=== PATIENT | male | born 1980 | race African-American/Black ===

== ENCOUNTER 2016-09-12 16:54 | Emergency (ER) | payer MEDICAID ==
[2016-09-12] MEDS ORDERED: SODIUM CHLORIDE 0.9% 1,000 ML IV ONE ×2 (17:10→19:50)
[2016-09-12] MEDS ORDERED: METOCLOPRAMIDE 10 MG/2 ML VIAL IVP STA (17:26)
[2016-09-12] MEDS ORDERED: ONDANSETRON 4 MG/2 ML VIAL IVP STA ×2 (17:26→18:56)
[2016-09-12] MEDS ORDERED: METOCLOPRAMIDE 10 MG/2 ML VIAL IVP ONE (17:27)
[2016-09-12] MEDS ORDERED: ONDANSETRON 4 MG/2 ML VIAL ONE ×2 (17:27→18:59)
[2016-09-12] MEDS ORDERED: PROMETHAZINE INJ 25 MG in SODIUM CHLORIDE 0.9% 50 ML IV STA (18:06)
[2016-09-12] MEDS ORDERED: PROMETHAZINE 25 MG/1 ML VIAL ONE (18:08)
[2016-09-12] MEDS ORDERED: DICYCLOMINE 10 MG CAPSULE PO STA (18:55)
[2016-09-12] MEDS ORDERED: DICYCLOMINE 10 MG CAPSULE PO ONE (19:31)
== END 2016-09-12 20:20 | disposition left against medical advice (07) ==
DX: R11.2 Nausea with vomiting, unspecified (principal); R10.13 Epigastric pain; R03.0 Elevated blood-pressure reading, without diagnosis of hypertension; Z86.39 Personal history of other endocrine, nutritional and metabolic disease; G47.419 Narcolepsy without cataplexy; F17.200 Nicotine dependence, unspecified, uncomplicated
CPT/HCPCS: 36415; 80053; 81003; 83690; 85025; 96361; 96365; 96375; 96376; 99283; 99284; A9270

== ENCOUNTER 2017-03-15 11:03 | Outpatient (CLI) | payer MEDICAID | END 2017-03-15 11:04 | disposition critical access hospital (66) | LOC: EMS 11:03 | PROVIDERS: ATTEND Surgery | DX: R10.9 Unspecified abdominal pain (principal); R11.2 Nausea with vomiting, unspecified | CPT/HCPCS: A0425; A0427 ==

== ENCOUNTER 2017-03-15 11:25 | Emergency (ER) | payer MEDICAID ==
[2017-03-15] MEDS ORDERED: HYDROmorphone 1 MG/ML SYRINGE IVP STA ×2 (11:56→12:15)
[2017-03-15] MEDS ORDERED: METOCLOPRAMIDE 10 MG/2 ML VIAL IVP STA (11:56)
[2017-03-15] MEDS ORDERED: SODIUM CHLORIDE 0.9% 1,000 ML IV ONE (11:56)
[2017-03-15] MEDS ORDERED: METOCLOPRAMIDE 10 MG/2 ML VIAL ONE (12:03)
[2017-03-15] MEDS ORDERED: HYDROmorphone 1 MG/ML SYRINGE ONE ×2 (12:03→12:23)
--- NOTE | 2017-03-15 12:07 | ED Physician Documentation ---
PD HPI ABD PAIN - Stated complaint Stated Complaint: N/V - Chief complaint Chief Complaint: Abd Pain - History obtained from History obtained from: Patient - History of Present Illness Timing - onset: Today Timing - duration: Hours Timing - details: Abrupt onset, Still present Quality: Cramping, Aching, Pain Location: RUQ, Epigastric Radiation: Upper back Improved by: No: Vomiting, Position Worsened by: Eating, Moving, Palpation. No: Breathing, Position Associated symptoms: Nausea, Vomiting. No: Fever, Diarrhea, Dysuria Similar symptoms before: Diagnosis (pancreatitis from alcohol in the past, but currently says he has not drank for 4-5 days.) Recently seen: Not recently seen Review of Systems Constitutional: denies: Fever, Chills Nose: denies: Rhinorrhea / runny nose, Congestion Throat: denies: Sore throat Respiratory: denies: Cough GI: reports: Abdominal Pain, Nausea, Vomiting. denies: Constipation, Diarrhea : denies: Dysuria, Frequency Skin: denies: Rash, Lesions Neurologic: reports: Generalized weakness. denies: Focal weakness, Numbness PD PAST MEDICAL HISTORY - Past Medical History Cardiovascular: None Respiratory: None Neuro: None Endocrine/Autoimmune: None GI: Pancreatitis : None HEENT: None Psych: None Musculoskeletal: None Derm: None - Past Surgical History Past Surgical History: Yes Ortho: Other - Present Medications Home Medications: Ambulatory Orders Medication Instructions Recorded Confirmed Ondansetron Odt [Zofran] 4 mg TL Q6H PRN #10 tablet 09/12/16 Ondansetron Odt [Zofran] 4 mg TL Q6H PRN #15 tablet 03/15/17 Oxycodone HCl/Acetaminophen 1 each PO Q6H PRN #20 tablet 03/15/17 [Percocet 5-325 mg Tablet] Promethazine [Phenergan] 25 - 50 mg PO Q6H PRN #30 tab 03/15/17 - Allergies Allergies/Adverse Reactions: Allergies Allergy/AdvReac Type Severity Reaction Status Date / Time No Known Drug Allergies Allergy Verified 05/18/15 06:22 - Social History Does the pt smoke?: Yes Smoking Status: Current every day smoker Does the pt drink ETOH?: Yes Does the pt have substance abuse?: No - Immunizations Immunizations are current?: No - POLST Patient has POLST: No PD ED PE NORMAL - Vitals Vital signs reviewed: Yes - General General: Alert and oriented X 3, Well developed/nourished, Other (appears uncomfortable and in pain. ) - HEENT HEENT: Moist mucous membranes, Pharynx benign - Neck Neck: Supple, no meningeal sign, No adenopathy - Cardiac Cardiac: RRR, No murmur - Respiratory Respiratory: Clear bilaterally - Abdomen Abdomen: Soft, Non distended, No organomegaly, Other (diminished bowel sounds and very tender upper abd/right and mid. ) - Male Male : Deferred - Rectal Rectal: Deferred - Back Back: No CVA TTP - Derm Derm: Normal color, Warm and dry, No rash - Extremities Extremities: No tenderness to palpate, Normal ROM s pain - Neuro Neuro: Alert and oriented X 3, No motor deficit, Normal speech Results - Vitals Vitals: Vital Signs - 24 hr 03/15/17 03/15/17 03/15/17 11:35 13:22 14:04 Temperature 36.8 C Heart Rate 45 L 40 L 42 L Respiratory 14 12 14 Rate Blood Pressure 193/97 H 100/62 107/58 L O2 Saturation 98 98 100 Oxygen O2 Source Room air - Labs Labs: Laboratory Tests 03/15/17 03/15/17 12:34 12:34 WBC 6.0 RBC 5.09 Hgb 13.6 L Hct 41.0 L MCV 80.5 MCH 26.8 L MCHC 33.3 RDW 13.7 Plt Count 265 MPV 6.9 L Neut # 4.9 Lymph # 0.7 L [place] # 0.3 Eos # 0.0 Baso # 0.0 Absolute Nucleated RBC 0.01 Nucleated RBCs 0.1 Sodium 139 Potassium 3.9 Chloride 107 Carbon Dioxide 24 Anion Gap 8.0 BUN 11 Creatinine 0.8 Estimated GFR (MDRD) 133 Glucose 133 H Calcium 8.6 Total Bilirubin 0.5 AST 23 ALT 43 Alkaline Phosphatase 67 Total Protein 6.6 L Albumin 4.3 Globulin 2.3 Albumin/Globulin Ratio 1.9 Lipase 138 H Ethyl Alcohol < 5.0 PD MEDICAL DECISION MAKING - ED course Complexity details: reviewed results, re-evaluated patient (improved with IV meds. He feels okay to try treatment at home. I did not feel imaging needed. ), considered differential, d/w patient Departure - Departure Disposition: Home, Self Care Clinical Impression: Pancreatitis, acute Qualifiers: Pancreatitis type: unspecified pancreatitis type Acute pancreatitis complication: no infection or necrosis Qualified Code(s): K85.90 - Acute pancreatitis without necrosis or infection, unspecified Gastritis Qualifiers: Gastritis type: unspecified gastritis Chronicity: acute Gastritis bleeding: without bleeding Qualified Code(s): K29.00 - Acute gastritis without bleeding Condition: Stable Record reviewed to determine appropriate education?: Yes Instructions: ED Gastritis, ED Pancreatitis Follow-Up: Brittny Rainey PA-C [Primary Care Provider] - Prescriptions: Oxycodone HCl/Acetaminophen [Percocet 5-325 mg Tablet] 1 each PO Q6H PRN #20 tablet PRN Reason: Pain Promethazine [Phenergan] 25 - 50 mg PO Q6H PRN #30 tab PRN Reason: Nausea / Vomiting Ondansetron Odt [Zofran] 4 mg TL Q6H PRN #15 tablet PRN Reason: Nausea / Vomiting Comments: Liquids only for the next 2-3 days. Promethazine and/or ondansetron for nausea and vomiting. Use your acid reducing medicine that you have at home twice daily for the next week and then once daily after that for another couple of weeks. Add Tylenol or Percocet if needed for pain. Recheck if not improving over the next couple days and sooner if worsening. Discharge Date/Time: 03/15/17 14:04
[2017-03-15] MEDS ORDERED: FAMOTIDINE 20 MG/50 ML 50 ML IV ONE ×2 (12:15→12:24)
[2017-03-15] MEDS ORDERED: ONDANSETRON 4 MG/2 ML VIAL IVP STA (12:15)
[2017-03-15] MEDS ORDERED: ONDANSETRON 4 MG/2 ML VIAL ONE (12:23)
[2017-03-15 12:42] LABS: BASOPHILS % (AUTO) 0.8 %; EOSINOPHILS % (AUTO) 0.2 %; HGB - HEMOGLOBIN 13.6 g/dL (14.0-18.0); LYMPHOCYTES # (AUTO) 0.7 10^3/uL (1.5-3.5); LYMPHOCYTES % (AUTO) 11.5 %; MEAN CORPUSCULAR HEMOGLOBIN 26.8 pg (27.0-31.0); MEAN CORPUSCULAR HGB CONC 33.3 g/dL (32.0-36.0); MEAN CORPUSCULAR VOLUME 80.5 fL (80.0-94.0); MEAN PLATELET VOLUME 6.9 fL (7.4-11.4); MONOCYTES # (AUTO) 0.3 10^3/uL (0.0-1.0); MONOCYTES % (AUTO) 4.8 %; NEUTROPHILS # (AUTO) 4.9 10^3/uL (1.5-6.6); NEUTROPHILS % (AUTO) 82.7 %; NUCLEATED RED BLOOD CELLS AUTO 0.1 /100WBC; RED BLOOD COUNT 5.09 10^6/uL (4.70-6.10); RED CELL DISTRIBUTION WIDTH 13.7 % (12.0-15.0)
[2017-03-15 12:55] LABS: ALBUMIN/GLOBULIN RATIO 1.9 (1.0-2.2); BILIRUBIN,TOTAL 0.5 mg/dL (0.2-1.0); BUN - BLOOD UREA NITROGEN 11 mg/dL (6-20); CALCIUM 8.6 mg/dL (8.5-10.3); CARBON DIOXIDE - CO2 24 mmol/L (21-32); CHLORIDE 107 mmol/L (101-111); CREATININE 0.8 mg/dL (0.6-1.2); GFR - MDRD 133 (>89); GLUCOSE 133 mg/dL (70-100); LIPASE 138 U/L (22-51); POTASSIUM 3.9 mmol/L (3.5-5.0); SODIUM 139 mmol/L (135-145); TOTAL PROTEIN 6.6 g/dL (6.7-8.2)
[2017-03-15 14:05] VITALS: BP 107/58
== END 2017-03-15 14:04 | disposition home or self-care (01) ==
LOC: EDUNIT# → ED 11:25
DX: K85.90 Acute pancreatitis without necrosis or infection, unspecified (principal); K29.00 Acute gastritis without bleeding; F17.200 Nicotine dependence, unspecified, uncomplicated
CPT/HCPCS: 36415; 80053; 80320; 83690; 85025; 96365; 96375; 99283; 99284; J1170

== ENCOUNTER 2017-04-03 11:11 | Observation (INO) | payer MEDICAID ==
--- NOTE | 2017-04-03 12:34 | ED Physician Documentation ---
PD HPI ABD PAIN - Stated complaint Stated Complaint: PANCREAS ISSUE - Chief complaint Chief Complaint: Abd Pain - History obtained from History obtained from: Patient - History of Present Illness Timing - onset: Last night Timing - duration: Days (1) Timing - details: Abrupt onset, Still present Quality: Aching, Sharp, Pain Location: RUQ, Epigastric Improved by: No: Eating Worsened by: Eating, Moving, Palpation. No: Position Associated symptoms: Nausea, Vomiting, Hematemesis (some today, along with bile. ). No: Fever, Diarrhea, Constipation, Melena Similar symptoms before: Diagnosis (pancreatitis) Recently seen: Emergency Dept (about a month ago, was treated in ER and did okay at home. He has had hospitalizations at times.) Review of Systems Constitutional: reports: Myalgias. denies: Fever, Chills Nose: denies: Rhinorrhea / runny nose, Congestion Throat: denies: Sore throat Respiratory: denies: Cough GI: reports: Abdominal Pain, Nausea, Vomiting, Hematemesis (traces of blood after vomiting few times. No history of varices.). denies: Diarrhea, Bloody / black stool : denies: Dysuria, Frequency Skin: denies: Rash, Lesions Musculoskeletal: denies: Neck pain, Back pain Neurologic: reports: Generalized weakness. denies: Focal weakness, Numbness, Syncope Endocrine: denies: Weight loss PD PAST MEDICAL HISTORY - Past Medical History Cardiovascular: None Respiratory: None Neuro: None Endocrine/Autoimmune: None GI: Pancreatitis : None HEENT: None Psych: None Musculoskeletal: None Derm: None - Past Surgical History Past Surgical History: Yes Ortho: Other - Present Medications Home Medications: Ambulatory Orders Medication Instructions Recorded Confirmed No Known Home Medications [No 04/03/17 04/03/17 Known Home Medications] - Allergies Allergies/Adverse Reactions: Allergies Allergy/AdvReac Type Severity Reaction Status Date / Time No Known Drug Allergies Allergy Verified 05/18/15 06:22 - Social History Does the pt smoke?: Yes Smoking Status: Current every day smoker Does the pt drink ETOH?: No ETOH Use: Other (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 ) Does the pt have substance abuse?: No - Immunizations Immunizations are current?: No - POLST Patient has POLST: No PD ED PE NORMAL - General General: Alert and oriented X 3, Well developed/nourished - HEENT HEENT: PERRL (nonicteric), Pharynx benign, Other (emesis is bilious with trace gastroccult positive. ). No: Moist mucous membranes - Neck Neck: Supple, no meningeal sign, No adenopathy - Cardiac Cardiac: RRR, No murmur - Respiratory Respiratory: Clear bilaterally - Abdomen Abdomen: Soft, Non distended, No organomegaly, Other (very tender upper abd with guarding. ) - Male Male : Deferred - Rectal Rectal: Deferred - Back Back: No CVA TTP - Derm Derm: Normal color, Warm and dry - Extremities Extremities: No tenderness to palpate, Normal ROM s pain - Neuro Neuro: Alert and oriented X 3, No motor deficit, Normal speech - Psych Psych: Normal mood, Normal affect Results - Vitals Vitals: Vital Signs - 24 hr 04/03/17 04/03/17 04/03/17 11:13 12:34 13:05 Temperature 35.3 C L Heart Rate 48 L 46 L 45 L Respiratory 17 18 16 Rate Blood Pressure 198/110 H 183/115 H 184/113 H O2 Saturation 100 100 95 04/03/17 14:35 Temperature Heart Rate 49 L Respiratory 14 Rate Blood Pressure 120/96 H O2 Saturation 97 Oxygen O2 Source Room air - Labs Labs: Laboratory Tests 04/03/17 04/03/17 04/03/17 12:43 12:43 12:43 WBC 8.6 RBC 5.59 Hgb 14.8 Hct 45.0 MCV 80.5 MCH 26.5 L MCHC 32.9 RDW 13.7 Plt Count 257 MPV 7.6 Neut # 6.9 H Lymph # 1.3 L [place] # 0.4 Eos # 0.0 Baso # 0.1 Absolute Nucleated RBC 0.00 Nucleated RBCs 0.0 Sodium 138 Potassium 3.7 Chloride 104 Carbon Dioxide 25 Anion Gap 9.0 BUN 12 Creatinine 1.2 Estimated GFR (MDRD) 83 L Glucose 129 H Calcium 9.5 Total Bilirubin 0.5 AST 30 ALT 42 Alkaline Phosphatase 79 Total Protein 7.8 Albumin 4.9 Globulin 2.9 Albumin/Globulin Ratio 1.7 Lipase 267 H Ethyl Alcohol < 5.0 Blood Type O POSITIVE Antibody Screen NEGATIVE PD MEDICAL DECISION MAKING - ED course Complexity details: reviewed old records, reviewed results, re-evaluated patient , considered differential, d/w patient Departure - Departure Disposition: 66 [facility] DC/Xfer Clinical Impression: Hematemesis with nausea Pancreatitis, acute Qualifiers: Pancreatitis type: unspecified pancreatitis type Acute pancreatitis complication: no infection or necrosis Qualified Code(s): K85.90 - Acute pancreatitis without necrosis or infection, unspecified Abdominal pain Qualifiers: Abdominal location: epigastric Qualified Code(s): R10.13 - Epigastric pain Vomiting Qualifiers: Vomiting type: unspecified Vomiting Intractability: non-intractable Nausea presence: with nausea Qualified Code(s): R11.2 - Nausea with vomiting, unspecified Condition: Stable Record reviewed to determine appropriate education?: Yes Discharge Date/Time: 04/03/17 16:20
[2017-04-03] MEDS ORDERED: ONDANSETRON 4 MG/2 ML VIAL IVP STA (12:44)
[2017-04-03] MEDS ORDERED: SODIUM CHLORIDE 0.9% 1,000 ML IV ONE (12:44)
[2017-04-03] MEDS ORDERED: FAMOTIDINE 20 MG/50 ML 50 ML IV ONE ×2 (12:44→12:54)
[2017-04-03] MEDS ORDERED: HYDROmorphone 1 MG/ML CARPUJECT IVP STA ×3 (12:44→14:50)
[2017-04-03] MEDS ORDERED: ACETAMINOPHEN 1,000 MG/100 ML 100 ML IV STA (12:45)
[2017-04-03] MEDS ORDERED: HYDROmorphone 1 MG/ML CARPUJECT ONE ×3 (12:54→15:08)
[2017-04-03] MEDS ORDERED: ACETAMINOPHEN 1,000 MG/100 ML 100 ML IV ONE (12:54)
[2017-04-03] MEDS ORDERED: ONDANSETRON 4 MG/2 ML VIAL ONE (12:54)
[2017-04-03 13:10] LABS: BASOPHILS # (AUTO) 0.1 10^3/uL (0.0-0.1); BASOPHILS % (AUTO) 0.6 %; EOSINOPHILS % (AUTO) 0.3 %; HGB - HEMOGLOBIN 14.8 g/dL (14.0-18.0); LYMPHOCYTES # (AUTO) 1.3 10^3/uL (1.5-3.5); LYMPHOCYTES % (AUTO) 14.6 %; MEAN CORPUSCULAR HEMOGLOBIN 26.5 pg (27.0-31.0); MEAN CORPUSCULAR HGB CONC 32.9 g/dL (32.0-36.0); MEAN CORPUSCULAR VOLUME 80.5 fL (80.0-94.0); MEAN PLATELET VOLUME 7.6 fL (7.4-11.4); MONOCYTES # (AUTO) 0.4 10^3/uL (0.0-1.0); MONOCYTES % (AUTO) 5.2 %; NEUTROPHILS # (AUTO) 6.9 10^3/uL (1.5-6.6); NEUTROPHILS % (AUTO) 79.3 %; RED BLOOD COUNT 5.59 10^6/uL (4.70-6.10); RED CELL DISTRIBUTION WIDTH 13.7 % (12.0-15.0); UNCORRECTED WHITE BLOOD COUNT 8.6 x10^3/uL; WHITE BLOOD COUNT 8.6 x10^3/uL (4.8-10.8)
[2017-04-03 13:15] LABS: ALBUMIN/GLOBULIN RATIO 1.7 (1.0-2.2); BILIRUBIN,TOTAL 0.5 mg/dL (0.2-1.0); BUN - BLOOD UREA NITROGEN 12 mg/dL (6-20); CALCIUM 9.5 mg/dL (8.5-10.3); CARBON DIOXIDE - CO2 25 mmol/L (21-32); CHLORIDE 104 mmol/L (101-111); CREATININE 1.2 mg/dL (0.6-1.2); GFR - MDRD 83 (>89); GLUCOSE 129 mg/dL (70-100); LIPASE 267 U/L (22-51); POTASSIUM 3.7 mmol/L (3.5-5.0); SODIUM 138 mmol/L (135-145); TOTAL PROTEIN 7.8 g/dL (6.7-8.2)
[2017-04-03] MEDS ORDERED: KETOROLAC 30 MG/ML VIAL IVP STA (13:30)
[2017-04-03] MEDS ORDERED: METOCLOPRAMIDE 10 MG/2 ML VIAL IVP STA (13:30)
[2017-04-03] MEDS ORDERED: KETOROLAC 30 MG/ML VIAL ONE (13:42)
[2017-04-03] MEDS ORDERED: METOCLOPRAMIDE 10 MG/2 ML VIAL ONE (13:42)
[2017-04-03] MEDS ORDERED: PROMETHAZINE INJ 12.5 MG in SODIUM CHLORIDE 0.9% 50 ML IV STA (15:02)
[2017-04-03] MEDS ORDERED: PROMETHAZINE 25 MG/1 ML VIAL ONE (15:08)
[2017-04-03] MEDS ORDERED: ACETAMINOPHEN 325 MG TABLET PO PRN (15:34)
[2017-04-03] MEDS ORDERED: TEMAZEPAM 15 MG CAPSULE PO PRN (15:34)
[2017-04-03] MEDS ORDERED: PROCHLORPERAZINE 10 MG/2 ML VIAL IVP PRN (15:34)
[2017-04-03] MEDS ORDERED: IOPAMIDOL-300 100 ML VIAL ONE (16:21)
[2017-04-03] MEDS: HYDROmorphone 1 MG/ML CARPUJECT IVP PRN ×2 (16:42→21:34)
[2017-04-03] MEDS: PANTOPRAZOLE 40 MG VIAL IVP SCH (16:42)
[2017-04-03] MEDS: SODIUM CHLORIDE FLUSH 0.9% 10 ML SYRINGE IVP SCH (16:42)
[2017-04-03] MEDS: DEXTROSE 5%-0.9% NACL 1,000 ML IV SCH (16:43)
[2017-04-03] MEDS ORDERED: IOPAMIDOL-300 100 ML VIAL IVP ONE (18:49)
[2017-04-03] MEDS: SODIUM CHLORIDE FLUSH 0.9% 10 ML SYRINGE IVP PRN (21:35)
--- NOTE | 2017-04-03 23:51 | CT Preliminary Report ---
Exam: CT Abdomen W/ IMPRESSION: 1. Normal appearance of pancreas by CT. This does not exclude pancreatitis, but excludes pancreatic n ecrosis, pseudocyst, mass and pancreatic duct dilation. [facility] S[facility]: [id number]
--- NOTE | 2017-04-03 23:54 | CT Report ---
EXAM: CT ABDOMEN EXAM DATE: 04/03/2017 06:53 PM. CLINICAL HISTORY: Abd pain, suspect pancreatitis. COMPARISON: 12/15/2014. TECHNIQUE: Routine helical CT imaging was performed through the abdomen. IV contrast: 100 cc Isovue- 300 IV Enteric contrast: No. Reconstruction: Coronal and sagittal. In accordance with CT protocol optimization, one or more of the following dose reduction techniques w ere utilized for this exam: automated exposure control, adjustment of mA and/or KV based on patient s ize, or use of iterative reconstructive technique. FINDINGS: Lung Bases: Unremarkable. Liver: Normal. No masses. Gallbladder/Bile Ducts: Unremarkable. Spleen: Normal. Pancreas: The pancreas is normal in size with normal enhancement. No pancreatic mass. No pancreatic d uct dilation. Splenic vein is patent. C Adrenal Glands: Normal. Kidneys: Normal. No masses or hydronephrosis. Peritoneal Cavity/Bowel: No dilated bowel loops. No abnormal fluid or gas collection. The appendix is well visualized and normal. Vasculature: Abdominal aorta is normal in caliber. Bones: No significant abnormality. Other: None. IMPRESSION: 1. Normal appearance of pancreas by CT. This does not exclude pancreatitis, but excludes pancreatic n ecrosis, pseudocyst, mass and pancreatic duct dilation. [facility] Referring Provider Line: [phone] SITE ID: [id number]
--- NOTE | 2017-04-04 01:06 | HISTORY & PHYSICAL EXAMINATION ---
DATE OF ADMISSION: 04/03/2017 HISTORY OF PRESENT ILLNESS: This is a 36-year-old black male with a history of pancreatitis from excessive alcohol for which he was admitted 2 years ago. One month ago he presented to our emergency room with similar symptoms and was felt to have an exacerbation of pancreatitis; however, it was mild, controlled with pain medications and he was advised to change his diet. The patient presents now with complaint of slight abdominal pain last night, which got better overnight and then this morning was severe. He stated that he did go out to a restaurant and had various food and possibly alcohol with his parents the previous evening. Otherwise, he states that he has not had any alcohol intake for about a year. Today, the pain was severe, rated 10/10 in the epigastrium and radiating to the left upper quadrant area and associated with vomiting. He does think that there was "blood in the emesis". He denies any significant nausea and he denies any diarrhea. There was no fever. There have been no other new events, changes in medications or any other symptoms. ALLERGIES: NONE. MEDICATIONS AT HOME: None. SOCIAL HISTORY: The patient is a smoker of less than a pack a day. He denies any alcohol use for 1 year. Prior to that, he stated that he was a regular drinker. The patient denies any substance abuse. REVIEW OF SYSTEMS: He denies any cardiopulmonary symptoms. He denies any neurologic symptoms. Complete 10-system review of systems is also negative. FAMILY HISTORY: There is no family history of significant findings such as diabetes. PHYSICAL EXAMINATION: GENERAL: Shows black male who is in moderate to severe distress. He is standing at the side of the bed, leaning over toward the [place]. He states his pain is currently 10/10 (despite IV pain medications given in the emergency room x3). VITAL SIGNS: Blood pressure 198/110, pulse is 48, temperature is 35.3, respiratory rate is 17. He has normal saturation on room air. HEENT: Unremarkable. He has moist mucosa. NECK: Shows no JVD, no thyromegaly, no carotid bruits, no adenopathy. CHEST: Clear. HEART: Heart sounds are normal without any murmurs heard. ABDOMEN: Tense, but there is no guarding or rebound. Decreased bowel sounds. No masses are palpated. He is mildly tender in the epigastrium and left upper quadrant. RECTAL: Exam was deferred. EXTREMITIES: No clubbing, cyanosis or edema. No calf tenderness. No streaks or redness. NEUROLOGIC: Neurologically he is grossly intact. LABORATORY: Sodium 138, potassium 3.7, BUN 12, creatinine 1.2, AST 30, ALT 42, lipase 267. Glucose 129 on nonfasting sample. White blood count 8.6 with neutrophil count of 6.9, hemoglobin 14.8, platelet count normal at 257. There was no INR done. His toxicology showed no ethyl alcohol. IMAGING: No imaging was done. DIAGNOSIS: 1. Abdominal pain. This is likely from his pancreatitis as the symptoms are similar to 1 month ago and 2 years ago. This is evidenced by his elevation of lipase and sequence of events of possible change in diet. 2. Prior history of alcohol use. The patient describes no use in over a year. 3. Hypertension. This is likely due to the level of his pain being severe. 4. Bradycardia. He has had chronic bradycardia on previous emergency room visits despite being on no heart rate slowing medications. PLAN: The patient will be placed in observation. He will be kept n.p.o. He will receive IV pain medications. An amylase will be checked and the amylase and lipase will be followed. A CT of the abdomen will be done to evaluate the pancreas and overall abdominal cavity for etiologies for his pain. IV hydration will be started using D5 normal saline with potassium 20 mEq while he is n.p.o. Followup of his electrolytes and CBC. JOB #: [id number] EXT JOB #:[id number] YANIRA
[2017-04-04] MEDS: HYDROmorphone 1 MG/ML CARPUJECT IVP PRN ×3 (01:35→09:44)
[2017-04-04] MEDS: DEXTROSE 5%-0.9% NACL 1,000 ML IV SCH (04:42)
[2017-04-04 06:06] LABS: BASOPHILS # (AUTO) 0.1 10^3/uL (0.0-0.1); BASOPHILS % (AUTO) 0.5 %; EOSINOPHILS # (AUTO) 0.2 10^3/uL (0.0-0.7); EOSINOPHILS % (AUTO) 1.8 %; HCT - HEMATOCRIT 39.4 % (42.0-52.0); HGB - HEMOGLOBIN 12.8 g/dL (14.0-18.0); LYMPHOCYTES # (AUTO) 3.9 10^3/uL (1.5-3.5); LYMPHOCYTES % (AUTO) 38.2 %; MEAN CORPUSCULAR HEMOGLOBIN 26.6 pg (27.0-31.0); MEAN CORPUSCULAR HGB CONC 32.6 g/dL (32.0-36.0); MEAN CORPUSCULAR VOLUME 81.5 fL (80.0-94.0); MEAN PLATELET VOLUME 7.7 fL (7.4-11.4); NEUTROPHILS % (AUTO) 49.5 %; NUCLEATED RED BLOOD CELLS AUTO 0.1 /100WBC; RED BLOOD COUNT 4.83 10^6/uL (4.70-6.10); UNCORRECTED WHITE BLOOD COUNT 10.2 x10^3/uL; WHITE BLOOD COUNT 10.2 x10^3/uL (4.8-10.8)
[2017-04-04 06:19] LABS: CALCIUM 8.8 mg/dL (8.5-10.3); CREATININE 1.1 mg/dL (0.6-1.2); POTASSIUM 3.6 mmol/L (3.5-5.0)
[2017-04-04] MEDS: SODIUM CHLORIDE FLUSH 0.9% 10 ML SYRINGE IVP PRN (06:57)
[2017-04-04] MEDS: PANTOPRAZOLE 40 MG VIAL IVP SCH (06:57)
[2017-04-04] MEDS: SODIUM CHLORIDE FLUSH 0.9% 10 ML SYRINGE IVP SCH ×2 (06:57→09:44)
[2017-04-04] MEDS ORDERED: POLYETHYLENE GLYCOL 3350 17 GM PACKET PO SCH (09:00)
[2017-04-04] MEDS ORDERED: HYDROmorphone 2 MG TABLET PO PRN (11:05)
--- NOTE | 2017-04-04 15:45 | Discharge Plan ---
Discharge Plan Disposition: 01 Home, Self Care Condition: Stable Diet: Soft Activity Restrictions: Activity as Tolerated Shower Restrictions: No Driving Restrictions: No Weight Bearing: Full Weight No Smoking: If you smoke, Please STOP! Call for help.
[2017-04-04 16:03] VITALS: BP 129/78
--- NOTE | 2017-04-04 18:08 | DISCHARGE SUMMARY ---
DATE OF ADMISSION: 04/03/2017 DATE OF DISCHARGE: 04/04/2017 PRESENTATION: This is a 36-year-old black male with a history of heavy alcohol use in the past, none for 1 year. He had pancreatitis approximately 9 months ago , requiring hospitalization for hydration and pain management. He has been more strictly following dietary restrictions and confirms that he has not had any alcohol in about 1 year. One month ago, he presented to the emergency room with a pancreatitis exacerbation that was managed with outpatient treatment with dietary restriction and pain medications. The patient presented this time after abdominal pain the night before admission and then severe abdominal pain the morning of admission, along with nausea and vomiting, for which he required antiemetics beginning in the emergency room and was placed in observation for further management due to intractable vomiting and continued abdominal pain. DISCHARGE DIAGNOSIS: Presumed pancreatitis exacerbation. HOSPITAL COURSE: The patient required IV fluids, n.p.o. status, and IV anti- emetics, and he slowly had improvement of his nausea and abdominal pain. He was able to tolerate a liquid diet, which was advanced over the following day, and taking p.o. pain medications and p.o. Compazine. He had minimal nausea and minimal abdominal pain, and was stable for discharge. During the hospital stay, he underwent blood tests showing a lipase level of 267 that improved to 46, and an amylase level of 215 that improved to 182. He had a normal sodium, potassium , BUN, and creatinine. He had normal liver tests. He had no alcohol present on his toxicology screen. He had imaging of the abdomen done which showed no pancreatic enlargement, no pancreatic mass, and no duct dilatation, the splenic vein was patent, and the overall impression was normal appearance of the pancreas by CT and an overall stable abdominal exam. CONDITION AT DISCHARGE: The patient was afebrile, warm and dry, with a negative abdominal exam and positive bowel sounds (he had also had a bowel movement). MEDICATIONS AT DISCHARGE: Oxycodone/Tylenol 7.5/325 mg q.8h. p.r.n. pain, 10 tablets, and Compazine 10 mg p.o. q.12h. p.r.n. nausea, 10 tablets given (the patient was on no medications at the time of admission). FOLLOWUP: Recommended with his primary care doctor. Time required for discharge: 30 minutes. JOB #: [id number] EXT JOB #:[id number] YANIRA
== END 2017-04-04 16:40 | disposition home or self-care (01) ==
LOC: ED 11:11 → OBS 15:34
PROVIDERS: ADMIT Internal Medicine; ATTEND Internal Medicine
DX: R10.10 Upper abdominal pain, unspecified (principal); R11.2 Nausea with vomiting, unspecified; F17.210 Nicotine dependence, cigarettes, uncomplicated; R00.1 Bradycardia, unspecified; Z87.19 Personal history of other diseases of the digestive system; Z72.89 Other problems related to lifestyle; R94.8 Abnormal results of function studies of other organs and systems
CPT/HCPCS: 36415; 74160; 80048; 80053; 80320; 82150; 83690; 85025; 86850; 86900; 86901; 96361; 96365; 96375; 96376; 99218; 99283; 99285; A9270; J0131; J1170; J7040; Q9967; 99284

== ENCOUNTER 2017-04-23 08:44 | Outpatient (CLI) | payer MEDICAID | END 2017-04-23 08:45 | disposition critical access hospital (66) | LOC: EMS 08:44 | PROVIDERS: ATTEND Surgery | DX: R10.9 Unspecified abdominal pain (principal) | CPT/HCPCS: A0425; A0426 ==

== ENCOUNTER 2017-04-23 09:01 | Emergency (ER) | payer MEDICAID ==
--- NOTE | 2017-04-23 09:47 | ED Physician Documentation ---
PD HPI ABD PAIN - Stated complaint Stated Complaint: LUQ PX - Chief complaint Chief Complaint: Abd Pain - History obtained from History obtained from: Patient - History of Present Illness Timing - onset: Today Timing - duration: Hours Timing - details: Abrupt onset, Still present Quality: Aching, Sharp, Pain Location: Epigastric, LUQ Radiation: Upper back Worsened by: Eating Associated symptoms: Nausea, Loss of appetite. No: Fever, Diarrhea, Constipation, Melena Similar symptoms before: Diagnosis (pancreatitis chronic recurrent) Recently seen: Emergency Dept, Admitted (within past couple months, was in hospital for a day, with lipase at about 200s level, so not too high.) Review of Systems Constitutional: denies: Fever, Chills Nose: denies: Rhinorrhea / runny nose, Congestion Throat: denies: Sore throat Cardiac: denies: Chest pain / pressure Respiratory: denies: Cough GI: reports: Abdominal Pain. denies: Constipation, Diarrhea : denies: Dysuria, Frequency PD PAST MEDICAL HISTORY - Past Medical History Cardiovascular: None Respiratory: None Neuro: None Endocrine/Autoimmune: None GI: Pancreatitis : None HEENT: None Psych: None Musculoskeletal: None Derm: None - Past Surgical History Past Surgical History: Yes Ortho: Other - Present Medications Home Medications: Ambulatory Orders Medication Instructions Recorded Confirmed Promethazine HCl 25 mg PO Q6H PRN 04/04/17 04/04/17 HYDROcod/ACETAM 5/325 [[place] 5/325] 1 tab PO Q6H PRN #25 tablet 04/23/17 Omeprazole [PriLOSEC] 20 mg PO DAILY 04/23/17 04/23/17 Ondansetron Odt [Zofran] 4 mg TL Q6H PRN #15 tablet 04/23/17 - Allergies Allergies/Adverse Reactions: Allergies Allergy/AdvReac Type Severity Reaction Status Date / Time No Known Drug Allergies Allergy Verified 05/18/15 06:22 - Living Situation Living Arrangement: reports: At home - Social History Does the pt smoke?: Yes Smoking Status: Current every day smoker Does the pt drink ETOH?: No Does the pt have substance abuse?: No - Immunizations Immunizations are current?: No - POLST Patient has POLST: No PD ED PE NORMAL - Vitals Vital signs reviewed: Yes - General General: Alert and oriented X 3, Well developed/nourished, Other (appears in pain) - HEENT HEENT: PERRL (nonicteric), Moist mucous membranes, Pharynx benign - Neck Neck: Supple, no meningeal sign, No adenopathy - Cardiac Cardiac: RRR, No murmur - Respiratory Respiratory: Clear bilaterally - Abdomen Abdomen: Normal bowel sounds, Soft, Non distended, No organomegaly, Other (very tender epigastric area. Not laterally at right per se. ) - Male Male : Deferred - Rectal Rectal: Deferred - Back Back: No CVA TTP - Derm Derm: Normal color, Warm and dry Results - Vitals Vitals: Vital Signs - 24 hr 04/23/17 04/23/17 04/23/17 09:02 10:04 11:30 Temperature 37.0 C 36.7 C 36.1 C L Heart Rate 49 L 42 L 42 L Respiratory 16 20 16 Rate Blood Pressure 133/83 H 122/69 135/69 H O2 Saturation 98 98 99 04/23/17 12:31 Temperature Heart Rate 43 L Respiratory Rate Blood Pressure 120/74 O2 Saturation 96 Oxygen O2 Source Room air - Labs Labs: Laboratory Tests 04/23/17 04/23/17 11:00 11:00 WBC 5.7 RBC 4.99 Hgb 13.1 L Hct 39.7 L MCV 79.6 L MCH 26.3 L MCHC 33.0 RDW 14.0 Plt Count 231 MPV 7.3 L Neut # 3.2 Lymph # 1.7 [place] # 0.6 Eos # 0.2 Baso # 0.1 Absolute Nucleated RBC 0.01 Nucleated RBC % 0.1 Sodium 139 Potassium 4.0 Chloride 106 Carbon Dioxide 22 Anion Gap 11.0 BUN 15 Creatinine 1.0 Estimated GFR (MDRD) 102 Glucose 97 Calcium 8.8 Total Bilirubin 0.5 AST 19 ALT 26 Alkaline Phosphatase 69 Total Protein 6.6 L Albumin 4.1 Globulin 2.5 Albumin/Globulin Ratio 1.6 Lipase 53 H PD MEDICAL DECISION MAKING - ED course Complexity details: re-evaluated patient (improved enough he feels able to go home and try outpatient. Numbers are good. Unsure if pancreatic vs gastric. Treating as both. ), considered differential, d/w patient Departure - Departure Disposition: 01 Home, Self Care Clinical Impression: Gastritis Qualifiers: Gastritis type: unspecified gastritis Chronicity: acute Gastritis bleeding: without bleeding Qualified Code(s): K29.00 - Acute gastritis without bleeding Abdominal pain Qualifiers: Abdominal location: upper abdomen, unspecified Qualified Code(s): R10.10 - Upper abdominal pain, unspecified Pancreatitis Qualifiers: Chronicity: chronic Pancreatitis type: unspecified pancreatitis type Qualified Code(s): K86.1 - Other chronic pancreatitis Condition: Stable Record reviewed to determine appropriate education?: Yes Instructions: ED Gastritis, ED Pancreatitis Follow-Up: Maximiliano Figueroa MD [Primary Care Provider] - Prescriptions: HYDROcod/ACETAM 5/325 [[place] 5/325] 1 tab PO Q6H PRN #25 tablet PRN Reason: Pain Ondansetron Odt [Zofran] 4 mg TL Q6H PRN #15 tablet PRN Reason: Nausea / Vomiting Comments: Liquid diet for the next few days. Progress to food as you feel better. Continue your acid reducing medicines at home daily. Ondansetron if needed for nausea. Hydrocodone if needed for pain. Recheck if not improved over the next several days and return sooner if worsening. Discharge Date/Time: 04/23/17 12:32
[2017-04-23] MEDS ORDERED: HYDROmorphone 1 MG/ML CARPUJECT IVP STA ×2 (10:10→11:39)
[2017-04-23] MEDS ORDERED: KETOROLAC 60 MG/2 ML VIAL IVP STA (10:10)
[2017-04-23] MEDS ORDERED: SODIUM CHLORIDE 0.9% 1,000 ML IV ONE (10:10)
[2017-04-23] MEDS ORDERED: FAMOTIDINE 20 MG/50 ML 50 ML IV ONE ×2 (10:11→10:26)
[2017-04-23] MEDS ORDERED: MAG HYDROX/AL HYDROX/SIMETH 30 ML UDC PO STA (10:11)
[2017-04-23] MEDS ORDERED: HYDROmorphone 1 MG/ML SYRINGE ONE ×2 (10:20→11:47)
[2017-04-23] MEDS ORDERED: KETOROLAC 30 MG/ML VIAL ONE (10:20)
[2017-04-23] MEDS ORDERED: SODIUM CHLORIDE FLUSH 0.9% 10 ML SYRINGE IVP ONE (10:20)
[2017-04-23] MEDS ORDERED: MAG HYDROX/AL HYDROX/SIMETH 30 ML UDC ONE (10:27)
[2017-04-23 11:07] LABS: BASOPHILS # (AUTO) 0.1 10^3/uL (0.0-0.1); BASOPHILS % (AUTO) 0.9 %; EOSINOPHILS # (AUTO) 0.2 10^3/uL (0.0-0.7); EOSINOPHILS % (AUTO) 2.8 %; HCT - HEMATOCRIT 39.7 % (42.0-52.0); HGB - HEMOGLOBIN 13.1 g/dL (14.0-18.0); LYMPHOCYTES # (AUTO) 1.7 10^3/uL (1.5-3.5); LYMPHOCYTES % (AUTO) 28.9 %; MEAN CORPUSCULAR HEMOGLOBIN 26.3 pg (27.0-31.0); MEAN CORPUSCULAR VOLUME 79.6 fL (80.0-94.0); MEAN PLATELET VOLUME 7.3 fL (7.4-11.4); MONOCYTES # (AUTO) 0.6 10^3/uL (0.0-1.0); MONOCYTES % (AUTO) 10.8 %; NEUTROPHILS # (AUTO) 3.2 10^3/uL (1.5-6.6); NEUTROPHILS % (AUTO) 56.6 %; NUCLEATED RED BLOOD CELLS AUTO 0.1 /100WBC; RED BLOOD COUNT 4.99 10^6/uL (4.70-6.10); UNCORRECTED WHITE BLOOD COUNT 5.7 x10^3/uL; WHITE BLOOD COUNT 5.7 x10^3/uL (4.8-10.8)
[2017-04-23 11:21] LABS: ALBUMIN/GLOBULIN RATIO 1.6 (1.0-2.2); BILIRUBIN,TOTAL 0.5 mg/dL (0.2-1.0); CALCIUM 8.8 mg/dL (8.5-10.3); TOTAL PROTEIN 6.6 g/dL (6.7-8.2)
[2017-04-23 12:32] VITALS: BP 120/74
== END 2017-04-23 12:32 | disposition home or self-care (01) ==
LOC: EDUNIT# → ED 09:01
DX: K29.00 Acute gastritis without bleeding (principal); K86.1 Other chronic pancreatitis; F17.200 Nicotine dependence, unspecified, uncomplicated
CPT/HCPCS: 36415; 80053; 83690; 85025; 96361; 96365; 96375; 96376; 99284; A9270; J1170

== ENCOUNTER 2017-04-27 08:19 | Outpatient (CLI) | payer MEDICAID | END 2017-04-27 08:20 | disposition critical access hospital (66) | LOC: EMS 08:19 | PROVIDERS: ATTEND Surgery | DX: R10.9 Unspecified abdominal pain (principal); R11.2 Nausea with vomiting, unspecified | CPT/HCPCS: A0425; A0427 ==

== ENCOUNTER 2017-04-27 08:37 | Inpatient (IN) | payer MEDICAID ==
[2017-04-27] MEDS ORDERED: SODIUM CHLORIDE 0.9% 1,000 ML IV ONE (09:03)
[2017-04-27] MEDS ORDERED: ONDANSETRON 4 MG/2 ML VIAL IVP STA (09:03)
[2017-04-27] MEDS ORDERED: MAG HYDROX/AL HYDROX/SIMETH 30 ML UDC PO STA (09:03)
[2017-04-27] MEDS ORDERED: HYDROmorphone 1 MG/ML CARPUJECT IVP STA ×2 (09:03→10:09)
[2017-04-27] MEDS ORDERED: LIDOCAINE VISCOUS 2% 15 ML UDC MM STA (09:04)
--- NOTE | 2017-04-27 09:06 | ED Physician Documentation ---
PD HPI ABD PAIN - Stated complaint Stated Complaint: VOMITING - Chief complaint Chief Complaint: Abd Pain - History obtained from History obtained from: Patient - History of Present Illness Timing - onset: Enter time (0600), Today Timing - duration: Hours Timing - details: Abrupt onset, Still present Quality: Sharp, Pain Location: Epigastric Improved by: Laying still Worsened by: Eating, Moving, Position Associated symptoms: Nausea, Vomiting, Constipation, Loss of appetite Similar symptoms before: Diagnosis (pancreatitis) Recently seen: Emergency Dept (4 days ago), Admitted (in [place]) - Additional information Additional information: 36-year-old male with history of recurrent pancreatitis has developed acute pain this morning. He has been having pain this past week and has been seen in the emergency department and at that point had minimally elevated lipase at 53. He was treated for gastritis and pancreatitis. He has been eating some chips and has been able to hydrate. He states this morning his pain was suddenly much worse and he is coming here for evaluation. He relates the pain is in the epigastric area and severe similar to prior. He has had a bowel movement this morning and felt the pain was worse following that. Review of Systems Constitutional: denies: Fever Eyes: denies: Decreased vision Ears: denies: Ear pain Nose: denies: Congestion Throat: denies: Sore throat Cardiac: denies: Chest pain / pressure, Palpitations Respiratory: denies: Dyspnea, Cough GI: reports: Abdominal Pain, Nausea, Vomiting, Constipation : denies: Dysuria, Frequency Skin: denies: Rash Musculoskeletal: denies: Neck pain, Back pain, Extremity pain PD PAST MEDICAL HISTORY - Past Medical History Cardiovascular: None Respiratory: None Neuro: None Endocrine/Autoimmune: None GI: Pancreatitis : None HEENT: None Psych: None Musculoskeletal: None Derm: None - Past Surgical History Past Surgical History: Yes Ortho: Other - Present Medications Home Medications: Ambulatory Orders Medication Instructions Recorded Confirmed Promethazine HCl 25 mg PO Q6H PRN 04/04/17 04/27/17 HYDROcod/ACETAM 5/325 [[place] 5/325] 1 tab PO Q6H PRN #25 tablet 04/23/17 Omeprazole [PriLOSEC] 20 mg PO DAILY 04/23/17 04/27/17 Ondansetron Odt [Zofran] 4 mg TL Q6H PRN #15 tablet 04/23/17 04/27/17 - Allergies Allergies/Adverse Reactions: Allergies Allergy/AdvReac Type Severity Reaction Status Date / Time No Known Drug Allergies Allergy Verified 05/18/15 06:22 - Social History Does the pt smoke?: Yes Smoking Status: Current every day smoker Does the pt drink ETOH?: No Does the pt have substance abuse?: No - Immunizations Immunizations are current?: No - POLST Patient has POLST: No PD ED PE NORMAL - Vitals Vital signs reviewed: Yes (hypertensive ) - General General: Well developed/nourished, Other (The patient appears to be in pain with fingerer tone and flat affect) - HEENT HEENT: Atraumatic, PERRL, EOMI, Ears normal, Other (dry mucous membranes) - Neck Neck: Supple, no meningeal sign, No bony TTP - Cardiac Cardiac: No murmur, Other (bradycardic) - Respiratory Respiratory: No respiratory distress, Clear bilaterally - Abdomen Abdomen: Soft, Other (There is epigastric tenderness specifically and reproducibly and this is the pain the patient is experiencing. There is minimal tenderness suprapubic. ) - Back Back: No CVA TTP, No spinal TTP - Derm Derm: Normal color, Warm and dry, No rash - Extremities Extremities: No deformity, No edema - Neuro Neuro: No motor deficit, No sensory deficit - Psych Psych: Normal mood Results - Vitals Vitals: Vital Signs - 24 hr 04/27/17 04/27/17 04/27/17 08:42 10:07 11:49 Temperature 36.1 C L 36.5 C Heart Rate 47 L 50 L 50 L Respiratory 18 16 18 Rate Blood Pressure 197/98 H 209/119 H 141/78 H O2 Saturation 100 100 100 04/27/17 13:10 Temperature Heart Rate 48 L Respiratory 20 Rate Blood Pressure 118/68 O2 Saturation 98 Oxygen O2 Source Room air - Labs Labs: Laboratory Tests 04/27/17 04/27/17 04/27/17 09:25 09:25 09:25 WBC 7.4 RBC 5.60 Hgb 14.6 Hct 44.9 MCV 80.2 MCH 26.1 L MCHC 32.5 RDW 14.3 Plt Count 242 MPV 7.8 Neut # 5.1 Lymph # 1.5 [place] # 0.6 Eos # 0.2 Baso # 0.0 Absolute Nucleated RBC 0.01 Nucleated RBC % 0.1 Sodium 141 Potassium 3.7 Chloride 105 Carbon Dioxide 24 Anion Gap 12.0 BUN 12 Creatinine 1.1 Estimated GFR (MDRD) 92 Glucose 117 H Calcium 9.6 Total Bilirubin 0.4 AST 29 ALT 29 Alkaline Phosphatase 72 Troponin I < 0.04 Total Protein 7.8 Albumin 4.8 Globulin 3.0 Albumin/Globulin Ratio 1.6 Lipase 88 H Urine Color Urine Clarity Urine pH Ur Specific [place] Urine Protein Urine Glucose (UA) Urine Ketones Urine Occult Blood Urine Nitrite Urine Bilirubin Urine Urobilinogen Ur Leukocyte Esterase Ur Microscopic Review Urine Culture Comments Urine Opiates Screen Ur Oxycodone Screen Urine Methadone Screen Ur Propoxyphene Screen Ur Barbiturates Screen Ur Tricyclics Screen Ur Phencyclidine Scrn Ur Amphetamine Screen U Methamphetamines Scrn U Benzodiazepines Scrn Urine Cocaine Screen U Cannabinoids Screen Ethyl Alcohol < 5.0 04/27/17 11:00 WBC RBC Hgb Hct MCV MCH MCHC RDW Plt Count MPV Neut # Lymph # [place] # Eos # Baso # Absolute Nucleated RBC Nucleated RBC % Sodium Potassium Chloride Carbon Dioxide Anion Gap BUN Creatinine Estimated GFR (MDRD) Glucose Calcium Total Bilirubin AST ALT Alkaline Phosphatase Troponin I Total Protein Albumin Globulin Albumin/Globulin Ratio Lipase Urine Color YELLOW Urine Clarity CLEAR Urine pH 7.0 Ur Specific [place] 1.025 Urine Protein NEGATIVE Urine Glucose (UA) NEGATIVE Urine Ketones NEGATIVE Urine Occult Blood NEGATIVE Urine Nitrite NEGATIVE Urine Bilirubin NEGATIVE Urine Urobilinogen 0.2 (NORMAL) Ur Leukocyte Esterase NEGATIVE Ur Microscopic Review NOT INDICATED Urine Culture Comments NOT INDICATED Urine Opiates Screen NEGATIVE Ur Oxycodone Screen NEGATIVE Urine Methadone Screen NEGATIVE Ur Propoxyphene Screen NEGATIVE Ur Barbiturates Screen NEGATIVE Ur Tricyclics Screen NEGATIVE Ur Phencyclidine Scrn NEGATIVE Ur Amphetamine Screen NEGATIVE U Methamphetamines Scrn NEGATIVE U Benzodiazepines Scrn NEGATIVE Urine Cocaine Screen NEGATIVE U Cannabinoids Screen POSITIVE H Ethyl Alcohol - Rads (name of study) CT abdomen pelvis with Radiology: Prelim report reviewed (Impression: 1. 7 mm proximal transverse colon wall thickening with mild adjacent soft tissue stranding is suspected on series 3, image 42. Possible colitis. Consider follow-up with gastroenterology. 2. Small amount of free fluid within the pelvis and the right paracolic gutter. No free intraperitoneal air.), EMP read indepedently, See rad report Procedures - IVC sono (time) 0900 Bedside IVC sono: IVC measures (cm) (1.42), Euvolemia (close) PD MEDICAL DECISION MAKING - ED course Complexity details: reviewed old records, reviewed results, re-evaluated patient ED course: 36-year-old male with a history of pancreatitis has similar symptoms over the past several days and he has not improved from his recent visit to the emergency department. Today his pain was much worse and following a bowel movement he became intolerable and is come back to the emergency department. Here in the emergency department pain control was difficult. This is not typical for this patient. He usually has good relief of pain with the pain medications. He required repeated doses of Dilaudid and eventually got some improvement with intravenous fentanyl. A CT scan of the abdomen was obtained to evaluate the pancreas and the scan was concerning for some colitis in the proximal transverse colon and small amount of free fluid in the pelvis. I have asked Dr. Powers to evaluate the patient for admission for observation. Dr. Powers this coming to the emergency department evaluates the patient and he is of the impression this is likely pancreatitis and the colon inflammation is a result of its proximity to the pancreas. He asked we admit the patient to medicine and he will consult to do a colonoscopy. Departure - Departure Disposition: [facility] DC/Xfer Clinical Impression: Pancreatitis Qualifiers: Chronicity: acute Pancreatitis type: unspecified pancreatitis type Acute pancreatitis complication: no infection or necrosis Qualified Code(s): K85.90 - Acute pancreatitis without necrosis or infection, unspecified Condition: Stable
[2017-04-27] MEDS ORDERED: HYDROmorphone 1 MG/ML SYRINGE ONE ×2 (09:23→10:15)
[2017-04-27] MEDS ORDERED: LIDOCAINE VISCOUS 2% 15 ML UDC MM ONE (09:24)
[2017-04-27] MEDS ORDERED: ONDANSETRON 4 MG/2 ML VIAL ONE (09:24)
[2017-04-27] MEDS ORDERED: MAG HYDROX/AL HYDROX/SIMETH 30 ML UDC ONE (09:24)
[2017-04-27 09:32] LABS: BASOPHILS % (AUTO) 0.7 %; EOSINOPHILS # (AUTO) 0.2 10^3/uL (0.0-0.7); EOSINOPHILS % (AUTO) 2.5 %; HCT - HEMATOCRIT 44.9 % (42.0-52.0); HGB - HEMOGLOBIN 14.6 g/dL (14.0-18.0); LYMPHOCYTES # (AUTO) 1.5 10^3/uL (1.5-3.5); LYMPHOCYTES % (AUTO) 20.8 %; MEAN CORPUSCULAR HEMOGLOBIN 26.1 pg (27.0-31.0); MEAN CORPUSCULAR HGB CONC 32.5 g/dL (32.0-36.0); MEAN CORPUSCULAR VOLUME 80.2 fL (80.0-94.0); MEAN PLATELET VOLUME 7.8 fL (7.4-11.4); MONOCYTES # (AUTO) 0.6 10^3/uL (0.0-1.0); MONOCYTES % (AUTO) 7.6 %; NEUTROPHILS # (AUTO) 5.1 10^3/uL (1.5-6.6); NEUTROPHILS % (AUTO) 68.4 %; NUCLEATED RED BLOOD CELLS AUTO 0.1 /100WBC; RED CELL DISTRIBUTION WIDTH 14.3 % (12.0-15.0); UNCORRECTED WHITE BLOOD COUNT 7.4 x10^3/uL; WHITE BLOOD COUNT 7.4 x10^3/uL (4.8-10.8)
[2017-04-27 09:46] LABS: ALBUMIN/GLOBULIN RATIO 1.6 (1.0-2.2); BILIRUBIN,TOTAL 0.4 mg/dL (0.2-1.0); BUN - BLOOD UREA NITROGEN 12 mg/dL (6-20); CALCIUM 9.6 mg/dL (8.5-10.3); CARBON DIOXIDE - CO2 24 mmol/L (21-32); CHLORIDE 105 mmol/L (101-111); CREATININE 1.1 mg/dL (0.6-1.2); GFR - MDRD 92 (>89); GLUCOSE 117 mg/dL (70-100); LIPASE 88 U/L (22-51); POTASSIUM 3.7 mmol/L (3.5-5.0); SODIUM 141 mmol/L (135-145); TOTAL PROTEIN 7.8 g/dL (6.7-8.2)
[2017-04-27] MEDS ORDERED: METOCLOPRAMIDE 10 MG/2 ML VIAL IVP STA (09:59)
[2017-04-27] MEDS ORDERED: METOCLOPRAMIDE 10 MG/2 ML VIAL ONE (10:06)
[2017-04-27] MEDS ORDERED: fentaNYL 100 MCG/2 ML VIAL IVP STA (11:10)
[2017-04-27] MEDS ORDERED: fentaNYL 100 MCG/2 ML VIAL ONE (11:40)
[2017-04-27 11:41] LABS: BILIRUBIN,URINE NEGATIVE (NEGATIVE)
[2017-04-27 11:43] LABS: UA CHARGE (STRIP ONLY) YES; UR CULTURE IF IND NOT INDICATED
[2017-04-27] MEDS ORDERED: IOPAMIDOL-300 100 ML VIAL ONE (11:46)
[2017-04-27] MEDS ORDERED: IOPAMIDOL-300 100 ML VIAL IVP ONE (12:25)
--- NOTE | 2017-04-27 12:49 | CT Preliminary Report ---
Exam: CT ABDOMEN/PELVIS W/ IMPRESSION: 1. 7 mm proximal transverse colon wall thickening with mild adjacent soft tissue stranding is suspect ed on series 3, image 42. Possible colitis. Consider follow-up with gastroenterology. 2. Small amount of free fluid within the pelvis and right paracolic gutter. No free intraperitoneal a ir. [facility] SITE ID: [id number]
--- NOTE | 2017-04-27 12:52 | CT Report ---
EXAM: CT ABDOMEN AND PELVIS EXAM DATE: 04/27/2017 12:10 PM. CLINICAL HISTORY: Epigastric pain, severe. COMPARISONS: Abdominal pelvic CT 04/03/2017. TECHNIQUE: Routine helical CT imaging was performed through the abdomen and pelvis. IV contrast: 100 cc Isovue-300. Enteric contrast: No. Reconstructions: Coronal and sagittal. In accordance with CT protocol optimization, one or more of the following dose reduction techniques w ere utilized for this exam: automated exposure control, adjustment of mA and/or KV based on patient s ize, or use of iterative reconstructive technique. FINDINGS: Lung Bases: Unremarkable. Liver: Normal. No masses. Gallbladder/Bile Ducts: Unremarkable. Spleen: Normal. Pancreas: Normal. Adrenal Glands: Normal. Kidneys: Normal. No masses or hydronephrosis. Peritoneal Cavity/Bowel: 7 mm proximal transverse colon wall thickening with mild adjacent soft tiss ue stranding is suspected on series 3, image 42. No dilated bowel. Small amount of fluid in right paracolic gutter. Appendix is not identified. There are fluid-filled and collapsed small bowel loops in right lower quadrant. Pelvic Organs: Small amount of free fluid. The bladder and visualized pelvic organs are within normal limits. Vasculature: No aneurysms or other significant abnormality. Probable mixing of unopacified blood with in superior mesenteric vein. No portal vein thrombosis evident. Majority of IVC is unopacified. Bones: Right femur intramedullary jacquelyn with intertrochanteric locking screw. Other: None. IMPRESSION: 1. 7 mm proximal transverse colon wall thickening with mild adjacent soft tissue stranding is suspect ed on series 3, image 42. Possible colitis. Consider follow-up with gastroenterology. 2. Small amount of free fluid within the pelvis and right paracolic gutter. No free intraperitoneal a ir. [facility] Referring Provider Line: [phone] SITE ID: [id number]
[2017-04-27] MEDS ORDERED: ACETAMINOPHEN 325 MG TABLET PO PRN (14:57)
--- NOTE | 2017-04-27 15:09 | HISTORY & PHYSICAL EXAMINATION ---
Chief Complaint - Chief Complaint Chief Complaint: abdominal pain History of Present Illness - Admitted From Admitted From:: ER - History Obtained From History obtained from: pt - History of Present Illness HPI Comment/Other: This is a 36-year-old male with a past medical history significance for intermittent epigastric abdominal pain, chronic pancreatitis, and remote alcoholic pancreatitis in the past, who present ER for evaluation of abdominal pain. Patient visited this ER about one month ago, and he had several other visits for the similar problem, intermittent epigastric abdominal pain. Patient report the pain start on yesterday, pain locates at periumbilical area. Patient denies alcohol intake recently. Patient report he had some nausea but no vomiting. Patient denies diarrhea or blood stool. Patient report he still smokes cigarette, sometimes he smokes Marijuana as well for his nausea. Patient denies chest pain, headache, dysuria, vision issue. Lipase in the test is 88. CT of the abdomen and pelvis reveals 7 mm proximal transverse colon wall thickening with mild adjacent soft tissue stranding, possible colitis. has been consulted in the ER, he was of the impression, the colon inflammation is the result of its proximity to the pancreas, and pt is admitted for doing a colonscopy History - Past Medical History Cardiovascular: reports: None Respiratory: reports: None Neuro: reports: None Endocrine/Autoimmune: reports: None GI: reports: Pancreatitis : reports: None HEENT: reports: None Psych: reports: None Musculoskeletal: reports: None Derm: reports: None MRSA Hx?: No - Past Surgical History Ortho: reports: Other - Family & Social History Family History: Mother: Cancer (pancreat cancer), Father: Alive and Well Family History Comment/Other: pt report he is single, jobless, living at his parents house. Living arrangement: At home Living Situation: Alone - Substance History Use: Uses substance without health or social issues: Tobacco, Cannabis Abuse: Recurrent use of substance despite neg consequences: NONE - POLST Patient has POLST: No POLST Status: Full Code Meds/Allgy - Home Medications Home Medications: Ambulatory Orders Medication Instructions Recorded Confirmed Omeprazole [PriLOSEC] 20 mg PO DAILY 04/23/17 04/27/17 Ondansetron Odt [Zofran] 4 mg TL Q6H PRN #15 tablet 04/23/17 04/27/17 Oxycodone HCl/Acetaminophen 1 tab PO Q8H PRN 04/27/17 04/27/17 [Oxycodon-Acetaminophen 7.5-325] Prochlorperazine Maleate 10 mg PO Q12H PRN 04/27/17 04/27/17 Promethazine [Phenergan] 25 - 50 mg PO Q6H PRN 04/27/17 04/27/17 - Allergies Allergies/Adverse Reactions: Allergies Allergy/AdvReac Type Severity Reaction Status Date / Time No Known Drug Allergies Allergy Verified 05/18/15 06:22 Review of Systems - Constitutional Constitutional: denies: Fatigue, Fever, Chills, Malaise, Weakness, Poor appetite , Diaphoresis, Night sweats, Weight gain, Weight loss - Eyes Eyes: denies: Pain, Irritation, Amaurosis, Blurred vision, Spots in vision, Field loss, Vision loss, Dipolpia - Ears, Nose & Throat Ears, Nose & Throat: denies: Ear pain, Hearing loss, Hearing aids, Tinnitus, Vertigo, Nasal pain, Nosebleeds, Sore throat, Bleeding gums - Cardiovascular Cariovascular: denies: Irregular heart rate, Palpitations, Chest pain, Edema, Lightheadedness, Syncope, Exertional dyspnea, Decr. exercise tolerance - Respiratory Respiratory: denies: Cough, Sputum production, Wheezing, Snoring, Hemoptysis, Orthopnea, SOB at rest, SOB with exertion - Gastrointestinal Gastrointestinal: reports: Abdominal pain, Nausea. denies: Abdominal distention , Constipation, Diarrhea, Change in bowel habits, Rectal bleeding, Black stools , Bloody stools, Vomiting, Jan blood emesis, Coffee grounds emesis, Reflux/ heartburn, Poor appetite - Genitourinary Genitourinary: denies: Dysuria, Frequency, Urgency, Hematuria, Incontinence, Flank pain, Nocturia, Urethral discharge - Musculoskeletal Musculoskeletal: denies: Muscle pain, Back pain, Muscle aches, Stiffness, Muscle weakness, Gout, Joint pain, Joint swelling - Integumentary Integumentary: denies: Rash, Lesions, Dryness, Acne, Pigment changes - Neurological Neurological: denies: General weakness, Focal weakness, Headache, Dizziness, Numbness, Memory problems, Pre-existing deficit, Abnormal gait, Seizures, Incoordination, Slurred speech - Psychiatric Psychiatric: denies: Depression, Anxiety, Suicidal, Delusions, Hallucinations, Homicidal - Endocrine Endocrine: denies: Polyuria, Polydypsia, Polyphagia, Intolerance to cold, Intolerance to heat - Hematologic/Lymphatic Hematologic/Lymphatic: denies: Anemia, Bruising, Petechiae, Blood clots, Lymphadenopathy, Bleeding tendencies, Recurrent infections Exam - Vital Signs Reviewed Vital Signs: Yes Vital Signs: Vital Signs x48h Temp Pulse Resp BP Pulse Ox 04/27/17 14:35 36.5 C 75 15 127/76 98 04/27/17 13:10 48 L 20 118/68 98 04/27/17 11:49 50 L 18 141/78 H 100 04/27/17 10:07 36.5 C 50 L 16 209/119 H 100 04/27/17 08:42 36.1 C L 47 L 18 197/98 H 100 - Physical Exam General Appearance: positive: No acute distress, Alert. negative: Lethargic Eyes Bilateral: positive: Normal inspection, PERRL, No lid inflammation, Conjunctivae nml ENT: positive: ENT inspection nml, Pharynx nml, No signs of dehydration. negative: Purulent nasal drainage, Pharyngeal erythema, Oral lesions Neck: positive: Nml inspection, Thyroid nml, No JVD, Trachea midline. negative : Thyromegaly, Lymphadenopathy (R), Lymphadenopathy (L), Stiff neck, Carotid bruit, Swelling/bruising, Tracheal deviation Respiratory: positive: Chest non-tender, No respiratory distress, Breath sounds nml. negative: Wheezes, Rales, Rhonchi Cardiovascular: positive: Regular rate & rhythm, No murmur, No gallop. negative : Irregularly irregular, Extrasystoles, Tachycardia, Bradycardia, Systolic murmur, Diastolic murmur Peripheral Pulses: positive: 2+ Abdomen: positive: Non-tender, No organomegaly, Nml bowel sounds, No distention. negative: Tenderness, Guarding, Rebound Back: positive: Nml inspection. negative: CVA tenderness (R), CVA tenderness (L ) Skin: positive: Color nml, No rash, Warm, Dry. negative: Cyanosis, Diaphoresis , Pallor, Skin rash Extremities: positive: Non-tender, Full ROM, Nml appearance. negative: Calf tenderness, Rachell's sign/cords Neurologic/Psychiatric: positive: Oriented x3, Motor nml, Sensation nml, Mood/ affect nml. negative: Weakness, Sensory loss, Facial droop, Slurred/abnml speech, Depressed mood/affect Conclusion/Plan - Problem List (1) Acute on chronic pancreatitis Conclusion/Plan: unknown etiology, remote alcoholic pancreatitis IVF NS NPO daily lab, and Lipase test, vital monitor Lipid panel test pain control (2) Colon wall thickening Conclusion/Plan: surgeon was consulted, plan to do colonoscopy NPO IVF NS will follow up after procedure (3) Currently smokes tobacco Conclusion/Plan: consult and advise pt quit smoking Nicotin Patch (4) Nausea Conclusion/Plan: Zofran and Phenergin PRN support as comfortable needed (5) DVT prophylaxis Conclusion/Plan: SCD, pt is without mobility limitation. - Lab Results Fish Bones: 04/28/17 05:22 04/28/17 05:22 Issues/Core Measures - Anticipated LOS Anticipated Stay Length: Less than 2 midnights (less than 2 midnight expected)
--- NOTE | 2017-04-27 15:28 | CONSULTATION NOTE ---
DATE OF CONSULTATION: 04/27/2017 00:00:00 REQUESTING PROVIDER: Ag Morton MD, emergency room. REASON FOR CONSULTATION: Abdominal pain, along with thickened transverse colon on CT scan of the abdo men and pelvis. HISTORY OF PRESENT ILLNESS: The patient is a 36-year-old male who has had at least a 10-year history of intermittent epigastric abdominal pain. He has been diagnosed with alcoholic pancreatitis in the p ast. He has had several visits to the emergency room and been admitted to the hospital for this, with the last being a month ago. He now presents with this recurrent epigastric and periumbilical pain th at started yesterday. He has had some nausea but no emesis. He felt constipated but had several bowel movements today. He has not seen any blood in his stool. Because of the continued abdominal pain, he came to the emergency room to be evaluated. He had a CT scan of the abdomen and pelvis, which showed in his proximal transverse colon some thicke fernie with mild adjacent soft tissue stranding. No other abnormalities other than a small amount of pe lvis was identified. PAST SURGICAL HISTORY: Femur surgery for trauma. HABITS: The patient has quit alcohol use. He does smoke less than a pack a day. He uses marijuana. ALLERGIES TO MEDICATIONS: NONE. MEDICATIONS: None. MEDICAL PROBLEMS: Narcolepsy. SOCIAL HISTORY: The patient is single. FAMILY HISTORY: Grandmother with history of pancreatic cancer. REVIEW OF SYSTEMS GASTROINTESTINAL: Nausea and abdominal pain and mild constipation. A 12-point review of systems obtained, with pertinent positives discussed and all others being negati ve. PHYSICAL EXAMINATION VITAL SIGNS: Temperature is 36.5, heart rate 50, blood pressure is 141/78. GENERAL: The patient is lying in bed. He is in minimal discomfort from his abdominal pain despite hav ing been given IV narcotics. HEENT: Eyes nonicteric. NECK: No lymphadenopathy. HEART: Regular. LUNGS: Clear. BACK: Nontender. ABDOMEN: Soft. Mild epigastric tenderness. No masses. No hernias. EXTREMITIES: No edema or cyanosis. NEUROLOGIC: The patient appears to be neurologically intact without any deficits. PSYCHOLOGIC: The patient is coherent, cooperative and appears to answer questions fully. LABORATORY DATA: Lipase is 88. Liver function tests are normal. White blood cell count is 7.4, hemogl obin 14.6. CT scan of the abdomen and pelvis: See History of Present Illness. ASSESSMENT 1. Recurrent pancreatitis of unknown etiology. He has used alcohol in the past but has abstained for at least a year now. I would recommend a repeat ultrasound of his abdomen since the last one was done 7 years ago, which was normal. This will rule out biliary tract disease. I would recommend other jose francisco ropriate labs to rule out hypertriglyceridemia, autoimmune pancreatitis, et cetera. I have discussed that he be best referred to a evening anchor once he has improved in order to rule out other caus es of pancreatitis. If none is found, then consideration of doing a laparoscopic cholecystectomy even without gallstones as this is still possible to be causing his recurrent pancreatitis. I would recom mend the patient be admitted to the hospitalist for pain control along with management of his pancrea titis. CT scan does not show any evidence of pancreatitis; however, his lipase is elevated. 2. Transverse colon thickening of unknown etiology. I suspect that this is related to his chronic irr itation from his pancreas and not some pathology, as he is not having any diarrhea or blood in his st ool, et cetera. However, in order to be fully sure that there is nothing abnormal in the colon that i s causing his problem, then I would recommend a colonoscopy be performed. There are no diverticula se en on the CT scan, and it is very unusual, although not unheard of, of having diverticulitis, which w ould be a relative contraindication for a colonoscopy. I do not favor diagnosis of diverticulitis at this time, and therefore we will proceed with a colonoscopy. The risks and possible complications of the procedure have been explained to him. He accepts the risks and wishes to proceed. He will undergo a bowel prep for the procedure. JOB #: [id number] EXT JOB #:[id number]
[2017-04-27] MEDS: SODIUM CHLORIDE 0.9% 1,000 ML IV SCH ×2 (16:23→22:58)
[2017-04-27] MEDS: SODIUM CHLORIDE FLUSH 0.9% 10 ML SYRINGE IVP PRN (16:24)
[2017-04-27] MEDS: MORPHINE 2 MG/ML SYRINGE IVP PRN ×2 (16:24→21:06)
[2017-04-27] MEDS: ONDANSETRON 4 MG/2 ML VIAL IVP PRN (17:31)
[2017-04-27] MEDS: HYDROcod/ACETAM 5/325 MG TABLET PO PRN (18:02)
[2017-04-27] MEDS: NICOTINE 21 MG PATCH TOP SCH (19:01)
--- NOTE | 2017-04-27 20:25 | Ultrasound Preliminary Report ---
Exam: US ABDOMEN LIMITED IMPRESSION: Normal. No cholelithiasis or cholecystitis. [facility] SITE ID: [id number]
--- NOTE | 2017-04-27 20:28 | Ultrasound Report ---
EXAM: ABDOMEN ULTRASOUND LIMITED, RUQ EXAM DATE: 04/27/2017 05:34 PM. CLINICAL HISTORY: Ultrasound of gallbladder recurrent pancreatitis. COMPARISON: None. TECHNIQUE: Real-time scanning was performed with static images obtained. FINDINGS: Liver: Normal in size and echotexture. 14.8 cm. Main portal vein flow: Hepatopetal. Gallbladder: Normal. No stones, wall thickening, or sonographic Walter's sign. Biliary System: CBD measures 1.6 mm. No intrahepatic or extrahepatic ductal dilatation. Other: Right kidney measures 10.3 x 4.5 x 5.1 cm without hydronephrosis. Abdominal aorta is normal in caliber. IMPRESSION: Normal. No cholelithiasis or cholecystitis. [facility] Referring Provider Line: [phone] SITE ID: [id number]
[2017-04-27] MEDS: SODIUM CHLORIDE FLUSH 0.9% 10 ML SYRINGE IVP SCH (22:04)
[2017-04-28] MEDS: HYDROcod/ACETAM 5/325 MG TABLET PO PRN (00:41)
[2017-04-28] MEDS: SODIUM CHLORIDE FLUSH 0.9% 10 ML SYRINGE IVP SCH ×3 (05:16→20:47)
[2017-04-28] MEDS: SODIUM CHLORIDE 0.9% 1,000 ML IV SCH ×3 (05:38→22:02)
[2017-04-28] MEDS: SODIUM/POTASSIUM/MAG SULFATES 354 ML PREP KIT PO SCH ×2 (05:39→13:43)
[2017-04-28 06:03] LABS: BASOPHILS % (AUTO) 0.8 %; EOSINOPHILS # (AUTO) 0.2 10^3/uL (0.0-0.7); EOSINOPHILS % (AUTO) 3.8 %; HCT - HEMATOCRIT 39.8 % (42.0-52.0); HGB - HEMOGLOBIN 13.1 g/dL (14.0-18.0); LYMPHOCYTES # (AUTO) 2.7 10^3/uL (1.5-3.5); MEAN CORPUSCULAR HEMOGLOBIN 26.6 pg (27.0-31.0); MEAN CORPUSCULAR VOLUME 80.7 fL (80.0-94.0); MEAN PLATELET VOLUME 8.1 fL (7.4-11.4); MONOCYTES # (AUTO) 0.6 10^3/uL (0.0-1.0); MONOCYTES % (AUTO) 10.1 %; NEUTROPHILS # (AUTO) 2.7 10^3/uL (1.5-6.6); NEUTROPHILS % (AUTO) 42.3 %; NUCLEATED RED BLOOD CELLS AUTO 0.1 /100WBC; RED BLOOD COUNT 4.93 10^6/uL (4.70-6.10); RED CELL DISTRIBUTION WIDTH 14.1 % (12.0-15.0); UNCORRECTED WHITE BLOOD COUNT 6.3 x10^3/uL; WHITE BLOOD COUNT 6.3 x10^3/uL (4.8-10.8)
[2017-04-28 06:05] LABS: ALBUMIN/GLOBULIN RATIO 1.5 (1.0-2.2); BILIRUBIN,TOTAL 0.7 mg/dL (0.2-1.0); CALCIUM 8.6 mg/dL (8.5-10.3); CREATININE 0.9 mg/dL (0.6-1.2); POTASSIUM 3.8 mmol/L (3.5-5.0); TOTAL PROTEIN 6.2 g/dL (6.7-8.2)
[2017-04-28] MEDS: MORPHINE 2 MG/ML SYRINGE IVP PRN ×5 (06:11→20:47)
[2017-04-28] MEDS: ONDANSETRON 4 MG/2 ML VIAL IVP PRN ×3 (06:11→23:13)
[2017-04-28] MEDS: PROCHLORPERAZINE 10 MG/2 ML VIAL IVP PRN ×2 (06:40→20:46)
[2017-04-28] MEDS: SODIUM CHLORIDE FLUSH 0.9% 10 ML SYRINGE IVP PRN ×6 (06:55→20:08)
[2017-04-28] MEDS: POLYETHYLENE GLYCOL 3350 17 GM PACKET PO SCH (08:08)
[2017-04-28] MEDS ORDERED: HYDROmorphone 1 MG/ML AMP IVP PRN (09:16)
[2017-04-28] MEDS: PROMETHAZINE INJ 12.5 MG in SODIUM CHLORIDE 0.9% 50 ML IV PRN ×2 (09:22→16:32)
[2017-04-28] MEDS ORDERED: SODIUM CHLORIDE 0.9% 50 ML IV ONE (09:24)
[2017-04-28] MEDS: FAMOTIDINE 20 MG TABLET PO SCH (09:29)
[2017-04-28] MEDS: NICOTINE 21 MG PATCH TOP SCH (09:30)
--- NOTE | 2017-04-28 13:34 | Discharge Plan ---
Discharge Plan Disposition: 01 Home, Self Care Condition: Stable No Smoking: If you smoke, Please STOP! Call for help. Follow-up with: Maximiliano Figueroa MD [Primary Care Provider] -
[2017-04-28] MEDS ORDERED: HYDROmorphone 0.5 MG/0.5 ML SYRINGE IVP PRN (14:33)
[2017-04-28] MEDS ORDERED: LORazepam 2 MG/ML SYRINGE IVP SCH (17:25)
[2017-04-28] MEDS: METOCLOPRAMIDE 10 MG/2 ML VIAL IVP PRN (17:40)
[2017-04-28] MEDS ORDERED: SODIUM/POTASSIUM/MAG SULFATES 354 ML PREP KIT PO SCH (18:00)
[2017-04-28] MEDS ORDERED: PEG 3350/NA SULF,BICARB,CL/KCL 4,000 ML BOTTLE PO SCH (18:00)
--- NOTE | 2017-04-28 18:01 | PROVIDER PROGRESS NOTE ---
Subjective - Prog Note Date Prog Note Date: 04/28/17 - Subjective Pt reports feeling: Improved Subjective: pt state he still has some pain, ask more pain medications. I explained to pt our pharmacy is short of dilaudid now. I advise pt how to manage the pain. Patient came to our ER for 7 times in 2017, complained of abdominal pain, and seek for pain medication. Current Medications - Current Medications Current Medications: Active Medications Acetaminophen (Tylenol) 650 mg PO Q4HR PRN PRN Reason: Pain 1 to 4 Acetaminophen/Hydrocodone Bitart ([place] 5/325) 1 tab PO Q6H PRN PRN Reason: PAIN Last Admin: 04/28/17 00:41 Dose: 1 tab Amlodipine Besylate (Norvasc) 5 mg PO ONCE SCOTT Stop: 04/28/17 23:59 Famotidine (Pepcid) 20 mg PO DAILY SCOTT Last Admin: 04/28/17 09:29 Dose: Not Given Sodium Chloride (Normal Saline 0.9%) 1,000 mls @ 150 mls/hr IV .Q6H40M SCOTT Last Admin: 04/28/17 14:44 Dose: 150 mls/hr Promethazine HCl 12.5 mg/ (Sodium Chloride) 50.5 mls @ 100 mls/hr IV Q6H PRN PRN Reason: Nausea / Vomiting Last Infusion: 04/28/17 17:44 Dose: Infused Metoclopramide HCl (Reglan Inj) 10 mg IVP Q6HR PRN PRN Reason: Nausea / Vomiting Last Admin: 04/28/17 17:40 Dose: 10 mg Morphine Sulfate (Morphine) 2 mg IVP Q2H PRN PRN Reason: PAIN Last Admin: 04/28/17 20:47 Dose: 2 mg Nicotine (Nicoderm) 1 patch TOP DAILY SCOTT Last Admin: 04/28/17 09:30 Dose: Not Given Ondansetron HCl (Zofran Inj) 4 mg IVP Q6HR PRN PRN Reason: Nausea / Vomiting Last Admin: 04/28/17 13:43 Dose: 4 mg Polyethylene Glycol (Miralax) 17 gm PO DAILY SCOTT Last Admin: 04/28/17 08:08 Dose: Not Given Polyethylene Glycol/Electrolytes (Golytely) 4,000 ml PO ONCE SCOTT Stop: 04/28/17 23:00 Last Admin: 04/28/17 21:38 Dose: 4,000 bottle Prochlorperazine Edisylate (Compazine Inj) 10 mg IVP Q6HR PRN PRN Reason: Nausea / Vomiting Last Admin: 04/28/17 20:46 Dose: 10 mg Sodium Chloride (Normal Saline Flush 0.9%) 10 ml IVP PRN PRN PRN Reason: NEEDED PER PROVIDER ORDERS Last Admin: 04/28/17 20:08 Dose: 10 ml Sodium Chloride (Normal Saline Flush 0.9%) 10 ml IVP Q8HR SCOTT Last Admin: 04/28/17 20:47 Dose: 10 ml Omeprazole [PriLOSEC] 20 mg PO DAILY 04/23/17 Oxycodone HCl/Acetaminophen [Oxycodon-Acetaminophen 7.5-325] 1 tab PO Q8H PRN Prochlorperazine Maleate 10 mg PO Q12H PRN 04/27/17 Promethazine [Phenergan] 25 - 50 mg PO Q6H PRN 04/27/17 Objective - Vital Signs/Intake & Output Reviewed Vital Signs: Yes Vital Signs: Vital Signs x48h Temp Pulse Resp BP Pulse Ox 04/28/17 15:53 37.1 C 53 L 17 186/95 H 98 04/28/17 13:00 36.4 C L 42 L 16 135/77 H 100 Intake & Output: Intake & Output 04/25/17 04/26/17 04/27/17 04/28/17 23:59 23:59 23:59 23:59 Intake Total 2059.0 2027.5 Balance 2059.0 2027.5 - Objective General Appearance: positive: No acute distress, Alert. negative: Lethargic Eyes Bilateral: positive: Normal inspection, PERRL, EOMI, No lid inflammation, Conjunctivae nml ENT: positive: ENT inspection nml, Pharynx nml, No signs of dehydration. negative: Purulent nasal drainage, Pharyngeal erythema, Oral lesions Neck: positive: Nml inspection, Thyroid nml, Trachea midline. negative: Thyromegaly, Lymphadenopathy (R), Lymphadenopathy (L), Stiff neck, Carotid bruit , Swelling/bruising, Tracheal deviation Respiratory: positive: Chest non-tender, No respiratory distress, Breath sounds nml. negative: Wheezes, Rales, Rhonchi Cardiovascular: positive: Regular rate & rhythm, No murmur, No gallop. negative : Irregularly irregular, Extrasystoles, Tachycardia, Bradycardia, Systolic murmur, Diastolic murmur Peripheral Pulses: 2+ Radial (R), 2+ Radial (L), 2+ Dorsalis pedis (R), 2+ Dorsalis pedis (L) Abdomen: positive: Non-tender, Nml bowel sounds, No distention. negative: Tenderness, Guarding, Rebound Back: positive: Nml inspection. negative: CVA tenderness (R), CVA tenderness (L ) Skin: positive: Color nml, No rash, Warm, Dry. negative: Cyanosis, Diaphoresis , Pallor, Skin rash Extremities: positive: Non-tender, Full ROM, Nml appearance. negative: Calf tenderness, Rachell's sign/cords Neurologic/Psychiatric: positive: Oriented x3, Motor nml, Sensation nml, Mood/ affect nml. negative: Sensory loss, Facial droop, Slurred/abnml speech, Depressed mood/affect - Lab Results Fish Bones: 04/28/17 05:22 04/28/17 05:22 Other Labs: Lab Results x24hrs 04/28/17 04/28/17 Range/Units 05:22 05:22 WBC 6.3 (4.8-10.8) x10^3/uL RBC 4.93 (4.70-6.10) 10^6/uL Hgb 13.1 L (14.0-18.0) g/dL Hct 39.8 L (42.0-52.0) % MCV 80.7 (80.0-94.0) fL MCH 26.6 L (27.0-31.0) pg MCHC 33.0 (32.0-36.0) g/dL RDW 14.1 (12.0-15.0) % Plt Count 235 (130-450) 10^3/uL MPV 8.1 (7.4-11.4) fL Neut # 2.7 (1.5-6.6) 10^3/uL Lymph # 2.7 (1.5-3.5) 10^3/uL [place] # 0.6 (0.0-1.0) 10^3/uL Eos # 0.2 (0.0-0.7) 10^3/uL Baso # 0.0 (0.0-0.1) 10^3/uL Absolute Nucleated RBC 0.01 x10^3/uL Nucleated RBC % 0.1 /100WBC Sodium 140 (135-145) mmol/L Potassium 3.8 (3.5-5.0) mmol/L Chloride 107 (101-111) mmol/L Carbon Dioxide 25 (21-32) mmol/L Anion Gap 8.0 (6-13) BUN 11 (6-20) mg/dL Creatinine 0.9 (0.6-1.2) mg/dL Estimated GFR (MDRD) 116 (>89) Glucose 94 (70-100) mg/dL Calcium 8.6 (8.5-10.3) mg/dL Magnesium 2.0 (1.7-2.8) mg/dL Total Bilirubin 0.7 (0.2-1.0) mg/dL AST 23 (10-42) IU/L ALT 27 (10-60) IU/L Alkaline Phosphatase 58 (42-121) IU/L Total Protein 6.2 L (6.7-8.2) g/dL Albumin 3.7 (3.2-5.5) g/dL Globulin 2.5 (2.1-4.2) g/dL Albumin/Globulin Ratio 1.5 (1.0-2.2) Lipase 30 (22-51) U/L Assessment/Plan - Problem List (1) Acute on chronic pancreatitis Impression: (1) Acute on chronic pancreatitis Conclusion/Plan: Lipase is down to the normal. pt still complains of pain, and ask for more pain medication. advise pt how to manage the pain continue IVF NS continue NPO until procedure done by surgeon unknown etiology, remote alcoholic pancreatitis IVF NS NPO daily lab, and Lipase test, vital monitor Lipid panel test pain control (2) Colon wall thickening Conclusion/Plan: Pt could not follow up surgeon' recommended procedure preparation, so pt did not finish the procedure. Pt complains of pain. pt has Morphin 2mg Q2H, and with [place] PRN. will follow up surgeon, to finish the procedure to pt surgeon was consulted, plan to do colonoscopy NPO IVF NS will follow up after procedure (3) Currently smokes tobacco Conclusion/Plan: consult and advise pt quit smoking Nicotin Patch (4) Nausea Conclusion/Plan: add companzin to pt PRN Zofran and Phenergin PRN support as comfortable needed
[2017-04-28] MEDS ORDERED: LIDOCAINE JELLY 2% 5 ML TUBE TOP ONE (19:25)
[2017-04-28] MEDS ORDERED: amLODIPine 5 MG TABLET PO SCH (21:00)
--- NOTE | 2017-04-28 21:23 | XRAY Preliminary Report ---
Exam: XR ABDOMEN 1 VIEW IMPRESSION: Tip of the nasogastric tube in the proximal body of the stomach. RAD[facility] SITE ID: [id number]
--- NOTE | 2017-04-28 21:25 | XRAY Report ---
EXAM: ABDOMEN RADIOGRAPHY EXAM DATE: 04/28/2017 08:09 PM. CLINICAL HISTORY: Ngt placement check. COMPARISON: Chest abdomen 03/28/2010. TECHNIQUE: 1 view. FINDINGS: Bowel Gas Pattern: Within normal limits. No dilated loops. Other: Tip of the nasogastric tube in the proximal body of the stomach. IMPRESSION: Tip of the nasogastric tube in the proximal body of the stomach. YUNG Referring Provider Line: [phone] SITE ID: [id number]
[2017-04-28] MEDS ORDERED: hydrALAZINE INJ 20 MG/ML VIAL IVP SCH ×2 (23:17→23:27)
[2017-04-28] MEDS ORDERED: NITROGLYCERIN 2% PASTE TOP SCH (23:45)
[2017-04-29] MEDS: D5.45NS W/20 MEQ KCL 1,000 ML IV SCH ×2 (00:23→18:37)
--- NOTE | 2017-04-29 00:30 | PROVIDER PROGRESS NOTE ---
Rn Picu Note - Rn Picu Note Rn Picu Note: Patient's BP was rising all night, RN brought to my attention. Chart reviewed. P as high as 200/100 for several hours. Pt not in pain. No suggestion of EtOH withdrawal with no tachycardia. Amlodipine 5 mg po x 1 given with no significant efect after 2 hours. EKG was ordered and showed sinus maribel, rate 57, LVH voltage and u waves present (consider electrolyte abnormality). Hydralazine 10 mg iv x1 and NTP 1" top q8h ordered. iv NS at 125 cc/hr was changed to D5 1/2 NS w/ 20 Meq KCl at 83 cc/hr, to decrease salt load. Plan: will also order Echo to evaluate for LVH and IHSS. Labs ordered for am
[2017-04-29] MEDS: MORPHINE 2 MG/ML SYRINGE IVP PRN ×6 (02:43→20:16)
[2017-04-29] MEDS: SODIUM CHLORIDE FLUSH 0.9% 10 ML SYRINGE IVP SCH ×3 (04:20→23:25)
[2017-04-29] MEDS: ONDANSETRON 4 MG/2 ML VIAL IVP PRN (04:49)
[2017-04-29 06:01] LABS: BASOPHILS % (AUTO) 0.4 %; LYMPHOCYTES # (AUTO) 1.6 10^3/uL (1.5-3.5); LYMPHOCYTES % (AUTO) 12.5 %; MEAN CORPUSCULAR HEMOGLOBIN 26.1 pg (27.0-31.0); MEAN CORPUSCULAR HGB CONC 32.6 g/dL (32.0-36.0); MEAN CORPUSCULAR VOLUME 80.1 fL (80.0-94.0); MEAN PLATELET VOLUME 7.9 fL (7.4-11.4); MONOCYTES # (AUTO) 0.9 10^3/uL (0.0-1.0); MONOCYTES % (AUTO) 7.3 %; NEUTROPHILS # (AUTO) 10.3 10^3/uL (1.5-6.6); NEUTROPHILS % (AUTO) 79.8 %; RED BLOOD COUNT 5.74 10^6/uL (4.70-6.10); RED CELL DISTRIBUTION WIDTH 14.2 % (12.0-15.0); UNCORRECTED WHITE BLOOD COUNT 12.9 x10^3/uL; WHITE BLOOD COUNT 12.9 x10^3/uL (4.8-10.8)
[2017-04-29 06:14] LABS: ALBUMIN/GLOBULIN RATIO 1.5 (1.0-2.2); BILIRUBIN,TOTAL 0.8 mg/dL (0.2-1.0); CALCIUM 9.3 mg/dL (8.5-10.3); CREATININE 0.8 mg/dL (0.6-1.2); POTASSIUM 3.3 mmol/L (3.5-5.0); TOTAL PROTEIN 7.6 g/dL (6.7-8.2)
[2017-04-29 06:34] LABS: CHOL/HDL RATIO 3.4 (<5.0); CHOLESTEROL 151 mg/dL; HDL CHOLESTEROL 45 mg/dL; LDL/HDL RATIO 2.1 (<3.6); TRIGLYCERIDES 56 mg/dL; VLDL CHOLESTEROL 11 mg/dL
[2017-04-29] MEDS ORDERED: cloNIDine 0.1 MG TABLET PO PRN (07:41)
[2017-04-29] MEDS ORDERED: metroNIDAZOLE 500 MG/100 ML 500 MG/100 ML BAG IV SCH (08:00)
[2017-04-29] MEDS ORDERED: NITROGLYCERIN 2% PASTE TOP PRN (08:38)
[2017-04-29] MEDS: FAMOTIDINE 20 MG TABLET PO SCH (09:02)
[2017-04-29] MEDS: NICOTINE 21 MG PATCH TOP SCH (09:03)
[2017-04-29] MEDS: POLYETHYLENE GLYCOL 3350 17 GM PACKET PO SCH (09:04)
[2017-04-29] MEDS: POTASSIUM CHLOR 10 MEQ/100 ML 10 MEQ/100 ML BAG IV SCH ×2 (10:03→11:12)
[2017-04-29] MEDS: SODIUM CHLORIDE FLUSH 0.9% 10 ML SYRINGE IVP PRN ×2 (10:08→12:45)
[2017-04-29] MEDS ORDERED: hydrALAZINE INJ 20 MG/ML VIAL IVP PRN (14:50)
--- NOTE | 2017-04-29 15:15 | CONSULTATION NOTE ---
DATE OF CONSULTATION: PRIMARY CARE PROVIDER: SURESH Baer. REASON FOR CONSULTATION: Abdominal pain. HISTORY OF PRESENT ILLNESS: The patient is a 36-year-old male who has recurrent abdominal pain. He paris s been admitted multiple times, most recently a month ago for recurrent pancreatitis of unknown etiol ogy. This has been going on for at least 10 years. He was medically watched and was discharged home. He has had ultrasounds many years ago, which did not reveal any abnormalities. As far as we know, he has not had workup by a residential worker. He had mild elevation of lipase at 53. He had a CT scan o f the abdomen and pelvis, which showed some thickening of the transverse colon with some stranding. B ecause of this, a surgery consult was obtained. INCOMPLETE DICTATION, DICTATION ENDS. JOB #: [id number] EXT JOB #:[id number]
[2017-04-29] MEDS ORDERED: LIDOCAINE-MPF 2% 5 ML VIAL IM ONE (16:30)
[2017-04-29] MEDS ORDERED: PROPOFOL 200 MG/20 ML VIAL IVP ONE (16:30)
[2017-04-29] MEDS ORDERED: LACTATED RINGERS 1,000 ML IV ONE (16:53)
--- NOTE | 2017-04-29 17:11 | PROVIDER PROGRESS NOTE ---
Subjective - Prog Note Date Prog Note Date: 04/29/17 - Subjective Pt reports feeling: Improved Subjective: pt report his pain control is better, nausea and vomiting is in the good control. Pt will have EGD at this afternoon Current Medications - Current Medications Current Medications: Active Medications Acetaminophen (Tylenol) 650 mg PO Q4HR PRN PRN Reason: Pain 1 to 4 Acetaminophen/Hydrocodone Bitart ([place] 5/325) 1 tab PO Q6H PRN PRN Reason: PAIN Last Admin: 04/28/17 00:41 Dose: 1 tab Clonidine HCl (Catapres) 0.1 mg PO BID PRN PRN Reason: Hypertensive Emergency Last Admin: 04/29/17 12:43 Dose: 0.1 mg Hydralazine HCl (Apresoline Inj) 10 mg IVP TID PRN PRN Reason: Hypertensive Emergency Promethazine HCl 12.5 mg/ (Sodium Chloride) 50.5 mls @ 100 mls/hr IV Q6H PRN PRN Reason: Nausea / Vomiting Last Infusion: 04/28/17 17:44 Dose: Infused Potassium Chloride/Dextrose/Sod Cl (D5.45ns W/20 Meq Kcl) 1,000 mls @ 83.333 mls/hr IV .Q12H SCOTT Last Admin: 04/29/17 00:23 Dose: 83.333 mls/hr Metoclopramide HCl (Reglan Inj) 10 mg IVP Q6HR PRN PRN Reason: Nausea / Vomiting Last Admin: 04/28/17 17:40 Dose: 10 mg Morphine Sulfate (Morphine) 2 mg IVP Q2H PRN PRN Reason: PAIN Last Admin: 04/29/17 12:42 Dose: 2 mg Nicotine (Nicoderm) 1 patch TOP DAILY [facility] Last Admin: 04/29/17 09:03 Dose: Not Given Nitroglycerin (Nitro-Bid (Pkt)) 1 inch TOP Q8H PRN PRN Reason: Chest Pain Ondansetron HCl (Zofran Inj) 4 mg IVP Q6HR PRN PRN Reason: Nausea / Vomiting Last Admin: 04/29/17 04:49 Dose: 4 mg Pantoprazole Sodium (Protonix) 40 mg PO QDAC SCOTT Polyethylene Glycol (Miralax) 17 gm PO DAILY SCOTT Last Admin: 04/29/17 09:04 Dose: Not Given Prochlorperazine Edisylate (Compazine Inj) 10 mg IVP Q6HR PRN PRN Reason: Nausea / Vomiting Last Admin: 04/28/17 20:46 Dose: 10 mg Sodium Chloride (Normal Saline Flush 0.9%) 10 ml IVP PRN PRN PRN Reason: NEEDED PER PROVIDER ORDERS Last Admin: 04/29/17 12:45 Dose: 10 ml Sodium Chloride (Normal Saline Flush 0.9%) 10 ml IVP Q8HR SCOTT Last Admin: 04/29/17 14:27 Dose: Not Given Sucralfate (Carafate) 1 gm PO 0700,1100,1600,2200 SCOTT Omeprazole [PriLOSEC] 20 mg PO DAILY 04/23/17 Oxycodone HCl/Acetaminophen [Oxycodon-Acetaminophen 7.5-325] 1 tab PO Q8H PRN Prochlorperazine Maleate 10 mg PO Q12H PRN 04/27/17 Promethazine [Phenergan] 25 - 50 mg PO Q6H PRN 04/27/17 Objective - Vital Signs/Intake & Output Vital Signs: Vital Signs x48h Temp Pulse Resp BP BP Pulse Ox 04/29/17 17:05 100 04/29/17 17:00 100 04/29/17 16:55 100 04/29/17 16:52 100 04/29/17 16:46 100 04/29/17 16:40 96 04/29/17 16:34 99 04/29/17 14:56 37.1 C 49 L 102/53 L 04/29/17 12:37 37.3 C 56 L 18 191/96 H 99 Intake & Output: Intake & Output 04/26/17 04/27/17 04/28/17 04/29/17 23:59 23:59 23:59 23:59 Intake Total 2060.0 3728.5 545 Balance 2060.0 3728.5 545 - Objective General Appearance: positive: No acute distress, Alert. negative: Lethargic Eyes Bilateral: positive: Normal inspection, PERRL, EOMI, No lid inflammation, Conjunctivae nml ENT: positive: ENT inspection nml, Pharynx nml, No signs of dehydration. negative: Purulent nasal drainage, Pharyngeal erythema, Oral lesions Neck: positive: Nml inspection, Thyroid nml, No JVD, Trachea midline. negative : Thyromegaly, Lymphadenopathy (R), Lymphadenopathy (L), Stiff neck, Carotid bruit, Swelling/bruising, Tracheal deviation Respiratory: positive: Chest non-tender, No respiratory distress, Breath sounds nml. negative: Wheezes, Rales, Rhonchi Cardiovascular: positive: Regular rate & rhythm, No murmur, No gallop. negative : Irregularly irregular, Extrasystoles, Tachycardia, Bradycardia, Systolic murmur, Diastolic murmur Peripheral Pulses: 2+ Radial (R), 2+ Radial (L), 2+ Dorsalis pedis (R), 2+ Dorsalis pedis (L) Abdomen: positive: Non-tender, No organomegaly, Nml bowel sounds, No distention. negative: Tenderness, Guarding, Rebound Back: positive: Nml inspection. negative: CVA tenderness (R), CVA tenderness (L ) Skin: positive: Color nml, No rash, Warm, Dry. negative: Cyanosis, Diaphoresis , Pallor, Skin rash Extremities: positive: Non-tender, Full ROM, Nml appearance. negative: Pedal edema, Calf tenderness, Joint swelling, Rachell's sign/cords Neurologic/Psychiatric: positive: Oriented x3, Motor nml, Sensation nml, Mood/ affect nml. negative: Weakness, Sensory loss, Facial droop, Slurred/abnml speech, Depressed mood/affect - Lab Results Fish Bones: 04/29/17 05:36 04/29/17 05:36 Other Labs: Lab Results x24hrs 04/29/17 04/29/17 04/29/17 Range/Units 07:59 05:36 05:36 WBC (4.8-10.8) x10^3/uL RBC (4.70-6.10) 10^6/uL Hgb (14.0-18.0) g/dL Hct (42.0-52.0) % MCV (80.0-94.0) fL MCH (27.0-31.0) pg MCHC (32.0-36.0) g/dL RDW (12.0-15.0) % Plt Count (130-450) 10^3/uL MPV (7.4-11.4) fL Neut # (1.5-6.6) 10^3/uL Lymph # (1.5-3.5) 10^3/uL [place] # (0.0-1.0) 10^3/uL Eos # (0.0-0.7) 10^3/uL Baso # (0.0-0.1) 10^3/uL Absolute Nucleated RBC x10^3/uL Nucleated RBC % /100WBC Sodium 136 (135-145) mmol/L Potassium 3.3 L (3.5-5.0) mmol/L Chloride 98 L (101-111) mmol/L Carbon Dioxide 24 (21-32) mmol/L Anion Gap 14.0 H (6-13) BUN 9 (6-20) mg/dL Creatinine 0.8 (0.6-1.2) mg/dL Estimated GFR (MDRD) 133 (>89) Glucose 126 H (70-100) mg/dL Lactic Acid 1.1 (0.5-2.2) mmol/L Calcium 9.3 (8.5-10.3) mg/dL Total Bilirubin 0.8 (0.2-1.0) mg/dL AST 28 (10-42) IU/L ALT 40 (10-60) IU/L Alkaline Phosphatase 71 (42-121) IU/L Total Protein 7.6 (6.7-8.2) g/dL Albumin 4.5 (3.2-5.5) g/dL Globulin 3.1 (2.1-4.2) g/dL Albumin/Globulin Ratio 1.5 (1.0-2.2) Triglycerides 56 ( - 149) mg/dL Cholesterol 151 ( - 199) mg/dL LDL Cholesterol, Calc 95 ( - 129) mg/dL VLDL Cholesterol 11 mg/dL HDL Cholesterol 45 L (60 - ) mg/dL LDL/HDL Ratio 2.1 (<3.6) Cholesterol/HDL Ratio 3.4 (<5.0) Lipase 32 (22-51) U/L 04/29/17 Range/Units 05:36 WBC 12.9 H (4.8-10.8) x10^3/uL RBC 5.74 (4.70-6.10) 10^6/uL Hgb 15.0 (14.0-18.0) g/dL Hct 46.0 (42.0-52.0) % MCV 80.1 (80.0-94.0) fL MCH 26.1 L (27.0-31.0) pg MCHC 32.6 (32.0-36.0) g/dL RDW 14.2 (12.0-15.0) % Plt Count 259 (130-450) 10^3/uL MPV 7.9 (7.4-11.4) fL Neut # 10.3 H (1.5-6.6) 10^3/uL Lymph # 1.6 (1.5-3.5) 10^3/uL [place] # 0.9 (0.0-1.0) 10^3/uL Eos # 0.0 (0.0-0.7) 10^3/uL Baso # 0.0 (0.0-0.1) 10^3/uL Absolute Nucleated RBC 0.00 x10^3/uL Nucleated RBC % 0.0 /100WBC Sodium (135-145) mmol/L Potassium (3.5-5.0) mmol/L Chloride (101-111) mmol/L Carbon Dioxide (21-32) mmol/L Anion Gap (6-13) BUN (6-20) mg/dL Creatinine (0.6-1.2) mg/dL Estimated GFR (MDRD) (>89) Glucose (70-100) mg/dL Lactic Acid (0.5-2.2) mmol/L Calcium (8.5-10.3) mg/dL Total Bilirubin (0.2-1.0) mg/dL AST (10-42) IU/L ALT (10-60) IU/L Alkaline Phosphatase (42-121) IU/L Total Protein (6.7-8.2) g/dL Albumin (3.2-5.5) g/dL Globulin (2.1-4.2) g/dL Albumin/Globulin Ratio (1.0-2.2) Triglycerides ( - 149) mg/dL Cholesterol ( - 199) mg/dL LDL Cholesterol, Calc ( - 129) mg/dL VLDL Cholesterol mg/dL HDL Cholesterol (60 - ) mg/dL LDL/HDL Ratio (<3.6) Cholesterol/HDL Ratio (<5.0) Lipase (22-51) U/L Assessment/Plan - Problem List (1) Acute on chronic pancreatitis Impression: (1) Acute on chronic pancreatitis Conclusion/Plan: pt agree and will have procedure at this afternoon, will follow up continue NPO until procedure is done, then put diet to pt to see if pt can tolerate the food pain control daily lab, vital monitor Lipase is down to the normal. pt still complains of pain, and ask for more pain medication. advise pt how to manage the pain continue IVF NS continue NPO until procedure done by surgeon unknown etiology, remote alcoholic pancreatitis IVF NS NPO daily lab, and Lipase test, vital monitor Lipid panel test pain control (2) Colon wall thickening Conclusion/Plan: pt agree and will have procedure at today afternoon, will follow up with surgeon Pt could not follow up surgeon' recommended procedure preparation, so pt did not finish the procedure. Pt complains of pain. pt has Morphin 2mg Q2H, and with [place] PRN. will follow up surgeon, to finish the procedure to pt surgeon was consulted, plan to do colonoscopy NPO IVF NS will follow up after procedure (3) Currently smokes tobacco Conclusion/Plan: consult and advise pt quit smoking Nicotin Patch (4) Nausea good controlled today will continue current regime (5) Hypertension pt has elevated BP again. Give once Clonidine pt's BP is down to 102/53 from previous 191/96. Pt denies chest pain, headache ache, shortness of breath. ECHO is unremarkable. Clonidine, hydralazine PRN Pt report he regularly took Marijuana. consideration of cannabis withdrawal
[2017-04-29] MEDS: PANTOPRAZOLE 40 MG TABLET PO SCH (18:05)
[2017-04-29] MEDS: SUCRALFATE 1 GM/10 ML UDC PO SCH ×2 (18:05→21:29)
[2017-04-29] MEDS: METOCLOPRAMIDE 10 MG/2 ML VIAL IVP PRN (18:06)
[2017-04-29] MEDS: PROCHLORPERAZINE 10 MG/2 ML VIAL IVP PRN (20:14)
[2017-04-30] MEDS: HYDROcod/ACETAM 5/325 MG TABLET PO PRN ×2 (00:03→09:39)
[2017-04-30] MEDS: D5.45NS W/20 MEQ KCL 1,000 ML IV SCH (04:22)
[2017-04-30 05:23] LABS: BASOPHILS # (AUTO) 0.1 10^3/uL (0.0-0.1); BASOPHILS % (AUTO) 0.7 %; EOSINOPHILS # (AUTO) 0.1 10^3/uL (0.0-0.7); EOSINOPHILS % (AUTO) 0.7 %; HCT - HEMATOCRIT 42.6 % (42.0-52.0); HGB - HEMOGLOBIN 13.7 g/dL (14.0-18.0); LYMPHOCYTES # (AUTO) 3.1 10^3/uL (1.5-3.5); LYMPHOCYTES % (AUTO) 34.5 %; MEAN CORPUSCULAR HGB CONC 32.2 g/dL (32.0-36.0); MEAN CORPUSCULAR VOLUME 80.9 fL (80.0-94.0); MEAN PLATELET VOLUME 8.2 fL (7.4-11.4); MONOCYTES % (AUTO) 11.7 %; NEUTROPHILS # (AUTO) 4.7 10^3/uL (1.5-6.6); NEUTROPHILS % (AUTO) 52.4 %; NUCLEATED RED BLOOD CELLS AUTO 0.1 /100WBC; RED BLOOD COUNT 5.26 10^6/uL (4.70-6.10); RED CELL DISTRIBUTION WIDTH 14.1 % (12.0-15.0); UNCORRECTED WHITE BLOOD COUNT 8.9 x10^3/uL; WHITE BLOOD COUNT 8.9 x10^3/uL (4.8-10.8)
[2017-04-30] MEDS: SODIUM CHLORIDE FLUSH 0.9% 10 ML SYRINGE IVP SCH ×2 (05:26→10:10)
[2017-04-30 05:27] LABS: ALBUMIN/GLOBULIN RATIO 1.6 (1.0-2.2); BILIRUBIN,TOTAL 1.1 mg/dL (0.2-1.0); CALCIUM 9.2 mg/dL (8.5-10.3); CREATININE 1.1 mg/dL (0.6-1.2); POTASSIUM 3.5 mmol/L (3.5-5.0); TOTAL PROTEIN 6.5 g/dL (6.7-8.2)
[2017-04-30] MEDS: SUCRALFATE 1 GM/10 ML UDC PO SCH (06:32)
[2017-04-30] MEDS: PANTOPRAZOLE 40 MG TABLET PO SCH (06:32)
[2017-04-30 08:38] VITALS: BP 129/64
[2017-04-30] MEDS: MORPHINE 2 MG/ML SYRINGE IVP PRN ×2 (08:43→10:09)
[2017-04-30] MEDS: PROCHLORPERAZINE 10 MG/2 ML VIAL IVP PRN (08:55)
--- NOTE | 2017-04-30 09:18 | Discharge Plan ---
Discharge Plan Disposition: 01 Home, Self Care Condition: Stable Prescriptions: Morphine ER 15 mg PO Q12H PRN #6 tablet PRN Reason: Pain Diet: Regular Activity Restrictions: Activity as Tolerated Shower Restrictions: No Driving Restrictions: No Weight Bearing: Full Weight Additional Instructions or Follow Up instructions: May see PCP in one week and see Pool Nurse in two weeks No Smoking: If you smoke, Please STOP! Call for help. Follow-up with: Maximiliano Figueroa MD [Primary Care Provider] -
[2017-04-30] MEDS: METOCLOPRAMIDE 10 MG/2 ML VIAL IVP PRN (10:09)
--- NOTE | 2017-04-30 10:28 | DISCHARGE SUMMARY ---
"Discharge Summary Admit Date: 04/30/17 Discharge Date: 04/30/17 Discharging Provider: SANCHES Primary Care Provider: Maximiliano Padilla Condition at Discharge: Stable Discharge Disposition: 01 Home, Self Care Discharge Facility Name: home - DIAGNOSES Admission Diagnoses: (1) Acute on chronic pancreatitis (2) Colon wall thickening (3) Currently smokes tobacco (4) Nausea (5) bradycardia Discharge Diagnoses with Status of Each Condition: (1) Acute on chronic pancreatitis Lipase is down to the WNL. pt is advised to see PCP in one week and GI doctor in two weeks for the chronic condition. Pain meds is prescribed to pt. (2) Colon wall thickening EGD and colonoscopy were done to pt. please review surgeon Mr. Powers's finding. No complication was found (3) Currently smokes tobacco consulted and advised pt quit the smoking (4) Nausea resolved (5) bradycardia asymptomatic. Pt state he had for many years. Pt decline for further evaluation and treatment. (6) HTN resolved - HPI History of Present Illness: please review my HPI on 04/28/17. - CONSULTS | PROCEDURES Consultations: Dr. Powers, surgeon Procedures: EGD and colonoscopy - HOSPITAL COURSE Hospital Course: pt was admitted with acute on chronic pancreatitis and thick bowel wall. Surgeon Dr. Powers was consulted. Pt was treated with IVF, NPO, pain control. The lipase is down to the WNL. Surgeon did EGD and colonoscopy for pt. No complication was found per surgeon's report. Pt developed HTN in the hospital, then pt's BP became normal. Pt has hx of bradycardia, asymptomatic. Pt decline for further cardiac evaluation - ALLERGIES Allergies/Adverse Reactions: Allergies Allergy/AdvReac Type Severity Reaction Status Date / Time No Known Drug Allergies Allergy Verified 05/18/15 06:22 - MEDICATIONS Home Medications: Ambulatory Orders Medication Instructions Recorded Confirmed Omeprazole [PriLOSEC] 20 mg PO DAILY 04/23/17 04/27/17 Ondansetron Odt [Zofran Odt] 4 mg TL Q6H PRN #15 tablet 04/23/17 04/27/17 Oxycodone HCl/Acetaminophen 1 tab PO Q8H PRN 04/27/17 04/27/17 [Oxycodon-Acetaminophen 7.5-325] Prochlorperazine Maleate 10 mg PO Q12H PRN 04/27/17 04/27/17 Promethazine [Phenergan] 25 - 50 mg PO Q6H PRN 04/27/17 04/27/17 Morphine ER 15 mg PO Q12H PRN #6 tablet 04/30/17 - PHYSICAL EXAM AT DISCHARGE General Appearance: positive: No acute distress, Alert. negative: Lethargic Eyes Bilateral: positive: Normal inspection, PERRL, EOMI, No lid inflammation, Conjunctivae nml ENT: positive: ENT inspection nml, Pharynx nml, No signs of dehydration. negative: Purulent nasal drainage, Pharyngeal erythema, Oral lesions Neck: positive: Nml inspection, Thyroid nml, No JVD, Trachea midline. negative : Thyromegaly, Lymphadenopathy (R), Lymphadenopathy (L), Stiff neck, Carotid bruit, Swelling/bruising, Tracheal deviation Respiratory: positive: Chest non-tender, No respiratory distress, Breath sounds nml. negative: Wheezes, Rales, Rhonchi Cardiovascular: positive: Regular rate & rhythm, No murmur, No gallop, Bradycardia. negative: Irregularly irregular, Extrasystoles, Tachycardia, Systolic murmur, Diastolic murmur Peripheral Pulses: positive: 2+ Abdomen: positive: Non-tender, No organomegaly, Nml bowel sounds, No distention. negative: Tenderness, Guarding, Rebound, Abnml bowel sounds Back: positive: Nml inspection. negative: CVA tenderness (R), CVA tenderness (L ) Skin: positive: Color nml, No rash, Warm, Dry. negative: Cyanosis, Diaphoresis , Pallor, Skin rash Extremities: positive: Non-tender, Full ROM, Nml appearance. negative: Calf tenderness, Rachell's sign/cords Neurologic/Psychiatric: positive: Oriented x3, Motor nml, Sensation nml. negative: Weakness, Sensory loss, Facial droop, Slurred/abnml speech, Depressed mood/affect - LABS Result Diagrams: 04/30/17 04:39 04/30/17 04:39 - FOLLOW UP Follow Up: Pt is advised to see PCP in one week, see pond worker in two weeks. Pain meds is prescribed to pt. All pt and his family's questions are answered."
== END 2017-04-30 10:20 | disposition home or self-care (01) | DRG 440 ==
LOC: EDUNIT# → ED 08:37 → OBS 14:57 → MS2 04-29 08:15 → OBSVTOIN 04-29 08:15 → INTOOBSV 04-30 08:03 → OBSVTOIN 04-30 08:03 → UNDODISIN 04-30 10:20
PROVIDERS: ADMIT Nurse Practitioner Gerontology; ATTEND Nurse Practitioner Gerontology
PROC: 0DJD8ZZ Inspection of Lower Intestinal Tract, Via Natural or Artificial Opening Endoscopic (ICD-10-PCS; 2017-04-29)
PROC: 0DB58ZX Excision of Esophagus, Via Natural or Artificial Opening Endoscopic, Diagnostic (ICD-10-PCS; principal; 2017-04-29 14:50)
PROC: 0DB68ZX Excision of Stomach, Via Natural or Artificial Opening Endoscopic, Diagnostic (ICD-10-PCS; 2017-04-29 14:50)
DX: K85.80 Other acute pancreatitis without necrosis or infection (principal); K63.89 Other specified diseases of intestine; R00.1 Bradycardia, unspecified; F17.210 Nicotine dependence, cigarettes, uncomplicated; Z77.29 Contact with and (suspected) exposure to other hazardous substances; Z79.899 Other long term (current) drug therapy; Z79.891 Long term (current) use of opiate analgesic
CPT/HCPCS: 36415; 74000; 74177; 76705; 80053; 80061; 80306; 80320; 81001; 81003; 83605; 83690; 83735; 84484; 85025; 87086; 88106; 88305; 93005; 93306; 96361; 96365; 96366; 96374; 96375; 96376; 99284; J1170

== ENCOUNTER 2017-04-30 11:34 | Outpatient (CLI) | payer MEDICAID | END 2017-04-30 11:35 | disposition short-term general hospital (02) | LOC: EMS 11:34 | PROVIDERS: ATTEND Surgery | DX: R10.9 Unspecified abdominal pain (principal) | CPT/HCPCS: A0425; A0427; A0888 ==

== ENCOUNTER 2017-05-06 08:08 | Outpatient (CLI) | payer MEDICAID | END 2017-05-06 08:09 | disposition short-term general hospital (02) | LOC: EMS 08:08 | PROVIDERS: ATTEND Surgery | DX: R10.12 Left upper quadrant pain (principal); R11.10 Vomiting, unspecified | CPT/HCPCS: A0425; A0427 ==

== ENCOUNTER 2017-05-31 08:19 | Outpatient (CLI) | payer MEDICAID | END 2017-05-31 08:20 | disposition short-term general hospital (02) | LOC: EMS 08:19 | PROVIDERS: ATTEND Surgery | DX: R11.2 Nausea with vomiting, unspecified (principal) | CPT/HCPCS: A0425; A0427; A0888 ==

== ENCOUNTER 2017-06-02 08:55 | Outpatient (CLI) | payer MEDICAID | END 2017-06-02 08:56 | disposition critical access hospital (66) | LOC: EMS 08:55 | PROVIDERS: ATTEND Surgery | DX: R10.9 Unspecified abdominal pain (principal) | CPT/HCPCS: A0425; A0427 ==

== ENCOUNTER 2017-06-02 09:15 | Inpatient (IN) | payer MEDICAID ==
[2017-06-02] MEDS ORDERED: SODIUM CHLORIDE 0.9% 1,000 ML IV ONE (09:22)
[2017-06-02] MEDS ORDERED: ONDANSETRON 4 MG/2 ML VIAL IVP STA (10:09)
[2017-06-02] MEDS ORDERED: ONDANSETRON 4 MG/2 ML VIAL ONE (10:15)
--- NOTE | 2017-06-02 10:22 | ED Physician Documentation ---
PD HPI ABD PAIN - Stated complaint Stated Complaint: ABD PX - Chief complaint Chief Complaint: Abd Pain - History obtained from History obtained from: Patient - History of Present Illness Timing - onset: Today (This morning) Timing - details: Gradual onset Quality: Cramping, Aching, Sharp, Pain Review of Systems Constitutional: denies: Fever, Chills Throat: denies: Sore throat Cardiac: denies: Chest pain / pressure, Palpitations, Pedal edema Respiratory: denies: Dyspnea, Cough GI: reports: Abdominal Pain, Nausea, Vomiting. denies: Constipation, Diarrhea, Hematemesis, Bloody / black stool : denies: Dysuria, Frequency Skin: denies: Rash, Lesions, Laceration (s) Musculoskeletal: denies: Neck pain, Back pain, Joint pain Neurologic: denies: Numbness, Syncope PD PAST MEDICAL HISTORY - Past Medical History Cardiovascular: Hypertension Respiratory: None Neuro: None Endocrine/Autoimmune: None GI: Pancreatitis : None HEENT: None Psych: None Musculoskeletal: None Derm: None - Past Surgical History Past Surgical History: Yes Ortho: Other - Present Medications Home Medications: Ambulatory Orders Medication Instructions Recorded Confirmed Omeprazole [PriLOSEC] 20 mg PO DAILY 04/23/17 06/02/17 Ondansetron Odt [Zofran Odt] 4 mg TL Q6H PRN #15 tablet 04/23/17 06/02/17 Oxycodone HCl/Acetaminophen 1 tab PO Q8H PRN 04/27/17 06/02/17 [Oxycodon-Acetaminophen 7.5-325] Prochlorperazine Maleate 10 mg PO Q12H PRN 04/27/17 06/02/17 Promethazine [Phenergan] 25 - 50 mg PO Q6H PRN 04/27/17 06/02/17 - Allergies Allergies/Adverse Reactions: Allergies Allergy/AdvReac Type Severity Reaction Status Date / Time No Known Drug Allergies Allergy Verified 06/02/17 09:21 - Social History Does the pt smoke?: Yes Smoking Status: Current every day smoker Does the pt drink ETOH?: No Does the pt have substance abuse?: Yes Substance Use and Type: Marijuana - Immunizations Immunizations are current?: No - POLST Patient has POLST: No POLST Status: Full Code PD ED PE NORMAL - Vitals Vital signs reviewed: Yes - General General: Alert and oriented X 3, Well developed/nourished - HEENT HEENT: Atraumatic, Moist mucous membranes - Cardiac Cardiac: RRR (Bradycardic) - Respiratory Respiratory: No respiratory distress - Abdomen Abdomen: Soft, Non distended. No: Non tender (LUQ Tenderness) - Derm Derm: Warm and dry, No rash - Neuro Neuro: Alert and oriented X 3 Eye Opening: Spontaneous Motor: Obeys Commands Verbal: Oriented GCS Score: 15 - Psych Psych: Normal mood Results - Vitals Vitals: Vital Signs - 24 hr 06/02/17 06/02/17 06/02/17 09:18 09:54 11:10 Temperature 37.2 C 36.1 C L Heart Rate 50 L 50 L 49 L Respiratory 24 15 18 Rate Blood Pressure 201/111 H 213/101 H 134/56 H O2 Saturation 97 98 99 06/02/17 12:32 Temperature 36.8 C Heart Rate 51 L Respiratory 15 Rate Blood Pressure 196/107 H O2 Saturation 99 Oxygen O2 Source Room air - Labs Labs: Laboratory Tests 06/02/17 06/02/17 06/02/17 09:21 10:24 10:24 WBC 8.8 RBC 5.34 Hgb 14.3 Hct 42.7 MCV 80.0 MCH 26.7 L MCHC 33.4 RDW 14.4 Plt Count 231 MPV 7.4 Neut # 6.7 H Lymph # 1.3 L [place] # 0.6 Eos # 0.1 Baso # 0.1 Absolute Nucleated RBC 0.00 Nucleated RBC % 0.0 Sodium 139 Potassium 3.9 Chloride 103 Carbon Dioxide 25 Anion Gap 11.0 BUN 11 Creatinine 1.1 Estimated GFR (MDRD) 92 Glucose 113 H POC Whole Bld Glucose 105 H Calcium 9.1 Total Bilirubin 0.4 AST 24 ALT 43 Alkaline Phosphatase 69 Total Protein 7.3 Albumin 4.5 Globulin 2.8 Albumin/Globulin Ratio 1.6 Lipase 327 H Urine Color Urine Clarity Urine pH Ur Specific [place] Urine Protein Urine Glucose (UA) Urine Ketones Urine Occult Blood Urine Nitrite Urine Bilirubin Urine Urobilinogen Ur Leukocyte Esterase Ur Microscopic Review Urine Culture Comments Ethyl Alcohol < 5.0 06/02/17 12:10 WBC RBC Hgb Hct MCV MCH MCHC RDW Plt Count MPV Neut # Lymph # [place] # Eos # Baso # Absolute Nucleated RBC Nucleated RBC % Sodium Potassium Chloride Carbon Dioxide Anion Gap BUN Creatinine Estimated GFR (MDRD) Glucose POC Whole Bld Glucose Calcium Total Bilirubin AST ALT Alkaline Phosphatase Total Protein Albumin Globulin Albumin/Globulin Ratio Lipase Urine Color YELLOW Urine Clarity CLEAR Urine pH 7.0 Ur Specific [place] 1.025 Urine Protein NEGATIVE Urine Glucose (UA) NEGATIVE Urine Ketones NEGATIVE Urine Occult Blood NEGATIVE Urine Nitrite NEGATIVE Urine Bilirubin NEGATIVE Urine Urobilinogen 0.2 (NORMAL) Ur Leukocyte Esterase NEGATIVE Ur Microscopic Review NOT INDICATED Urine Culture Comments NOT INDICATED Ethyl Alcohol PD MEDICAL DECISION MAKING - ED course Complexity details: d/w patient, d/w wireless consultant ED course: pt with hx of chronic pancreatitis. States that he is not drinking ETOH. Was given doses of pain meds and anti-nausea meds in the ER. Has elevated lipase. Doubt sepsis. Will admit. Departure - Departure Clinical Impression: Pancreatitis Pancreatitis, acute Qualifiers: Pancreatitis type: unspecified pancreatitis type Condition: Stable
[2017-06-02 10:32] LABS: BASOPHILS # (AUTO) 0.1 10^3/uL (0.0-0.1); BASOPHILS % (AUTO) 0.6 %; EOSINOPHILS # (AUTO) 0.1 10^3/uL (0.0-0.7); HCT - HEMATOCRIT 42.7 % (42.0-52.0); HGB - HEMOGLOBIN 14.3 g/dL (14.0-18.0); LYMPHOCYTES # (AUTO) 1.3 10^3/uL (1.5-3.5); LYMPHOCYTES % (AUTO) 14.9 %; MEAN CORPUSCULAR HEMOGLOBIN 26.7 pg (27.0-31.0); MEAN CORPUSCULAR HGB CONC 33.4 g/dL (32.0-36.0); MEAN PLATELET VOLUME 7.4 fL (7.4-11.4); MONOCYTES # (AUTO) 0.6 10^3/uL (0.0-1.0); MONOCYTES % (AUTO) 7.1 %; NEUTROPHILS # (AUTO) 6.7 10^3/uL (1.5-6.6); NEUTROPHILS % (AUTO) 76.4 %; RED BLOOD COUNT 5.34 10^6/uL (4.70-6.10); RED CELL DISTRIBUTION WIDTH 14.4 % (12.0-15.0); UNCORRECTED WHITE BLOOD COUNT 8.8 x10^3/uL; WHITE BLOOD COUNT 8.8 x10^3/uL (4.8-10.8)
[2017-06-02 10:47] LABS: ALBUMIN/GLOBULIN RATIO 1.6 (1.0-2.2); BILIRUBIN,TOTAL 0.4 mg/dL (0.2-1.0); BUN - BLOOD UREA NITROGEN 11 mg/dL (6-20); CALCIUM 9.1 mg/dL (8.5-10.3); CARBON DIOXIDE - CO2 25 mmol/L (21-32); CHLORIDE 103 mmol/L (101-111); CREATININE 1.1 mg/dL (0.6-1.2); GFR - MDRD 92 (>89); GLUCOSE 113 mg/dL (70-100); LIPASE 327 U/L (22-51); POTASSIUM 3.9 mmol/L (3.5-5.0); SODIUM 139 mmol/L (135-145); TOTAL PROTEIN 7.3 g/dL (6.7-8.2)
[2017-06-02] MEDS ORDERED: PROMETHAZINE INJ 25 MG in SODIUM CHLORIDE 0.9% 50 ML IV STA (11:24)
[2017-06-02] MEDS ORDERED: PROMETHAZINE 25 MG/1 ML VIAL ONE (11:33)
[2017-06-02] MEDS ORDERED: HYDROmorphone 1 MG/ML SYRINGE IVP STA (12:05)
[2017-06-02] MEDS ORDERED: HYDROmorphone 1 MG/ML SYRINGE ONE (12:20)
[2017-06-02 12:27] LABS: BILIRUBIN,URINE NEGATIVE (NEGATIVE)
[2017-06-02 12:30] LABS: UA CHARGE (STRIP ONLY) YES; UR CULTURE IF IND NOT INDICATED
[2017-06-02] MEDS ORDERED: cloNIDine 0.1 MG TABLET PO PRN (13:15)
[2017-06-02] MEDS ORDERED: hydrALAZINE INJ 20 MG/ML VIAL IVP PRN (13:16)
[2017-06-02] MEDS ORDERED: oxyCOD/ACETAMIN 5 MG/325 MG TABLET PO PRN (13:24)
[2017-06-02] MEDS ORDERED: oxyCODONE 5 MG TABLET PO PRN (14:01)
[2017-06-02] MEDS: SODIUM CHLORIDE 0.9% 1,000 ML IV SCH ×2 (14:09→20:47)
[2017-06-02] MEDS: SODIUM CHLORIDE FLUSH 0.9% 10 ML SYRINGE IVP SCH ×2 (14:09→23:02)
[2017-06-02] MEDS: HYDROmorphone 0.5 MG/0.5 ML SYRINGE IVP PRN ×3 (14:26→23:32)
[2017-06-02] MEDS: ONDANSETRON 4 MG/2 ML VIAL IVP PRN (14:30)
--- NOTE | 2017-06-02 16:42 | HISTORY & PHYSICAL EXAMINATION ---
Chief Complaint - Chief Complaint Chief Complaint: abdominal pain, nausea and vomiting History of Present Illness - Admitted From Admitted From:: ER - History Obtained From History obtained from: Pt - History of Present Illness HPI Comment/Other: This is a 36-year-old male with a past medical history significance for chronic pancreatitis, current marijuana and cigarette smoker, HTN, who present ER for evaluation of abdominal pain, and nausea and vomiting. Pt is familiar to our service. Pt has recurrent pancreatitis. Pt was advised to follow up his GI doctor but unfortunately pt did not see his GI doctor as far. Pt had similar complain on today, upper epigastric area pain with nausea and vomiting. Pt denies hematemesis. Pt denies alcoholic usage, fever, chill, cough, chest pain, palpation, shortness of breath, headache, diarrhea, dysuria, hematuria, GI bleeding, vision changing. Lab test pt has elevated Lipase to 327. History - Past Medical History Cardiovascular: reports: Hypertension Respiratory: reports: None Neuro: reports: None Endocrine/Autoimmune: reports: None GI: reports: Pancreatitis : reports: None HEENT: reports: None Psych: reports: None Musculoskeletal: reports: None Derm: reports: None MRSA Hx?: No - Past Surgical History Ortho: reports: Other - Substance History Use: Uses substance without health or social issues: Tobacco, Cannabis - POLST Patient has POLST: No POLST Status: Full Code Meds/Allgy - Home Medications Home Medications: Ambulatory Orders Medication Instructions Recorded Confirmed No Known Home Medications [No 06/02/17 06/02/17 Known Home Medications] - Allergies Allergies/Adverse Reactions: Allergies Allergy/AdvReac Type Severity Reaction Status Date / Time No Known Drug Allergies Allergy Verified 06/02/17 09:21 Review of Systems - Constitutional Constitutional: denies: Fatigue, Fever, Chills, Malaise, Weakness, Poor appetite , Diaphoresis, Night sweats, Weight gain, Weight loss - Eyes Eyes: denies: Pain, Irritation, Amaurosis, Blurred vision, Spots in vision, Field loss, Vision loss, Dipolpia - Ears, Nose & Throat Ears, Nose & Throat: denies: Ear pain, Hearing loss, Hearing aids, Tinnitus, Vertigo, Nasal pain, Nasal discharge, Nosebleeds, Nasal obstruction, Nasal congestion, Postnasal drainage, Dentures, Sore throat, Mouth lesions, Bleeding gums - Cardiovascular Cariovascular: denies: Irregular heart rate, Palpitations, Chest pain, Edema, Lightheadedness, Syncope, Exertional dyspnea, Decr. exercise tolerance - Respiratory Respiratory: denies: Cough, Sputum production, Wheezing, Snoring, Hemoptysis, Orthopnea, SOB at rest, SOB with exertion, Apnea - Gastrointestinal Gastrointestinal: reports: Abdominal pain, Nausea, Vomiting. denies: Abdominal distention, Constipation, Diarrhea, Change in bowel habits, Rectal bleeding, Black stools, Bloody stools, Bile emesis, Jan blood emesis, Coffee grounds emesis, Reflux/heartburn, Bloating, Poor appetite - Genitourinary Genitourinary: denies: Dysuria, Frequency, Urgency, Hematuria, Incontinence, Flank pain, Nocturia, Urethral discharge - Musculoskeletal Musculoskeletal: denies: Muscle pain, Back pain, Limited range of motion, Muscle weakness, Gout, Joint pain - Integumentary Integumentary: denies: Rash, Pruritis, Lesions, Dryness, Lumps, Acne, Pigment changes, Nail changes - Neurological Neurological: denies: General weakness, Focal weakness, Headache, Dizziness, Numbness, Memory problems, Pre-existing deficit, Abnormal gait, Seizures, Incoordination, Slurred speech - Psychiatric Psychiatric: denies: Depression, Anxiety, Suicidal, Delusions, Hallucinations, Homicidal - Endocrine Endocrine: denies: Polyuria, Polydypsia, Polyphagia, Intolerance to cold, Intolerance to heat - Hematologic/Lymphatic Hematologic/Lymphatic: denies: Anemia, Bruising, Petechiae, Blood clots, Lymphadenopathy, Bleeding tendencies, Recurrent infections Exam - Vital Signs Reviewed Vital Signs: Yes Vital Signs: Vital Signs x48h Temp Pulse Resp BP Pulse Ox 06/02/17 15:27 36.6 C 54 L 17 129/84 H 99 06/02/17 14:00 37.0 C 50 L 18 206/119 H 100 - Physical Exam General Appearance: positive: No acute distress, Alert. negative: Lethargic Eyes Bilateral: positive: Normal inspection, PERRL, EOMI. negative: No lid inflammation, Conjunctivae nml ENT: positive: ENT inspection nml, Pharynx nml, No signs of dehydration. negative: Purulent nasal drainage, Pharyngeal erythema, Oral lesions Neck: positive: Nml inspection, Thyroid nml, No JVD, Trachea midline. negative : Thyromegaly, Lymphadenopathy (R), Lymphadenopathy (L), Stiff neck, Carotid bruit, Swelling/bruising, Tracheal deviation Respiratory: positive: Chest non-tender, No respiratory distress, Breath sounds nml. negative: Wheezes, Rales, Rhonchi Cardiovascular: positive: Regular rate & rhythm, No murmur, No gallop. negative : Irregularly irregular, Extrasystoles, Tachycardia, Bradycardia, Systolic murmur, Diastolic murmur Peripheral Pulses: positive: 2+ Abdomen: positive: Non-tender, Nml bowel sounds, No distention. negative: Tenderness, Guarding, Rebound Back: positive: Nml inspection. negative: CVA tenderness (R), CVA tenderness (L ) Skin: positive: Color nml, No rash, Warm, Dry. negative: Cyanosis, Diaphoresis , Pallor, Skin rash Extremities: positive: Non-tender, Full ROM, Nml appearance. negative: Pedal edema, Joint swelling, Rachell's sign/cords Neurologic/Psychiatric: positive: Oriented x3, Motor nml, Sensation nml, Mood/ affect nml. negative: Weakness, Sensory loss, Facial droop, Slurred/abnml speech, Depressed mood/affect Conclusion/Plan - Problem List (1) Acute on chronic pancreatitis Conclusion/Plan: pain control IVF, NPO continue monitor Lipase daily lab vital monitor (2) HTN (hypertension) Conclusion/Plan: pt's SBP can jump over 200, then down to NWL without any medication treatment. add PRN BP meds Clonidine and hydralazine continue vital monitor (3) Cigarette smoker Conclusion/Plan: advised pt quit Nicotin Patch (4) Nausea & vomiting Conclusion/Plan: pt is feeling better Zofran and Companz PRN (5) DVT prophylaxis Conclusion/Plan: SCD, pt has no limitation of mobility (6) Full code status Conclusion/Plan: pt request full code status - Lab Results Fish Bones: 06/02/17 10:24 06/02/17 10:24 Issues/Core Measures - Anticipated LOS Anticipated Stay Length: 2 or more midnights (expect two more nights)
[2017-06-02] MEDS: NICOTINE 21 MG PATCH TOP SCH (17:39)
[2017-06-02] MEDS: PROCHLORPERAZINE 10 MG/2 ML VIAL IVP PRN (18:09)
[2017-06-03] MEDS: SODIUM CHLORIDE 0.9% 1,000 ML IV SCH ×4 (03:10→23:29)
[2017-06-03] MEDS: SODIUM CHLORIDE FLUSH 0.9% 10 ML SYRINGE IVP SCH ×3 (05:30→19:54)
[2017-06-03] MEDS: HYDROmorphone 0.5 MG/0.5 ML SYRINGE IVP PRN ×5 (05:38→23:29)
[2017-06-03 08:07] LABS: ALBUMIN/GLOBULIN RATIO 1.4 (1.0-2.2); BILIRUBIN,TOTAL 0.8 mg/dL (0.2-1.0); CREATININE 1.1 mg/dL (0.6-1.2); POTASSIUM 3.6 mmol/L (3.5-5.0); TOTAL PROTEIN 6.4 g/dL (6.7-8.2)
[2017-06-03 08:21] LABS: BASOPHILS % (AUTO) 0.5 %; EOSINOPHILS # (AUTO) 0.1 10^3/uL (0.0-0.7); EOSINOPHILS % (AUTO) 1.1 %; HCT - HEMATOCRIT 40.5 % (42.0-52.0); HGB - HEMOGLOBIN 13.4 g/dL (14.0-18.0); LYMPHOCYTES # (AUTO) 2.7 10^3/uL (1.5-3.5); LYMPHOCYTES % (AUTO) 28.4 %; MEAN CORPUSCULAR HEMOGLOBIN 26.7 pg (27.0-31.0); MEAN CORPUSCULAR HGB CONC 33.1 g/dL (32.0-36.0); MEAN CORPUSCULAR VOLUME 80.7 fL (80.0-94.0); MEAN PLATELET VOLUME 7.7 fL (7.4-11.4); MONOCYTES # (AUTO) 0.8 10^3/uL (0.0-1.0); MONOCYTES % (AUTO) 8.3 %; NEUTROPHILS # (AUTO) 5.9 10^3/uL (1.5-6.6); NEUTROPHILS % (AUTO) 61.7 %; RED BLOOD COUNT 5.02 10^6/uL (4.70-6.10); RED CELL DISTRIBUTION WIDTH 14.3 % (12.0-15.0); UNCORRECTED WHITE BLOOD COUNT 9.6 x10^3/uL; WHITE BLOOD COUNT 9.6 x10^3/uL (4.8-10.8)
[2017-06-03] MEDS: POLYETHYLENE GLYCOL 3350 17 GM PACKET PO SCH (08:53)
[2017-06-03] MEDS: NICOTINE 21 MG PATCH TOP SCH (08:53)
[2017-06-03] MEDS: FAMOTIDINE 20 MG TABLET PO SCH (08:53)
[2017-06-03] MEDS: ONDANSETRON 4 MG/2 ML VIAL IVP PRN ×3 (09:39→23:29)
[2017-06-03] MEDS: SODIUM CHLORIDE FLUSH 0.9% 10 ML SYRINGE IVP PRN ×2 (09:42→09:43)
[2017-06-03] MEDS: PROCHLORPERAZINE 10 MG/2 ML VIAL IVP PRN ×2 (10:57→16:56)
--- NOTE | 2017-06-03 17:33 | PROVIDER PROGRESS NOTE ---
Objective - Vital Signs/Intake & Output Vital Signs: Vital Signs x48h Temp Pulse Resp BP Pulse Ox 06/03/17 16:41 178/104 H 06/03/17 15:41 37.5 C 54 L 20 97 Intake & Output: Intake & Output 05/31/17 06/01/17 06/02/17 06/03/17 23:59 23:59 23:59 23:59 Intake Total 995 3527.5 Output Total 500 Balance 995 3027.5 - Lab Results Fish Bones: 06/03/17 07:49 06/03/17 07:49 Other Labs: Lab Results x24hrs 06/03/17 06/03/17 06/03/17 Range/Units 07:49 07:49 05:11 WBC 9.6 (4.8-10.8) x10^3/uL RBC 5.02 (4.70-6.10) 10^6/uL Hgb 13.4 L (14.0-18.0) g/dL Hct 40.5 L (42.0-52.0) % MCV 80.7 (80.0-94.0) fL MCH 26.7 L (27.0-31.0) pg MCHC 33.1 (32.0-36.0) g/dL RDW 14.3 (12.0-15.0) % Plt Count 219 (130-450) 10^3/uL MPV 7.7 (7.4-11.4) fL Neut # 5.9 (1.5-6.6) 10^3/uL Lymph # 2.7 (1.5-3.5) 10^3/uL [place] # 0.8 (0.0-1.0) 10^3/uL Eos # 0.1 (0.0-0.7) 10^3/uL Baso # 0.0 (0.0-0.1) 10^3/uL Absolute Nucleated RBC 0.00 x10^3/uL Nucleated RBC % 0.0 /100WBC Sodium 138 (135-145) mmol/L Potassium 3.6 (3.5-5.0) mmol/L Chloride 103 (101-111) mmol/L Carbon Dioxide 24 (21-32) mmol/L Anion Gap 11.0 (6-13) BUN 13 (6-20) mg/dL Creatinine 1.1 (0.6-1.2) mg/dL Estimated GFR (MDRD) 92 (>89) Glucose 95 (70-100) mg/dL Calcium 9.0 (8.5-10.3) mg/dL Total Bilirubin 0.8 (0.2-1.0) mg/dL AST 20 (10-42) IU/L ALT 33 (10-60) IU/L Alkaline Phosphatase 58 (42-121) IU/L Total Protein 6.4 L (6.7-8.2) g/dL Albumin 3.7 (3.2-5.5) g/dL Globulin 2.7 (2.1-4.2) g/dL Albumin/Globulin Ratio 1.4 (1.0-2.2) Lipase 34 (22-51) U/L Assessment/Plan - Problem List (1) Acute on chronic pancreatitis Impression: (1) Conclusion/Plan: pt report his pain is good controlled, and ready to be D/C, but when add food to pt, pt can not tolerate the food, nausea and vomiting again, abdominal pain again. hold D/C order, continue NPO, IVF, pain control pain control IVF, NPO continue monitor Lipase daily lab vital monitor (2) HTN (hypertension) Conclusion/Plan: vital closely monitor to pt stable pt's SBP can jump over 200, then down to NWL without any medication treatment. add PRN BP meds Clonidine and hydralazine continue vital monitor (3) Cigarette smoker Conclusion/Plan: advised pt quit Nicotin Patch (4) Nausea & vomiting Conclusion/Plan: pt is feeling better Zofran and Companz PRN (5) Hematemesis nurse report pt had not lots of hematemesis, but I went to check, pt's family already washed away the blood. keep NPO IVF call surgeon and consult. state keeping here and closely monitor H&H Q6H vital change to Q4H
[2017-06-03 17:37] LABS: HCT - HEMATOCRIT 39.3 % (42.0-52.0); HGB - HEMOGLOBIN 12.7 g/dL (14.0-18.0)
[2017-06-03 23:08] LABS: HCT - HEMATOCRIT 39.1 % (42.0-52.0); HGB - HEMOGLOBIN 12.7 g/dL (14.0-18.0)
[2017-06-04 05:45] LABS: BASOPHILS # (AUTO) 0.1 10^3/uL (0.0-0.1); BASOPHILS % (AUTO) 0.8 %; EOSINOPHILS # (AUTO) 0.2 10^3/uL (0.0-0.7); EOSINOPHILS % (AUTO) 3.5 %; HCT - HEMATOCRIT 39.4 % (42.0-52.0); HGB - HEMOGLOBIN 12.6 g/dL (14.0-18.0); LYMPHOCYTES # (AUTO) 2.7 10^3/uL (1.5-3.5); LYMPHOCYTES % (AUTO) 39.5 %; MEAN CORPUSCULAR HEMOGLOBIN 26.3 pg (27.0-31.0); MEAN CORPUSCULAR HGB CONC 32.1 g/dL (32.0-36.0); MEAN CORPUSCULAR VOLUME 82.1 fL (80.0-94.0); MEAN PLATELET VOLUME 7.6 fL (7.4-11.4); MONOCYTES # (AUTO) 0.7 10^3/uL (0.0-1.0); MONOCYTES % (AUTO) 10.7 %; NEUTROPHILS # (AUTO) 3.1 10^3/uL (1.5-6.6); NEUTROPHILS % (AUTO) 45.5 %; NUCLEATED RED BLOOD CELLS AUTO 0.1 /100WBC; RED CELL DISTRIBUTION WIDTH 14.4 % (12.0-15.0); UNCORRECTED WHITE BLOOD COUNT 6.7 x10^3/uL; WHITE BLOOD COUNT 6.7 x10^3/uL (4.8-10.8)
[2017-06-04 05:59] LABS: ALBUMIN/GLOBULIN RATIO 1.5 (1.0-2.2); CALCIUM 8.6 mg/dL (8.5-10.3); POTASSIUM 3.4 mmol/L (3.5-5.0); TOTAL PROTEIN 5.9 g/dL (6.7-8.2)
[2017-06-04] MEDS: SODIUM CHLORIDE 0.9% 1,000 ML IV SCH ×3 (06:30→22:55)
[2017-06-04] MEDS: SODIUM CHLORIDE FLUSH 0.9% 10 ML SYRINGE IVP SCH ×3 (06:46→15:30)
[2017-06-04] MEDS ORDERED: POTASSIUM CHLORIDE 20 MEQ TABLET PO SCH (08:00)
[2017-06-04] MEDS: FAMOTIDINE 20 MG TABLET PO SCH (08:47)
[2017-06-04] MEDS: NICOTINE 21 MG PATCH TOP SCH ×2 (08:47→17:38)
[2017-06-04] MEDS: POLYETHYLENE GLYCOL 3350 17 GM PACKET PO SCH (08:47)
[2017-06-04] MEDS: PROCHLORPERAZINE 10 MG/2 ML VIAL IVP PRN ×2 (08:54→16:56)
[2017-06-04] MEDS: HYDROmorphone 0.5 MG/0.5 ML SYRINGE IVP PRN ×5 (08:55→23:50)
[2017-06-04 11:05] LABS: HCT - HEMATOCRIT 38.5 % (42.0-52.0); HGB - HEMOGLOBIN 12.7 g/dL (14.0-18.0)
[2017-06-04] MEDS: ONDANSETRON 4 MG/2 ML VIAL IVP PRN (12:12)
[2017-06-04] MEDS: PANTOPRAZOLE 40 MG VIAL IVP SCH (12:18)
[2017-06-04] MEDS: SODIUM CHLORIDE FLUSH 0.9% 10 ML SYRINGE IVP PRN (12:18)
--- NOTE | 2017-06-04 16:54 | PROVIDER PROGRESS NOTE ---
Subjective - Prog Note Date Prog Note Date: 06/04/17 - Subjective Pt reports feeling: Improved Subjective: pt report he is much improved. pt is tolerated clear liquid diet today, will advance to full liquid diet to see if pt is tolerated. Pt has MRCP, but pt could not finish it because he state he just can not finish. Pt reported to me he had MRI before, he had not any problem. The schedule for MRCP is full, pt can not have it until next Tuesday. Pt state he can have it as out-patient. Current Medications - Current Medications Current Medications: Active Medications Clonidine HCl (Catapres) 0.1 mg PO BID PRN PRN Reason: Hypertensive Emergency Last Admin: 06/03/17 16:41 Dose: 0.1 mg Hydralazine HCl (Apresoline Inj) 10 mg IVP TID PRN PRN Reason: Hypertensive Emergency Hydromorphone HCl (Dilaudid Inj Syringe) 0.5 mg IVP Q2H PRN PRN Reason: Pain 8 to 10 Last Admin: 06/04/17 15:30 Dose: 0.5 mg Sodium Chloride (Normal Saline 0.9%) 1,000 mls @ 150 mls/hr IV .Q6H40M [facility] Last Infusion: 06/04/17 16:32 Dose: 150 mls/hr Nicotine (Nicoderm) 1 patch TOP DAILY [facility] Last Admin: 06/04/17 08:47 Dose: 1 patch Ondansetron HCl (Zofran Inj) 4 mg IVP Q6HR PRN PRN Reason: Nausea / Vomiting Last Admin: 06/04/17 12:12 Dose: 4 mg Oxycodone HCl (Roxicodone) 2.5 mg PO Q8H PRN PRN Reason: PAIN Oxycodone/Acetaminophen (Percocet 5 Mg/325 Mg) 1 tab PO Q8H PRN PRN Reason: PAIN Last Admin: 06/02/17 16:11 Dose: 1 tab Pantoprazole Sodium (Protonix) 40 mg IVP QDAC [facility] Last Admin: 06/04/17 12:18 Dose: 40 mg Polyethylene Glycol (Miralax) 17 gm PO DAILY [facility] Last Admin: 06/04/17 08:47 Dose: Not Given Prochlorperazine Edisylate (Compazine Inj) 10 mg IVP Q6HR PRN PRN Reason: Nausea / Vomiting Last Admin: 06/04/17 08:54 Dose: 10 mg Sodium Chloride (Normal Saline Flush 0.9%) 10 ml IVP PRN PRN PRN Reason: NEEDED PER PROVIDER ORDERS Last Admin: 06/04/17 12:18 Dose: 10 ml Sodium Chloride (Normal Saline Flush 0.9%) 10 ml IVP Q8HR [facility] Last Admin: 06/04/17 15:30 Dose: 10 ml No Known Home Medications [No Known Home Medications] 06/02/17 Objective - Vital Signs/Intake & Output Reviewed Vital Signs: Yes Vital Signs: Vital Signs x48h Temp Pulse Resp BP Pulse Ox 06/04/17 13:00 37.1 C 47 L 18 130/66 98 Intake & Output: Intake & Output 06/01/17 06/02/17 06/03/17 06/04/17 23:59 23:59 23:59 23:59 Intake Total 995 4527.5 2252.5 Output Total 500 Balance 995 4027.5 2252.5 - Objective General Appearance: positive: No acute distress, Alert. negative: Lethargic Eyes Bilateral: positive: Normal inspection, PERRL, EOMI, No lid inflammation, Conjunctivae nml ENT: positive: ENT inspection nml, Pharynx nml, No signs of dehydration. negative: Purulent nasal drainage, Pharyngeal erythema, Oral lesions, Dry mucous membranes Neck: positive: Nml inspection, Thyroid nml, No JVD, Trachea midline. negative : Thyromegaly, Lymphadenopathy (R), Lymphadenopathy (L), Stiff neck, Kernig's sign, Carotid bruit, Swelling/bruising, Tracheal deviation Respiratory: positive: Chest non-tender, No respiratory distress, Breath sounds nml. negative: Wheezes, Rales, Rhonchi Cardiovascular: positive: Regular rate & rhythm, No murmur, No gallop. negative : Irregularly irregular, Extrasystoles, Tachycardia, Bradycardia, Systolic murmur, Diastolic murmur Peripheral Pulses: 2+ Radial (R), 2+ Radial (L), 2+ Dorsalis pedis (R), 2+ Dorsalis pedis (L) Abdomen: positive: Non-tender, No organomegaly, Nml bowel sounds, No distention. negative: Tenderness, Guarding, Rebound Back: positive: Nml inspection. negative: CVA tenderness (R), CVA tenderness (L ) Skin: positive: Color nml, No rash, Warm, Dry. negative: Cyanosis, Diaphoresis , Pallor, Skin rash, Puncture wound, Embolic lesions Extremities: positive: Non-tender, Full ROM, Nml appearance. negative: Calf tenderness, Joint swelling, Rachell's sign/cords Neurologic/Psychiatric: positive: Oriented x3, Motor nml, Sensation nml, Mood/ affect nml. negative: Weakness, Sensory loss, Facial droop, Slurred/abnml speech, Depressed mood/affect - Lab Results Fish Bones: 06/04/17 10:54 06/04/17 05:19 Other Labs: Lab Results x24hrs 06/04/17 06/04/17 06/04/17 Range/Units 10:54 05:19 05:19 WBC 6.7 (4.8-10.8) x10^3/uL RBC 4.80 (4.70-6.10) 10^6/uL Hgb 12.7 L 12.6 L (14.0-18.0) g/dL Hct 38.5 L 39.4 L (42.0-52.0) % MCV 82.1 (80.0-94.0) fL MCH 26.3 L (27.0-31.0) pg MCHC 32.1 (32.0-36.0) g/dL RDW 14.4 (12.0-15.0) % Plt Count 210 (130-450) 10^3/uL MPV 7.6 (7.4-11.4) fL Neut # 3.1 (1.5-6.6) 10^3/uL Lymph # 2.7 (1.5-3.5) 10^3/uL [place] # 0.7 (0.0-1.0) 10^3/uL Eos # 0.2 (0.0-0.7) 10^3/uL Baso # 0.1 (0.0-0.1) 10^3/uL Absolute Nucleated RBC 0.01 x10^3/uL Nucleated RBC % 0.1 /100WBC Sodium 139 (135-145) mmol/L Potassium 3.4 L (3.5-5.0) mmol/L Chloride 106 (101-111) mmol/L Carbon Dioxide 24 (21-32) mmol/L Anion Gap 9.0 (6-13) BUN 15 (6-20) mg/dL Creatinine 1.0 (0.6-1.2) mg/dL Estimated GFR (MDRD) 102 (>89) Glucose 77 (70-100) mg/dL Calcium 8.6 (8.5-10.3) mg/dL Total Bilirubin 1.0 (0.2-1.0) mg/dL AST 17 (10-42) IU/L ALT 28 (10-60) IU/L Alkaline Phosphatase 52 (42-121) IU/L Total Protein 5.9 L (6.7-8.2) g/dL Albumin 3.5 (3.2-5.5) g/dL Globulin 2.4 (2.1-4.2) g/dL Albumin/Globulin Ratio 1.5 (1.0-2.2) Lipase 29 (22-51) U/L 06/03/17 06/03/17 Range/Units 23:00 17:28 WBC (4.8-10.8) x10^3/uL RBC (4.70-6.10) 10^6/uL Hgb 12.7 L 12.7 L (14.0-18.0) g/dL Hct 39.1 L 39.3 L (42.0-52.0) % MCV (80.0-94.0) fL MCH (27.0-31.0) pg MCHC (32.0-36.0) g/dL RDW (12.0-15.0) % Plt Count (130-450) 10^3/uL MPV (7.4-11.4) fL Neut # (1.5-6.6) 10^3/uL Lymph # (1.5-3.5) 10^3/uL [place] # (0.0-1.0) 10^3/uL Eos # (0.0-0.7) 10^3/uL Baso # (0.0-0.1) 10^3/uL Absolute Nucleated RBC x10^3/uL Nucleated RBC % /100WBC Sodium (135-145) mmol/L Potassium (3.5-5.0) mmol/L Chloride (101-111) mmol/L Carbon Dioxide (21-32) mmol/L Anion Gap (6-13) BUN (6-20) mg/dL Creatinine (0.6-1.2) mg/dL Estimated GFR (MDRD) (>89) Glucose (70-100) mg/dL Calcium (8.5-10.3) mg/dL Total Bilirubin (0.2-1.0) mg/dL AST (10-42) IU/L ALT (10-60) IU/L Alkaline Phosphatase (42-121) IU/L Total Protein (6.7-8.2) g/dL Albumin (3.2-5.5) g/dL Globulin (2.1-4.2) g/dL Albumin/Globulin Ratio (1.0-2.2) Lipase (22-51) U/L Assessment/Plan - Problem List (1) Acute on chronic pancreatitis Impression: Conclusion/Plan: again pt feel much better. Lipase is down to 29. Today pt tolerate clear liquid diet at lunch, will advance as tolerated pt is starting IV protonix discuss with Dr. Powers for pt. state pt should have MRCP. MRCP is ordered by me. state if pt can continue tolerate the food, pt can be discharged, pt should follow his PCP to have GI specialist for full evaluation of his pancreases and GI issue, if the problem is still not resolved, he recommend pt's gallbladder be removed. Dr. Powers discuss these information with pt. Unfortunately pt could not finish MRCP. Pt state he just can not finish MRCP. Pt report to me he has no problem for MRI. Update pt's diet to full clear diet to see if pt can tolerate the food, then move to GI soft solid diet. If pt can tolerate the diet, Pt be d/c and follow up PCP, GI and Dr. Powers. continue IVF continue pain control continue vital monitor pt report his pain is good controlled, and ready to be D/C, but when add food to pt, pt can not tolerate the food, nausea and vomiting again, abdominal pain again. hold D/C order, continue NPO, IVF, pain control pain control IVF, NPO continue monitor Lipase daily lab vital monitor (2) HTN (hypertension) Conclusion/Plan: vital closely monitor to pt stable pt's SBP can jump over 200, then down to NWL without any medication treatment. add PRN BP meds Clonidine and hydralazine continue vital monitor (3) Cigarette smoker Conclusion/Plan: advised pt quit Nicotin Patch (4) Nausea & vomiting Conclusion/Plan: today much better, no nausea and vomiting reported pt is feel better continue IVF, continue current treatment vital, daily lab monitor pt is feeling better Zofran and Companz PRN (5) Hematemesis H&H review pt has stable HGB pt does not have hematemesis today it is questionable if pt has hematemesis on yesterday. I did not see it. Per another nurse report, it could vomit red jello. Hold H&H closely monitor nurse report pt had not lots of hematemesis, but I went to check, pt's family already washed away the blood. keep NPO IVF call surgeon and consult. state keeping here and closely monitor H&H Q6H vital change to Q4H
--- NOTE | 2017-06-04 18:09 | MRI Preliminary Report ---
Exam: MRI MRCP W/O Impression: Limited examination showing no definite cholelithiasis. Normal diameter common duct. [facility] SITE ID: [id number]
--- NOTE | 2017-06-04 18:11 | MRI Report ---
EXAM: MR ABDOMEN WITHOUT CONTRAST (MR CHOLANGIOPANCREATOGRAPHY) EXAM DATE: 06/04/2017 04:36 PM. CLINICAL HISTORY: Abdominal pain, pancreatitis. COMPARISON: None. TECHNIQUE: The patient was markedly claustrophobic and after initial sequences felt that he could not complete the examination. Therefore, this is a very limited study with 3 sequences performed. FINDINGS: The liver is normal in contour without gross lesion. The spleen, adrenal glands and kidneys are unrem arkable. No gross pancreatic abnormality. Common duct measures 2 mm and is unremarkable. No cholelith iasis or gallbladder wall thickening seen. No dilated bowel within the upper abdomen. Impression: Limited examination showing no definite cholelithiasis. Normal diameter common duct. [facility] Referring Provider Line: [phone] SITE ID: [id number]
[2017-06-05] MEDS: PANTOPRAZOLE 40 MG VIAL IVP SCH (06:01)
[2017-06-05] MEDS: SODIUM CHLORIDE 0.9% 1,000 ML IV SCH (06:01)
[2017-06-05] MEDS: SODIUM CHLORIDE FLUSH 0.9% 10 ML SYRINGE IVP SCH ×2 (06:01→08:10)
[2017-06-05 06:09] LABS: BASOPHILS # (AUTO) 0.1 10^3/uL (0.0-0.1); EOSINOPHILS # (AUTO) 0.4 10^3/uL (0.0-0.7); EOSINOPHILS % (AUTO) 5.4 %; HCT - HEMATOCRIT 38.9 % (42.0-52.0); HGB - HEMOGLOBIN 12.7 g/dL (14.0-18.0); LYMPHOCYTES # (AUTO) 2.4 10^3/uL (1.5-3.5); LYMPHOCYTES % (AUTO) 33.8 %; MEAN CORPUSCULAR HEMOGLOBIN 26.5 pg (27.0-31.0); MEAN CORPUSCULAR HGB CONC 32.6 g/dL (32.0-36.0); MEAN CORPUSCULAR VOLUME 81.4 fL (80.0-94.0); MEAN PLATELET VOLUME 7.7 fL (7.4-11.4); MONOCYTES # (AUTO) 0.9 10^3/uL (0.0-1.0); MONOCYTES % (AUTO) 12.8 %; NEUTROPHILS # (AUTO) 3.4 10^3/uL (1.5-6.6); RED BLOOD COUNT 4.78 10^6/uL (4.70-6.10); RED CELL DISTRIBUTION WIDTH 14.3 % (12.0-15.0); UNCORRECTED WHITE BLOOD COUNT 7.2 x10^3/uL; WHITE BLOOD COUNT 7.2 x10^3/uL (4.8-10.8)
[2017-06-05 06:21] LABS: ALBUMIN/GLOBULIN RATIO 1.6 (1.0-2.2); BILIRUBIN,TOTAL 0.9 mg/dL (0.2-1.0); CALCIUM 8.6 mg/dL (8.5-10.3); CREATININE 0.8 mg/dL (0.6-1.2); POTASSIUM 3.7 mmol/L (3.5-5.0)
[2017-06-05 07:46] VITALS: BP 145/96
[2017-06-05] MEDS: PROCHLORPERAZINE 10 MG/2 ML VIAL IVP PRN (08:10)
--- NOTE | 2017-06-05 10:05 | Discharge Plan ---
Discharge Plan Disposition: 01 Home, Self Care Condition: Stable Prescriptions: Omeprazole 20 mg PO DAILY #10 tablet. Ondansetron HCl [Zofran] 4 mg PO Q6H PRN #15 tablet PRN Reason: Nausea / Vomiting oxyCODONE/ACET 5/325 [Percocet 5 mg/325 mg] 1 tab PO Q8H PRN #10 tablet PRN Reason: Pain Diet: Soft Activity Restrictions: Activity as Tolerated Shower Restrictions: No Driving Restrictions: No Weight Bearing: Full Weight Instruction Topics: DASH Plan Eat Heart Healthy Food, Quit Smoking Get Support , High Blood Pressure, Pancreatitis Chronic Dc Additional Instructions or Follow Up instructions: May follow up PCP in one week, follow up manager biostatistics in two weeks. Follow-Up Care: [facility] - Medical No Smoking: If you smoke, Please STOP! Call for help. Follow-up with: Maximiliano Figueroa MD [Primary Care Provider] -
--- NOTE | 2017-06-05 10:16 | DISCHARGE SUMMARY ---
Discharge Summary Admit Date: 06/02/17 Discharge Date: 06/05/17 Discharging Provider: Villanueva Primary Care Provider: Maximiliano Dupree Condition at Discharge: Stable Discharge Disposition: 01 Home, Self Care Discharge Facility Name: home - DIAGNOSES Admission Diagnoses: (1) Acute on chronic pancreatitis (2) HTN (hypertension) (3) Cigarette smoker (4) Nausea & vomiting (5) Bradycardia Discharge Diagnoses with Status of Each Condition: (1) Acute on chronic pancreatitis stable pain is good control. No nausea or vomiting or diarrhea. Lipase is normal. pt is tolerated solid food. There is no nausea and vomiting after the solid diet (2) HTN (hypertension) stable (3) Cigarette smoker consult with pt for quitting smoking (4) Nausea & vomiting resolved (5) Bradycardia stable, chronic (6) Hematemesis resolved, no more. questionable vomiting of blood. HGB is stable. - HPI History of Present Illness: please refer to my HPI on 06/02/17 as the following: This is a 36-year-old male with a past medical history significance for chronic pancreatitis, current marijuana and cigarette smoker, HTN, who present ER for evaluation of abdominal pain, and nausea and vomiting. Pt is familiar to our service. Pt has recurrent pancreatitis. Pt was advised to follow up his GI doctor but unfortunately pt did not see his GI doctor as far. Pt had similar complain on today, upper epigastric area pain with nausea and vomiting. Pt denies hematemesis. Pt denies alcoholic usage, fever, chill, cough, chest pain, palpation, shortness of breath, headache, diarrhea, dysuria, hematuria, GI bleeding, vision changing. Lab test pt has elevated Lipase to 327. - HOSPITAL COURSE Hospital Course: pt was admitted for acute on chronic pancreatitis with nausea, vomiting and abdominal pain. Pt was treated IVF, NPO, PRN emesis control meds. Pt feel much better, and pt became gradually tolerated to food. Pt, family and nurse report pt had one episode of hematemesis. The blood was washed away by pt's family before I see the blood.Then pt was consulted with surgeon Dr. Powers. pt's HGB is stable. No more nausea and vomiting. Pt had MRCP which show normal common duct, unremarkable pancreases. Dr. Powers agree to release pt today. pt is advised to follow up PCP and GI doctor to evaluate his chronic pancreatitis issue. - ALLERGIES Allergies/Adverse Reactions: Allergies Allergy/AdvReac Type Severity Reaction Status Date / Time No Known Drug Allergies Allergy Verified 06/02/17 09:21 - MEDICATIONS Home Medications: Ambulatory Orders Medication Instructions Recorded Confirmed Omeprazole 20 mg PO DAILY #10 tablet. 06/05/17 Ondansetron HCl [Zofran] 4 mg PO Q6H PRN #15 tablet 06/05/17 oxyCODONE/ACET 5/325 [Percocet 5 1 tab PO Q8H PRN #10 tablet 06/05/17 mg/325 mg] - PHYSICAL EXAM AT DISCHARGE General Appearance: positive: No acute distress, Alert. negative: Lethargic Eyes Bilateral: positive: Normal inspection, PERRL, EOMI, No lid inflammation, Conjunctivae nml ENT: positive: ENT inspection nml, Pharynx nml, No signs of dehydration. negative: Purulent nasal drainage, Pharyngeal erythema, Oral lesions Neck: positive: Nml inspection, Thyroid nml, Trachea midline. negative: Thyromegaly, Lymphadenopathy (R), Lymphadenopathy (L), Stiff neck, Kernig's sign , Carotid bruit, Swelling/bruising, Tracheal deviation Respiratory: positive: Chest non-tender, No respiratory distress, Breath sounds nml. negative: Wheezes, Rales, Rhonchi Cardiovascular: positive: Regular rate & rhythm, No murmur, No gallop. negative : Irregularly irregular, Extrasystoles, Tachycardia, Bradycardia, Systolic murmur, Diastolic murmur Peripheral Pulses: positive: 2+ Abdomen: positive: Non-tender, Nml bowel sounds, No distention. negative: Tenderness, Guarding, Rebound Back: positive: Nml inspection. negative: CVA tenderness (R), CVA tenderness (L ) Skin: positive: Color nml, No rash, Warm, Dry. negative: Cyanosis, Diaphoresis , Pallor, Skin rash Extremities: positive: Non-tender, Full ROM, Nml appearance. negative: Calf tenderness, Joint swelling, Rachell's sign/cords Neurologic/Psychiatric: positive: Oriented x3, Motor nml, Sensation nml, Mood/ affect nml. negative: Weakness, Sensory loss, Facial droop, Slurred/abnml speech, Depressed mood/affect - LABS Result Diagrams: 06/05/17 05:39 06/05/17 05:39 - FOLLOW UP Follow Up: pt is advised to follow up PCP in one week, follow up GI doctor in two weeks. pt is prescribed Zofran PRN, Omeprazole, Percocet.
== END 2017-06-05 11:20 | disposition home or self-care (01) | DRG 439 ==
LOC: EDUNIT# → ED 09:15 → MS2 13:19
PROVIDERS: ADMIT Nurse Practitioner Gerontology; ATTEND Nurse Practitioner Gerontology
DX: K85.80 Other acute pancreatitis without necrosis or infection (principal); K92.0 Hematemesis; K86.1 Other chronic pancreatitis; I10 Essential (primary) hypertension; F17.210 Nicotine dependence, cigarettes, uncomplicated; R00.1 Bradycardia, unspecified; Z72.89 Other problems related to lifestyle; Z79.891 Long term (current) use of opiate analgesic; Z79.899 Other long term (current) drug therapy
CPT/HCPCS: 36415; 74181; 80053; 80320; 81001; 81003; 83690; 85014; 85018; 85025; 87086; 96361; 96365; 96375; 99283; 99284

== ENCOUNTER 2017-06-08 03:15 | Outpatient (CLI) | payer MEDICAID | END 2017-06-08 03:16 | disposition short-term general hospital (02) | LOC: EMS 03:15 | PROVIDERS: ATTEND Surgery | DX: R10.12 Left upper quadrant pain (principal); R11.0 Nausea | CPT/HCPCS: A0425; A0427; A0888 ==

== ENCOUNTER 2017-06-14 08:11 | Outpatient (CLI) | payer MEDICAID | END 2017-06-14 08:12 | disposition critical access hospital (66) | LOC: EMS 08:11 | PROVIDERS: ATTEND Surgery | DX: R10.9 Unspecified abdominal pain (principal); R11.11 Vomiting without nausea; R19.7 Diarrhea, unspecified | CPT/HCPCS: A0425; A0427 ==

== ENCOUNTER 2017-06-14 08:32 | Emergency (ER) | payer MEDICAID ==
[2017-06-14] MEDS ORDERED: HYDROmorphone 1 MG/ML SYRINGE IVP STA (08:41)
[2017-06-14] MEDS ORDERED: SODIUM CHLORIDE 0.9% 1,000 ML IV ONE (08:41)
[2017-06-14] MEDS ORDERED: ONDANSETRON 4 MG/2 ML VIAL IVP STA (08:41)
[2017-06-14] MEDS ORDERED: ONDANSETRON 4 MG/2 ML VIAL ONE (08:51)
[2017-06-14] MEDS ORDERED: HYDROmorphone 1 MG/ML SYRINGE ONE (08:51)
--- NOTE | 2017-06-14 09:07 | ED Physician Documentation ---
PD HPI ABD PAIN - Stated complaint Stated Complaint: ABD PX - Chief complaint Chief Complaint: Abd Pain - History obtained from History obtained from: Patient - History of Present Illness Timing - onset: Today Timing - duration: Hours Timing - details: Abrupt onset, Still present Quality: Aching, Sharp Location: Epigastric Improved by: Vomiting Worsened by: Eating Associated symptoms: Nausea, Vomiting, Diarrhea. No: Fever Similar symptoms before: Diagnosis (pancreatitis) Recently seen: Admitted - Additional information Additional information: 36 y/o male with a history of chronic pancreatitis has recently been admitted to the hospital for pancreatitis and discharged about one week ago. He has been eating solid foods over the past 3 days and last night he had shrimp and pasta and this morning he awoke with pain, nausea and vomiting. Review of Systems Constitutional: reports: Fatigue. denies: Fever, Chills, Myalgias Eyes: denies: Decreased vision Ears: denies: Ear pain Nose: denies: Congestion Throat: denies: Sore throat Cardiac: denies: Chest pain / pressure, Palpitations Respiratory: denies: Dyspnea, Cough GI: reports: Abdominal Pain, Nausea, Vomiting, Diarrhea : denies: Dysuria, Frequency Skin: denies: Rash Musculoskeletal: denies: Neck pain, Back pain, Extremity pain Neurologic: denies: Generalized weakness, Focal weakness, Numbness PD PAST MEDICAL HISTORY - Past Medical History Past Medical History: Yes Cardiovascular: Hypertension Respiratory: None Neuro: None Endocrine/Autoimmune: None GI: Pancreatitis : None HEENT: None Psych: None Musculoskeletal: None Derm: None - Past Surgical History Past Surgical History: Yes Ortho: Other - Present Medications Home Medications: Ambulatory Orders Medication Instructions Recorded Confirmed Omeprazole 20 mg PO DAILY #10 tablet. 06/05/17 Ondansetron HCl [Zofran] 4 mg PO Q6H PRN #15 tablet 06/05/17 oxyCODONE/ACET 5/325 [Percocet 5 1 tab PO Q8H PRN #10 tablet 06/05/17 mg/325 mg] HYDROcod/ACETAM 5/325 [[place] 5/325] 1 - 2 ea PO Q6H PRN #15 tablet 06/14/17 Ondansetron Odt [Zofran] 4 mg TL Q6H PRN #10 tablet 06/14/17 Sucralfate [Carafate] 1 gm PO ACHS #300 ml 06/14/17 - Allergies Allergies/Adverse Reactions: Allergies Allergy/AdvReac Type Severity Reaction Status Date / Time No Known Drug Allergies Allergy Verified 06/02/17 09:21 - Social History Does the pt smoke?: Yes Smoking Status: Current every day smoker Does the pt drink ETOH?: No Does the pt have substance abuse?: Yes - Immunizations Immunizations are current?: No - POLST Patient has POLST: No POLST Status: Full Code PD ED PE NORMAL - Vitals Vital signs reviewed: Yes (normal ) - General General: Alert and oriented X 3, No acute distress, Well developed/nourished - HEENT HEENT: Atraumatic, PERRL, EOMI - Neck Neck: Supple, no meningeal sign, No bony TTP - Cardiac Cardiac: RRR, No murmur - Respiratory Respiratory: No respiratory distress, Clear bilaterally - Abdomen Abdomen: Other (The abdomen is firm and tender in the epigastrium) - Back Back: No CVA TTP, No spinal TTP - Derm Derm: Normal color, Warm and dry, No rash - Extremities Extremities: No deformity, No edema - Neuro Neuro: Alert and oriented X 3, 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, No motor deficit, No sensory deficit, Normal speech Eye Opening: Spontaneous Motor: Obeys Commands Verbal: Oriented GCS Score: 15 - Psych Psych: Normal mood, Normal affect Results - Vitals Vitals: Vital Signs - 24 hr 06/14/17 06/14/17 06/14/17 08:37 09:18 10:03 Temperature 36.5 C 36.2 C L Heart Rate 55 L 45 L 43 L Respiratory 16 15 14 Rate Blood Pressure 124/72 114/57 L 102/55 L O2 Saturation 97 97 97 Oxygen O2 Source Room air - Labs Labs: Laboratory Tests 06/14/17 06/14/17 06/14/17 08:58 08:58 08:58 WBC 5.2 RBC 4.75 Hgb 12.7 L Hct 38.0 L MCV 80.0 MCH 26.7 L MCHC 33.4 RDW 14.4 Plt Count 294 MPV 7.0 L Neut # 3.3 Lymph # 1.1 L Perry # 0.5 Eos # 0.2 Baso # 0.0 Absolute Nucleated RBC 0.00 Nucleated RBC % 0.0 Sodium 139 Potassium 4.0 Chloride 106 Carbon Dioxide 24 Anion Gap 9.0 BUN 15 Creatinine 0.8 Estimated GFR (MDRD) 133 Glucose 97 Calcium 8.7 Total Bilirubin 0.7 AST 24 ALT 30 Alkaline Phosphatase 62 Troponin I < 0.04 Total Protein 6.6 L Albumin 4.0 Globulin 2.6 Albumin/Globulin Ratio 1.5 Lipase 30 Ethyl Alcohol < 5.0 PD MEDICAL DECISION MAKING - ED course Complexity details: reviewed old records, reviewed results, re-evaluated patient , considered differential, d/w patient ED course: 36-year-old male with a history of chronic pancreatitis has had a recent exacerbation with lipase is up to 327 and he has returned from the hospital about a week ago has had symptoms again beginning this morning with vomiting and abdominal pain. Here in the emergency department he is administered Dilaudid and Zofran with improvement in his pain his lipase is normal this morning. Departure - Departure Disposition: 01 Home, Self Care Clinical Impression: Gastritis Qualifiers: Gastritis type: unspecified gastritis Chronicity: acute Gastritis bleeding: without bleeding Qualified Code(s): K29.00 - Acute gastritis without bleeding Condition: Stable Instructions: ED PUD Vs Gastritis Follow-Up: Brittny Rainey PA-C [Provider Admit Priv/Credential] - Prescriptions: HYDROcod/ACETAM 5/325 [[place] 5/325] 1 - 2 ea PO Q6H PRN #15 tablet PRN Reason: Pain Ondansetron Odt [Zofran] 4 mg TL Q6H PRN #10 tablet PRN Reason: Nausea / Vomiting Sucralfate [Carafate] 1 gm PO ACHS #300 ml
[2017-06-14 09:08] LABS: BASOPHILS % (AUTO) 0.9 %; EOSINOPHILS # (AUTO) 0.2 10^3/uL (0.0-0.7); EOSINOPHILS % (AUTO) 3.2 %; HGB - HEMOGLOBIN 12.7 g/dL (14.0-18.0); LYMPHOCYTES # (AUTO) 1.1 10^3/uL (1.5-3.5); LYMPHOCYTES % (AUTO) 21.5 %; MEAN CORPUSCULAR HEMOGLOBIN 26.7 pg (27.0-31.0); MEAN CORPUSCULAR HGB CONC 33.4 g/dL (32.0-36.0); MONOCYTES # (AUTO) 0.5 10^3/uL (0.0-1.0); MONOCYTES % (AUTO) 10.6 %; NEUTROPHILS # (AUTO) 3.3 10^3/uL (1.5-6.6); NEUTROPHILS % (AUTO) 63.8 %; RED BLOOD COUNT 4.75 10^6/uL (4.70-6.10); RED CELL DISTRIBUTION WIDTH 14.4 % (12.0-15.0); UNCORRECTED WHITE BLOOD COUNT 5.2 x10^3/uL; WHITE BLOOD COUNT 5.2 x10^3/uL (4.8-10.8)
[2017-06-14 09:33] LABS: ALBUMIN/GLOBULIN RATIO 1.5 (1.0-2.2); BILIRUBIN,TOTAL 0.7 mg/dL (0.2-1.0); BUN - BLOOD UREA NITROGEN 15 mg/dL (6-20); CALCIUM 8.7 mg/dL (8.5-10.3); CARBON DIOXIDE - CO2 24 mmol/L (21-32); CHLORIDE 106 mmol/L (101-111); CREATININE 0.8 mg/dL (0.6-1.2); GFR - MDRD 133 (>89); GLUCOSE 97 mg/dL (70-100); LIPASE 30 U/L (22-51); SODIUM 139 mmol/L (135-145); TOTAL PROTEIN 6.6 g/dL (6.7-8.2)
[2017-06-14 10:04] VITALS: BP 102/55
== END 2017-06-14 10:44 | disposition home or self-care (01) ==
LOC: EDUNIT# → ED 08:32
DX: K29.00 Acute gastritis without bleeding (principal); I10 Essential (primary) hypertension; F17.200 Nicotine dependence, unspecified, uncomplicated
CPT/HCPCS: 36415; 80053; 80320; 83690; 84484; 85025; 96361; 96374; 96375; 99283; 99284; J1170

== ENCOUNTER 2017-06-18 10:36 | Outpatient (CLI) | payer MEDICAID | END 2017-06-18 10:37 | disposition critical access hospital (66) | LOC: EMS 10:36 | PROVIDERS: ATTEND Surgery | DX: R10.9 Unspecified abdominal pain (principal) | CPT/HCPCS: A0425; A0427 ==

== ENCOUNTER 2017-06-18 10:55 | Emergency (ER) | payer MEDICAID ==
[2017-06-18 11:41] LABS: BASOPHILS % (AUTO) 0.9 %; EOSINOPHILS # (AUTO) 0.2 10^3/uL (0.0-0.7); EOSINOPHILS % (AUTO) 4.2 %; HCT - HEMATOCRIT 38.3 % (42.0-52.0); HGB - HEMOGLOBIN 12.6 g/dL (14.0-18.0); LYMPHOCYTES # (AUTO) 1.5 10^3/uL (1.5-3.5); LYMPHOCYTES % (AUTO) 30.5 %; MEAN CORPUSCULAR HEMOGLOBIN 26.5 pg (27.0-31.0); MEAN CORPUSCULAR VOLUME 80.5 fL (80.0-94.0); MEAN PLATELET VOLUME 7.4 fL (7.4-11.4); MONOCYTES # (AUTO) 0.4 10^3/uL (0.0-1.0); MONOCYTES % (AUTO) 8.7 %; NEUTROPHILS # (AUTO) 2.8 10^3/uL (1.5-6.6); NEUTROPHILS % (AUTO) 55.7 %; RED BLOOD COUNT 4.76 10^6/uL (4.70-6.10); RED CELL DISTRIBUTION WIDTH 14.3 % (12.0-15.0)
[2017-06-18 11:52] LABS: ALBUMIN/GLOBULIN RATIO 1.4 (1.0-2.2); BILIRUBIN,TOTAL 0.4 mg/dL (0.2-1.0); CALCIUM 9.1 mg/dL (8.5-10.3); CREATININE 0.9 mg/dL (0.6-1.2); POTASSIUM 4.1 mmol/L (3.5-5.0); TOTAL PROTEIN 6.8 g/dL (6.7-8.2)
[2017-06-18] MEDS ORDERED: MORPHINE 10 MG/ML VIAL IVP STA (12:12)
[2017-06-18] MEDS ORDERED: PROMETHAZINE INJ 25 MG in SODIUM CHLORIDE 0.9% 50 ML IV STA (12:12)
[2017-06-18] MEDS ORDERED: MAG HYDROX/AL HYDROX/SIMETH 30 ML UDC PO STA (12:33)
[2017-06-18] MEDS ORDERED: LIDOCAINE VISCOUS 2% 15 ML UDC MM STA (12:33)
[2017-06-18] MEDS ORDERED: SUCRALFATE 1 GM/10 ML UDC PO STA (12:33)
[2017-06-18] MEDS ORDERED: SUCRALFATE 1 GM/10 ML UDC ONE ×2 (12:44→13:24)
[2017-06-18] MEDS ORDERED: LIDOCAINE VISCOUS 2% 15 ML UDC MM ONE ×2 (12:45→13:24)
[2017-06-18] MEDS ORDERED: MAG HYDROX/AL HYDROX/SIMETH 30 ML UDC ONE ×2 (12:46→13:24)
[2017-06-18] MEDS ORDERED: PROMETHAZINE 25 MG/1 ML VIAL ONE (12:58)
[2017-06-18] MEDS ORDERED: MORPHINE 10 MG/ML VIAL ONE (12:58)
[2017-06-18] MEDS ORDERED: GI COCKTAIL 120 ML BOTTLE PO ONE (13:00)
[2017-06-18] MEDS ORDERED: diphenhydrAMINE INJ 50 MG/ML VIAL IVP STA (13:33)
--- NOTE | 2017-06-18 13:35 | ED Physician Documentation ---
PD HPI ABD PAIN - Stated complaint Stated Complaint: ABD PX - Chief complaint Chief Complaint: Abd Pain - Additional information Additional information: 36-year-old male with history of recurrent and chronic pancreatitis presents to the emergency department with left upper quadrant abdominal pain. He reports that he has pain every day for over a year.This morning he had vomiting and was unable to tolerate his normal antiemetic and pain control. He reports that he has not followed up with his primary care doctor for several months and his only obtained medications and evaluation in the hospital. He was seen here 3 days ago and prescribed narcotic pain medication to go home with, he does not recall the dose or type.He has had no fevers, denies alcohol use.He was recently admitted to the hospital for pancreatitis within lipase elevated to 300s. Review of Systems Ten Systems: 10 systems reviewed and negative Constitutional: reports: Reviewed and negative. denies: Fever Eyes: reports: Reviewed and negative Ears: reports: Reviewed and negative Nose: reports: Reviewed and negative Throat: reports: Reviewed and negative Cardiac: reports: Reviewed and negative Respiratory: reports: Reviewed and negative GI: reports: Abdominal Pain, Nausea, Vomiting. denies: Hematemesis, Bloody / black stool : reports: Reviewed and negative Skin: reports: Reviewed and negative Musculoskeletal: reports: Reviewed and negative Neurologic: reports: Reviewed and negative Psychiatric: reports: Reviewed and negative Endocrine: reports: Reviewed and negative Immunocompromised: reports: Reviewed and negative PD PAST MEDICAL HISTORY - Past Medical History Past Medical History: Yes Cardiovascular: Hypertension Respiratory: None Neuro: None Endocrine/Autoimmune: None GI: Pancreatitis : None HEENT: None Psych: None Musculoskeletal: None Derm: None - Past Surgical History Past Surgical History: Yes Ortho: Other - Present Medications Home Medications: Ambulatory Orders Medication Instructions Recorded Confirmed Omeprazole 20 mg PO DAILY #10 tablet. 06/05/17 06/18/17 Ondansetron HCl [Zofran] 4 mg PO Q6H PRN #15 tablet 06/05/17 06/18/17 oxyCODONE/ACET 5/325 [Percocet 5 1 tab PO Q8H PRN #10 tablet 06/05/17 06/18/17 mg/325 mg] Sucralfate [Carafate] 1 gm PO ACHS #300 ml 06/14/17 06/18/17 - Allergies Allergies/Adverse Reactions: Allergies Allergy/AdvReac Type Severity Reaction Status Date / Time morphine Allergy Hives Verified 06/18/17 13:30 - Social History Does the pt smoke?: Yes Smoking Status: Current every day smoker Does the pt drink ETOH?: No Does the pt have substance abuse?: Yes - Immunizations Immunizations are current?: No - POLST Patient has POLST: No POLST Status: Full Code PD ED PE NORMAL - Vitals Vital signs reviewed: Yes (bradycardia) - General General: Alert and oriented X 3, No acute distress - HEENT HEENT: PERRL - Neck Neck: Supple, no meningeal sign - Cardiac Cardiac: RRR, No murmur - Respiratory Respiratory: Clear bilaterally - Abdomen Abdomen: Normal bowel sounds, Soft, Non distended - Derm Derm: Warm and dry - Extremities Extremities: No deformity - Neuro Neuro: Alert and oriented X 3 - Psych Psych: Normal mood, Normal affect PD ED PE EXPANDED - Abdomen Abdomen: LUQ (mild TTP, no midline or right sided TTP ) Results - Vitals Vitals: Vital Signs - 24 hr 06/18/17 06/18/17 06/18/17 10:56 11:58 13:03 Temperature 36.6 C 36.9 C Heart Rate 49 L 44 L 41 L Respiratory 20 14 16 Rate Blood Pressure 142/98 H 124/82 H O2 Saturation 99 100 100 06/18/17 06/18/17 06/18/17 13:35 14:02 15:42 Temperature 36.8 C Heart Rate 44 L 38 L Respiratory 15 18 Rate Blood Pressure 124/74 104/60 108/64 O2 Saturation 100 99 Oxygen O2 Source Room air - EKG (time done) 1514 Rate: Jarred (36) Rhythm: Sinus bradycardia [place]: Normal Intervals: Normal SC, QRS normal. No: Prolonged QT Ischemia: ST elevation c/w repol - Labs Labs: Laboratory Tests 06/18/17 06/18/17 06/18/17 11:12 11:12 11:12 WBC 5.0 RBC 4.76 Hgb 12.6 L Hct 38.3 L MCV 80.5 MCH 26.5 L MCHC 33.0 RDW 14.3 Plt Count 306 MPV 7.4 Neut # 2.8 Lymph # 1.5 Bibb # 0.4 Eos # 0.2 Baso # 0.0 Absolute Nucleated RBC 0.00 Nucleated RBC % 0.0 Sodium 140 Potassium 4.1 Chloride 104 Carbon Dioxide 26 Anion Gap 10.0 BUN 17 Creatinine 0.9 Estimated GFR (MDRD) 116 Glucose 107 H Calcium 9.1 Total Bilirubin 0.4 AST 19 ALT 26 Alkaline Phosphatase 63 Troponin I < 0.04 Total Protein 6.8 Albumin 4.0 Globulin 2.8 Albumin/Globulin Ratio 1.4 Lipase 39 Urine Color Urine Clarity Urine pH Ur Specific [place] Urine Protein Urine Glucose (UA) Urine Ketones Urine Occult Blood Urine Nitrite Urine Bilirubin Urine Urobilinogen Ur Leukocyte Esterase Ur Microscopic Review Urine Culture Comments 06/18/17 14:35 WBC RBC Hgb Hct MCV MCH MCHC RDW Plt Count MPV Neut # Lymph # Bib[place] # Eos # Baso # Absolute Nucleated RBC Nucleated RBC % Sodium Potassium Chloride Carbon Dioxide Anion Gap BUN Creatinine Estimated GFR (MDRD) Glucose Calcium Total Bilirubin AST ALT Alkaline Phosphatase Troponin I Total Protein Albumin Globulin Albumin/Globulin Ratio Lipase Urine Color YELLOW Urine Clarity CLEAR Urine pH 7.5 Ur Specific [place] 1.015 Urine Protein NEGATIVE Urine Glucose (UA) NEGATIVE Urine Ketones NEGATIVE Urine Occult Blood NEGATIVE Urine Nitrite NEGATIVE Urine Bilirubin NEGATIVE Urine Urobilinogen 0.2 (NORMAL) Ur Leukocyte Esterase NEGATIVE Ur Microscopic Review NOT INDICATED Urine Culture Comments NOT INDICATED PD MEDICAL DECISION MAKING - ED course Complexity details: reviewed old records, reviewed results, re-evaluated patient , considered differential, d/w patient, d/w family ED course: 36-year-old male with history of chronic abdominal pain and history of pancreatitis presents with exacerbation of chronic pain with vomiting today. Patient is well-appearing, lipase within normal limits. Suspect gastritis or peptic ulcer disease over pancreatitis given location of patient's pain today. His abdominal exam is benign, laboratory workup unrevealing. Patient has had poor follow-up overall, discussed with him that he must follow-up with primary care doctor for ongoing management of his pain and further treatment and testing. 13:34 called to patient's room for hives at IV site after receiving morphine. Patient realizes now that he has had itching after morphine before although did not report this to me when nursing and not on patient's allergy list. He has no symptoms of shortness of breath or oropharyngeal swelling, IV Benadryl ordered 1445: Reevaluated patient, when patient is resting comfortably in bed heart rate in the 40s, with sitting up and talking improves to the 50s. Patient is a young fit and muscular gentleman, suspect lower heart rate due to conditioning, versus medication side effect. Patient will ambulate with assistance and ensure no lightheadedness or dizziness, he is feeling no symptoms when lying in bed. EKG ordered. Improvement in patient's hives although they have not resolved. Discussed with patient and his mother normal laboratory evaluation likely discharge home pending further monitoring given somewhat sleepy after receiving Benadryl in addition to Phenergan and morphine. 1540 Patient sleeping comfortably, ambulating to the bathroom without any lightheadedness or dizziness. On review of patient's records he has had heart rate 40s-50s on previous visits.His pain has resolved and he has tolerated p.o. fluid. EKG with early repolarization ST elevation. However given the patient has had epigastric pain will obtain troponin. Suspect this is patient's young age and fit physical status. Departure - Departure Disposition: 01 Home, Self Care Clinical Impression: Abdominal pain Qualifiers: Abdominal location: left upper quadrant Qualified Code(s): R10.12 - Left upper quadrant pain Vomiting Qualifiers: Vomiting type: unspecified Vomiting Intractability: unspecified Nausea presence : with nausea Qualified Code(s): R11.2 - Nausea with vomiting, unspecified Instructions: ED Nausea Vomiting, ED Abdominal Pain Cause Unkn Male Ch Follow-Up: Maximiliano Figueroa MD [Primary Care Provider] - Comments: We did not find a specific cause for your abdominal pain today, however your labs were normal. Please make an appointment with your primary care doctor for follow-up of your chronic abdominal pain.You may need further workup or a referral to a specialist. Return to the emergency department if you develop vomiting of blood, severe pain , fevers. You were not prescribed any new medications that she just recently received prescriptions for the use. If you need ongoing narcotic pain medications you should Have these prescribed by your primary care doctor only.
[2017-06-18] MEDS ORDERED: diphenhydrAMINE INJ 50 MG/ML VIAL ONE (13:48)
[2017-06-18 14:44] LABS: BILIRUBIN,URINE NEGATIVE (NEGATIVE); PH,URINE 7.5 PH (5.0-7.5)
[2017-06-18 14:45] LABS: UA CHARGE (STRIP ONLY) YES; UR CULTURE IF IND NOT INDICATED
[2017-06-18 15:43] VITALS: BP 108/64
== END 2017-06-18 16:02 | disposition home or self-care (01) ==
LOC: EDUNIT# → ED 10:55
DX: R10.12 Left upper quadrant pain (principal); R11.2 Nausea with vomiting, unspecified; I10 Essential (primary) hypertension; Z86.39 Personal history of other endocrine, nutritional and metabolic disease; F17.200 Nicotine dependence, unspecified, uncomplicated
CPT/HCPCS: 36415; 80053; 81003; 83690; 84484; 85025; 93005; 96365; 96375; 99284; 99285; A9270; J7040; 81001; 87086

== ENCOUNTER 2017-07-14 08:08 | Outpatient (CLI) | payer MEDICAID | END 2017-07-14 08:09 | disposition critical access hospital (66) | LOC: EMS 08:08 | PROVIDERS: ATTEND Surgery | DX: R10.9 Unspecified abdominal pain (principal) | CPT/HCPCS: A0425; A0429 ==

== ENCOUNTER 2017-07-14 08:27 | Emergency (ER) | payer MEDICAID ==
--- NOTE | 2017-07-14 08:46 | ED Physician Documentation ---
PD HPI ABD PAIN - Stated complaint Stated Complaint: ABD PX - Chief complaint Chief Complaint: Abd Pain - History obtained from History obtained from: Patient, EMS - History of Present Illness Timing - onset: Last night Timing - duration: Hours Timing - details: Abrupt onset, Still present Quality: Aching, Sharp, Pain Location: RUQ, Epigastric Improved by: Laying still, Position. No: Eating Worsened by: Eating, Moving, Palpation Associated symptoms: Nausea, Vomiting, Loss of appetite. No: Fever, Hematemesis , Diarrhea, Dysuria, Chest pain Similar symptoms before: Diagnosis (acute on chronic pancreatitis. Recent hospitalization with MRCP showed normal CBD and GB.) Recently seen: Emergency Dept, Admitted Review of Systems Constitutional: denies: Fever, Chills Nose: denies: Rhinorrhea / runny nose, Congestion Throat: denies: Sore throat Respiratory: denies: Cough GI: reports: Abdominal Pain, Nausea, Vomiting. denies: Abdominal Swelling, Diarrhea : denies: Dysuria, Frequency Skin: denies: Rash PD PAST MEDICAL HISTORY - Past Medical History Past Medical History: Yes Cardiovascular: Hypertension Respiratory: None Neuro: None Endocrine/Autoimmune: None GI: Pancreatitis : None HEENT: None Psych: None Musculoskeletal: None Derm: None - Past Surgical History Past Surgical History: Yes Ortho: Other - Present Medications Home Medications: Ambulatory Orders Medication Instructions Recorded Confirmed Omeprazole 20 mg PO DAILY #10 tablet. 06/05/17 07/14/17 Ondansetron HCl [Zofran] 4 mg PO Q6H PRN #15 tablet 06/05/17 07/14/17 oxyCODONE/ACET 5/325 [Percocet 5 1 tab PO Q8H PRN #10 tablet 06/05/17 07/14/17 mg/325 mg] Sucralfate [Carafate] 1 gm PO ACHS #300 ml 06/14/17 07/14/17 Famotidine [Pepcid] 20 mg PO ONCE #30 tablet 07/14/17 Ondansetron HCl [Zofran] 4 mg PO Q6H PRN #20 tablet 07/14/17 Oxycodone HCl/Acetaminophen 1 each PO Q6H PRN #20 tablet 07/14/17 [Percocet 5-325 mg Tablet] Sucralfate 1 gm PO QID #40 tablet 07/14/17 - Allergies Allergies/Adverse Reactions: Allergies Allergy/AdvReac Type Severity Reaction Status Date / Time morphine Allergy Hives Verified 06/18/17 13:30 - Social History Does the pt smoke?: Yes Smoking Status: Current every day smoker Does the pt drink ETOH?: No Does the pt have substance abuse?: Yes - Immunizations Immunizations are current?: No - POLST Patient has POLST: No POLST Status: Full Code PD ED PE NORMAL - Vitals Vital signs reviewed: Yes - General General: Alert and oriented X 3, Well developed/nourished, Other (in significant pain) - HEENT HEENT: PERRL (nonicteric), Pharynx benign - Neck Neck: Supple, no meningeal sign, No adenopathy - Cardiac Cardiac: RRR, No murmur - Respiratory Respiratory: Clear bilaterally - Abdomen Abdomen: Normal bowel sounds, Non distended, No organomegaly, Other (very tender epigastric abdomen to touch, percussion and rebound. Lower abd not tender. ) - Male Male : Deferred - Rectal Rectal: Deferred - Back Back: No CVA TTP - Derm Derm: Normal color, Warm and dry - Extremities Extremities: No tenderness to palpate, Normal ROM s pain - Neuro Neuro: Alert and oriented X 3, No motor deficit, Normal speech - Psych Psych: Normal mood Results - Vitals Vitals: Vital Signs - 24 hr 07/14/17 07/14/17 10:24 11:17 Temperature 36.8 C 36.5 C Heart Rate 45 L 44 L Respiratory 18 18 Rate Blood Pressure 114/70 98/73 O2 Saturation 100 100 Oxygen O2 Source Room air - Labs Labs: Laboratory Tests 07/14/17 07/14/17 08:37 08:37 WBC 5.6 RBC 5.80 Hgb 15.6 Hct 47.0 MCV 81.0 MCH 26.9 L MCHC 33.2 RDW 14.1 Plt Count 269 MPV 7.6 Neut # 2.6 Lymph # 2.2 [place] # 0.6 Eos # 0.2 Baso # 0.1 Absolute Nucleated RBC 0.00 Nucleated RBC % 0.0 Sodium 138 Potassium 3.8 Chloride 102 Carbon Dioxide 25 Anion Gap 11.0 BUN 16 Creatinine 1.0 Estimated GFR (MDRD) 102 Glucose 113 H Calcium 9.9 Total Bilirubin 0.8 AST 31 ALT 52 Alkaline Phosphatase 72 Total Protein 8.0 Albumin 4.8 Globulin 3.2 Albumin/Globulin Ratio 1.5 Lipase 91 H PD MEDICAL DECISION MAKING - ED course Complexity details: re-evaluated patient (numbers are not too high and he has experience of knowing when he can try doing care at home, so I defer to his judgement on it. ), considered differential, d/w patient Departure - Departure Disposition: 01 Home, Self Care Clinical Impression: Acute on chronic pancreatitis Abdominal pain Qualifiers: Abdominal location: epigastric Qualified Code(s): R10.13 - Epigastric pain Gastritis Qualifiers: Gastritis type: unspecified gastritis Chronicity: chronic Gastritis bleeding: without bleeding Qualified Code(s): K29.50 - Unspecified chronic gastritis without bleeding Condition: Stable Record reviewed to determine appropriate education?: Yes Instructions: ED Gastritis, ED Pancreatitis Follow-Up: Maximiliano Figueroa MD [Primary Care Provider] - Prescriptions: Famotidine [Pepcid] 20 mg PO ONCE #30 tablet Ondansetron HCl [Zofran] 4 mg PO Q6H PRN #20 tablet PRN Reason: Nausea / Vomiting Oxycodone HCl/Acetaminophen [Percocet 5-325 mg Tablet] 1 each PO Q6H PRN #20 tablet PRN Reason: Pain Sucralfate 1 gm PO QID #40 tablet Comments: Small frequent fluids. Clear liquid diet for 1-2 days. Use Zofran if needed for nausea and Percocet for pain as needed. Carafate 4 times a day for the next several days to coat the stomach. Famotidine daily to reduce acid production. Recheck if not improved over the next couple of days back to baseline. Discharge Date/Time: 07/14/17 11:17
[2017-07-14] MEDS ORDERED: KETOROLAC 60 MG/2 ML VIAL IVP STA (08:53)
[2017-07-14] MEDS ORDERED: SODIUM CHLORIDE 0.9% 1,000 ML IV ONE (08:53)
[2017-07-14] MEDS ORDERED: ONDANSETRON 4 MG/2 ML VIAL IVP STA (08:53)
[2017-07-14] MEDS ORDERED: HYDROmorphone 1 MG/ML SYRINGE IVP STA ×2 (08:53→09:44)
[2017-07-14 09:04] LABS: BASOPHILS # (AUTO) 0.1 10^3/uL (0.0-0.1); BASOPHILS % (AUTO) 0.9 %; EOSINOPHILS # (AUTO) 0.2 10^3/uL (0.0-0.7); EOSINOPHILS % (AUTO) 3.8 %; HGB - HEMOGLOBIN 15.6 g/dL (14.0-18.0); LYMPHOCYTES # (AUTO) 2.2 10^3/uL (1.5-3.5); LYMPHOCYTES % (AUTO) 38.4 %; MEAN CORPUSCULAR HEMOGLOBIN 26.9 pg (27.0-31.0); MEAN CORPUSCULAR HGB CONC 33.2 g/dL (32.0-36.0); MEAN PLATELET VOLUME 7.6 fL (7.4-11.4); MONOCYTES # (AUTO) 0.6 10^3/uL (0.0-1.0); NEUTROPHILS # (AUTO) 2.6 10^3/uL (1.5-6.6); NEUTROPHILS % (AUTO) 46.9 %; PLT - PLATELET COUNT 269 10^3/uL (130-450); RED CELL DISTRIBUTION WIDTH 14.1 % (12.0-15.0); WHITE BLOOD COUNT 5.6 x10^3/uL (4.8-10.8)
[2017-07-14] MEDS ORDERED: METOCLOPRAMIDE 10 MG/2 ML VIAL IVP STA (09:06)
[2017-07-14 09:16] LABS: ALBUMIN 4.8 g/dL (3.2-5.5); ALBUMIN/GLOBULIN RATIO 1.5 (1.0-2.2); BILIRUBIN,TOTAL 0.8 mg/dL (0.2-1.0); CALCIUM 9.9 mg/dL (8.5-10.3)
[2017-07-14] MEDS ORDERED: PROMETHAZINE INJ 12.5 MG in SODIUM CHLORIDE 0.9% 50 ML IV STA (09:44)
[2017-07-14 11:19] VITALS: BP 98/73
== END 2017-07-14 11:17 | disposition home or self-care (01) ==
LOC: EDUNIT# → ED 08:27
DX: K85.90 Acute pancreatitis without necrosis or infection, unspecified (principal); K86.1 Other chronic pancreatitis; K29.50 Unspecified chronic gastritis without bleeding; I10 Essential (primary) hypertension; F17.200 Nicotine dependence, unspecified, uncomplicated
CPT/HCPCS: 36415; 80053; 83690; 85025; 96365; 96375; 96376; 99284; J1170; J7040

== ENCOUNTER 2017-07-22 09:15 | Outpatient (CLI) | payer MEDICAID | END 2017-07-22 09:16 | disposition critical access hospital (66) | LOC: EMS 09:15 | PROVIDERS: ATTEND Surgery | DX: R10.12 Left upper quadrant pain (principal) | CPT/HCPCS: A0425; A0427 ==

== ENCOUNTER 2017-07-22 09:33 | Emergency (ER) | payer MEDICAID ==
[2017-07-22 11:20] LABS: BASOPHILS % (AUTO) 0.5 %; EOSINOPHILS # (AUTO) 0.1 10^3/uL (0.0-0.7); EOSINOPHILS % (AUTO) 1.4 %; HGB - HEMOGLOBIN 14.6 g/dL (14.0-18.0); LYMPHOCYTES % (AUTO) 14.7 %; MEAN CORPUSCULAR HEMOGLOBIN 26.6 pg (27.0-31.0); MEAN CORPUSCULAR VOLUME 80.4 fL (80.0-94.0); MONOCYTES # (AUTO) 0.6 10^3/uL (0.0-1.0); MONOCYTES % (AUTO) 8.6 %; NEUTROPHILS # (AUTO) 5.1 10^3/uL (1.5-6.6); NEUTROPHILS % (AUTO) 74.8 %; PLT - PLATELET COUNT 264 10^3/uL (130-450); RED BLOOD COUNT 5.49 10^6/uL (4.70-6.10); RED CELL DISTRIBUTION WIDTH 13.6 % (12.0-15.0); WHITE BLOOD COUNT 6.9 x10^3/uL (4.8-10.8)
[2017-07-22 11:33] LABS: ALBUMIN 4.7 g/dL (3.2-5.5); ALBUMIN/GLOBULIN RATIO 1.6 (1.0-2.2); ALKALINE PHOSPHATASE 64 IU/L (42-121); ALT ALANINE AMINOTRANSFERASE 47 IU/L (10-60); AST ASPARTATE AMINOTRANSFERASE 28 IU/L (10-42); BILIRUBIN,TOTAL 0.4 mg/dL (0.2-1.0); BUN - BLOOD UREA NITROGEN 18 mg/dL (6-20); CALCIUM 9.5 mg/dL (8.5-10.3); CARBON DIOXIDE - CO2 28 mmol/L (21-32); CHLORIDE 101 mmol/L (101-111); CREATININE 1.1 mg/dL (0.6-1.2); GFR - MDRD 92 (>89); GLUCOSE 99 mg/dL (70-100); LIPASE 61 U/L (22-51); SODIUM 139 mmol/L (135-145); TOTAL PROTEIN 7.6 g/dL (6.7-8.2)
[2017-07-22] MEDS ORDERED: HYDROmorphone 1 MG/ML SYRINGE IVP STA (11:55)
[2017-07-22] MEDS ORDERED: SODIUM CHLORIDE 0.9% 1,000 ML IV ONE (11:55)
[2017-07-22] MEDS ORDERED: KETOROLAC 60 MG/2 ML VIAL IVP STA (11:55)
[2017-07-22] MEDS ORDERED: ONDANSETRON 4 MG/2 ML VIAL IVP STA (11:55)
--- NOTE | 2017-07-22 11:58 | ED Physician Documentation ---
PD HPI ABD PAIN - Stated complaint Stated Complaint: ABD PX - Chief complaint Chief Complaint: Abd Pain - History obtained from History obtained from: Patient - History of Present Illness Timing - onset: Other (He has recurrent pancreatitis, MRCP 06/03 was nl. EGD was normal. Usual upper abd pain recurred this AM with vomiting. Took carafate, prilosec without relief.) Review of Systems Constitutional: denies: Fever, Chills Cardiac: denies: Chest pain / pressure, Palpitations Respiratory: denies: Dyspnea, Cough GI: reports: Abdominal Pain, Nausea, Vomiting. denies: Diarrhea PD PAST MEDICAL HISTORY - Past Medical History Cardiovascular: Hypertension Respiratory: None Neuro: None Endocrine/Autoimmune: None GI: Pancreatitis : None HEENT: None Psych: None Musculoskeletal: None Derm: None - Past Surgical History Past Surgical History: Yes Ortho: Other - Present Medications Home Medications: Ambulatory Orders Medication Instructions Recorded Confirmed Omeprazole 20 mg PO DAILY #10 tablet. 06/05/17 07/22/17 Ondansetron HCl [Zofran] 4 mg PO Q6H PRN #15 tablet 06/05/17 07/22/17 oxyCODONE/ACET 5/325 [Percocet 5 1 tab PO Q8H PRN #10 tablet 06/05/17 07/22/17 mg/325 mg] Sucralfate [Carafate] 1 gm PO ACHS #300 ml 06/14/17 07/22/17 Famotidine [Pepcid] 20 mg PO ONCE #30 tablet 07/14/17 07/22/17 Ondansetron HCl [Zofran] 4 mg PO Q6H PRN #20 tablet 07/14/17 07/22/17 Oxycodone HCl/Acetaminophen 1 each PO Q6H PRN #20 tablet 07/14/17 07/22/17 [Percocet 5-325 mg Tablet] Sucralfate 1 gm PO QID #40 tablet 07/14/17 07/22/17 Ondansetron HCl [Zofran] 4 mg PO Q6H PRN #10 tablet 07/22/17 Oxycodone HCl/Acetaminophen 1 - 2 tab PO Q4H PRN #15 tablet 07/22/17 [Percocet 5-325 mg Tablet] - Allergies Allergies/Adverse Reactions: Allergies Allergy/AdvReac Type Severity Reaction Status Date / Time morphine Allergy Hives Verified 07/22/17 09:41 - Social History Does the pt smoke?: Yes Smoking Status: Current every day smoker Does the pt drink ETOH?: No Does the pt have substance abuse?: Yes - Immunizations Immunizations are current?: No - POLST Patient has POLST: No POLST Status: Full Code PD ED PE NORMAL - Vitals Vital signs reviewed: Yes - General General: Alert and oriented X 3, No acute distress - Abdomen Abdomen: Normal bowel sounds, Soft, Non tender - Neuro Neuro: Alert and oriented X 3, Normal speech - Psych Psych: Normal mood, Normal affect Results - Vitals Vitals: Vital Signs - 24 hr 07/22/17 09:39 Temperature 35.6 C L Heart Rate 49 L Respiratory 16 Rate Blood Pressure 132/89 H O2 Saturation 98 Oxygen O2 Source Room air - Labs Labs: Laboratory Tests 07/22/17 07/22/17 11:16 11:16 WBC 6.9 RBC 5.49 Hgb 14.6 Hct 44.1 MCV 80.4 MCH 26.6 L MCHC 33.0 RDW 13.6 Plt Count 264 MPV 7.0 L Neut # 5.1 Lymph # 1.0 L [place] # 0.6 Eos # 0.1 Baso # 0.0 Absolute Nucleated RBC 0.00 Nucleated RBC % 0.0 Sodium 139 Potassium 4.2 Chloride 101 Carbon Dioxide 28 Anion Gap 10.0 BUN 18 Creatinine 1.1 Estimated GFR (MDRD) 92 Glucose 99 Calcium 9.5 Total Bilirubin 0.4 AST 28 ALT 47 Alkaline Phosphatase 64 Total Protein 7.6 Albumin 4.7 Globulin 2.9 Albumin/Globulin Ratio 1.6 Lipase 61 H Ethyl Alcohol < 5.0 PD MEDICAL DECISION MAKING - ED course ED course: 36-year-old gentleman with chronic recurrent abdominal pain, felt to be pancreatitis. He does note significant relief with a hot shower and it does not smoke marijuana daily. He felt he would be okay at home after some medications and IV fluids. Departure - Departure Disposition: 01 Home, Self Care Clinical Impression: Acute on chronic pancreatitis Condition: Good Record reviewed to determine appropriate education?: Yes Instructions: Pancreatitis Chronic Dc Prescriptions: Ondansetron HCl [Zofran] 4 mg PO Q6H PRN #10 tablet PRN Reason: Nausea / Vomiting Oxycodone HCl/Acetaminophen [Percocet 5-325 mg Tablet] 1 - 2 tab PO Q4H PRN #15 tablet PRN Reason: Pain Comments: Call your doctor to arrange a follow-up appointment, make the next available appointment. In the interim, return anytime if worse or if new symptoms develop. Your blood pressure was elevated today on check into the emergency department. This does not mean that you have hypertension, it is a common phenomenon to come to the emergency department and have elevated blood pressure. I recommend that you see your primary care physician within the week to have it rechecked when you are feeling better. Do not drink or drive while taking narcotic pain medication. Note that many narcotic pain relievers also contain Tylenol/acetaminophen. Please ensure that your total dose of acetaminophen from all sources does not exceed 3 g (3000 mg) per day. You may get constipated while on this medication. Take a stool softener such as Colace twice a day while you are on it. Also add an [id number] laxative such as senna or MiraLAX on any day that you do not have a bowel movement. If you received a narcotic pain medication or sedative while in the emergency department, do not drive for the next 24 hours.
[2017-07-22 13:36] VITALS: BP 118/80
== END 2017-07-22 13:37 | disposition home or self-care (01) ==
LOC: EDUNIT# → ED 09:33
DX: K86.1 Other chronic pancreatitis (principal); I10 Essential (primary) hypertension; F17.200 Nicotine dependence, unspecified, uncomplicated
CPT/HCPCS: 36415; 80053; 80320; 83690; 85025; 96374; 96375; 99283; 99284; J1170

== ENCOUNTER 2017-07-27 10:24 | Emergency (ER) | payer MEDICAID ==
[2017-07-27 11:19] LABS: BASOPHILS # (AUTO) 0.1 10^3/uL (0.0-0.1); EOSINOPHILS # (AUTO) 0.1 10^3/uL (0.0-0.7); EOSINOPHILS % (AUTO) 2.6 %; HGB - HEMOGLOBIN 15.5 g/dL (14.0-18.0); LYMPHOCYTES % (AUTO) 36.6 %; MEAN CORPUSCULAR HEMOGLOBIN 26.6 pg (27.0-31.0); MEAN CORPUSCULAR HGB CONC 32.9 g/dL (32.0-36.0); MEAN CORPUSCULAR VOLUME 80.8 fL (80.0-94.0); MEAN PLATELET VOLUME 7.5 fL (7.4-11.4); MONOCYTES # (AUTO) 0.5 10^3/uL (0.0-1.0); MONOCYTES % (AUTO) 9.1 %; NEUTROPHILS # (AUTO) 2.8 10^3/uL (1.5-6.6); NEUTROPHILS % (AUTO) 50.7 %; PLT - PLATELET COUNT 289 10^3/uL (130-450); RED BLOOD COUNT 5.82 10^6/uL (4.70-6.10); RED CELL DISTRIBUTION WIDTH 13.8 % (12.0-15.0); WHITE BLOOD COUNT 5.6 x10^3/uL (4.8-10.8)
[2017-07-27 11:32] LABS: ALBUMIN 5.3 g/dL (3.2-5.5); ALBUMIN/GLOBULIN RATIO 1.8 (1.0-2.2); BILIRUBIN,TOTAL 0.7 mg/dL (0.2-1.0); CALCIUM 9.9 mg/dL (8.5-10.3); TOTAL PROTEIN 8.3 g/dL (6.7-8.2)
[2017-07-27 11:36] LABS: BILIRUBIN,URINE NEGATIVE (NEGATIVE); GLUCOSE, URINE (UA) NEGATIVE (NEGATIVE); KETONES,URINE (UA) NEGATIVE (NEGATIVE); LEUKOCYTE ESTERASE, URINE NEGATIVE (NEGATIVE); NITRITE,URINE NEGATIVE (NEGATIVE); OCCULT BLOOD,URINE NEGATIVE (NEGATIVE); PH,URINE 6.5 PH (5.0-7.5); PROTEIN,URINE NEGATIVE (NEGATIVE); UROBILINOGEN,URINE 0.2 (NORMAL) E.U./dL (NORMAL)
[2017-07-27 11:37] LABS: CLARITY,URINE CLEAR (CLEAR)
[2017-07-27] MEDS ORDERED: ACETAMINOPHEN 1,000 MG/100 ML 100 ML IV STA (11:46)
[2017-07-27] MEDS ORDERED: ONDANSETRON 4 MG/2 ML VIAL IVP STA ×2 (11:46→12:38)
[2017-07-27] MEDS ORDERED: FAMOTIDINE 20 MG/2 ML VIAL IVP STA (11:46)
[2017-07-27] MEDS ORDERED: HYDROmorphone 1 MG/ML SYRINGE IVP STA ×2 (12:34→13:33)
--- NOTE | 2017-07-27 12:50 | ED Physician Documentation ---
History of Present Illness - Stated complaint Stated Complaint: ABD PX - Chief complaint Chief Complaint: Abd Pain - Additonal information Additional information: hx from pt hx recurrent pancreatitis - no EtOH no gallstones etiology unclear recently admitted for same had surgical consult and a MRCP he has also had a CTAP (possible colitis) and GB sono (no stones) in the last 3 months to ER with severe mid epigastric pain and NV no diarrhea possible fever no blood in vomit Review of Systems Constitutional: denies: Fever, Chills Cardiac: denies: Chest pain / pressure Respiratory: denies: Dyspnea, Cough GI: reports: Abdominal Pain, Nausea, Vomiting. denies: Diarrhea Endocrine: denies: Easy bruising / bleeding Immunocompromised: denies: Immunocompromised PD PAST MEDICAL HISTORY - Past Medical History Cardiovascular: Hypertension Respiratory: None Neuro: None Endocrine/Autoimmune: None GI: Pancreatitis : None HEENT: None Psych: None Musculoskeletal: None Derm: None - Past Surgical History Past Surgical History: Yes Ortho: Other - Present Medications Home Medications: Ambulatory Orders Medication Instructions Recorded Confirmed Omeprazole 20 mg PO DAILY #10 tablet. 06/05/17 07/27/17 Famotidine [Pepcid] 20 mg PO ONCE #30 tablet 07/14/17 07/27/17 Sucralfate 1 gm PO QID #40 tablet 07/14/17 07/27/17 Ondansetron HCl [Zofran] 4 mg PO Q6H PRN #10 tablet 07/22/17 07/27/17 Oxycodone HCl/Acetaminophen 1 - 2 tab PO Q4H PRN #15 tablet 07/22/17 07/27/17 [Percocet 5-325 mg Tablet] Promethazine [Phenergan] 25 mg PO Q6H PRN #10 tablet 07/27/17 - Allergies Allergies/Adverse Reactions: Allergies Allergy/AdvReac Type Severity Reaction Status Date / Time morphine Allergy Hives Verified 07/27/17 10:49 - Social History Does the pt smoke?: Yes Smoking Status: Current every day smoker Does the pt drink ETOH?: No Does the pt have substance abuse?: Yes - Immunizations Immunizations are current?: No - POLST Patient has POLST: No POLST Status: Full Code PD ED PE NORMAL - Vitals Vital signs reviewed: Yes - General General: Alert and oriented X 3, Other (kneeling on the floor beside his bed vomiting clear yellow green emesis s blood) - HEENT HEENT: PERRL - Neck Neck: Supple, no meningeal sign - Cardiac Cardiac: RRR - Respiratory Respiratory: No respiratory distress, Clear bilaterally - Derm Derm: Normal color - Neuro Neuro: Alert and oriented X 3 - Psych Psych: Other (miserable) Results - Vitals Vitals: Vital Signs - 24 hr 07/27/17 07/27/17 07/27/17 10:34 11:09 12:19 Temperature 36.6 C Heart Rate 56 L 50 L 55 L Respiratory 24 18 Rate Blood Pressure 230/130 H 181/133 H O2 Saturation 97 98 100 07/27/17 07/27/17 07/27/17 12:39 13:49 14:45 Temperature Heart Rate 51 L 59 L 42 L Respiratory 18 20 16 Rate Blood Pressure 211/114 H 202/113 H 127/96 H O2 Saturation 100 99 100 07/27/17 15:15 Temperature Heart Rate 41 L Respiratory 14 Rate Blood Pressure 106/54 L O2 Saturation 100 Oxygen O2 Source Room air - Labs Labs: Laboratory Tests 07/27/17 07/27/17 07/27/17 11:10 11:10 11:15 WBC 5.6 RBC 5.82 Hgb 15.5 Hct 47.0 MCV 80.8 MCH 26.6 L MCHC 32.9 RDW 13.8 Plt Count 289 MPV 7.5 Neut # 2.8 Lymph # 2.0 [place] # 0.5 Eos # 0.1 Baso # 0.1 Absolute Nucleated RBC 0.00 Nucleated RBC % 0.1 Sodium 139 Potassium 3.7 Chloride 102 Carbon Dioxide 21 Anion Gap 16.0 H BUN 13 Creatinine 1.0 Estimated GFR (MDRD) 102 Glucose 113 H Calcium 9.9 Total Bilirubin 0.7 AST 38 ALT 53 Alkaline Phosphatase 77 Total Protein 8.3 H Albumin 5.3 Globulin 3.0 Albumin/Globulin Ratio 1.8 Lipase 37 Urine Color YELLOW Urine Clarity CLEAR Urine pH 6.5 Ur Specific [place] 1.025 Urine Protein NEGATIVE Urine Glucose (UA) NEGATIVE Urine Ketones NEGATIVE Urine Occult Blood NEGATIVE Urine Nitrite NEGATIVE Urine Bilirubin NEGATIVE Urine Urobilinogen 0.2 (NORMAL) Ur Leukocyte Esterase NEGATIVE Ur Microscopic Review NOT INDICATED Urine Culture Comments NOT INDICATED - Rads (name of study) CT AP c IV con Radiology: See rad report (no acute) PD MEDICAL DECISION MAKING - ED course ED course: no pancreatitis today - nl lipase already had sono CT and MRCP recently do not think more imaging necessarily needed today will start by treating symptomatically and reassess pt no better after ofirmev zofran pepcid and then dilaudid further chart review shows prior + THC so perhaps hyperemesis/cyclic vomiting - will try phenergan for vomiitng and also haldol - placed pt on tele to monitor QT after haldol - will image as well CT neg pt much much better after haldol and phenergan no prolonged QT with prolonged monitoring will dc Departure - Departure Disposition: Home, Self Care Clinical Impression: Abdominal pain Qualifiers: Abdominal location: unspecified location Qualified Code(s): R10.9 - Unspecified abdominal pain Cyclical vomiting Qualifiers: Vomiting Intractability: non-intractable Nausea presence: with nausea Qualified Code(s): G43.A0 - Cyclical vomiting, not intractable Condition: Good Instructions: Abdominal Pain Follow-Up: Maximiliano Figueroa MD [Primary Care Provider] - Prescriptions: Promethazine [Phenergan] 25 mg PO Q6H PRN #10 tablet PRN Reason: vomiting Comments: Your labs and CT scan were fine today No pancreatitis, no gallstones or kidney stones, no bowel obstruction/ perforation/infection, no aneurysm or internal bleeding You may have a GI issue called cyclic vomiting - this can be a nervous system problem like migraines, can be due to diabetes, and can be a side effect of marijuana. You did not improve with zofran pepcid, acetaminophen or dilaudid but were significantly better after phenergan and haldol without any adverse side effects - if these symptoms occur again I would recommend using haldol first and phenergan after that if the symptoms persist For today i think it is safe for you to go home - please rest and drink plenty of fluids Forms: Activity restrictions
[2017-07-27] MEDS ORDERED: HALOPERIDOL 5 MG/ML VIAL IVP STA (13:33)
[2017-07-27] MEDS ORDERED: PROMETHAZINE INJ 25 MG in SODIUM CHLORIDE 0.9% 50 ML IV STA (13:33)
[2017-07-27] MEDS ORDERED: IOPAMIDOL-300 100 ML VIAL IVP ONE (14:54)
[2017-07-27] MEDS ORDERED: IOPAMIDOL-300 100 ML VIAL ONE (14:59)
--- NOTE | 2017-07-27 15:15 | CT Report ---
EXAM: CT ABDOMEN AND PELVIS EXAM DATE: 07/27/2017 02:36 PM. CLINICAL HISTORY: Severe abdominal pain. Chronic nausea and vomiting. Pain left side for months. COMPARISONS: CT abdomen and pelvis 04/27/2017. TECHNIQUE: Routine helical CT imaging was performed through the abdomen and pelvis. IV contrast: 100 ML ISOVUE 300. Enteric contrast: No. Reconstructions: Coronal and sagittal. In accordance with CT protocol optimization, one or more of the following dose reduction techniques w ere utilized for this exam: automated exposure control, adjustment of mA and/or KV based on patient s ize, or use of iterative reconstructive technique. FINDINGS: Superior aspect of the abdomen was not imaged. Lung Bases: The visualized portions appear unremarkable. Liver: The visualized portions appear unremarkable. Gallbladder/Bile Ducts: Unremarkable. Spleen: The visualized portions appear unremarkable. Pancreas: Normal. Adrenal Glands: Normal. Kidneys: Visualized portions appear unremarkable. Peritoneal Cavity/Bowel: The visualized portions appear unremarkable. No evidence for bowel obstructi on. No acute bowel findings are seen. Visualized portions of the appendix appear unremarkable. No yovana e fluid or free air. Pelvic Organs: Bladder and remaining pelvic structures appear unremarkable. Vasculature: No acute findings. Bones: Hardware in the right proximal femur is again noted. IMPRESSION: No acute findings are seen. See above. [facility] Referring Provider Line: [phone] SITE ID: [id number]
[2017-07-27 15:16] VITALS: BP 106/54
== END 2017-07-27 16:42 | disposition home or self-care (01) ==
LOC: ED 10:24
DX: G43.A0 Cyclical vomiting, in migraine, not intractable (principal); R10.13 Epigastric pain; Z87.19 Personal history of other diseases of the digestive system; I10 Essential (primary) hypertension; F17.200 Nicotine dependence, unspecified, uncomplicated
CPT/HCPCS: 36415; 74177; 80053; 81003; 83690; 85025; 96365; 96367; 96375; 99283; 99284; J0131; J1170; J7040; Q9967; 81001; 87086

== ENCOUNTER 2017-07-29 13:51 | Outpatient (CLI) | payer MEDICAID ==
[2017-07-29 19:03] LABS: BASOPHILS % (AUTO) 0.8 %; EOSINOPHILS # (AUTO) 0.2 10^3/uL (0.0-0.7); EOSINOPHILS % (AUTO) 3.2 %; HGB - HEMOGLOBIN 13.2 g/dL (14.0-18.0); LYMPHOCYTES # (AUTO) 2.8 10^3/uL (1.5-3.5); LYMPHOCYTES % (AUTO) 48.9 %; MEAN CORPUSCULAR HEMOGLOBIN 26.4 pg (27.0-31.0); MEAN CORPUSCULAR VOLUME 82.3 fL (80.0-94.0); MEAN PLATELET VOLUME 8.7 fL (7.4-11.4); MONOCYTES # (AUTO) 0.6 10^3/uL (0.0-1.0); MONOCYTES % (AUTO) 10.5 %; NEUTROPHILS # (AUTO) 2.1 10^3/uL (1.5-6.6); NEUTROPHILS % (AUTO) 36.6 %; PLT - PLATELET COUNT 261 10^3/uL (130-450); RED BLOOD COUNT 5.01 10^6/uL (4.70-6.10); RED CELL DISTRIBUTION WIDTH 13.8 % (12.0-15.0); WHITE BLOOD COUNT 5.7 x10^3/uL (4.8-10.8)
[2017-07-29 19:11] LABS: ALBUMIN 4.4 g/dL (3.2-5.5); ALBUMIN/GLOBULIN RATIO 1.6 (1.0-2.2); ALKALINE PHOSPHATASE 67 IU/L (42-121); ALT ALANINE AMINOTRANSFERASE 43 IU/L (10-60); AMYLASE 156 U/L (28-100); AST ASPARTATE AMINOTRANSFERASE 25 IU/L (10-42); BILIRUBIN,TOTAL 0.3 mg/dL (0.2-1.0); BUN - BLOOD UREA NITROGEN 22 mg/dL (6-20); CALCIUM 9.1 mg/dL (8.5-10.3); CARBON DIOXIDE - CO2 24 mmol/L (21-32); CHLORIDE 102 mmol/L (101-111); CHOL/HDL RATIO 3.4 (<5.0); CHOLESTEROL 134 mg/dL; GFR - MDRD 102 (>89); GLUCOSE 96 mg/dL (70-100); HDL CHOLESTEROL 39 mg/dL; LDL CHOLESTEROL,CALCULATED 74 mg/dL; LDL/HDL RATIO 1.9 (<3.6); LIPASE 31 U/L (22-51); SODIUM 137 mmol/L (135-145); TOTAL PROTEIN 7.1 g/dL (6.7-8.2); VLDL CHOLESTEROL 21 mg/dL
[2017-07-29 19:22] LABS: THYROID STIMULATING HORMONE 0.17 uIU/mL (0.34-5.60)
== END 2017-07-29 13:52 | disposition home or self-care (01) ==
LOC: LAB.N 13:51
PROVIDERS: ATTEND Nurse Practitioner Gerontology
DX: Z13.9 Encounter for screening, unspecified (principal); R10.9 Unspecified abdominal pain
CPT/HCPCS: 36415; 80050; 80061; 82150; 83690; 83970

== ENCOUNTER 2017-07-31 11:59 | Outpatient (CLI) | payer MEDICAID | END 2017-07-31 12:00 | disposition critical access hospital (66) | LOC: EMS 11:59 | PROVIDERS: ATTEND Surgery | DX: R10.9 Unspecified abdominal pain (principal); R11.2 Nausea with vomiting, unspecified | CPT/HCPCS: A0425; A0427 ==

== ENCOUNTER 2017-07-31 12:21 | Emergency (ER) | payer MEDICAID ==
[2017-07-31] MEDS ORDERED: ONDANSETRON 4 MG/2 ML VIAL IVP STA (12:45)
[2017-07-31] MEDS ORDERED: SODIUM CHLORIDE 0.9% 1,000 ML IV ONE (12:45)
[2017-07-31] MEDS ORDERED: HYDROmorphone 1 MG/ML SYRINGE IVP STA (12:45)
--- NOTE | 2017-07-31 12:49 | ED Physician Documentation ---
PD HPI ABD PAIN - Stated complaint Stated Complaint: ABD PX - Chief complaint Chief Complaint: Abd Pain - History obtained from History obtained from: Patient - History of Present Illness Timing - onset: Other (36-year-old gentleman relatively well-known to this emergency department with recurrent abdominal pain. He has had pancreatitis in the past without clear etiology, he has had a negative abdominal ultrasound and MRCP recently as well as negative CT, also upper endoscopy showing mild gastritis. He does not drink alcohol. He does smoke marijuana, but not daily and his symptoms are not resolved by warm showers. He developed pain last night and tried a liquid diet, Carafate without relief. Pain is now severe and he is vomited a few times without blood. He is also been a little constipated.) Review of Systems Ten Systems: 10 systems reviewed and negative Constitutional: denies: Fever, Chills Cardiac: denies: Chest pain / pressure, Palpitations Respiratory: denies: Dyspnea, Cough GI: reports: Abdominal Pain, Nausea, Vomiting, Constipation. denies: Hematemesis, Bloody / black stool PD PAST MEDICAL HISTORY - Past Medical History Past Medical History: Yes Cardiovascular: Hypertension Respiratory: None Neuro: None Endocrine/Autoimmune: None GI: Pancreatitis : None HEENT: None Psych: None Musculoskeletal: None Derm: None - Past Surgical History Past Surgical History: Yes Ortho: Other - Present Medications Home Medications: Ambulatory Orders Medication Instructions Recorded Confirmed Sucralfate 1 gm PO QID #40 tablet 07/14/17 07/31/17 Ondansetron HCl [Zofran] 4 mg PO Q6H PRN #10 tablet 07/31/17 Oxycodone HCl/Acetaminophen 1 - 2 tab PO Q4H PRN #15 tablet 07/31/17 [Percocet 5-325 mg Tablet] Polyethylene Glycol 3350 [Miralax] 17 gm PO DAILY PRN #1 bottle 07/31/17 - Allergies Allergies/Adverse Reactions: Allergies Allergy/AdvReac Type Severity Reaction Status Date / Time morphine Allergy Hives Verified 07/31/17 12:29 - Social History Does the pt smoke?: Yes Smoking Status: Current every day smoker Does the pt drink ETOH?: No Does the pt have substance abuse?: Yes - Immunizations Immunizations are current?: No - POLST Patient has POLST: No POLST Status: Full Code PD ED PE NORMAL - Vitals Vital signs reviewed: Yes - General General: Alert and oriented X 3, Other (Looks comfortable without overt pain) - Cardiac Cardiac: RRR, No murmur - Respiratory Respiratory: No respiratory distress, Clear bilaterally - Abdomen Abdomen: Normal bowel sounds, Soft, Non tender - Derm Derm: Other (He has superficial phlebitis in the medial right forearm from prior IV placement and the conservative care of this was discussed with him.) - Neuro Neuro: Alert and oriented X 3, Normal speech - Psych Psych: Normal mood, Normal affect Results - Vitals Vitals: Vital Signs - 24 hr 07/31/17 12:23 Heart Rate 59 L Respiratory 16 Rate Blood Pressure 136/88 H O2 Saturation 99 Oxygen O2 Source Room air - Labs Labs: Laboratory Tests 07/31/17 07/31/17 07/31/17 13:00 13:00 13:00 WBC 4.2 L RBC 4.82 Hgb 12.8 L Hct 38.8 L MCV 80.5 MCH 26.5 L MCHC 32.9 RDW 13.7 Plt Count 242 MPV 7.2 L Neut # 2.1 Lymph # 1.5 [place] # 0.3 Eos # 0.2 Baso # 0.0 Absolute Nucleated RBC 0.00 Nucleated RBC % 0.0 Sodium 139 Potassium 3.9 Chloride 106 Carbon Dioxide 23 Anion Gap 10.0 BUN 14 Creatinine 0.8 Estimated GFR (MDRD) 133 Glucose 97 Calcium 8.8 Total Bilirubin 0.3 AST 18 ALT 34 Alkaline Phosphatase 60 Total Protein 6.6 L Albumin 4.0 Globulin 2.6 Albumin/Globulin Ratio 1.5 Lipase 29 Thyroxine (T4) 6.46 Free T3 pg/mL 07/31/17 13:00 WBC RBC Hgb Hct MCV MCH MCHC RDW Plt Count MPV Neut # Lymph # [place] # Eos # Baso # Absolute Nucleated RBC Nucleated RBC % Sodium Potassium Chloride Carbon Dioxide Anion Gap BUN Creatinine Estimated GFR (MDRD) Glucose Calcium Total Bilirubin AST ALT Alkaline Phosphatase Total Protein Albumin Globulin Albumin/Globulin Ratio Lipase Thyroxine (T4) Free T3 pg/mL 3.37 PD MEDICAL DECISION MAKING - ED course ED course: 36-year-old gentleman with recurrent abdominal pain, will be treated as before, I do not see benefit in imaging at this juncture. Of note recent outpatient labs done by his primary care physician showed a low TSH and I will add on T4 and T3. That said I do not think his symptoms are referrable to hyperthyroidism. After single round of medication he was comfortable and almost pain-free and requesting discharge. Departure - Departure Disposition: 01 Home, Self Care Clinical Impression: Gastritis Qualifiers: Gastritis type: unspecified gastritis Chronicity: acute Gastritis bleeding: without bleeding Qualified Code(s): K29.00 - Acute gastritis without bleeding Condition: Good Instructions: ED Gastritis Prescriptions: Ondansetron HCl [Zofran] 4 mg PO Q6H PRN #10 tablet PRN Reason: Nausea / Vomiting Oxycodone HCl/Acetaminophen [Percocet 5-325 mg Tablet] 1 - 2 tab PO Q4H PRN #15 tablet PRN Reason: Pain Polyethylene Glycol 3350 [Miralax] 17 gm PO DAILY PRN #1 bottle PRN Reason: Constipation Comments: Call your doctor to arrange a follow-up appointment, make the next available appointment. In the interim, return anytime if worse or if new symptoms develop. Your blood pressure was elevated today on check into the emergency department. This does not mean that you have hypertension, it is a common phenomenon to come to the emergency department and have elevated blood pressure. I recommend that you see your primary care physician within the week to have it rechecked when you are feeling better.
[2017-07-31 13:06] LABS: BASOPHILS % (AUTO) 0.9 %; EOSINOPHILS # (AUTO) 0.2 10^3/uL (0.0-0.7); HGB - HEMOGLOBIN 12.8 g/dL (14.0-18.0); LYMPHOCYTES # (AUTO) 1.5 10^3/uL (1.5-3.5); LYMPHOCYTES % (AUTO) 35.8 %; MEAN CORPUSCULAR HEMOGLOBIN 26.5 pg (27.0-31.0); MEAN CORPUSCULAR HGB CONC 32.9 g/dL (32.0-36.0); MEAN CORPUSCULAR VOLUME 80.5 fL (80.0-94.0); MEAN PLATELET VOLUME 7.2 fL (7.4-11.4); MONOCYTES # (AUTO) 0.3 10^3/uL (0.0-1.0); MONOCYTES % (AUTO) 8.3 %; NEUTROPHILS # (AUTO) 2.1 10^3/uL (1.5-6.6); PLT - PLATELET COUNT 242 10^3/uL (130-450); RED BLOOD COUNT 4.82 10^6/uL (4.70-6.10); RED CELL DISTRIBUTION WIDTH 13.7 % (12.0-15.0); WHITE BLOOD COUNT 4.2 x10^3/uL (4.8-10.8)
[2017-07-31 13:17] LABS: ALBUMIN/GLOBULIN RATIO 1.5 (1.0-2.2); BILIRUBIN,TOTAL 0.3 mg/dL (0.2-1.0); CALCIUM 8.8 mg/dL (8.5-10.3); CREATININE 0.8 mg/dL (0.6-1.2); TOTAL PROTEIN 6.6 g/dL (6.7-8.2)
[2017-07-31] MEDS ORDERED: MAG HYDROX/AL HYDROX/SIMETH 30 ML UDC PO STA (13:43)
[2017-07-31] MEDS ORDERED: LIDOCAINE VISCOUS 2% 15 ML UDC MM STA (13:43)
[2017-07-31 14:28] VITALS: BP 132/80
== END 2017-07-31 14:17 | disposition home or self-care (01) ==
LOC: EDBD → EDUNIT# → ED 12:21 → SUPCPDRO 12:21 → ED 14:17
DX: K29.00 Acute gastritis without bleeding (principal); I10 Essential (primary) hypertension; Z86.39 Personal history of other endocrine, nutritional and metabolic disease; F12.90 Cannabis use, unspecified, uncomplicated; F17.200 Nicotine dependence, unspecified, uncomplicated
CPT/HCPCS: 36415; 80053; 83690; 84436; 84481; 85025; 96361; 96374; 99283; 99284; A9270; J1170

== ENCOUNTER 2017-08-01 10:02 | Outpatient (CLI) | payer MEDICAID | END 2017-08-01 10:03 | disposition critical access hospital (66) | LOC: EMS 10:02 | PROVIDERS: ATTEND Surgery | DX: R10.9 Unspecified abdominal pain (principal); R11.2 Nausea with vomiting, unspecified | CPT/HCPCS: A0425; A0429 ==

== ENCOUNTER 2017-08-01 10:24 | Emergency (ER) | payer MEDICAID ==
[2017-08-01] MEDS ORDERED: ONDANSETRON 4 MG/2 ML VIAL IVP STA (10:30)
[2017-08-01] MEDS ORDERED: HYDROmorphone 1 MG/ML SYRINGE IVP STA ×2 (10:30→11:03)
[2017-08-01] MEDS ORDERED: SODIUM CHLORIDE 0.9% 1,000 ML IV ONE (10:30)
[2017-08-01] MEDS ORDERED: HALOPERIDOL 5 MG/ML VIAL IM STA (10:32)
[2017-08-01] MEDS ORDERED: PROMETHAZINE INJ 25 MG in SODIUM CHLORIDE 0.9% 50 ML IV STA (10:32)
--- NOTE | 2017-08-01 10:36 | ED Physician Documentation ---
History of Present Illness - Stated complaint Stated Complaint: ABD PX - Chief complaint Chief Complaint: General - Additonal information Additional information: hx from pt 36 y/o male he reports hx recurrent pancreatitis no gallstones, denies EtOH etiology unclear last admit was 06/18 and during that admit he had surgical consult and a neg MRCP he has also had GB sono and CTAP in the last few months I last saw him about a week ago - on that day his sx were same as his prior cases of pancreatitis but he had nl lipase - considered cyclic vomiting given hx TCH use and tried haldol and phenergan with good results pt was seen 2 days ago, txed and released that time as well Review of Systems Constitutional: denies: Fever, Chills Cardiac: denies: Chest pain / pressure Respiratory: denies: Dyspnea GI: reports: Abdominal Pain, Nausea, Vomiting. denies: Diarrhea Endocrine: denies: Easy bruising / bleeding Immunocompromised: denies: Immunocompromised PD PAST MEDICAL HISTORY - Past Medical History Cardiovascular: Hypertension Respiratory: None Neuro: None Endocrine/Autoimmune: None GI: Pancreatitis : None HEENT: None Psych: None Musculoskeletal: None Derm: None - Past Surgical History Past Surgical History: Yes Ortho: Other - Present Medications Home Medications: Ambulatory Orders Medication Instructions Recorded Confirmed Sucralfate 1 gm PO QID #40 tablet 07/14/17 08/01/17 Ondansetron HCl [Zofran] 4 mg PO Q6H PRN #10 tablet 07/31/17 08/01/17 Oxycodone HCl/Acetaminophen 1 - 2 tab PO Q4H PRN #15 tablet 07/31/17 08/01/17 [Percocet 5-325 mg Tablet] Polyethylene Glycol 3350 [Miralax] 17 gm PO DAILY PRN #1 bottle 07/31/17 Promethazine [Phenergan] 25 mg PO Q6H PRN #10 tablet 08/01/17 - Allergies Allergies/Adverse Reactions: Allergies Allergy/AdvReac Type Severity Reaction Status Date / Time morphine Allergy Hives Verified 08/01/17 10:38 - Social History Does the pt smoke?: Yes Smoking Status: Current every day smoker Does the pt drink ETOH?: No Does the pt have substance abuse?: Yes - Immunizations Immunizations are current?: No - POLST Patient has POLST: No POLST Status: Full Code PD ED PE NORMAL - Vitals Vital signs reviewed: Yes - General General: Alert and oriented X 3 - HEENT HEENT: PERRL - Neck Neck: Supple, no meningeal sign - Cardiac Cardiac: RRR - Respiratory Respiratory: No respiratory distress, Clear bilaterally - Abdomen Abdomen: Other (+ BS soft TTP epigastric region s peritoneal signs) - Derm Derm: Normal color - Extremities Extremities: No deformity - Neuro Neuro: Alert and oriented X 3 Results - Vitals Vitals: Vital Signs - 24 hr 08/01/17 08/01/17 08/01/17 10:28 12:38 12:56 Temperature 36.0 C L Heart Rate 47 L 46 L 48 L Respiratory 16 12 18 Rate Blood Pressure 132/86 H 98/56 L 98/56 L O2 Saturation 99 98 98 Oxygen O2 Source Room air - Labs Labs: Laboratory Tests 08/01/17 08/01/17 08/01/17 10:37 10:37 11:10 WBC 4.8 RBC 5.52 Hgb 14.8 Hct 42.1 MCV 76.2 L MCH 26.8 L MCHC 35.1 RDW 13.1 Plt Count 251 MPV 6.8 L Neut # 2.2 Lymph # 1.9 [place] # 0.4 Eos # 0.2 Baso # 0.1 Absolute Nucleated RBC 0.00 Nucleated RBC % 0.1 Sodium 137 Potassium 4.1 Chloride 102 Carbon Dioxide 25 Anion Gap 10.0 BUN 10 Creatinine 0.9 Estimated GFR (MDRD) 116 Glucose 107 H Calcium 9.3 Total Bilirubin 0.5 AST 23 ALT 39 Alkaline Phosphatase 65 Total Protein 7.5 Albumin 4.7 Globulin 2.8 Albumin/Globulin Ratio 1.7 Amylase 153 H Lipase 27 Urine Color Urine Clarity Urine pH Ur Specific [place] Urine Protein Urine Glucose (UA) Urine Ketones Urine Occult Blood Urine Nitrite Urine Bilirubin Urine Urobilinogen Ur Leukocyte Esterase Ur Microscopic Review Urine Culture Comments Urine Opiates Screen NEGATIVE Ur Oxycodone Screen POSITIVE H Urine Methadone Screen NEGATIVE Ur Propoxyphene Screen NEGATIVE Ur Barbiturates Screen NEGATIVE Ur Tricyclics Screen NEGATIVE Ur Phencyclidine Scrn NEGATIVE Ur Amphetamine Screen NEGATIVE U Methamphetamines Scrn NEGATIVE U Benzodiazepines Scrn NEGATIVE Urine Cocaine Screen NEGATIVE U Cannabinoids Screen POSITIVE H 08/01/17 11:10 WBC RBC Hgb Hct MCV MCH MCHC RDW Plt Count MPV Neut # Lymph # [place] # Eos # Baso # Absolute Nucleated RBC Nucleated RBC % Sodium Potassium Chloride Carbon Dioxide Anion Gap BUN Creatinine Estimated GFR (MDRD) Glucose Calcium Total Bilirubin AST ALT Alkaline Phosphatase Total Protein Albumin Globulin Albumin/Globulin Ratio Amylase Lipase Urine Color YELLOW Urine Clarity CLEAR Urine pH 7.5 Ur Specific [place] 1.020 Urine Protein NEGATIVE Urine Glucose (UA) NEGATIVE Urine Ketones NEGATIVE Urine Occult Blood NEGATIVE Urine Nitrite NEGATIVE Urine Bilirubin NEGATIVE Urine Urobilinogen 0.2 (NORMAL) Ur Leukocyte Esterase NEGATIVE Ur Microscopic Review NOT INDICATED Urine Culture Comments NOT INDICATED Urine Opiates Screen Ur Oxycodone Screen Urine Methadone Screen Ur Propoxyphene Screen Ur Barbiturates Screen Ur Tricyclics Screen Ur Phencyclidine Scrn Ur Amphetamine Screen U Methamphetamines Scrn U Benzodiazepines Scrn Urine Cocaine Screen U Cannabinoids Screen PD MEDICAL DECISION MAKING - ED course ED course: pt given haldol and phenergan which worked well last time I saw him but today he had continued sx, so gave a dose mega dilaudid with improvement and was dced - referred to surgery for consideration of scopes Departure - Departure Disposition: Home, Self Care Clinical Impression: Abdominal pain Qualifiers: Abdominal location: upper abdomen, unspecified Qualified Code(s): R10.10 - Upper abdominal pain, unspecified Cyclical vomiting Qualifiers: Vomiting Intractability: non-intractable Nausea presence: with nausea Qualified Code(s): G43.A0 - Cyclical vomiting, not intractable Condition: Good Instructions: ED Abdominal Pain Unkn Cause Follow-Up: Kristin Hansen ARNP [Primary Care Provider] - Charlie Powers MD [Provider Admit Priv/Credential] - Prescriptions: Promethazine [Phenergan] 25 mg PO Q6H PRN #10 tablet PRN Reason: vomiting Comments: Your labs today are fine - the lipase is normal so the problem today does not seem to be pancreatitis. You have had a CT scan, MRCP and ulltrasound here at [facility] recently as well. Those are the tests that can are available from the ER. I'm not certain what else can be done in the ER - but I have referred you to the surgeons for a test called endoscopy to see if a cause can be found. In some patients, marijuana use can cause these symptoms - if you use marijuana it would be useful to stop for at least three months to see if that helps improve the symptoms Discharge Date/Time: 08/01/17 13:10
[2017-08-01 10:49] LABS: BASOPHILS # (AUTO) 0.1 10^3/uL (0.0-0.1); BASOPHILS % (AUTO) 1.2 %; EOSINOPHILS # (AUTO) 0.2 10^3/uL (0.0-0.7); EOSINOPHILS % (AUTO) 4.9 %; HGB - HEMOGLOBIN 14.8 g/dL (14.0-18.0); LYMPHOCYTES # (AUTO) 1.9 10^3/uL (1.5-3.5); LYMPHOCYTES % (AUTO) 40.2 %; MEAN CORPUSCULAR HEMOGLOBIN 26.8 pg (27.0-31.0); MEAN CORPUSCULAR HGB CONC 35.1 g/dL (32.0-36.0); MEAN CORPUSCULAR VOLUME 76.2 fL (80.0-94.0); MEAN PLATELET VOLUME 6.8 fL (7.4-11.4); MONOCYTES # (AUTO) 0.4 10^3/uL (0.0-1.0); MONOCYTES % (AUTO) 8.5 %; NEUTROPHILS # (AUTO) 2.2 10^3/uL (1.5-6.6); NEUTROPHILS % (AUTO) 45.2 %; PLT - PLATELET COUNT 251 10^3/uL (130-450); RED BLOOD COUNT 5.52 10^6/uL (4.70-6.10); RED CELL DISTRIBUTION WIDTH 13.1 % (12.0-15.0); WHITE BLOOD COUNT 4.8 x10^3/uL (4.8-10.8)
[2017-08-01 11:03] LABS: ALBUMIN 4.7 g/dL (3.2-5.5); ALBUMIN/GLOBULIN RATIO 1.7 (1.0-2.2); BILIRUBIN,TOTAL 0.5 mg/dL (0.2-1.0); CALCIUM 9.3 mg/dL (8.5-10.3); CREATININE 0.9 mg/dL (0.6-1.2); TOTAL PROTEIN 7.5 g/dL (6.7-8.2)
[2017-08-01] MEDS ORDERED: HALOPERIDOL 5 MG/ML VIAL ONE (11:05)
[2017-08-01 12:29] LABS: MUDS CUTOFF CONCENTRATIONS CUTOFF CONC BELOW:
[2017-08-01 12:39] VITALS: BP 98/56
[2017-08-01 12:41] LABS: BILIRUBIN,URINE NEGATIVE (NEGATIVE); GLUCOSE, URINE (UA) NEGATIVE (NEGATIVE); KETONES,URINE (UA) NEGATIVE (NEGATIVE); LEUKOCYTE ESTERASE, URINE NEGATIVE (NEGATIVE); NITRITE,URINE NEGATIVE (NEGATIVE); OCCULT BLOOD,URINE NEGATIVE (NEGATIVE); PH,URINE 7.5 PH (5.0-7.5); PROTEIN,URINE NEGATIVE (NEGATIVE); UROBILINOGEN,URINE 0.2 (NORMAL) E.U./dL (NORMAL)
[2017-08-01 12:42] LABS: AMPHETAMINE SCREEN,URINE NEGATIVE (NEGATIVE); BENZODIAZEPINES SCREEN, URINE NEGATIVE (NEGATIVE); COCAINE SCREEN URINE NEGATIVE (NEGATIVE); METHADONE SCREEN, URINE NEGATIVE (NEGATIVE); METHAMPHETAMINES SCREEN, URINE NEGATIVE (NEGATIVE); OPIATE SCREEN, URINE NEGATIVE (NEGATIVE); OXYCODONE SCREEN, URINE POSITIVE (NEGATIVE); PROPOXYPHENE SCREEN, URINE NEGATIVE (NEGATIVE); TRICYCLIC ANTIDEPRESSANT,URINE NEGATIVE (NEGATIVE)
[2017-08-01 12:43] LABS: CLARITY,URINE CLEAR (CLEAR)
== END 2017-08-01 13:10 | disposition home or self-care (01) ==
LOC: EDUNIT# → ED 10:24
DX: G43.A0 Cyclical vomiting, in migraine, not intractable (principal); I10 Essential (primary) hypertension; F17.200 Nicotine dependence, unspecified, uncomplicated
CPT/HCPCS: 36415; 80053; 80306; 81003; 82150; 83690; 85025; 96361; 96365; 96372; 96375; 99283; 99284; J1170; J7040; 81001; 87086

== ENCOUNTER 2017-08-05 14:57 | Outpatient (CLI) | payer MEDICAID | END 2017-08-05 14:58 | disposition home or self-care (01) | LOC: DI 14:57 | PROVIDERS: ATTEND Nurse Practitioner Gerontology | DX: Z53.9 Procedure and treatment not carried out, unspecified reason (principal) ==

== ENCOUNTER 2017-08-06 08:54 | Outpatient (CLI) | payer MEDICAID | END 2017-08-06 08:55 | disposition critical access hospital (66) | LOC: EMS 08:54 | PROVIDERS: ATTEND Surgery | DX: R10.10 Upper abdominal pain, unspecified (principal); R11.2 Nausea with vomiting, unspecified | CPT/HCPCS: A0425; A0427 ==

== ENCOUNTER 2017-08-06 09:11 | Emergency (ER) | payer MEDICAID ==
[2017-08-06] MEDS ORDERED: SODIUM CHLORIDE 0.9% 1,000 ML IV ONE (10:23)
[2017-08-06] MEDS ORDERED: ONDANSETRON 4 MG/2 ML VIAL IVP STA (10:25)
[2017-08-06] MEDS ORDERED: HYDROmorphone 1 MG/ML SYRINGE IVP STA ×2 (10:25→13:40)
--- NOTE | 2017-08-06 10:26 | ED Physician Documentation ---
PD HPI NVD - Stated complaint Stated Complaint: ABD PX - Chief complaint Chief Complaint: Abd Pain - History obtained from History obtained from: Patient - History of Present Illness Timing - onset: Today Timing - duration: Hours Timing - details: Gradual onset, Still present Associated symptoms: Abdominal pain Improved by: Vomiting Worsened by: Moving, Position, Palpation Similar symptoms before: Diagnosis (pancreatitis and cyclical vomiting.) Recently seen: Emergency Dept - Additonal information Additional information: This is the fifth ED visit for this patient this month for nausea and vomiting. He has a history of chronic pancreatitis and has acute pancreatitis with this intermittently and has cyclical vomiting. He does use cannabis. He has been admitted to the hospital 3 times last year. He has had some success with the use of Haldol and Phenergan. He ate some fish last night and feels that may have been what triggered this. Review of Systems Constitutional: denies: Fever Eyes: denies: Decreased vision Ears: denies: Ear pain Nose: denies: Congestion Throat: denies: Sore throat Cardiac: denies: Chest pain / pressure, Palpitations Respiratory: denies: Dyspnea, Cough GI: reports: Abdominal Pain, Nausea, Vomiting : denies: Dysuria, Frequency Skin: denies: Rash, Lesions Musculoskeletal: denies: Neck pain, Back pain, Extremity pain Neurologic: denies: Generalized weakness, Focal weakness PD PAST MEDICAL HISTORY - Past Medical History Past Medical History: Yes Cardiovascular: Hypertension Respiratory: None Neuro: None Endocrine/Autoimmune: None GI: Pancreatitis : None HEENT: None Psych: None Musculoskeletal: None Derm: None - Past Surgical History Past Surgical History: Yes Ortho: Other - Present Medications Home Medications: Ambulatory Orders Medication Instructions Recorded Confirmed Sucralfate 1 gm PO QID #40 tablet 07/14/17 08/06/17 Ondansetron HCl [Zofran] 4 mg PO Q6H PRN #10 tablet 07/31/17 08/06/17 Oxycodone HCl/Acetaminophen 1 - 2 tab PO Q4H PRN #15 tablet 07/31/17 08/06/17 [Percocet 5-325 mg Tablet] Polyethylene Glycol 3350 [Miralax] 17 gm PO DAILY PRN #1 bottle 07/31/17 Promethazine [Phenergan] 25 mg PO Q6H PRN #10 tablet 08/01/17 08/06/17 Lorazepam [Ativan] 1 mg PO Q6HR PRN #15 tablet 08/06/17 Promethazine [Phenergan] 25 mg PO Q6H PRN #20 tablet 08/06/17 - Allergies Allergies/Adverse Reactions: Allergies Allergy/AdvReac Type Severity Reaction Status Date / Time morphine Allergy Hives Verified 08/06/17 09:28 - Social History Does the pt smoke?: Yes Smoking Status: Current every day smoker Does the pt drink ETOH?: No Does the pt have substance abuse?: Yes Substance Use and Type: Marijuana - Immunizations Immunizations are current?: No - POLST Patient has POLST: No POLST Status: Full Code PD ED PE NORMAL - Vitals Vital signs reviewed: Yes (marked hypertension) - General General: Alert and oriented X 3, Well developed/nourished - HEENT HEENT: Atraumatic, PERRL, EOMI - Neck Neck: Supple, no meningeal sign, No bony TTP - Cardiac Cardiac: RRR, No murmur - Respiratory Respiratory: No respiratory distress, Clear bilaterally - Abdomen Abdomen: Soft, Other (epigastric tenderness without garding ) - Back Back: No CVA TTP, No spinal TTP - Derm Derm: Normal color, Warm and dry, No rash - Extremities Extremities: No deformity, No edema - Neuro Neuro: No motor deficit, No sensory deficit Eye Opening: Spontaneous Motor: Obeys Commands Verbal: Oriented GCS Score: 15 Results - Vitals Vitals: Vital Signs - 24 hr 08/06/17 08/06/17 08/06/17 09:14 09:34 10:00 Temperature 36.2 C L Heart Rate 66 60 57 L Respiratory 20 20 20 Rate Blood Pressure 200/130 H 201/112 H 218/123 H O2 Saturation 98 100 08/06/17 08/06/17 08/06/17 10:29 12:00 12:30 Temperature Heart Rate 54 L 64 50 L Respiratory 20 20 16 Rate Blood Pressure 221/114 H 181/106 H 105/62 O2 Saturation 100 99 99 08/06/17 13:11 Temperature Heart Rate 42 L Respiratory 16 Rate Blood Pressure 118/72 O2 Saturation 100 Oxygen O2 Source Room air - Labs Labs: Laboratory Tests 08/06/17 08/06/17 08/06/17 11:35 11:35 11:35 WBC 8.4 RBC 5.53 Hgb 14.8 Hct 44.7 MCV 80.8 MCH 26.8 L MCHC 33.2 RDW 13.6 Plt Count 297 MPV 7.6 Neut # 6.7 H Lymph # 1.1 L [place] # 0.5 Eos # 0.1 Baso # 0.1 Absolute Nucleated RBC 0.00 Nucleated RBC % 0.0 Sodium 139 Potassium 3.9 Chloride 101 Carbon Dioxide 24 Anion Gap 14.0 H BUN 21 H Creatinine 1.0 Estimated GFR (MDRD) 102 Glucose 119 H Calcium 9.6 Total Bilirubin 0.7 AST 30 ALT 42 Alkaline Phosphatase 67 Troponin I < 0.04 Total Protein 8.3 H Albumin 5.1 Globulin 3.2 Albumin/Globulin Ratio 1.6 Lipase 53 H PD MEDICAL DECISION MAKING - ED course Complexity details: reviewed old records, reviewed results, re-evaluated patient , considered differential, d/w patient, d/w family ED course: 36-year-old male with chronic pancreatitis and episodic abdominal pain and vomiting in a cyclical fashion is a cannabis user and here in the emergency department today he has little luck with multiple doses of antiemetic and pain medication he is eventually given Ativan with Dilaudid with some improvement. He was given an option to come into the hospital and she would like to go home. Departure - Departure Disposition: 01 Home, Self Care Clinical Impression: Cyclical vomiting Qualifiers: Vomiting Intractability: non-intractable Nausea presence: with nausea Qualified Code(s): G43.A0 - Cyclical vomiting, not intractable Condition: Stable Instructions: ED Nausea Vomiting Follow-Up: Kristin Hansen ARNP [Primary Care Provider] - Prescriptions: Lorazepam [Ativan] 1 mg PO Q6HR PRN #15 tablet PRN Reason: anxiety/vomiting Promethazine [Phenergan] 25 mg PO Q6H PRN #20 tablet PRN Reason: vomiting Comments: Today in the Emergency Department your blood pressure was elevated. This can happen from the stress of the visit itself, from a current illness or circumstance or from uncontrolled hypertension. If you take blood pressure medications take your usual mediations, have your blood pressure re-checked in an appropriate setting and follow up any elevation with your primary care doctor.
[2017-08-06] MEDS ORDERED: HALOPERIDOL 5 MG/ML VIAL IVP ONE (11:42)
[2017-08-06] MEDS ORDERED: PROMETHAZINE INJ 25 MG in SODIUM CHLORIDE 0.9% 50 ML IV STA (11:43)
[2017-08-06 11:45] LABS: BASOPHILS # (AUTO) 0.1 10^3/uL (0.0-0.1); BASOPHILS % (AUTO) 0.7 %; EOSINOPHILS # (AUTO) 0.1 10^3/uL (0.0-0.7); EOSINOPHILS % (AUTO) 0.6 %; HGB - HEMOGLOBIN 14.8 g/dL (14.0-18.0); LYMPHOCYTES # (AUTO) 1.1 10^3/uL (1.5-3.5); LYMPHOCYTES % (AUTO) 12.9 %; MEAN CORPUSCULAR HEMOGLOBIN 26.8 pg (27.0-31.0); MEAN CORPUSCULAR HGB CONC 33.2 g/dL (32.0-36.0); MEAN CORPUSCULAR VOLUME 80.8 fL (80.0-94.0); MEAN PLATELET VOLUME 7.6 fL (7.4-11.4); MONOCYTES # (AUTO) 0.5 10^3/uL (0.0-1.0); NEUTROPHILS # (AUTO) 6.7 10^3/uL (1.5-6.6); NEUTROPHILS % (AUTO) 79.8 %; PLT - PLATELET COUNT 297 10^3/uL (130-450); RED BLOOD COUNT 5.53 10^6/uL (4.70-6.10); RED CELL DISTRIBUTION WIDTH 13.6 % (12.0-15.0); WHITE BLOOD COUNT 8.4 x10^3/uL (4.8-10.8)
[2017-08-06 11:57] LABS: ALBUMIN 5.1 g/dL (3.2-5.5); ALBUMIN/GLOBULIN RATIO 1.6 (1.0-2.2); BILIRUBIN,TOTAL 0.7 mg/dL (0.2-1.0); CALCIUM 9.6 mg/dL (8.5-10.3); TOTAL PROTEIN 8.3 g/dL (6.7-8.2)
[2017-08-06] MEDS ORDERED: LORazepam 2 MG/ML VIAL IVP STA (14:01)
[2017-08-06 15:40] VITALS: BP 103/61
== END 2017-08-06 15:20 | disposition home or self-care (01) ==
LOC: EDUNIT# → ED 09:11
DX: K86.1 Other chronic pancreatitis (principal); G43.A0 Cyclical vomiting, in migraine, not intractable; F12.90 Cannabis use, unspecified, uncomplicated; I10 Essential (primary) hypertension; F17.200 Nicotine dependence, unspecified, uncomplicated
CPT/HCPCS: 36415; 80053; 83690; 84484; 85025; 96361; 96365; 96375; 96376; 99283; 99284; J1170; J2060; J7040

== ENCOUNTER 2017-08-07 19:25 | Outpatient (CLI) | payer MEDICAID | END 2017-08-07 19:26 | disposition critical access hospital (66) | LOC: EMS 19:25 | PROVIDERS: ATTEND Surgery | DX: R10.9 Unspecified abdominal pain (principal) | CPT/HCPCS: A0425; A0429 ==

== ENCOUNTER 2017-08-07 19:41 | Emergency (ER) | payer MEDICAID ==
[2017-08-07] MEDS ORDERED: SODIUM CHLORIDE 0.9% 1,000 ML IV ONE (20:17)
[2017-08-07] MEDS ORDERED: ONDANSETRON 4 MG/2 ML VIAL IVP STA (20:17)
[2017-08-07] MEDS ORDERED: fentaNYL 100 MCG/2 ML VIAL IVP STA (20:18)
[2017-08-07 20:24] LABS: BASOPHILS # (AUTO) 0.1 10^3/uL (0.0-0.1); BASOPHILS % (AUTO) 1.5 %; EOSINOPHILS # (AUTO) 0.2 10^3/uL (0.0-0.7); EOSINOPHILS % (AUTO) 2.1 %; HGB - HEMOGLOBIN 15.4 g/dL (14.0-18.0); LYMPHOCYTES # (AUTO) 3.6 10^3/uL (1.5-3.5); LYMPHOCYTES % (AUTO) 38.5 %; MEAN CORPUSCULAR HEMOGLOBIN 26.2 pg (27.0-31.0); MEAN CORPUSCULAR HGB CONC 32.4 g/dL (32.0-36.0); MEAN CORPUSCULAR VOLUME 80.7 fL (80.0-94.0); MEAN PLATELET VOLUME 7.9 fL (7.4-11.4); MONOCYTES # (AUTO) 0.9 10^3/uL (0.0-1.0); MONOCYTES % (AUTO) 9.5 %; NEUTROPHILS # (AUTO) 4.5 10^3/uL (1.5-6.6); NEUTROPHILS % (AUTO) 48.4 %; PLT - PLATELET COUNT 342 10^3/uL (130-450); RED BLOOD COUNT 5.88 10^6/uL (4.70-6.10); RED CELL DISTRIBUTION WIDTH 13.6 % (12.0-15.0); WHITE BLOOD COUNT 9.3 x10^3/uL (4.8-10.8)
[2017-08-07 20:34] LABS: ALBUMIN 5.2 g/dL (3.2-5.5); ALBUMIN/GLOBULIN RATIO 1.7 (1.0-2.2); BILIRUBIN,TOTAL 0.6 mg/dL (0.2-1.0); CALCIUM 9.7 mg/dL (8.5-10.3); CREATININE 1.1 mg/dL (0.6-1.2); MAGNESIUM 2.2 mg/dL (1.7-2.8); PHOSPHORUS 4.3 mg/dL (2.5-4.6); TOTAL PROTEIN 8.2 g/dL (6.7-8.2)
[2017-08-07] MEDS ORDERED: IOPAMIDOL-300 100 ML VIAL ONE (20:45)
[2017-08-07] MEDS ORDERED: IOPAMIDOL-300 100 ML VIAL IVP ONE (21:17)
[2017-08-07 21:45] VITALS: BP 100/64
--- NOTE | 2017-08-07 21:54 | CT Report ---
EXAM: CT ABDOMEN AND PELVIS EXAM DATE: 08/07/2017 09:26 PM. CLINICAL HISTORY: Hx of pancreatitis abd pain, vomiting. COMPARISONS: 07/27/2017 CT. TECHNIQUE: Routine helical CT imaging was performed through the abdomen and pelvis. IV contrast: 100M L ISOVUE 300. Enteric contrast: No. Reconstructions: Coronal and sagittal. In accordance with CT protocol optimization, one or more of the following dose reduction techniques w ere utilized for this exam: automated exposure control, adjustment of mA and/or KV based on patient s ize, or use of iterative reconstructive technique. FINDINGS: Lung Bases: Unremarkable. Liver: Normal. No masses. Gallbladder/Bile Ducts: Unremarkable. Spleen: Normal. Pancreas: Normal. Adrenal Glands: Normal. Kidneys: Normal. No masses or hydronephrosis. Peritoneal Cavity/Bowel: Normal. No free fluid, free air or adenopathy. No masses or acute inflammato ry process. The appendix is not well-visualized however no right lower quadrant inflammatory changes are seen. Pelvic Organs: Normal. The bladder and visualized pelvic organs are within normal limits. Vasculature: No aneurysms or other significant abnormality. Bones: Status post right hip ORIF. No acute bony abnormality. Other: None. IMPRESSION: Normal abdomen and pelvis CT. [facility] Referring Provider Line: [phone] SITE ID: [id number]
--- NOTE | 2017-08-07 22:07 | ED Physician Documentation ---
PD HPI ABD PAIN - Stated complaint Stated Complaint: ABD PAIN - Chief complaint Chief Complaint: Abd Pain - History obtained from History obtained from: Patient - History of Present Illness Timing - onset: How many days ago (4) Timing - details: Gradual onset, Still present Quality: Cramping, Aching, Sharp Location: Epigastric Associated symptoms: Nausea, Vomiting Similar symptoms before: Work up / diagnostics, Treatment Recently seen: Emergency Dept - Additional information Additional information: Patient is a 36 year old male with a history of pancreatitis who is presenting to the emergency department for abdominal pain, nausea and vomiting. Patient states that hit has been going on for the last few days. patient states that he has quit drinking. Patient reports that he was in the emergency department yesterday and was diagnosed with a viral syndrome but his symptoms persisted so he came back for re-evaluation. Review of Systems Constitutional: reports: Chills. denies: Fever Eyes: reports: Reviewed and negative Ears: reports: Reviewed and negative Nose: reports: Reviewed and negative Throat: denies: Sore throat Cardiac: denies: Chest pain / pressure Respiratory: denies: Dyspnea, Cough GI: reports: Abdominal Pain, Nausea, Vomiting, Diarrhea : denies: Dysuria, Frequency, Hematuria Skin: denies: Rash, Lesions Musculoskeletal: reports: Back pain Neurologic: reports: Generalized weakness. denies: Focal weakness, Numbness Immunocompromised: denies: Immunocompromised PD PAST MEDICAL HISTORY - Past Medical History Past Medical History: No Cardiovascular: Hypertension Respiratory: None Neuro: None Endocrine/Autoimmune: None GI: Pancreatitis : None HEENT: None Psych: None Musculoskeletal: None Derm: None - Past Surgical History Past Surgical History: Yes Ortho: Other - Present Medications Home Medications: Ambulatory Orders Medication Instructions Recorded Confirmed Ondansetron HCl [Zofran] 4 mg PO Q6H PRN #10 tablet 07/31/17 08/07/17 Promethazine [Phenergan] 25 mg PO Q6H PRN #10 tablet 08/01/17 08/07/17 - Allergies Allergies/Adverse Reactions: Allergies Allergy/AdvReac Type Severity Reaction Status Date / Time morphine Allergy Hives Verified 08/07/17 19:48 - Social History Does the pt smoke?: Yes Smoking Status: Current every day smoker Does the pt drink ETOH?: No Does the pt have substance abuse?: Yes - Immunizations Immunizations are current?: No - POLST Patient has POLST: No POLST Status: Full Code PD ED PE NORMAL - Vitals Vital signs reviewed: Yes - General General: Alert and oriented X 3 - HEENT HEENT: Atraumatic, PERRL - Neck Neck: Supple, no meningeal sign - Cardiac Cardiac: RRR, No murmur - Respiratory Respiratory: No respiratory distress - Derm Derm: Normal color, Warm and dry, No rash - Extremities Extremities: No deformity - Neuro Neuro: Alert and oriented X 3, No motor deficit, No sensory deficit, Normal speech PD ED PE EXPANDED - HEENT HEENT: Dry mucous membranes - Abdomen Abdomen: Tender to palpation, Epigastric. No: Rebound Results - Vitals Vitals: Vital Signs - 24 hr 08/07/17 08/07/17 08/07/17 19:44 20:56 21:45 Temperature 36.6 C Heart Rate 92 57 L 53 L Respiratory 18 18 16 Rate Blood Pressure 186/123 H 174/109 H 100/64 O2 Saturation 98 98 99 Oxygen O2 Source Room air - Labs Labs: Laboratory Tests 08/07/17 08/07/17 08/07/17 20:02 20:02 20:58 WBC 9.3 RBC 5.88 Hgb 15.4 Hct 47.5 MCV 80.7 MCH 26.2 L MCHC 32.4 RDW 13.6 Plt Count 342 MPV 7.9 Neut # 4.5 Lymph # 3.6 H [place] # 0.9 Eos # 0.2 Baso # 0.1 Absolute Nucleated RBC 0.01 Nucleated RBC % 0.1 Sodium 138 Potassium 3.7 Chloride 99 L Carbon Dioxide 25 Anion Gap 14.0 H BUN 26 H Creatinine 1.1 Estimated GFR (MDRD) 92 Glucose 100 Calcium 9.7 Phosphorus 4.3 Magnesium 2.2 Total Bilirubin 0.6 AST 30 ALT 38 Alkaline Phosphatase 67 Total Protein 8.2 Albumin 5.2 Globulin 3.0 Albumin/Globulin Ratio 1.7 Lipase 33 Influenza A (Rapid) Negative Influenza B (Rapid) Negative Influenza Types A,B Ag - - Rads (name of study) ct abdomen and pelvis Radiology: Final report received (no acute intraabdominal pathology) PD MEDICAL DECISION MAKING - ED course Complexity details: reviewed old records, reviewed results, re-evaluated patient , considered differential, d/w patient ED course: Patient was seen and examined at bedside. IV access was gained and labs were drawn. Patient was treated with a fluid bolus and fentanyl. Imaging was ordered. While awaiting imaging patient was found putting his fingers down his throat. Patient was sent for imaging. when patient returned the results were reviewed. there was no acute abnormality. Patient already had zofran at home. patient required no further work up and was stable for discharge with outpatient follow up. Departure - Departure Disposition: Home, Self Care Clinical Impression: Gastritis Condition: Good Instructions: ED Gastritis Follow-Up: Krisitn Hansen ARNP [Primary Care Provider] - As Needed () Comments: Your diagnostics today were within normal limits. there is no abnormality on your blood work or CT. You should continue with the zofran and follow up with your doctor for further evaluation and care.
== END 2017-08-07 22:21 | disposition home or self-care (01) ==
LOC: EDUNIT# → ED 19:41 → SUPCPDRO 19:41 → ED 22:21
DX: K29.70 Gastritis, unspecified, without bleeding (principal); I10 Essential (primary) hypertension; F17.200 Nicotine dependence, unspecified, uncomplicated
CPT/HCPCS: 36415; 74177; 80053; 83690; 83735; 84100; 85025; 87275; 87276; 96361; 96374; 99282; 99284; Q9967

== ENCOUNTER 2017-08-07 22:31 | Emergency (ER) | payer MEDICAID ==
[2017-08-07 22:58] VITALS: BP 191/117
[2017-08-07] MEDS ORDERED: LIDOCAINE VISCOUS 2% 15 ML UDC MM STA (23:10)
[2017-08-07] MEDS ORDERED: PROMETHAZINE 25 MG/1 ML VIAL IM STA (23:10)
[2017-08-07] MEDS ORDERED: FAMOTIDINE 20 MG TABLET PO STA (23:12)
--- NOTE | 2017-08-08 00:41 | ED Physician Documentation ---
PD HPI ABD PAIN - Stated complaint Stated Complaint: VOMITING/ABD PX - Chief complaint Chief Complaint: Abd Pain - History obtained from History obtained from: Patient PD PAST MEDICAL HISTORY - Past Medical History Past Medical History: No Cardiovascular: Hypertension Respiratory: None Neuro: None Endocrine/Autoimmune: None GI: Pancreatitis : None HEENT: None Psych: None Musculoskeletal: None Derm: None - Past Surgical History Past Surgical History: Yes Ortho: Other - Present Medications Home Medications: Ambulatory Orders Medication Instructions Recorded Confirmed Ondansetron HCl [Zofran] 4 mg PO Q6H PRN #10 tablet 07/31/17 08/07/17 Promethazine [Phenergan] 25 mg PO Q6H PRN #10 tablet 08/01/17 08/07/17 - Allergies Allergies/Adverse Reactions: Allergies Allergy/AdvReac Type Severity Reaction Status Date / Time morphine Allergy Hives Verified 08/07/17 19:48 - Social History Does the pt smoke?: Yes Smoking Status: Current every day smoker Does the pt drink ETOH?: No Does the pt have substance abuse?: Yes - Immunizations Immunizations are current?: No - POLST Patient has POLST: No POLST Status: Full Code Results - Vitals Vitals: Vital Signs - 24 hr 08/07/17 22:52 Temperature 37.3 C Heart Rate 80 Respiratory 20 Rate Blood Pressure 191/117 H O2 Saturation 99 Oxygen O2 Source Room air PD MEDICAL DECISION MAKING - ED course Complexity details: reviewed old records ED course: Patient had just been seen and the work up was negative. Patient was not fully evaluated but when told more tests would not be run and that he would not be receiving any narcotics patient became verbally abusive to the staff. Patient walked out without any complete history, physical exam or treatment. Departure - Departure Disposition: Against Medical Advice Clinical Impression: Abdominal pain Condition: Good Discharge Date/Time: 08/07/17 23:24
== END 2017-08-07 23:24 | disposition left against medical advice (07) ==
LOC: ED 22:31
DX: R10.9 Unspecified abdominal pain (principal); I10 Essential (primary) hypertension; F17.200 Nicotine dependence, unspecified, uncomplicated
CPT/HCPCS: 99282

== ENCOUNTER 2017-08-08 00:13 | Outpatient (CLI) | payer MEDICAID | END 2017-08-08 00:14 | disposition short-term general hospital (02) | LOC: EMS 00:13 | PROVIDERS: ATTEND Surgery | DX: R10.9 Unspecified abdominal pain (principal); R11.0 Nausea | CPT/HCPCS: A0425; A0429 ==

== ENCOUNTER 2017-09-09 12:01 | Outpatient (CLI) | payer MEDICAID | END 2017-09-09 12:02 | disposition critical access hospital (66) | LOC: EMS 12:01 | PROVIDERS: ATTEND Surgery | DX: R10.9 Unspecified abdominal pain (principal); R11.0 Nausea | CPT/HCPCS: A0425; A0429 ==

== ENCOUNTER 2017-09-09 12:31 | Emergency (ER) | payer MEDICAID ==
[2017-09-09] MEDS ORDERED: ONDANSETRON 4 MG/2 ML VIAL IVP STA (12:41)
[2017-09-09] MEDS ORDERED: MAG HYDROX/AL HYDROX/SIMETH 30 ML UDC PO STA (12:41)
[2017-09-09] MEDS ORDERED: HYDROmorphone 1 MG/ML SYRINGE IVP STA ×3 (12:41→14:56)
[2017-09-09] MEDS ORDERED: LIDOCAINE VISCOUS 2% 15 ML UDC MM STA (12:41)
--- NOTE | 2017-09-09 12:44 | ED Physician Documentation ---
PD HPI ABD PAIN - Stated complaint Stated Complaint: ABDOMINAL PAIN - History obtained from History obtained from: Patient - History of Present Illness Timing - onset: Today (36-year-old gentleman with recurrent abdominal pain of unclear etiology. He has had thorough testing including multiple CAT scans and ultrasounds without a specific diagnosis. He has also had upper and lower endoscopies showing esophagitis but no Helicobacter pylori. He had an MRCP a couple of months ago that was grossly normal. He is seeing a store warehouse associate , Dr. Miller in [place] without a clear diagnosis either. No meds at home. He been doing okay for the last month or so since his last visit to the emergency department but develops gradual onset upper abdominal pain with vomiting and some diarrhea similar to prior episodes of his recurrent pain. He does smoke marijuana often but not daily and his symptoms are not resolved with a hot shower. He does not have any medications at home to take when he has a flare of his pain.) Review of Systems Ten Systems: 10 systems reviewed and negative Constitutional: denies: Fever, Chills Throat: denies: Sore throat Cardiac: denies: Chest pain / pressure, Palpitations Respiratory: denies: Dyspnea, Cough GI: reports: Abdominal Pain, Nausea, Vomiting, Diarrhea. denies: Constipation, Hematemesis, Bloody / black stool : denies: Dysuria, Frequency PD PAST MEDICAL HISTORY - Past Medical History Cardiovascular: Hypertension Respiratory: None Neuro: None Endocrine/Autoimmune: None GI: Pancreatitis : None HEENT: None Psych: None Musculoskeletal: None Derm: None - Past Surgical History Past Surgical History: Yes Ortho: Other - Present Medications Home Medications: Ambulatory Orders Medication Instructions Recorded Confirmed Ondansetron HCl [Zofran] 4 mg PO Q6H PRN #10 tablet 07/31/17 08/07/17 Promethazine [Phenergan] 25 mg PO Q6H PRN #10 tablet 08/01/17 08/07/17 Ondansetron [Ondansetron Odt] 8 mg PO Q6H PRN #15 tab.rapdis 09/09/17 Oxycodone HCl/Acetaminophen 1 - 2 tab PO Q4H PRN #15 tablet 09/09/17 [Percocet 5-325 mg Tablet] - Allergies Allergies/Adverse Reactions: Allergies Allergy/AdvReac Type Severity Reaction Status Date / Time morphine Allergy Hives Verified 08/07/17 19:48 - Social History Does the pt smoke?: Yes Smoking Status: Current every day smoker Does the pt drink ETOH?: No Does the pt have substance abuse?: Yes - Immunizations Immunizations are current?: No - POLST Patient has POLST: No POLST Status: Full Code PD ED PE NORMAL - Vitals Vital signs reviewed: Yes - General General: Alert and oriented X 3, Other (somewhat uncomfortable) - Cardiac Cardiac: RRR, No murmur - Respiratory Respiratory: No respiratory distress, Clear bilaterally - Abdomen Abdomen: Soft, Other (mild upper abd TTP, no G/R) - Back Back: No CVA TTP - Neuro Neuro: Alert and oriented X 3, Normal speech Results - Vitals Vitals: Vital Signs - 24 hr 09/09/17 09/09/17 12:57 15:45 Temperature 36.1 C L Heart Rate 63 98 Respiratory 20 16 Rate Blood Pressure 199/118 H 107/67 O2 Saturation 99 100 Oxygen O2 Source Room air - Labs Labs: Laboratory Tests 09/09/17 09/09/17 13:29 13:29 WBC 9.5 RBC 5.57 Hgb 14.6 Hct 45.0 MCV 80.7 MCH 26.2 L MCHC 32.4 RDW 13.8 Plt Count 284 MPV 7.8 Neut # 7.2 H Lymph # 1.5 [place] # 0.7 Eos # 0.1 Baso # 0.1 Absolute Nucleated RBC 0.00 Nucleated RBC % 0.0 Sodium 139 Potassium 3.6 Chloride 103 Carbon Dioxide 26 Anion Gap 10.0 BUN 14 Creatinine 0.9 Estimated GFR (MDRD) 116 Glucose 113 H Calcium 9.5 Total Bilirubin 0.6 AST 26 ALT 38 Alkaline Phosphatase 65 Total Protein 7.5 Albumin 4.7 Globulin 2.8 Albumin/Globulin Ratio 1.7 Lipase 104 H PD MEDICAL DECISION MAKING - ED course ED course: 36-year-old gentleman with chronic intermittent abdominal pain of unclear etiology but negative workups in the past. He improved stepwise with medications and requested discharge, on recheck prior to discharge she was completely nontender. Departure - Departure Disposition: 01 Home, Self Care Clinical Impression: Abdominal pain Qualifiers: Abdominal location: generalized Qualified Code(s): R10.84 - Generalized abdominal pain Condition: Good Record reviewed to determine appropriate education?: Yes Instructions: Abdominal Pain Prescriptions: Ondansetron [Ondansetron Odt] 8 mg PO Q6H PRN #15 tab.rapdis PRN Reason: Nausea / Vomiting Oxycodone HCl/Acetaminophen [Percocet 5-325 mg Tablet] 1 - 2 tab PO Q4H PRN #15 tablet PRN Reason: Pain Comments: Call your doctor to arrange a follow-up appointment, make the next available appointment. In the interim, return anytime if worse or if new symptoms develop. Do not drink or drive while taking narcotic pain medication. Note that many narcotic pain relievers also contain Tylenol/acetaminophen. Please ensure that your total dose of acetaminophen from all sources does not exceed 3 g (3000 mg) per day. You may get constipated while on this medication. Take a stool softener such as Colace twice a day while you are on it. Also add an [id number] laxative such as senna or MiraLAX on any day that you do not have a bowel movement. If you received a narcotic pain medication or sedative while in the emergency department, do not drive for the next 24 hours.
[2017-09-09] MEDS ORDERED: PANTOPRAZOLE 40 MG VIAL IVP STA (14:02)
[2017-09-09 14:05] LABS: BASOPHILS # (AUTO) 0.1 10^3/uL (0.0-0.1); BASOPHILS % (AUTO) 0.6 %; EOSINOPHILS # (AUTO) 0.1 10^3/uL (0.0-0.7); EOSINOPHILS % (AUTO) 1.4 %; HGB - HEMOGLOBIN 14.6 g/dL (14.0-18.0); LYMPHOCYTES # (AUTO) 1.5 10^3/uL (1.5-3.5); LYMPHOCYTES % (AUTO) 15.9 %; MEAN CORPUSCULAR HEMOGLOBIN 26.2 pg (27.0-31.0); MEAN CORPUSCULAR HGB CONC 32.4 g/dL (32.0-36.0); MEAN CORPUSCULAR VOLUME 80.7 fL (80.0-94.0); MEAN PLATELET VOLUME 7.8 fL (7.4-11.4); MONOCYTES # (AUTO) 0.7 10^3/uL (0.0-1.0); NEUTROPHILS # (AUTO) 7.2 10^3/uL (1.5-6.6); NEUTROPHILS % (AUTO) 75.1 %; PLT - PLATELET COUNT 284 10^3/uL (130-450); RED BLOOD COUNT 5.57 10^6/uL (4.70-6.10); RED CELL DISTRIBUTION WIDTH 13.8 % (12.0-15.0); WHITE BLOOD COUNT 9.5 x10^3/uL (4.8-10.8)
[2017-09-09 14:20] LABS: ALBUMIN 4.7 g/dL (3.2-5.5); ALBUMIN/GLOBULIN RATIO 1.7 (1.0-2.2); BILIRUBIN,TOTAL 0.6 mg/dL (0.2-1.0); CALCIUM 9.5 mg/dL (8.5-10.3); CREATININE 0.9 mg/dL (0.6-1.2); TOTAL PROTEIN 7.5 g/dL (6.7-8.2)
[2017-09-09 15:46] VITALS: BP 107/67
== END 2017-09-09 15:59 | disposition home or self-care (01) ==
LOC: EDUNIT# → ED 12:31
DX: R10.84 Generalized abdominal pain (principal); I10 Essential (primary) hypertension; F17.200 Nicotine dependence, unspecified, uncomplicated
CPT/HCPCS: 36415; 80053; 83690; 85025; 96374; 96376; 99284; A9270; J1170

== ENCOUNTER 2017-09-15 16:27 | Emergency (ER) | payer MEDICAID ==
[2017-09-15 17:20] LABS: BASOPHILS # (AUTO) 0.1 10^3/uL (0.0-0.1); BASOPHILS % (AUTO) 0.8 %; EOSINOPHILS # (AUTO) 0.1 10^3/uL (0.0-0.7); EOSINOPHILS % (AUTO) 1.5 %; HGB - HEMOGLOBIN 14.7 g/dL (14.0-18.0); LYMPHOCYTES % (AUTO) 23.5 %; MEAN CORPUSCULAR HEMOGLOBIN 26.2 pg (27.0-31.0); MEAN CORPUSCULAR HGB CONC 32.7 g/dL (32.0-36.0); MEAN CORPUSCULAR VOLUME 80.3 fL (80.0-94.0); MEAN PLATELET VOLUME 7.5 fL (7.4-11.4); MONOCYTES # (AUTO) 0.6 10^3/uL (0.0-1.0); MONOCYTES % (AUTO) 7.1 %; NEUTROPHILS # (AUTO) 5.7 10^3/uL (1.5-6.6); NEUTROPHILS % (AUTO) 67.1 %; PLT - PLATELET COUNT 296 10^3/uL (130-450); RED BLOOD COUNT 5.59 10^6/uL (4.70-6.10); RED CELL DISTRIBUTION WIDTH 13.7 % (12.0-15.0); WHITE BLOOD COUNT 8.5 x10^3/uL (4.8-10.8)
[2017-09-15 17:32] LABS: ALBUMIN 5.2 g/dL (3.2-5.5); ALBUMIN/GLOBULIN RATIO 1.6 (1.0-2.2); BILIRUBIN,TOTAL 0.4 mg/dL (0.2-1.0); CALCIUM 9.3 mg/dL (8.5-10.3); TOTAL PROTEIN 8.4 g/dL (6.7-8.2)
[2017-09-15] MEDS ORDERED: HYDROmorphone 1 MG/ML SYRINGE IVP STA ×2 (18:56→20:03)
[2017-09-15] MEDS ORDERED: ONDANSETRON 4 MG/2 ML VIAL IVP STA (18:56)
[2017-09-15] MEDS ORDERED: MAG HYDROX/AL HYDROX/SIMETH 30 ML UDC PO STA (18:57)
[2017-09-15] MEDS ORDERED: PANTOPRAZOLE 40 MG VIAL IVP STA (18:57)
[2017-09-15] MEDS ORDERED: LIDOCAINE VISCOUS 2% 15 ML UDC MM STA (18:57)
--- NOTE | 2017-09-15 18:58 | ED Physician Documentation ---
PD HPI ABD PAIN - Stated complaint Stated Complaint: ABD PX - Chief complaint Chief Complaint: Abd Pain - History obtained from History obtained from: Patient, Family - History of Present Illness Timing - onset: Today (36-year-old gentleman with chronic intermittent upper abdominal pain, he has had pancreatitis in the past of unclear etiology. He does not drink alcohol. Previous evaluations for gallstones and an MRCP a couple of months ago were negative. He had increased pain today associated with vomiting with some bloody tinged vomits. No diarrhea. No fevers.) Review of Systems Ten Systems: 10 systems reviewed and negative Constitutional: denies: Fever, Chills Respiratory: denies: Cough GI: reports: Abdominal Pain, Nausea, Vomiting : denies: Dysuria PD PAST MEDICAL HISTORY - Past Medical History Cardiovascular: Hypertension Respiratory: None Neuro: None Endocrine/Autoimmune: None GI: Pancreatitis : None HEENT: None Psych: None Musculoskeletal: None Derm: None - Past Surgical History Past Surgical History: Yes Ortho: Other - Present Medications Home Medications: Ambulatory Orders Medication Instructions Recorded Confirmed Ondansetron HCl [Zofran] 4 mg PO Q6H PRN #10 tablet 07/31/17 08/07/17 Promethazine [Phenergan] 25 mg PO Q6H PRN #10 tablet 08/01/17 08/07/17 Ondansetron [Ondansetron Odt] 8 mg PO Q6H PRN #15 tab.rapdis 09/09/17 Oxycodone HCl/Acetaminophen 1 - 2 tab PO Q4H PRN #15 tablet 09/09/17 [Percocet 5-325 mg Tablet] Ondansetron HCl [Zofran] 4 mg PO Q6H PRN #10 tablet 09/15/17 Oxycodone HCl/Acetaminophen 1 - 2 tab PO Q4H PRN #7 tablet 09/15/17 [Percocet 5-325 mg Tablet] - Allergies Allergies/Adverse Reactions: Allergies Allergy/AdvReac Type Severity Reaction Status Date / Time morphine Allergy Hives Verified 08/07/17 19:48 - Social History Does the pt smoke?: Yes Smoking Status: Current every day smoker Does the pt drink ETOH?: No Does the pt have substance abuse?: Yes - Immunizations Immunizations are current?: No - POLST Patient has POLST: No POLST Status: Full Code PD ED PE NORMAL - Vitals Vital signs reviewed: Yes - General General: Alert and oriented X 3, Other (Uncomfortable) - HEENT HEENT: PERRL, EOMI - Neck Neck: Supple, no meningeal sign, No bony TTP - Cardiac Cardiac: RRR, No murmur - Respiratory Respiratory: No respiratory distress, Clear bilaterally - Abdomen Abdomen: Other (Mild upper abdominal tenderness, soft with normal bowel tones.) - Back Back: No CVA TTP, No spinal TTP - Derm Derm: Normal color, Warm and dry - Extremities Extremities: No edema, No calf tenderness / cord - Neuro Neuro: Alert and oriented X 3, Normal speech - Psych Psych: Normal mood, Normal affect Results - Vitals Vitals: Vital Signs - 24 hr 09/15/17 09/15/17 09/15/17 16:36 20:26 21:19 Temperature 35.5 C L Heart Rate 58 L 45 L 49 L Respiratory 18 14 16 Rate Blood Pressure 208/122 H 182/109 H 109/81 H O2 Saturation 100 100 100 Oxygen O2 Source Room air - Labs Labs: Laboratory Tests 09/15/17 09/15/17 17:12 17:12 WBC 8.5 RBC 5.59 Hgb 14.7 Hct 44.8 MCV 80.3 MCH 26.2 L MCHC 32.7 RDW 13.7 Plt Count 296 MPV 7.5 Neut # 5.7 Lymph # 2.0 [place] # 0.6 Eos # 0.1 Baso # 0.1 Absolute Nucleated RBC 0.00 Nucleated RBC % 0.0 Sodium 138 Potassium 3.8 Chloride 101 Carbon Dioxide 27 Anion Gap 10.0 BUN 17 Creatinine 1.0 Estimated GFR (MDRD) 102 Glucose 105 H Calcium 9.3 Total Bilirubin 0.4 AST 29 ALT 34 Alkaline Phosphatase 75 Total Protein 8.4 H Albumin 5.2 Globulin 3.2 Albumin/Globulin Ratio 1.6 Lipase 208 H PD MEDICAL DECISION MAKING - ED course ED course: 36-year-old gentleman presents with acute exacerbation of chronic abdominal pain of unclear etiology status post multiple negative workups. He was medicated here with good relief of his symptoms and requested discharge. Departure - Departure Disposition: 01 Home, Self Care Clinical Impression: Acute on chronic pancreatitis Abdominal pain Qualifiers: Abdominal location: epigastric Qualified Code(s): R10.13 - Epigastric pain Condition: Good Record reviewed to determine appropriate education?: Yes Instructions: Abdominal Pain Prescriptions: Ondansetron HCl [Zofran] 4 mg PO Q6H PRN #10 tablet PRN Reason: Nausea / Vomiting Oxycodone HCl/Acetaminophen [Percocet 5-325 mg Tablet] 1 - 2 tab PO Q4H PRN #7 tablet PRN Reason: Pain Comments: I think would be useful for you to meet with your physician come up with a " care plan" to guide emergency department care of your frequent exacerbations of abdominal pain and also to request as needed prescriptions for pain and nausea medicine at home when you have flares.
[2017-09-15] MEDS ORDERED: METOCLOPRAMIDE 10 MG/2 ML VIAL IVP STA (20:04)
[2017-09-15 21:19] VITALS: BP 109/81
[2017-09-15 21:55] LABS: BILIRUBIN,URINE NEGATIVE (NEGATIVE); GLUCOSE, URINE (UA) NEGATIVE (NEGATIVE); KETONES,URINE (UA) TRACE mg/dL (NEGATIVE); LEUKOCYTE ESTERASE, URINE NEGATIVE (NEGATIVE); NITRITE,URINE NEGATIVE (NEGATIVE); OCCULT BLOOD,URINE NEGATIVE (NEGATIVE); PROTEIN,URINE TRACE mg/dL (NEGATIVE); UROBILINOGEN,URINE 0.2 (NORMAL) E.U./dL (NORMAL)
[2017-09-15 21:58] LABS: CLARITY,URINE CLEAR (CLEAR)
== END 2017-09-15 21:40 | disposition home or self-care (01) ==
LOC: ED 16:27
DX: K85.90 Acute pancreatitis without necrosis or infection, unspecified (principal); K86.1 Other chronic pancreatitis; R10.13 Epigastric pain; I10 Essential (primary) hypertension; F17.200 Nicotine dependence, unspecified, uncomplicated
CPT/HCPCS: 36415; 80053; 81003; 83690; 85025; 96374; 96376; 99283; 99284; J1170; J2765; 81001; 87086

== ENCOUNTER 2017-09-16 00:32 | Outpatient (CLI) | payer MEDICAID | END 2017-09-16 00:33 | disposition critical access hospital (66) | LOC: EMS 00:32 | PROVIDERS: ATTEND Surgery | DX: R10.9 Unspecified abdominal pain (principal); R11.2 Nausea with vomiting, unspecified | CPT/HCPCS: A0425; A0427 ==

== ENCOUNTER 2017-09-16 00:51 | Emergency (ER) | payer MEDICAID ==
[2017-09-16] MEDS ORDERED: HYDROmorphone 1 MG/ML SYRINGE IVP STA ×2 (00:54→02:44)
[2017-09-16] MEDS ORDERED: SODIUM CHLORIDE 0.9% 1,000 ML IV ONE ×2 (00:54→02:44)
[2017-09-16] MEDS ORDERED: ONDANSETRON 4 MG/2 ML VIAL IVP STA ×2 (00:56→02:44)
--- NOTE | 2017-09-16 02:41 | ED Physician Documentation ---
PD HPI ABD PAIN - Stated complaint Stated Complaint: Pancreatitis - Chief complaint Chief Complaint: Abd Pain - History obtained from History obtained from: Patient, EMS - History of Present Illness Timing - onset: Today, Chronic Quality: Cramping, Aching Location: Epigastric Worsened by: Eating Similar symptoms before: Work up / diagnostics, Treatment Recently seen: Emergency Dept - Additional information Additional information: Patient is a 36 year old male with multiple ER visits and thorough work up for acute on chronic pancreatitis. Patient does not drink and the etiology of his pancreatitis is unknown. Patient was seen in the emergency department earlier today and did have a slightly elevated lipase. patient was treated with fluids and pain medication and was feeling better upon discharge. patient states that his symptoms came back so he called ems who brought the patient in for evaluation. Review of Systems Constitutional: denies: Fever, Chills Eyes: reports: Reviewed and negative Ears: reports: Reviewed and negative Nose: reports: Reviewed and negative Throat: reports: Reviewed and negative Cardiac: reports: Reviewed and negative Respiratory: reports: Reviewed and negative GI: reports: Abdominal Pain, Nausea, Vomiting : reports: Reviewed and negative Skin: reports: Reviewed and negative Musculoskeletal: reports: Reviewed and negative Neurologic: reports: Reviewed and negative Psychiatric: reports: Reviewed and negative Immunocompromised: denies: Immunocompromised PD PAST MEDICAL HISTORY - Past Medical History Cardiovascular: Hypertension Respiratory: None Neuro: None Endocrine/Autoimmune: None GI: Pancreatitis : None HEENT: None Psych: None Musculoskeletal: None Derm: None - Past Surgical History Past Surgical History: Yes Ortho: Other - Present Medications Home Medications: Ambulatory Orders Medication Instructions Recorded Confirmed Ondansetron HCl [Zofran] 4 mg PO Q6H PRN #10 tablet 07/31/17 08/07/17 Promethazine [Phenergan] 25 mg PO Q6H PRN #10 tablet 08/01/17 08/07/17 Ondansetron [Ondansetron Odt] 8 mg PO Q6H PRN #15 tab.rapdis 09/09/17 Oxycodone HCl/Acetaminophen 1 - 2 tab PO Q4H PRN #15 tablet 09/09/17 [Percocet 5-325 mg Tablet] Ondansetron HCl [Zofran] 4 mg PO Q6H PRN #10 tablet 09/15/17 Oxycodone HCl/Acetaminophen 1 - 2 tab PO Q4H PRN #7 tablet 09/15/17 [Percocet 5-325 mg Tablet] - Allergies Allergies/Adverse Reactions: Allergies Allergy/AdvReac Type Severity Reaction Status Date / Time morphine Allergy Hives Verified 08/07/17 19:48 - Social History Does the pt smoke?: Yes Smoking Status: Current every day smoker Does the pt drink ETOH?: No Does the pt have substance abuse?: Yes - Immunizations Immunizations are current?: No - POLST Patient has POLST: No POLST Status: Full Code PD ED PE NORMAL - Vitals Vital signs reviewed: Yes - General General: Alert and oriented X 3 - HEENT HEENT: Atraumatic - Neck Neck: Supple, no meningeal sign - Cardiac Cardiac: RRR - Respiratory Respiratory: No respiratory distress - Derm Derm: Normal color, No rash - Extremities Extremities: No deformity - Neuro Neuro: Alert and oriented X 3, No motor deficit, Normal speech Eye Opening: Spontaneous Motor: Obeys Commands Verbal: Oriented GCS Score: 15 PD ED PE EXPANDED - General General: Alert, In Pain - HEENT HEENT: Dry mucous membranes - Abdomen Abdomen: Tender to palpation, Epigastric. No: Rebound, Guarding Results - Vitals Vitals: Vital Signs - 24 hr 09/16/17 09/16/17 00:49 04:24 Temperature 36.9 C 36.6 C Heart Rate 58 L 64 Respiratory 18 18 Rate Blood Pressure 155/95 H 128/83 H O2 Saturation 96 96 Oxygen O2 Source Room air PD MEDICAL DECISION MAKING - ED course Complexity details: reviewed old records, reviewed results, re-evaluated patient , considered differential, d/w patient ED course: Patient was seen and examined at bedside IV access was gained and patient was treated with fluids, zofran and dilaudid. Previous results were reviewed. Patient was able to rest comfortable for about and hour. Patient woke up and stated that his came and nausea came back. Patient was treated with additional fluids, dialudid and zofran. Patient responded well to the therapy. Patient had no episodes of vomiting for the 3 hours he was in the emergency department. Patient stated he was feeling better and was stable for discharge and outpatient follow up. Departure - Departure Disposition: 01 Home, Self Care Clinical Impression: Pancreatitis Condition: Good Instructions: Pancreatitis Chronic Dc Follow-Up: Gruenwald,Kristin S, [employer] [Primary Care Provider] - Tomorrow Comments: Your symptoms today are being caused by pancreatitis. You should fill your prescriptions in the morning and follow up with your primary care provider. You may return to the emergency department at any time for new, worsening or uncontrollable symptoms.
[2017-09-16] MEDS ORDERED: ONDANSETRON ODT 4 MG Prepack 2 TL STA (04:04)
[2017-09-16 04:25] VITALS: BP 128/83
== END 2017-09-16 04:26 | disposition home or self-care (01) ==
LOC: EDUNIT# → ED 00:51
DX: K85.90 Acute pancreatitis without necrosis or infection, unspecified (principal); I10 Essential (primary) hypertension; F17.200 Nicotine dependence, unspecified, uncomplicated
CPT/HCPCS: 96361; 96374; 96376; 99283; 99284; J1170

== ENCOUNTER 2017-10-10 11:40 | Outpatient (CLI) | payer MEDICAID | END 2017-10-10 11:41 | disposition critical access hospital (66) | LOC: EMS 11:40 | PROVIDERS: ATTEND Surgery | DX: R10.9 Unspecified abdominal pain (principal) | CPT/HCPCS: A0425; A0427 ==

== ENCOUNTER 2017-10-10 12:03 | Emergency (ER) | payer MEDICAID ==
[2017-10-10 12:38] LABS: BASOPHILS # (AUTO) 0.1 10^3/uL (0.0-0.1); BASOPHILS % (AUTO) 1.1 %; EOSINOPHILS # (AUTO) 0.2 10^3/uL (0.0-0.7); EOSINOPHILS % (AUTO) 2.7 %; HGB - HEMOGLOBIN 13.9 g/dL (14.0-18.0); LYMPHOCYTES # (AUTO) 1.7 10^3/uL (1.5-3.5); LYMPHOCYTES % (AUTO) 28.8 %; MEAN CORPUSCULAR HEMOGLOBIN 26.6 pg (27.0-31.0); MEAN CORPUSCULAR HGB CONC 33.3 g/dL (32.0-36.0); MEAN CORPUSCULAR VOLUME 79.8 fL (80.0-94.0); MEAN PLATELET VOLUME 7.3 fL (7.4-11.4); MONOCYTES # (AUTO) 0.5 10^3/uL (0.0-1.0); MONOCYTES % (AUTO) 8.9 %; NEUTROPHILS # (AUTO) 3.4 10^3/uL (1.5-6.6); NEUTROPHILS % (AUTO) 58.5 %; PLT - PLATELET COUNT 273 10^3/uL (130-450); RED BLOOD COUNT 5.23 10^6/uL (4.70-6.10); RED CELL DISTRIBUTION WIDTH 14.2 % (12.0-15.0); WHITE BLOOD COUNT 5.8 x10^3/uL (4.8-10.8)
[2017-10-10 12:46] LABS: ALBUMIN 4.5 g/dL (3.2-5.5); ALBUMIN/GLOBULIN RATIO 1.6 (1.0-2.2); BILIRUBIN,TOTAL 0.7 mg/dL (0.2-1.0); CALCIUM 9.1 mg/dL (8.5-10.3); CREATININE 0.8 mg/dL (0.6-1.2); TOTAL PROTEIN 7.3 g/dL (6.7-8.2)
[2017-10-10] MEDS ORDERED: ONDANSETRON 4 MG/2 ML VIAL IVP STA (14:19)
[2017-10-10] MEDS ORDERED: HYDROmorphone 1 MG/ML CARPUJECT IVP STA (14:19)
[2017-10-10] MEDS ORDERED: SODIUM CHLORIDE 0.9% 1,000 ML IV ONE (14:20)
--- NOTE | 2017-10-10 15:55 | ED Physician Documentation ---
History of Present Illness - Stated complaint Stated Complaint: PANCREATITIS - Chief complaint Chief Complaint: Abd Pain - History obtained from History obtained from: Patient, Family, EMS - History of Present Illness Timing: Today Pain level max: 8 Pain level now: 6 Improved by: fentanyl Worsened by: eating - Additonal information Additional information: Patient is a 36-year-old male who presents to the emergency department with upper abdominal pain, this is been ongoing since this morning. States this is similar to his past attacks of pancreatitis. States this occurs 3-5 times per month. Being followed by GI with no cause found. He is having vomiting this morning. No fevers. States does not drink alcohol. Statse has had his gallbladder evaluated and does not have gallstones. He also states he does not have hyperlipidemia. No medication changes. Review of Systems Ten Systems: 10 systems reviewed and negative Constitutional: denies: Fever, Chills Ears: denies: Ear pain Nose: denies: Rhinorrhea / runny nose, Congestion Throat: denies: Sore throat Cardiac: denies: Chest pain / pressure Respiratory: denies: Cough GI: reports: Nausea, Vomiting. denies: Diarrhea Skin: denies: Rash Musculoskeletal: denies: Neck pain, Back pain Neurologic: denies: Headache PD PAST MEDICAL HISTORY - Past Medical History Past Medical History: Yes Cardiovascular: Hypertension Respiratory: None Neuro: None Endocrine/Autoimmune: None GI: Pancreatitis : None HEENT: None Psych: None Musculoskeletal: None Derm: None - Past Surgical History Past Surgical History: Yes Ortho: Other - Present Medications Home Medications: Ambulatory Orders Medication Instructions Recorded Confirmed Ondansetron HCl [Zofran] 4 mg PO Q6H PRN #10 tablet 07/31/17 08/07/17 Promethazine [Phenergan] 25 mg PO Q6H PRN #10 tablet 08/01/17 08/07/17 Ondansetron [Ondansetron Odt] 8 mg PO Q6H PRN #15 tab.rapdis 09/09/17 Oxycodone HCl/Acetaminophen 1 - 2 tab PO Q4H PRN #15 tablet 09/09/17 [Percocet 5-325 mg Tablet] Ondansetron HCl [Zofran] 4 mg PO Q6H PRN #10 tablet 09/15/17 Oxycodone HCl/Acetaminophen 1 - 2 tab PO Q4H PRN #7 tablet 09/15/17 [Percocet 5-325 mg Tablet] Ondansetron Odt [Zofran] 4 mg TL Q6H PRN #10 tablet 10/10/17 Oxycodone HCl/Acetaminophen 1 - 2 each PO Q6H PRN #12 tablet 10/10/17 [Percocet 5-325 mg Tablet] - Allergies Allergies/Adverse Reactions: Allergies Allergy/AdvReac Type Severity Reaction Status Date / Time morphine Allergy Hives Verified 08/07/17 19:48 - Social History Does the pt smoke?: Yes Smoking Status: Current every day smoker Does the pt drink ETOH?: No Does the pt have substance abuse?: Yes - Immunizations Immunizations are current?: No - POLST Patient has POLST: No POLST Status: Full Code PD ED PE NORMAL - Vitals Vital signs reviewed: Yes - General General: Alert and oriented X 3, No acute distress - HEENT HEENT: Moist mucous membranes - Neck Neck: Supple, no meningeal sign - Cardiac Cardiac: RRR, Strong equal pulses - Respiratory Respiratory: No respiratory distress, Clear bilaterally - Abdomen Abdomen: Soft, Non distended, Other (Mild tenderness palpation epigastric without peritoneal signs) - Back Back: No spinal TTP - Derm Derm: Warm and dry, No rash - Neuro Neuro: Alert and oriented X 3 - Psych Psych: Normal mood, Normal affect Results - Vitals Vitals: Vital Signs - 24 hr 10/10/17 10/10/17 10/10/17 11:55 14:27 16:06 Temperature 37 C 36.6 C 36.6 C Heart Rate 48 L 45 L 52 L Respiratory 18 16 18 Rate Blood Pressure 132/97 H 109/66 110/59 L O2 Saturation 98 99 100 Oxygen O2 Source Room air - Labs Labs: Laboratory Tests 10/10/17 10/10/17 12:28 12:28 WBC 5.8 RBC 5.23 Hgb 13.9 L Hct 41.7 L MCV 79.8 L MCH 26.6 L MCHC 33.3 RDW 14.2 Plt Count 273 MPV 7.3 L Neut # 3.4 Lymph # 1.7 [place] # 0.5 Eos # 0.2 Baso # 0.1 Absolute Nucleated RBC 0.00 Nucleated RBC % 0.0 Sodium 136 Potassium 3.8 Chloride 104 Carbon Dioxide 25 Anion Gap 7.0 BUN 17 Creatinine 0.8 Estimated GFR (MDRD) 133 Glucose 100 Calcium 9.1 Total Bilirubin 0.7 AST 22 ALT 34 Alkaline Phosphatase 62 Total Protein 7.3 Albumin 4.5 Globulin 2.8 Albumin/Globulin Ratio 1.6 Lipase 29 PD MEDICAL DECISION MAKING - ED course Complexity details: reviewed old records, reviewed results, re-evaluated patient , considered differential, d/w patient ED course: Patient is a 36-year-old gentleman who presents to the emergency department with recurrent epigastric pain consistent with his past history of pancreatitis. Pain well controlled. Tolerating p.o. well. No fevers. Has had extensive workups in the past with no cause found. Tolerating p.o. well here. Will prescribe a small amount of pain and nausea medications for home and follow -up with his PCP. Patient counseled regarding signs and symptoms for which I believe and urgent re-evaluation would be necessary. Patient with good understanding of and agreement to plan and is comfortable going home at this time This document was made in part using voice recognition software. While efforts are made to proofread this document, sound alike and grammatical errors may occur. Departure - Departure Disposition: 01 Home, Self Care Clinical Impression: Pancreatitis, acute Qualifiers: Pancreatitis type: unspecified pancreatitis type Acute pancreatitis complication: unspecified Qualified Code(s): K85.90 - Acute pancreatitis without necrosis or infection, unspecified Condition: Good Instructions: ED Pancreatitis Follow-Up: Kristin Hansen ARNP [Primary Care Provider] - Within 1 week Prescriptions: Ondansetron Odt [Zofran] 4 mg TL Q6H PRN #10 tablet PRN Reason: Nausea / Vomiting Oxycodone HCl/Acetaminophen [Percocet 5-325 mg Tablet] 1 - 2 each PO Q6H PRN # 12 tablet PRN Reason: pain Comments: Return if you worsen. Please follow-up with your doctor for further evaluation and care. Do not drink alcohol or drive while on narcotic pain medicine. Note that many narcotic pain relievers also contain tylenol/acetaminophen. Please ensure that your total dose of acetaminophen from all sources does not exceed 3 grams (3000mg) per day. You may constipated on this medication, take a stool softener such as "Colace" twice a day while you are on it. Also recommend a mmez-njc-sxaiooe laxative such as senna or MiraLAX any day that you do not have a bowel movement. If you received narcotic pain medication in the emergency department, do not drive or operate machinery for the next 24 hours. Discharge Date/Time: 10/10/17 16:06
[2017-10-10 16:08] VITALS: BP 110/59
== END 2017-10-10 16:06 | disposition home or self-care (01) ==
LOC: EDUNIT# → EDBD → ED 12:03
DX: K85.90 Acute pancreatitis without necrosis or infection, unspecified (principal); I10 Essential (primary) hypertension
CPT/HCPCS: 36415; 80053; 83690; 85025; 96361; 96374; 96375; 99284; J1170

== ENCOUNTER 2017-10-12 18:34 | Outpatient (CLI) | payer MEDICAID | END 2017-10-12 18:35 | disposition home or self-care (01) | LOC: EMS 18:34 | PROVIDERS: ATTEND Surgery | DX: R10.12 Left upper quadrant pain (principal) | CPT/HCPCS: A0425; A0427 ==

== ENCOUNTER 2017-10-12 19:00 | Emergency (ER) | payer MEDICAID ==
--- NOTE | 2017-10-12 20:51 | ED Physician Documentation ---
PD HPI ABD PAIN - Stated complaint Stated Complaint: ABD PX - Chief complaint Chief Complaint: Abd Pain - History obtained from History obtained from: Patient - History of Present Illness Timing - onset: How many days ago (few) Timing - duration: Days Timing - details: Abrupt onset, Still present, Waxing and waning (improved reasonably with ED visit meds yesterday, but pain worse again today.) Quality: Aching, Sharp, Pain Location: Epigastric Radiation: Upper back Improved by: Laying still. No: Eating Worsened by: Eating, Moving, Breathing, Palpation Associated symptoms: Nausea, Vomiting. No: Diarrhea, Melena Similar symptoms before: Diagnosis (pancreatitis and gastritis) Recently seen: Emergency Dept Review of Systems Constitutional: denies: Fever, Chills, Myalgias Nose: denies: Rhinorrhea / runny nose, Congestion Throat: denies: Sore throat Cardiac: denies: Chest pain / pressure, Palpitations Respiratory: denies: Dyspnea, Cough GI: reports: Abdominal Pain, Nausea, Vomiting. denies: Abdominal Swelling : denies: Dysuria, Frequency Skin: denies: Rash, Lesions PD PAST MEDICAL HISTORY - Past Medical History Cardiovascular: Hypertension Respiratory: None Neuro: None Endocrine/Autoimmune: None GI: Pancreatitis : None HEENT: None Psych: None Musculoskeletal: None Derm: None - Past Surgical History Past Surgical History: Yes Ortho: Other - Present Medications Home Medications: Ambulatory Orders Medication Instructions Recorded Confirmed Ondansetron HCl [Zofran] 4 mg PO Q6H PRN #10 tablet 07/31/17 08/07/17 Promethazine [Phenergan] 25 mg PO Q6H PRN #10 tablet 08/01/17 08/07/17 Oxycodone HCl/Acetaminophen 1 - 2 tab PO Q4H PRN #15 tablet 09/09/17 [Percocet 5-325 mg Tablet] - Allergies Allergies/Adverse Reactions: Allergies Allergy/AdvReac Type Severity Reaction Status Date / Time morphine Allergy Hives Verified 10/15/17 02:58 - Social History Does the pt smoke?: Yes Smoking Status: Current every day smoker Does the pt drink ETOH?: No Does the pt have substance abuse?: Yes - Immunizations Immunizations are current?: No - POLST Patient has POLST: No POLST Status: Full Code PD ED PE NORMAL - Vitals Vital signs reviewed: Yes - General General: Alert and oriented X 3, Well developed/nourished, Other (appears in significant pain, similar to prior visits. ) - HEENT HEENT: PERRL (nonicteric), Pharynx benign - Neck Neck: Supple, no meningeal sign, No adenopathy - Cardiac Cardiac: RRR, No murmur - Respiratory Respiratory: Clear bilaterally - Abdomen Abdomen: Normal bowel sounds, Soft, Non distended, No organomegaly, Other (very tender in epigastric area. ) - Male Male : Deferred - Rectal Rectal: Deferred - Back Back: No CVA TTP - Derm Derm: Normal color, Warm and dry - Extremities Extremities: No deformity, No tenderness to palpate, No edema, No calf tenderness / cord - Neuro Neuro: Alert and oriented X 3, No motor deficit, Normal speech Results - Vitals Vitals: Oxygen O2 Source Room air - Labs Labs: Laboratory Tests 10/12/17 10/12/17 20:05 20:05 WBC 10.4 RBC 5.40 Hgb 14.1 Hct 43.6 MCV 80.7 MCH 26.0 L MCHC 32.3 RDW 14.2 Plt Count 273 MPV 8.0 Neut # 7.1 H Lymph # 2.2 [place] # 0.8 Eos # 0.2 Baso # 0.1 Absolute Nucleated RBC 0.01 Nucleated RBC % 0.0 Sodium 141 Potassium 3.4 L Chloride 103 Carbon Dioxide 29 Anion Gap 9.0 BUN 13 Creatinine 0.9 Estimated GFR (MDRD) 116 Glucose 103 H Calcium 9.5 Total Bilirubin 0.2 AST 24 ALT 29 Alkaline Phosphatase 82 Total Protein 8.0 Albumin 4.9 Globulin 3.1 Albumin/Globulin Ratio 1.6 Lipase 85 H PD MEDICAL DECISION MAKING - ED course Complexity details: reviewed old records, re-evaluated patient (pain improved enough and he feels able to go home. Taking PO fluids. ), considered differential (well known to ED for pancreatitis and gastritis recurrent pains. Was here in past 1-2 days, with pain persisting. ), d/w patient Departure - Departure Disposition: Home, Self Care Clinical Impression: Acute on chronic pancreatitis Abdominal pain Qualifiers: Abdominal location: upper abdomen, unspecified Qualified Code(s): R10.10 - Upper abdominal pain, unspecified Condition: Stable Record reviewed to determine appropriate education?: Yes Instructions: ED Pancreatitis Comments: Clear liquid diet for a few days. Drink lots of fluids. Continue usual medications. Add promethazine if needed for nausea and Percocet if needed for pain. Follow-up with your primary care at the upcoming appointment as planned. Return if needed. Discharge Date/Time: 10/12/17 23:01
[2017-10-12] MEDS ORDERED: HYDROmorphone 1 MG/ML CARPUJECT IVP STA ×3 (20:56→21:46)
[2017-10-12] MEDS ORDERED: ACETAMINOPHEN 1,000 MG/100 ML 100 ML IV STA (20:56)
[2017-10-12] MEDS ORDERED: ONDANSETRON 4 MG/2 ML VIAL IVP STA (20:56)
[2017-10-12] MEDS ORDERED: SODIUM CHLORIDE 0.9% 1,000 ML IV ONE (20:56)
[2017-10-12 21:02] LABS: BASOPHILS # (AUTO) 0.1 10^3/uL (0.0-0.1); BASOPHILS % (AUTO) 0.6 %; EOSINOPHILS # (AUTO) 0.2 10^3/uL (0.0-0.7); EOSINOPHILS % (AUTO) 2.1 %; HGB - HEMOGLOBIN 14.1 g/dL (14.0-18.0); LYMPHOCYTES # (AUTO) 2.2 10^3/uL (1.5-3.5); LYMPHOCYTES % (AUTO) 21.2 %; MEAN CORPUSCULAR HGB CONC 32.3 g/dL (32.0-36.0); MEAN CORPUSCULAR VOLUME 80.7 fL (80.0-94.0); MONOCYTES # (AUTO) 0.8 10^3/uL (0.0-1.0); MONOCYTES % (AUTO) 7.6 %; NEUTROPHILS # (AUTO) 7.1 10^3/uL (1.5-6.6); NEUTROPHILS % (AUTO) 68.5 %; PLT - PLATELET COUNT 273 10^3/uL (130-450); RED CELL DISTRIBUTION WIDTH 14.2 % (12.0-15.0); WHITE BLOOD COUNT 10.4 x10^3/uL (4.8-10.8)
[2017-10-12 21:11] LABS: ALBUMIN 4.9 g/dL (3.2-5.5); ALBUMIN/GLOBULIN RATIO 1.6 (1.0-2.2); BILIRUBIN,TOTAL 0.2 mg/dL (0.2-1.0); CALCIUM 9.5 mg/dL (8.5-10.3); CREATININE 0.9 mg/dL (0.6-1.2)
[2017-10-12] MEDS ORDERED: PROMETHAZINE INJ 25 MG in SODIUM CHLORIDE 0.9% 50 ML IV STA (21:46)
[2017-10-12] MEDS ORDERED: ONDANSETRON ODT 4 MG Prepack 2 TL PRN (22:46)
[2017-10-12] MEDS ORDERED: oxyCODONE/ACET 5/325 Prepack 4 PO STA (22:46)
[2017-10-12 23:01] VITALS: BP 114/73
== END 2017-10-12 23:01 | disposition home or self-care (01) ==
LOC: ED 19:00
DX: K85.90 Acute pancreatitis without necrosis or infection, unspecified (principal); K86.1 Other chronic pancreatitis; I10 Essential (primary) hypertension; F17.200 Nicotine dependence, unspecified, uncomplicated
CPT/HCPCS: 36415; 80053; 83690; 85025; 96365; 96367; 96375; 96376; 99284; J0131; J1170; J7040

== ENCOUNTER 2017-10-14 22:33 | Outpatient (CLI) | payer MEDICAID | END 2017-10-14 22:34 | disposition critical access hospital (66) | LOC: EMS 22:33 | PROVIDERS: ATTEND Surgery | DX: R10.9 Unspecified abdominal pain (principal); R11.2 Nausea with vomiting, unspecified | CPT/HCPCS: A0425; A0427 ==

== ENCOUNTER 2017-10-14 22:53 | Emergency (ER) | payer MEDICAID ==
[2017-10-14 23:56] LABS: BASOPHILS # (AUTO) 0.1 10^3/uL (0.0-0.1); BASOPHILS % (AUTO) 0.6 %; EOSINOPHILS # (AUTO) 0.2 10^3/uL (0.0-0.7); EOSINOPHILS % (AUTO) 2.1 %; HGB - HEMOGLOBIN 11.9 g/dL (14.0-18.0); LYMPHOCYTES # (AUTO) 1.6 10^3/uL (1.5-3.5); LYMPHOCYTES % (AUTO) 17.6 %; MEAN CORPUSCULAR HEMOGLOBIN 25.9 pg (27.0-31.0); MEAN CORPUSCULAR HGB CONC 32.2 g/dL (32.0-36.0); MEAN CORPUSCULAR VOLUME 80.5 fL (80.0-94.0); MEAN PLATELET VOLUME 7.1 fL (7.4-11.4); MONOCYTES # (AUTO) 0.7 10^3/uL (0.0-1.0); MONOCYTES % (AUTO) 7.5 %; NEUTROPHILS # (AUTO) 6.4 10^3/uL (1.5-6.6); NEUTROPHILS % (AUTO) 72.2 %; PLT - PLATELET COUNT 225 10^3/uL (130-450); RED CELL DISTRIBUTION WIDTH 14.2 % (12.0-15.0); WHITE BLOOD COUNT 8.9 x10^3/uL (4.8-10.8)
[2017-10-15 00:08] LABS: ALBUMIN 4.1 g/dL (3.2-5.5); ALBUMIN/GLOBULIN RATIO 1.6 (1.0-2.2); BILIRUBIN,TOTAL 0.5 mg/dL (0.2-1.0); CALCIUM 8.7 mg/dL (8.5-10.3); CREATININE 0.9 mg/dL (0.6-1.2); TOTAL PROTEIN 6.6 g/dL (6.7-8.2)
--- NOTE | 2017-10-15 02:04 | ED Physician Documentation ---
PD HPI ABD PAIN - Stated complaint Stated Complaint: ABD PAIN/NAUSEA - Chief complaint Chief Complaint: Abd Pain - History obtained from History obtained from: Patient - History of Present Illness Timing - onset: How many hours ago (2) Timing - duration: Hours Timing - details: Abrupt onset Pain level max: 10 Pain level now: 10 Quality: Pain Location: Epigastric Radiation: No: Chest, , Lower back, Left flank, Left shoulder, Right flank, Right shoulder, Upper back Improved by: Other (nothing) Worsened by: Palpation Associated symptoms: Nausea, Vomiting. No: Fever Similar symptoms before: Diagnosis (similar to previous episodes of pancreatitis ), Work up / diagnostics Recently seen: Emergency Dept (frequent [facility] ED visits including four previous ED visits this month) - Additional information Additional information: sudden onset epigastric and LUQ abd. pain, burning, with nausea and vomiting. frequent [facility] ED visits for same. he says he has upcoming appointment with GI. he has antinauseants and pain medication at home but was unable to tolerate any PO for this episode. BIBA and symptoms have resolved after fentanyl en route. Review of Systems Constitutional: reports: Reviewed and negative Cardiac: reports: Reviewed and negative Respiratory: reports: Reviewed and negative GI: reports: Abdominal Pain, Nausea, Vomiting. denies: Constipation, Diarrhea PD PAST MEDICAL HISTORY - Past Medical History Cardiovascular: Hypertension Respiratory: None Neuro: None Endocrine/Autoimmune: None GI: Pancreatitis : None HEENT: None Psych: None Musculoskeletal: None Derm: None - Past Surgical History Past Surgical History: Yes Ortho: Other - Present Medications Home Medications: Ambulatory Orders Medication Instructions Recorded Confirmed Ondansetron HCl [Zofran] 4 mg PO Q6H PRN #10 tablet 07/31/17 08/07/17 Promethazine [Phenergan] 25 mg PO Q6H PRN #10 tablet 08/01/17 08/07/17 Oxycodone HCl/Acetaminophen 1 - 2 tab PO Q4H PRN #15 tablet 09/09/17 [Percocet 5-325 mg Tablet] - Allergies Allergies/Adverse Reactions: Allergies Allergy/AdvReac Type Severity Reaction Status Date / Time morphine Allergy Hives Verified 10/15/17 02:58 - Social History Does the pt smoke?: Yes Smoking Status: Current every day smoker Does the pt drink ETOH?: No Does the pt have substance abuse?: Yes - Immunizations Immunizations are current?: No - POLST Patient has POLST: No POLST Status: Full Code PD ED PE NORMAL - Vitals Vital signs reviewed: Yes - General General: Alert and oriented X 3, No acute distress, Well developed/nourished, Other (awake, alert, conversant and pleasant) - HEENT HEENT: Moist mucous membranes - Cardiac Cardiac: RRR, No murmur - Respiratory Respiratory: No respiratory distress, Clear bilaterally - Abdomen Abdomen: Normal bowel sounds, Soft, Non tender, Non distended, No organomegaly - Back Back: No CVA TTP - Derm Derm: Normal color, Warm and dry, No rash Results - Vitals Vitals: Oxygen O2 Source Room air - Labs Labs: Laboratory Tests 10/14/17 10/14/17 23:50 23:50 WBC 8.9 RBC 4.60 L Hgb 11.9 L Hct 37.0 L MCV 80.5 MCH 25.9 L MCHC 32.2 RDW 14.2 Plt Count 225 MPV 7.1 L Neut # 6.4 Lymph # 1.6 [place] # 0.7 Eos # 0.2 Baso # 0.1 Absolute Nucleated RBC 0.00 Nucleated RBC % 0.0 Sodium 137 Potassium 3.5 Chloride 104 Carbon Dioxide 28 Anion Gap 5.0 L BUN 16 Creatinine 0.9 Estimated GFR (MDRD) 116 Glucose 97 Calcium 8.7 Total Bilirubin 0.5 AST 20 ALT 23 Alkaline Phosphatase 62 Total Protein 6.6 L Albumin 4.1 Globulin 2.5 Albumin/Globulin Ratio 1.6 Lipase 28 PD MEDICAL DECISION MAKING - ED course Complexity details: reviewed old records, reviewed results, re-evaluated patient , considered differential, d/w patient ED course: patient had some mild residual nausea and epigastric burning prior to d/c. given IV zofran and GI cocktail, which he says he has had before without adverse reaction Departure - Departure Disposition: Home, Self Care Clinical Impression: Abdominal pain Qualifiers: Abdominal location: upper abdomen, unspecified Qualified Code(s): R10.10 - Upper abdominal pain, unspecified Condition: Good Instructions: ED Abdominal Pain Unkn Cause Male Follow-Up: Kristin Hansen ARNP [Primary Care Provider] - Discharge Date/Time: 10/15/17 02:29
[2017-10-15] MEDS ORDERED: PHENobarb/HYOSCY/ATROPINE/SCOP 5 ML UDC PO STA (02:14)
[2017-10-15] MEDS ORDERED: LIDOCAINE VISCOUS 2% 15 ML UDC MM STA (02:14)
[2017-10-15] MEDS ORDERED: MAG HYDROX/AL HYDROX/SIMETH 30 ML UDC PO STA (02:14)
[2017-10-15] MEDS ORDERED: ONDANSETRON 4 MG/2 ML VIAL IVP STA (02:15)
[2017-10-15 02:30] VITALS: BP 131/85
== END 2017-10-15 02:29 | disposition home or self-care (01) ==
LOC: EDUNIT# → SUPCPDRO 22:53 → ED 22:53
DX: R10.13 Epigastric pain (principal); I10 Essential (primary) hypertension; F17.200 Nicotine dependence, unspecified, uncomplicated
CPT/HCPCS: 36415; 80053; 83690; 85025; 96374; 99283; 99284; A9270

== ENCOUNTER 2017-10-15 02:47 | Emergency (ER) | payer MEDICAID ==
[2017-10-15] MEDS ORDERED: SODIUM CHLORIDE 0.9% 1,000 ML IV STA (03:08)
[2017-10-15] MEDS ORDERED: ONDANSETRON 4 MG/2 ML VIAL IVP STA (03:08)
--- NOTE | 2017-10-15 03:08 | ED Physician Documentation ---
PD HPI ABD PAIN - Stated complaint Stated Complaint: ABDOMINAL PAIN - Chief complaint Chief Complaint: Abd Pain - History obtained from History obtained from: Patient - History of Present Illness Timing - onset: How many hours ago (1) Timing - details: Abrupt onset, Still present in ED Pain level now: 8 Quality: Pain, Other (burning) Location: Epigastric, LUQ Improved by: Other (no ameliorating factors) Worsened by: Other (no exacerbating factors) Associated symptoms: Nausea, Vomiting - Additional information Additional information: discharged from this ED approximately 1-2 hours ago, returns due to recurrence of his abdominal pain. he feels that the GI cocktail given prior to discharge might have triggered this episode of his chronically recurrent abdominal pain, and although he did not recall adverse reaction when we discussed this medication earlier, he now says he recalls he has had similar adverse reaction to this medication in the past Review of Systems Cardiac: reports: Reviewed and negative Respiratory: reports: Reviewed and negative GI: reports: Abdominal Pain, Nausea, Vomiting PD PAST MEDICAL HISTORY - Past Medical History Cardiovascular: Hypertension Respiratory: None Neuro: None Endocrine/Autoimmune: None GI: Pancreatitis : None HEENT: None Psych: None Musculoskeletal: None Derm: None - Past Surgical History Past Surgical History: Yes Ortho: Other - Present Medications Home Medications: Ambulatory Orders Medication Instructions Recorded Confirmed Ondansetron HCl [Zofran] 4 mg PO Q6H PRN #10 tablet 07/31/17 08/07/17 Promethazine [Phenergan] 25 mg PO Q6H PRN #10 tablet 08/01/17 08/07/17 Oxycodone HCl/Acetaminophen 1 - 2 tab PO Q4H PRN #15 tablet 09/09/17 [Percocet 5-325 mg Tablet] - Allergies Allergies/Adverse Reactions: Allergies Allergy/AdvReac Type Severity Reaction Status Date / Time morphine Allergy Hives Verified 10/15/17 02:58 - Social History Does the pt smoke?: Yes Smoking Status: Current every day smoker Does the pt drink ETOH?: No Does the pt have substance abuse?: Yes - Immunizations Immunizations are current?: No - POLST Patient has POLST: No POLST Status: Full Code PD ED PE NORMAL - Vitals Vital signs reviewed: Yes - General General: Alert and oriented X 3, Well developed/nourished, Other (appears to be in painful distress, mild diaphoresis) - HEENT HEENT: Moist mucous membranes - Cardiac Cardiac: RRR, No murmur - Respiratory Respiratory: No respiratory distress, Clear bilaterally - Abdomen Abdomen: Normal bowel sounds, Soft, Non tender, Non distended Results - Vitals Vitals: Oxygen O2 Source Room air PD MEDICAL DECISION MAKING - ED course Complexity details: reviewed results, re-evaluated patient, considered differential, d/w patient ED course: given IV zofran, IV NS bolud 1 liter, and dilaudid 1mg IV followed by 2mg; he had resolution of symptoms with these interventions and was awake, alert, and in NAD at time of discharge. markedly high BPs resolved in proportion to symptomatic relief Departure - Departure Disposition: 01 Home, Self Care Clinical Impression: Abdominal pain Qualifiers: Abdominal location: upper abdomen, unspecified Qualified Code(s): R10.10 - Upper abdominal pain, unspecified Condition: Good Instructions: ED Abdominal Pain Unkn Cause Male Follow-Up: Kristin Hansen ARNP [Primary Care Provider] - Discharge Date/Time: 10/15/17 04:52
[2017-10-15] MEDS ORDERED: HYDROmorphone 1 MG/ML CARPUJECT IVP STA ×2 (03:13→03:36)
[2017-10-15 04:32] VITALS: BP 104/54
== END 2017-10-15 04:52 | disposition home or self-care (01) ==
LOC: ED 02:47
DX: R10.13 Epigastric pain (principal); I10 Essential (primary) hypertension; F17.200 Nicotine dependence, unspecified, uncomplicated
CPT/HCPCS: 96361; 96374; 96376; 99283; J1170

== ENCOUNTER 2017-10-17 21:08 | Outpatient (CLI) | payer MEDICAID | END 2017-10-17 21:09 | disposition critical access hospital (66) | LOC: EMS 21:08 | PROVIDERS: ATTEND Surgery | DX: R10.9 Unspecified abdominal pain (principal); R11.2 Nausea with vomiting, unspecified | CPT/HCPCS: A0425; A0427 ==

== ENCOUNTER 2017-10-17 21:27 | Emergency (ER) | payer MEDICAID ==
[2017-10-17] MEDS ORDERED: ONDANSETRON 4 MG/2 ML VIAL IVP STA (22:30)
[2017-10-17] MEDS ORDERED: fentaNYL 100 MCG/2 ML VIAL IVP STA (22:30)
--- NOTE | 2017-10-17 22:31 | ED Physician Documentation ---
PD HPI ABD PAIN - Stated complaint Stated Complaint: ABD PAIN - Chief complaint Chief Complaint: Abd Pain - History obtained from History obtained from: Patient, EMS - History of Present Illness Timing - onset: Today Timing - details: Abrupt onset, Intermittant Quality: Cramping, Aching, Sharp Location: Epigastric Worsened by: Eating Associated symptoms: Nausea, Vomiting. No: Fever, Diarrhea, Constipation Similar symptoms before: Work up / diagnostics, Treatment Recently seen: Emergency Dept - Additional information Additional information: Patient is a 36 year old male with a history of pancreatitis who is presenting to the emergency department for abdominal pain. patient has been in the emergency department multiple times for similar symptoms. Patient has had an extensive work up but the etiology of his pancreatitis is still unknown. patient was treated with fentanyl and zofran enroute and his pain had improved significantly. Review of Systems Constitutional: denies: Fever, Chills Eyes: reports: Reviewed and negative Ears: reports: Reviewed and negative Nose: reports: Reviewed and negative Throat: reports: Reviewed and negative Cardiac: reports: Reviewed and negative Respiratory: reports: Reviewed and negative GI: reports: Abdominal Pain, Nausea, Vomiting. denies: Constipation, Diarrhea : reports: Reviewed and negative Musculoskeletal: reports: Reviewed and negative Neurologic: denies: Generalized weakness, Focal weakness Immunocompromised: denies: Immunocompromised PD PAST MEDICAL HISTORY - Past Medical History Past Medical History: Yes Cardiovascular: Hypertension Respiratory: None Neuro: None Endocrine/Autoimmune: None GI: Pancreatitis : None HEENT: None Psych: None Musculoskeletal: None Derm: None - Past Surgical History Past Surgical History: Yes Ortho: Other - Present Medications Home Medications: Ambulatory Orders Medication Instructions Recorded Confirmed Ondansetron HCl [Zofran] 4 mg PO Q6H PRN #10 tablet 07/31/17 08/07/17 Promethazine [Phenergan] 25 mg PO Q6H PRN #10 tablet 08/01/17 08/07/17 Oxycodone HCl/Acetaminophen 1 - 2 tab PO Q4H PRN #15 tablet 09/09/17 [Percocet 5-325 mg Tablet] - Allergies Allergies/Adverse Reactions: Allergies Allergy/AdvReac Type Severity Reaction Status Date / Time morphine Allergy Hives Verified 10/17/17 21:33 - Social History Does the pt smoke?: Yes Smoking Status: Current every day smoker Does the pt drink ETOH?: No Does the pt have substance abuse?: Yes - Immunizations Immunizations are current?: No - POLST Patient has POLST: No POLST Status: Full Code PD ED PE NORMAL - Vitals Vital signs reviewed: Yes - General General: Alert and oriented X 3 - HEENT HEENT: Atraumatic, PERRL - Cardiac Cardiac: RRR - Respiratory Respiratory: No respiratory distress - Derm Derm: Normal color, No rash - Extremities Extremities: No deformity - Neuro Neuro: Alert and oriented X 3, No motor deficit, Normal speech Eye Opening: Spontaneous PD ED PE EXPANDED - General General: Alert, In Pain - HEENT HEENT: Dry mucous membranes - Abdomen Abdomen: Tender to palpation, Guarding (voluntary), Epigastric. No: Rebound Results - Vitals Vitals: Vital Signs - 24 hr 10/17/17 10/17/17 10/17/17 21:30 21:48 22:21 Temperature 37.3 C Heart Rate 68 57 L 51 L Respiratory 18 18 18 Rate Blood Pressure 185/111 H 144/76 H 123/75 O2 Saturation 96 96 97 Oxygen O2 Source Room air PD MEDICAL DECISION MAKING - ED course Complexity details: reviewed old records, reviewed results, re-evaluated patient , considered differential, d/w patient ED course: Patient was seen and examined at bedside. patient stated that he was feeling a bit better and was just worried that his pain would come back. patient was treated with fentanyl and zofran. patient's recent lab work was reviewed. Patient reported that he was feeling better. patient asked to go home and was discharged in stable condition. Departure - Departure Disposition: 01 Home, Self Care Clinical Impression: Acute on chronic pancreatitis Condition: Good Instructions: ED Pancreatitis Follow-Up: Kristin Hnasen ARNP [Primary Care Provider] - Comments: Your symptoms today are likely secondary to an exacerbation of your pancreatitis or gastritis. 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 You may return to the emergency department at any time for new, worsening or uncontrollable symptoms.
[2017-10-17 22:57] VITALS: BP 134/86
== END 2017-10-17 23:07 | disposition home or self-care (01) ==
LOC: EDBD → EDUNIT# → ED 21:27
DX: K86.1 Other chronic pancreatitis (principal); I10 Essential (primary) hypertension; F17.200 Nicotine dependence, unspecified, uncomplicated
CPT/HCPCS: 96374; 99283; 99284

== ENCOUNTER 2017-10-20 14:17 | Outpatient (CLI) | payer MEDICAID | END 2017-10-20 14:18 | disposition critical access hospital (66) | LOC: EMS 14:17 | PROVIDERS: ATTEND Surgery | DX: R10.9 Unspecified abdominal pain (principal); R11.2 Nausea with vomiting, unspecified | CPT/HCPCS: A0425; A0427 ==

== ENCOUNTER 2017-10-20 14:58 | Emergency (ER) | payer MEDICAID ==
--- NOTE | 2017-10-20 15:17 | ED Physician Documentation ---
PD HPI ABD PAIN - Stated complaint Stated Complaint: PANCREATITIS - Chief complaint Chief Complaint: Abd Pain - History obtained from History obtained from: Patient, EMS - History of Present Illness Timing - onset: Other (He has chronic recurrent pancreatitis of unclear etiology. Neg MRCP late last year and neg EGD except mild gastritis. Also neg CTs (multiple) last 07/18/17. Bad upper abd pain to back today. No vomiting, but it nauseous.) Review of Systems Ten Systems: 10 systems reviewed and negative Constitutional: reports: Reviewed and negative Nose: reports: Reviewed and negative Cardiac: reports: Reviewed and negative GI: reports: Abdominal Pain PD PAST MEDICAL HISTORY - Past Medical History Cardiovascular: Hypertension Respiratory: None Neuro: None Endocrine/Autoimmune: None GI: Pancreatitis : None HEENT: None Psych: None Musculoskeletal: None Derm: None - Past Surgical History Past Surgical History: Yes Ortho: Other - Present Medications Home Medications: Ambulatory Orders Medication Instructions Recorded Confirmed Ondansetron HCl [Zofran] 4 mg PO Q6H PRN #10 tablet 10/20/17 Oxycodone HCl/Acetaminophen 1 - 2 tab PO Q4H PRN #10 tablet 10/20/17 [Percocet 5-325 mg Tablet] - Allergies Allergies/Adverse Reactions: Allergies Allergy/AdvReac Type Severity Reaction Status Date / Time morphine Allergy Hives Verified 10/20/17 15:07 - Social History Does the pt smoke?: Yes Smoking Status: Current every day smoker Does the pt drink ETOH?: No Does the pt have substance abuse?: Yes - Immunizations Immunizations are current?: No - POLST Patient has POLST: No POLST Status: Full Code PD ED PE NORMAL - Vitals Vital signs reviewed: Yes - General General: Alert and oriented X 3, No acute distress - HEENT HEENT: PERRL, EOMI - Neck Neck: Supple, no meningeal sign, No bony TTP - Abdomen Abdomen: Normal bowel sounds, Soft, Non tender - Neuro Neuro: Alert and oriented X 3, Normal speech Results - Vitals Vitals: Vital Signs - 24 hr 10/20/17 15:04 Temperature 37.2 C Heart Rate 53 L Respiratory 16 Rate Blood Pressure 139/74 H O2 Saturation 98 Oxygen O2 Source Room air - Labs Labs: Laboratory Tests 10/20/17 10/20/17 15:20 15:20 WBC 8.2 RBC 5.10 Hgb 13.4 L Hct 40.7 L MCV 79.6 L MCH 26.3 L MCHC 33.1 RDW 14.3 Plt Count 279 MPV 7.3 L Neut # 5.1 Lymph # 1.9 [place] # 0.8 Eos # 0.2 Baso # 0.2 H Absolute Nucleated RBC 0.00 Nucleated RBC % 0.0 Sodium 138 Potassium 3.8 Chloride 103 Carbon Dioxide 27 Anion Gap 8.0 BUN 14 Creatinine 0.8 Estimated GFR (MDRD) 133 Glucose 102 H Calcium 9.2 Total Bilirubin 0.3 AST 34 ALT 53 Alkaline Phosphatase 76 Total Protein 7.6 Albumin 4.4 Globulin 3.2 Albumin/Globulin Ratio 1.4 Lipase 25 Ethyl Alcohol < 5.0 PD MEDICAL DECISION MAKING - ED course Complexity details: d/w PMD (Rona Hansen, given frequent ED visits (18 since 07/18). Has had Gi referral in Jul- no clear dx. Given frequent ED se and basically neg workups except for mild lipase elevations, no further narcotics from the ED for this ongoing issue.) ED course: 36-year-old gentleman with an exacerbation of chronic upper abdominal pain diagnosed as idiopathic pancreatitis, he sometimes has normal and sometimes very modestly elevated lipases. His workups have been complete and negative so far. I spoke with his primary care physician, he has had 18 visits so far this year, I discussed with the patient that going forward it was no longer appropriate to treat such frequent exacerbations with IV narcotics and we would not do so. Departure - Departure Disposition: 01 Home, Self Care Clinical Impression: Abdominal pain Qualifiers: Abdominal location: epigastric Qualified Code(s): R10.13 - Epigastric pain Condition: Good Record reviewed to determine appropriate education?: Yes Instructions: ED Abdominal Pain Unkn Cause Male Prescriptions: Ondansetron HCl [Zofran] 4 mg PO Q6H PRN #10 tablet PRN Reason: Nausea / Vomiting Oxycodone HCl/Acetaminophen [Percocet 5-325 mg Tablet] 1 - 2 tab PO Q4H PRN #10 tablet PRN Reason: Pain Comments: The policy of this emergency department is to not give more than 3 prescriptions for narcotics or other controlled substances in any 1 year. You have already surpassed this benchmark and we cannot prescribe narcotics for you. I encourage you to follow up with your primary care physician or to establish care with a primary care physician for ongoing pain management. You are always welcome to seek emergency care here for this or new issues but there will likely be limitations in the prescription of narcotic pain medication. Your blood pressure was elevated today on check into the emergency department. This does not mean that you have hypertension, it is a common phenomenon to come to the emergency department and have elevated blood pressure. I recommend that you see your primary care physician within the week to have it rechecked when you are feeling better.
[2017-10-20] MEDS ORDERED: KETOROLAC 60 MG/2 ML VIAL IVP STA (15:26)
[2017-10-20] MEDS ORDERED: HYDROmorphone 1 MG/ML CARPUJECT IVP STA (15:26)
[2017-10-20] MEDS ORDERED: ONDANSETRON 4 MG/2 ML VIAL IVP STA (15:26)
[2017-10-20 15:29] LABS: BASOPHILS # (AUTO) 0.2 10^3/uL (0.0-0.1); BASOPHILS % (AUTO) 2.2 %; EOSINOPHILS # (AUTO) 0.2 10^3/uL (0.0-0.7); EOSINOPHILS % (AUTO) 2.1 %; HGB - HEMOGLOBIN 13.4 g/dL (14.0-18.0); LYMPHOCYTES # (AUTO) 1.9 10^3/uL (1.5-3.5); LYMPHOCYTES % (AUTO) 23.8 %; MEAN CORPUSCULAR HEMOGLOBIN 26.3 pg (27.0-31.0); MEAN CORPUSCULAR HGB CONC 33.1 g/dL (32.0-36.0); MEAN CORPUSCULAR VOLUME 79.6 fL (80.0-94.0); MEAN PLATELET VOLUME 7.3 fL (7.4-11.4); MONOCYTES # (AUTO) 0.8 10^3/uL (0.0-1.0); MONOCYTES % (AUTO) 10.2 %; NEUTROPHILS # (AUTO) 5.1 10^3/uL (1.5-6.6); NEUTROPHILS % (AUTO) 61.7 %; PLT - PLATELET COUNT 279 10^3/uL (130-450); RED CELL DISTRIBUTION WIDTH 14.3 % (12.0-15.0); WHITE BLOOD COUNT 8.2 x10^3/uL (4.8-10.8)
[2017-10-20 15:39] LABS: ALBUMIN 4.4 g/dL (3.2-5.5); ALBUMIN/GLOBULIN RATIO 1.4 (1.0-2.2); ALKALINE PHOSPHATASE 76 IU/L (42-121); ALT ALANINE AMINOTRANSFERASE 53 IU/L (10-60); AST ASPARTATE AMINOTRANSFERASE 34 IU/L (10-42); BILIRUBIN,TOTAL 0.3 mg/dL (0.2-1.0); BUN - BLOOD UREA NITROGEN 14 mg/dL (6-20); CALCIUM 9.2 mg/dL (8.5-10.3); CARBON DIOXIDE - CO2 27 mmol/L (21-32); CHLORIDE 103 mmol/L (101-111); CREATININE 0.8 mg/dL (0.6-1.2); GFR - MDRD 133 (>89); GLUCOSE 102 mg/dL (70-100); LIPASE 25 U/L (22-51); SODIUM 138 mmol/L (135-145); TOTAL PROTEIN 7.6 g/dL (6.7-8.2)
[2017-10-20 16:42] VITALS: BP 155/86
== END 2017-10-20 16:38 | disposition home or self-care (01) ==
LOC: EDUNIT# → ED 14:58
DX: R10.13 Epigastric pain (principal); K86.1 Other chronic pancreatitis; I10 Essential (primary) hypertension; F17.200 Nicotine dependence, unspecified, uncomplicated
CPT/HCPCS: 36415; 80053; 80320; 83690; 85025; 96374; 96375; 99283; 99284; J1170

== ENCOUNTER 2017-10-22 10:14 | Outpatient (CLI) | payer MEDICAID | END 2017-10-22 10:15 | disposition short-term general hospital (02) | LOC: EMS 10:14 | PROVIDERS: ATTEND Surgery | DX: R10.12 Left upper quadrant pain (principal); R11.2 Nausea with vomiting, unspecified | CPT/HCPCS: A0425; A0427 ==

== ENCOUNTER 2017-10-25 13:36 | Outpatient (CLI) | payer MEDICAID | END 2017-10-25 13:37 | disposition critical access hospital (66) | LOC: EMS 13:36 | PROVIDERS: ATTEND Surgery | DX: R10.12 Left upper quadrant pain (principal); R11.2 Nausea with vomiting, unspecified | CPT/HCPCS: A0425; A0427 ==

== ENCOUNTER 2017-10-25 14:09 | Emergency (ER) | payer MEDICAID ==
[2017-10-25 14:14] VITALS: BP 137/92
[2017-10-25] MEDS ORDERED: PROMETHAZINE INJ 25 MG in SODIUM CHLORIDE 0.9% 50 ML IV STA (14:41)
--- NOTE | 2017-10-25 14:46 | ED Physician Documentation ---
PD HPI ABD PAIN - Stated complaint Stated Complaint: ABD PX - Chief complaint Chief Complaint: Abd Pain - History obtained from History obtained from: Patient, EMS - History of Present Illness Timing - onset: How many weeks ago (3) Timing - duration: Weeks (3) Timing - details: Gradual onset, Still present, Waxing and waning Quality: Sharp, Pain Location: Epigastric Improved by: Meds Worsened by: Eating Associated symptoms: Nausea, Vomiting Similar symptoms before: Diagnosis (gastritis and pancreatitis.) Recently seen: Emergency Dept - Additional information Additional information: 36-year-old male with chronic abdominal pain has been treated in the past for pancreatitis and gastritis and he frequently has vomiting episodes that persist for days at a time. He has been into the emergency department 18 times this year prior to today today is his 19th visit. On his last visit he was told we will no longer be able to provide narcotic.He has received IV hydration about 5 days ago and states that he was able to eat dinner last night he had some lunch yesterday as well and he has been able to hold down fluids. He is complaining about epigastric pain and nausea with dry heaves. He is out of his percocet and he has taken the ambulance to the hospital. Review of Systems Constitutional: denies: Fever, Chills Eyes: denies: Decreased vision Ears: denies: Ear pain Nose: denies: Congestion Throat: denies: Sore throat Cardiac: denies: Chest pain / pressure, Palpitations Respiratory: denies: Dyspnea, Cough GI: reports: Abdominal Pain, Nausea, Vomiting : denies: Dysuria, Frequency Skin: denies: Rash Musculoskeletal: denies: Neck pain, Back pain, Extremity pain Neurologic: denies: Generalized weakness, Focal weakness, Numbness Psychiatric: denies: Depressed PD PAST MEDICAL HISTORY - Past Medical History Past Medical History: Yes Cardiovascular: Hypertension Respiratory: None Neuro: None Endocrine/Autoimmune: None GI: Pancreatitis : None HEENT: None Psych: None Musculoskeletal: None Derm: None - Past Surgical History Past Surgical History: Yes Ortho: Other - Present Medications Home Medications: Ambulatory Orders Medication Instructions Recorded Confirmed Promethazine [Phenergan] 25 mg PO Q6H PRN #20 tablet 10/25/17 Sucralfate [Carafate] 1 gm PO 10/25/17 - Allergies Allergies/Adverse Reactions: Allergies Allergy/AdvReac Type Severity Reaction Status Date / Time morphine Allergy Hives Verified 10/20/17 15:07 - Social History Does the pt smoke?: Yes Smoking Status: Current every day smoker Does the pt drink ETOH?: No Does the pt have substance abuse?: Yes - Immunizations Immunizations are current?: No - POLST Patient has POLST: No POLST Status: Full Code PD ED PE NORMAL - Vitals Vital signs reviewed: Yes (hypertensive mild ) - General General: Alert and oriented X 3, Well developed/nourished, Other (ip litigation associate tone and flat affect. ) - HEENT HEENT: Atraumatic, PERRL, EOMI - Neck Neck: Supple, no meningeal sign, No bony TTP - Cardiac Cardiac: RRR, No murmur - Respiratory Respiratory: No respiratory distress, Clear bilaterally - Abdomen Abdomen: Soft, Other (thin abdomen with epigastric tenderness. ) - Back Back: No CVA TTP, No spinal TTP - Derm Derm: Normal color, Warm and dry, No rash - Extremities Extremities: No deformity, No edema - Neuro Neuro: No motor deficit, No sensory deficit, Normal speech Eye Opening: Spontaneous Motor: Obeys Commands Verbal: Oriented GCS Score: 15 - Psych Psych: Normal mood Results - Vitals Vitals: Vital Signs - 24 hr 10/25/17 14:10 Temperature 36.6 C Heart Rate 66 Respiratory 18 Rate Blood Pressure 137/92 H O2 Saturation 99 Oxygen O2 Source Room air - Labs Labs: Laboratory Tests 10/25/17 10/25/17 14:52 14:52 WBC 7.0 RBC 4.90 Hgb 13.1 L Hct 38.9 L MCV 79.4 L MCH 26.7 L MCHC 33.6 RDW 14.1 Plt Count 265 MPV 7.1 L Neut # 4.9 Lymph # 1.4 L [place] # 0.6 Eos # 0.1 Baso # 0.1 Absolute Nucleated RBC 0.00 Nucleated RBC % 0.0 Sodium 137 Potassium 3.8 Chloride 104 Carbon Dioxide 27 Anion Gap 6.0 BUN 13 Creatinine 0.9 Estimated GFR (MDRD) 116 Glucose 104 H Calcium 8.9 Total Bilirubin 0.2 AST 22 ALT 36 Alkaline Phosphatase 65 Total Protein 7.1 Albumin 4.4 Globulin 2.7 Albumin/Globulin Ratio 1.6 Lipase 35 Procedures - IVC sono (time) 1435 Bedside IVC sono: IVC measures (cm) (1.88), Euvolemia PD MEDICAL DECISION MAKING - ED course Complexity details: reviewed results, re-evaluated patient, considered differential, d/w patient ED course: 36-year-old male with gastritis nausea and vomiting has run out of his pain medication and he has been told we will no longer be providing pain medication. Here in the emergency department we are evaluating him again for pancreatitis and on interrogation of his inferior vena cava he is not dehydrated. He is not given intravenous fluids he is given intravenous Phenergan and we will not provide narcotic. The patient is understanding of this. Departure - Departure Disposition: Home, Self Care Clinical Impression: Gastritis Qualifiers: Gastritis type: unspecified gastritis Chronicity: acute Gastritis bleeding: without bleeding Qualified Code(s): K29.00 - Acute gastritis without bleeding Instructions: ED PUD Vs Gastritis Follow-Up: Kristin Hansen ARNP [Primary Care Provider] - Prescriptions: Promethazine [Phenergan] 25 mg PO Q6H PRN #20 tablet PRN Reason: Nausea / Vomiting
[2017-10-25 14:59] LABS: BASOPHILS # (AUTO) 0.1 10^3/uL (0.0-0.1); BASOPHILS % (AUTO) 0.9 %; EOSINOPHILS # (AUTO) 0.1 10^3/uL (0.0-0.7); HGB - HEMOGLOBIN 13.1 g/dL (14.0-18.0); LYMPHOCYTES # (AUTO) 1.4 10^3/uL (1.5-3.5); LYMPHOCYTES % (AUTO) 19.7 %; MEAN CORPUSCULAR HEMOGLOBIN 26.7 pg (27.0-31.0); MEAN CORPUSCULAR HGB CONC 33.6 g/dL (32.0-36.0); MEAN CORPUSCULAR VOLUME 79.4 fL (80.0-94.0); MEAN PLATELET VOLUME 7.1 fL (7.4-11.4); MONOCYTES # (AUTO) 0.6 10^3/uL (0.0-1.0); MONOCYTES % (AUTO) 8.2 %; NEUTROPHILS # (AUTO) 4.9 10^3/uL (1.5-6.6); NEUTROPHILS % (AUTO) 69.2 %; PLT - PLATELET COUNT 265 10^3/uL (130-450); RED CELL DISTRIBUTION WIDTH 14.1 % (12.0-15.0)
[2017-10-25 15:11] LABS: ALBUMIN 4.4 g/dL (3.2-5.5); ALBUMIN/GLOBULIN RATIO 1.6 (1.0-2.2); BILIRUBIN,TOTAL 0.2 mg/dL (0.2-1.0); CALCIUM 8.9 mg/dL (8.5-10.3); CREATININE 0.9 mg/dL (0.6-1.2); TOTAL PROTEIN 7.1 g/dL (6.7-8.2)
== END 2017-10-25 15:40 | disposition home or self-care (01) ==
LOC: EDUNIT# → ED 14:09
DX: K29.00 Acute gastritis without bleeding (principal); G89.29 Other chronic pain; I10 Essential (primary) hypertension; F17.200 Nicotine dependence, unspecified, uncomplicated
CPT/HCPCS: 36415; 80053; 83690; 85025; 96365; 99283; 99284; J7040

== ENCOUNTER 2017-10-28 15:03 | Outpatient (CLI) | payer MEDICAID | END 2017-10-28 15:04 | disposition critical access hospital (66) | LOC: EMS 15:03 | PROVIDERS: ATTEND Surgery | DX: R10.9 Unspecified abdominal pain (principal) | CPT/HCPCS: A0425; A0427 ==

== ENCOUNTER 2017-10-28 15:22 | Emergency (ER) | payer MEDICAID ==
[2017-10-28] MEDS ORDERED: MAG HYDROX/AL HYDROX/SIMETH 30 ML UDC PO STA (15:54)
--- NOTE | 2017-10-28 15:58 | ED Physician Documentation ---
PD HPI ABD PAIN - Stated complaint Stated Complaint: ABD PX - Chief complaint Chief Complaint: Abd Pain - History obtained from History obtained from: Patient, EMS - History of Present Illness Timing - onset: Chronic Timing - details: Waxing and waning Quality: Dull Location: Epigastric Associated symptoms: Nausea, Vomiting (Twice today.). No: Fever, Hematemesis, Diarrhea Similar symptoms before: Diagnosis (History of recurrent abdominal pain, with previous diagnosis of pancreatitis as well as gastritis.), Work up / diagnostics (He has undergone multiple workups including abdominal pelvic CT last performed 07/18/2017, negative; negative EGD except for mild gastritis; and negative MRCP late last year.) Recently seen: Emergency Dept - Additional information Additional information: The patient is a 36-year-old male who presents via ambulance complaining of epigastric abdominal pain which he has had for more than a month, but with an acute exacerbation today after eating bread. He reports associated nausea with 2 episodes of vomiting. He describes the pain as dull at this time, and states it has improved since its initial onset. He denies fever, chest pain, diarrhea , or dysuria. He has been seen in the emergency department numerous times in the past year with similar presentation. I count 24 visits in the past 12 months. He was last seen here 3 days ago and had normal labs at that time. He had been seen 5 days prior to that and had normal labs at that time, and was told he would not be receiving any further narcotic medication for this chronic condition. He has no history of abdominal surgery. He denies the use of alcohol. Review of Systems Constitutional: denies: Fever Nose: denies: Congestion Throat: denies: Sore throat Cardiac: denies: Chest pain / pressure Respiratory: denies: Dyspnea, Cough GI: reports: Abdominal Pain, Nausea, Vomiting. denies: Diarrhea : denies: Dysuria Skin: denies: Rash Musculoskeletal: denies: Back pain Neurologic: denies: Headache PD PAST MEDICAL HISTORY - Past Medical History Past Medical History: Yes Cardiovascular: Hypertension Respiratory: None Neuro: None Endocrine/Autoimmune: None GI: Pancreatitis : None HEENT: None Psych: None Musculoskeletal: None Derm: None - Past Surgical History Past Surgical History: Yes Ortho: Other - Present Medications Home Medications: Ambulatory Orders Medication Instructions Recorded Confirmed Promethazine [Phenergan] 25 mg PO Q6H PRN #20 tablet 04/10/18 Sucralfate [Carafate] 1 gm PO 10/25/17 Omeprazole 40 mg PO DAILY #20 capsule. 10/28/17 - Allergies Allergies/Adverse Reactions: Allergies Allergy/AdvReac Type Severity Reaction Status Date / Time morphine Allergy Hives Verified 10/20/17 15:07 - Social History Does the pt smoke?: Yes Smoking Status: Current every day smoker Does the pt drink ETOH?: No Does the pt have substance abuse?: Yes - Immunizations Immunizations are current?: No - POLST Patient has POLST: No POLST Status: Full Code PD ED PE NORMAL - Vitals Vital signs reviewed: Yes (Borderline hypertension initially, but normalized prior to discharge.) - General General: Alert and oriented X 3, Well developed/nourished - HEENT HEENT: Atraumatic, Moist mucous membranes, Pharynx benign - Neck Neck: No adenopathy - Cardiac Cardiac: RRR, No murmur - Respiratory Respiratory: No respiratory distress, Clear bilaterally - Abdomen Abdomen: Normal bowel sounds, Soft, Non distended, No organomegaly, Other ( Minimal left upper quadrant tenderness to palpation, without rebound or guarding.) - Back Back: No CVA TTP - Derm Derm: No rash - Extremities Extremities: No edema, No calf tenderness / cord - Neuro Neuro: Alert and oriented X 3, No motor deficit, Normal speech Results - Vitals Vitals: Vital Signs - 24 hr 10/28/17 10/28/17 15:25 16:01 Temperature 37.0 C Heart Rate 63 54 L Respiratory 18 Rate Blood Pressure 138/86 H 122/74 O2 Saturation 98 99 Oxygen O2 Source Room air PD MEDICAL DECISION MAKING - ED course Complexity details: reviewed old records, re-evaluated patient, considered differential, d/w patient ED course: The patient's presentation is most consistent with gastritis/peptic ulcer disease. Pancreatitis is a consideration, but he has had normal lipase on his recent visits with similar presentations. His pain has spontaneously subsided since its initial onset today, and I do not think repeating lab work would be of clinical benefit. GI cocktail was administered and the patient reports slight further improvement of his symptoms. He is being discharged with prescription for omeprazole. He has Phenergan at home from a previous prescription. I discussed with him the likely diagnosis, symptomatic treatment and outpatient follow-up, as well as potentially worrisome signs or symptoms that should prompt reevaluation in the emergency department. Departure - Departure Disposition: 01 Home, Self Care Clinical Impression: Gastritis Qualifiers: Gastritis type: unspecified gastritis Chronicity: unspecified Gastritis bleeding: presence of bleeding unspecified Qualified Code(s): K29.70 - Gastritis , unspecified, without bleeding Condition: Stable Instructions: ED PUD Vs Gastritis Follow-Up: Kristin Hansen ARNP [Credentialed Staff Provider] - Prescriptions: Omeprazole 40 mg PO DAILY #20 capsule. Comments: Minimize coffee, oneil, or other potentially irritating foods. Take omeprazole daily as prescribed. You can use liquid antacid, such as Maalox or Mylanta if you develop recurrent symptoms. Follow up with your primary physician next week as planned. Return to the emergency department if you develop increasing abdominal pain persistent vomiting, or otherwise worsening symptoms. Discharge Date/Time: 10/28/17 16:09
[2017-10-28 16:07] VITALS: BP 122/74
== END 2017-10-28 16:09 | disposition home or self-care (01) ==
LOC: EDUNIT# → ED 15:22
DX: K29.70 Gastritis, unspecified, without bleeding (principal); F17.200 Nicotine dependence, unspecified, uncomplicated; R03.0 Elevated blood-pressure reading, without diagnosis of hypertension; Z87.19 Personal history of other diseases of the digestive system
CPT/HCPCS: 99283

== ENCOUNTER 2017-10-28 18:09 | Outpatient (CLI) | payer MEDICAID | END 2017-10-28 18:10 | disposition critical access hospital (66) | LOC: EMS 18:09 | PROVIDERS: ATTEND Surgery | DX: R10.9 Unspecified abdominal pain (principal) | CPT/HCPCS: A0425; A0429 ==

== ENCOUNTER 2017-10-28 18:30 | Inpatient (IN) | payer MEDICAID ==
[2017-10-28] MEDS ORDERED: PROMETHAZINE INJ 25 MG in SODIUM CHLORIDE 0.9% 50 ML IV STA (18:56)
[2017-10-28] MEDS ORDERED: SODIUM CHLORIDE 0.9% 1,000 ML IV ONE (18:56)
[2017-10-28] MEDS ORDERED: KETOROLAC 30 MG/ML VIAL IVP STA (18:56)
--- NOTE | 2017-10-28 18:59 | ED Physician Documentation ---
PD HPI ABD PAIN - Stated complaint Stated Complaint: PANCREATITIS - Chief complaint Chief Complaint: Abd Pain - History obtained from History obtained from: Patient - History of Present Illness Timing - onset: Today (36-year-old gentleman with chronic recurrent abdominal pain of unclear etiology status post multiple negative workups presents for an exacerbation of same. Note made that per my conversation with him within the last week we are no longer giving injectable narcotics for this given that this is now about his 20th visits for same to the emergency department so far this calendar year. Pain is no different than prior, he says it is worse today after taking Maalox in the emergency department earlier in the day.) Review of Systems Ten Systems: 10 systems reviewed and negative Constitutional: denies: Fever, Chills Cardiac: denies: Chest pain / pressure, Palpitations Respiratory: denies: Dyspnea, Cough GI: reports: Abdominal Pain, Nausea. denies: Vomiting, Diarrhea PD PAST MEDICAL HISTORY - Past Medical History Cardiovascular: Hypertension Respiratory: None Neuro: None Endocrine/Autoimmune: None GI: Pancreatitis : None HEENT: None Psych: None Musculoskeletal: None Derm: None - Past Surgical History Past Surgical History: Yes Ortho: Other - Present Medications Home Medications: Ambulatory Orders Medication Instructions Recorded Confirmed Promethazine [Phenergan] 25 mg PO Q6H PRN #20 tablet 10/25/17 Sucralfate [Carafate] 1 gm PO 10/25/17 Omeprazole 40 mg PO DAILY #20 capsule. 10/28/17 - Allergies Allergies/Adverse Reactions: Allergies Allergy/AdvReac Type Severity Reaction Status Date / Time morphine Allergy Hives Verified 10/20/17 15:07 - Social History Does the pt smoke?: Yes Smoking Status: Current every day smoker Does the pt drink ETOH?: No Does the pt have substance abuse?: Yes - Immunizations Immunizations are current?: No - POLST Patient has POLST: No POLST Status: Full Code PD ED PE NORMAL - Vitals Vital signs reviewed: Yes - General General: Alert and oriented X 3, No acute distress - Cardiac Cardiac: RRR, No murmur - Respiratory Respiratory: No respiratory distress, Clear bilaterally - Abdomen Abdomen: Normal bowel sounds, Soft, Non tender - Back Back: No CVA TTP, No spinal TTP - Extremities Extremities: No edema, No calf tenderness / cord - Neuro Neuro: Alert and oriented X 3, Normal speech - Psych Psych: Normal mood, Normal affect Results - Vitals Vitals: Vital Signs - 24 hr 10/28/17 10/28/17 10/28/17 18:33 19:22 20:15 Temperature 36.6 C Heart Rate 58 L 65 64 Respiratory 18 20 19 Rate Blood Pressure 137/90 H 228/123 H 212/117 H O2 Saturation 98 100 100 10/28/17 10/28/17 10/28/17 20:26 21:08 21:30 Temperature Heart Rate 64 63 Respiratory 20 19 18 Rate Blood Pressure 200/116 H O2 Saturation 99 99 10/28/17 10/28/17 10/28/17 21:39 22:33 23:40 Temperature 36.8 C Heart Rate 67 72 Respiratory 16 16 16 Rate Blood Pressure 216/122 H 180/104 H 169/104 H O2 Saturation 100 99 Oxygen O2 Source Room air - Labs Labs: Laboratory Tests 10/28/17 10/28/17 10/28/17 19:10 19:10 23:04 WBC 8.7 7.5 RBC 5.59 5.26 Hgb 14.3 13.6 L Hct 45.0 41.9 L MCV 80.4 79.6 L MCH 25.5 L 25.9 L MCHC 31.7 L 32.5 RDW 14.2 14.0 Plt Count 346 333 MPV 7.8 7.1 L Neut # 6.3 6.5 Lymph # 1.7 0.7 L [place] # 0.5 0.2 Eos # 0.1 0.0 Baso # 0.1 0.0 Absolute Nucleated RBC 0.00 0.00 Nucleated RBC % 0.0 0.0 Sodium 137 Potassium 4.1 Chloride 103 Carbon Dioxide 24 Anion Gap 10.0 BUN 17 Creatinine 0.9 Estimated GFR (MDRD) 116 Glucose 97 Calcium 9.6 Total Bilirubin 0.6 AST 40 ALT 63 H Alkaline Phosphatase 75 Total Protein 8.4 H Albumin 5.1 Globulin 3.4 Albumin/Globulin Ratio 1.5 Lipase 83 H PD MEDICAL DECISION MAKING - ED course ED course: 36-year-old gentleman presents maintenance for an exacerbation of chronic abdominal pain and vomiting of unclear etiology status post multiple negative workups as per our conversation the other day he has not been getting injectable narcotics in the last few visits, but his pain was quite difficult to control here. He was administered divided doses of antiemetics and nonnarcotic pain medications without claimed relief. After Ativan, because his mom thought he might be anxious he was sleeping comfortably but on arousal claimed again no improvement in his pain and was still retching. At that point given lack of improvement I did order some oral narcotics. He was unable to take these due to nausea, Given the intractable nature of his vomiting, I spoke with Dr. Cano for observation at 12:10 AM. Departure - Departure Disposition: ED Place in Observation Clinical Impression: Nausea & vomiting Qualifiers: Vomiting type: unspecified Vomiting Intractability: intractable Qualified Code( s): R11.2 - Nausea with vomiting, unspecified Cyclical vomiting Qualifiers: Vomiting Intractability: intractable Nausea presence: with nausea Qualified Code(s): G43.A1 - Cyclical vomiting, intractable Condition: Stable
[2017-10-28 19:32] LABS: ALBUMIN 5.1 g/dL (3.2-5.5); ALBUMIN/GLOBULIN RATIO 1.5 (1.0-2.2); BILIRUBIN,TOTAL 0.6 mg/dL (0.2-1.0); CALCIUM 9.6 mg/dL (8.5-10.3); CREATININE 0.9 mg/dL (0.6-1.2); TOTAL PROTEIN 8.4 g/dL (6.7-8.2)
[2017-10-28] MEDS ORDERED: PANTOPRAZOLE 40 MG VIAL IVP STA (20:04)
[2017-10-28] MEDS ORDERED: METOCLOPRAMIDE 10 MG/2 ML VIAL IVP STA (20:04)
[2017-10-28] MEDS ORDERED: GABAPENTIN 100 MG CAPSULE PO STA (20:28)
[2017-10-28] MEDS ORDERED: LORazepam 2 MG/ML VIAL IVP STA (20:53)
[2017-10-28] MEDS ORDERED: ACETAMINOPHEN 1,000 MG/100 ML 100 ML IV STA (20:53)
[2017-10-28] MEDS ORDERED: ONDANSETRON 4 MG/2 ML VIAL IVP STA ×2 (20:53→22:52)
[2017-10-28 21:00] LABS: BASOPHILS # (AUTO) 0.1 10^3/uL (0.0-0.1); EOSINOPHILS # (AUTO) 0.1 10^3/uL (0.0-0.7); EOSINOPHILS % (AUTO) 1.2 %; HGB - HEMOGLOBIN 14.3 g/dL (14.0-18.0); LYMPHOCYTES # (AUTO) 1.7 10^3/uL (1.5-3.5); LYMPHOCYTES % (AUTO) 19.7 %; MEAN CORPUSCULAR HEMOGLOBIN 25.5 pg (27.0-31.0); MEAN CORPUSCULAR HGB CONC 31.7 g/dL (32.0-36.0); MEAN CORPUSCULAR VOLUME 80.4 fL (80.0-94.0); MEAN PLATELET VOLUME 7.8 fL (7.4-11.4); MONOCYTES # (AUTO) 0.5 10^3/uL (0.0-1.0); MONOCYTES % (AUTO) 6.3 %; NEUTROPHILS # (AUTO) 6.3 10^3/uL (1.5-6.6); NEUTROPHILS % (AUTO) 71.8 %; PLT - PLATELET COUNT 346 10^3/uL (130-450); RED BLOOD COUNT 5.59 10^6/uL (4.70-6.10); RED CELL DISTRIBUTION WIDTH 14.2 % (12.0-15.0); WHITE BLOOD COUNT 8.7 x10^3/uL (4.8-10.8)
[2017-10-28] MEDS ORDERED: GABAPENTIN 100 MG CAPSULE ONE (21:45)
[2017-10-28] MEDS ORDERED: oxyCODONE 5 MG TABLET PO STA (22:41)
[2017-10-28 23:12] LABS: BASOPHILS % (AUTO) 0.7 %; HGB - HEMOGLOBIN 13.6 g/dL (14.0-18.0); LYMPHOCYTES # (AUTO) 0.7 10^3/uL (1.5-3.5); LYMPHOCYTES % (AUTO) 9.2 %; MEAN CORPUSCULAR HEMOGLOBIN 25.9 pg (27.0-31.0); MEAN CORPUSCULAR HGB CONC 32.5 g/dL (32.0-36.0); MEAN CORPUSCULAR VOLUME 79.6 fL (80.0-94.0); MEAN PLATELET VOLUME 7.1 fL (7.4-11.4); MONOCYTES # (AUTO) 0.2 10^3/uL (0.0-1.0); NEUTROPHILS # (AUTO) 6.5 10^3/uL (1.5-6.6); NEUTROPHILS % (AUTO) 87.1 %; PLT - PLATELET COUNT 333 10^3/uL (130-450); RED BLOOD COUNT 5.26 10^6/uL (4.70-6.10); WHITE BLOOD COUNT 7.5 x10^3/uL (4.8-10.8)
[2017-10-28] MEDS ORDERED: LACTATED RINGERS 1,000 ML IV STA (23:40)
[2017-10-29] MEDS ORDERED: SODIUM CHLORIDE FLUSH 0.9% 10 ML SYRINGE IVP PRN (01:34)
[2017-10-29] MEDS ORDERED: ONDANSETRON 4 MG/2 ML VIAL IVP PRN (01:34)
[2017-10-29] MEDS ORDERED: PROCHLORPERAZINE 10 MG/2 ML VIAL IVP PRN (01:34)
[2017-10-29] MEDS ORDERED: TEMAZEPAM 15 MG CAPSULE PO PRN (01:34)
[2017-10-29] MEDS ORDERED: ACETAMINOPHEN 325 MG TABLET PO PRN (01:34)
[2017-10-29] MEDS: D5NS W/20 MEQ KCL 1,000 ML IV SCH ×2 (02:30→13:40)
[2017-10-29] MEDS: ACETAMINOPHEN 1,000 MG/100 ML 100 ML IV PRN ×2 (02:33→09:19)
[2017-10-29] MEDS: LORazepam 2 MG/ML VIAL IVP PRN ×3 (02:58→09:19)
--- NOTE | 2017-10-29 04:18 | HISTORY & PHYSICAL EXAMINATION ---
DATE OF SERVICE: 10/29/2017 Physician: Nena Solis MD HISTORY OF PRESENT ILLNESS: This is a 36-year-old, white male with a history of recurrent alcoholic pancreatitis. He also has recurrent abdominal pain of unclear etiology, status post several workups over the past 6 months; the most recent was approximately April 2017, when he had a colonoscopy that was essentially normal. It is unclear if he had an EGD at that time. The patient has had 20 visits to our emergency room over this year of 2018 for abdominal pain and nausea and vomiting. He was last here earlier just this 24 hours with abdominal pain and not necessarily seeking narcotics, but he is unable to keep down even water and has continued retching and complaining of abdominal pain. He threw up oral narcotics, and was finally given a dose of IV narcotics, and is now being admitted for management of nausea, vomiting, pain and concern for dehydration. The patient has had a decrease in his nausea after the antiemetics given in the ER, but continues to have moderate abdominal pain. REVIEW OF SYSTEMS: There has been no fever. He denies any diarrhea. A comprehensive review of systems was performed and the pertinent positives are as above. FAMILY HISTORY: No contributory diseases. SOCIAL HISTORY: He is a smoker of cigarettes, drinks alcohol intermittently, illicit drug use is unknown. ALLERGIES: MORPHINE. MEDICATIONS 1. Sucralfate. 2. Phenergan 3. Omeprazole. PAST MEDICAL HISTORY: Recurrent pancreatitis and cyclical vomiting. PHYSICAL EXAMINATION GENERAL: male, supine in bed, somnolent, but awakens to his name. He claims that he has abdominal pain. VITAL SIGNS: Blood pressure 185/102, pulse is 67 in sinus rhythm, afebrile, room air saturation 99%. HEENT: Unremarkable with moist oral mucosa. NECK: No JVD in a supine position. No carotid bruits. LUNGS: Clear. HEART: Sounds normal. ABDOMEN: Scaphoid. Decreased bowel sounds. Nontender to light palpation. No organomegaly. No rebound. LEGS: No clubbing, cyanosis or edema. NEUROLOGIC: Grossly intact, but he is somnolent, but awakens and is appropriate. LABORATORIES: Normal electrolytes. Normal BUN and creatinine. AST is 40, ALT mildly elevated at 63, lipase is 83. White count 8.7 with a normal differential, hemoglobin 14.3, platelet count normal at 346. No urinalysis was done. No imaging was done. IMPRESSION/DIAGNOSES 1. Abdominal pain of unclear etiology. 2. Intractable nausea and vomiting. 3. Chronic and recurrent pancreatitis. PLAN: Admit the patient. Start IV hydration. Continue with IV antiemetics and these can be alternated between Compazine, Reglan, and Ativan to find a combination that works. Continue with pain control with Ofirmev given IV, in order to avoid IV narcotics. Consider repeat abdominal imaging and/or surgical evaluation/consultation for EGD. Give bowel rest with n.p.o. status, except ice chips. Advance diet as tolerated. Follow his electrolytes and lipase daily. CODE STATUS: FULL CODE. DEEP VENOUS THROMBOSIS PROPHYLAXIS: SCDs. ATTESTATION: The patient is expected to be discharged or transferred to another facility within 96 hours: Yes. TD: 10/29/2017 04:17 [place]
[2017-10-29 06:08] LABS: ALBUMIN/GLOBULIN RATIO 1.6 (1.0-2.2); BILIRUBIN,TOTAL 0.6 mg/dL (0.2-1.0); CALCIUM 9.4 mg/dL (8.5-10.3); CREATININE 0.9 mg/dL (0.6-1.2); MAGNESIUM 1.9 mg/dL (1.7-2.8); TOTAL PROTEIN 8.1 g/dL (6.7-8.2)
[2017-10-29] MEDS ORDERED: PANTOPRAZOLE 40 MG VIAL IVP SCH (07:00)
[2017-10-29 07:42] LABS: AMYLASE 292 U/L (28-100); LIPASE 42 U/L (22-51)
[2017-10-29] MEDS ORDERED: IOPAMIDOL-300 100 ML VIAL ONE (07:44)
[2017-10-29 07:59] LABS: CHOL/HDL RATIO 3.3 (<5.0); CHOLESTEROL 180 mg/dL; HDL CHOLESTEROL 55 mg/dL
[2017-10-29 08:19] LABS: LDL CHOLESTEROL,DIRECT 122 mg/dL; LDLD/HDL RATIO 2.2 (<3.6)
[2017-10-29] MEDS ORDERED: IOPAMIDOL-300 100 ML VIAL IVP ONE (08:45)
[2017-10-29] MEDS ORDERED: SODIUM CHLORIDE FLUSH 0.9% 10 ML SYRINGE IVP SCH (09:00)
[2017-10-29] MEDS ORDERED: POLYETHYLENE GLYCOL 3350 17 GM PACKET PO SCH (09:00)
--- NOTE | 2017-10-29 09:48 | CT Preliminary Report ---
Exam: CT ABDOMEN W/WO IMPRESSION: Normal pancreas CT. No evidence for pancreas mass or inflammation. Note that acute pancreatitis remai ns a clinical diagnosis however, which cannot be completely excluded by any imaging. [facility] SITE ID: [id number]
--- NOTE | 2017-10-29 09:55 | CT Report ---
EXAM: CT ABDOMEN WITHOUT AND WITH CONTRAST EXAM DATE: 10/29/2017 08:46 AM. CLINICAL HISTORY: Pancreatitis work-up. COMPARISONS: CT of the abdomen and pelvis 08/07/2017, 07/27/2017 and 12/15/2014. TECHNIQUE: Multiphasic CT of abdomen (pancreas) without and with IV contrast: Isovue-300 100 mL. Enteric contras t: None. Reconstructions: Coronal and sagittal. In accordance with CT protocol optimization, one or more of the following dose reduction techniques w ere utilized for this exam: automated exposure control, adjustment of mA and/or KV based on patient s ize, or use of iterative reconstructive technique. FINDINGS: Lung Bases: Unremarkable. Pancreas: Normal. No mass, inflammation, or ductal dilatation. No pseudocysts or pancreatic necrosis. Other Solid Organs: Normal. No masses or abnormal enhancement. Gallbladder/Biliary System: Normal. No visualized stones or acute inflammation. Bowel: The visualized bowel is unremarkable. Visualized portion of the appendix is unremarkable. Soft Tissues: No free fluid or adenopathy. Bones: Normal. Other: No abdominal aortic aneurysm. There is trace calcific atherosclerosis. The origins of the anay ac and superior mesenteric artery, as well as the renal arteries are widely patent. Hepatic arterial supply appears conventional. IMPRESSION: Normal pancreas CT. No evidence for pancreas mass or inflammation. Note that acute pancreatitis remai ns a clinical diagnosis however, which cannot be completely excluded by any imaging. [facility] Referring Provider Line: [phone] SITE ID: [id number]
--- NOTE | 2017-10-29 13:59 | Discharge Plan ---
Discharge Plan Disposition: Home, Self Care Condition: Stable Diet: Regular Activity Restrictions: Activity as Tolerated Shower Restrictions: No Driving Restrictions: No Weight Bearing: Full Weight Additional Instructions or Follow Up instructions: Despite our best efforts we have been unable to find out why you keep having these problems. You have had 20 ER visits and 3 CAT scans of your abdomen so far this year. I strongly suggest that you follow-up at the [facility] or another [facility] as soon as possible. Unfortunately I do not believe that we will be able to find the answers to your problems here. No Smoking: If you smoke, Please STOP! Call for help. Follow-up with: Kristin Hansen ARNP [Credentialed Staff Provider] -
--- NOTE | 2017-10-29 14:14 | DISCHARGE SUMMARY ---
Discharge Summary Admit Date: 10/28/17 Discharge Date: 10/29/17 Discharging Provider: Sharla Pena DO Primary Care Provider: SURESH Alejandre Code Status: Attempt Resuscitation Condition at Discharge: Stable Discharge Disposition: 01 Home, Self Care - DIAGNOSES Admission Diagnoses: 1. Intractable nausea and vomiting 2. Abdominal pain 3. Elevated lipase Discharge Diagnoses with Status of Each Condition: 1. Intractable nausea and vomiting- Resolved at this point however this is cyclical and expected to return. Recommend patient undergo further workup at [facility]. 2. Abdominal pain - Controlled. 3. Elevated lipase- Patient's lipase has come down to 42 which is within normal limits. His amylase remains elevated at 272. - HPI History of Present Illness: From Dr. Solis's note: Mr. Javi Jarvis is a 36-year-old male with a history of recurrent alcoholic pancreatitis. He has recurrent abdominal pain of unclear etiology, status post several workups over the past 6 months; most recent was approximately April 2017 where he had a colonoscopy that was essentially normal. Is unclear if he had an EGD at that time. The patient has had 20 visits to our emergency room over this last year of 2018 for abdominal pain/nausea and vomiting. He was here earlier just about 24 hours ago with abdominal pain and not necessarily seeking narcotics but he is unable to keep down even water and is continued retching and complaining of abdominal pain. He threw up oral narcotics, and was finally given a dose of IV narcotics, and is now being admitted for management of nausea, vomiting, and dehydration. The patient has had a decrease in his nausea after the antiemetics given in the ED but continues to have moderate pain. - HOSPITAL COURSE Hospital Course: The patient was admitted to medical surgical bed, pain medicine and antiemetics were given and the patient was rehydrated. A CAT scan was done which failed to show any etiology of the nausea and vomiting. Patient is now going to be discharged home with instructions to follow-up at the [facility] for further evaluation and treatment. - ALLERGIES Allergies/Adverse Reactions: Allergies Allergy/AdvReac Type Severity Reaction Status Date / Time morphine Allergy Hives Verified 10/20/17 15:07 - MEDICATIONS Home Medications: Ambulatory Orders Medication Instructions Recorded Confirmed Sucralfate [Carafate] 1 gm PO ACHS 10/25/17 10/29/17 Omeprazole 40 mg PO DAILY #20 capsule. 10/28/17 10/29/17 Amlodipine Besylate 10 mg PO DAILY 10/29/17 10/29/17 Ondansetron [Ondansetron Odt] 4 mg PO Q6H PRN 10/29/17 10/29/17 Oxycodone HCl/Acetaminophen 1 tab PO Q6H PRN 10/29/17 10/29/17 [Oxycodone-Acetaminophen 5-325] Promethazine HCl 25 mg PO Q6H PRN 10/29/17 10/29/17 Sertraline [Zoloft] 25 mg PO DAILY 10/29/17 10/29/17 - PHYSICAL EXAM AT DISCHARGE General Appearance: positive: Alert, Mild distress Eyes Bilateral: positive: Normal inspection, PERRL, EOMI, No lid inflammation, Conjunctivae nml, No scleral icterus ENT: positive: ENT inspection nml, Pharynx nml, No signs of dehydration Neck: positive: Nml inspection, Thyroid nml, No JVD, Trachea midline. negative : Thyromegaly Respiratory: positive: Chest non-tender, No respiratory distress, Breath sounds nml. negative: Wheezes, Rales, Rhonchi Cardiovascular: positive: Regular rate & rhythm, No murmur, No gallop Peripheral Pulses: positive: 2+ Abdomen: positive: Non-tender, No organomegaly, Nml bowel sounds, No distention. negative: Guarding, Rebound Back: positive: Nml inspection. negative: CVA tenderness (R), CVA tenderness (L ) Skin: positive: Color nml, No rash, Warm, Dry. negative: Cyanosis Extremities: positive: Non-tender, Full ROM, Nml appearance, No pedal edema Neurologic/Psychiatric: positive: Oriented x3, CN's nml (2-12), Motor nml, Sensation nml, Mood/affect nml - LABS Result Diagrams: 10/28/17 23:04 10/29/17 05:25 - DIAGNOSTIC IMAGING Diagnostic Imaging Results: Final report reviewed Diagnostic Imaging Results Comments: EXAM: CT ABDOMEN WITHOUT AND WITH CONTRAST EXAM DATE: 10/29/2017 08:46 AM. CLINICAL HISTORY: Pancreatitis work-up. COMPARISONS: CT of the abdomen and pelvis 08/07/2017, 07/27/2017 and 2014. TECHNIQUE: Multiphasic CT of abdomen (pancreas) without and with IV contrast: Isovue-300 100 mL. Enteric contrast: None. Reconstructions: Coronal and sagittal. In accordance with CT protocol optimization, one or more of the following dose reduction techniques were utilized for this exam: automated exposure control, adjustment of mA and/or KV based on patient size, or use of iterative reconstructive technique. FINDINGS: Lung Bases: Unremarkable. Pancreas: Normal. No mass, inflammation, or ductal dilatation. No pseudocysts or pancreatic necrosis. Other Solid Organs: Normal. No masses or abnormal enhancement. Gallbladder/Biliary System: Normal. No visualized stones or acute inflammation. Bowel: The visualized bowel is unremarkable. Visualized portion of the appendix is unremarkable. Soft Tissues: No free fluid or adenopathy. Bones: Normal. Other: No abdominal aortic aneurysm. There is trace calcific atherosclerosis. The origins of the celiac and superior mesenteric artery, as well as the renal arteries are widely patent. Hepatic arterial supply appears conventional. IMPRESSION: Normal pancreas CT. No evidence for pancreas mass or inflammation. Note that acute pancreatitis remains a clinical diagnosis however, which cannot be completely excluded by any imaging. - FOLLOW UP Follow Up: Follow-up with Kristin Hansen next week and I strongly suggest that you follow-up at the [facility] for further evaluation and testing. - TIME SPENT Time Spent in Discharge (Minutes): 35
[2017-10-29 14:36] VITALS: BP 121/74
== END 2017-10-29 14:50 | disposition home or self-care (01) | DRG 392 ==
LOC: ED 18:30 → MS2 10-29 01:34
PROVIDERS: ADMIT Internal Medicine; ATTEND Hospitalist
DX: R11.2 Nausea with vomiting, unspecified (principal); K86.0 Alcohol-induced chronic pancreatitis; R10.9 Unspecified abdominal pain; F17.210 Nicotine dependence, cigarettes, uncomplicated; K29.70 Gastritis, unspecified, without bleeding; R03.0 Elevated blood-pressure reading, without diagnosis of hypertension; Z72.89 Other problems related to lifestyle; Z79.899 Other long term (current) drug therapy
CPT/HCPCS: 36415; 74170; 80048; 80053; 80061; 82150; 83690; 83721; 83735; 85025; 96365; 96366; 96375; 96376; 99283; 99284; 99285

== ENCOUNTER 2017-10-30 21:14 | Outpatient (CLI) | payer MEDICAID | END 2017-10-30 21:15 | disposition short-term general hospital (02) | LOC: EMS 21:14 | PROVIDERS: ATTEND Surgery | DX: R10.12 Left upper quadrant pain (principal); R11.2 Nausea with vomiting, unspecified | CPT/HCPCS: A0425; A0427; A0888 ==

== ENCOUNTER 2017-11-07 13:36 | Outpatient (CLI) | payer MEDICAID ==
[2017-11-07 19:11] LABS: AMYLASE 102 U/L (28-100); LIPASE 26 U/L (22-51)
== END 2017-11-07 13:37 | disposition home or self-care (01) ==
LOC: LAB.N 13:36
PROVIDERS: ATTEND Nurse Practitioner Gerontology
DX: K86.1 Other chronic pancreatitis (principal)
CPT/HCPCS: 36415; 82150; 83690

== ENCOUNTER 2017-11-16 07:57 | Outpatient (CLI) | payer MEDICAID | END 2017-11-16 07:58 | disposition critical access hospital (66) | LOC: EMS 07:57 | PROVIDERS: ATTEND Surgery | DX: R10.9 Unspecified abdominal pain (principal) | CPT/HCPCS: A0425; A0429 ==

== ENCOUNTER 2017-11-16 08:14 | Emergency (ER) | payer MEDICAID ==
[2017-11-16] MEDS ORDERED: HALOPERIDOL 5 MG/ML VIAL IVP STA (08:22)
[2017-11-16] MEDS ORDERED: SODIUM CHLORIDE 0.9% 1,000 ML IV ONE (08:22)
--- NOTE | 2017-11-16 08:30 | ED Physician Documentation ---
History of Present Illness - Stated complaint Stated Complaint: ABD PX - Chief complaint Chief Complaint: Abd Pain - Additonal information Additional information: hx from EMS pt and EMR and [facility] 36 male [facility]A for abd pain NVD onset today no bad food no travel no contacts with same no prior abd surgeries hx of same many many times per [facility] 18 ER visits for same in last year per pt and [facility] pt is thought to perhaps have pancreatitis and is being referred to a specialist at [facility] per EMR his highest lipase in last 3 yr was 267, he has had nl CTAP, nl MRCP, nl RUQ sono, nl EGD denies EtOH per [facility] prior drinker sober X 2 yr he uses marijuana - his sx are often relieved with hot showers Review of Systems Constitutional: denies: Fever Cardiac: denies: Palpitations Respiratory: denies: Dyspnea GI: reports: Abdominal Pain, Nausea, Vomiting, Diarrhea. denies: Hematemesis, Bloody / black stool : denies: Dysuria Endocrine: denies: Easy bruising / bleeding Immunocompromised: denies: Immunocompromised PD PAST MEDICAL HISTORY - Past Medical History Cardiovascular: Hypertension Respiratory: None Neuro: None Endocrine/Autoimmune: None GI: Pancreatitis : None HEENT: None Psych: None Musculoskeletal: None Derm: None - Past Surgical History Past Surgical History: Yes Ortho: Other - Present Medications Home Medications: Ambulatory Orders Medication Instructions Recorded Confirmed Sucralfate [Carafate] 1 gm PO ACHS 10/25/17 11/16/17 Amlodipine Besylate 10 mg PO DAILY 10/29/17 11/16/17 Sertraline [Zoloft] 25 mg PO DAILY 10/29/17 11/16/17 Omeprazole [PriLOSEC] 1 tab DAILY 11/16/17 11/16/17 - Allergies Allergies/Adverse Reactions: Allergies Allergy/AdvReac Type Severity Reaction Status Date / Time morphine Allergy Hives Verified 11/16/17 08:21 - Social History Does the pt smoke?: Yes Smoking Status: Current every day smoker Does the pt drink ETOH?: No Does the pt have substance abuse?: Yes - Immunizations Immunizations are current?: No - POLST Patient has POLST: No POLST Status: Full Code PD ED PE NORMAL - Vitals Vital signs reviewed: Yes - Neck Neck: Supple, no meningeal sign - Cardiac Cardiac: RRR - Respiratory Respiratory: No respiratory distress, Clear bilaterally - Abdomen Abdomen: No organomegaly (+ BS non distended, TTP across upper abd with vol guarding, no pulsatile mass, no lower abd pain) - Derm Derm: Normal color - Neuro Neuro: Alert and oriented X 3 Results - Vitals Vitals: Vital Signs - 24 hr 11/16/17 08:10 Temperature 36.7 C Heart Rate 53 L Respiratory 16 Rate Blood Pressure 125/87 H O2 Saturation 99 Oxygen O2 Source Room air - Tele (time rhythm occurred) 930 Telemetry / rhythm strip: Other - Labs Labs: Laboratory Tests 11/16/17 08:54 Sodium 136 Potassium 4.1 Chloride 102 Carbon Dioxide 27 Anion Gap 7.0 BUN 17 Creatinine 1.0 Estimated GFR (MDRD) 102 Glucose 97 Calcium 9.5 Total Bilirubin 0.4 AST 24 ALT 38 Alkaline Phosphatase 75 Total Protein 8.0 Albumin 4.6 Globulin 3.4 Albumin/Globulin Ratio 1.4 Lipase 39 PD MEDICAL DECISION MAKING - ED course ED course: felt better after haldol 5 IV Departure - Departure Disposition: 01 Home, Self Care Clinical Impression: Cyclical vomiting Qualifiers: Vomiting Intractability: unspecified Nausea presence: with nausea Qualified Code(s): G43.A0 - Cyclical vomiting, not intractable Condition: Good Instructions: ED Abdominal Pain Unkn Cause Follow-Up: Kristin Hansen ARNP [Primary Care Provider] - Comments: I reviewed your chart and you have had a normal CT scan, normal MRCP, normal ultrasound and you say that your endoscopy was normal too. You have at times had slightly elevated pancreas enzymes but not severe elevations I suspect that you pain may be related to marijuana use - even though marijuana sometimes gives you temporary relief of the symptoms, it may actually be the underlying cause of your abdominal pains. I strongly recommend that you stop all marijuana use - it may take several weeks or months after stopping for the symptoms to subside but I suspect that you will get better Forms: Activity restrictions
[2017-11-16 09:11] LABS: ALBUMIN 4.6 g/dL (3.2-5.5); ALBUMIN/GLOBULIN RATIO 1.4 (1.0-2.2); BILIRUBIN,TOTAL 0.4 mg/dL (0.2-1.0); CALCIUM 9.5 mg/dL (8.5-10.3)
[2017-11-16 09:42] VITALS: BP 111/83
== END 2017-11-16 09:43 | disposition home or self-care (01) ==
LOC: EDUNIT# → ED 08:14
DX: K31.89 Other diseases of stomach and duodenum (principal); R11.14 Bilious vomiting; I10 Essential (primary) hypertension; F17.200 Nicotine dependence, unspecified, uncomplicated
CPT/HCPCS: 36415; 80053; 83690; 99284

== ENCOUNTER 2017-11-16 11:44 | Outpatient (CLI) | payer MEDICAID | END 2017-11-16 11:45 | disposition critical access hospital (66) | LOC: EMS 11:44 | PROVIDERS: ATTEND Surgery | DX: R10.9 Unspecified abdominal pain (principal) | CPT/HCPCS: A0425; A0429 ==

== ENCOUNTER 2017-11-16 12:03 | Observation (INO) | payer MEDICAID ==
[2017-11-16] MEDS ORDERED: SODIUM CHLORIDE 0.9% 1,000 ML IV ONE ×2 (12:15→16:57)
[2017-11-16] MEDS ORDERED: HALOPERIDOL 5 MG/ML VIAL IVP STA ×2 (12:15→16:58)
--- NOTE | 2017-11-16 12:58 | ED Physician Documentation ---
History of Present Illness - Stated complaint Stated Complaint: ABD PX - Chief complaint Chief Complaint: Abd Pain - Additonal information Additional information: see my note from earlier 36 male long standing recurrent abd pain NVD has had extensive wup all neg this is his 29th visit to [facility] in the last 9 months uses marijuana relieved by hot showers seen earlier for same labs nl better with haldol dced comes back by EMS again for same sx no travel bad food sick contacts etc Review of Systems Constitutional: denies: Fever Cardiac: denies: Chest pain / pressure Respiratory: denies: Dyspnea GI: reports: Abdominal Pain, Nausea, Vomiting, Diarrhea Immunocompromised: denies: Immunocompromised PD PAST MEDICAL HISTORY - Past Medical History Cardiovascular: Hypertension Respiratory: None Neuro: None Endocrine/Autoimmune: None GI: Pancreatitis : None HEENT: None Psych: None Musculoskeletal: None Derm: None - Past Surgical History Past Surgical History: Yes Ortho: Other - Present Medications Home Medications: Ambulatory Orders Medication Instructions Recorded Confirmed Sucralfate [Carafate] 1 gm PO ACHS 10/25/17 11/16/17 Amlodipine Besylate 10 mg PO DAILY 10/29/17 11/16/17 Sertraline [Zoloft] 25 mg PO DAILY 10/29/17 11/16/17 Omeprazole [PriLOSEC] 1 tab DAILY 11/16/17 11/16/17 - Allergies Allergies/Adverse Reactions: Allergies Allergy/AdvReac Type Severity Reaction Status Date / Time morphine Allergy Hives Verified 11/16/17 08:21 - Social History Does the pt smoke?: Yes Smoking Status: Current every day smoker Does the pt drink ETOH?: No Does the pt have substance abuse?: Yes - Immunizations Immunizations are current?: No - POLST Patient has POLST: No POLST Status: Full Code PD ED PE NORMAL - Vitals Vital signs reviewed: Yes - Cardiac Cardiac: RRR - Respiratory Respiratory: No respiratory distress - Abdomen Abdomen: Soft, Other (TTP upper abd with vol guarding) - Derm Derm: Normal color - Neuro Neuro: Alert and oriented X 3 Results - Vitals Vitals: Vital Signs - 24 hr 11/16/17 11/16/17 11/16/17 12:21 13:35 17:23 Temperature 36.7 C Heart Rate 51 L 61 53 L Respiratory 16 23 20 Rate Blood Pressure 211/115 H 192/104 H 168/100 H O2 Saturation 98 97 98 11/16/17 18:42 Temperature Heart Rate 55 L Respiratory 24 Rate Blood Pressure 187/87 H O2 Saturation 99 Oxygen O2 Source Room air - Tele (time rhythm occurred) 7328 Telemetry / rhythm strip: Other (nl QT) PD MEDICAL DECISION MAKING - ED course ED course: no relief with haldol this time pt [facility] states no parenteral narcotics - also critically short of morphine dilaudid and fentanyl , they are being reserved for trauma and OR - pt advised tried ofirmev toradol and phenergan pt states still no relief tried more phenergan and benadryl and PO oxycodone still no relief will continue IVF, change to maintenance it has been several hr since haldol and nl QT and haldol worked earlier today so will try one more dose still no relief states he cannot tolerate anything PO has been admitted for IVF etc for same before have been trying to help him improve enough for dc for 8 hr, plus the visit earlier today not better spoke to hospitalist will admit to obs Departure - Departure Disposition: ED Place in Observation Clinical Impression: Cyclical vomiting Condition: Good Instructions: ED Abdominal Pain Unkn Cause
[2017-11-16] MEDS ORDERED: KETOROLAC 30 MG/ML VIAL IVP STA (13:53)
[2017-11-16] MEDS ORDERED: PROMETHAZINE INJ 25 MG in SODIUM CHLORIDE 0.9% 50 ML IV STA (13:54)
[2017-11-16] MEDS ORDERED: ACETAMINOPHEN 1,000 MG/100 ML 100 ML IV STA (13:54)
[2017-11-16] MEDS ORDERED: oxyCODONE 5 MG TABLET PO STA (15:39)
[2017-11-16] MEDS ORDERED: PROMETHAZINE INJ 12.5 MG in SODIUM CHLORIDE 0.9% 50 ML IV STA (15:39)
[2017-11-16] MEDS ORDERED: diphenhydrAMINE INJ 50 MG/ML VIAL IVP STA (15:39)
[2017-11-16] MEDS ORDERED: DEXTROSE 5%-0.45% NACL 1,000 ML IV ONE (16:57)
[2017-11-16] MEDS ORDERED: oxyCODONE 5 MG TABLET PO PRN (19:58)
[2017-11-16] MEDS ORDERED: PROCHLORPERAZINE 10 MG/2 ML VIAL IVP PRN (19:58)
[2017-11-16] MEDS ORDERED: SODIUM CHLORIDE FLUSH 0.9% 10 ML SYRINGE IVP PRN (19:58)
[2017-11-16] MEDS ORDERED: ONDANSETRON 4 MG/2 ML VIAL IVP PRN (19:58)
[2017-11-16] MEDS ORDERED: ONDANSETRON ODT 4 MG TABLET TL PRN (19:58)
[2017-11-16] MEDS ORDERED: LORazepam 2 MG/ML VIAL IVP PRN (20:04)
[2017-11-16] MEDS ORDERED: diphenhydrAMINE INJ 50 MG/ML VIAL IVP PRN (20:05)
[2017-11-16] MEDS: PANTOPRAZOLE 40 MG TABLET PO SCH (21:29)
[2017-11-16] MEDS: SODIUM CHLORIDE 0.9% 1,000 ML IV SCH (21:30)
[2017-11-16] MEDS: hydrALAZINE INJ 20 MG/ML VIAL IVP SCH (22:26)
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
[2017-11-17] MEDS: SODIUM CHLORIDE FLUSH 0.9% 10 ML SYRINGE IVP SCH ×2 (02:40→09:41)
[2017-11-17] MEDS: SODIUM CHLORIDE 0.9% 1,000 ML IV SCH (06:48)
[2017-11-17] MEDS: PANTOPRAZOLE 40 MG TABLET PO SCH (06:48)
[2017-11-17] MEDS: hydrALAZINE INJ 20 MG/ML VIAL IVP SCH (06:52)
[2017-11-17] MEDS ORDERED: POLYETHYLENE GLYCOL 3350 17 GM PACKET PO SCH (09:00)
[2017-11-17 09:42] VITALS: BP 135/81
--- NOTE | 2017-11-17 12:54 | Discharge Plan ---
Discharge Plan Disposition: Home, Self Care Condition: Good Prescriptions: Ondansetron HCl [Zofran] 8 mg PO Q8HR PRN #30 tablet PRN Reason: Nausea / Vomiting Diet: Regular Activity Restrictions: No Restrictions Shower Restrictions: No Driving Restrictions: No Instruction Topics: ED Abdominal Pain Unkn Cause Additional Instructions or Follow Up instructions: You presented to the emergency department with abdominal pain, nausea and vomiting. Your symptoms did not resolve with treatment in the emergency department alone therefore you are placed in observation and given further hydration and medications for pain and nausea. It appears that you are feeling much better now and were able to tolerate her lunch without having any symptoms therefore you can now go home. I am prescribing you Zofran which he can pharmacy picking tech at your pharmacy. This medication will help with any further nausea. I advised that you drink plenty of fluids to keep well-hydrated. You need to follow-up with your primary care physician and get referred down to [facility] for further evaluation for the cause of your abdominal pain and symptoms as we still do not have a diagnosis for why you are experiencing any symptoms. No Smoking: If you smoke, Please STOP! Call for help.
--- NOTE | 2017-11-17 12:57 | DISCHARGE SUMMARY ---
Discharge Summary Admit Date: 11/16/17 Discharge Date: 11/17/17 Discharging Provider: Jonny Barnes MD Primary Care Provider: Kristin Hansen [facility] Code Status: Attempt Resuscitation Condition at Discharge: Good Discharge Disposition: 01 Home, Self Care - DIAGNOSES Admission Diagnoses: 1. Intractable nausea and vomiting 2. Hypertension 3. Cataplexy Discharge Diagnoses with Status of Each Condition: 1. Intractable nausea and vomiting: Improved 2. Abdominal pain: Stable 3. Hypertension: Stable - HPI History of Present Illness: Patient is a 36-year-old -Luxembourger gentleman who has had intermittent left upper quadrant abdominal pain since approximately 2007. At that time, he was drinking close to 2 sixpacks of beer a day and was diagnosed with pancreatitis from alcohol. Between then and now, he has relatively quiescent disease state up until 2014. He then had another episode of left upper quadrant abdominal pain for which he was admitted for pancreatitis. From 2014 quiescent. But between 2016 and now, he has been admitted 05/18/2015, 04/03, 04/27/2017, 05/27/2017 and 10/29/2017. In addition to our hospital he has been admitted twice to [facility] the same period of time. All of these admissions have been for intractable nausea and vomiting with left upper quadrant abdominal pain. He has had lipase as high as 900 or so at [facility]. For us here his highest lipase has been 327. He has not drank since 2015. In addition to the admissions this gentleman has had 20 ER visits since July this year alone. Today would be his 21st visit. Again they are all for the same problem of intractable nausea and vomiting with left upper quadrant abdominal pain. Workup has had 6 CT scans of the abdomen, and MRCP. An ultrasound of the abdomen done here. An ultrasound of the abdomen done at [facility]. He has had a colonoscopy in 04/2017 and he has had an EGD in . None of these studies have delineated why this uncomfortable gentleman has an elevated amylase, nor has it delineated any anatomical abnormalities. He has had an intact biliary and pancreatic ductal system that appears grossly normal on MRCP. He has had no stones or thickened gallbladder on ultrasound or his abdominal CTs. He is being followed by nurse practitioner Kristin Hansen for his primary care provider. She last saw him on 11/09/2017 and he appears to be compliant with most of his visits. She is in the process of getting ready to refer him to the [facility]. He has already been seen by Dr. Miller at [facility] gastroenterology. Dr. Miller is the one that recommended the MRCP. Other than the etiology of this pancreatitis being alcohol induced, Dr. Miller's note does not include an extensive differential. In 2016 this patient weighed close to 82 kg. With the his episodes of nausea and vomiting unable to eat, in spite of severe hunger, his weight has drifted down to 63.5 kg. His current bout of abdominal pain started yesterday. 1 of his brothers had come over and they had fixed a car and got an engine running. The patient went inside and was just starving. He wanted to eat so badly because he was so hungry. He ate chicken, salad, ribs, potatoes. And then the nausea and vomiting with abdominal pain started. He has not had any diarrhea. He has not been able to keep anything down since yesterday and his mom brought him into the emergency room today. He spent approximately 7 hours in the emergency department trying to control his nausea and vomiting. He is well- known to the emergency room staff and they tried the same things they usually do with him. He was given 1 L of normal saline, Zofran, oral Roxicodone, Benadryl, Haldol, ketorolac and Compazine. The patient continued to have emesis and was placed in observation. - HOSPITAL COURSE Hospital Course: Through the patient's observation stay the patient was given antiemetics and IV fluids. The patient had no further episodes of vomiting and stated his nausea and abdominal pain had resolved. The patient was initially made n.p.o. and then was allowed to eat lunch. Although the patient did not eat his entire lunch he was able to keep his lunch down and had no nausea or abdominal pain. The patient was discharged home in stable condition and was given a prescription for Zofran at the time of discharge. The patient will follow up with his primary care physician and continue in the process of finding a specialist at the [facility]. - ALLERGIES Allergies/Adverse Reactions: Allergies Allergy/AdvReac Type Severity Reaction Status Date / Time morphine Allergy Hives Verified 11/16/17 08:21 - MEDICATIONS Home Medications: Ambulatory Orders Medication Instructions Recorded Confirmed Sucralfate [Carafate] 1 gm PO ACHS 10/25/17 11/17/17 Amlodipine Besylate 10 mg PO DAILY 10/29/17 11/17/17 Sertraline [Zoloft] 25 mg PO DAILY 10/29/17 11/17/17 Omeprazole [PriLOSEC] 1 cap PO QPM 11/16/17 11/17/17 Ondansetron HCl [Zofran] 8 mg PO Q8HR PRN #30 tablet 11/17/17 raNITIdine HCl [Ranitidine HCl] 300 mg PO DAILY 11/17/17 11/17/17 - PHYSICAL EXAM AT DISCHARGE General Appearance: positive: No acute distress, Alert, Other (Thin) Eyes Bilateral: positive: Normal inspection, PERRL, EOMI, No lid inflammation, Conjunctivae nml, No scleral icterus ENT: positive: ENT inspection nml, Pharynx nml, No signs of dehydration. negative: Purulent nasal drainage, Pharyngeal erythema, Oral lesions Neck: positive: Nml inspection, Thyroid nml, No JVD, Trachea midline. negative : Lymphadenopathy (R), Lymphadenopathy (L), Carotid bruit, Tracheal deviation Respiratory: positive: Chest non-tender, No respiratory distress, Breath sounds nml. negative: Wheezes, Rales, Rhonchi Cardiovascular: positive: Regular rate & rhythm, No murmur, No gallop Peripheral Pulses: positive: 2+ Abdomen: positive: Non-tender, No organomegaly, Nml bowel sounds, No distention. negative: Guarding, Rebound, Hepatomegaly Back: positive: Nml inspection. negative: CVA tenderness (R), CVA tenderness (L ) Skin: positive: Color nml, No rash, Warm. negative: Cyanosis, Diaphoresis, Pallor Extremities: positive: Non-tender, Full ROM, Nml appearance, No pedal edema Neurologic/Psychiatric: positive: Oriented x3, CN's nml (2-12), Motor nml, Sensation nml - FOLLOW UP Follow Up: Patient will follow up with his primary care physician in the next week. He is in the process of getting a referral down to the [facility] to see a specialist in GI regarding his chronic abdominal pain and symptoms of nausea and vomiting. - TIME SPENT Time Spent in Discharge (Minutes): 40
== END 2017-11-17 13:57 | disposition home or self-care (01) ==
LOC: EDUNIT# → ED 12:03 → OBS 19:59
PROVIDERS: ADMIT Specialist; ATTEND Internal Medicine
DX: K31.89 Other diseases of stomach and duodenum (principal); R11.14 Bilious vomiting; R10.12 Left upper quadrant pain; G89.29 Other chronic pain; I10 Essential (primary) hypertension; G47.411 Narcolepsy with cataplexy; F41.8 Other specified anxiety disorders; F17.210 Nicotine dependence, cigarettes, uncomplicated; Z86.718 Personal history of other venous thrombosis and embolism; Z87.19 Personal history of other diseases of the digestive system; Z63.79 Other stressful life events affecting family and household; F12.90 Cannabis use, unspecified, uncomplicated
CPT/HCPCS: 36415; 80053; 83690; 96361; 96365; 96366; 96367; 96374; 96375; 96376; 99284; A9270; G0378; J0131; J1200; J7040

== ENCOUNTER 2017-11-18 07:17 | Outpatient (CLI) | payer MEDICAID | END 2017-11-18 07:18 | disposition critical access hospital (66) | LOC: EMS 07:17 | PROVIDERS: ATTEND Surgery | DX: R10.9 Unspecified abdominal pain (principal) | CPT/HCPCS: A0425; A0429 ==

== ENCOUNTER 2017-11-18 07:35 | Observation (INO) | payer MEDICAID ==
[2017-11-18] MEDS ORDERED: SODIUM CHLORIDE 0.9% 2,000 ML IV ONE (07:42)
[2017-11-18] MEDS ORDERED: DEXTROSE 5%-0.45% NACL 1,000 ML IV ONE (07:42)
[2017-11-18] MEDS ORDERED: HALOPERIDOL 5 MG/ML VIAL IVP STA (07:42)
--- NOTE | 2017-11-18 07:44 | ED Physician Documentation ---
History of Present Illness - Stated complaint Stated Complaint: ABD PX - Additonal information Additional information: hx from pt and EMR 36 male long standing chronic abd pain with NVD has had an extensive work up including CTAP. MRCP, ruq sono, EGD colonoscopy all nl has had elevated lipase at times, highest at 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 uses marijuana, states sx improved with marijuana and hot showers, we have discussed that stopping marijuana may relieve the symptoms has had 30 ER visits in the last year and multiple admissions most recently seen by me 2 days ago, BIBA seen and txed with haldol and better so dced, then returned within an hr or two with same sx, txed with more haldol, phenergan, toradol, ofirmev, pepcid but did not improve and so was admitted for intractable NV and abd pain, was dced the next day, pt states he has not been able to eat or drink for several days now he has had sig weight loss PMD is planning to refer him to [facility] Review of Systems Constitutional: denies: Fever Throat: denies: Sore throat Cardiac: denies: Chest pain / pressure Respiratory: denies: Dyspnea GI: reports: Abdominal Pain, Nausea, Vomiting, Diarrhea Endocrine: denies: Easy bruising / bleeding Immunocompromised: denies: Immunocompromised PD PAST MEDICAL HISTORY - Past Medical History Cardiovascular: Hypertension Respiratory: None Neuro: None Endocrine/Autoimmune: None GI: Pancreatitis : None HEENT: None Psych: None Musculoskeletal: None Derm: None - Past Surgical History Past Surgical History: Yes Ortho: Other - Present Medications Home Medications: Ambulatory Orders Medication Instructions Recorded Confirmed Sucralfate [Carafate] 1 gm PO ACHS 10/25/17 11/17/17 Amlodipine Besylate 10 mg PO DAILY 10/29/17 11/17/17 Sertraline [Zoloft] 25 mg PO DAILY 10/29/17 11/17/17 Omeprazole [PriLOSEC] 20 mg PO QPM 11/16/17 11/17/17 Ondansetron HCl [Zofran] 8 mg PO Q8HR PRN #30 tablet 11/17/17 raNITIdine HCl [Ranitidine HCl] 300 mg PO DAILY 11/17/17 11/17/17 - Allergies Allergies/Adverse Reactions: Allergies Allergy/AdvReac Type Severity Reaction Status Date / Time morphine Allergy Hives Verified 11/18/17 07:47 - Social History Does the pt smoke?: Yes Smoking Status: Current every day smoker Does the pt drink ETOH?: No Does the pt have substance abuse?: Yes - Immunizations Immunizations are current?: No - POLST Patient has POLST: No POLST Status: Full Code PD ED PE NORMAL - Vitals Vital signs reviewed: Yes (B again very high, last visit dec when txed sx, will recheck) - General General: Alert and oriented X 3, Other (appears miserable tired and is retching) - Neck Neck: Supple, no meningeal sign - Cardiac Cardiac: RRR - Respiratory Respiratory: No respiratory distress - Abdomen Abdomen: Soft, Other (in pain even without papation, most tender LUQ, no rebound or gaurding) Results - Vitals Vitals: Vital Signs - 24 hr 11/18/17 07:37 Temperature 37.1 C Heart Rate 63 Blood Pressure 201/114 H O2 Saturation 99 Oxygen O2 Source Room air - Labs Labs: Laboratory Tests 11/18/17 11/18/17 09:00 09:00 WBC 9.7 RBC 5.13 Hgb 13.5 L Hct 41.1 L MCV 80.3 MCH 26.3 L MCHC 32.8 RDW 13.9 Plt Count 352 MPV 6.8 L Neut # 8.1 H Lymph # 1.0 L [place] # 0.5 Eos # 0.0 Baso # 0.0 Absolute Nucleated RBC 0.01 Nucleated RBC % 0.1 Sodium 137 Potassium 3.4 L Chloride 105 Carbon Dioxide 25 Anion Gap 7.0 BUN 26 H Creatinine 0.9 Estimated GFR (MDRD) 116 Glucose 106 H Calcium 8.7 Total Bilirubin 0.5 AST 24 ALT 31 Alkaline Phosphatase 66 Total Protein 7.2 Albumin 4.2 Globulin 3.0 Albumin/Globulin Ratio 1.4 Lipase 59 H PD MEDICAL DECISION MAKING - ED course ED course: gave 2 L NS and D5 1/2 NS with 20K as well as haldol, phenergan, ofirmev, toradol, pepcid and pt still has intractable pain and nausea and cannot tolerate PO will re-admit spoke to hospitalist at 935 AM Departure - Departure Disposition: ED Place in Observation Clinical Impression: Vomiting, Abdominal pain, Dehydration, Hypokalemia, Hypertension
[2017-11-18] MEDS ORDERED: KETOROLAC 60 MG/2 ML VIAL IVP STA (07:59)
[2017-11-18] MEDS ORDERED: ACETAMINOPHEN 1,000 MG/100 ML 100 ML IV STA (07:59)
[2017-11-18] MEDS ORDERED: FAMOTIDINE 20 MG/50 ML 50 ML IV ONE (07:59)
[2017-11-18] MEDS ORDERED: KETOROLAC 30 MG/ML VIAL IVP STA (08:12)
[2017-11-18] MEDS ORDERED: PROMETHAZINE 25 MG/1 ML VIAL IM STA (08:12)
[2017-11-18 09:06] LABS: BASOPHILS % (AUTO) 0.5 %; EOSINOPHILS % (AUTO) 0.3 %; HGB - HEMOGLOBIN 13.5 g/dL (14.0-18.0); LYMPHOCYTES % (AUTO) 10.6 %; MEAN CORPUSCULAR HEMOGLOBIN 26.3 pg (27.0-31.0); MEAN CORPUSCULAR HGB CONC 32.8 g/dL (32.0-36.0); MEAN CORPUSCULAR VOLUME 80.3 fL (80.0-94.0); MEAN PLATELET VOLUME 6.8 fL (7.4-11.4); MONOCYTES # (AUTO) 0.5 10^3/uL (0.0-1.0); MONOCYTES % (AUTO) 5.5 %; NEUTROPHILS # (AUTO) 8.1 10^3/uL (1.5-6.6); NEUTROPHILS % (AUTO) 83.1 %; PLT - PLATELET COUNT 352 10^3/uL (130-450); RED BLOOD COUNT 5.13 10^6/uL (4.70-6.10); RED CELL DISTRIBUTION WIDTH 13.9 % (12.0-15.0); WHITE BLOOD COUNT 9.7 x10^3/uL (4.8-10.8)
[2017-11-18 09:19] LABS: ALBUMIN 4.2 g/dL (3.2-5.5); ALBUMIN/GLOBULIN RATIO 1.4 (1.0-2.2); BILIRUBIN,TOTAL 0.5 mg/dL (0.2-1.0); CALCIUM 8.7 mg/dL (8.5-10.3); CREATININE 0.9 mg/dL (0.6-1.2); TOTAL PROTEIN 7.2 g/dL (6.7-8.2)
[2017-11-18] MEDS ORDERED: PROCHLORPERAZINE 10 MG/2 ML VIAL IVP PRN (10:20)
[2017-11-18] MEDS ORDERED: SODIUM CHLORIDE FLUSH 0.9% 10 ML SYRINGE IVP PRN (10:20)
[2017-11-18] MEDS ORDERED: PROMETHAZINE 25 MG/1 ML VIAL IM PRN (10:20)
[2017-11-18] MEDS ORDERED: ONDANSETRON 4 MG/2 ML VIAL IVP PRN (10:20)
[2017-11-18] MEDS ORDERED: ZOLPIDEM 5 MG TABLET PO PRN (10:20)
[2017-11-18] MEDS ORDERED: ACETAMINOPHEN 325 MG TABLET PO PRN (10:20)
[2017-11-18] MEDS ORDERED: MORPHINE 2 MG/ML SYRINGE IVP PRN ×2 (10:20→14:05)
--- NOTE | 2017-11-18 11:13 | HISTORY & PHYSICAL EXAMINATION ---
Chief Complaint - Chief Complaint Chief Complaint: Nausea, vomiting and abdominal pain History of Present Illness - Admitted From Admitted From:: Emergency department - History Obtained From Records Reviewed: Yes History obtained from: Patient Exam Limitations: None - History of Present Illness HPI Comment/Other: Patient is a 36-year-old -[place] gentleman who has had intermittent left upper quadrant abdominal pain since approximately 2007. 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 Between then and now, he has relatively quiescent disease state up until 2014. He then had another episode of left upper quadrant abdominal pain for which he was admitted for pancreatitis. From 2014 till 2016 his disease state was quiescent. But between 2016 and now, he has been admitted 05/18/2015, 04/03/2017, 04/27/2017, 05/27/2017, 10/29/2017 and again on 11/16/2017. In addition to our hospital he has been admitted twice to [facility] in the same period of time. All of these admissions have been for intractable nausea and vomiting with left upper quadrant abdominal pain. He has had lipase as high as 900 or so at [facility]. For us here his highest lipase has been 327. He has not drank since 2016. In addition to the admissions this gentleman has had 21 ER visits since July this year alone. Today would be his nd visit. Again they are all for the same problem of intractable nausea and vomiting with left upper quadrant abdominal pain. Workup has had 6 CT scans of the abdomen, and MRCP. An ultrasound of the abdomen done here. An ultrasound of the abdomen done at [facility]. He has had a colonoscopy in 04/2017 and he has had an EGD in 07/2017. None of these studies have delineated why this uncomfortable gentleman has an elevated amylase, nor has it delineated any anatomical abnormalities. He has had an intact biliary and pancreatic ductal system that appears grossly normal on MRCP. He has had no stones or thickened gallbladder on ultrasound or his abdominal CTs. He is being followed by nurse practitioner Kristin Hansen for his primary care provider. She last saw him on 11/09/2017 and he appears to be compliant with most of his visits. She is in the process of getting ready to refer him to the [facility]. He has already been seen by Dr. Miller at [facility] gastroenterology. Dr. Miller is the one that recommended the MRCP. Other than the etiology of this pancreatitis being alcohol induced, Dr. Miller's note does not include an extensive differential. In 2016 this patient weighed close to 82 kg. With the his episodes of nausea and vomiting unable to eat, in spite of severe hunger, his weight has drifted down to 63.5 kg. The patient was discharged from our hospital yesterday after being placed in observation for intractable nausea, vomiting and abdominal pain. At the time of discharge the patient appeared to be doing well he had eaten his lunch and had no symptoms of nausea or vomiting. The patient also had no abdominal pain when he was discharged home. 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 He states that it was a dull and burning pain. He states that it was similar to the pain he has had in the past. He states that he did try to take an antacid and an antiemetic for the pain and the nausea that he began to feel. He states that this did not improve his symptoms and that symptoms in fact became worse. He states by the payroll professional he became very nauseous and then had several episodes of emesis. The patient decided that he was not getting better at home and came into the emergency department. The patient does also admit to a headache and feeling of fatigue. He denies any diaphoresis or palpitations. The patient denies any fevers or chills. He denies any sick contacts at home. He denies eating anything unusual last night. The patient does admit to smoking marijuana daily but states he has not smoked for the past 3 days and did not smoke any marijuana last night. The patient denies drinking alcohol. The patient denies any blurred vision, runny nose, sore throat, nasal congestion , difficulty swallowing, chest pain, shortness of air, orthopnea, PND, increased lower extremity swelling, diarrhea, constipation, urinary urgency, urinary frequency, dysuria, joint pain, joint swelling, muscle aches, back pain , neck stiffness, rashes, hair loss or any focal neurologic deficits. On presentation to the emergency department the patient did appear to be in distress secondary to pain and was ill appearing. The patient had significant amount of nausea and did have an episode of vomiting. The patient's vital signs revealed that he was afebrile bradycardic and very hypertensive with a blood pressure of 2 1/114. The patient was otherwise saturating well on room air. The patient underwent routine lab work which was negative aside from a mildly decreased potassium at 3.4 and a mildly elevated lipase of 59. The patient was treated in the emergency department with 2 L of IV fluid, IM Phenergan, IV Toradol, IV Haldol, IV Tylenol and IV Pepcid. The patient did not have any improvement in his abdominal pain as he continued to be an 8 out of 10. The patient also continued to be nauseous and could not tolerate anything orally. The patient was placed in observation for intractable abdominal pain and nausea and vomiting. History - Past Medical History Cardiovascular: reports: Hypertension Respiratory: reports: None Neuro: reports: None Endocrine/Autoimmune: reports: None GI: reports: Pancreatitis : reports: None HEENT: reports: None Psych: reports: None Musculoskeletal: reports: None Derm: reports: None MRSA Hx?: No - Past Surgical History Ortho: reports: Other - Family & Social History Family History: Mother: Alive and Well, Hypertension, Father: Alive and Well, Hypertension, Renal Disease/Failure, Other family: Mental Illness Family History Comment/Other: Patient's mother has obesity, hypertension, arthritis and history of aortic dissection with aneurysm at the age of 50. One brother had a bicuspid aortic valve and had an aneurysm in his 20s. Living arrangement: At home Living Situation: With spouse/s.o. Social History Notes: He is unmarried. He does have 6 children with several mothers. His youngest brother's child is 10 months old and his oldest is 19. 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 He was drinking up to a pack and a half of beer a day when he stopped drinking in 2016. He does use cannabis daily he states that he smokes about a gram a day. He did state that he stopped smoking about 3-4 days ago. The patient does smoke cigarettes about half a pack a day and has been doing so since his teen years. He denies any use of cocaine, heroin, LSD, methamphetamines. He denies any IV drug abuse. He is currently living with his mother and father and 1 of his brothers. While he is independent with activities of daily living with regard to dressing himself and feeding himself he is usually too tired to do much else. His mother states that he still cooks for the family in general. In any given time many of his siblings her nieces and nephews are around the house and he participates in cooking and cleaning in the kitchen. He has not worked for 2 years. - Substance History Use: Uses substance without health or social issues: Tobacco, Cannabis Abuse: Recurrent use of substance despite neg consequences: Cannabis - POLST Patient has POLST: No POLST Status: Full Code Meds/Allgy - Home Medications Home Medications: Ambulatory Orders Medication Instructions Recorded Confirmed Sucralfate [Carafate] 1 gm PO ACHS 10/25/17 11/17/17 Amlodipine Besylate 10 mg PO DAILY 10/29/17 11/17/17 Sertraline [Zoloft] 25 mg PO DAILY 10/29/17 11/17/17 Omeprazole [PriLOSEC] 20 mg PO QPM 11/16/17 11/17/17 Ondansetron HCl [Zofran] 8 mg PO Q8HR PRN #30 tablet 11/17/17 raNITIdine HCl [Ranitidine HCl] 300 mg PO DAILY 11/17/17 11/17/17 - Allergies Allergies/Adverse Reactions: Allergies Allergy/AdvReac Type Severity Reaction Status Date / Time morphine Allergy Hives Verified 11/18/17 07:47 Review of Systems - Other Findings Other Findings: A comprehensive review of systems was performed the pertinent positives and negatives are stated above in the HPI and the remainder of the review of systems is negative. Exam - Vital Signs Reviewed Vital Signs: Yes - Physical Exam General Appearance: positive: Alert, Moderate distress (looks miserable, grimacing, in pain) Eyes Bilateral: positive: Normal inspection, PERRL, EOMI, No lid inflammation, Conjunctivae nml, No scleral icterus ENT: positive: ENT inspection nml, Pharynx nml, Dry mucous membranes. negative : Purulent nasal drainage, Pharyngeal erythema, Oral lesions Neck: positive: Nml inspection, Thyroid nml, No JVD, Trachea midline. negative : Thyromegaly, Lymphadenopathy (R), Lymphadenopathy (L), Stiff neck, Carotid bruit, Tracheal deviation Respiratory: positive: Chest non-tender, No respiratory distress, Breath sounds nml. negative: Wheezes, Rales, Rhonchi Cardiovascular: positive: Regular rate & rhythm, No murmur, No gallop, Bradycardia Peripheral Pulses: positive: 2+ Abdomen: positive: No organomegaly, Nml bowel sounds, No distention, Tenderness (Left upper quadrant). negative: Guarding, Rebound, Hepatomegaly Back: positive: Nml inspection. negative: CVA tenderness (R), CVA tenderness (L ) Skin: positive: Color nml, No rash, Warm. negative: Dry, Cyanosis, Diaphoresis , Pallor, Skin rash Extremities: positive: Non-tender, Full ROM, Nml appearance, No pedal edema Neurologic/Psychiatric: positive: Oriented x3, CN's nml (2-12), Motor nml, Sensation nml, Mood/affect nml Conclusion/Plan - Problem List (1) Intractable abdominal pain Conclusion/Plan: Patient has history of intractable abdominal pain of unknown etiology. Patient has been worked up with multiple CTs, MRCP and abdominal ultrasounds none of which has revealed a etiology of his pain. The patient has had pancreatitis in the past and may have chronic pancreatitis although his CT and MRCP does not reveal evidence of chronic pancreatitis. The patient does smoke marijuana daily until about 3 days ago. It is possible that the patient may have cyclic vomiting syndrome from excessive marijuana use or unspecified cyclic vomiting syndrome. The patient is in the process of being referred to the [facility] for further evaluation by gastroenterology for her to find etiology of his abdominal pain and intractable symptoms of nausea and vomiting. Currently the patient is being placed in observation as he has a flareup of his above problem. Plan: Patient will be placed on Tylenol, IV Toradol and oxycodone to treat his pain. Patient will be given IV fluids We will monitor pain. (2) Intractable nausea and vomiting Conclusion/Plan: The patient is unspecified abdominal pain with intractable nausea and vomiting. As stated above he has had extensive workup without any obvious diagnosis being reached. It is possible the patient may have cyclic vomiting syndrome especially given the number of hospitalizations for intractable nausea and vomiting. Plan: Patient will be placed on IV Zofran, IM Phenergan and IV Compazine. He will also get IV Haldol all as needed for nausea and vomiting Typically the patient's symptoms do resolve within 24 hours and he will be monitored in observation until symptoms resolve. Patient will be given IV fluids as he does appear to be dehydrated Qualifiers: Vomiting type: unspecified Qualified Code(s): R11.2 - Nausea with vomiting , unspecified (3) Sinus bradycardia Conclusion/Plan: The patient has sinus bradycardia which he has had in the past. He has been evaluated with an echocardiogram in April 2017 which showed mild concentric left ventricular hypertrophy but otherwise normal EF and no other dysfunction. The patient's bradycardia could have been due to the fact he received Haldol in the emergency department however he has had bradycardia before in the past. The patient does not appear symptomatic from his sinus bradycardia. Monitor and avoid any medications that could cause bradycardia. (4) HTN (hypertension) Conclusion/Plan: The patient persistently presents with hypertension with blood pressure in the 200s. The patient's hypertension could be secondary to his abdominal pain. It is unlikely to be the cause of his abdominal pain although it could potentially be the cause of his nausea and vomiting. The patient denies any symptoms of palpitations or diaphoresis when he is blood pressure does become elevated. We will place the patient on his home dose of amlodipine as he states that he did not take it today. We will check metanephrines to rule out the possibility of pheochromocytoma We will monitor blood pressure Titrate blood pressure medication as needed Qualifiers: Hypertension type: essential hypertension Qualified Code(s): I10 - Essential (primary) hypertension (5) Cannabis abuse Conclusion/Plan: The patient does smoke marijuana daily until about 3 days ago. I did have a discussion with the patient about the possibility of him having cannabinoid cyclic vomiting syndrome. I advised the patient to quit marijuana for longer duration of time to see if the patient's symptoms do resolve. I explained to him that 3 days is not enough time for resolution of the problem. (6) Hypokalemia Conclusion/Plan: Patient does have mild hypokalemia on presentation with a potassium of 3.4. The patient will be given potassium replacement and IV fluids while he is hospitalized. (7) Anxiety and depression Conclusion/Plan: Patient does have history of anxiety and depression and takes Zoloft at home. We will continue the patient's Zoloft while he is hospitalized here. The patient does appear to have a depressed mood which may be related to his abdominal pain and suffering. There is also the possibility that this could be a psychosomatic pain and nausea. We would need to rule out all other possible causes before coming to this conclusion. (8) Tobacco abuse Conclusion/Plan: Patient has history of tobacco abuse. He continues to smoke about half a pack a day. The patient was counseled on the risks of smoking. He is also offered a nicotine patch. - Lab Results Lab results reviewed: Yes Fish Bones: 11/18/17 09:00 11/18/17 09:00 Other Lab Results: Laboratory Results WBC 9.7 x10^3/uL (4.8-10.8) 11/18/17 09:00 RBC 5.13 10^6/uL (4.70-6.10) 11/18/17 09:00 Hgb 13.5 g/dL (14.0-18.0) L 11/18/17 09:00 Hct 41.1 % (42.0-52.0) L 11/18/17 09:00 MCV 80.3 fL (80.0-94.0) 11/18/17 09:00 MCH 26.3 pg (27.0-31.0) L 11/18/17 09:00 MCHC 32.8 g/dL (32.0-36.0) 11/18/17 09:00 RDW 13.9 % (12.0-15.0) 11/18/17 09:00 Plt Count 352 10^3/uL (130-450) 11/18/17 09:00 MPV 6.8 fL (7.4-11.4) L 11/18/17 09:00 Neut # 8.1 10^3/uL (1.5-6.6) H 11/18/17 09:00 Lymph # 1.0 10^3/uL (1.5-3.5) L 11/18/17 09:00 [place] # 0.5 10^3/uL (0.0-1.0) 11/18/17 09:00 Eos # 0.0 10^3/uL (0.0-0.7) 11/18/17 09:00 Baso # 0.0 10^3/uL (0.0-0.1) 11/18/17 09:00 Absolute Nucleated RBC 0.01 x10^3/uL 11/18/17 09:00 Nucleated RBC % 0.1 /100WBC 11/18/17 09:00 Sodium 137 mmol/L (135-145) 11/18/17 09:00 Potassium 3.4 mmol/L (3.5-5.0) L 11/18/17 09:00 Chloride 105 mmol/L (101-111) 11/18/17 09:00 Carbon Dioxide 25 mmol/L (21-32) 11/18/17 09:00 Anion Gap 7.0 (6-13) 11/18/17 09:00 BUN 26 mg/dL (6-20) H 11/18/17 09:00 Creatinine 0.9 mg/dL (0.6-1.2) 11/18/17 09:00 Estimated GFR (MDRD) 116 (>89) 11/18/17 09:00 Glucose 106 mg/dL (70-100) H 11/18/17 09:00 Calcium 8.7 mg/dL (8.5-10.3) 11/18/17 09:00 Total Bilirubin 0.5 mg/dL (0.2-1.0) 11/18/17 09:00 AST 24 IU/L (10-42) 11/18/17 09:00 ALT 31 IU/L (10-60) 11/18/17 09:00 Alkaline Phosphatase 66 IU/L (42-121) 11/18/17 09:00 Total Protein 7.2 g/dL (6.7-8.2) 11/18/17 09:00 Albumin 4.2 g/dL (3.2-5.5) 11/18/17 09:00 Globulin 3.0 g/dL (2.1-4.2) 11/18/17 09:00 Albumin/Globulin Ratio 1.4 (1.0-2.2) 11/18/17 09:00 Lipase 59 U/L (22-51) H 11/18/17 09:00 Core Measures - Anticipated LOS I expect patient to be DC'd or transferred within 96 hours.: Yes - DVT/VTE - Prophylaxis VTE/DVT Prophylaxis med ordered at admit?: Yes
[2017-11-18] MEDS: amLODIPine 5 MG TABLET PO SCH (11:25)
[2017-11-18] MEDS: NS W/20 MEQ KCL 1,000 ML IV SCH ×2 (11:25→22:44)
[2017-11-18] MEDS ORDERED: oxyCODONE 5 MG TABLET PO PRN (13:04)
[2017-11-18] MEDS: SUCRALFATE 1 GM/10 ML UDC PO SCH ×3 (13:43→20:47)
[2017-11-18] MEDS: SERTRALINE 25 MG TABLET PO SCH (13:43)
[2017-11-18] MEDS ORDERED: cloNIDine 0.1 MG TABLET PO STA (14:46)
[2017-11-18] MEDS: KETOROLAC 30 MG/ML VIAL IVP PRN (16:40)
[2017-11-18] MEDS: SODIUM CHLORIDE FLUSH 0.9% 10 ML SYRINGE IVP SCH (16:40)
[2017-11-19] MEDS: KETOROLAC 30 MG/ML VIAL IVP PRN ×2 (00:40→06:29)
[2017-11-19] MEDS: NS W/20 MEQ KCL 1,000 ML IV SCH (01:42)
[2017-11-19] MEDS: SODIUM CHLORIDE FLUSH 0.9% 10 ML SYRINGE IVP SCH (01:43)
[2017-11-19] MEDS: SUCRALFATE 1 GM/10 ML UDC PO SCH (06:28)
[2017-11-19 06:32] LABS: BASOPHILS # (AUTO) 0.1 10^3/uL (0.0-0.1); BASOPHILS % (AUTO) 0.9 %; EOSINOPHILS # (AUTO) 0.1 10^3/uL (0.0-0.7); EOSINOPHILS % (AUTO) 1.9 %; HGB - HEMOGLOBIN 13.4 g/dL (14.0-18.0); LYMPHOCYTES # (AUTO) 2.4 10^3/uL (1.5-3.5); LYMPHOCYTES % (AUTO) 34.6 %; MEAN CORPUSCULAR HEMOGLOBIN 25.3 pg (27.0-31.0); MEAN CORPUSCULAR HGB CONC 31.4 g/dL (32.0-36.0); MEAN CORPUSCULAR VOLUME 80.4 fL (80.0-94.0); MEAN PLATELET VOLUME 6.9 fL (7.4-11.4); MONOCYTES # (AUTO) 0.8 10^3/uL (0.0-1.0); MONOCYTES % (AUTO) 11.3 %; NEUTROPHILS # (AUTO) 3.6 10^3/uL (1.5-6.6); NEUTROPHILS % (AUTO) 51.3 %; PLT - PLATELET COUNT 397 10^3/uL (130-450); RED BLOOD COUNT 5.31 10^6/uL (4.70-6.10); WHITE BLOOD COUNT 6.9 x10^3/uL (4.8-10.8)
[2017-11-19 06:42] LABS: ALBUMIN/GLOBULIN RATIO 1.3 (1.0-2.2); BILIRUBIN,TOTAL 0.9 mg/dL (0.2-1.0); CALCIUM 9.1 mg/dL (8.5-10.3); CREATININE 0.9 mg/dL (0.6-1.2); PHOSPHORUS 2.9 mg/dL (2.5-4.6)
[2017-11-19 07:31] LABS: THYROID STIMULATING HORMONE 1.06 uIU/mL (0.34-5.60)
[2017-11-19 07:33] LABS: FREE T4 (FREE THYROXINE) 1.11 ng/dL (0.58-1.64)
[2017-11-19] MEDS: SERTRALINE 25 MG TABLET PO SCH (08:57)
[2017-11-19] MEDS: amLODIPine 5 MG TABLET PO SCH (08:58)
[2017-11-19] MEDS ORDERED: ENOXAPARIN 40 MG/0.4 ML SYRINGE SUBQ SCH (09:00)
[2017-11-19] MEDS ORDERED: FAMOTIDINE 20 MG TABLET PO SCH (09:00)
[2017-11-19] MEDS ORDERED: POLYETHYLENE GLYCOL 3350 17 GM PACKET PO SCH (09:00)
--- NOTE | 2017-11-19 10:18 | Discharge Plan ---
Discharge Plan Disposition: 01 Home, Self Care Condition: Good Prescriptions: Ibuprofen 600 mg PO Q6HR PRN #30 tablet PRN Reason: Pain Diet: Regular Activity Restrictions: No Restrictions Shower Restrictions: No Driving Restrictions: No Additional Instructions or Follow Up instructions: You presented with abdominal pain, nausea and vomiting again. You improved with treatment as usual but this continues to come back and we do not know why. You need to be seen by a specialist in gastroenterology for further workup. We have prescribed you ibuprofen as you do seem to improve with anti-inflammatory medications. Please follow up with your PCP and get referral for GI. Drink plenty of fluid and eat simple foods like rice, bananas and toast. No Smoking: If you smoke, Please STOP! Call for help. Follow-up with: Kristin Hansen ARNP [Primary Care Provider] -
[2017-11-19 10:29] VITALS: BP 108/74
--- NOTE | 2017-11-19 12:29 | DISCHARGE SUMMARY ---
Discharge Summary Admit Date: 11/18/17 Discharge Date: 11/19/17 Discharging Provider: Jonny Barnes MD Primary Care Provider: Kristin Hansen [facility] Code Status: Attempt Resuscitation Condition at Discharge: Good Discharge Disposition: 01 Home, Self Care - DIAGNOSES Admission Diagnoses: 1. Intractable abdominal pain 2. Intractable nausea and vomiting 3. Sinus bradycardia 4. Hypertension 5. Cannabis abuse 6. Hypokalemia 7. Anxiety and depression 8. Tobacco abuse Discharge Diagnoses with Status of Each Condition: 1. Intractable abdominal pain: Resolved 2. Intractable nausea and vomiting: Resolved 3. Sinus bradycardia: Stable 4. Hypertension: Improved 5. Cannabis abuse: Stable 6. Hypokalemia: Resolved 7. Anxiety and depression: Stable 8. Tobacco abuse: Stable - HPI History of Present Illness: Patient is a 36-year-old -[place] gentleman who has had intermittent left upper quadrant abdominal pain since approximately 2007. 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 Between then and now, he has relatively quiescent disease state up until 2014. He then had another episode of left upper quadrant abdominal pain for which he was admitted for pancreatitis. From 2014 till 2016 his disease state was quiescent. But between 2016 and now, he has been admitted 05/18/2015, 04/03/2017, 04/27/2017, 05/27/2017, 10/29/2017 and again on 11/16/2017. In addition to our hospital he has been admitted twice to [facility] in the same period of time. All of these admissions have been for intractable nausea and vomiting with left upper quadrant abdominal pain. He has had lipase as high as 900 or so at [facility]. For us here his highest lipase has been 327. He has not drank since 2016. In addition to the admissions this gentleman has had 21 ER visits since July this year alone. Today would be his nd visit. Again they are all for the same problem of intractable nausea and vomiting with left upper quadrant abdominal pain. Workup has had 6 CT scans of the abdomen, and MRCP. An ultrasound of the abdomen done here. An ultrasound of the abdomen done at [facility]. He has had a colonoscopy in 04/2017 and he has had an EGD in 07/2017. None of these studies have delineated why this uncomfortable gentleman has an elevated amylase, nor has it delineated any anatomical abnormalities. He has had an intact biliary and pancreatic ductal system that appears grossly normal on MRCP. He has had no stones or thickened gallbladder on ultrasound or his abdominal CTs. He is being followed by nurse practitioner Kristin Hansen for his primary care provider. She last saw him on 11/09/2017 and he appears to be compliant with most of his visits. She is in the process of getting ready to refer him to the [facility]. He has already been seen by Dr. Miller at [facility] gastroenterology. Dr. Miller is the one that recommended the MRCP. Other than the etiology of this pancreatitis being alcohol induced, Dr. Miller's note does not include an extensive differential. In 2016 this patient weighed close to 82 kg. With the his episodes of nausea and vomiting unable to eat, in spite of severe hunger, his weight has drifted down to 63.5 kg. The patient was discharged from our hospital yesterday after being placed in observation for intractable nausea, vomiting and abdominal pain. At the time of discharge the patient appeared to be doing well he had eaten his lunch and had no symptoms of nausea or vomiting. The patient also had no abdominal pain when he was discharged home. 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 He states that it was a dull and burning pain. He states that it was similar to the pain he has had in the past. He states that he did try to take an antacid and an antiemetic for the pain and the nausea that he began to feel. He states that this did not improve his symptoms and that symptoms in fact became worse. 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 The patient decided that he was not getting better at home and came into the emergency department. The patient does also admit to a headache and feeling of fatigue. He denies any diaphoresis or palpitations. The patient denies any fevers or chills. He denies any sick contacts at home. He denies eating anything unusual last night. The patient does admit to smoking marijuana daily but states he has not smoked for the past 3 days and did not smoke any marijuana last night. The patient denies drinking alcohol. The patient denies any blurred vision, runny nose, sore throat, nasal congestion , difficulty swallowing, chest pain, shortness of air, orthopnea, PND, increased lower extremity swelling, diarrhea, constipation, urinary urgency, urinary frequency, dysuria, joint pain, joint swelling, muscle aches, back pain , neck stiffness, rashes, hair loss or any focal neurologic deficits. On presentation to the emergency department the patient did appear to be in distress secondary to pain and was ill appearing. The patient had significant amount of nausea and did have an episode of vomiting. The patient's vital signs revealed that he was afebrile bradycardic and very hypertensive with a blood pressure of 2 1/114. The patient was otherwise saturating well on room air. The patient underwent routine lab work which was negative aside from a mildly decreased potassium at 3.4 and a mildly elevated lipase of 59. The patient was treated in the emergency department with 2 L of IV fluid, IM Phenergan, IV Toradol, IV Haldol, IV Tylenol and IV Pepcid. The patient did not have any improvement in his abdominal pain as he continued to be an 8 out of 10. The patient also continued to be nauseous and could not tolerate anything orally. The patient was placed in observation for intractable abdominal pain and nausea and vomiting. - HOSPITAL COURSE Hospital Course: The patient was placed in observation overnight and received Toradol for his pain along with IV fluids, sucralfate, Pepcid and antiemetics. The patient was initially quite hypertensive and also received his home dose of amlodipine as well as a dose of Catapres. The patient's hypertension resolved and he had complete resolution of his abdominal pain as well as his intractable nausea and vomiting. The following morning the patient was able to eat his full liquid breakfast without any symptoms. The patient was ambulating in his room and felt well. At the time of discharge the patient's symptoms had completely resolved. The patient did continue to have some bradycardia but was asymptomatic from it. The patient's blood pressure was much improved in fact it was borderline low. The patient was discharged home and told to drink plenty of fluid and eat very basic foods such as rice, bananas and toast. The patient was prescribed 600 mg of ibuprofen for any future pain as it appears that NSAIDs seem to help his pain the most. The patient will follow up with his primary care physician and will likely need a referral for gastroenterology given that he continues to have these symptoms with recurrent hospitalizations but no proven diagnosis. One test that the patient does not appear to have had is a CT angiogram of the abdomen as he could possibly be having abdominal migraines due to atherosclerosis or stenosis of 1 of his mesenteric vessels. This would likely explain his pain but still may not be an explanation for his nausea. It is something to think about going into the future. - ALLERGIES Allergies/Adverse Reactions: Allergies Allergy/AdvReac Type Severity Reaction Status Date / Time morphine Allergy Hives Verified 11/18/17 07:47 - MEDICATIONS Home Medications: Ambulatory Orders Medication Instructions Recorded Confirmed Sucralfate [Carafate] 1 gm PO ACHS 10/25/17 11/18/17 Amlodipine Besylate 10 mg PO DAILY 10/29/17 11/18/17 Sertraline [Zoloft] 25 mg PO DAILY 10/29/17 11/18/17 Omeprazole [PriLOSEC] 20 mg PO QPM 11/16/17 11/18/17 Ondansetron HCl [Zofran] 8 mg PO Q8HR PRN #30 tablet 11/17/17 11/18/17 raNITIdine HCl [Ranitidine HCl] 300 mg PO DAILY 11/17/17 11/18/17 Ibuprofen 600 mg PO Q6HR PRN #30 tablet 11/19/17 - PHYSICAL EXAM AT DISCHARGE General Appearance: positive: No acute distress, Alert Eyes Bilateral: positive: Normal inspection, PERRL, EOMI, No lid inflammation, Conjunctivae nml, No scleral icterus ENT: positive: ENT inspection nml, Pharynx nml, No signs of dehydration. negative: Purulent nasal drainage, Pharyngeal erythema, Oral lesions Neck: positive: Nml inspection, Thyroid nml, No JVD, Trachea midline. negative : Lymphadenopathy (R), Lymphadenopathy (L), Carotid bruit, Tracheal deviation Respiratory: positive: Chest non-tender, No respiratory distress, Breath sounds nml. negative: Wheezes Cardiovascular: positive: Regular rate & rhythm, No murmur, No gallop Peripheral Pulses: positive: 2+ Abdomen: positive: Non-tender, No organomegaly, Nml bowel sounds, No distention. negative: Guarding, Rebound, Hepatomegaly Back: positive: Nml inspection. negative: CVA tenderness (R), CVA tenderness (L ) Skin: positive: Color nml, No rash, Warm. negative: Diaphoresis, Pallor, Skin rash Extremities: positive: Non-tender, Full ROM, Nml appearance, No pedal edema Neurologic/Psychiatric: positive: Oriented x3, CN's nml (2-12), Motor nml, Sensation nml, Mood/affect nml - LABS Result Diagrams: 11/19/17 06:20 11/19/17 06:20 Other Lab Results: Laboratory Results WBC 6.9 x10^3/uL (4.8-10.8) 11/19/17 06:20 RBC 5.31 10^6/uL (4.70-6.10) 11/19/17 06:20 Hgb 13.4 g/dL (14.0-18.0) L 11/19/17 06:20 Hct 42.7 % (42.0-52.0) 11/19/17 06:20 MCV 80.4 fL (80.0-94.0) 11/19/17 06:20 MCH 25.3 pg (27.0-31.0) L 11/19/17 06:20 MCHC 31.4 g/dL (32.0-36.0) L 11/19/17 06:20 RDW 14.0 % (12.0-15.0) 11/19/17 06:20 Plt Count 397 10^3/uL (130-450) 11/19/17 06:20 MPV 6.9 fL (7.4-11.4) L 11/19/17 06:20 Neut # 3.6 10^3/uL (1.5-6.6) 11/19/17 06:20 Lymph # 2.4 10^3/uL (1.5-3.5) 11/19/17 06:20 [place] # 0.8 10^3/uL (0.0-1.0) 11/19/17 06:20 Eos # 0.1 10^3/uL (0.0-0.7) 11/19/17 06:20 Baso # 0.1 10^3/uL (0.0-0.1) 11/19/17 06:20 Absolute Nucleated RBC 0.01 x10^3/uL 11/19/17 06:20 Nucleated RBC % 0.1 /100WBC 11/19/17 06:20 Sodium 135 mmol/L (135-145) 11/19/17 06:20 Potassium 3.7 mmol/L (3.5-5.0) 11/19/17 06:20 Chloride 104 mmol/L (101-111) 11/19/17 06:20 Carbon Dioxide 24 mmol/L (21-32) 11/19/17 06:20 Anion Gap 7.0 (6-13) 11/19/17 06:20 BUN 20 mg/dL (6-20) 11/19/17 06:20 Creatinine 0.9 mg/dL (0.6-1.2) 11/19/17 06:20 Estimated GFR (MDRD) 116 (>89) 11/19/17 06:20 Glucose 98 mg/dL (70-100) 11/19/17 06:20 Lactic Acid 1.1 mmol/L (0.5-2.2) 11/19/17 06:20 Calcium 9.1 mg/dL (8.5-10.3) 11/19/17 06:20 Phosphorus 2.9 mg/dL (2.5-4.6) 11/19/17 06:20 Magnesium 2.0 mg/dL (1.7-2.8) 11/19/17 06:20 Total Bilirubin 0.9 mg/dL (0.2-1.0) 11/19/17 06:20 AST 21 IU/L (10-42) 11/19/17 06:20 ALT 30 IU/L (10-60) 11/19/17 06:20 Alkaline Phosphatase 65 IU/L (42-121) 11/19/17 06:20 Total Protein 7.0 g/dL (6.7-8.2) 11/19/17 06:20 Albumin 4.0 g/dL (3.2-5.5) 11/19/17 06:20 Globulin 3.0 g/dL (2.1-4.2) 11/19/17 06:20 Albumin/Globulin Ratio 1.3 (1.0-2.2) 11/19/17 06:20 Lipase 59 U/L (22-51) H 11/18/17 09:00 TSH 1.06 uIU/mL (0.34-5.60) 11/19/17 06:20 Free T4 1.11 ng/dL (0.58-1.64) 11/19/17 06:20 Free T3 pg/mL 3.49 pg/mL (2.5-3.9) 11/19/17 06:20 Total T3 1.08 ng/mL (0.87-1.78) 11/19/17 06:20 - FOLLOW UP Follow Up: Patient will follow up with his primary care physician and we will need referral for gastroenterology for further evaluation of his abdominal pain and intractable nausea vomiting. The patient was prescribed ibuprofen for his abdominal pain. He already has Zofran and Phenergan at home for his nausea. The patient was in stable condition and eating and tolerating food and liquids at the time of discharge. The patient was told to drink plenty of fluid, avoid using marijuana and eat simple diet. - TIME SPENT Time Spent in Discharge (Minutes): 35
[2017-11-25 00:23] LABS: METHYLMALONIC ACID 87 nmol/L (87-318)
== END 2017-11-19 10:10 | disposition home or self-care (01) ==
LOC: EDUNIT# → ED 07:35 → OBS 10:30
PROVIDERS: ADMIT Internal Medicine; ATTEND Internal Medicine
DX: R10.12 Left upper quadrant pain (principal); R11.2 Nausea with vomiting, unspecified; R00.1 Bradycardia, unspecified; I11.9 Hypertensive heart disease without heart failure; F12.10 Cannabis abuse, uncomplicated; E87.6 Hypokalemia; F41.9 Anxiety disorder, unspecified; F32.9 Major depressive disorder, single episode, unspecified; E86.0 Dehydration; R10.812 Left upper quadrant abdominal tenderness; F17.210 Nicotine dependence, cigarettes, uncomplicated; Z87.898 Personal history of other specified conditions; Z87.19 Personal history of other diseases of the digestive system; Z79.899 Other long term (current) drug therapy
CPT/HCPCS: 36415; 80053; 83605; 83690; 83735; 83835; 83921; 84100; 84439; 84443; 84480; 84481; 85025; 96361; 96365; 96367; 96372; 96375; 96376; 99283; 99284; A9270; G0378; J0131; J1650

== ENCOUNTER 2017-11-21 14:30 | Outpatient (CLI) | payer MEDICAID | END 2017-11-21 15:00 | disposition home or self-care (01) | LOC: RT.N 14:30 | PROVIDERS: ATTEND Nurse Practitioner Gerontology | DX: R01.1 Cardiac murmur, unspecified (principal); I10 Essential (primary) hypertension | CPT/HCPCS: 93005 ==

== ENCOUNTER 2017-12-09 21:57 | Outpatient (CLI) | payer MEDICAID | END 2017-12-09 21:58 | disposition critical access hospital (66) | LOC: EMS 21:57 | PROVIDERS: ATTEND Surgery | DX: R10.9 Unspecified abdominal pain (principal); R11.10 Vomiting, unspecified | CPT/HCPCS: A0425; A0429 ==

== ENCOUNTER 2017-12-09 22:15 | Emergency (ER) | payer MEDICAID ==
[2017-12-09] MEDS ORDERED: SODIUM CHLORIDE 0.9% 1,000 ML IV ONE (22:30)
[2017-12-09] MEDS ORDERED: KETOROLAC 15 MG/ML VIAL IVP STA (22:31)
[2017-12-09] MEDS ORDERED: PANTOPRAZOLE 40 MG VIAL IVP STA (22:31)
[2017-12-09] MEDS ORDERED: PROMETHAZINE INJ 25 MG in SODIUM CHLORIDE 0.9% 50 ML IV STA (22:31)
[2017-12-10] MEDS ORDERED: HALOPERIDOL 5 MG/ML VIAL IVP ONE (00:18)
--- NOTE | 2017-12-10 00:20 | ED Physician Documentation ---
PD HPI ABD PAIN - Stated complaint Stated Complaint: ABD PAIN - Chief complaint Chief Complaint: Abd Pain - History obtained from History obtained from: Patient - History of Present Illness Timing - onset: How many days ago (6) Timing - details: Gradual onset, Still present Quality: Cramping, Aching Location: Epigastric, LUQ Associated symptoms: Nausea, Vomiting. No: Fever, Diarrhea, Constipation Similar symptoms before: Work up / diagnostics, Treatment Recently seen: Emergency Dept, Admitted - Additional information Additional information: Patient is a 37 year old male with a history of chronic pancreatitis who is presenting to the emergency department for nausea, vomiting and abdominal pain. patient states that his symptoms have become progressively worse over the last 6 days. Patient denies any recent alcohol consumption. Review of Systems Constitutional: denies: Fever, Chills GI: reports: Abdominal Pain, Nausea, Vomiting. denies: Constipation, Diarrhea PD PAST MEDICAL HISTORY - Past Medical History Past Medical History: Yes Cardiovascular: Hypertension Respiratory: None Neuro: None Endocrine/Autoimmune: None GI: Pancreatitis : None HEENT: None Psych: None Musculoskeletal: None Derm: None - Past Surgical History Past Surgical History: Yes Ortho: Other - Present Medications Home Medications: Ambulatory Orders Medication Instructions Recorded Confirmed Sucralfate [Carafate] 1 gm PO ACHS 10/25/17 11/18/17 Amlodipine Besylate 10 mg PO DAILY 10/29/17 11/18/17 Sertraline [Zoloft] 25 mg PO DAILY 10/29/17 11/18/17 Omeprazole [PriLOSEC] 20 mg PO QPM 11/16/17 11/18/17 Ondansetron HCl [Zofran] 8 mg PO Q8HR PRN #30 tablet 11/17/17 11/18/17 raNITIdine HCl [Ranitidine HCl] 300 mg PO DAILY 11/17/17 11/18/17 Ibuprofen 600 mg PO Q6HR PRN #30 tablet 11/19/17 Ondansetron Odt [Zofran] 4 mg TL Q6H PRN #20 tablet 12/10/17 Promethazine [Phenergan] 25 mg PO Q6H PRN #10 tab 12/10/17 - Allergies Allergies/Adverse Reactions: Allergies Allergy/AdvReac Type Severity Reaction Status Date / Time morphine Allergy Hives Verified 11/18/17 07:47 - Social History Does the pt smoke?: Yes Smoking Status: Current every day smoker Does the pt drink ETOH?: No Does the pt have substance abuse?: Yes - Immunizations Immunizations are current?: No - POLST Patient has POLST: No POLST Status: Full Code PD ED PE NORMAL - Vitals Vital signs reviewed: Yes - General General: Alert and oriented X 3 - HEENT HEENT: Atraumatic - Derm Derm: Normal color, Warm and dry - Neuro Neuro: Alert and oriented X 3 PD ED PE EXPANDED - General General: Alert, Anxious, In Pain - Cardiac Cardiac: Tachy - Abdomen Abdomen: Tender to palpation, Epigastric, LUQ. No: Rebound, Guarding Results - Vitals Vitals: Vital Signs - 24 hr 12/09/17 12/09/17 12/10/17 22:15 23:59 00:14 Temperature 35.9 C L Heart Rate 49 L Respiratory 20 20 20 Rate Blood Pressure 242/127 H O2 Saturation 100 12/10/17 12/10/17 12/10/17 00:27 01:05 02:29 Temperature Heart Rate 57 L 57 L Respiratory 20 14 14 Rate Blood Pressure 179/109 H 181/88 H O2 Saturation 99 99 12/10/17 12/10/17 03:38 04:52 Temperature Heart Rate Respiratory 14 14 Rate Blood Pressure O2 Saturation Oxygen O2 Source Room air - Labs Labs: Laboratory Tests 12/10/17 12/10/17 12/10/17 00:15 00:15 01:00 WBC 9.9 RBC 5.13 Hgb 13.6 L Hct 41.6 L MCV 81.2 MCH 26.5 L MCHC 32.6 RDW 15.0 Plt Count 284 MPV 7.1 L Neut # 7.4 H Lymph # 1.5 [place] # 0.6 Eos # 0.4 Baso # 0.1 Absolute Nucleated RBC 0.00 Nucleated RBC % 0.0 Sodium 139 Potassium 3.5 Chloride 103 Carbon Dioxide 28 Anion Gap 8.0 BUN 13 Creatinine 1.1 Estimated GFR (MDRD) 91 Glucose 130 H Calcium 8.9 Phosphorus 2.6 Magnesium 1.8 Total Bilirubin 0.5 AST 25 ALT 59 Alkaline Phosphatase 69 Total Protein 7.7 Albumin 4.5 Globulin 3.2 Albumin/Globulin Ratio 1.4 Lipase 315 H Urine Color YELLOW Urine Clarity CLEAR Urine pH 6.5 Ur Specific [place] 1.025 Urine Protein NEGATIVE Urine Glucose (UA) NEGATIVE Urine Ketones NEGATIVE Urine Occult Blood NEGATIVE Urine Nitrite NEGATIVE Urine Bilirubin NEGATIVE Urine Urobilinogen 0.2 (NORMAL) Ur Leukocyte Esterase NEGATIVE Ur Microscopic Review NOT INDICATED Urine Culture Comments NOT INDICATED PD MEDICAL DECISION MAKING - ED course Complexity details: reviewed old records, reviewed results, re-evaluated patient , considered differential, d/w patient, d/w search consultant ED course: Patient was seen and examined at bedside. IV access was gained and labs were drawn. Patient was treated with ns bolus toradol and phenegran. Patient's care plan said to limit IV narcotics. patient stated he was still in pain and was treated with haldol. Patient's pain improved. Patient did have a mild pancreatitis but there were no available beds in the hospital. Case was then discussed with the covering hospitalist at [facility]. He stated that the patient did not likely require transfer or admission. Patient was observed in the emergency department over night for about 8 hours. After patient's original presentation patient had no other episodes of vomiting. Patient required no further work up and was stable for discharge with outpatient follow up. Departure - Departure Disposition: 01 Home, Self Care Clinical Impression: Acute on chronic pancreatitis Condition: Good Instructions: Pancreatitis Chronic Dc Follow-Up: primary,care provider [Other] - Within 3 Days Prescriptions: Ondansetron Odt [Zofran] 4 mg TL Q6H PRN #20 tablet PRN Reason: Nausea / Vomiting Promethazine [Phenergan] 25 mg PO Q6H PRN #10 tab PRN Reason: Nausea / Vomiting Comments: Your symptoms today are being caused by pancreatitis. It is important that you stay well hydrated. You have been prescribed two anti nausea medications. it is important that you follow up with your doctor in the next three days. You may return to the emergency department at any time for new, worsening or uncontrollable symptoms.
[2017-12-10 00:25] LABS: BASOPHILS # (AUTO) 0.1 10^3/uL (0.0-0.1); BASOPHILS % (AUTO) 0.6 %; EOSINOPHILS # (AUTO) 0.4 10^3/uL (0.0-0.7); EOSINOPHILS % (AUTO) 3.5 %; HGB - HEMOGLOBIN 13.6 g/dL (14.0-18.0); LYMPHOCYTES # (AUTO) 1.5 10^3/uL (1.5-3.5); LYMPHOCYTES % (AUTO) 15.3 %; MEAN CORPUSCULAR HEMOGLOBIN 26.5 pg (27.0-31.0); MEAN CORPUSCULAR HGB CONC 32.6 g/dL (32.0-36.0); MEAN CORPUSCULAR VOLUME 81.2 fL (80.0-94.0); MEAN PLATELET VOLUME 7.1 fL (7.4-11.4); MONOCYTES # (AUTO) 0.6 10^3/uL (0.0-1.0); MONOCYTES % (AUTO) 6.4 %; NEUTROPHILS # (AUTO) 7.4 10^3/uL (1.5-6.6); NEUTROPHILS % (AUTO) 74.2 %; PLT - PLATELET COUNT 284 10^3/uL (130-450); RED BLOOD COUNT 5.13 10^6/uL (4.70-6.10); WHITE BLOOD COUNT 9.9 x10^3/uL (4.8-10.8)
[2017-12-10 00:37] LABS: ALBUMIN 4.5 g/dL (3.2-5.5); ALBUMIN/GLOBULIN RATIO 1.4 (1.0-2.2); BILIRUBIN,TOTAL 0.5 mg/dL (0.2-1.0); CALCIUM 8.9 mg/dL (8.5-10.3); CREATININE 1.1 mg/dL (0.6-1.2); MAGNESIUM 1.8 mg/dL (1.7-2.8); PHOSPHORUS 2.6 mg/dL (2.5-4.6); TOTAL PROTEIN 7.7 g/dL (6.7-8.2)
[2017-12-10 01:29] LABS: BILIRUBIN,URINE NEGATIVE (NEGATIVE); GLUCOSE, URINE (UA) NEGATIVE (NEGATIVE); KETONES,URINE (UA) NEGATIVE (NEGATIVE); LEUKOCYTE ESTERASE, URINE NEGATIVE (NEGATIVE); NITRITE,URINE NEGATIVE (NEGATIVE); OCCULT BLOOD,URINE NEGATIVE (NEGATIVE); PH,URINE 6.5 PH (5.0-7.5); PROTEIN,URINE NEGATIVE (NEGATIVE); UROBILINOGEN,URINE 0.2 (NORMAL) E.U./dL (NORMAL)
[2017-12-10 01:39] LABS: CLARITY,URINE CLEAR (CLEAR)
[2017-12-10 06:13] VITALS: BP 114/67
== END 2017-12-10 06:14 | disposition home or self-care (01) ==
LOC: EDUNIT# → ED 22:15
DX: K85.90 Acute pancreatitis without necrosis or infection, unspecified (principal); K86.1 Other chronic pancreatitis; I10 Essential (primary) hypertension; F17.200 Nicotine dependence, unspecified, uncomplicated
CPT/HCPCS: 36415; 80053; 81003; 83690; 83735; 84100; 85025; 96365; 96375; 99284; J7040; 81001; 87086

== ENCOUNTER 2018-01-05 17:21 | Emergency (ER) | payer MEDICAID ==
--- NOTE | 2018-01-05 17:33 | ED Physician Documentation ---
PD HPI ABD PAIN - Stated complaint Stated Complaint: AB PX - Chief complaint Chief Complaint: Abd Pain - History obtained from History obtained from: Patient - History of Present Illness Timing - onset: Today Timing - details: Abrupt onset, Still present Quality: Cramping, Aching, Pain. No: Fullness/distended Location: Epigastric Worsened by: Eating Associated symptoms: Nausea, Vomiting. No: Fever, Hematemesis, Diarrhea Similar symptoms before: Diagnosis (various, with some chronic pancreatitis and does have lipase elevations periodically, but also episodes of this without that. 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 denies: Diarrhea, Hematemesis, Bloody / black stool : denies: Dysuria, Frequency Musculoskeletal: denies: Neck pain, Back pain Neurologic: reports: Generalized weakness. denies: Focal weakness, Numbness PD PAST MEDICAL HISTORY - Past Medical History Cardiovascular: Hypertension Respiratory: None Neuro: None Endocrine/Autoimmune: None GI: Pancreatitis : None HEENT: None Psych: None Musculoskeletal: None Derm: None - Past Surgical History Past Surgical History: Yes Ortho: Other - Present Medications Home Medications: Ambulatory Orders Medication Instructions Recorded Confirmed Sucralfate [Carafate] 1 gm PO ACHS 10/25/17 11/18/17 Amlodipine Besylate 10 mg PO DAILY 10/29/17 11/18/17 Omeprazole [PriLOSEC] 20 mg PO QPM 11/16/17 11/18/17 Ondansetron HCl [Zofran] 8 mg PO Q8HR PRN #30 tablet 11/17/17 11/18/17 raNITIdine HCl [Ranitidine HCl] 300 mg PO DAILY 11/17/17 11/18/17 Ibuprofen 600 mg PO Q6HR PRN #30 tablet 11/19/17 Ondansetron Odt [Zofran] 4 mg TL Q6H PRN #20 tablet 05/26/18 Promethazine [Phenergan] 25 mg PO Q6H PRN #10 tab 12/10/17 - Allergies Allergies/Adverse Reactions: Allergies Allergy/AdvReac Type Severity Reaction Status Date / Time morphine Allergy Hives Verified 01/05/18 17:30 - Social History Does the pt smoke?: Yes Smoking Status: Current every day smoker Does the pt drink ETOH?: No Does the pt have substance abuse?: Yes - Immunizations Immunizations are current?: No - POLST Patient has POLST: No POLST Status: Full Code PD ED PE NORMAL - Vitals Vital signs reviewed: Yes - General General: Alert and oriented X 3, Well developed/nourished, Other (very distressed appearing and is kneeling on floor next to bed, leaning head over bed , with emesis bag in hand.) - HEENT HEENT: Ears normal, Pharynx benign - Neck Neck: Supple, no meningeal sign, No adenopathy - Cardiac Cardiac: RRR, No murmur - Respiratory Respiratory: Clear bilaterally - Abdomen Abdomen: Soft, Non distended, No organomegaly, Other (very tender with guarding epigastric area). No: Normal bowel sounds (decreased) - Male Male : Deferred - Rectal Rectal: Deferred - Back Back: No CVA TTP - Derm Derm: Normal color, Warm and dry - Neuro Neuro: Alert and oriented X 3, No motor deficit, Normal speech Results - Vitals Vitals: Vital Signs - 24 hr 01/05/18 01/05/18 01/05/18 17:28 19:43 19:47 Temperature 36.9 C Heart Rate 76 82 Respiratory 22 16 Rate Blood Pressure 202/116 H 185/110 H O2 Saturation 99 01/05/18 21:52 Temperature Heart Rate 60 Respiratory 18 Rate Blood Pressure 211/112 H O2 Saturation 98 Oxygen O2 Source Room air - Labs Labs: Laboratory Tests 01/05/18 01/05/18 18:25 18:40 Sodium 138 Potassium 3.6 Chloride 104 Carbon Dioxide 24 Anion Gap 10.0 BUN 15 Creatinine 0.9 Estimated GFR (MDRD) 115 Glucose 132 H Calcium 9.3 Total Bilirubin 0.2 AST 47 H ALT 91 H Alkaline Phosphatase 82 Total Protein 8.3 H Albumin 4.9 Globulin 3.4 Albumin/Globulin Ratio 1.4 Lipase 69 H Urine Color YELLOW Urine Clarity CLEAR Urine pH 7.0 Ur Specific [place] 1.020 Urine Protein NEGATIVE Urine Glucose (UA) NEGATIVE Urine Ketones NEGATIVE Urine Occult Blood NEGATIVE Urine Nitrite NEGATIVE Urine Bilirubin NEGATIVE Urine Urobilinogen 0.2 (NORMAL) Ur Leukocyte Esterase NEGATIVE Ur Microscopic Review NOT INDICATED Urine Culture Comments NOT INDICATED Urine Opiates Screen NEGATIVE Ur Oxycodone Screen NEGATIVE Urine Methadone Screen NEGATIVE Ur Propoxyphene Screen NEGATIVE Ur Barbiturates Screen NEGATIVE Ur Tricyclics Screen NEGATIVE Ur Phencyclidine Scrn NEGATIVE Ur Amphetamine Screen NEGATIVE U Methamphetamines Scrn NEGATIVE U Benzodiazepines Scrn NEGATIVE Urine Cocaine Screen NEGATIVE U Cannabinoids Screen POSITIVE H PD MEDICAL DECISION MAKING - ED course Complexity details: reviewed old records (given IV fluids and meds, initially nonnarcotic without much improvement in pain but nausea gone. talked with him and he felt he would be able to go home if pain less. Given some IV meds and he feels improved for discharge. lipase is okay. Does not seem pancreatitis and is quick episode with cramps and vomiting, so more likely cyclic vomiting. Positive for cannabinoids on UTox. ), reviewed results, considered differential , d/w patient - Sepsis Event Vital Signs: Vital Signs - 24 hr 01/05/18 01/05/18 01/05/18 17:28 19:43 19:47 Temperature 36.9 C Heart Rate 76 82 Respiratory 22 16 Rate Blood Pressure 202/116 H 185/110 H O2 Saturation 99 01/05/18 21:52 Temperature Heart Rate 60 Respiratory 18 Rate Blood Pressure 211/112 H O2 Saturation 98 Oxygen O2 Source Room air Departure - Departure Disposition: 01 Home, Self Care Clinical Impression: Gastritis Qualifiers: Gastritis type: unspecified gastritis Chronicity: chronic Gastritis bleeding: without bleeding Qualified Code(s): K29.50 - Unspecified chronic gastritis without bleeding Abdominal pain Qualifiers: Abdominal location: epigastric Qualified Code(s): R10.13 - Epigastric pain Vomiting Qualifiers: Vomiting type: unspecified Vomiting Intractability: non-intractable Nausea presence: with nausea Qualified Code(s): R11.2 - Nausea with vomiting, unspecified Condition: Stable Record reviewed to determine appropriate education?: Yes Follow-Up: Kristin Hansen ARNP [Primary Care Provider] - Comments: Small frequent fluids and bland food. Continue usual medications. Use nausea medicine if needed. Return if worse again. Discharge Date/Time: 01/05/18 21:52
[2018-01-05] MEDS ORDERED: diphenhydrAMINE INJ 50 MG/ML VIAL IVP STA (17:44)
[2018-01-05] MEDS ORDERED: SODIUM CHLORIDE 0.9% 1,000 ML IV ONE (17:44)
[2018-01-05] MEDS ORDERED: HALOPERIDOL 5 MG/ML VIAL IVP ONE ×2 (17:44→20:23)
[2018-01-05] MEDS ORDERED: FAMOTIDINE 20 MG/50 ML 50 ML IV ONE (17:44)
[2018-01-05 18:42] LABS: ALBUMIN 4.9 g/dL (3.2-5.5); ALBUMIN/GLOBULIN RATIO 1.4 (1.0-2.2); BILIRUBIN,TOTAL 0.2 mg/dL (0.2-1.0); CALCIUM 9.3 mg/dL (8.5-10.3); CREATININE 0.9 mg/dL (0.6-1.2); TOTAL PROTEIN 8.3 g/dL (6.7-8.2)
[2018-01-05 18:52] LABS: MUDS CUTOFF CONCENTRATIONS CUTOFF CONC BELOW:
[2018-01-05 18:56] LABS: BILIRUBIN,URINE NEGATIVE (NEGATIVE); GLUCOSE, URINE (UA) NEGATIVE (NEGATIVE); KETONES,URINE (UA) NEGATIVE (NEGATIVE); LEUKOCYTE ESTERASE, URINE NEGATIVE (NEGATIVE); NITRITE,URINE NEGATIVE (NEGATIVE); OCCULT BLOOD,URINE NEGATIVE (NEGATIVE); PROTEIN,URINE NEGATIVE (NEGATIVE); UROBILINOGEN,URINE 0.2 (NORMAL) E.U./dL (NORMAL)
[2018-01-05 19:05] LABS: CLARITY,URINE CLEAR (CLEAR)
[2018-01-05 19:08] LABS: AMPHETAMINE SCREEN,URINE NEGATIVE (NEGATIVE); BENZODIAZEPINES SCREEN, URINE NEGATIVE (NEGATIVE); COCAINE SCREEN URINE NEGATIVE (NEGATIVE); METHADONE SCREEN, URINE NEGATIVE (NEGATIVE); METHAMPHETAMINES SCREEN, URINE NEGATIVE (NEGATIVE); OPIATE SCREEN, URINE NEGATIVE (NEGATIVE); OXYCODONE SCREEN, URINE NEGATIVE (NEGATIVE); PROPOXYPHENE SCREEN, URINE NEGATIVE (NEGATIVE); TRICYCLIC ANTIDEPRESSANT,URINE NEGATIVE (NEGATIVE)
[2018-01-05] MEDS ORDERED: fentaNYL 100 MCG/2 ML VIAL IVP STA ×2 (19:11→20:23)
[2018-01-05] MEDS ORDERED: KETOROLAC 60 MG/2 ML VIAL IVP STA (19:11)
[2018-01-05 21:54] VITALS: BP 211/112
== END 2018-01-05 21:52 | disposition home or self-care (01) ==
LOC: ED 17:21
DX: K29.50 Unspecified chronic gastritis without bleeding (principal); I10 Essential (primary) hypertension; K86.1 Other chronic pancreatitis; F17.200 Nicotine dependence, unspecified, uncomplicated
CPT/HCPCS: 36415; 80053; 80306; 81003; 83690; 96365; 96366; 96375; 96376; 99283; J1200; 81001; 87086

== ENCOUNTER 2018-01-07 13:24 | Outpatient (CLI) | payer MEDICAID | END 2018-01-07 13:25 | disposition critical access hospital (66) | LOC: EMS 13:24 | PROVIDERS: ATTEND Surgery | DX: R10.9 Unspecified abdominal pain (principal); R11.2 Nausea with vomiting, unspecified | CPT/HCPCS: A0425; A0427 ==

== ENCOUNTER 2018-01-07 13:48 | Emergency (ER) | payer MEDICAID ==
[2018-01-07] MEDS ORDERED: PROMETHAZINE INJ 25 MG in SODIUM CHLORIDE 0.9% 50 ML IV STA (13:55)
[2018-01-07] MEDS ORDERED: HALOPERIDOL 5 MG/ML VIAL IVP STA (13:55)
[2018-01-07] MEDS ORDERED: SODIUM CHLORIDE 0.9% 1,000 ML IV ONE (13:56)
[2018-01-07 14:22] LABS: BASOPHILS # (AUTO) 0.1 10^3/uL (0.0-0.1); BASOPHILS % (AUTO) 0.6 %; EOSINOPHILS # (AUTO) 0.1 10^3/uL (0.0-0.7); EOSINOPHILS % (AUTO) 1.3 %; HGB - HEMOGLOBIN 15.1 g/dL (14.0-18.0); LYMPHOCYTES # (AUTO) 1.8 10^3/uL (1.5-3.5); LYMPHOCYTES % (AUTO) 20.1 %; MEAN CORPUSCULAR HEMOGLOBIN 26.8 pg (27.0-31.0); MEAN CORPUSCULAR HGB CONC 32.6 g/dL (32.0-36.0); MEAN CORPUSCULAR VOLUME 82.3 fL (80.0-94.0); MEAN PLATELET VOLUME 7.2 fL (7.4-11.4); MONOCYTES # (AUTO) 0.8 10^3/uL (0.0-1.0); MONOCYTES % (AUTO) 8.2 %; NEUTROPHILS # (AUTO) 6.4 10^3/uL (1.5-6.6); NEUTROPHILS % (AUTO) 69.8 %; PLT - PLATELET COUNT 300 10^3/uL (130-450); RED BLOOD COUNT 5.64 10^6/uL (4.70-6.10); RED CELL DISTRIBUTION WIDTH 15.2 % (12.0-15.0); WHITE BLOOD COUNT 9.2 x10^3/uL (4.8-10.8)
--- NOTE | 2018-01-07 14:27 | ED Physician Documentation ---
History of Present Illness - Stated complaint Stated Complaint: ABD PX - Additonal information Additional information: hx from pt 37 male no prior abd surgeries chronic abd pain NV has had an extensive work up including CTAP MRCP RUQ sono EGD colonoscopy has had elevated lipase at times, highest was 900, but often normal uses marijuana and is improved with hot showers and has been advised this could be cannaboid hyperemesis and states he has cut down on marijuana but sx persist he has been referred to [facility] and had another CTAP there and is now waiting to see GI to ED 2 days agai and again today BIBA for severe abd pain NV no fever no diarrhea no bad food travel sick contacts etc Review of Systems Constitutional: denies: Fever, Chills Cardiac: denies: Chest pain / pressure Respiratory: denies: Dyspnea GI: reports: Abdominal Pain, Nausea, Vomiting. denies: Diarrhea : denies: Dysuria, Hematuria Musculoskeletal: reports: Back pain (rad from abd) Endocrine: denies: Easy bruising / bleeding Immunocompromised: denies: Immunocompromised PD PAST MEDICAL HISTORY - Past Medical History Cardiovascular: Hypertension Respiratory: None Neuro: None Endocrine/Autoimmune: None GI: Pancreatitis : None HEENT: None Psych: None Musculoskeletal: None Derm: None - Past Surgical History Past Surgical History: Yes Ortho: Other - Present Medications Home Medications: Ambulatory Orders Medication Instructions Recorded Confirmed Sucralfate [Carafate] 1 gm PO ACHS 10/25/17 11/18/17 Amlodipine Besylate 10 mg PO DAILY 10/29/17 11/18/17 Omeprazole [PriLOSEC] 20 mg PO QPM 11/16/17 11/18/17 Ondansetron HCl [Zofran] 8 mg PO Q8HR PRN #30 tablet 11/17/17 11/18/17 raNITIdine HCl [Ranitidine HCl] 300 mg PO DAILY 11/17/17 11/18/17 Ibuprofen 600 mg PO Q6HR PRN #30 tablet 11/19/17 Ondansetron Odt [Zofran] 4 mg TL Q6H PRN #20 tablet 12/10/17 Promethazine [Phenergan] 25 mg PO Q6H PRN #10 tab 12/10/17 Ondansetron Odt [Zofran] 4 mg TL Q6H PRN #10 tablet 01/07/18 - Allergies Allergies/Adverse Reactions: Allergies Allergy/AdvReac Type Severity Reaction Status Date / Time morphine Allergy Hives Verified 01/05/18 17:30 - Social History Does the pt smoke?: Yes Smoking Status: Current every day smoker Does the pt drink ETOH?: No Does the pt have substance abuse?: Yes - Immunizations Immunizations are current?: No - POLST Patient has POLST: No POLST Status: Full Code PD ED PE NORMAL - Vitals Vital signs reviewed: Yes - Cardiac Cardiac: RRR - Respiratory Respiratory: No respiratory distress, Clear bilaterally - Abdomen Abdomen: Soft, Other (diffuse TTP with vol guarding) - Derm Derm: Normal color - Neuro Neuro: Alert and oriented X 3 Results - Vitals Vitals: Vital Signs - 24 hr 01/07/18 01/07/18 13:56 15:23 Temperature 36.9 C 36.8 C Heart Rate 82 62 Respiratory 18 15 Rate Blood Pressure 150/90 H 131/73 H O2 Saturation 97 98 Oxygen O2 Source Room air - Tele (time rhythm occurred) 1520 Telemetry / rhythm strip: Other (QT not long) - Labs Labs: Laboratory Tests 01/07/18 01/07/18 14:15 14:15 WBC 9.2 RBC 5.64 Hgb 15.1 Hct 46.5 MCV 82.3 MCH 26.8 L MCHC 32.6 RDW 15.2 H Plt Count 300 MPV 7.2 L Neut # (Auto) 6.4 Lymph # (Auto) 1.8 [place] # (Auto) 0.8 Eos # (Auto) 0.1 Baso # (Auto) 0.1 Absolute Nucleated RBC 0.00 Nucleated RBC % 0.0 Sodium 134 L Potassium 3.5 Chloride 100 L Carbon Dioxide 23 Anion Gap 11.0 BUN 36 H Creatinine 1.7 H Estimated GFR (MDRD) 55 L Glucose 108 H Calcium 9.1 Total Bilirubin 0.4 AST 55 H ALT 103 H Alkaline Phosphatase 74 Total Protein 8.2 Albumin 4.9 Globulin 3.3 Albumin/Globulin Ratio 1.5 Lipase 33 PD MEDICAL DECISION MAKING - ED course ED course: pt better with haldol ready to go home advised pt of new renal insuff (could be dehydration) and mildly elev LFTs he is being folowed by and had a CT recently and is awaiting CT results and GI follow up also he has a heme onc appt for a lab abn during his last admission - Sepsis Event Vital Signs: Vital Signs - 24 hr 01/07/18 01/07/18 13:56 15:23 Temperature 36.9 C 36.8 C Heart Rate 82 62 Respiratory 18 15 Rate Blood Pressure 150/90 H 131/73 H O2 Saturation 97 98 Oxygen O2 Source Room air Departure - Departure Disposition: 01 Home, Self Care Clinical Impression: Abdominal pain, Cyclical vomiting Condition: Good Instructions: ED Abdominal Pain Unkn Cause Prescriptions: Ondansetron Odt [Zofran] 4 mg TL Q6H PRN #10 tablet PRN Reason: Nausea / Vomiting Comments: Your lipase was normal today Two of your liver tests were very mildly elevated - please ask the GI specialist about this at your consult appointment And you had some renal insufficiency today which could be due to dehydration - you need to drink plenty of fluids and that should be rechecked in a week As we have discussed before, i think marijuana use is playing a role in your recurrent bouts of abdominal pain and vomiting and I strongly recommend you stop all marijuana use - it won't be immediate but within a few weeks or months of stopping marijuana there is a good chance all the symptoms will be gone I reviewed your records but am unable to identify what abnormal lab you were referred to the heme onc specialist for I have written for more zofran - wait at least 12 hr to take that medication because it could interact with the haldol we have you here Discharge Date/Time: 01/07/18 15:40
[2018-01-07 14:35] LABS: ALBUMIN 4.9 g/dL (3.2-5.5); ALBUMIN/GLOBULIN RATIO 1.5 (1.0-2.2); BILIRUBIN,TOTAL 0.4 mg/dL (0.2-1.0); CALCIUM 9.1 mg/dL (8.5-10.3); CREATININE 1.7 mg/dL (0.6-1.2); TOTAL PROTEIN 8.2 g/dL (6.7-8.2)
[2018-01-07 15:23] VITALS: BP 131/73
== END 2018-01-07 15:40 | disposition home or self-care (01) ==
LOC: EDUNIT# → ED 13:48 → SUPCPDRO 13:48 → ED 15:40
DX: R10.9 Unspecified abdominal pain (principal); G43.A0 Cyclical vomiting, in migraine, not intractable; I10 Essential (primary) hypertension; F17.200 Nicotine dependence, unspecified, uncomplicated; N28.9 Disorder of kidney and ureter, unspecified; Z87.19 Personal history of other diseases of the digestive system; R79.89 Other specified abnormal findings of blood chemistry
CPT/HCPCS: 36415; 80053; 83690; 85025; 96365; 96366; 96375; 99283; 99284; J7040

== ENCOUNTER 2018-01-08 02:21 | Outpatient (CLI) | payer MEDICAID | END 2018-01-08 02:22 | disposition critical access hospital (66) | LOC: EMS 02:21 | PROVIDERS: ATTEND Surgery | DX: R10.9 Unspecified abdominal pain (principal) | CPT/HCPCS: A0425; A0429 ==

== ENCOUNTER 2018-01-08 02:39 | Emergency (ER) | payer MEDICAID ==
--- NOTE | 2018-01-08 03:03 | ED Physician Documentation ---
PD HPI NVD - Stated complaint Stated Complaint: ABD PAIN - Chief complaint Chief Complaint: Abd Pain - History obtained from History obtained from: Patient, EMS - History of Present Illness Timing - onset: How many days ago (has had increased upper abd pain the past few days. History of same in the past. Was seen 3 times in the past 3 days. Improved with IV meds and fluids and felt well enough to go home. However pain worse again as got home and tried eating.) Timing - duration: Days Timing - details: Gradual onset, Still present, Waxing and waning Associated symptoms: Abdominal pain, Loss of appetite. No: Fever, Near syncope / syncope, Weight loss Contributing factors: No: Sick contact, Bad food, Travel, Recent antibiotics, Diabetes Improved by: Eating, Laying still Worsened by: Moving Similar symptoms before: Diagnosis (some element of pancreatitis, some gastritis , some cyclic vomiting.) Recently seen: Emergency Dept (3 times in the past 3 days (now fourth visit).) Review of Systems Constitutional: reports: Myalgias, Fatigue. denies: Fever, Chills Nose: denies: Rhinorrhea / runny nose, Congestion Throat: denies: Sore throat Cardiac: denies: Chest pain / pressure, Palpitations Respiratory: denies: Dyspnea, Cough GI: reports: Abdominal Pain, Nausea, Vomiting. denies: Constipation, Diarrhea, Bloody / black stool : denies: Dysuria, Frequency Skin: denies: Rash, Lesions Neurologic: reports: Headache. denies: Confused, Altered mental status, Head injury Psychiatric: reports: Depressed Endocrine: denies: Polydypsia Immunocompromised: denies: Immunocompromised PD PAST MEDICAL HISTORY - Past Medical History Cardiovascular: Hypertension Respiratory: None Neuro: None Endocrine/Autoimmune: None GI: Pancreatitis : None HEENT: None Psych: None Musculoskeletal: None Derm: None - Past Surgical History Past Surgical History: Yes Ortho: Other - Present Medications Home Medications: Ambulatory Orders Medication Instructions Recorded Confirmed Sucralfate [Carafate] 1 gm PO ACHS 10/25/17 11/18/17 Amlodipine Besylate 10 mg PO DAILY 10/29/17 11/18/17 Omeprazole [PriLOSEC] 20 mg PO QPM 11/16/17 11/18/17 Ondansetron HCl [Zofran] 8 mg PO Q8HR PRN #30 tablet 11/17/17 11/18/17 raNITIdine HCl [Ranitidine HCl] 300 mg PO DAILY 11/17/17 11/18/17 Ibuprofen 600 mg PO Q6HR PRN #30 tablet 11/19/17 Ondansetron Odt [Zofran] 4 mg TL Q6H PRN #20 tablet 12/10/17 Promethazine [Phenergan] 25 mg PO Q6H PRN #10 tab 12/10/17 Ondansetron Odt [Zofran] 4 mg TL Q6H PRN #10 tablet 01/07/18 Lidocaine Viscous 2% [Xylocaine 5 ml PO Q4H PRN #1 bottle 01/08/18 Viscous 2%] - Allergies Allergies/Adverse Reactions: Allergies Allergy/AdvReac Type Severity Reaction Status Date / Time morphine Allergy Hives Verified 01/08/18 02:47 - Social History Does the pt smoke?: Yes Smoking Status: Current every day smoker Does the pt drink ETOH?: No Does the pt have substance abuse?: Yes - Family History Family history: reports: Non contributory - Immunizations Immunizations are current?: No - POLST Patient has POLST: No POLST Status: Full Code PD ED PE NORMAL - Vitals Vital signs reviewed: Yes - General General: Alert and oriented X 3, Well developed/nourished, Other (appears in distress. anxious. ) - HEENT HEENT: Atraumatic, PERRL (nonicteric), Pharynx benign. No: Moist mucous membranes - Neck Neck: Supple, no meningeal sign, No adenopathy - Cardiac Cardiac: RRR, No murmur - Respiratory Respiratory: Clear bilaterally - Abdomen Abdomen: Normal bowel sounds, Soft, Non distended, No organomegaly, Other - Derm Derm: Normal color, Warm and dry - Extremities Extremities: No tenderness to palpate, Normal ROM s pain, No edema, No calf tenderness / cord - Neuro Neuro: Alert and oriented X 3, No motor deficit, Normal speech Results - Vitals Vitals: Vital Signs - 24 hr 01/08/18 01/08/18 01/08/18 02:40 03:38 04:15 Temperature 37.3 C Heart Rate 84 65 57 L Respiratory 18 15 15 Rate Blood Pressure 191/130 H 190/122 H 120/83 H O2 Saturation 97 97 98 01/08/18 05:26 Temperature Heart Rate 56 L Respiratory 14 Rate Blood Pressure 109/78 O2 Saturation 97 Oxygen O2 Source Room air - Labs Labs: Laboratory Tests 01/08/18 03:24 Sodium 137 Potassium 3.4 L Chloride 100 L Carbon Dioxide 25 Anion Gap 12.0 BUN 31 H Creatinine 1.1 Estimated GFR (MDRD) 91 Glucose 121 H Calcium 9.9 Total Bilirubin 0.7 AST 55 H ALT 113 H Alkaline Phosphatase 95 Total Protein 9.1 H Albumin 5.4 Globulin 3.7 Albumin/Globulin Ratio 1.5 Lipase 101 H PD MEDICAL DECISION MAKING - ED course Complexity details: reviewed old records, reviewed results, re-evaluated patient (feeling improved enough to take oral fluids after antiemetics. Pain improved also with GI cocktail. Watched in ED for 1-2 hours after and he is still doing okay and feels well enough to go home. ), considered differential, d /w patient - Sepsis Event Vital Signs: Vital Signs - 24 hr 01/08/18 01/08/18 01/08/18 02:40 03:38 04:15 Temperature 37.3 C Heart Rate 84 65 57 L Respiratory 18 15 15 Rate Blood Pressure 191/130 H 190/122 H 120/83 H O2 Saturation 97 97 98 01/08/18 05:26 Temperature Heart Rate 56 L Respiratory 14 Rate Blood Pressure 109/78 O2 Saturation 97 Oxygen O2 Source Room air Departure - Departure Disposition: 01 Home, Self Care Clinical Impression: Abdominal pain Qualifiers: Abdominal location: upper abdomen, unspecified Qualified Code(s): R10.10 - Upper abdominal pain, unspecified Cyclical vomiting Qualifiers: Vomiting Intractability: non-intractable Nausea presence: with nausea Qualified Code(s): G43.A0 - Cyclical vomiting, not intractable Condition: Stable Record reviewed to determine appropriate education?: Yes Follow-Up: Kristin Hansen ARNP [Primary Care Provider] - Prescriptions: Lidocaine Viscous 2% [Xylocaine Viscous 2%] 5 ml PO Q4H PRN #1 bottle PRN Reason: Pain Comments: Continue usual medications at home including nausea medicines as needed. Use some antacid such as Mylanta. He can add lidocaine to it if needed for discomfort of the stomach. Follow-up with your primary care over the next few days.
[2018-01-08] MEDS ORDERED: HALOPERIDOL 5 MG/ML VIAL IVP ONE (03:14)
[2018-01-08] MEDS ORDERED: diphenhydrAMINE INJ 50 MG/ML VIAL IVP STA (03:14)
[2018-01-08] MEDS ORDERED: SODIUM CHLORIDE 0.9% 1,000 ML IV ONE (03:14)
[2018-01-08] MEDS ORDERED: PROCHLORPERAZINE 10 MG/2 ML VIAL IVP STA (03:14)
[2018-01-08 03:41] LABS: ALBUMIN 5.4 g/dL (3.2-5.5); ALBUMIN/GLOBULIN RATIO 1.5 (1.0-2.2); BILIRUBIN,TOTAL 0.7 mg/dL (0.2-1.0); CALCIUM 9.9 mg/dL (8.5-10.3); CREATININE 1.1 mg/dL (0.6-1.2); TOTAL PROTEIN 9.1 g/dL (6.7-8.2)
[2018-01-08] MEDS ORDERED: MAG HYDROX/AL HYDROX/SIMETH 30 ML UDC PO STA (04:03)
[2018-01-08] MEDS ORDERED: LIDOCAINE VISCOUS 2% 15 ML UDC MM STA (04:03)
[2018-01-08] MEDS ORDERED: PHENobarb/HYOSCY/ATROPINE/SCOP 5 ML UDC PO STA (04:03)
[2018-01-08 06:08] VITALS: BP 116/87
== END 2018-01-08 06:13 | disposition home or self-care (01) ==
LOC: EDUNIT# → ED 02:39 → SUPCPDRO 02:39 → ED 06:13
DX: R10.10 Upper abdominal pain, unspecified (principal); G43.A0 Cyclical vomiting, in migraine, not intractable; I10 Essential (primary) hypertension; F17.200 Nicotine dependence, unspecified, uncomplicated
CPT/HCPCS: 36415; 80053; 83690; 96361; 96374; 96375; 99283; A9270; J1200

== ENCOUNTER 2018-01-10 22:40 | Outpatient (CLI) | payer MEDICAID | END 2018-01-10 22:41 | disposition critical access hospital (66) | LOC: EMS 22:40 | PROVIDERS: ATTEND Surgery | DX: R10.9 Unspecified abdominal pain (principal); R11.2 Nausea with vomiting, unspecified | CPT/HCPCS: A0425; A0427 ==

== ENCOUNTER 2018-01-10 22:58 | Emergency (ER) | payer MEDICAID ==
[2018-01-10 23:08] VITALS: BP 139/85
== END 2018-01-11 00:25 | disposition left against medical advice (07) ==
LOC: EDUNIT# → ED 22:58
DX: Z53.21 Procedure and treatment not carried out due to patient leaving prior to being seen by health care provider (principal)
CPT/HCPCS: 99282

== ENCOUNTER 2018-01-12 21:36 | Outpatient (CLI) | payer MEDICAID | END 2018-01-12 21:37 | disposition short-term general hospital (02) | LOC: EMS 21:36 | PROVIDERS: ATTEND Surgery | DX: R10.12 Left upper quadrant pain (principal) | CPT/HCPCS: A0425; A0427 ==

== ENCOUNTER 2018-02-08 17:55 | Outpatient (CLI) | payer MEDICAID | END 2018-02-08 17:56 | disposition critical access hospital (66) | LOC: EMS 17:55 | PROVIDERS: ATTEND Surgery | DX: R10.12 Left upper quadrant pain (principal); R11.2 Nausea with vomiting, unspecified | CPT/HCPCS: A0425; A0429; A0999 ==

== ENCOUNTER 2018-02-08 18:15 | Observation (INO) | payer MEDICAID ==
--- NOTE | 2018-02-08 18:54 | ED Physician Documentation ---
PD HPI ABD PAIN - Stated complaint Stated Complaint: ABD PX - Chief complaint Chief Complaint: Abd Pain - History obtained from History obtained from: Patient - History of Present Illness Timing - onset: Yesterday Timing - duration: Days (2) Timing - details: Abrupt onset, Still present, Constant Quality: Cramping, Aching, Pain Location: Epigastric Radiation: Upper back Associated symptoms: Nausea, Vomiting (repetitive and persistent with any attempted oral intake.) Similar symptoms before: Diagnosis (sometimes pancreatitis, gastritis or cyclic vomiting) Recently seen: Emergency Dept (multiple visits to the ER for similar, usually treatable with IV meds (commonly Haldol, Compazine, fluids help - has not gotten narcotics lately; last hospitalization in November 2017).) Review of Systems Constitutional: denies: Fever, Myalgias Nose: denies: Rhinorrhea / runny nose, Congestion Throat: denies: Sore throat Respiratory: denies: Cough GI: reports: Abdominal Pain, Nausea, Vomiting. denies: Diarrhea, Hematemesis, Bloody / black stool : denies: Dysuria, Frequency Neurologic: reports: Generalized weakness. denies: Focal weakness, Numbness, Altered mental status, Headache PD PAST MEDICAL HISTORY - Past Medical History Cardiovascular: Hypertension Respiratory: None Neuro: None Endocrine/Autoimmune: None GI: Pancreatitis : None HEENT: None Psych: None Musculoskeletal: None Derm: None - Past Surgical History Past Surgical History: Yes Ortho: Other - Present Medications Home Medications: Ambulatory Orders Medication Instructions Recorded Confirmed Sucralfate [Carafate] 1 gm PO ACHS 10/25/17 01/17/18 Amlodipine Besylate 10 mg PO DAILY 10/29/17 01/17/18 Omeprazole [PriLOSEC] 20 mg PO QPM 11/16/17 01/17/18 Ondansetron HCl [Zofran] 8 mg PO Q8HR PRN #30 tablet 11/17/17 01/17/18 raNITIdine HCl [Ranitidine HCl] 300 mg PO DAILY 11/17/17 01/17/18 Ibuprofen 600 mg PO Q6HR PRN #30 tablet 11/19/17 01/17/18 Promethazine [Phenergan] 25 mg PO Q6H PRN #10 tab 12/10/17 01/17/18 Lidocaine Viscous 2% [Xylocaine 5 ml PO Q4H PRN #1 bottle 01/08/18 01/17/18 Viscous 2%] - Allergies Allergies/Adverse Reactions: Allergies Allergy/AdvReac Type Severity Reaction Status Date / Time morphine Allergy Hives Verified 02/08/18 18:41 - Social History Does the pt smoke?: Yes Smoking Status: Current every day smoker Does the pt drink ETOH?: No Does the pt have substance abuse?: Yes - Immunizations Immunizations are current?: No - POLST Patient has POLST: No POLST Status: Full Code PD ED PE NORMAL - Vitals Vital signs reviewed: Yes - General General: Alert and oriented X 3, Well developed/nourished, Other (appears uncomfortable with dry heaving and some bilious fluid. No hematemesis in the bag. ) - HEENT HEENT: Pharynx benign - Neck Neck: Supple, no meningeal sign, No adenopathy - Cardiac Cardiac: RRR, No murmur - Respiratory Respiratory: Clear bilaterally - Abdomen Abdomen: Non distended, No organomegaly, Other (tender with guarding upper abdomen, with percussion tenderness. Lower abd not tender and no referred tenderness. ). No: Normal bowel sounds (increased) - Male Male : Deferred - Rectal Rectal: Deferred - Back Back: No CVA TTP - Derm Derm: Normal color - Extremities Extremities: No deformity, No tenderness to palpate, Normal ROM s pain, No edema , No calf tenderness / cord - Neuro Neuro: Alert and oriented X 3, No motor deficit, Normal speech - Psych Psych: Normal mood. No: Normal affect (somewhat anxious) Results - Vitals Vitals: Vital Signs - 24 hr 02/08/18 02/08/18 18:38 22:30 Temperature 35.8 C L 36.6 C Heart Rate 57 L 55 L Respiratory 20 18 Rate Blood Pressure 219/123 H 181/110 H O2 Saturation 98 100 Oxygen O2 Source Room air - Labs Labs: Laboratory Tests 02/08/18 02/08/18 18:43 18:43 WBC 9.1 RBC 5.26 Hgb 14.3 Hct 43.8 MCV 83.3 MCH 27.2 MCHC 32.6 RDW 14.6 Plt Count 263 MPV 7.7 Neut # (Auto) 5.2 Lymph # (Auto) 2.8 [place] # (Auto) 0.8 Eos # (Auto) 0.2 Baso # (Auto) 0.1 Absolute Nucleated RBC 0.00 Nucleated RBC % 0.0 Sodium 141 Potassium 3.5 Chloride 106 Carbon Dioxide 24 Anion Gap 11.0 BUN 20 Creatinine 1.1 Estimated GFR (MDRD) 91 Glucose 118 H Calcium 10.0 Magnesium 2.2 Total Bilirubin 0.7 AST 36 ALT 45 Alkaline Phosphatase 77 Total Protein 8.5 H Albumin 5.4 Globulin 3.1 Albumin/Globulin Ratio 1.7 Lipase 89 H PD MEDICAL DECISION MAKING - ED course Complexity details: reviewed old records, re-evaluated patient (repeated doses of IV meds and fluids with brief improvement of nausea. Best effect was with Haldol and he slept for an hour or so. Nauseated after roused. BP elevated c/w prior visits and it usually improves as he feels better. He is not improving with repeated doses meds. So will need to have him persisting treatment in the hospital. ), considered differential, d/w patient - Sepsis Event Vital Signs: Vital Signs - 24 hr 02/08/18 02/08/18 18:38 22:30 Temperature 35.8 C L 36.6 C Heart Rate 57 L 55 L Respiratory 20 18 Rate Blood Pressure 219/123 H 181/110 H O2 Saturation 98 100 Oxygen O2 Source Room air Departure - Departure Disposition: ED Place in Observation Clinical Impression: Persistent recurrent vomiting Intractable vomiting with nausea Qualifiers: Vomiting type: cyclical vomiting Qualified Code(s): G43.A1 - Cyclical vomiting , intractable Gastritis Qualifiers: Gastritis type: unspecified gastritis Chronicity: chronic Gastritis bleeding: without bleeding Qualified Code(s): K29.50 - Unspecified chronic gastritis without bleeding Condition: Stable Record reviewed to determine appropriate education?: Yes Instructions: ED Nausea Vomiting Follow-Up: Kristin Hansen ARNP [Primary Care Provider] - Comments: Continue usual medications at home. Clear liquids only for 12-24 hours. Return if worse again.
[2018-02-08] MEDS ORDERED: HALOPERIDOL 5 MG/ML VIAL IVP ONE ×2 (19:05→21:57)
[2018-02-08] MEDS ORDERED: diphenhydrAMINE INJ 50 MG/ML VIAL IVP STA (19:05)
[2018-02-08] MEDS ORDERED: SODIUM CHLORIDE 0.9% 1,000 ML IV ONE (19:05)
[2018-02-08] MEDS ORDERED: KETOROLAC 15 MG/ML VIAL IVP STA (19:06)
[2018-02-08] MEDS ORDERED: ACETAMINOPHEN 1,000 MG/100 ML 100 ML IV STA (19:07)
[2018-02-08 19:22] LABS: ALBUMIN 5.4 g/dL (3.2-5.5); ALBUMIN/GLOBULIN RATIO 1.7 (1.0-2.2); BASOPHILS # (AUTO) 0.1 10^3/uL (0.0-0.1); BASOPHILS % (AUTO) 0.8 %; BILIRUBIN,TOTAL 0.7 mg/dL (0.2-1.0); CREATININE 1.1 mg/dL (0.6-1.2); EOSINOPHILS # (AUTO) 0.2 10^3/uL (0.0-0.7); EOSINOPHILS % (AUTO) 2.5 %; HGB - HEMOGLOBIN 14.3 g/dL (14.0-18.0); LYMPHOCYTES # (AUTO) 2.8 10^3/uL (1.5-3.5); LYMPHOCYTES % (AUTO) 30.4 %; MAGNESIUM 2.2 mg/dL (1.7-2.8); MEAN CORPUSCULAR HEMOGLOBIN 27.2 pg (27.0-31.0); MEAN CORPUSCULAR HGB CONC 32.6 g/dL (32.0-36.0); MEAN CORPUSCULAR VOLUME 83.3 fL (80.0-94.0); MEAN PLATELET VOLUME 7.7 fL (7.4-11.4); MONOCYTES # (AUTO) 0.8 10^3/uL (0.0-1.0); MONOCYTES % (AUTO) 9.3 %; NEUTROPHILS # (AUTO) 5.2 10^3/uL (1.5-6.6); PLT - PLATELET COUNT 263 10^3/uL (130-450); RED BLOOD COUNT 5.26 10^6/uL (4.70-6.10); RED CELL DISTRIBUTION WIDTH 14.6 % (12.0-15.0); TOTAL PROTEIN 8.5 g/dL (6.7-8.2); WHITE BLOOD COUNT 9.1 x10^3/uL (4.8-10.8)
[2018-02-08] MEDS ORDERED: PROCHLORPERAZINE 10 MG/2 ML VIAL IVP STA (20:38)
[2018-02-08] MEDS ORDERED: MAG HYDROX/AL HYDROX/SIMETH 30 ML UDC PO STA (20:38)
[2018-02-08] MEDS ORDERED: ONDANSETRON 4 MG/2 ML VIAL IVP STA (22:48)
[2018-02-08] MEDS ORDERED: LIDOCAINE VISCOUS 2% 100 ML BOTTLE MM PRN (23:58)
[2018-02-08] MEDS ORDERED: PROMETHAZINE 25 MG/1 ML VIAL IM PRN (23:59)
[2018-02-08] MEDS ORDERED: LORazepam 2 MG/ML VIAL IVP PRN (23:59)
[2018-02-08] MEDS ORDERED: PROCHLORPERAZINE 10 MG/2 ML VIAL IVP PRN (23:59)
[2018-02-08] MEDS ORDERED: SODIUM CHLORIDE FLUSH 0.9% 10 ML SYRINGE IVP PRN (23:59)
[2018-02-08] MEDS ORDERED: ONDANSETRON 4 MG/2 ML VIAL IVP PRN (23:59)
[2018-02-08] MEDS ORDERED: ACETAMINOPHEN 1,000 MG/100 ML 100 ML IV PRN (23:59)
[2018-02-08] MEDS ORDERED: HALOPERIDOL 5 MG/ML VIAL IM PRN (23:59)
--- NOTE | 2018-02-09 00:09 | HISTORY & PHYSICAL EXAMINATION ---
Chief Complaint - Chief Complaint Chief Complaint: Abdominal pain, nausea and vomiting History of Present Illness - Admitted From Admitted From:: Emergency department - History Obtained From Records Reviewed: Yes History obtained from: Patient and medical records Exam Limitations: None - History of Present Illness HPI Comment/Other: Patient is a 36-year-old -[place] gentleman who has had intermittent left upper quadrant abdominal pain since approximately 2007. 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 Between then and now, he has relatively quiescent disease state up until 2014. He then had another episode of left upper quadrant abdominal pain for which he was admitted for pancreatitis. From 2014 till 2016 his disease state was quiescent. But between 2016 and now, he has been admitted 05/18/2015, 04/03/2017, 04/27/2017, 05/27/2017, 10/29/2017, 11/16/2017 and then again on 11/18/2017. In addition to our hospital he has been admitted twice to [facility] in the same period of time. All of these admissions have been for intractable nausea and vomiting with left upper quadrant abdominal pain. He has had lipase as high as 900 or so at [facility]. For us here his highest lipase has been 327. He has not drank since 2016. In addition to the admissions this gentleman has had 25 ER visits since July this year alone. Today would be his th visit. Again they are all for the same problem of intractable nausea and vomiting with left upper quadrant abdominal pain. Workup has had 6 CT scans of the abdomen, and MRCP. An ultrasound of the abdomen done here. An ultrasound of the abdomen done at [facility]. He has had a colonoscopy in 04/2017 and he has had an EGD in . None of these studies have delineated why this uncomfortable gentleman has an elevated amylase, nor has it delineated any anatomical abnormalities. He has had an intact biliary and pancreatic ductal system that appears grossly normal on MRCP. He has had no stones or thickened gallbladder on ultrasound or his abdominal CTs. He is being followed by nurse practitioner Kristin Hansen for his primary care provider. She last saw him on 11/09/2017 and he appears to be compliant with most of his visits. She is in the process of getting ready to refer him to the [facility]. He has already been seen by Dr. Miller at [facility] gastroenterology. Dr. Miller is the one that recommended the MRCP. Other than the etiology of this pancreatitis being alcohol induced, Dr. Miller's note does not include an extensive differential. He has still not had a chance to see GI. In 2016 this patient weighed close to 82 kg. With the his episodes of nausea and vomiting unable to eat, in spite of severe hunger, his weight has drifted down to 63.5 kg. 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 He states that he went to the bathroom and had a bowel movement. He states that after the bowel movement the pain became progressively worse. He states that he then began feeling nauseated and began vomiting. He states he then went to the shower and try to see if he would feel better after showering but this did not appear to improve his symptoms. He states that the pain, nausea and vomiting continued to worsen so he then came to the emergency department. He denies any fevers or chills. He denies any diarrhea. He does admit to continued marijuana use and tobacco use. He denies drinking any alcohol. He denies any sick contacts. The patient denies any headache, blurred vision, runny nose, sore throat, nasal congestion, difficulty swallowing, chest pain, cough, fever, chills, shortness of air, orthopnea, PND, increased lower extremity swelling, urinary urgency, urinary frequency, dysuria, joint pain, joint swelling, back pain, neck stiffness, skin changes, hair loss, polyuria, polydipsia or any focal neurologic deficits. On presentation to the emergency department the patient was afebrile, he was bradycardic which is chronic for him. The patient was very hypertensive with a blood pressure of 219/123 which often occurs when the patient is in severe pain and when he does present with the symptoms. The patient was otherwise not in any respiratory distress. The patient underwent routine lab work which showed no leukocytosis, and all his electrolytes were within normal limits. The patient's lipase was 89. The patient did not undergo any imaging given his previous history of multiple images without any obvious findings. The patient received IV fluid, Compazine, Zofran, Toradol, Haldol, Benadryl, Mylanta and IV Tylenol while he was in the emergency department and initially appeared to have some relief of symptoms. The patient however tried a p.o. challenge and failed. The patient again began vomiting and abdominal pain continued to worsen. Given the patient's continued symptoms it was decided that he would need an observation stay for symptoms to resolve. Patient was placed in observation. History - Past Medical History Cardiovascular: reports: Hypertension Respiratory: reports: None Neuro: reports: None Endocrine/Autoimmune: reports: None GI: reports: Pancreatitis : reports: None HEENT: reports: None Psych: reports: None Musculoskeletal: reports: None Derm: reports: None MRSA Hx?: No - Past Surgical History Ortho: reports: Other - Family & Social History Family History: Mother: Alive and Well, Hypertension, Father: Alive and Well, Hypertension, Renal Disease/Failure, Other family: Mental Illness Family History Comment/Other: Patient's mother has obesity, hypertension, arthritis and history of aortic dissection with aneurysm at the age of 50. One brother had a bicuspid aortic valve and had an aneurysm in his 20s. Social History Notes: He is unmarried. He does have 6 children with several mothers. His youngest child is 1 year old and his oldest is 19. 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 He now works in [employer]. He was drinking up to a pack and a half of beer a day when he stopped drinking in 2016. He does use cannabis daily he states that he smokes about a gram a day. The patient does smoke cigarettes about half a pack a day and has been doing so since his teen years. He denies any use of cocaine, heroin, LSD, methamphetamines. He denies any IV drug abuse. He is currently living with his mother and father and 1 of his brothers. While he is independent with activities of daily living with regard to dressing himself and feeding himself he is usually too tired to do much else. He still cooks for the family in general. In any given time many of his siblings, nieces and nephews are around the house and he participates in cooking and cleaning in the kitchen. - Substance History Use: Uses substance without health or social issues: Tobacco, Cannabis - POLST Patient has POLST: No POLST Status: Full Code Meds/Allgy - Home Medications Home Medications: Ambulatory Orders Medication Instructions Recorded Confirmed Sucralfate [Carafate] 1 gm PO ACHS 10/25/17 01/17/18 Amlodipine Besylate 10 mg PO DAILY 10/29/17 01/17/18 Omeprazole [PriLOSEC] 20 mg PO QPM 11/16/17 01/17/18 Ondansetron HCl [Zofran] 8 mg PO Q8HR PRN #30 tablet 11/17/17 01/17/18 raNITIdine HCl [Ranitidine HCl] 300 mg PO DAILY 11/17/17 01/17/18 Ibuprofen 600 mg PO Q6HR PRN #30 tablet 11/19/17 01/17/18 Promethazine [Phenergan] 25 mg PO Q6H PRN #10 tab 12/10/17 01/17/18 Lidocaine Viscous 2% [Xylocaine 5 ml PO Q4H PRN #1 bottle 01/08/18 01/17/18 Viscous 2%] - Allergies Allergies/Adverse Reactions: Allergies Allergy/AdvReac Type Severity Reaction Status Date / Time morphine Allergy Hives Verified 02/08/18 18:41 Review of Systems - Other Findings Other Findings: A comprehensive review of systems was performed the pertinent positives and negatives are stated above in the HPI and the remainder of the review of systems is negative. Exam - Vital Signs Reviewed Vital Signs: Yes Vital Signs: Vital Signs x48h Temp Pulse Resp BP Pulse Ox 02/08/18 22:30 36.6 C 55 L 18 181/110 H 100 02/08/18 18:38 35.8 C L 57 L 20 219/123 H 98 - Physical Exam General Appearance: positive: Alert, Moderate distress (secondary to abdominal pain), Anxious, Other (drowsy from medication) Eyes Bilateral: positive: Normal inspection, PERRL, EOMI, No lid inflammation, Conjunctivae nml, No scleral icterus ENT: positive: ENT inspection nml, Pharynx nml, Dry mucous membranes. negative : Purulent nasal drainage, Pharyngeal erythema, Oral lesions Neck: positive: Nml inspection, Thyroid nml, No JVD, Trachea midline. negative : Thyromegaly, Lymphadenopathy (R), Lymphadenopathy (L), Carotid bruit, Tracheal deviation Respiratory: positive: Chest non-tender, No respiratory distress, Breath sounds nml. negative: Wheezes, Rales, Rhonchi Cardiovascular: positive: Regular rate & rhythm, No murmur, No gallop Peripheral Pulses: positive: 2+ Abdomen: positive: No organomegaly, Nml bowel sounds, No distention, Tenderness (diffuse worse in the mid abdomen and epigastic area). negative: Guarding, Rebound Back: positive: Nml inspection. negative: CVA tenderness (R), CVA tenderness (L ) Skin: positive: Color nml, No rash, Warm, Dry. negative: Cyanosis, Diaphoresis , Pallor, Skin rash Extremities: positive: Non-tender, Full ROM, Nml appearance, No pedal edema Neurologic/Psychiatric: positive: Oriented x3, CN's nml (2-12), Motor nml, Sensation nml, Mood/affect nml Conclusion/Plan - Problem List (1) Intractable abdominal pain Conclusion/Plan: Patient has history of intractable abdominal pain of unknown etiology. Patient has been worked up with multiple CTs, MRCP and abdominal ultrasounds none of which has revealed a etiology of his pain. The patient has had pancreatitis in the past and may have chronic pancreatitis although his CT and MRCP does not reveal evidence of chronic pancreatitis. The patient does smoke marijuana daily. It is possible that the patient may have cyclic vomiting syndrome from excessive marijuana use or unspecified cyclic vomiting syndrome. The patient is in the process of being referred to the [facility] for further evaluation by gastroenterology for her to find etiology of his abdominal pain and intractable symptoms of nausea and vomiting. Currently the patient is being placed in observation as he has a flareup of his above problem. Recently the ER has decided to stop giving the patient narcotics in the ER and today he was only given IV tylenol and toradol. We will keep consistent and continue to do this in the hospital as the narcotics do not appear to help his pain. Plan: Patient will be placed on IV Tylenol and IV Toradol Patient will be given IV fluids We will monitor pain. (2) Intractable nausea and vomiting Conclusion/Plan: The patient has unspecified abdominal pain with intractable nausea and vomiting. As stated above he has had extensive workup without any obvious diagnosis being reached. It is possible the patient may have cyclic vomiting syndrome especially given the number of hospitalizations for intractable nausea and vomiting. Plan: Patient will be placed on IV Zofran, IM Phenergan and IV Compazine. He will also get IV Haldol and IV Ativan as needed for nausea and vomiting. He will be placed on IV reglan ATC for nausea. Typically the patient's symptoms do resolve within 24 hours and he will be monitored in observation until symptoms resolve. Patient will be given IV fluids as he does appear to be dehydrated Qualifiers: Vomiting type: cyclical vomiting Qualified Code(s): G43.A1 - Cyclical vomiting, intractable (3) Sinus bradycardia Conclusion/Plan: The patient has sinus bradycardia which he has had in the past. He has been evaluated with an echocardiogram in April 2017 which showed mild concentric left ventricular hypertrophy but otherwise normal EF and no other dysfunction. The patient's bradycardia could have been due to the fact he received Haldol in the emergency department however he has had bradycardia before in the past. The patient does not appear symptomatic from his sinus bradycardia. Monitor and avoid any medications that could cause bradycardia. (4) HTN (hypertension) Conclusion/Plan: The patient persistently presents with hypertension with blood pressure in the 200s. The patient's hypertension could be secondary to his abdominal pain. It is unlikely to be the cause of his abdominal pain although it could potentially be the cause of his nausea and vomiting. The patient denies any symptoms of palpitations or diaphoresis when he is blood pressure does become elevated. On patient's previous hospitalization we did check metanephrines to rule out the possibility of pheochromocytoma and it appears that the patient's metanephrines were slightly elevated. Plan: Pain control Continue patient's home dose of amlodipine Monitor blood pressure Patient will need to follow-up as an outpatient for further workup for pheochromocytoma. The patient will need a referral to endocrinology. Qualifiers: Hypertension type: essential hypertension Qualified Code(s): I10 - Essential (primary) hypertension (5) Anxiety and depression Conclusion/Plan: Patient does have history of anxiety and depression and takes Zoloft at home. We will continue the patient's Zoloft once the dose is confirmed. There is the possibility that this could be a psychosomatic pain and nausea. We would need to rule out all other possible causes before coming to this conclusion. (6) Cannabis abuse Conclusion/Plan: The patient does smoke marijuana daily. I did have a discussion with the patient about the possibility of him having cannabinoid cyclic vomiting syndrome. I advised the patient to quit marijuana for longer duration of time to see if the patient's symptoms do resolve. The patient states that he has had theses issues with abdominal pain, nausea and vomiting since before he every started using marijuana. (7) Tobacco abuse Conclusion/Plan: Patient has history of tobacco abuse. He continues to smoke about half a pack a day. The patient was counseled on the risks of smoking. He was offered a nicotine patch. - Lab Results Lab results reviewed: Yes Fish Bones: 02/08/18 18:43 02/08/18 18:43 Other Lab Results: Laboratory Results WBC 9.1 x10^3/uL (4.8-10.8) 02/08/18 18:43 RBC 5.26 10^6/uL (4.70-6.10) 02/08/18 18: Hgb 14.3 g/dL (14.0-18.0) 02/08/18 18: Hct 43.8 % (42.0-52.0) 02/08/18 18: MCV 83.3 fL (80.0-94.0) 02/08/18 18:43 MCH 27.2 pg (27.0-31.0) 02/08/18 18:43 MCHC 32.6 g/dL (32.0-36.0) 02/08/18 18: RDW 14.6 % (12.0-15.0) 02/08/18 18:43 Plt Count 263 10^3/uL (130-450) 02/08/18 18:43 MPV 7.7 fL (7.4-11.4) 02/08/18 18:43 Neut # (Auto) 5.2 10^3/uL (1.5-6.6) 02/08/18 18:43 Lymph # (Auto) 2.8 10^3/uL (1.5-3.5) 02/08/18 18:43 [place] # (Auto) 0.8 10^3/uL (0.0-1.0) 02/08/18 18: Eos # (Auto) 0.2 10^3/uL (0.0-0.7) 02/08/18 18:43 Baso # (Auto) 0.1 10^3/uL (0.0-0.1) 02/08/18 18:43 Absolute Nucleated RBC 0.00 x10^3/uL 02/08/18 18:43 Nucleated RBC % 0.0 /100WBC 02/08/18 18:43 Sodium 141 mmol/L (135-145) 02/08/18 18:43 Potassium 3.5 mmol/L (3.5-5.0) 02/08/18 18:43 Chloride 106 mmol/L (101-111) 02/08/18 18:43 Carbon Dioxide 24 mmol/L (21-32) 02/08/18 18:43 Anion Gap 11.0 (6-13) 02/08/18 18:43 BUN 20 mg/dL (6-20) 02/08/18 18:43 Creatinine 1.1 mg/dL (0.6-1.2) 02/08/18 18:43 Estimated GFR (MDRD) 91 (>89) 02/08/18 18:43 Glucose 118 mg/dL (70-100) H 02/08/18 18:43 Calcium 10.0 mg/dL (8.5-10.3) 02/08/18 18:43 Magnesium 2.2 mg/dL (1.7-2.8) 02/08/18 18:43 Total Bilirubin 0.7 mg/dL (0.2-1.0) 02/08/18 18:43 AST 36 IU/L (10-42) 02/08/18 18:43 ALT 45 IU/L (10-60) 02/08/18 18:43 Alkaline Phosphatase 77 IU/L (42-121) 02/08/18 18:43 Total Protein 8.5 g/dL (6.7-8.2) H 02/08/18 18:43 Albumin 5.4 g/dL (3.2-5.5) 02/08/18 18:43 Globulin 3.1 g/dL (2.1-4.2) 02/08/18 18:43 Albumin/Globulin Ratio 1.7 (1.0-2.2) 02/08/18 18:43 Lipase 89 U/L (22-51) H 02/08/18 18:43 Core Measures - Anticipated LOS I expect patient to be DC'd or transferred within 96 hours.: Yes - DVT/VTE - Prophylaxis VTE/DVT Prophylaxis med ordered at admit?: Yes
[2018-02-09] MEDS: SODIUM CHLORIDE 0.9% 1,000 ML IV SCH ×3 (00:59→20:51)
[2018-02-09] MEDS: SODIUM CHLORIDE FLUSH 0.9% 10 ML SYRINGE IVP SCH ×3 (00:59→17:46)
[2018-02-09] MEDS: KETOROLAC 30 MG/ML VIAL IVP PRN ×2 (01:08→10:59)
[2018-02-09] MEDS: METOCLOPRAMIDE 10 MG/2 ML VIAL IVP SCH ×4 (01:36→19:11)
[2018-02-09 05:49] LABS: ALBUMIN 5.3 g/dL (3.2-5.5); ALBUMIN/GLOBULIN RATIO 1.6 (1.0-2.2); BILIRUBIN,TOTAL 1.1 mg/dL (0.2-1.0); CALCIUM 9.7 mg/dL (8.5-10.3); MAGNESIUM 2.1 mg/dL (1.7-2.8); PHOSPHORUS 3.2 mg/dL (2.5-4.6); TOTAL PROTEIN 8.6 g/dL (6.7-8.2)
[2018-02-09 06:04] LABS: BASOPHILS # (AUTO) 0.1 10^3/uL (0.0-0.1); BASOPHILS % (AUTO) 0.6 %; HGB - HEMOGLOBIN 15.1 g/dL (14.0-18.0); LYMPHOCYTES # (AUTO) 1.2 10^3/uL (1.5-3.5); MEAN CORPUSCULAR HGB CONC 32.8 g/dL (32.0-36.0); MEAN CORPUSCULAR VOLUME 82.2 fL (80.0-94.0); MEAN PLATELET VOLUME 7.9 fL (7.4-11.4); MONOCYTES # (AUTO) 0.3 10^3/uL (0.0-1.0); MONOCYTES % (AUTO) 3.5 %; NEUTROPHILS # (AUTO) 7.6 10^3/uL (1.5-6.6); NEUTROPHILS % (AUTO) 82.9 %; PLT - PLATELET COUNT 273 10^3/uL (130-450); RED BLOOD COUNT 5.59 10^6/uL (4.70-6.10); RED CELL DISTRIBUTION WIDTH 14.7 % (12.0-15.0); WHITE BLOOD COUNT 9.2 x10^3/uL (4.8-10.8)
[2018-02-09] MEDS ORDERED: PANTOPRAZOLE 40 MG VIAL IVP SCH (07:00)
--- NOTE | 2018-02-09 08:21 | PROVIDER PROGRESS NOTE ---
Subjective - Prog Note Date Prog Note Date: 02/09/18 Prog Note Time: 08:21 - Subjective Pt reports feeling: No change Subjective: He gets nauseated, gets antiemetics, gets sleepy and goes to sleep. Wakes up with nausea, has emesis, gets nausea medicines goes back to sleep. So far not really able to keep anything down. He has been placed in observation to see if we can control his nausea and emesis. We will continue to monitor during the day. Current Medications - Current Medications Current Medications: Active Medications Amlodipine Besylate (Norvasc) 10 mg PO DAILY [facility] Enoxaparin Sodium (Lovenox) 40 mg SUBQ DAILY [facility] Haloperidol (Haldol Inj) 2.5 mg IM Q6H PRN PRN Reason: Nausea / Vomiting Acetaminophen (Ofirmev) 100 mls @ 400 mls/hr IV Q6HR PRN PRN Reason: PAIN Last Infusion: 02/09/18 07:04 Dose: Infused Sodium Chloride (Normal Saline 0.9%) 1,000 mls @ 100 mls/hr IV .Q10H [facility] Last Admin: 02/09/18 00:59 Dose: 100 mls/hr Ketorolac Tromethamine (Toradol Inj (30mg)) 30 mg IVP Q6HR PRN PRN Reason: PAIN Stop: 02/13/18 23:58 Last Admin: 02/09/18 01:08 Dose: 30 mg Lorazepam (Ativan Inj (Vial)) 1 mg IVP Q8H PRN PRN Reason: Nausea / Vomiting Last Admin: 02/09/18 01:02 Dose: 1 mg Metoclopramide HCl (Reglan Inj) 5 mg IVP Q6HR [facility] Last Admin: 02/09/18 06:03 Dose: 5 mg Multi-Ingredient Mouthwash/Gargle () 30 ml PO Q6HR [facility] Ondansetron HCl (Zofran Inj) 4 mg IVP Q6HR PRN PRN Reason: Nausea / Vomiting Last Admin: 02/09/18 06:47 Dose: 4 mg Pantoprazole Sodium (Protonix) 40 mg IVP QDAC [facility] Last Admin: 02/09/18 06:03 Dose: 40 mg Polyethylene Glycol (Miralax) 17 gm PO DAILY [facility] Prochlorperazine Edisylate (Compazine Inj) 10 mg IVP Q6HR PRN PRN Reason: Nausea / Vomiting Promethazine HCl (Phenergan Inj) 25 mg IM Q6HR PRN PRN Reason: Nausea / Vomiting Sodium Chloride (Normal Saline Flush 0.9%) 10 ml IVP PRN PRN PRN Reason: NEEDED PER PROVIDER ORDERS Last Admin: 02/09/18 06:03 Dose: 10 ml Sodium Chloride (Normal Saline Flush 0.9%) 10 ml IVP 0100,0900,1700 [facility] Last Admin: 02/09/18 00:59 Dose: 10 ml Sucralfate (Carafate) 1 gm PO ACHS [facility] Sucralfate [Carafate] 1 gm PO ACHS 10/25/17 Amlodipine Besylate 10 mg PO DAILY 10/29/17 Omeprazole [PriLOSEC] 20 mg PO QPM 11/16/17 raNITIdine HCl [Ranitidine HCl] 300 mg PO DAILY 11/17/17 Objective - Vital Signs/Intake & Output Reviewed Vital Signs: Yes Vital Signs: Vital Signs x48h Temp Pulse Pulse Pulse Resp BP BP 02/09/18 07:57 37.3 C 57 L 20 179/100 H 02/09/18 00:57 37 C 50 L 16 02/09/18 00:30 50 L 15 193/113 H BP Pulse Ox 02/09/18 07:57 99 02/09/18 00:57 186/108 H 99 02/09/18 00:30 99 Intake & Output: Intake & Output 02/06/18 02/07/18 02/08/18 02/09/18 23:59 23:59 23:59 23:59 Intake Total 100 Output Total 250 Balance -150 - Objective General Appearance: positive: No acute distress, Other (Sleepy) Eyes Bilateral: positive: PERRL, EOMI ENT: positive: Dry mucous membranes Neck: positive: No JVD. negative: Stiff neck, Carotid bruit Respiratory: positive: Chest non-tender. negative: Wheezes, Rales, Rhonchi Cardiovascular: positive: Regular rate & rhythm. negative: Systolic murmur, Gallop/S4, Friction rub Abdomen: positive: No organomegaly, Nml bowel sounds, Tenderness (Diffuse and mild and generalized). negative: Guarding, Rebound Skin: positive: Warm, Dry Extremities: positive: Full ROM, No pedal edema Neurologic/Psychiatric: positive: Oriented x3, CN's nml (2-12), Motor nml - Lab Results Fish Bones: 02/09/18 05:27 02/09/18 05:27 Other Labs: Lab Results x24hrs 02/09/18 02/09/18 02/09/18 Range/Units 05:27 05:27 05:27 WBC 9.2 (4.8-10.8) x10^3/uL RBC 5.59 (4.70-6.10) 10^6/uL Hgb 15.1 (14.0-18.0) g/dL Hct 46.0 (42.0-52.0) % MCV 82.2 (80.0-94.0) fL MCH 27.0 (27.0-31.0) pg MCHC 32.8 (32.0-36.0) g/dL RDW 14.7 (12.0-15.0) % Plt Count 273 (130-450) 10^3/uL MPV 7.9 (7.4-11.4) fL Neut # (Auto) 7.6 H (1.5-6.6) 10^3/uL Lymph # (Auto) 1.2 L (1.5-3.5) 10^3/uL [place] # (Auto) 0.3 (0.0-1.0) 10^3/uL Eos # (Auto) 0.0 (0.0-0.7) 10^3/uL Baso # (Auto) 0.1 (0.0-0.1) 10^3/uL Absolute Nucleated RBC 0.01 x10^3/uL Nucleated RBC % 0.1 /100WBC Sodium 140 (135-145) mmol/L Potassium 4.1 (3.5-5.0) mmol/L Chloride 103 (101-111) mmol/L Carbon Dioxide 25 (21-32) mmol/L Anion Gap 12.0 (6-13) BUN 16 (6-20) mg/dL Creatinine 1.0 (0.6-1.2) mg/dL Estimated GFR (MDRD) 102 (>89) Glucose 101 H (70-100) mg/dL Lactic Acid 1.0 (0.5-2.2) mmol/L Calcium 9.7 (8.5-10.3) mg/dL Phosphorus 3.2 (2.5-4.6) mg/dL Magnesium 2.1 (1.7-2.8) mg/dL Total Bilirubin 1.1 H (0.2-1.0) mg/dL AST 31 (10-42) IU/L ALT 42 (10-60) IU/L Alkaline Phosphatase 75 (42-121) IU/L Total Protein 8.6 H (6.7-8.2) g/dL Albumin 5.3 (3.2-5.5) g/dL Globulin 3.3 (2.1-4.2) g/dL Albumin/Globulin Ratio 1.6 (1.0-2.2) ABX Reporting Has patient been on IV antibiotics over the past 48 hours?: No Assessment/Plan - Problem List (1) Intractable abdominal pain Impression: Patient has history of intractable abdominal pain of unknown etiology. Patient has been worked up with multiple CTs, MRCP and abdominal ultrasounds none of which has revealed a etiology of his pain. The patient has had pancreatitis in the past and may have chronic pancreatitis although his CT and MRCP does not reveal evidence of chronic pancreatitis. The patient does smoke marijuana daily. It is possible that the patient may have cyclic vomiting syndrome from excessive marijuana use or unspecified cyclic vomiting syndrome. The patient is in the process of being referred to the [facility] for further evaluation by gastroenterology for her to find etiology of his abdominal pain and intractable symptoms of nausea and vomiting. Currently the patient is being placed in observation as he has a flareup of his above problem. Recently the ER has decided to stop giving the patient narcotics in the ER and today he was only given IV tylenol and toradol. We will keep consistent and continue to do this in the hospital as the narcotics do not appear to help his pain. Plan: continue IV Tylenol and IV Toradol prn Continue IV fluids for hydration We will monitor pain. Reassess for discharge in a few hours. (2) Intractable nausea and vomiting Conclusion/Plan: The patient has unspecified abdominal pain with intractable nausea and vomiting. As stated above he has had extensive workup without any obvious diagnosis being reached. It is possible the patient may have cyclic vomiting syndrome especially given the number of hospitalizations for intractable nausea and vomiting. Plan: On IV Zofran, IM Phenergan and IV Compazine. He will also get IV Haldol and IV Ativan as needed for nausea and vomiting. He will be placed on IV reglan ATC for nausea. Typically the patient's symptoms do resolve within 24 hours and he will be monitored in observation until symptoms resolve. Reasses later today. Patient will be given IV fluids as he does appear to be dehydrated Qualifiers: Vomiting type: cyclical vomiting Qualified Code(s): G43.A1 - Cyclical vomiting, intractable (3) Sinus bradycardia Conclusion/Plan: The patient has sinus bradycardia which he has had in the past. He has been evaluated with an echocardiogram in April 2017 which showed mild concentric left ventricular hypertrophy but otherwise normal EF and no other dysfunction. The patient's bradycardia could have been due to the fact he received Haldol in the emergency department however he has had bradycardia before in the past. The patient does not appear symptomatic from his sinus bradycardia. Monitor and avoid any medications that could cause bradycardia. Pulse is 50-57. (4) HTN (hypertension) Conclusion/Plan: The patient persistently presents with hypertension with blood pressure in the 200s. The patient's hypertension could be secondary to his abdominal pain. It is unlikely to be the cause of his abdominal pain although it could potentially be the cause of his nausea and vomiting. The patient denies any symptoms of palpitations or diaphoresis when he is blood pressure does become elevated. On patient's previous hospitalization we did check metanephrines to rule out the possibility of pheochromocytoma and it appears that the patient's metanephrines were slightly elevated. Plan: Pain control Continue patient's home dose of amlodipine Monitor blood pressure Patient will need to follow-up as an outpatient for further workup for pheochromocytoma. The patient will need a referral to endocrinology. Needs CT of kidneys to look at adrenals. Qualifiers: Hypertension type: essential hypertension Qualified Code(s): I10 - Essential (primary) hypertension (5) Anxiety and depression Conclusion/Plan: Patient does have history of anxiety and depression and takes Zoloft at home. We will continue the patient's Zoloft once the dose is confirmed. There is the possibility that this could be a psychosomatic pain and nausea. We would need to rule out all other possible causes before coming to this conclusion. (6) Cannabis abuse Conclusion/Plan: The patient does smoke marijuana daily. I did have a discussion with the patient about the possibility of him having cannabinoid cyclic vomiting syndrome. I advised the patient to quit marijuana for longer duration of time to see if the patient's symptoms do resolve. The patient states that he has had theses issues with abdominal pain, nausea and vomiting since before he every started using marijuana. (7) Tobacco abuse Conclusion/Plan: Patient has history of tobacco abuse. He continues to smoke about half a pack a day. The patient was counseled on the risks of smoking. He was offered a nicotine patch.
[2018-02-09] MEDS: GI COCKTAIL 120 ML BOTTLE PO SCH ×3 (08:36→19:09)
[2018-02-09] MEDS: SUCRALFATE 1 GM/10 ML UDC PO SCH ×4 (08:36→20:55)
[2018-02-09] MEDS ORDERED: ENOXAPARIN 40 MG/0.4 ML SYRINGE SUBQ SCH (09:00)
[2018-02-09] MEDS ORDERED: amLODIPine 5 MG TABLET PO SCH (09:00)
[2018-02-09] MEDS ORDERED: POLYETHYLENE GLYCOL 3350 17 GM PACKET PO SCH (09:00)
[2018-02-09 18:35] LABS: MUDS CUTOFF CONCENTRATIONS CUTOFF CONC BELOW:
[2018-02-09 18:51] LABS: AMPHETAMINE SCREEN,URINE NEGATIVE (NEGATIVE); BENZODIAZEPINES SCREEN, URINE POSITIVE (NEGATIVE); COCAINE SCREEN URINE NEGATIVE (NEGATIVE); METHADONE SCREEN, URINE NEGATIVE (NEGATIVE); METHAMPHETAMINES SCREEN, URINE NEGATIVE (NEGATIVE); OPIATE SCREEN, URINE NEGATIVE (NEGATIVE); OXYCODONE SCREEN, URINE NEGATIVE (NEGATIVE); PROPOXYPHENE SCREEN, URINE NEGATIVE (NEGATIVE); TRICYCLIC ANTIDEPRESSANT,URINE NEGATIVE (NEGATIVE)
--- NOTE | 2018-02-09 21:13 | Discharge Plan ---
Discharge Plan Disposition: Home, Self Care Condition: Fair Prescriptions: Prochlorperazine Maleate [Compazine] 10 mg PO Q6HR PRN #60 tablet PRN Reason: Nausea / Vomiting Ondansetron HCl [Zofran] 8 mg PO Q8HR PRN #60 tablet PRN Reason: Nausea / Vomiting Diet: Regular Activity Restrictions: Activity as Tolerated Shower Restrictions: No Driving Restrictions: No Weight Bearing: Full Weight Instruction Topics: ED Nausea Vomiting Additional Instructions or Follow Up instructions: You presented to the emergency department with abdominal pain, nausea and vomiting. Your symptoms did not resolve with treatment in the emergency department alone therefore you are placed in observation and given further hydration and medications for pain and nausea. It appears that you are feeling much better now and were able to tolerate some clear liquids this evening without having any symptoms therefore you can now go home. I am prescribing you Zofran and compazine which he can grape picker at your pharmacy. These medication will help with any further nausea. I advised that you drink plenty of fluids to keep well-hydrated. You need to follow-up with your primary care physician and get referred down to [facility] for further evaluation for the cause of your abdominal pain and symptoms as we still do not have a diagnosis for why you are experiencing any symptoms. Also we found that some of your hormones are elevated in your blood stream and could be the reason your blood pressure gets so high and you experience the nausea and vomiting. You need to see an Performance Makeup Artist to have this further evaluated. Clear liquids only for 12-24 hours. Return if worse again. No Smoking: If you smoke, Please STOP! Call for help. Follow-up with: Kristin Hansen ARNP [Primary Care Provider] -
--- NOTE | 2018-02-09 21:39 | DISCHARGE SUMMARY ---
Discharge Summary Admit Date: 02/09/18 Discharge Date: 02/09/18 Code Status: Attempt Resuscitation Condition at Discharge: Fair Discharge Disposition: 01 Home, Self Care - DIAGNOSES Admission Diagnoses: 1. Intractable abdominal pain 2. Intractable nausea and vomiting 3. Sinus bradycardia 4. Hypertension 5. Anxiety and depression 6. Cannabis abuse 7. Tobacco abuse Discharge Diagnoses with Status of Each Condition: 1. Intractable abdominal pain: Stable 2. Intractable nausea and vomiting: Stable 3. Sinus bradycardia: Stable 4. Hypertension: Stable 5. Anxiety and depression: Stable 6. Cannabis abuse: Stable 7. Tobacco abuse: Stable - HPI History of Present Illness: Patient is a 36-year-old -[place] gentleman who has had intermittent left upper quadrant abdominal pain since approximately 2007. 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 Between then and now, he has relatively quiescent disease state up until 2014. He then had another episode of left upper quadrant abdominal pain for which he was admitted for pancreatitis. From 2014 till 2016 his disease state was quiescent. But between 2016 and now, he has been admitted 05/18/2015, 04/03/2017, 04/27/2017, 05/27/2017, 10/29/2017, 11/16/2017 and then again on 11/18/2017. In addition to our hospital he has been admitted twice to [facility] in the same period of time. All of these admissions have been for intractable nausea and vomiting with left upper quadrant abdominal pain. He has had lipase as high as 900 or so at [facility]. For us here his highest lipase has been 327. He has not drank since 2015. In addition to the admissions this gentleman has had 25 ER visits since July this year alone. Today would be his 26th visit. Again they are all for the same problem of intractable nausea and vomiting with left upper quadrant abdominal pain. Workup has had 6 CT scans of the abdomen, and MRCP. An ultrasound of the abdomen done here. An ultrasound of the abdomen done at [facility]. He has had a colonoscopy in 04/2017 and he has had an EGD in . None of these studies have delineated why this uncomfortable gentleman has an elevated amylase, nor has it delineated any anatomical abnormalities. He has had an intact biliary and pancreatic ductal system that appears grossly normal on MRCP. He has had no stones or thickened gallbladder on ultrasound or his abdominal CTs. He is being followed by nurse practitioner Kristin Hansen for his primary care provider. She last saw him on 11/09/2017 and he appears to be compliant with most of his visits. She is in the process of getting ready to refer him to the [facility]. He has already been seen by Dr. Miller at [facility] gastroenterology. Dr. Miller is the one that recommended the MRCP. Other than the etiology of this pancreatitis being alcohol induced, Dr. Miller's note does not include an extensive differential. He has still not had a chance to see GI. In 2016 this patient weighed close to 82 kg. With the his episodes of nausea and vomiting unable to eat, in spite of severe hunger, his weight has drifted down to 63.5 kg. 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 He states that he went to the bathroom and had a bowel movement. He states that after the bowel movement the pain became progressively worse. He states that he then began feeling nauseated and began vomiting. He states he then went to the shower and try to see if he would feel better after showering but this did not appear to improve his symptoms. He states that the pain, nausea and vomiting continued to worsen so he then came to the emergency department. He denies any fevers or chills. He denies any diarrhea. He does admit to continued marijuana use and tobacco use. He denies drinking any alcohol. He denies any sick contacts. The patient denies any headache, blurred vision, runny nose, sore throat, nasal congestion, difficulty swallowing, chest pain, cough, fever, chills, shortness of air, orthopnea, PND, increased lower extremity swelling, urinary urgency, urinary frequency, dysuria, joint pain, joint swelling, back pain, neck stiffness, skin changes, hair loss, polyuria, polydipsia or any focal neurologic deficits. On presentation to the emergency department the patient was afebrile, he was bradycardic which is chronic for him. The patient was very hypertensive with a blood pressure of 219/123 which often occurs when the patient is in severe pain and when he does present with the symptoms. The patient was otherwise not in any respiratory distress. The patient underwent routine lab work which showed no leukocytosis, and all his electrolytes were within normal limits. The patient's lipase was 89. The patient did not undergo any imaging given his previous history of multiple images without any obvious findings. The patient received IV fluid, Compazine, Zofran, Toradol, Haldol, Benadryl, Mylanta and IV Tylenol while he was in the emergency department and initially appeared to have some relief of symptoms. The patient however tried a p.o. challenge and failed. The patient again began vomiting and abdominal pain continued to worsen. Given the patient's continued symptoms it was decided that he would need an observation stay for symptoms to resolve. Patient was placed in observation. - HOSPITAL COURSE Hospital Course: Patient was placed in observation over the course of the night and received antiemetics, IV fluids, IV Tylenol and IV Toradol. The patient appeared to improve on the evening of 02/09/2018. The patient was started on clear liquids which she was able to tolerate well and felt well enough to be able to return home. The patient was no longer having any emesis or abdominal pain and his blood pressure was well controlled. The patient was discharged home in stable condition. The patient was given prescription for Zofran and Compazine. The patient was instructed to follow-up with his primary care physician and gastroenterology as scheduled next month. The patient also was advised to get a referral for endocrinology as he did have elevated metanephrines on previous lab work and needs further workup for pheochromocytoma given his severe hypertensive episodes. - ALLERGIES Allergies/Adverse Reactions: Allergies Allergy/AdvReac Type Severity Reaction Status Date / Time morphine Allergy Hives Verified 02/08/18 18:41 - MEDICATIONS Home Medications: Ambulatory Orders Medication Instructions Recorded Confirmed Amlodipine Besylate 10 mg PO DAILY 10/29/17 02/09/18 raNITIdine HCl [Ranitidine HCl] 300 mg PO DAILY 11/17/17 02/09/18 Ibuprofen 600 mg PO Q6HR PRN #30 tablet 11/19/17 02/09/18 Promethazine [Phenergan] 25 mg PO Q6H PRN #10 tab 12/10/17 02/09/18 Lidocaine Viscous 2% [Xylocaine 5 ml PO Q4H PRN #1 bottle 01/08/18 02/09/18 Viscous 2%] Omeprazole 40 mg PO QPM 02/09/18 02/09/18 Ondansetron HCl [Zofran] 8 mg PO Q8HR PRN #60 tablet 02/09/18 Prochlorperazine Maleate 10 mg PO Q6HR PRN #60 tablet 02/09/18 [Compazine] Promethazine HCl [Phenadoz] 25 mg RC Q4H PRN 02/09/18 02/09/18 Propranolol [Inderal] 5 mg PO BID 02/09/18 02/09/18 Venlafaxine HCl 37.5 mg PO BID 02/09/18 02/09/18 - PHYSICAL EXAM AT DISCHARGE General Appearance: positive: No acute distress, Alert Eyes Bilateral: positive: Normal inspection, PERRL, EOMI, No lid inflammation, Conjunctivae nml, No scleral icterus ENT: positive: ENT inspection nml, Pharynx nml, No signs of dehydration. negative: Purulent nasal drainage, Pharyngeal erythema, Oral lesions Neck: positive: Nml inspection, Thyroid nml, No JVD, Trachea midline. negative : Thyromegaly, Lymphadenopathy (R), Lymphadenopathy (L), Stiff neck, Carotid bruit, Tracheal deviation Respiratory: positive: Chest non-tender, No respiratory distress, Breath sounds nml. negative: Wheezes, Rales, Rhonchi Cardiovascular: positive: Regular rate & rhythm, No murmur, No gallop Peripheral Pulses: positive: 2+ Abdomen: positive: Non-tender, No organomegaly, Nml bowel sounds, No distention. negative: Guarding, Rebound Back: positive: Nml inspection. negative: CVA tenderness (R), CVA tenderness (L ) Skin: positive: Color nml, No rash, Warm. negative: Cyanosis, Diaphoresis, Pallor Extremities: positive: Non-tender, Full ROM, Nml appearance, No pedal edema Neurologic/Psychiatric: positive: Oriented x3, CN's nml (2-12), Motor nml, Sensation nml, Mood/affect nml - LABS Result Diagrams: 02/09/18 05:27 02/09/18 05:27 Other Lab Results: Laboratory Results WBC 9.2 x10^3/uL (4.8-10.8) 02/09/18 05:27 RBC 5.59 10^6/uL (4.70-6.10) 02/09/18 05:27 Hgb 15.1 g/dL (14.0-18.0) 02/09/18 05:27 Hct 46.0 % (42.0-52.0) 02/09/18 05:27 MCV 82.2 fL (80.0-94.0) 02/09/18 05:27 MCH 27.0 pg (27.0-31.0) 02/09/18 05:27 MCHC 32.8 g/dL (32.0-36.0) 02/09/18 05:27 RDW 14.7 % (12.0-15.0) 02/09/18 05:27 Plt Count 273 10^3/uL (130-450) 02/09/18 05:27 MPV 7.9 fL (7.4-11.4) 02/09/18 05:27 Neut # (Auto) 7.6 10^3/uL (1.5-6.6) H 02/09/18 05:27 Lymph # (Auto) 1.2 10^3/uL (1.5-3.5) L 02/09/18 05:27 [place] # (Auto) 0.3 10^3/uL (0.0-1.0) 02/09/18 05:27 Eos # (Auto) 0.0 10^3/uL (0.0-0.7) 02/09/18 05:27 Baso # (Auto) 0.1 10^3/uL (0.0-0.1) 02/09/18 05:27 Absolute Nucleated RBC 0.01 x10^3/uL 02/09/18 05:27 Nucleated RBC % 0.1 /100WBC 02/09/18 05:27 Sodium 140 mmol/L (135-145) 02/09/18 05:27 Potassium 4.1 mmol/L (3.5-5.0) 02/09/18 05:27 Chloride 103 mmol/L (101-111) 02/09/18 05:27 Carbon Dioxide 25 mmol/L (21-32) 02/09/18 05:27 Anion Gap 12.0 (6-13) 02/09/18 05:27 BUN 16 mg/dL (6-20) 02/09/18 05:27 Creatinine 1.0 mg/dL (0.6-1.2) 02/09/18 05:27 Estimated GFR (MDRD) 102 (>89) 02/09/18 05:27 Glucose 101 mg/dL (70-100) H 02/09/18 05:27 Lactic Acid 1.0 mmol/L (0.5-2.2) 02/09/18 05:27 Calcium 9.7 mg/dL (8.5-10.3) 02/09/18 05:27 Phosphorus 3.2 mg/dL (2.5-4.6) 02/09/18 05:27 Magnesium 2.1 mg/dL (1.7-2.8) 02/09/18 05:27 Total Bilirubin 1.1 mg/dL (0.2-1.0) H 02/09/18 05:27 AST 31 IU/L (10-42) 02/09/18 05:27 ALT 42 IU/L (10-60) 02/09/18 05:27 Alkaline Phosphatase 75 IU/L (42-121) 02/09/18 05:27 Total Protein 8.6 g/dL (6.7-8.2) H 02/09/18 05:27 Albumin 5.3 g/dL (3.2-5.5) 02/09/18 05:27 Globulin 3.3 g/dL (2.1-4.2) 02/09/18 05:27 Albumin/Globulin Ratio 1.6 (1.0-2.2) 02/09/18 05:27 Lipase 89 U/L (22-51) H 02/08/18 18:43 Urine Opiates Screen NEGATIVE (NEGATIVE) 02/09/18 18:00 Ur Oxycodone Screen NEGATIVE (NEGATIVE) 02/09/18 18:00 Urine Methadone Screen NEGATIVE (NEGATIVE) 02/09/18 18:00 Ur Propoxyphene Screen NEGATIVE (NEGATIVE) 02/09/18 18:00 Ur Barbiturates Screen NEGATIVE (NEGATIVE) 02/09/18 18:00 Ur Tricyclics Screen NEGATIVE (NEGATIVE) 02/09/18 18:00 Ur Phencyclidine Scrn NEGATIVE (NEGATIVE) 02/09/18 18:00 Ur Amphetamine Screen NEGATIVE (NEGATIVE) 02/09/18 18:00 U Methamphetamines Scrn NEGATIVE (NEGATIVE) 02/09/18 18:00 U Benzodiazepines Scrn POSITIVE (NEGATIVE) H 02/09/18 18:00 Urine Cocaine Screen NEGATIVE (NEGATIVE) 02/09/18 18:00 U Cannabinoids Screen POSITIVE (NEGATIVE) H 02/09/18 18:00 - FOLLOW UP Follow Up: Patient was discharged home with Zofran and Compazine for his nausea. He was instructed to continue clear liquid diet for the next 24-48 hours. The patient will follow up with his primary care physician and will need referral for endocrinology given his elevated metanephrines and hypertensive episodes. The patient is already scheduled to follow-up with gastroenterology in [place] next month. He was instructed to make sure to attend that appointment. - TIME SPENT Time Spent in Discharge (Minutes): 40
[2018-02-09 22:16] VITALS: BP 104/52
== END 2018-02-09 22:33 | disposition home or self-care (01) ==
LOC: EDUNIT# → ED 18:15 → SUPCPDRO 18:15 → MS2 23:59
PROVIDERS: ADMIT Internal Medicine; ATTEND Internal Medicine
DX: R10.9 Unspecified abdominal pain (principal); R11.2 Nausea with vomiting, unspecified; R00.1 Bradycardia, unspecified; I10 Essential (primary) hypertension; F12.10 Cannabis abuse, uncomplicated; F17.210 Nicotine dependence, cigarettes, uncomplicated; R79.89 Other specified abnormal findings of blood chemistry; F32.9 Major depressive disorder, single episode, unspecified; F41.9 Anxiety disorder, unspecified; Z87.19 Personal history of other diseases of the digestive system
CPT/HCPCS: 36415; 80053; 80306; 83605; 83690; 83735; 84100; 85025; 96365; 96366; 96375; 96376; 99284; A9270; G0378; J0131; J1200; J2060; J2765

== ENCOUNTER 2018-02-10 14:09 | Outpatient (CLI) | payer MEDICAID | END 2018-02-10 14:10 | disposition critical access hospital (66) | LOC: EMS 14:09 | PROVIDERS: ATTEND Surgery | DX: R10.12 Left upper quadrant pain (principal); R11.2 Nausea with vomiting, unspecified | CPT/HCPCS: A0425; A0427 ==

== ENCOUNTER 2018-02-10 14:31 | Emergency (ER) | payer MEDICAID ==
[2018-02-10] MEDS ORDERED: SODIUM CHLORIDE 0.9% 1,000 ML IV ONE ×2 (14:48→15:36)
[2018-02-10] MEDS ORDERED: PROMETHAZINE INJ 12.5 MG in SODIUM CHLORIDE 0.9% 50 ML IV STA (14:49)
[2018-02-10] MEDS ORDERED: fentaNYL 100 MCG/2 ML VIAL IVP STA (14:49)
[2018-02-10 15:03] LABS: BASOPHILS # (AUTO) 0.1 10^3/uL (0.0-0.1); BASOPHILS % (AUTO) 0.9 %; EOSINOPHILS # (AUTO) 0.2 10^3/uL (0.0-0.7); EOSINOPHILS % (AUTO) 2.7 %; HGB - HEMOGLOBIN 13.5 g/dL (14.0-18.0); LYMPHOCYTES # (AUTO) 1.5 10^3/uL (1.5-3.5); LYMPHOCYTES % (AUTO) 18.9 %; MEAN CORPUSCULAR HEMOGLOBIN 27.1 pg (27.0-31.0); MEAN CORPUSCULAR HGB CONC 32.8 g/dL (32.0-36.0); MEAN CORPUSCULAR VOLUME 82.6 fL (80.0-94.0); MEAN PLATELET VOLUME 7.2 fL (7.4-11.4); MONOCYTES # (AUTO) 0.6 10^3/uL (0.0-1.0); MONOCYTES % (AUTO) 7.3 %; NEUTROPHILS # (AUTO) 5.5 10^3/uL (1.5-6.6); NEUTROPHILS % (AUTO) 70.2 %; PLT - PLATELET COUNT 239 10^3/uL (130-450); RED CELL DISTRIBUTION WIDTH 14.9 % (12.0-15.0); WHITE BLOOD COUNT 7.9 x10^3/uL (4.8-10.8)
[2018-02-10 15:15] LABS: ALBUMIN 4.5 g/dL (3.2-5.5); ALBUMIN/GLOBULIN RATIO 1.6 (1.0-2.2); CALCIUM 9.4 mg/dL (8.5-10.3); CREATININE 1.2 mg/dL (0.6-1.2); TOTAL PROTEIN 7.3 g/dL (6.7-8.2)
--- NOTE | 2018-02-10 15:31 | ED Physician Documentation ---
PD HPI ABD PAIN - Stated complaint Stated Complaint: ADB PAIN - Chief complaint Chief Complaint: Abd Pain - History obtained from History obtained from: Patient - History of Present Illness Timing - onset: Today Timing - details: Still present Quality: Pain Location: LUQ Worsened by: Eating Associated symptoms: Nausea, Vomiting. No: Fever, Diarrhea, Dysuria Similar symptoms before: Diagnosis (History of similar symptoms in the past with pancreatitis.) Recently seen: Admitted (Hospitalized here 2 days ago with abdominal pain and intractable vomiting, and discharged last night.) - Additional information Additional information: The patient is a 37-year-old male with history of pancreatitis who presents with upper abdominal pain that has recurred this morning. He was hospitalized here the night before last with intractable pain and vomiting, and was discharged last night after improvement of his symptoms. He denies any alcohol for the past 2 years. He has been hospitalized here 7 times in the past year with similar symptoms, and has had numerous emergency department visits with abdominal pain and vomiting. He has undergone CT scanning was abdomen and pelvis at least 6 times in the past 2 years, and has been evaluated by ultrasound, MRCP, colonoscopy, and EGD. None of the studies has elucidated a specific etiology for his symptoms. Please see Dr. Barnes's note from yesterday for details of the study dates and results. Review of Systems Constitutional: denies: Fever Ears: denies: Tinnitus/ringing Nose: denies: Congestion Throat: denies: Sore throat Cardiac: denies: Chest pain / pressure Respiratory: denies: Dyspnea, Cough GI: reports: Abdominal Pain, Nausea, Vomiting. denies: Diarrhea : denies: Dysuria Skin: denies: Rash Musculoskeletal: reports: Back pain (Slight midback pain.) Neurologic: denies: Focal weakness, Numbness, Headache PD PAST MEDICAL HISTORY - Past Medical History Cardiovascular: Hypertension Respiratory: None Neuro: None Endocrine/Autoimmune: None GI: Pancreatitis : None HEENT: None Psych: None Musculoskeletal: None Derm: None - Past Surgical History Past Surgical History: Yes Ortho: Other - Present Medications Home Medications: Ambulatory Orders Medication Instructions Recorded Confirmed Amlodipine Besylate 10 mg PO DAILY 10/29/17 02/09/18 raNITIdine HCl [Ranitidine HCl] 300 mg PO DAILY 11/17/17 02/09/18 Ibuprofen 600 mg PO Q6HR PRN #30 tablet 11/19/17 02/09/18 Promethazine [Phenergan] 25 mg PO Q6H PRN #10 tab 12/10/17 02/09/18 Lidocaine Viscous 2% [Xylocaine 5 ml PO Q4H PRN #1 bottle 01/08/18 02/09/18 Viscous 2%] Omeprazole 40 mg PO QPM 02/09/18 02/09/18 Ondansetron HCl [Zofran] 8 mg PO Q8HR PRN #60 tablet 02/09/18 Prochlorperazine Maleate 10 mg PO Q6HR PRN #60 tablet 02/09/18 [Compazine] Promethazine HCl [Phenadoz] 25 mg RC Q4H PRN 02/09/18 02/09/18 Propranolol [Inderal] 5 mg PO BID 02/09/18 02/09/18 Venlafaxine HCl 37.5 mg PO BID 02/09/18 02/09/18 - Allergies Allergies/Adverse Reactions: Allergies Allergy/AdvReac Type Severity Reaction Status Date / Time morphine Allergy Hives Verified 02/10/18 14:40 - Social History Does the pt smoke?: Yes Smoking Status: Current every day smoker Does the pt drink ETOH?: No Does the pt have substance abuse?: Yes - Immunizations Immunizations are current?: No - POLST Patient has POLST: No POLST Status: Full Code PD ED PE NORMAL - Vitals Vital signs reviewed: Yes (borderline hypertension) - General General: Alert and oriented X 3, Well developed/nourished - HEENT HEENT: Atraumatic, Moist mucous membranes, Pharynx benign - Neck Neck: Supple, no meningeal sign, No adenopathy, No JVD - Cardiac Cardiac: RRR, No murmur - Respiratory Respiratory: No respiratory distress, Clear bilaterally - Abdomen Abdomen: Normal bowel sounds, Non distended, No organomegaly, Other (Mild tenderness to palpation across the upper abdomen, with voluntary guarding present, without rebound.) - Back Back: No CVA TTP - Derm Derm: No rash - Extremities Extremities: No edema, No calf tenderness / cord - Neuro Neuro: Alert and oriented X 3, No motor deficit, Normal speech Results - Vitals Vitals: Vital Signs - 24 hr 02/10/18 02/10/18 02/10/18 14:37 15:06 18:12 Temperature 36.0 C L Heart Rate 67 54 L 54 L Respiratory 16 12 16 Rate Blood Pressure 140/80 H 107/69 103/60 O2 Saturation 96 97 100 Oxygen O2 Source Room air - Labs Labs: Laboratory Tests 02/10/18 02/10/18 15:00 15:00 WBC 7.9 RBC 5.00 Hgb 13.5 L Hct 41.2 L MCV 82.6 MCH 27.1 MCHC 32.8 RDW 14.9 Plt Count 239 MPV 7.2 L Neut # (Auto) 5.5 Lymph # (Auto) 1.5 Levy # (Auto) 0.6 Eos # (Auto) 0.2 Baso # (Auto) 0.1 Absolute Nucleated RBC 0.00 Nucleated RBC % 0.0 Sodium 136 Potassium 3.5 Chloride 102 Carbon Dioxide 26 Anion Gap 8.0 BUN 24 H Creatinine 1.2 Estimated GFR (MDRD) 83 L Glucose 103 H Calcium 9.4 Total Bilirubin 1.0 AST 42 ALT 42 Alkaline Phosphatase 61 Total Protein 7.3 Albumin 4.5 Globulin 2.8 Albumin/Globulin Ratio 1.6 Lipase 38 PD MEDICAL DECISION MAKING - ED course Complexity details: reviewed old records, reviewed results, re-evaluated patient , considered differential, d/w patient ED course: The patient's presentation is significant for recurrent bout of abdominal pain with vomiting, consistent with cyclic vomiting syndrome. While pancreatitis flare is a consideration, his lipase is normal. There is no clinical evidence to suggest cholecystitis, bowel obstruction, or acute surgical abdomen. Treatment in the emergency department included administration of normal saline 2 L IV, Phenergan 12.5 mg IV, and fentanyl 50 mcg IV. Following this treatment the patient felt subjectively much improved, and repeat examination reveals a benign abdomen. He demonstrated ability to drink water without recurrent symptoms. He was discharged from the hospital yesterday with prescriptions for antiemetics, so does not need further prescriptions at this time. I discussed with him potentially worrisome signs or symptoms that should prompt reevaluation in the emergency department. - Sepsis Event Vital Signs: Vital Signs - 24 hr 02/10/18 02/10/18 02/10/18 14:37 15:06 18:12 Temperature 36.0 C L Heart Rate 67 54 L 54 L Respiratory 16 12 16 Rate Blood Pressure 140/80 H 107/69 103/60 O2 Saturation 96 97 100 Oxygen O2 Source Room air Departure - Departure Disposition: Home, Self Care Clinical Impression: Abdominal pain Qualifiers: Abdominal location: upper abdomen, unspecified Qualified Code(s): R10.10 - Upper abdominal pain, unspecified Cyclical vomiting Qualifiers: Vomiting Intractability: non-intractable Nausea presence: with nausea Qualified Code(s): G43.A0 - Cyclical vomiting, not intractable Condition: Stable Instructions: ED Abdominal Pain Unkn Cause Follow-Up: Kristin Hansen ARNP [Primary Care Provider] - Comments: Drink plenty of fluids. You can use antinausea medication as previously prescribed. Follow up with your primary physician within 1-2 weeks. Call to schedule an appointment. Return to the emergency department if you develop increasing abdominal pain persistent vomiting or otherwise worsening symptoms. Discharge Date/Time: 02/10/18 18:17
[2018-02-10 18:13] VITALS: BP 103/60
== END 2018-02-10 18:17 | disposition home or self-care (01) ==
LOC: EDUNIT# → ED 14:31
DX: R10.12 Left upper quadrant pain (principal); G43.A0 Cyclical vomiting, in migraine, not intractable; I10 Essential (primary) hypertension; F17.200 Nicotine dependence, unspecified, uncomplicated; Z87.19 Personal history of other diseases of the digestive system
CPT/HCPCS: 36415; 80053; 83690; 85025; 99283

== ENCOUNTER 2018-02-10 18:26 | Emergency (ER) | payer MEDICAID ==
[2018-02-10] MEDS ORDERED: SODIUM CHLORIDE 0.9% 1,000 ML IV ONE (19:32)
[2018-02-10] MEDS ORDERED: fentaNYL 100 MCG/2 ML VIAL IVP STA ×2 (19:33→21:40)
[2018-02-10] MEDS ORDERED: PROMETHAZINE INJ 25 MG in SODIUM CHLORIDE 0.9% 50 ML IV STA (19:33)
--- NOTE | 2018-02-10 19:36 | ED Physician Documentation ---
PD HPI ABD PAIN - Stated complaint Stated Complaint: AB PX - Chief complaint Chief Complaint: Abd Pain - History obtained from History obtained from: Patient - History of Present Illness Timing - onset: Today (37-year-old gentleman with chronic recurrent upper abdominal pain, has had elevated lipases in the past and has had alcohol abuse in the past but quit drinking quite some time ago. He does smoke marijuana daily. He was just here earlier in the day, his labs were unremarkable. He was treated with fentanyl and Phenergan with relief of his symptoms but basically on his way out of the hospital the symptoms recurred and now he is vomiting and severe abdominal pain again. It is similar prior episodes. He has had multiple negative workups otherwise including CT scans MRCP's and upper endoscopies.) Review of Systems Constitutional: denies: Fever, Chills, Myalgias GI: reports: Abdominal Pain, Nausea, Vomiting. denies: Constipation, Diarrhea : denies: Dysuria, Frequency PD PAST MEDICAL HISTORY - Past Medical History Cardiovascular: Hypertension Respiratory: None Neuro: None Endocrine/Autoimmune: None GI: Pancreatitis : None HEENT: None Psych: None Musculoskeletal: None Derm: None - Past Surgical History Past Surgical History: Yes Ortho: Other - Present Medications Home Medications: Ambulatory Orders Medication Instructions Recorded Confirmed Amlodipine Besylate 10 mg PO DAILY 10/29/17 02/09/18 raNITIdine HCl [Ranitidine HCl] 300 mg PO DAILY 11/17/17 02/09/18 Ibuprofen 600 mg PO Q6HR PRN #30 tablet 11/19/17 02/09/18 Promethazine [Phenergan] 25 mg PO Q6H PRN #10 tab 12/10/17 02/09/18 Lidocaine Viscous 2% [Xylocaine 5 ml PO Q4H PRN #1 bottle 01/08/18 02/09/18 Viscous 2%] Omeprazole 40 mg PO QPM 02/09/18 02/09/18 Ondansetron HCl [Zofran] 8 mg PO Q8HR PRN #60 tablet 02/09/18 Prochlorperazine Maleate 10 mg PO Q6HR PRN #60 tablet 02/09/18 [Compazine] Promethazine HCl [Phenadoz] 25 mg RC Q4H PRN 02/09/18 02/09/18 Propranolol [Inderal] 5 mg PO BID 02/09/18 02/09/18 Venlafaxine HCl 37.5 mg PO BID 02/09/18 02/09/18 Promethazine Supp [Phenergan Supp] 25 mg DC Q6H PRN #20 supp 02/10/18 - Allergies Allergies/Adverse Reactions: Allergies Allergy/AdvReac Type Severity Reaction Status Date / Time morphine Allergy Hives Verified 02/10/18 18:38 - Social History Does the pt smoke?: Yes Smoking Status: Current every day smoker Does the pt drink ETOH?: No Does the pt have substance abuse?: Yes - Immunizations Immunizations are current?: No - POLST Patient has POLST: No POLST Status: Full Code PD ED PE NORMAL - Vitals Vital signs reviewed: Yes - General General: Alert and oriented X 3, No acute distress - Abdomen Abdomen: Normal bowel sounds, Soft, Non tender - Neuro Neuro: Alert and oriented X 3, Normal speech - Psych Psych: Normal mood, Normal affect Results - Vitals Vitals: Vital Signs - 24 hr 02/10/18 02/10/18 02/10/18 18:34 20:19 21:10 Temperature 37.1 C Heart Rate 63 70 61 Respiratory 16 17 17 Rate Blood Pressure 226/117 H 214/127 H 228/122 H O2 Saturation 100 99 99 Oxygen O2 Source Room air PD MEDICAL DECISION MAKING - ED course ED course: 37-year-old gentleman with chronic recurrent abdominal pain of unclear etiology with vomiting. Negative workups in the past as have been well-documented on previous notes. There is a concern for cannabinoid hyperemesis, however he says he only uses about twice a week which is somewhat atypical for this diagnosis. Regardless labs were not done on this visit as he had had labs earlier in the day which were basically unremarkable. He remained nontender through repeat evaluations was treated stepwise with medications. Given the recurrence of his symptoms and frequent recent emergency department visits he was offered to stay in observation which he declined even though the mom wanted me him to stay but she understands that he is an adult and can make his own decisions. - Sepsis Event Vital Signs: Vital Signs - 24 hr 02/10/18 02/10/18 02/10/18 18:34 20:19 21:10 Temperature 37.1 C Heart Rate 63 70 61 Respiratory 16 17 17 Rate Blood Pressure 226/117 H 214/127 H 228/122 H O2 Saturation 100 99 99 Oxygen O2 Source Room air Departure - Departure Disposition: 01 Home, Self Care Clinical Impression: Abdominal pain Qualifiers: Abdominal location: epigastric Qualified Code(s): R10.13 - Epigastric pain Vomiting Qualifiers: Vomiting type: cyclical vomiting Vomiting Intractability: intractable Nausea presence: with nausea Qualified Code(s): G43.A1 - Cyclical vomiting, intractable Condition: Good Record reviewed to determine appropriate education?: Yes Instructions: ED Abdominal Pain Unkn Cause Prescriptions: Promethazine Supp [Phenergan Supp] 25 mg DC Q6H PRN #20 supp PRN Reason: Nausea / Vomiting Comments: Call your doctor to arrange a follow-up appointment, make the next available appointment. In the interim, return anytime if worse or if new symptoms develop. Your blood pressure was elevated today on check into the emergency department. This does not mean that you have hypertension, it is a common phenomenon to come to the emergency department and have elevated blood pressure. I recommend that you see your primary care physician within the week to have it rechecked when you are feeling better.
[2018-02-10] MEDS ORDERED: ONDANSETRON 4 MG/2 ML VIAL ONE (21:16)
[2018-02-10] MEDS ORDERED: ONDANSETRON 4 MG/2 ML VIAL IVP STA (21:16)
[2018-02-10] MEDS ORDERED: HALOPERIDOL 5 MG/ML VIAL IVP ONE (21:39)
[2018-02-10 22:27] VITALS: BP 101/59
== END 2018-02-10 22:27 | disposition home or self-care (01) ==
LOC: ED 18:26
DX: R10.13 Epigastric pain (principal); R10.12 Left upper quadrant pain; G43.A1 Cyclical vomiting, in migraine, intractable; I10 Essential (primary) hypertension; F17.200 Nicotine dependence, unspecified, uncomplicated; Z87.19 Personal history of other diseases of the digestive system
CPT/HCPCS: 36415; 80053; 83690; 85025; 96361; 96365; 96366; 96375; 96376; 99283; 99284; J7040

== ENCOUNTER 2018-02-11 08:40 | Outpatient (CLI) | payer MEDICAID | END 2018-02-11 08:41 | disposition critical access hospital (66) | LOC: EMS 08:40 | PROVIDERS: ATTEND Surgery | DX: R10.32 Left lower quadrant pain (principal) | CPT/HCPCS: A0425; A0429; A0999 ==

== ENCOUNTER 2018-02-11 08:59 | Emergency (ER) | payer MEDICAID ==
[2018-02-11] MEDS ORDERED: diphenhydrAMINE INJ 50 MG/ML VIAL IVP STA (09:04)
[2018-02-11] MEDS ORDERED: SODIUM CHLORIDE 0.9% 1,000 ML IV ONE (09:04)
[2018-02-11] MEDS ORDERED: HALOPERIDOL 5 MG/ML VIAL IVP STA (09:04)
--- NOTE | 2018-02-11 09:18 | ED Physician Documentation ---
History of Present Illness - Stated complaint Stated Complaint: ABD PX - Chief complaint Chief Complaint: Abd Pain - History obtained from History obtained from: Patient - History of Present Illness Timing: How many days ago (several) Pain level max: 8 Pain level now: 8 Improved by: phenergan Worsened by: nothing - Additonal information Additional information: Patient is a 37 year old male with chronic abd pain, vomiting. Seen here twice yesterday for same. Recently placed in observation for same. States zofran did not help but rectal phenergan did. States last used marijuana a few days ago. States that showers normally help his symptoms. denies any etoh. Review of Systems Ten Systems: 10 systems reviewed and negative Constitutional: denies: Fever, Chills Ears: denies: Ear pain Nose: denies: Rhinorrhea / runny nose, Congestion Throat: denies: Sore throat Cardiac: denies: Chest pain / pressure Respiratory: denies: Cough GI: reports: Abdominal Pain, Nausea, Vomiting, Diarrhea Skin: denies: Rash Musculoskeletal: denies: Neck pain, Back pain Neurologic: denies: Headache PD PAST MEDICAL HISTORY - Past Medical History Cardiovascular: Hypertension Respiratory: None Neuro: None Endocrine/Autoimmune: None GI: Pancreatitis : None HEENT: None Psych: Depression, Anxiety, Other Musculoskeletal: None Derm: None - Past Surgical History Past Surgical History: Yes Ortho: Other - Present Medications Home Medications: Ambulatory Orders Medication Instructions Recorded Confirmed Amlodipine Besylate 10 mg PO DAILY 10/29/17 02/09/18 raNITIdine HCl [Ranitidine HCl] 300 mg PO DAILY 11/17/17 02/09/18 Ibuprofen 600 mg PO Q6HR PRN #30 tablet 11/19/17 02/09/18 Promethazine [Phenergan] 25 mg PO Q6H PRN #10 tab 12/10/17 02/09/18 Lidocaine Viscous 2% [Xylocaine 5 ml PO Q4H PRN #1 bottle 01/08/18 02/09/18 Viscous 2%] Omeprazole 40 mg PO QPM 02/09/18 02/09/18 Ondansetron HCl [Zofran] 8 mg PO Q8HR PRN #60 tablet 02/09/18 Prochlorperazine Maleate 10 mg PO Q6HR PRN #60 tablet 02/09/18 [Compazine] Promethazine HCl [Phenadoz] 25 mg RC Q4H PRN 02/09/18 02/09/18 Propranolol [Inderal] 5 mg PO BID 02/09/18 02/09/18 Venlafaxine HCl 37.5 mg PO BID 02/09/18 02/09/18 Promethazine Supp [Phenergan Supp] 25 mg TN Q6H PRN #20 supp 02/10/18 - Allergies Allergies/Adverse Reactions: Allergies Allergy/AdvReac Type Severity Reaction Status Date / Time morphine Allergy Hives Verified 02/11/18 09:03 - Social History Does the pt smoke?: Yes Smoking Status: Current every day smoker Does the pt drink ETOH?: No Does the pt have substance abuse?: Yes Substance Use and Type: Marijuana - Immunizations Immunizations are current?: No - POLST Patient has POLST: No POLST Status: Full Code PD ED PE NORMAL - Vitals Vital signs reviewed: Yes - General General: Alert and oriented X 3 - HEENT HEENT: Moist mucous membranes - Neck Neck: Supple, no meningeal sign - Cardiac Cardiac: RRR - Respiratory Respiratory: No respiratory distress, Clear bilaterally - Abdomen Abdomen: Soft, Non distended, Other (TTP L sided, no peritoneal signs. ) - Derm Derm: Warm and dry - Neuro Neuro: Alert and oriented X 3 - Psych Psych: Normal mood, Normal affect Results - Vitals Vitals: Vital Signs - 24 hr 02/11/18 02/11/18 02/11/18 09:05 11:59 12:56 Temperature 36.6 C 37.6 C H 37.3 C Heart Rate 64 83 61 Respiratory 16 20 14 Rate Blood Pressure 104/72 174/105 H 117/74 O2 Saturation 98 98 100 Oxygen O2 Source Room air - Labs Labs: Laboratory Tests 02/11/18 02/11/18 09:12 09:12 WBC 8.1 RBC 5.29 Hgb 14.2 Hct 43.2 MCV 81.6 MCH 26.9 L MCHC 33.0 RDW 14.5 Plt Count 261 MPV 7.5 Neut # (Auto) 5.8 Lymph # (Auto) 1.4 L Harrison # (Auto) 0.7 Eos # (Auto) 0.0 Baso # (Auto) 0.1 Absolute Nucleated RBC 0.00 Nucleated RBC % 0.0 Sodium 137 Potassium 3.2 L Chloride 102 Carbon Dioxide 26 Anion Gap 9.0 BUN 13 Creatinine 0.9 Estimated GFR (MDRD) 115 Glucose 115 H Calcium 9.1 Total Bilirubin 1.2 H AST 32 ALT 38 Alkaline Phosphatase 66 Total Protein 7.2 Albumin 4.1 Globulin 3.1 Albumin/Globulin Ratio 1.3 Lipase 57 H PD MEDICAL DECISION MAKING - ED course Complexity details: reviewed results, re-evaluated patient, considered differential, d/w patient ED course: Patient is a 37-year-old male who presents to the emergency department with abdominal pain today. Possible cannabinoid-induced hyperemesis? Nausea and vomiting are improved prior to arrival with Phenergan and then resolved with haloperidol in the emergency department. He did have a slight burning sensation in his stomach which resolved with a GI cocktail. Tolerating p.o. without difficulty. Normal laboratory testing on prior visits. Will not repeat again today. Patient would like to go home at this time. He does not want to stay in the hospital even for observation. Patient counseled regarding signs and symptoms for which I believe and urgent re-evaluation would be necessary. Patient with good understanding of and agreement to plan and is comfortable going home at this time This document was made in part using voice recognition software. While efforts are made to proofread this document, sound alike and grammatical errors may occur. Abdomen is soft, nontender nondistended on serial exam. - Sepsis Event Vital Signs: Vital Signs - 24 hr 02/11/18 02/11/18 02/11/18 09:05 11:59 12:56 Temperature 36.6 C 37.6 C H 37.3 C Heart Rate 64 83 61 Respiratory 16 20 14 Rate Blood Pressure 104/72 174/105 H 117/74 O2 Saturation 98 98 100 Oxygen O2 Source Room air Departure - Departure Disposition: 01 Home, Self Care Clinical Impression: Abdominal pain Qualifiers: Abdominal location: generalized Qualified Code(s): R10.84 - Generalized abdominal pain Condition: Good Instructions: ED Abdominal Pain Unkn Cause Follow-Up: Kristin Hansen ARNP [Primary Care Provider] - Within 1 week Comments: Return if you worsen. Use your medications as prescribed at home Discharge Date/Time: 02/11/18 12:57
[2018-02-11 09:21] LABS: BASOPHILS # (AUTO) 0.1 10^3/uL (0.0-0.1); BASOPHILS % (AUTO) 0.7 %; EOSINOPHILS % (AUTO) 0.3 %; HGB - HEMOGLOBIN 14.2 g/dL (14.0-18.0); LYMPHOCYTES # (AUTO) 1.4 10^3/uL (1.5-3.5); LYMPHOCYTES % (AUTO) 17.5 %; MEAN CORPUSCULAR HEMOGLOBIN 26.9 pg (27.0-31.0); MEAN CORPUSCULAR VOLUME 81.6 fL (80.0-94.0); MEAN PLATELET VOLUME 7.5 fL (7.4-11.4); MONOCYTES # (AUTO) 0.7 10^3/uL (0.0-1.0); MONOCYTES % (AUTO) 8.9 %; NEUTROPHILS # (AUTO) 5.8 10^3/uL (1.5-6.6); NEUTROPHILS % (AUTO) 72.6 %; PLT - PLATELET COUNT 261 10^3/uL (130-450); RED BLOOD COUNT 5.29 10^6/uL (4.70-6.10); RED CELL DISTRIBUTION WIDTH 14.5 % (12.0-15.0); WHITE BLOOD COUNT 8.1 x10^3/uL (4.8-10.8)
[2018-02-11 09:34] LABS: ALBUMIN 4.1 g/dL (3.2-5.5); ALBUMIN/GLOBULIN RATIO 1.3 (1.0-2.2); BILIRUBIN,TOTAL 1.2 mg/dL (0.2-1.0); CALCIUM 9.1 mg/dL (8.5-10.3); CREATININE 0.9 mg/dL (0.6-1.2); TOTAL PROTEIN 7.2 g/dL (6.7-8.2)
[2018-02-11] MEDS ORDERED: KETOROLAC 60 MG/2 ML VIAL IVP STA (11:01)
[2018-02-11] MEDS ORDERED: MAG HYDROX/AL HYDROX/SIMETH 30 ML UDC PO STA (11:02)
[2018-02-11] MEDS ORDERED: PHENobarb/HYOSCY/ATROPINE/SCOP 5 ML UDC PO STA (11:02)
[2018-02-11] MEDS ORDERED: SUCRALFATE 1 GM/10 ML UDC PO STA (11:02)
[2018-02-11 12:57] VITALS: BP 117/74
== END 2018-02-11 12:57 | disposition home or self-care (01) ==
LOC: ED 08:59
DX: R10.84 Generalized abdominal pain (principal); G89.29 Other chronic pain; I10 Essential (primary) hypertension; F17.200 Nicotine dependence, unspecified, uncomplicated
CPT/HCPCS: 36415; 80053; 83690; 85025; 96361; 96374; 99283; A9270; J1200

== ENCOUNTER 2018-02-12 20:48 | Outpatient (CLI) | payer MEDICAID | END 2018-02-12 20:49 | disposition critical access hospital (66) | LOC: EMS 20:48 | PROVIDERS: ATTEND Surgery | DX: R10.9 Unspecified abdominal pain (principal); R11.2 Nausea with vomiting, unspecified; R53.1 Weakness | CPT/HCPCS: A0425; A0429; A0999 ==

== ENCOUNTER 2018-02-12 21:05 | Observation (INO) | payer MEDICAID ==
[2018-02-12] MEDS ORDERED: SODIUM CHLORIDE 0.9% 1,000 ML IV ONE ×2 (21:10→22:16)
[2018-02-12] MEDS ORDERED: PROMETHAZINE INJ 12.5 MG in SODIUM CHLORIDE 0.9% 50 ML IV STA (21:10)
[2018-02-12] MEDS ORDERED: fentaNYL 100 MCG/2 ML VIAL IVP STA ×2 (21:11→23:25)
[2018-02-12 21:37] LABS: BASOPHILS # (AUTO) 0.1 10^3/uL (0.0-0.1); BASOPHILS % (AUTO) 1.2 %; EOSINOPHILS # (AUTO) 0.3 10^3/uL (0.0-0.7); EOSINOPHILS % (AUTO) 4.3 %; LYMPHOCYTES % (AUTO) 50.6 %; MEAN CORPUSCULAR HEMOGLOBIN 27.9 pg (27.0-31.0); MEAN CORPUSCULAR HGB CONC 33.8 g/dL (32.0-36.0); MEAN CORPUSCULAR VOLUME 82.6 fL (80.0-94.0); MEAN PLATELET VOLUME 7.5 fL (7.4-11.4); MONOCYTES # (AUTO) 0.7 10^3/uL (0.0-1.0); MONOCYTES % (AUTO) 8.3 %; NEUTROPHILS # (AUTO) 2.8 10^3/uL (1.5-6.6); NEUTROPHILS % (AUTO) 35.6 %; PLT - PLATELET COUNT 271 10^3/uL (130-450); RED BLOOD COUNT 5.03 10^6/uL (4.70-6.10); RED CELL DISTRIBUTION WIDTH 14.2 % (12.0-15.0); WHITE BLOOD COUNT 7.9 x10^3/uL (4.8-10.8)
[2018-02-12 21:44] LABS: ALBUMIN/GLOBULIN RATIO 1.9 (1.0-2.2); BILIRUBIN,TOTAL 0.6 mg/dL (0.2-1.0); CALCIUM 9.6 mg/dL (8.5-10.3); TOTAL PROTEIN 7.6 g/dL (6.7-8.2)
[2018-02-12] MEDS ORDERED: HALOPERIDOL 5 MG/ML VIAL IVP ONE (22:15)
[2018-02-12 22:57] LABS: BILIRUBIN,URINE NEGATIVE (NEGATIVE); GLUCOSE, URINE (UA) NEGATIVE (NEGATIVE); KETONES,URINE (UA) NEGATIVE (NEGATIVE); LEUKOCYTE ESTERASE, URINE NEGATIVE (NEGATIVE); NITRITE,URINE NEGATIVE (NEGATIVE); OCCULT BLOOD,URINE NEGATIVE (NEGATIVE); PH,URINE 6.5 PH (5.0-7.5); PROTEIN,URINE NEGATIVE (NEGATIVE); UROBILINOGEN,URINE 0.2 (NORMAL) E.U./dL (NORMAL)
[2018-02-12 22:59] LABS: CLARITY,URINE CLEAR (CLEAR)
--- NOTE | 2018-02-13 02:56 | ED Physician Documentation ---
PD HPI ABD PAIN - Stated complaint Stated Complaint: ABD PX/N/V - Chief complaint Chief Complaint: Abd Pain - History obtained from History obtained from: Patient - History of Present Illness Timing - onset: How many hours ago (4) Timing - details: Still present Quality: Pain Location: Epigastric, LUQ Worsened by: Eating Associated symptoms: Nausea, Vomiting. 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 This episode started after he tried eating soup. He has had ongoing vomiting since the pain started. He denies fever, diarrhea, or dysuria. He is well-known to us in the emergency department from numerous visits, and this is his fifth similar presentation in the past 4 days. He has undergone extensive workup in the past including MRCP, upper endoscopy, without clear elucidation of the underlying etiology for his symptoms. Recent hospital note by Dr. Barnes outlines thoroughly his previous diagnostic workups. Review of Systems Constitutional: denies: Fever Nose: denies: Congestion Throat: denies: Sore throat Cardiac: denies: Chest pain / pressure Respiratory: denies: Dyspnea, Cough GI: reports: Abdominal Pain, Nausea, Vomiting. denies: Diarrhea : denies: Dysuria Skin: denies: Rash Musculoskeletal: denies: Back pain Neurologic: denies: Headache PD PAST MEDICAL HISTORY - Past Medical History Past Medical History: Yes Cardiovascular: Hypertension Respiratory: None Neuro: None Endocrine/Autoimmune: None GI: Pancreatitis : None HEENT: None Psych: Depression, Anxiety, Other Musculoskeletal: None Derm: None - Past Surgical History Past Surgical History: Yes Ortho: Other - Present Medications Home Medications: Ambulatory Orders Medication Instructions Recorded Confirmed Amlodipine Besylate 10 mg PO DAILY 10/29/17 02/09/18 raNITIdine HCl [Ranitidine HCl] 300 mg PO DAILY 11/17/17 02/09/18 Ibuprofen 600 mg PO Q6HR PRN #30 tablet 11/19/17 02/09/18 Promethazine [Phenergan] 25 mg PO Q6H PRN #10 tab 12/10/17 02/09/18 Lidocaine Viscous 2% [Xylocaine 5 ml PO Q4H PRN #1 bottle 01/08/18 02/09/18 Viscous 2%] Omeprazole 40 mg PO QPM 02/09/18 02/09/18 Ondansetron HCl [Zofran] 8 mg PO Q8HR PRN #60 tablet 02/09/18 Prochlorperazine Maleate 10 mg PO Q6HR PRN #60 tablet 02/09/18 [Compazine] Promethazine HCl [Phenadoz] 25 mg RC Q4H PRN 02/09/18 02/09/18 Propranolol [Inderal] 5 mg PO BID 02/09/18 02/09/18 Venlafaxine HCl 37.5 mg PO BID 02/09/18 02/09/18 Promethazine Supp [Phenergan Supp] 25 mg DE Q6H PRN #20 supp 02/10/18 - Allergies Allergies/Adverse Reactions: Allergies Allergy/AdvReac Type Severity Reaction Status Date / Time morphine Allergy Hives Verified 02/11/18 09:03 - Social History Does the pt smoke?: Yes Smoking Status: Current every day smoker Does the pt drink ETOH?: No Does the pt have substance abuse?: Yes Substance Use and Type: Marijuana - Immunizations Immunizations are current?: No - POLST Patient has POLST: No POLST Status: Full Code PD ED PE NORMAL - Vitals Vital signs reviewed: Yes (Hypertensive) - General General: Alert and oriented X 3, Well developed/nourished - HEENT HEENT: Atraumatic, Moist mucous membranes, Pharynx benign - Neck Neck: Supple, no meningeal sign, No adenopathy - Cardiac Cardiac: RRR, No murmur - Respiratory Respiratory: No respiratory distress, Clear bilaterally - Abdomen Abdomen: Soft, Non distended, No organomegaly, Other (Mild tenderness palpation in the left upper quadrant and epigastric region, without rebound or guarding.) - Back Back: No CVA TTP - Derm Derm: No rash - Extremities Extremities: No edema, No calf tenderness / cord - Neuro Neuro: Alert and oriented X 3, Normal speech Results - Vitals Vitals: Vital Signs - 24 hr 02/12/18 02/13/18 02/13/18 21:07 00:24 02:04 Temperature 37.2 C Heart Rate 81 72 71 Respiratory 18 18 16 Rate Blood Pressure 208/120 H 187/123 H 172/112 H O2 Saturation 97 98 98 02/13/18 03:07 Temperature Heart Rate Respiratory Rate Blood Pressure 185/100 H O2 Saturation Oxygen O2 Source Room air - Labs Labs: Laboratory Tests 02/12/18 02/12/18 02/12/18 21:28 21:28 22:50 WBC 7.9 RBC 5.03 Hgb 14.0 Hct 41.5 L MCV 82.6 MCH 27.9 MCHC 33.8 RDW 14.2 Plt Count 271 MPV 7.5 Neut # (Auto) 2.8 Lymph # (Auto) 4.0 H [place] # (Auto) 0.7 Eos # (Auto) 0.3 Baso # (Auto) 0.1 Absolute Nucleated RBC 0.00 Nucleated RBC % 0.0 Sodium 136 Potassium 3.3 L Chloride 100 L Carbon Dioxide 27 Anion Gap 9.0 BUN 14 Creatinine 1.0 Estimated GFR (MDRD) 102 Glucose 113 H Calcium 9.6 Total Bilirubin 0.6 AST 29 ALT 37 Alkaline Phosphatase 70 Total Protein 7.6 Albumin 5.0 Globulin 2.6 Albumin/Globulin Ratio 1.9 Lipase 49 Urine Color YELLOW Urine Clarity CLEAR Urine pH 6.5 Ur Specific [place] 1.010 Urine Protein NEGATIVE Urine Glucose (UA) NEGATIVE Urine Ketones NEGATIVE Urine Occult Blood NEGATIVE Urine Nitrite NEGATIVE Urine Bilirubin NEGATIVE Urine Urobilinogen 0.2 (NORMAL) Ur Leukocyte Esterase NEGATIVE Ur Microscopic Review NOT INDICATED Urine Culture Comments NOT INDICATED PD MEDICAL DECISION MAKING - ED course Complexity details: reviewed old records, reviewed results, re-evaluated patient , considered differential, d/w patient, d/w area development consultant ED course: The patient presents with recurrent abdominal pain and vomiting that is similar to previous episodes. The etiology of his symptoms is uncertain despite previous diagnostic workups. His lipase is normal, as is his white count. Treatment in the emergency department included administration of normal saline IV, Phenergan 12.5 mg IV, fentanyl 50 mcg IV 3, Zofran 4 mg IV, and Haldol 1 mg IV. Despite the above treatment he continues to complain of abdominal pain and nausea. Normally he prefers going home rather than coming into the hospital for further treatment. However tonight he does not feel he is able to be discharged. I discussed his condition with Dr. Barnes who accepts him for further evaluation and treatment. - Sepsis Event Vital Signs: Vital Signs - 24 hr 02/12/18 02/13/18 02/13/18 21:07 00:24 02:04 Temperature 37.2 C Heart Rate 81 72 71 Respiratory 18 18 16 Rate Blood Pressure 208/120 H 187/123 H 172/112 H O2 Saturation 97 98 98 02/13/18 03:07 Temperature Heart Rate Respiratory Rate Blood Pressure 185/100 H O2 Saturation Oxygen O2 Source Room air Departure - Departure Disposition: ED Place in Observation Clinical Impression: Abdominal pain Qualifiers: Abdominal location: generalized Qualified Code(s): R10.84 - Generalized abdominal pain Nausea & vomiting Qualifiers: Vomiting type: cyclical vomiting Vomiting Intractability: intractable Qualified Code(s): G43.A1 - Cyclical vomiting, intractable Hypertension Qualifiers: Hypertension type: unspecified Qualified Code(s): I10 - Essential (primary) hypertension Condition: Stable
[2018-02-13] MEDS ORDERED: fentaNYL 100 MCG/2 ML VIAL IVP STA (03:22)
[2018-02-13] MEDS ORDERED: ONDANSETRON 4 MG/2 ML VIAL IVP STA (03:22)
[2018-02-13] MEDS ORDERED: IBUPROFEN 600 MG TABLET PO PRN (03:23)
[2018-02-13] MEDS ORDERED: ENALAPRILAT 1.25 MG/ML VIAL IVP PRN (03:24)
[2018-02-13] MEDS ORDERED: PROCHLORPERAZINE 10 MG/2 ML VIAL IVP PRN (03:24)
[2018-02-13] MEDS ORDERED: ONDANSETRON 4 MG/2 ML VIAL IVP PRN (03:24)
[2018-02-13] MEDS ORDERED: HALOPERIDOL 5 MG/ML VIAL IVP PRN (03:24)
[2018-02-13] MEDS ORDERED: PROMETHAZINE 25 MG/1 ML VIAL IM PRN (03:24)
[2018-02-13] MEDS ORDERED: LORazepam 2 MG/ML VIAL IVP PRN (03:24)
[2018-02-13] MEDS ORDERED: SODIUM CHLORIDE FLUSH 0.9% 10 ML SYRINGE IVP PRN (03:24)
[2018-02-13] MEDS ORDERED: ACETAMINOPHEN 1,000 MG/100 ML 100 ML IV PRN (03:24)
--- NOTE | 2018-02-13 04:19 | HISTORY & PHYSICAL EXAMINATION ---
Chief Complaint - Chief Complaint Chief Complaint: Abdominal pain, nausea and vomiting History of Present Illness - Admitted From Admitted From:: Emergency department - History Obtained From Records Reviewed: Yes History obtained from: Patient and medical records Exam Limitations: None - History of Present Illness HPI Comment/Other: Patient is a very unfortunate 36-year-old -[place] gentleman who has had intermittent left upper quadrant abdominal pain since approximately 2007. 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 Between then and now, he has relatively quiescent disease state up until 2014. He then had another episode of left upper quadrant abdominal pain for which he was admitted for pancreatitis. From 2014 till 2016 his disease state was quiescent. But between 2016 and now, he has been admitted 05/18/2015, 04/03/2017, 04/27/2017, 04/2017, 10/29/2017, 11/16/2017, 11/18/2017 and most recently earlier this week on . In addition to our hospital he has been admitted at least twice to [facility] in the same period of time. All of these admissions have been for intractable nausea and vomiting with left upper quadrant abdominal pain. He has had lipase as high as 900 or so at [facility]. For us here his highest lipase has been 327. He has not drank since 2015. In addition to the admissions this gentleman has had 29 ER visits since July this year alone. Today would be his 30th visit. Again they are all for the same problem of intractable nausea and vomiting with left upper quadrant abdominal pain. Workup has had 6 CT scans of the abdomen, and MRCP. An ultrasound of the abdomen done here. An ultrasound of the abdomen done at [facility]. He has had a colonoscopy in 04/2017 and he has had an EGD in 07/2017. None of these studies have delineated why this uncomfortable gentleman has an elevated amylase, nor has it delineated any anatomical abnormalities. He has had an intact biliary and pancreatic ductal system that appears grossly normal on MRCP. He has had no stones or thickened gallbladder on ultrasound or his abdominal CTs. He is being followed by nurse practitioner Kristin Hansen for his primary care provider. She last saw him on 11/09/2017 and he appears to be compliant with most of his visits. The patient has an appointment with gastroenterology at the [facility] on 02/25/2018. He has already been seen by Dr. Miller at [facility] gastroenterology. Dr. Miller is the one that recommended the MRCP. Other than the etiology of this pancreatitis being alcohol induced, Dr. Miller's note does not include an extensive differential. It was noted that every time that the patient presents with these symptoms he also has hypertensive urgency with blood pressures ranging up to mid 200s systolic and greater than 110 diastolic. Due to this during hospitalization on 11/18/2017 patient had metanephrines tested and they were slightly elevated. Its uncertain if this is in anyway related to his abdominal pain and symptoms of nausea and vomiting. It has been recommended to the patient that he follow up with endocrinology as an outpatient. In 2016 this patient weighed close to 82 kg. With the his episodes of nausea and vomiting unable to eat, in spite of severe hunger, his weight has drifted down to 63.5 kg. Patient was discharged from [facility] on 02/09/2018 after he was feeling 100% improved. After being discharged home the very next afternoon the patient's symptoms returned and he once again return to the emergency department where he was treated and felt well enough to go home but then returned again later that evening then again was discharged. He had another visit to the emergency department on 02/11/2018 and now is returning again on . The patient is returning again with complaints of left upper quadrant abdominal pain, nausea and vomiting. The patient states that around 5 PM on the patient tried to eat a watermelon and some chocolate covered almonds when all of a sudden he began having left upper quadrant abdominal pain. He states it was radiating to his back and then became associated with nausea and several bouts of vomiting. The patient states that he tried to take medication at home to deal with the symptoms but after 3 hours of fighting the symptoms he states that the symptoms became too unbearable and he came back to the emergency department this evening. The patient denies any fevers, chills, sick contacts. The patient states that the symptoms are identical to his previous presentations to the emergency department. The patient denies any headache, blurred vision, runny nose, sore throat, nasal congestion, difficulty swallowing, chest pain, cough, fever, chills, shortness of air, orthopnea, PND, increased lower extremity swelling, urinary urgency, urinary frequency, dysuria, joint pain, joint swelling, back pain, neck stiffness, skin changes, hair loss, polyuria, polydipsia or any focal neurologic deficits. On presentation to the emergency department the patient was afebrile, heart rate was 81 and he was hypertensive with a blood pressure of 208/120 and he was not in any respiratory distress. The patient however was in significant distress due to abdominal pain and nausea. In the emergency department the patient underwent routine lab work which revealed a slight hypokalemia but otherwise remainder of his electrolytes are within normal limits. The patient' s lipase was 49. Patient had no leukocytosis. The patient was given IV Haldol , IV Zofran, IV Phenergan and IV fluids. The patient was also given IV fentanyl for his pain. After all this treatment the patient still had no significant improvement in his pain or his nausea. Therefore it was felt that the patient was not going to be able to be discharged from the emergency department and will require an observation stay for continued treatment of his symptoms. The patient was placed in observation. History - Past Medical History Cardiovascular: reports: Hypertension Respiratory: reports: None Neuro: reports: None Endocrine/Autoimmune: reports: None GI: reports: Pancreatitis : reports: None HEENT: reports: None Psych: reports: Depression, Anxiety, Other Musculoskeletal: reports: None Derm: reports: None MRSA Hx?: No - Past Surgical History Ortho: reports: Other - Family & Social History Family History: Mother: Alive and Well, Hypertension, Father: Alive and Well, Hypertension, Renal Disease/Failure, Other family: Mental Illness Family History Comment/Other: Patient's mother has obesity, hypertension, arthritis and history of aortic dissection with aneurysm at the age of 50. One brother had a bicuspid aortic valve and had an aneurysm in his 20s. Social History Notes: He is unmarried. He does have 6 children with several mothers. His youngest child is 1 year old and his oldest is 19. 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 He now works in [employer]. He was drinking up to a pack and a half of beer a day when he stopped drinking in 2016. He does use cannabis daily he states that he smokes about a gram a day. The patient does smoke cigarettes about half a pack a day and has been doing so since his teen years. He denies any use of cocaine, heroin, LSD, methamphetamines. He denies any IV drug abuse. He is currently living with his mother and father and 1 of his brothers. While he is independent with activities of daily living with regard to dressing himself and feeding himself he is usually too tired to do much else. He still cooks for the family in general. In any given time many of his siblings, nieces and nephews are around the house and he participates in cooking and cleaning in the kitchen. - Substance History Use: Uses substance without health or social issues: Tobacco, Cannabis - POLST Patient has POLST: No POLST Status: Full Code Meds/Allgy - Home Medications Home Medications: Ambulatory Orders Medication Instructions Recorded Confirmed Amlodipine Besylate 10 mg PO DAILY 10/29/17 02/09/18 raNITIdine HCl [Ranitidine HCl] 300 mg PO DAILY 11/17/17 02/09/18 Ibuprofen 600 mg PO Q6HR PRN #30 tablet 11/19/17 02/09/18 Promethazine [Phenergan] 25 mg PO Q6H PRN #10 tab 12/10/17 02/09/18 Lidocaine Viscous 2% [Xylocaine 5 ml PO Q4H PRN #1 bottle 01/08/18 02/09/18 Viscous 2%] Omeprazole 40 mg PO QPM 02/09/18 02/09/18 Ondansetron HCl [Zofran] 8 mg PO Q8HR PRN #60 tablet 02/09/18 Prochlorperazine Maleate 10 mg PO Q6HR PRN #60 tablet 02/09/18 [Compazine] Promethazine HCl [Phenadoz] 25 mg RC Q4H PRN 02/09/18 02/09/18 Propranolol [Inderal] 5 mg PO BID 02/09/18 02/09/18 Venlafaxine HCl 37.5 mg PO BID 02/09/18 02/09/18 Promethazine Supp [Phenergan Supp] 25 mg MD Q6H PRN #20 supp 02/10/18 - Allergies Allergies/Adverse Reactions: Allergies Allergy/AdvReac Type Severity Reaction Status Date / Time morphine Allergy Hives Verified 02/13/18 03:37 Review of Systems - Other Findings Other Findings: A comprehensive review of systems was performed the pertinent positives and negatives are stated above in the HPI and the remainder of the review of systems is negative. Exam - Vital Signs Reviewed Vital Signs: Yes Vital Signs: Vital Signs x48h Temp Pulse Resp BP Pulse Ox 02/13/18 03:07 185/100 H 02/13/18 02:04 71 16 172/112 H 98 02/13/18 00:24 72 18 187/123 H 98 02/12/18 21:07 37.2 C 81 18 208/120 H 97 - Physical Exam General Appearance: positive: Alert, Moderate distress (Grimacing with pain and appears nauseated.) Eyes Bilateral: positive: Normal inspection, PERRL, EOMI, No lid inflammation, Conjunctivae nml, No scleral icterus ENT: positive: ENT inspection nml, Pharynx nml, Dry mucous membranes. negative : Purulent nasal drainage, Pharyngeal erythema, Oral lesions Neck: positive: Nml inspection, Thyroid nml, No JVD, Trachea midline. negative : Thyromegaly, Lymphadenopathy (R), Lymphadenopathy (L), Carotid bruit, Tracheal deviation Respiratory: positive: Chest non-tender, No respiratory distress, Breath sounds nml. negative: Wheezes, Rales, Rhonchi Cardiovascular: positive: Regular rate & rhythm, No murmur, No gallop Peripheral Pulses: positive: 2+ Abdomen: positive: No organomegaly, Nml bowel sounds, No distention, Tenderness (Left upper quadrant with no guarding). negative: Guarding, Rebound, Hepatomegaly Back: positive: Nml inspection. negative: CVA tenderness (R), CVA tenderness (L ) Skin: positive: Color nml, No rash, Warm, Dry. negative: Cyanosis, Diaphoresis , Pallor, Skin rash Extremities: positive: Non-tender, Full ROM, Nml appearance, No pedal edema Neurologic/Psychiatric: positive: Oriented x3, CN's nml (2-12), Motor nml, Sensation nml, Mood/affect nml Conclusion/Plan - Problem List (1) Intractable abdominal pain Conclusion/Plan: Patient has history of intractable abdominal pain of unknown etiology. Patient has been worked up with multiple CTs, MRCP and abdominal ultrasounds none of which has revealed a etiology of his pain. The patient has had pancreatitis in the past and may have chronic pancreatitis although his CT and MRCP does not reveal evidence of chronic pancreatitis. The patient does smoke marijuana daily. It is possible that the patient may have cyclic vomiting syndrome from excessive marijuana use or unspecified cyclic vomiting syndrome. The patient has an appointment with GI at [facility] for further evaluation to find etiology of his abdominal pain and intractable symptoms of nausea and vomiting on 02/25/2018. Currently the patient is being placed in observation as he has a flareup of his above problem. Recently the ER has decided to stop giving the patient narcotics in the ER although he received fentanyl in the ER. We will continue to avoid narcotics in the hospital as narcotics do not appear to help his pain. Plan: Patient will be placed on IV Tylenol and IV Toradol Patient will be given IV fluids We will monitor pain. (2) Intractable nausea and vomiting Conclusion/Plan: The patient has unspecified abdominal pain with intractable nausea and vomiting. As stated above he has had extensive workup without any obvious diagnosis being reached. It is possible the patient may have cyclic vomiting syndrome especially given the number of hospitalizations for intractable nausea and vomiting. Plan: Patient will be placed on IV Zofran, IM Phenergan and IV Compazine. He will also get IV Haldol and IV Ativan as needed for nausea and vomiting. Typically the patient's symptoms do resolve within 24 hours and he will be monitored in observation until symptoms resolve. Patient will be given IV fluids as he does appear to be dehydrated Qualifiers: Vomiting type: cyclical vomiting Qualified Code(s): G43.A1 - Cyclical vomiting, intractable (3) HTN (hypertension) Conclusion/Plan: The patient persistently presents with hypertension with blood pressure in the 200s. The patient's hypertension could be secondary to his abdominal pain. It is unlikely to be the cause of his abdominal pain although it could potentially be the cause of his nausea and vomiting. The patient denies any symptoms of palpitations or diaphoresis when he is blood pressure does become elevated. On patient's previous hospitalization we did check metanephrines to rule out the possibility of pheochromocytoma and it appears that the patient's metanephrines were slightly elevated. Plan: Pain control Continue patient's home dose of amlodipine Vasotec q6h prn for uncontrolled BP Monitor blood pressure Patient will need to follow-up as an outpatient for further workup for pheochromocytoma. The patient will need a referral to endocrinology. Qualifiers: Hypertension type: unspecified Qualified Code(s): I10 - Essential (primary ) hypertension (4) Hypokalemia Conclusion/Plan: Patient's potassium on presentation is 3.3. He likely has hypokalemia secondary to intractable nausea and vomiting. Patient will be given IV fluids and potassium replacement. We will continue to monitor his potassium. (5) Anxiety and depression Conclusion/Plan: Patient does have history of anxiety and depression and takes Effexor at home. We will continue the patient's Effexor during hospitalization. There is the possibility that this could be a psychosomatic pain and nausea. We would need to rule out all other possible causes before coming to this conclusion. (6) Cannabis abuse Conclusion/Plan: The patient does smoke marijuana daily. Once again I did have a discussion with the patient about the possibility of him having cannabinoid cyclic vomiting syndrome. I advised the patient to quit marijuana for longer duration of time to see if the patient's symptoms do resolve. The patient states that he has had these issues with abdominal pain, nausea and vomiting since before he every started using marijuana. (7) Tobacco abuse Conclusion/Plan: Patient has history of tobacco abuse. He continues to smoke about half a pack a day. The patient was counseled on the risks of smoking. He was offered a nicotine patch. - Lab Results Lab results reviewed: Yes Fish Bones: 02/12/18 21:28 02/12/18 21:28 Other Lab Results: Laboratory Results WBC 7.9 x10^3/uL (4.8-10.8) 02/12/18 21: RBC 5.03 10^6/uL (4.70-6.10) 02/12/18 21:28 Hgb 14.0 g/dL (14.0-18.0) 02/12/18 21: Hct 41.5 % (42.0-52.0) L 02/12/18 21:28 MCV 82.6 fL (80.0-94.0) 02/12/18 21:28 MCH 27.9 pg (27.0-31.0) 02/12/18 21:28 MCHC 33.8 g/dL (32.0-36.0) 02/12/18 21: RDW 14.2 % (12.0-15.0) 02/12/18 21:28 Plt Count 271 10^3/uL (130-450) 02/12/18 21:28 MPV 7.5 fL (7.4-11.4) 02/12/18 21:28 Neut # (Auto) 2.8 10^3/uL (1.5-6.6) 02/12/18 21:28 Lymph # (Auto) 4.0 10^3/uL (1.5-3.5) H 02/12/18 21:28 Tripp # (Auto) 0.7 10^3/uL (0.0-1.0) 02/12/18 21:28 Eos # (Auto) 0.3 10^3/uL (0.0-0.7) 02/12/18 21:28 Baso # (Auto) 0.1 10^3/uL (0.0-0.1) 02/12/18 21:28 Absolute Nucleated RBC 0.00 x10^3/uL 02/12/18 21:28 Nucleated RBC % 0.0 /100WBC 02/12/18 21:28 Sodium 136 mmol/L (135-145) 02/12/18 21:28 Potassium 3.3 mmol/L (3.5-5.0) L 02/12/18 21:28 Chloride 100 mmol/L (101-111) L 02/12/18 21:28 Carbon Dioxide 27 mmol/L (21-32) 02/12/18 21:28 Anion Gap 9.0 (6-13) 02/12/18 21:28 BUN 14 mg/dL (6-20) 02/12/18 21:28 Creatinine 1.0 mg/dL (0.6-1.2) 02/12/18 21:28 Estimated GFR (MDRD) 102 (>89) 02/12/18 21:28 Glucose 113 mg/dL (70-100) H 02/12/18 21:28 Calcium 9.6 mg/dL (8.5-10.3) 02/12/18 21:28 Total Bilirubin 0.6 mg/dL (0.2-1.0) 02/12/18 21:28 AST 29 IU/L (10-42) 02/12/18 21:28 ALT 37 IU/L (10-60) 02/12/18 21:28 Alkaline Phosphatase 70 IU/L (42-121) 02/12/18 21:28 Total Protein 7.6 g/dL (6.7-8.2) 02/12/18 21:28 Albumin 5.0 g/dL (3.2-5.5) 02/12/18 21:28 Globulin 2.6 g/dL (2.1-4.2) 02/12/18 21:28 Albumin/Globulin Ratio 1.9 (1.0-2.2) 02/12/18 21:28 Lipase 49 U/L (22-51) 02/12/18 21:28 Urine Color YELLOW 02/12/18 22:50 Urine Clarity CLEAR (CLEAR) 02/12/18 22:50 Urine pH 6.5 PH (5.0-7.5) 02/12/18 22:50 Ur Specific [place] 1.010 (1.002-1.030) 02/12/18 22:50 Urine Protein NEGATIVE mg/dL (NEGATIVE) 02/12/18 22:50 Urine Glucose (UA) NEGATIVE mg/dL (NEGATIVE) 02/12/18 22:50 Urine Ketones NEGATIVE mg/dL (NEGATIVE) 02/12/18 22:50 Urine Occult Blood NEGATIVE (NEGATIVE) 02/12/18 22:50 Urine Nitrite NEGATIVE (NEGATIVE) 02/12/18 22:50 Urine Bilirubin NEGATIVE (NEGATIVE) 02/12/18 22:50 Urine Urobilinogen 0.2 (NORMAL) E.U./dL (NORMAL) 02/12/18 22:50 Ur Leukocyte Esterase NEGATIVE (NEGATIVE) 02/12/18 22:50 Ur Microscopic Review NOT INDICATED 02/12/18 22:50 Urine Culture Comments NOT INDICATED 02/12/18 22:50 Core Measures - Anticipated LOS I expect patient to be DC'd or transferred within 96 hours.: Yes - DVT/VTE - Prophylaxis VTE/DVT Prophylaxis med ordered at admit?: Yes
[2018-02-13] MEDS: NS W/20 MEQ KCL 1,000 ML IV SCH ×2 (05:13→17:36)
[2018-02-13] MEDS: KETOROLAC 30 MG/ML VIAL IVP PRN ×3 (05:38→21:07)
[2018-02-13 06:09] LABS: BASOPHILS # (AUTO) 0.1 10^3/uL (0.0-0.1); BASOPHILS % (AUTO) 0.7 %; EOSINOPHILS % (AUTO) 0.1 %; HGB - HEMOGLOBIN 15.4 g/dL (14.0-18.0); LYMPHOCYTES # (AUTO) 0.7 10^3/uL (1.5-3.5); LYMPHOCYTES % (AUTO) 7.8 %; MEAN CORPUSCULAR HEMOGLOBIN 26.9 pg (27.0-31.0); MEAN CORPUSCULAR HGB CONC 32.4 g/dL (32.0-36.0); MEAN CORPUSCULAR VOLUME 83.1 fL (80.0-94.0); MEAN PLATELET VOLUME 7.1 fL (7.4-11.4); MONOCYTES # (AUTO) 0.3 10^3/uL (0.0-1.0); MONOCYTES % (AUTO) 3.8 %; NEUTROPHILS # (AUTO) 8.1 10^3/uL (1.5-6.6); NEUTROPHILS % (AUTO) 87.6 %; PLT - PLATELET COUNT 282 10^3/uL (130-450); RED BLOOD COUNT 5.73 10^6/uL (4.70-6.10); RED CELL DISTRIBUTION WIDTH 14.1 % (12.0-15.0); WHITE BLOOD COUNT 9.2 x10^3/uL (4.8-10.8)
[2018-02-13 06:29] LABS: ALBUMIN 4.8 g/dL (3.2-5.5); ALBUMIN/GLOBULIN RATIO 1.4 (1.0-2.2); BILIRUBIN,TOTAL 0.8 mg/dL (0.2-1.0); CALCIUM 9.2 mg/dL (8.5-10.3); CREATININE 0.8 mg/dL (0.6-1.2); MAGNESIUM 1.7 mg/dL (1.7-2.8); PHOSPHORUS 3.2 mg/dL (2.5-4.6); TOTAL PROTEIN 8.3 g/dL (6.7-8.2)
[2018-02-13] MEDS: hydrALAZINE INJ 20 MG/ML VIAL IVP ONE ×2 (07:44→07:49)
[2018-02-13] MEDS ORDERED: POTASSIUM CHLORIDE INJ 40 MEQ in SODIUM CHLORIDE 0.9% 480 ML IV ONE (08:30)
[2018-02-13] MEDS: VENLAFAXINE 37.5 MG TABLET PO SCH ×2 (11:03→21:07)
[2018-02-13] MEDS: ENOXAPARIN 40 MG/0.4 ML SYRINGE SUBQ SCH (11:03)
[2018-02-13] MEDS: amLODIPine 5 MG TABLET PO SCH (11:03)
[2018-02-13] MEDS: FAMOTIDINE 20 MG/50 ML 50 ML IV SCH ×2 (11:03→21:07)
[2018-02-13] MEDS: POLYETHYLENE GLYCOL 3350 17 GM PACKET PO SCH (11:04)
[2018-02-13] MEDS: SODIUM CHLORIDE FLUSH 0.9% 10 ML SYRINGE IVP SCH ×2 (11:04→17:36)
[2018-02-14] MEDS: NS W/20 MEQ KCL 1,000 ML IV SCH (02:45)
[2018-02-14] MEDS: SODIUM CHLORIDE FLUSH 0.9% 10 ML SYRINGE IVP SCH ×2 (03:22→08:36)
[2018-02-14] MEDS ORDERED: NICOTINE 14 MG PATCH TOP SCH (04:00)
[2018-02-14 07:44] VITALS: BP 147/85
[2018-02-14 07:45] LABS: BASOPHILS % (AUTO) 0.9 %; EOSINOPHILS # (AUTO) 0.2 10^3/uL (0.0-0.7); EOSINOPHILS % (AUTO) 3.8 %; HGB - HEMOGLOBIN 13.5 g/dL (14.0-18.0); LYMPHOCYTES # (AUTO) 2.4 10^3/uL (1.5-3.5); LYMPHOCYTES % (AUTO) 52.2 %; MEAN CORPUSCULAR HEMOGLOBIN 26.9 pg (27.0-31.0); MEAN CORPUSCULAR HGB CONC 32.5 g/dL (32.0-36.0); MEAN CORPUSCULAR VOLUME 82.7 fL (80.0-94.0); MEAN PLATELET VOLUME 7.6 fL (7.4-11.4); MONOCYTES # (AUTO) 0.5 10^3/uL (0.0-1.0); MONOCYTES % (AUTO) 10.7 %; NEUTROPHILS # (AUTO) 1.5 10^3/uL (1.5-6.6); NEUTROPHILS % (AUTO) 32.4 %; PLT - PLATELET COUNT 249 10^3/uL (130-450); RED BLOOD COUNT 5.04 10^6/uL (4.70-6.10); RED CELL DISTRIBUTION WIDTH 14.1 % (12.0-15.0); WHITE BLOOD COUNT 4.5 x10^3/uL (4.8-10.8)
[2018-02-14 07:57] LABS: ALBUMIN 3.5 g/dL (3.2-5.5); ALBUMIN/GLOBULIN RATIO 1.4 (1.0-2.2); BILIRUBIN,TOTAL 1.3 mg/dL (0.2-1.0); CALCIUM 8.8 mg/dL (8.5-10.3); CREATININE 0.9 mg/dL (0.6-1.2)
[2018-02-14] MEDS: KETOROLAC 30 MG/ML VIAL IVP PRN (08:35)
[2018-02-14] MEDS: amLODIPine 5 MG TABLET PO SCH (08:35)
[2018-02-14] MEDS: ENOXAPARIN 40 MG/0.4 ML SYRINGE SUBQ SCH (08:36)
[2018-02-14] MEDS: FAMOTIDINE 20 MG/50 ML 50 ML IV SCH (08:36)
[2018-02-14] MEDS: VENLAFAXINE 37.5 MG TABLET PO SCH (08:36)
[2018-02-14] MEDS: POLYETHYLENE GLYCOL 3350 17 GM PACKET PO SCH (08:36)
[2018-02-14] MEDS ORDERED: SENNA 8.6 MG TABLET PO SCH (09:00)
--- NOTE | 2018-02-14 11:23 | Discharge Plan ---
Discharge Plan Disposition: 01 Home, Self Care Condition: Stable Diet: Soft Activity Restrictions: Activity as Tolerated Shower Restrictions: No Driving Restrictions: No Instruction Topics: Hyperemesis Additional Instructions or Follow Up instructions: Continue with your appointment at the [facility] on February 25. No Smoking: If you smoke, Please STOP! Call for help. Follow-up with: Kristin Hansen ARNP [Primary Care Provider] -
--- NOTE | 2018-02-14 14:50 | DISCHARGE SUMMARY ---
Discharge Summary Admit Date: 02/13/18 Discharge Date: 02/14/18 Discharging Provider: Sharla Pena DO Primary Care Provider: Kristin Hansen Code Status: Attempt Resuscitation Condition at Discharge: Stable Discharge Disposition: 01 Home, Self Care - DIAGNOSES Admission Diagnoses: 1. Intractable abdominal pain 2. Intractable nausea and vomiting 3. Hypertension 4. Hypokalemia 5. Anxiety and depression 6. Cannabis abuse 7. Tobacco abuse Discharge Diagnoses with Status of Each Condition: 1. Intractable abdominal pain- Improved, resolved. The patient is not complaining of abdominal pain at this time. This is almost certainly related to his intractable nausea and vomiting. 2. Intractable nausea and vomiting- Controlled, the patient has tolerated clear liquid diet. He is now requesting discharge home. He has a visit scheduled with gastroenterology at the [facility] on February 25. 3. Hypertension- The case patient came in with a systolic blood pressure in the 200s and this is not the first time he has had a similar presentation. He was given 1 dose of hydralazine and placed back on his home blood pressure medications and he his blood pressure has been well managed since that time. He will resume his home medication regimen. 4. Hypokalemia- Most likely related to the patient's intractable nausea and vomiting. His potassium on admission was 3.3, and has been corrected to 4.0. He will resume his home medication regimen. 5. Anxiety and depression- Patient has a history of anxiety and depression and takes Effexor at home. He will resume this on discharge. 6. Cannabis abuse- The patient is a daily marijuana smoker and we have had multiple discussions with him regarding can avoid cyclic vomiting syndrome. The patient states that he has had these issues with abdominal pain, nausea and vomiting since before he ever started using marijuana however still does not preclude this as an etiology for of his current cyclical vomiting syndrome. Recommend cessation of cannabis use to assess any possible association with the cyclical vomiting syndrome. 7. Tobacco abuse- Patient was offered a nicotine patch and was counseled on the risks of smoking. - HPI History of Present Illness: From Dr. Barnes's H&P: Patient is a very unfortunate 36-year-old -Mex[place] gentleman who has had intermittent left upper quadrant abdominal pain since approximately 2007. 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 Between then and now, he has relatively quiescent disease state up until 2014. He then had another episode of left upper quadrant abdominal pain for which he was admitted for pancreatitis. From 2014 till 2016 his disease state was quiescent. But between 2016 and now, he has been admitted 05/18/2015, 04/03/2017, 04/27/2017, 04/2017, 10/29/2017, 11/16/2017, 11/18/2017 and most recently earlier this week on . In addition to our hospital he has been admitted at least twice to [facility] in the same period of time. All of these admissions have been for intractable nausea and vomiting with left upper quadrant abdominal pain. He has had lipase as high as 900 or so at [facility]. For us here his highest lipase has been 327. He has not drank since 2015. In addition to the admissions this gentleman has had 29 ER visits since July this year alone. Today would be his 30th visit. Again they are all for the same problem of intractable nausea and vomiting with left upper quadrant abdominal pain. Workup has had 6 CT scans of the abdomen, and MRCP. An ultrasound of the abdomen done here. An ultrasound of the abdomen done at [facility]. He has had a colonoscopy in 04/2017 and he has had an EGD in 07/2017. None of these studies have delineated why this uncomfortable gentleman has an elevated amylase, nor has it delineated any anatomical abnormalities. He has had an intact biliary and pancreatic ductal system that appears grossly normal on MRCP. He has had no stones or thickened gallbladder on ultrasound or his abdominal CTs. He is being followed by nurse practitioner Kristin Hansen for his primary care provider. She last saw him on 11/09/2017 and he appears to be compliant with most of his visits. The patient has an appointment with gastroenterology at the [facility] on 02/25/2018. He has already been seen by Dr. Miller at [facility] gastroenterology. Dr. Miller is the one that recommended the MRCP. Other than the etiology of this pancreatitis being alcohol induced, Dr. Millre's note does not include an extensive differential. It was noted that every time that the patient presents with these symptoms he also has hypertensive urgency with blood pressures ranging up to mid 200s systolic and greater than 110 diastolic. Due to this during hospitalization on 11/18/2017 patient had metanephrines tested and they were slightly elevated. Its uncertain if this is in anyway related to his abdominal pain and symptoms of nausea and vomiting. It has been recommended to the patient that he follow up with endocrinology as an outpatient. In 2016 this patient weighed close to 82 kg. With the his episodes of nausea and vomiting unable to eat, in spite of severe hunger, his weight has drifted down to 63.5 kg. Patient was discharged from [facility] on 02/09/2018 after he was feeling 100% improved. After being discharged home the very next afternoon the patient's symptoms returned and he once again return to the emergency department where he was treated and felt well enough to go home but then returned again later that evening then again was discharged. He had another visit to the emergency department on 02/11/2018 and now is returning again on . The patient is returning again with complaints of left upper quadrant abdominal pain, nausea and vomiting. The patient states that around 5 PM on the patient tried to eat a watermelon and some chocolate covered almonds when all of a sudden he began having left upper quadrant abdominal pain. He states it was radiating to his back and then became associated with nausea and several bouts of vomiting. The patient states that he tried to take medication at home to deal with the symptoms but after 3 hours of fighting the symptoms he states that the symptoms became too unbearable and he came back to the emergency department this evening. The patient denies any fevers, chills, sick contacts. The patient states that the symptoms are identical to his previous presentations to the emergency department. The patient denies any headache, blurred vision, runny nose, sore throat, nasal congestion, difficulty swallowing, chest pain, cough, fever, chills, shortness of air, orthopnea, PND, increased lower extremity swelling, urinary urgency, urinary frequency, dysuria, joint pain, joint swelling, back pain, neck stiffness, skin changes, hair loss, polyuria, polydipsia or any focal neurologic deficits. On presentation to the emergency department the patient was afebrile, heart rate was 81 and he was hypertensive with a blood pressure of 208/120 and he was not in any respiratory distress. The patient however was in significant distress due to abdominal pain and nausea. In the emergency department the patient underwent routine lab work which revealed a slight hypokalemia but otherwise remainder of his electrolytes are within normal limits. The patient' s lipase was 49. Patient had no leukocytosis. The patient was given IV Haldol , IV Zofran, IV Phenergan and IV fluids. The patient was also given IV fentanyl for his pain. After all this treatment the patient still had no significant improvement in his pain or his nausea. Therefore it was felt that the patient was not going to be able to be discharged from the emergency department and will require an observation stay for continued treatment of his symptoms. The patient was placed in observation. - HOSPITAL COURSE Hospital Course: The patient was admitted to the hospital in observation bed, given medications for his uncontrolled blood pressure, he was n.p.o. overnight and tolerated a clear liquid diet this morning. He is now requesting discharge home as he feels much better.He is scheduled to see a explosive man at the [facility] for his uncontrolled cyclical vomiting syndrome on February 25. - ALLERGIES Allergies/Adverse Reactions: Allergies Allergy/AdvReac Type Severity Reaction Status Date / Time morphine Allergy Hives Verified 02/13/18 03:37 - MEDICATIONS Home Medications: Ambulatory Orders Medication Instructions Recorded Confirmed Amlodipine Besylate 10 mg PO DAILY 10/29/17 02/13/18 raNITIdine HCl [Ranitidine HCl] 300 mg PO DAILY 11/17/17 02/13/18 Ibuprofen 600 mg PO Q6HR PRN #30 tablet 11/19/17 02/13/18 Promethazine [Phenergan] 25 mg PO Q6H PRN #10 tab 12/10/17 02/13/18 Lidocaine Viscous 2% [Xylocaine 5 ml PO Q4H PRN #1 bottle 01/08/18 02/13/18 Viscous 2%] Omeprazole 40 mg PO QPM 02/09/18 02/13/18 Ondansetron HCl [Zofran] 8 mg PO Q8HR PRN #60 tablet 02/09/18 02/13/18 Prochlorperazine Maleate 10 mg PO Q6HR PRN #60 tablet 02/09/18 02/13/18 [Compazine] Promethazine HCl [Phenadoz] 25 mg RC Q4H PRN 02/09/18 02/13/18 Propranolol [Inderal] 5 mg PO BID 02/09/18 02/13/18 Venlafaxine HCl 37.5 mg PO BID 02/09/18 02/13/18 Promethazine Supp [Phenergan Supp] 25 mg [place] Q6H PRN #20 supp 02/10/18 02/13/18 - PHYSICAL EXAM AT DISCHARGE General Appearance: positive: No acute distress, Alert Eyes Bilateral: positive: Normal inspection, PERRL, EOMI, No lid inflammation, Conjunctivae nml, No scleral icterus ENT: positive: ENT inspection nml, Pharynx nml Neck: positive: Nml inspection, Thyroid nml, No JVD, Trachea midline. negative : Thyromegaly Respiratory: positive: Chest non-tender, No respiratory distress, Breath sounds nml. negative: Wheezes, Rales, Rhonchi Cardiovascular: positive: Regular rate & rhythm, No murmur, No gallop Peripheral Pulses: positive: 1+ Abdomen: positive: No organomegaly, Nml bowel sounds, No distention, Tenderness. negative: Guarding, Rebound, Hepatomegaly, Splenomegaly, Mass Back: positive: Nml inspection. negative: CVA tenderness (R), CVA tenderness (L ) Skin: positive: Color nml, No rash, Warm, Dry. negative: Cyanosis Extremities: positive: Non-tender, Full ROM, Nml appearance, No pedal edema Neurologic/Psychiatric: positive: Oriented x3, CN's nml (2-12), Motor nml, Sensation nml, Mood/affect nml - LABS Result Diagrams: 02/14/18 07:25 02/14/18 07:25 - DIAGNOSTIC IMAGING Diagnostic Imaging Results: Final report reviewed - FOLLOW UP Follow Up: Follow-up with your gastroenterology appointment at the [facility] on February 25. Follow-up with your PCP, Kristin Hansen this week. Stop using cannabis. - TIME SPENT Time Spent in Discharge (Minutes): 35
== END 2018-02-14 12:10 | disposition home or self-care (01) ==
LOC: EDUNIT# → ED 21:05 → MS3 02-13 03:24
PROVIDERS: ADMIT Internal Medicine; ATTEND Hospitalist
DX: K31.89 Other diseases of stomach and duodenum (principal); R11.2 Nausea with vomiting, unspecified; R10.12 Left upper quadrant pain; R10.13 Epigastric pain; R10.812 Left upper quadrant abdominal tenderness; R10.816 Epigastric abdominal tenderness; I16.0 Hypertensive urgency; I10 Essential (primary) hypertension; Z87.19 Personal history of other diseases of the digestive system; E87.6 Hypokalemia; F41.9 Anxiety disorder, unspecified; F32.9 Major depressive disorder, single episode, unspecified; F12.10 Cannabis abuse, uncomplicated; F10.11 Alcohol abuse, in remission; F17.210 Nicotine dependence, cigarettes, uncomplicated; Z79.899 Other long term (current) drug therapy
CPT/HCPCS: 36415; 80053; 81003; 83605; 83690; 83735; 84100; 85025; 96361; 96365; 96366; 96367; 96368; 96372; 96375; 96376; 99284; A9270; G0378; J0131; J1650; J2060; J7040; 81001; 87086

== ENCOUNTER 2018-02-15 17:09 | Outpatient (CLI) | payer MEDICAID | END 2018-02-15 17:10 | disposition critical access hospital (66) | LOC: EMS 17:09 | PROVIDERS: ATTEND Surgery | DX: R10.9 Unspecified abdominal pain (principal); R11.2 Nausea with vomiting, unspecified; R53.1 Weakness | CPT/HCPCS: A0425; A0429; A0999 ==

== ENCOUNTER 2018-02-15 17:34 | Emergency (ER) | payer MEDICAID ==
[2018-02-15] MEDS ORDERED: fentaNYL 100 MCG/2 ML VIAL IVP STA (17:43)
[2018-02-15] MEDS ORDERED: SODIUM CHLORIDE 0.9% 1,000 ML IV ONE (17:43)
[2018-02-15] MEDS ORDERED: HALOPERIDOL 5 MG/ML VIAL IVP ONE (17:43)
--- NOTE | 2018-02-15 17:49 | ED Physician Documentation ---
PD HPI ABD PAIN - Stated complaint Stated Complaint: VOMITING - History obtained from History obtained from: Patient, EMS - History of Present Illness Timing - onset: Today (This is a 37-year-old gentleman who is well-known to this emergency department for undifferentiated chronic abdominal pain and cyclic vomiting syndrome, potentially cannabinoid hyperemesis. He was released from the hospital after an observation stay for intractable pain and nausea yesterday and returns today, after eating avocado and Jell-O the pain recurred. It is severe epigastric pain with vomiting with a small amount of blood- tinged to it.) Review of Systems Ten Systems: 10 systems reviewed and negative Constitutional: reports: Sweats. denies: Fever, Chills GI: reports: Abdominal Pain, Nausea, Vomiting. denies: Diarrhea, Bloody / black stool : denies: Dysuria, Frequency PD PAST MEDICAL HISTORY - Past Medical History Cardiovascular: Hypertension Respiratory: None Neuro: None Endocrine/Autoimmune: None GI: Pancreatitis : None HEENT: None Psych: Depression, Anxiety, Other Musculoskeletal: None Derm: None - Past Surgical History Past Surgical History: Yes Ortho: Other - Present Medications Home Medications: Ambulatory Orders Medication Instructions Recorded Confirmed Amlodipine Besylate 10 mg PO DAILY 10/29/17 02/13/18 raNITIdine HCl [Ranitidine HCl] 300 mg PO DAILY 11/17/17 02/13/18 Ibuprofen 600 mg PO Q6HR PRN #30 tablet 11/19/17 02/13/18 Promethazine [Phenergan] 25 mg PO Q6H PRN #10 tab 12/10/17 02/13/18 Lidocaine Viscous 2% [Xylocaine 5 ml PO Q4H PRN #1 bottle 01/08/18 02/13/18 Viscous 2%] Omeprazole 40 mg PO QPM 02/09/18 02/13/18 Ondansetron HCl [Zofran] 8 mg PO Q8HR PRN #60 tablet 02/09/18 02/13/18 Prochlorperazine Maleate 10 mg PO Q6HR PRN #60 tablet 02/09/18 02/13/18 [Compazine] Promethazine HCl [Phenadoz] 25 mg RC Q4H PRN 02/09/18 02/13/18 Propranolol [Inderal] 5 mg PO BID 02/09/18 02/13/18 Venlafaxine HCl 37.5 mg PO BID 02/09/18 02/13/18 Promethazine Supp [Phenergan Supp] 25 mg [place] Q6H PRN #20 supp 02/10/18 02/13/18 - Allergies Allergies/Adverse Reactions: Allergies Allergy/AdvReac Type Severity Reaction Status Date / Time morphine Allergy Hives Verified 02/13/18 03:37 - Social History Does the pt smoke?: Yes Smoking Status: Current every day smoker Does the pt drink ETOH?: No Does the pt have substance abuse?: Yes - Immunizations Immunizations are current?: No - POLST Patient has POLST: No POLST Status: Full Code PD ED PE NORMAL - Vitals Vital signs reviewed: Yes - General General: Alert and oriented X 3 (Sweaty and uncomfortable) - HEENT HEENT: PERRL, EOMI - Neck Neck: Supple, no meningeal sign, No bony TTP - Cardiac Cardiac: RRR, No murmur - Respiratory Respiratory: No respiratory distress, Clear bilaterally - Abdomen Abdomen: Other (Mild epigastric tenderness without guarding or rebound) - Back Back: No CVA TTP, No spinal TTP - Derm Derm: Normal color, Warm and dry - Extremities Extremities: No deformity, No tenderness to palpate, Normal ROM s pain - Neuro Neuro: Alert and oriented X 3, Normal speech Results - Vitals Vitals: Vital Signs - 24 hr 02/15/18 02/15/18 02/15/18 17:50 19:52 21:55 Temperature 36.0 C L Heart Rate 85 88 76 Respiratory 20 18 16 Rate Blood Pressure 228/130 H 230/126 H 212/128 H O2 Saturation 97 98 98 02/15/18 23:02 Temperature Heart Rate 72 Respiratory 16 Rate Blood Pressure 193/112 H O2 Saturation 98 Oxygen O2 Source Room air - Labs Labs: Laboratory Tests 02/15/18 02/15/18 15:05 15:05 WBC 8.3 RBC 5.06 Hgb 13.8 L Hct 42.0 MCV 82.9 MCH 27.3 MCHC 32.9 RDW 14.5 Plt Count 272 MPV 7.3 L Neut # (Auto) 5.7 Lymph # (Auto) 1.8 [place] # (Auto) 0.6 Eos # (Auto) 0.2 Baso # (Auto) 0.1 Absolute Nucleated RBC 0.00 Nucleated RBC % 0.0 Sodium 136 Potassium 3.1 L Chloride 100 L Carbon Dioxide 26 Anion Gap 10.0 BUN 11 Creatinine 0.9 Estimated GFR (MDRD) 115 Glucose 104 H Calcium 9.3 Total Bilirubin 0.6 AST 25 ALT 29 Alkaline Phosphatase 74 Total Protein 7.7 Albumin 4.6 Globulin 3.1 Albumin/Globulin Ratio 1.5 Lipase 45 PD MEDICAL DECISION MAKING - ED course ED course: 37yo male with recurrent epigastric pain. See multiple chart notes on same. Improved here with meds and requested discharge. VS are normal for him during these flares. - Sepsis Event Vital Signs: Vital Signs - 24 hr 02/15/18 02/15/18 02/15/18 17:50 19:52 21:55 Temperature 36.0 C L Heart Rate 85 88 76 Respiratory 20 18 16 Rate Blood Pressure 228/130 H 230/126 H 212/128 H O2 Saturation 97 98 98 02/15/18 23:02 Temperature Heart Rate 72 Respiratory 16 Rate Blood Pressure 193/112 H O2 Saturation 98 Oxygen O2 Source Room air Departure - Departure Disposition: 01 Home, Self Care Clinical Impression: Intractable abdominal pain Intractable nausea and vomiting Qualifiers: Vomiting type: cyclical vomiting Qualified Code(s): G43.A1 - Cyclical vomiting , intractable Condition: Good Record reviewed to determine appropriate education?: Yes Instructions: ED Abdominal Pain Unkn Cause Comments: Follow the discharge instructions you were given discharge from the hospital yesterday and also those prescriptions. Discharge Date/Time: 02/15/18 23:44
[2018-02-15 18:11] LABS: BASOPHILS # (AUTO) 0.1 10^3/uL (0.0-0.1); BASOPHILS % (AUTO) 0.7 %; EOSINOPHILS # (AUTO) 0.2 10^3/uL (0.0-0.7); EOSINOPHILS % (AUTO) 2.4 %; HGB - HEMOGLOBIN 13.8 g/dL (14.0-18.0); LYMPHOCYTES # (AUTO) 1.8 10^3/uL (1.5-3.5); LYMPHOCYTES % (AUTO) 21.3 %; MEAN CORPUSCULAR HEMOGLOBIN 27.3 pg (27.0-31.0); MEAN CORPUSCULAR HGB CONC 32.9 g/dL (32.0-36.0); MEAN CORPUSCULAR VOLUME 82.9 fL (80.0-94.0); MEAN PLATELET VOLUME 7.3 fL (7.4-11.4); MONOCYTES # (AUTO) 0.6 10^3/uL (0.0-1.0); MONOCYTES % (AUTO) 7.1 %; NEUTROPHILS # (AUTO) 5.7 10^3/uL (1.5-6.6); NEUTROPHILS % (AUTO) 68.5 %; PLT - PLATELET COUNT 272 10^3/uL (130-450); RED BLOOD COUNT 5.06 10^6/uL (4.70-6.10); RED CELL DISTRIBUTION WIDTH 14.5 % (12.0-15.0); WHITE BLOOD COUNT 8.3 x10^3/uL (4.8-10.8)
[2018-02-15 18:26] LABS: ALBUMIN 4.6 g/dL (3.2-5.5); ALBUMIN/GLOBULIN RATIO 1.5 (1.0-2.2); BILIRUBIN,TOTAL 0.6 mg/dL (0.2-1.0); CALCIUM 9.3 mg/dL (8.5-10.3); CREATININE 0.9 mg/dL (0.6-1.2); TOTAL PROTEIN 7.7 g/dL (6.7-8.2)
[2018-02-15] MEDS ORDERED: POTASSIUM BICARB 25 MEQ TABLET PO STA (19:09)
[2018-02-15] MEDS ORDERED: HYDROmorphone 2 MG/ML VIAL IVP STA ×2 (19:16→22:39)
[2018-02-15] MEDS ORDERED: METOCLOPRAMIDE 10 MG/2 ML VIAL IVP STA ×2 (19:16→22:39)
[2018-02-15] MEDS ORDERED: ONDANSETRON 4 MG/2 ML VIAL IVP STA (21:57)
[2018-02-15 23:03] VITALS: BP 193/112
== END 2018-02-15 23:44 | disposition home or self-care (01) ==
LOC: EDUNIT# → ED 17:34
DX: R10.13 Epigastric pain (principal); G43.A1 Cyclical vomiting, in migraine, intractable; I10 Essential (primary) hypertension; F17.200 Nicotine dependence, unspecified, uncomplicated
CPT/HCPCS: 36415; 80053; 83690; 85025; 96374; 96375; 96376; 99283; 99284; A9270; J1170; J2765

== ENCOUNTER 2018-03-15 08:25 | Outpatient (CLI) | payer MEDICAID | END 2018-03-15 08:26 | disposition critical access hospital (66) | LOC: EMS 08:25 | PROVIDERS: ATTEND Surgery | DX: R10.12 Left upper quadrant pain (principal); R11.2 Nausea with vomiting, unspecified | CPT/HCPCS: A0425; A0429; A0999 ==

== ENCOUNTER 2018-03-15 08:45 | Emergency (ER) | payer MEDICAID ==
--- NOTE | 2018-03-15 08:52 | ED Physician Documentation ---
History of Present Illness - Stated complaint Stated Complaint: ABD PX - Additonal information Additional information: hx from pt and chart 37 male well known to our ED for his chronic abd pain and vomiting - > 30 visits to our ED for same in 2018 so far dx is somewhat unclear but sometimes has elevated lipase suggesting pancreatitis and also has features of cyclic vomiting syndrome has had extensive prior work up including CTAP, MRCP, RUQ sono, EGD, colonoscopy he does use THC and I have advised him numerous times that cannaboid hyperemesis but he does not believe that the THC is related to his sx so he has not stopped use of same to ED BIBA today so abd pain NV no diarrhea no fever no bad food no travel no prior surgery has been seen by GI s dx and and now waiting to be seen by GI at [facility] next month Review of Systems Constitutional: denies: Fever, Chills Cardiac: denies: Chest pain / pressure Respiratory: denies: Dyspnea, Cough GI: reports: Abdominal Pain, Nausea, Vomiting. denies: Diarrhea Endocrine: denies: Easy bruising / bleeding Immunocompromised: denies: Immunocompromised PD PAST MEDICAL HISTORY - Past Medical History Cardiovascular: Hypertension Respiratory: None Neuro: None Endocrine/Autoimmune: None GI: Pancreatitis : None HEENT: None Psych: Depression, Anxiety, Other Musculoskeletal: None Derm: None - Past Surgical History Past Surgical History: Yes Ortho: Other - Present Medications Home Medications: Ambulatory Orders Medication Instructions Recorded Confirmed Amlodipine Besylate 10 mg PO DAILY 10/29/17 02/13/18 raNITIdine HCl [Ranitidine HCl] 300 mg PO DAILY 11/17/17 02/13/18 Ibuprofen 600 mg PO Q6HR PRN #30 tablet 11/19/17 02/13/18 Promethazine [Phenergan] 25 mg PO Q6H PRN #10 tab 12/10/17 02/13/18 Lidocaine Viscous 2% [Xylocaine 5 ml PO Q4H PRN #1 bottle 01/08/18 02/13/18 Viscous 2%] Omeprazole 40 mg PO QPM 02/09/18 02/13/18 Ondansetron HCl [Zofran] 8 mg PO Q8HR PRN #60 tablet 02/09/18 02/13/18 Prochlorperazine Maleate 10 mg PO Q6HR PRN #60 tablet 02/09/18 02/13/18 [Compazine] Promethazine HCl [Phenadoz] 25 mg RC Q4H PRN 02/09/18 02/13/18 Propranolol [Inderal] 5 mg PO BID 02/09/18 02/13/18 Venlafaxine HCl 37.5 mg PO BID 02/09/18 02/13/18 Promethazine Supp [Phenergan Supp] 25 mg [place] Q6H PRN #20 supp 02/10/18 02/13/18 - Allergies Allergies/Adverse Reactions: Allergies Allergy/AdvReac Type Severity Reaction Status Date / Time morphine Allergy Hives Verified 02/13/18 03:37 - Social History Does the pt smoke?: Yes Smoking Status: Current every day smoker Does the pt drink ETOH?: No Does the pt have substance abuse?: Yes - Immunizations Immunizations are current?: No - POLST Patient has POLST: No POLST Status: Full Code PD ED PE NORMAL - Vitals Vital signs reviewed: Yes - General General: Other (thin miserable appearing) - Neck Neck: Supple, no meningeal sign - Cardiac Cardiac: RRR - Respiratory Respiratory: No respiratory distress, Clear bilaterally - Abdomen Abdomen: Soft, Other (TTP LUQ s peritoneal signs) - Derm Derm: Normal color - Neuro Neuro: Alert and oriented X 3 Results - Vitals Vitals: Vital Signs - 24 hr 03/15/18 03/15/18 03/15/18 08:45 08:50 09:00 Temperature 36 C L Heart Rate 60 72 78 Respiratory 19 16 16 Rate Blood Pressure 194/123 H 183/136 H 212/127 H O2 Saturation 98 96 95 03/15/18 03/15/18 09:30 10:00 Temperature Heart Rate 55 L 52 L Respiratory 16 16 Rate Blood Pressure 196/105 H 203/109 H O2 Saturation 98 100 Oxygen O2 Source Room air - Labs Labs: Laboratory Tests 03/15/18 03/15/18 09:18 09:18 WBC 7.7 RBC 5.57 Hgb 15.1 Hct 45.4 MCV 81.5 MCH 27.1 MCHC 33.2 RDW 14.2 Plt Count 266 MPV 7.3 L Neut # (Auto) 5.1 Lymph # (Auto) 1.7 Faulk # (Auto) 0.6 Eos # (Auto) 0.2 Baso # (Auto) 0.1 Absolute Nucleated RBC 0.00 Nucleated RBC % 0.0 Sodium 137 Potassium 3.6 Chloride 103 Carbon Dioxide 24 Anion Gap 10.0 BUN 13 Creatinine 1.0 Estimated GFR (MDRD) 102 Glucose 140 H Calcium 9.6 Total Bilirubin 0.8 AST 32 ALT 38 Alkaline Phosphatase 79 Total Protein 8.3 H Albumin 5.0 Globulin 3.3 Albumin/Globulin Ratio 1.5 Lipase 154 H PD MEDICAL DECISION MAKING - ED course ED course: after numerous doses of antiemetics and pain meds and IVF pt felt better and was able to tolerate PO and said he felt he could try going home - Sepsis Event Vital Signs: Vital Signs - 24 hr 03/15/18 03/15/18 03/15/18 08:45 08:50 09:00 Temperature 36 C L Heart Rate 60 72 78 Respiratory 19 16 16 Rate Blood Pressure 194/123 H 183/136 H 212/127 H O2 Saturation 98 96 95 03/15/18 03/15/18 09:30 10:00 Temperature Heart Rate 55 L 52 L Respiratory 16 16 Rate Blood Pressure 196/105 H 203/109 H O2 Saturation 98 100 Oxygen O2 Source Room air Departure - Departure Disposition: 01 Home, Self Care Clinical Impression: Acute on chronic pancreatitis, Dehydration Cyclical vomiting Qualifiers: Vomiting Intractability: non-intractable Nausea presence: with nausea Qualified Code(s): G43.A0 - Cyclical vomiting, not intractable Abdominal pain Qualifiers: Abdominal location: left lower quadrant Qualified Code(s): R10.32 - Left lower quadrant pain Condition: Good Instructions: ED Abdominal Pain Unkn Cause, ED Dehydration, ED Pancreatitis Comments: Your lipase was mildly elevated again indicating some degree of pancreatitis. Your previous imaging studies show this is not due to gallstones If you drink alcohol please stop Recommend a clear liquid diet for two days to rest your pancreas May take your oral or rectal phenergan as needed for vomiting As we have discussed before, marijuana could be worsening your symptoms and I recommend you cease use - it can take weeks or months to see improvement but I think it will help. Follow up with the [facility] next month as planned Also your blood pressure was high today - likely due to the pain - please follow up with your PMD for a recheck
[2018-03-15] MEDS ORDERED: HALOPERIDOL 5 MG/ML VIAL IVP STA (08:55)
[2018-03-15] MEDS ORDERED: PROMETHAZINE INJ 25 MG in SODIUM CHLORIDE 0.9% 50 ML IV STA (08:55)
[2018-03-15] MEDS ORDERED: SODIUM CHLORIDE 0.9% 2,000 ML IV ONE (08:55)
[2018-03-15 09:23] LABS: BASOPHILS # (AUTO) 0.1 10^3/uL (0.0-0.1); BASOPHILS % (AUTO) 0.8 %; EOSINOPHILS # (AUTO) 0.2 10^3/uL (0.0-0.7); EOSINOPHILS % (AUTO) 2.7 %; HGB - HEMOGLOBIN 15.1 g/dL (14.0-18.0); LYMPHOCYTES # (AUTO) 1.7 10^3/uL (1.5-3.5); LYMPHOCYTES % (AUTO) 22.6 %; MEAN CORPUSCULAR HEMOGLOBIN 27.1 pg (27.0-31.0); MEAN CORPUSCULAR HGB CONC 33.2 g/dL (32.0-36.0); MEAN CORPUSCULAR VOLUME 81.5 fL (80.0-94.0); MEAN PLATELET VOLUME 7.3 fL (7.4-11.4); MONOCYTES # (AUTO) 0.6 10^3/uL (0.0-1.0); MONOCYTES % (AUTO) 7.2 %; NEUTROPHILS # (AUTO) 5.1 10^3/uL (1.5-6.6); NEUTROPHILS % (AUTO) 66.7 %; PLT - PLATELET COUNT 266 10^3/uL (130-450); RED BLOOD COUNT 5.57 10^6/uL (4.70-6.10); RED CELL DISTRIBUTION WIDTH 14.2 % (12.0-15.0); WHITE BLOOD COUNT 7.7 x10^3/uL (4.8-10.8)
[2018-03-15 09:39] LABS: ALBUMIN/GLOBULIN RATIO 1.5 (1.0-2.2); BILIRUBIN,TOTAL 0.8 mg/dL (0.2-1.0); CALCIUM 9.6 mg/dL (8.5-10.3); TOTAL PROTEIN 8.3 g/dL (6.7-8.2)
[2018-03-15] MEDS ORDERED: KETOROLAC 60 MG/2 ML VIAL IVP STA (09:53)
[2018-03-15] MEDS ORDERED: PROMETHAZINE INJ 12.5 MG in SODIUM CHLORIDE 0.9% 50 ML IV STA ×2 (09:53→10:47)
[2018-03-15] MEDS ORDERED: ACETAMINOPHEN 1,000 MG/100 ML 100 ML IV STA (10:46)
[2018-03-15 13:24] VITALS: BP 179/95
== END 2018-03-15 13:05 | disposition home or self-care (01) ==
LOC: EDUNIT# → ED 08:45
DX: K85.90 Acute pancreatitis without necrosis or infection, unspecified (principal); K86.1 Other chronic pancreatitis; E86.0 Dehydration; G43.A0 Cyclical vomiting, in migraine, not intractable; I10 Essential (primary) hypertension; F17.200 Nicotine dependence, unspecified, uncomplicated
CPT/HCPCS: 36415; 80053; 83690; 85025; 96365; 96375; 99283; 99284; J0131; J7040

== ENCOUNTER 2018-05-17 19:23 | Outpatient (CLI) | payer MEDICAID | END 2018-05-17 19:24 | disposition critical access hospital (66) | LOC: EMS 19:23 | PROVIDERS: ATTEND Surgery | DX: R10.9 Unspecified abdominal pain (principal); R11.2 Nausea with vomiting, unspecified | CPT/HCPCS: A0425; A0427; A0999 ==

== ENCOUNTER 2018-05-17 19:43 | Emergency (ER) | payer MEDICAID ==
[2018-05-17] MEDS ORDERED: PROMETHAZINE INJ 25 MG in SODIUM CHLORIDE 0.9% 50 ML IV STA (19:53)
[2018-05-17] MEDS ORDERED: HALOPERIDOL 5 MG/ML VIAL IVP STA (19:53)
[2018-05-17] MEDS ORDERED: SODIUM CHLORIDE 0.9% 1,000 ML IV STA (19:53)
--- NOTE | 2018-05-17 20:06 | ED Physician Documentation ---
PD HPI ABD PAIN - Stated complaint Stated Complaint: ABD PAIN - Chief complaint Chief Complaint: Abd Pain - History obtained from History obtained from: Patient, EMS - History of Present Illness Timing - onset: How many days ago (4) Timing - duration: Days (4) Timing - details: Gradual onset Pain level max: 6 Pain level now: 3 Quality: Cramping Location: Epigastric Radiation: No: Chest, , Lower back, Left flank, Left shoulder, Right flank, Right shoulder, Upper back Improved by: Other (nothing) Worsened by: Eating Associated symptoms: Nausea, Vomiting. No: Fever, Hematemesis, Diarrhea, Constipation, Melena, Hematochezia, Dysuria, Hematuria, Chest pain, Dizzy Similar symptoms before: Diagnosis (chronic abd pain, vomiting) Recently seen: Not recently seen Review of Systems Ten Systems: 10 systems reviewed and negative Constitutional: denies: Fever, Chills Nose: denies: Rhinorrhea / runny nose, Congestion Throat: denies: Sore throat Cardiac: denies: Chest pain / pressure Respiratory: denies: Cough : denies: Dysuria Skin: denies: Rash Musculoskeletal: denies: Neck pain, Back pain Neurologic: denies: Headache PD PAST MEDICAL HISTORY - Past Medical History Cardiovascular: Hypertension Respiratory: None Neuro: None Endocrine/Autoimmune: None GI: Pancreatitis : None HEENT: None Psych: Depression, Anxiety, Other Musculoskeletal: None Derm: None - Past Surgical History Past Surgical History: Yes Ortho: Other - Present Medications Home Medications: Ambulatory Orders Medication Instructions Recorded Confirmed Promethazine [Phenergan] 25 mg PO Q6H PRN #10 tab 12/10/17 02/13/18 Omeprazole 40 mg PO QPM 02/09/18 02/13/18 - Allergies Allergies/Adverse Reactions: Allergies Allergy/AdvReac Type Severity Reaction Status Date / Time morphine Allergy Hives Verified 05/17/18 19:49 - Social History Does the pt smoke?: Yes Smoking Status: Current every day smoker Does the pt drink ETOH?: No Does the pt have substance abuse?: Yes - Immunizations Immunizations are current?: No - POLST Patient has POLST: No POLST Status: Full Code PD ED PE NORMAL - Vitals Vital signs reviewed: Yes - General General: Alert and oriented X 3, No acute distress - HEENT HEENT: Moist mucous membranes - Neck Neck: Supple, no meningeal sign - Cardiac Cardiac: RRR - Respiratory Respiratory: No respiratory distress, Clear bilaterally - Abdomen Abdomen: Soft, Non tender, Non distended - Derm Derm: Warm and dry, No rash - Extremities Extremities: No edema - Neuro Neuro: Alert and oriented X 3 - Psych Psych: Normal mood, Normal affect Results - Vitals Vitals: Vital Signs - 24 hr 05/17/18 05/17/18 05/17/18 19:46 22:01 22:49 Temperature 36.9 C Heart Rate 61 40 L 40 L Respiratory 16 16 16 Rate Blood Pressure 130/80 102/61 96/62 O2 Saturation 96 99 98 05/17/18 23:31 Temperature Heart Rate 51 L Respiratory 16 Rate Blood Pressure 102/71 O2 Saturation 98 Oxygen O2 Source Room air - Labs Labs: Laboratory Tests 05/17/18 05/17/18 21:16 21:16 WBC 4.9 RBC 4.86 Hgb 13.2 L Hct 40.9 L MCV 84.1 MCH 27.1 MCHC 32.3 RDW 14.7 Plt Count 258 MPV 7.5 Neut # (Auto) 3.4 Lymph # (Auto) 0.9 L [place] # (Auto) 0.4 Eos # (Auto) 0.2 Baso # (Auto) 0.1 Absolute Nucleated RBC 0.00 Nucleated RBC % 0.0 Sodium 141 Potassium 4.0 Chloride 107 Carbon Dioxide 26 Anion Gap 8.0 BUN 16 Creatinine 0.9 Estimated GFR (MDRD) 115 Glucose 94 Calcium 8.9 Total Bilirubin 0.5 AST 22 ALT 28 Alkaline Phosphatase 57 Total Protein 6.8 Albumin 4.1 Globulin 2.7 Albumin/Globulin Ratio 1.5 Lipase 49 PD MEDICAL DECISION MAKING - ED course Complexity details: reviewed old records, reviewed results, re-evaluated patient, considered differential, d/w patient ED course: 37-year-old male with what appears to be cannabinoid-induced hyperemesis. Given Haldol, Phenergan and Benadryl. Symptoms resolved and is tolerating p.o. without difficulty. His heart rate did decrease down to 40 while in the emergency department, he states that this is normal for him when he is tired and it is nighttime. He was monitored further in the emergency department until his heart rate did climb back into the 50s which has been present on multiple visits in the past. Encourage the patient to quit using marijuana. Patient counseled regarding signs and symptoms for which I believe and urgent re- evaluation would be necessary. Patient with good understanding of and agreement to plan and is comfortable going home at this time This document was made in part using voice recognition software. While efforts are made to proofread this document, sound alike and grammatical errors may occur. Departure - Departure Disposition: 01 Home, Self Care Clinical Impression: Cannabinoid hyperemesis syndrome Abdominal pain Qualifiers: Abdominal location: generalized Qualified Code(s): R10.84 - Generalized abdominal pain Vomiting Qualifiers: Vomiting type: unspecified Vomiting Intractability: non-intractable Nausea presence: with nausea Qualified Code(s): R11.2 - Nausea with vomiting, unspecified Condition: Good Instructions: ED Diet Vomiting Diarrhea Follow-Up: Kristin Hansen ARNP [Primary Care Provider] - Within 1 week Comments: Follow up with your doctor for further care. You should try refraining from marijuana and see if this helps your symptoms. You can talk to your doctor about other appetite stimulants. Discharge Date/Time: 05/17/18 23:40
[2018-05-17] MEDS ORDERED: diphenhydrAMINE INJ 50 MG/ML VIAL IVP STA (20:47)
[2018-05-17 21:25] LABS: BASOPHILS # (AUTO) 0.1 10^3/uL (0.0-0.1); BASOPHILS % (AUTO) 1.1 %; EOSINOPHILS # (AUTO) 0.2 10^3/uL (0.0-0.7); EOSINOPHILS % (AUTO) 3.1 %; HGB - HEMOGLOBIN 13.2 g/dL (14.0-18.0); LYMPHOCYTES # (AUTO) 0.9 10^3/uL (1.5-3.5); LYMPHOCYTES % (AUTO) 18.9 %; MEAN CORPUSCULAR HEMOGLOBIN 27.1 pg (27.0-31.0); MEAN CORPUSCULAR HGB CONC 32.3 g/dL (32.0-36.0); MEAN CORPUSCULAR VOLUME 84.1 fL (80.0-94.0); MEAN PLATELET VOLUME 7.5 fL (7.4-11.4); MONOCYTES # (AUTO) 0.4 10^3/uL (0.0-1.0); MONOCYTES % (AUTO) 8.8 %; NEUTROPHILS # (AUTO) 3.4 10^3/uL (1.5-6.6); NEUTROPHILS % (AUTO) 68.1 %; PLT - PLATELET COUNT 258 10^3/uL (130-450); RED BLOOD COUNT 4.86 10^6/uL (4.70-6.10); RED CELL DISTRIBUTION WIDTH 14.7 % (12.0-15.0); WHITE BLOOD COUNT 4.9 x10^3/uL (4.8-10.8)
[2018-05-17 21:36] LABS: ALBUMIN 4.1 g/dL (3.2-5.5); ALBUMIN/GLOBULIN RATIO 1.5 (1.0-2.2); BILIRUBIN,TOTAL 0.5 mg/dL (0.2-1.0); CALCIUM 8.9 mg/dL (8.5-10.3); CREATININE 0.9 mg/dL (0.6-1.2); TOTAL PROTEIN 6.8 g/dL (6.7-8.2)
[2018-05-17 23:31] VITALS: BP 102/71
== END 2018-05-17 23:40 | disposition home or self-care (01) ==
LOC: EDUNIT# → ED 19:43
DX: T40.7X1A Poisoning by cannabis (derivatives), accidental (unintentional), initial encounter (principal); R11.2 Nausea with vomiting, unspecified; R10.84 Generalized abdominal pain; F12.90 Cannabis use, unspecified, uncomplicated; I10 Essential (primary) hypertension; F17.200 Nicotine dependence, unspecified, uncomplicated
CPT/HCPCS: 36415; 80053; 83690; 85025; 96361; 96374; 96375; 99283; J1200; J7040

== ENCOUNTER 2018-05-18 20:42 | Outpatient (CLI) | payer MEDICAID | END 2018-05-18 20:43 | disposition critical access hospital (66) | LOC: EMS 20:42 | PROVIDERS: ATTEND Surgery | DX: R11.2 Nausea with vomiting, unspecified (principal); R10.12 Left upper quadrant pain | CPT/HCPCS: A0425; A0427; A0999 ==

== ENCOUNTER 2018-05-18 21:16 | Emergency (ER) | payer MEDICAID ==
[2018-05-18 21:47] LABS: ALBUMIN 4.5 g/dL (3.2-5.5); ALBUMIN/GLOBULIN RATIO 1.4 (1.0-2.2); BILIRUBIN,TOTAL 0.8 mg/dL (0.2-1.0); CALCIUM 9.4 mg/dL (8.5-10.3); CREATININE 0.9 mg/dL (0.6-1.2); TOTAL PROTEIN 7.8 g/dL (6.7-8.2)
[2018-05-18 21:52] LABS: BASOPHILS % (AUTO) 0.5 %; EOSINOPHILS % (AUTO) 0.1 %; HGB - HEMOGLOBIN 14.8 g/dL (14.0-18.0); LYMPHOCYTES # (AUTO) 0.5 10^3/uL (1.5-3.5); LYMPHOCYTES % (AUTO) 5.5 %; MEAN CORPUSCULAR HEMOGLOBIN 27.1 pg (27.0-31.0); MEAN CORPUSCULAR HGB CONC 32.4 g/dL (32.0-36.0); MEAN CORPUSCULAR VOLUME 83.8 fL (80.0-94.0); MEAN PLATELET VOLUME 7.3 fL (7.4-11.4); MONOCYTES # (AUTO) 0.6 10^3/uL (0.0-1.0); MONOCYTES % (AUTO) 6.3 %; NEUTROPHILS # (AUTO) 8.5 10^3/uL (1.5-6.6); NEUTROPHILS % (AUTO) 87.6 %; PLT - PLATELET COUNT 291 10^3/uL (130-450); RED BLOOD COUNT 5.46 10^6/uL (4.70-6.10); RED CELL DISTRIBUTION WIDTH 14.7 % (12.0-15.0); WHITE BLOOD COUNT 9.7 x10^3/uL (4.8-10.8)
[2018-05-18] MEDS ORDERED: PROMETHAZINE INJ 25 MG in SODIUM CHLORIDE 0.9% 50 ML IV STA (22:28)
[2018-05-18] MEDS ORDERED: LORazepam 2 MG/ML VIAL IVP STA (22:28)
[2018-05-18] MEDS ORDERED: SODIUM CHLORIDE 0.9% 1,000 ML IV ONE (22:28)
--- NOTE | 2018-05-18 22:31 | ED Physician Documentation ---
PD HPI NVD - Stated complaint Stated Complaint: N/V - Chief complaint Chief Complaint: Abd Pain - History obtained from History obtained from: Patient - History of Present Illness Timing - onset: How many days ago (3) Timing - duration: Days (3) Timing - details: Gradual onset, Still present Associated symptoms: Abdominal pain Contributing factors: Other (cannabis use) Improved by: Vomiting Similar symptoms before: Diagnosis (cannabis hyperemesis syndrome) Recently seen: No: Emergency Dept - Additonal information Additional information: 37-year-old male with a history of cyclic vomiting has been diagnosed with cannabis hyperemesis syndrome and he does acknowledge smoking frequently and having relief with the use of frequent bathing. He does not think that he is experiencing this because he feels that sometimes he gets relief of his nausea with the use of cannabis and he believes that his symptoms of cyclical vomiting began prior to using cannabis. Patient was seen in the emerge department last night for vomiting was given Haldol and Phenergan and he states that he went home and vomited bile most of the night. He was given 2 L of saline yesterday. He feels the Haldol causes significant amount of anxiety for him and he requests we not administer this tonight. Review of Systems Constitutional: denies: Fever Eyes: denies: Decreased vision Ears: denies: Ear pain Nose: denies: Rhinorrhea / runny nose, Congestion Throat: denies: Dental pain / toothache Cardiac: denies: Chest pain / pressure, Palpitations Respiratory: denies: Dyspnea, Cough GI: reports: Abdominal Pain, Nausea, Vomiting. denies: Constipation, Diarrhea : denies: Dysuria, Frequency PD PAST MEDICAL HISTORY - Past Medical History Past Medical History: Yes Cardiovascular: Hypertension Respiratory: None Neuro: None Endocrine/Autoimmune: None GI: Pancreatitis : None HEENT: None Psych: Depression, Anxiety, Other Musculoskeletal: None Derm: None Other Past Medical History: narcolepsy - Past Surgical History Past Surgical History: Yes Ortho: Other - Present Medications Home Medications: Ambulatory Orders Medication Instructions Recorded Confirmed Promethazine [Phenergan] 25 mg PO Q6H PRN #10 tab 12/10/17 02/13/18 Omeprazole 40 mg PO QPM 02/09/18 02/13/18 - Allergies Allergies/Adverse Reactions: Allergies Allergy/AdvReac Type Severity Reaction Status Date / Time morphine Allergy Hives Verified 05/17/18 19:49 - Social History Does the pt smoke?: Yes Smoking Status: Current every day smoker Does the pt drink ETOH?: No Does the pt have substance abuse?: No Substance Use and Type: Marijuana - Immunizations Immunizations are current?: Yes - POLST Patient has POLST: No POLST Status: Full Code PD ED PE NORMAL - Vitals Vital signs reviewed: Yes (normal ) - General General: Alert and oriented X 3, No acute distress, Well developed/nourished - HEENT HEENT: Atraumatic, PERRL, EOMI - Neck Neck: Supple, no meningeal sign - Cardiac Cardiac: RRR, No murmur - Respiratory Respiratory: No respiratory distress, Clear bilaterally - Abdomen Abdomen: Soft, Non tender - Back Back: No CVA TTP, No spinal TTP - Derm Derm: Normal color, Warm and dry, No rash - Extremities Extremities: No deformity, No edema - Neuro Neuro: Alert and oriented X 3, liaison planner 2-12 intact, No motor deficit, No sensory deficit, Normal speech Eye Opening: Spontaneous Motor: Obeys Commands Verbal: Oriented GCS Score: 15 - Psych Psych: Normal mood, Other (affect is flat) Results - Vitals Vitals: Vital Signs - 24 hr 05/18/18 05/18/18 21:17 23:38 Temperature 37.5 C Heart Rate 68 57 L Respiratory 18 18 Rate Blood Pressure 120/77 129/52 L O2 Saturation 97 98 Oxygen O2 Source Room air - Labs Labs: Laboratory Tests 05/18/18 05/18/18 21:31 21:31 WBC 9.7 RBC 5.46 Hgb 14.8 Hct 45.7 MCV 83.8 MCH 27.1 MCHC 32.4 RDW 14.7 Plt Count 291 MPV 7.3 L Neut # (Auto) 8.5 H Lymph # (Auto) 0.5 L [place] # (Auto) 0.6 Eos # (Auto) 0.0 Baso # (Auto) 0.0 Absolute Nucleated RBC 0.00 Nucleated RBC % 0.0 Sodium 139 Potassium 3.9 Chloride 104 Carbon Dioxide 25 Anion Gap 10.0 BUN 21 H Creatinine 0.9 Estimated GFR (MDRD) 115 Glucose 125 H Calcium 9.4 Total Bilirubin 0.8 AST 23 ALT 29 Alkaline Phosphatase 64 Total Protein 7.8 Albumin 4.5 Globulin 3.3 Albumin/Globulin Ratio 1.4 Lipase 38 Procedures - IVC sono (time) 2219 Bedside IVC sono: IVC measures (cm) (1.46), IVC collapsed c insp (cm) (complete), Dehydration (less than one liter.) PD MEDICAL DECISION MAKING - ED course Complexity details: reviewed old records, reviewed results, re-evaluated patient, considered differential, d/w patient ED course: 37-year-old male with a history of cannabis hyperemesis syndrome has developed vomiting again in a cyclical fashion and he was seen in the emerge department yesterday administered 2 L of saline and Haldol and Phenergan and was unable to hold down the Phenergan to keep himself from being nauseous last night. He returns to the emergency department today with persistent vomiting. He is found to be nearly adequately hydrated on interrogation of the inferior vena cava and he is administered a single liter of saline tonight. He is also administered Phenergan and Ativan. At his request we have not provided Haldol. Departure - Departure Disposition: 01 Home, Self Care Clinical Impression: Cannabinoid hyperemesis syndrome Condition: Stable Instructions: ED Diet Vomiting Diarrhea Follow-Up: Kristin Hansen ARNP [Primary Care Provider] -
[2018-05-19 00:46] VITALS: BP 110/60
== END 2018-05-19 00:46 | disposition home or self-care (01) ==
LOC: EDUNIT# → ED 21:16
DX: T40.7X1A Poisoning by cannabis (derivatives), accidental (unintentional), initial encounter (principal); R11.2 Nausea with vomiting, unspecified; F12.90 Cannabis use, unspecified, uncomplicated; I10 Essential (primary) hypertension; F17.200 Nicotine dependence, unspecified, uncomplicated
CPT/HCPCS: 36415; 80053; 83690; 85025; 96365; 96375; 99283; J2060; J7040

== ENCOUNTER 2018-05-19 15:11 | Outpatient (CLI) | payer MEDICAID | END 2018-05-19 15:12 | disposition short-term general hospital (02) | LOC: EMS 15:11 | PROVIDERS: ATTEND Surgery | DX: R10.9 Unspecified abdominal pain (principal); R11.2 Nausea with vomiting, unspecified | CPT/HCPCS: A0425; A0429; A0888; A0999 ==

== ENCOUNTER 2018-05-20 08:40 | Outpatient (CLI) | payer MEDICAID | END 2018-05-20 08:41 | disposition critical access hospital (66) | LOC: EMS 08:40 | PROVIDERS: ATTEND Surgery | DX: R11.2 Nausea with vomiting, unspecified (principal) | CPT/HCPCS: A0425; A0427; A0999 ==

== ENCOUNTER 2018-05-20 08:59 | Emergency (ER) | payer MEDICAID ==
[2018-05-20] MEDS ORDERED: SODIUM CHLORIDE 0.9% 1,000 ML IV ONE (09:04)
[2018-05-20] MEDS ORDERED: ONDANSETRON 4 MG/2 ML VIAL IVP STA (09:04)
[2018-05-20] MEDS ORDERED: PROMETHAZINE INJ 25 MG in SODIUM CHLORIDE 0.9% 50 ML IV STA (09:15)
[2018-05-20] MEDS ORDERED: diphenhydrAMINE INJ 50 MG/ML VIAL IVP STA (09:15)
[2018-05-20 09:27] LABS: BASOPHILS # (AUTO) 0.2 10^3/uL (0.0-0.1); BASOPHILS % (AUTO) 2.2 %; EOSINOPHILS % (AUTO) 0.2 %; LYMPHOCYTES # (AUTO) 0.8 10^3/uL (1.5-3.5); LYMPHOCYTES % (AUTO) 8.8 %; MEAN CORPUSCULAR HEMOGLOBIN 27.4 pg (27.0-31.0); MEAN CORPUSCULAR HGB CONC 33.2 g/dL (32.0-36.0); MEAN CORPUSCULAR VOLUME 82.6 fL (80.0-94.0); MEAN PLATELET VOLUME 7.6 fL (7.4-11.4); MONOCYTES # (AUTO) 0.7 10^3/uL (0.0-1.0); MONOCYTES % (AUTO) 7.5 %; NEUTROPHILS # (AUTO) 7.3 10^3/uL (1.5-6.6); NEUTROPHILS % (AUTO) 81.3 %; PLT - PLATELET COUNT 273 10^3/uL (130-450); RED BLOOD COUNT 5.46 10^6/uL (4.70-6.10); RED CELL DISTRIBUTION WIDTH 14.5 % (12.0-15.0)
[2018-05-20 09:30] LABS: ALBUMIN 4.7 g/dL (3.2-5.5); ALBUMIN/GLOBULIN RATIO 1.6 (1.0-2.2); ALKALINE PHOSPHATASE 68 IU/L (42-121); ALT ALANINE AMINOTRANSFERASE 28 IU/L (10-60); AST ASPARTATE AMINOTRANSFERASE 19 IU/L (10-42); BILIRUBIN,TOTAL 1.3 mg/dL (0.2-1.0); BUN - BLOOD UREA NITROGEN 25 mg/dL (6-20); CALCIUM 9.5 mg/dL (8.5-10.3); CARBON DIOXIDE - CO2 26 mmol/L (21-32); CHLORIDE 102 mmol/L (101-111); CREATININE 0.9 mg/dL (0.6-1.2); GFR - MDRD 115 (>89); GLUCOSE 113 mg/dL (70-100); LIPASE 29 U/L (22-51); SODIUM 138 mmol/L (135-145); TOTAL PROTEIN 7.6 g/dL (6.7-8.2)
[2018-05-20 10:09] VITALS: BP 125/72
--- NOTE | 2018-05-20 10:48 | ED Physician Documentation ---
History of Present Illness - Stated complaint Stated Complaint: N/V - Chief complaint Chief Complaint: Abd Pain - Additonal information Additional information: 37-year-old male with a history of chronic nausea vomiting and chronic epigastric pain returns to the emergency department for reevaluation of chronic pain and nausea and vomiting. The patient denies any acute symptoms today. The patient has had no relief with his home medications. The patient has had over 48 visits to numerous emergency departments for the same symptoms. The patient denies new or different symptoms. Symptoms are described as moderate. No blood in the vomit or stools. No fevers or chills. Symptoms are described as moderate. No other associated symptoms. Review of Systems Constitutional: denies: Fever, Chills Eyes: denies: Discharge Ears: denies: Ear pain Nose: denies: Congestion Throat: denies: Oral lesions / sores Cardiac: denies: Chest pain / pressure Respiratory: denies: Cough GI: reports: Abdominal Pain, Nausea, Vomiting. denies: Bloody / black stool : denies: Dysuria Skin: denies: Rash Musculoskeletal: denies: Neck pain Neurologic: denies: Generalized weakness PD PAST MEDICAL HISTORY - Past Medical History Cardiovascular: Hypertension Respiratory: None Neuro: None Endocrine/Autoimmune: None GI: Pancreatitis : None HEENT: None Psych: Depression, Anxiety, Other Musculoskeletal: None Derm: None - Past Surgical History Past Surgical History: Yes Ortho: Other - Present Medications Home Medications: Ambulatory Orders Medication Instructions Recorded Confirmed Promethazine [Phenergan] 25 mg PO Q6H PRN #10 tab 12/10/17 02/13/18 Omeprazole 40 mg PO QPM 02/09/18 02/13/18 Promethazine Supp [Phenergan Supp] 25 mg MN Q8HR PRN #20 supp 05/20/18 - Allergies Allergies/Adverse Reactions: Allergies Allergy/AdvReac Type Severity Reaction Status Date / Time morphine Allergy Hives Verified 05/20/18 09:03 - Social History Does the pt smoke?: Yes Smoking Status: Current every day smoker Does the pt drink ETOH?: No Does the pt have substance abuse?: No - Immunizations Immunizations are current?: Yes - POLST Patient has POLST: No POLST Status: Full Code PD ED PE NORMAL - General General: Alert and oriented X 3, No acute distress - HEENT HEENT: Atraumatic, PERRL, EOMI, Ears normal - Neck Neck: Supple, no meningeal sign - Cardiac Cardiac: RRR, Strong equal pulses - Respiratory Respiratory: No respiratory distress, Clear bilaterally - Abdomen Abdomen: Soft, Non distended. No: Non tender (The patient has tenderness in the epigastrium, no rebound or peritoneal signs) - Derm Derm: Normal color - Extremities Extremities: No deformity, No tenderness to palpate, Normal ROM s pain - Neuro Neuro: Alert and oriented X 3, Normal speech - Psych Psych: Normal affect Results - Vitals Vitals: Vital Signs - 24 hr 05/20/18 05/20/18 09:00 10:08 Temperature 36.9 C Heart Rate 68 53 L Respiratory 15 14 Rate Blood Pressure 142/100 H 125/72 O2 Saturation 98 100 Oxygen O2 Source Room air - Labs Labs: Laboratory Tests 05/20/18 05/20/18 09:11 09:11 WBC 9.0 RBC 5.46 Hgb 15.0 Hct 45.1 MCV 82.6 MCH 27.4 MCHC 33.2 RDW 14.5 Plt Count 273 MPV 7.6 Neut # (Auto) 7.3 H Lymph # (Auto) 0.8 L [place] # (Auto) 0.7 Eos # (Auto) 0.0 Baso # (Auto) 0.2 H Absolute Nucleated RBC 0.00 Nucleated RBC % 0.0 Sodium 138 Potassium 3.6 Chloride 102 Carbon Dioxide 26 Anion Gap 10.0 BUN 25 H Creatinine 0.9 Estimated GFR (MDRD) 115 Glucose 113 H Calcium 9.5 Total Bilirubin 1.3 H AST 19 ALT 28 Alkaline Phosphatase 68 Total Protein 7.6 Albumin 4.7 Globulin 2.9 Albumin/Globulin Ratio 1.6 Lipase 29 Ethyl Alcohol < 5.0 PD MEDICAL DECISION MAKING - ED course ED course: The patient's lab work is unremarkable, on reevaluation the patient is resting comfortably and appears to be in no significant distress. Presently, the patient's symptoms seem to be secondary to his chronic underlying conditions and now his symptoms are under control. Presently, there is no findings that would necessitate further workup in the emergency department or further imaging. The patient appears appropriate for discharge and ongoing outpatient management. I discussed warning signs and recommended returning to the emergency department immediately for any worsening or concerns. Departure - Departure Disposition: 01 Home, Self Care Clinical Impression: Chronic abdominal pain Nausea & vomiting Qualifiers: Vomiting type: unspecified Vomiting Intractability: unspecified Qualified Code(s): R11.2 - Nausea with vomiting, unspecified Condition: Good Instructions: Abdominal Pain, ED Nausea Vomiting Ch Follow-Up: Kristin Hansen ARNP [Primary Care Provider] - Within 3 Days Prescriptions: Promethazine Supp [Phenergan Supp] 25 mg MN Q8HR PRN #20 supp PRN Reason: Nausea / Vomiting Comments: Please return to the emergency department for worsening symptoms or any concerns.
[2018-05-20] MEDS ORDERED: METOCLOPRAMIDE 10 MG/2 ML VIAL IVP STA (11:02)
== END 2018-05-20 11:27 | disposition home or self-care (01) ==
LOC: EDUNIT# → ED 08:59
DX: G89.29 Other chronic pain (principal); R11.2 Nausea with vomiting, unspecified; I10 Essential (primary) hypertension; F17.200 Nicotine dependence, unspecified, uncomplicated
CPT/HCPCS: 36415; 80053; 80320; 83690; 85025; 96365; 96375; 99283

== ENCOUNTER 2018-05-20 19:53 | Outpatient (CLI) | payer MEDICAID | END 2018-05-20 19:54 | disposition critical access hospital (66) | LOC: EMS 19:53 | PROVIDERS: ATTEND Surgery | DX: R10.12 Left upper quadrant pain (principal); R11.2 Nausea with vomiting, unspecified | CPT/HCPCS: A0425; A0429 ==

== ENCOUNTER 2018-05-20 20:11 | Emergency (ER) | payer MEDICAID ==
--- NOTE | 2018-05-20 20:29 | ED Physician Documentation ---
PD HPI NVD - Stated complaint Stated Complaint: N/V - Chief complaint Chief Complaint: Abd Pain - History obtained from History obtained from: Patient - History of Present Illness Timing - onset: How many days ago (He has been having abdominal pain with nausea and vomiting for 3-4 days now. He is improved with medications. He has had 2 prior visits to his the ER with medications and has had improvement with those but return of symptoms later in the day. He has had similar episodes in the past multiple times from cyclic vomiting. He has a remote history of pancreatitis and ulcers. Currently the episodes have not associated with elevated lipase and he has not had improvement with GI cocktails. His pattern does seem to be more cannabis induced at this time for the last multiple visits.) Timing - duration: Days Timing - details: Abrupt onset, Still present, Waxing and waning Associated symptoms: Abdominal pain, Loss of appetite. No: Fever, Near syncope / syncope Contributing factors: Other (He states he only does indicate occasional cannabis use at this time and not regular.). No: Sick contact, Bad food, Travel, Recent antibiotics Improved by: No: Eating, Vomiting Worsened by: Eating Similar symptoms before: Diagnosis (Previously pancreatitis and ulcers but more currently seems to be likely cannabis induced hyperemesis by the pattern and symptoms.) Recently seen: Emergency Dept (He was seen earlier in the day today for this and received some medication with partial improvement but he states he was still feeling nauseous at the time of discharge. He was seen a couple of days before that with IV medications that had better improvement at the time.) Review of Systems Constitutional: denies: Fever, Chills Nose: denies: Rhinorrhea / runny nose, Congestion Throat: denies: Sore throat Respiratory: denies: Cough GI: reports: Abdominal Pain (upper), Nausea, Vomiting. denies: Constipation, Diarrhea, Hematemesis, Bloody / black stool Neurologic: reports: Generalized weakness. denies: Focal weakness, Numbness, Near syncope PD PAST MEDICAL HISTORY - Past Medical History Past Medical History: Yes Cardiovascular: Hypertension Respiratory: None Neuro: None Endocrine/Autoimmune: None GI: Pancreatitis : None HEENT: None Psych: Depression, Anxiety, Other Musculoskeletal: None Derm: None - Past Surgical History Past Surgical History: Yes Ortho: Other - Present Medications Home Medications: Ambulatory Orders Medication Instructions Recorded Confirmed Promethazine [Phenergan] 25 mg PO Q6H PRN #10 tab 12/10/17 02/13/18 Omeprazole 40 mg PO QPM 02/09/18 02/13/18 Amitriptyline [Elavil] 25 mg PO HS #45 tablet 05/20/18 Promethazine Supp [Phenergan Supp] 25 mg OR Q8HR PRN #20 supp 05/20/18 Promethazine [Phenergan] 25 - 50 mg PO Q6H PRN #30 tab 05/20/18 - Allergies Allergies/Adverse Reactions: Allergies Allergy/AdvReac Type Severity Reaction Status Date / Time morphine Allergy Hives Verified 05/20/18 20:15 - Social History Does the pt smoke?: Yes Smoking Status: Current every day smoker Does the pt drink ETOH?: No Does the pt have substance abuse?: No Substance Use and Type: Marijuana - Immunizations Immunizations are current?: Yes - POLST Patient has POLST: No POLST Status: Full Code PD ED PE NORMAL - Vitals Vital signs reviewed: Yes - General General: Alert and oriented X 3, Well developed/nourished, Other (appears anxious and in pain) - HEENT HEENT: Pharynx benign - Neck Neck: Supple, no meningeal sign, No adenopathy - Cardiac Cardiac: RRR, No murmur - Respiratory Respiratory: Clear bilaterally - Abdomen Abdomen: Soft, Non distended, No organomegaly, Other (tender upper abd with guarding. ) - Derm Derm: Normal color, Warm and dry Results - Vitals Vitals: Vital Signs - 24 hr 05/20/18 05/20/18 05/20/18 20:11 20:23 21:21 Temperature 37.4 C Heart Rate 71 81 Respiratory 18 16 Rate Blood Pressure 199/134 H 191/126 H 150/90 H O2 Saturation 98 97 05/20/18 22:03 Temperature Heart Rate 58 L Respiratory 14 Rate Blood Pressure 105/65 O2 Saturation 95 Oxygen O2 Source Room air PD MEDICAL DECISION MAKING - ED course Complexity details: reviewed old records (The patient was requesting IV pain medications in addition to the nausea medicines. As told him I believed we were not giving him pain medicines regularly. He states he does get them regularly on the visits. I reviewed prior charts and medication record in the last narcotic dose he got was February 15 and had had several visits since and multiple visits before without narcotics as well. It seems Ativan Haldol and promethazine seem to have the best effectiveness and will target medications that way.), reviewed results (Seen this morning with labs done then and I did not see need to repeat blood tests on this visit. They had been normal earlier.), re-evaluated patient (He is sleeping and appears comfortable. He states he still has some abdominal pain. However he is not vomiting at this time. I feel he is stable and safe for discharge.), considered differential, d/w patient Departure - Departure Clinical Impression: Hyperemesis Nausea & vomiting Qualifiers: Vomiting type: unspecified Vomiting Intractability: non-intractable Qualified Code(s): R11.2 - Nausea with vomiting, unspecified Condition: Stable Record reviewed to determine appropriate education?: Yes Follow-Up: Kristin Hansen ARNP [Primary Care Provider] - Prescriptions: Promethazine Supp [Phenergan Supp] 25 mg OR Q8HR PRN #20 supp PRN Reason: Nausea / Vomiting Amitriptyline [Elavil] 25 mg PO HS #45 tablet Promethazine [Phenergan] 25 - 50 mg PO Q6H PRN #30 tab PRN Reason: Nausea / Vomiting Comments: A reference on cyclic vomiting states that amitriptyline nightly may reduce the frequency of the episodes. I would have you start with Elavil 25 mg nightly for a week and then increase that to 50 mg nightly. Follow-up with your primary care. Use promethazine if needed for nausea.
[2018-05-20] MEDS ORDERED: SODIUM CHLORIDE 0.9% 1,000 ML IV ONE (20:47)
[2018-05-20] MEDS ORDERED: HALOPERIDOL 5 MG/ML VIAL IVP ONE (20:47)
[2018-05-20] MEDS ORDERED: PROMETHAZINE INJ 25 MG in SODIUM CHLORIDE 0.9% 50 ML IV STA (20:47)
[2018-05-20] MEDS ORDERED: LORazepam 2 MG/ML VIAL IVP STA (20:58)
[2018-05-20] MEDS ORDERED: diphenhydrAMINE INJ 50 MG/ML VIAL IVP STA (21:11)
[2018-05-20] MEDS ORDERED: DEXAMETHASONE 10 MG/ML VIAL IVP STA (21:11)
[2018-05-20 22:04] VITALS: BP 105/65
== END 2018-05-20 23:27 | disposition home or self-care (01) ==
LOC: EDUNIT# → EDSEX → ED 20:11
DX: R11.2 Nausea with vomiting, unspecified (principal); G89.29 Other chronic pain; I10 Essential (primary) hypertension; F17.200 Nicotine dependence, unspecified, uncomplicated
CPT/HCPCS: 36415; 80053; 80320; 83690; 85025; 96365; 96375; 99283; J1200; J2060; J2765; J7040

== ENCOUNTER 2018-05-23 13:18 | Outpatient (CLI) | payer MEDICAID | END 2018-05-23 13:19 | disposition critical access hospital (66) | LOC: EMS 13:18 | PROVIDERS: ATTEND Surgery | DX: R10.9 Unspecified abdominal pain (principal); R11.2 Nausea with vomiting, unspecified | CPT/HCPCS: A0425; A0427; A0999 ==

== ENCOUNTER 2018-05-23 13:54 | Emergency (ER) | payer MEDICAID ==
[2018-05-23] MEDS ORDERED: SODIUM CHLORIDE 0.9% 1,000 ML IV ONE (14:50)
[2018-05-23] MEDS ORDERED: HALOPERIDOL 5 MG/ML VIAL IVP ONE (14:51)
[2018-05-23] MEDS ORDERED: ONDANSETRON 4 MG/2 ML VIAL IVP STA (14:51)
--- NOTE | 2018-05-23 14:52 | ED Physician Documentation ---
PD HPI ABD PAIN - Stated complaint Stated Complaint: ABD PX - Chief complaint Chief Complaint: Abd Pain - History obtained from History obtained from: Patient - History of Present Illness Timing - onset: How many weeks ago (1) Timing - details: Waxing and waning Quality: Pain Location: LUQ Associated symptoms: Nausea, Vomiting Similar symptoms before: Diagnosis (Cyclic vomiting syndrome) Recently seen: Emergency Dept (This is his 5th ED visit here in the past week.) - Additional information Additional information: The patient is a 37-year-old male with history of pancreatitis, acid peptic disease, and cyclic vomiting syndrome, who presents with left upper quadrant abdominal pain and vomiting that has been waxing and waning for the past week. This is his fifth emergency department visit here in the past week, the last time being 3 days ago. He thought he was feeling better this morning and tried going to work, but then had to leave because of recurrent vomiting. He denies fever, diarrhea, dysuria, or respiratory symptoms. In addition to smoking cigarettes, he also smokes marijuana. He denies alcohol. Review of Systems Constitutional: denies: Fever Nose: denies: Congestion Throat: denies: Sore throat Cardiac: denies: Chest pain / pressure Respiratory: reports: Cough (chrinic smoker's cough.). denies: Dyspnea GI: reports: Abdominal Pain, Nausea, Vomiting. denies: Diarrhea : denies: Dysuria Skin: denies: Rash Musculoskeletal: denies: Back pain Neurologic: denies: Focal weakness, Numbness, Headache PD PAST MEDICAL HISTORY - Past Medical History Past Medical History: Yes Cardiovascular: Hypertension Respiratory: None Neuro: None Endocrine/Autoimmune: None GI: Pancreatitis : None HEENT: None Psych: Depression, Anxiety, Other Musculoskeletal: None Derm: None - Past Surgical History Past Surgical History: Yes Ortho: Other - Present Medications Home Medications: Ambulatory Orders Medication Instructions Recorded Confirmed Promethazine [Phenergan] 25 mg PO Q6H PRN #10 tab 12/10/17 02/13/18 Omeprazole 40 mg PO QPM 02/09/18 02/13/18 Amitriptyline [Elavil] 25 mg PO HS #45 tablet 05/20/18 Promethazine Supp [Phenergan Supp] 25 mg NV Q8HR PRN #20 supp 05/20/18 Promethazine [Phenergan] 25 - 50 mg PO Q6H PRN #30 tab 05/20/18 Promethazine [Phenergan] 25 mg PO Q6H PRN #10 tab 05/23/18 - Allergies Allergies/Adverse Reactions: Allergies Allergy/AdvReac Type Severity Reaction Status Date / Time morphine Allergy Hives Verified 05/23/18 13:58 - Social History Does the pt smoke?: Yes Smoking Status: Current every day smoker Does the pt drink ETOH?: No Does the pt have substance abuse?: No - Immunizations Immunizations are current?: Yes - POLST Patient has POLST: No POLST Status: Full Code PD ED PE NORMAL - Vitals Vital signs reviewed: Yes (borderline systolic hypertension initially.) - General General: Alert and oriented X 3, Well developed/nourished - HEENT HEENT: Atraumatic, Moist mucous membranes, Pharynx benign - Neck Neck: Supple, no meningeal sign, No adenopathy, No JVD - Cardiac Cardiac: RRR, No murmur - Respiratory Respiratory: No respiratory distress, Clear bilaterally - Abdomen Abdomen: Normal bowel sounds, Soft, Other (Mild LUQ tenderness to palpation. No rebound or guarding.) - Back Back: No CVA TTP - Derm Derm: No rash - Extremities Extremities: No edema, No calf tenderness / cord - Neuro Neuro: Alert and oriented X 3, No motor deficit, Normal speech Results - Vitals Vitals: Vital Signs - 24 hr 05/23/18 05/23/18 13:55 15:39 Temperature 37.1 C 36.9 C Heart Rate 62 51 L Respiratory 18 15 Rate Blood Pressure 137/86 H 118/73 O2 Saturation 98 100 Oxygen O2 Source Room air - Labs Labs: Laboratory Tests 05/23/18 05/23/18 15:05 15:05 WBC 5.5 RBC 4.69 L Hgb 13.2 L Hct 39.3 L MCV 83.9 MCH 28.1 MCHC 33.5 RDW 13.7 Plt Count 249 MPV 7.4 Neut # (Auto) 3.8 Lymph # (Auto) 0.9 L [place] # (Auto) 0.5 Eos # (Auto) 0.3 Baso # (Auto) 0.0 Absolute Nucleated RBC 0.00 Nucleated RBC % 0.0 Sodium 135 Potassium 3.3 L Chloride 99 L Carbon Dioxide 30 Anion Gap 6.0 BUN 20 Creatinine 0.9 Estimated GFR (MDRD) 115 Glucose 89 Calcium 8.5 Total Bilirubin 0.5 AST 16 ALT 20 Alkaline Phosphatase 77 Total Protein 6.6 L Albumin 4.1 Globulin 2.5 Albumin/Globulin Ratio 1.6 Lipase 29 PD MEDICAL DECISION MAKING - ED course Complexity details: reviewed old records, reviewed results, re-evaluated patient, considered differential, d/w patient, d/w family ED course: The patient's presentation is significant for recurrent episode of cyclic vomiting, similar to his previous numerous emergency department visits. His lab results are unremarkable, with an essentially normal CBC, and chemistry panel reveals a mildly low potassium of 3.3, but normal liver enzymes and lipase. Treatment in the emergency department included administration of normal saline 1 L IV, Haldol 1 mg IV, and Zofran 4 mg IV. He felt subjectively much improved with the above treatment, and demonstrated ability to drink fluids without recurrent nausea or vomiting. He is being discharged with a prescription for Phenergan. 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 Departure - Departure Disposition: Home, Self Care Clinical Impression: Dehydration Cyclical vomiting Qualifiers: Vomiting Intractability: non-intractable Nausea presence: with nausea Qualified Code(s): G43.A0 - Cyclical vomiting, not intractable Condition: Stable Instructions: ED Nausea Vomiting Follow-Up: Kristin Hansen ARNP [Primary Care Provider] - Prescriptions: Promethazine [Phenergan] 25 mg PO Q6H PRN #10 tab PRN Reason: Nausea / Vomiting Comments: Drink plenty of fluids. You can use Phenergan as prescribed if needed for nausea. Follow-up with your primary physician within 1-2 weeks. Call to schedule appointment. Return to the emergency department if increasing abdominal pain, persistent vomiting, recurrent dehydration, or otherwise worsening symptoms. Discharge Date/Time: 05/23/18 16:00
[2018-05-23 15:16] LABS: BASOPHILS % (AUTO) 0.7 %; EOSINOPHILS # (AUTO) 0.3 10^3/uL (0.0-0.7); HGB - HEMOGLOBIN 13.2 g/dL (14.0-18.0); LYMPHOCYTES # (AUTO) 0.9 10^3/uL (1.5-3.5); LYMPHOCYTES % (AUTO) 16.7 %; MEAN CORPUSCULAR HEMOGLOBIN 28.1 pg (27.0-31.0); MEAN CORPUSCULAR HGB CONC 33.5 g/dL (32.0-36.0); MEAN CORPUSCULAR VOLUME 83.9 fL (80.0-94.0); MEAN PLATELET VOLUME 7.4 fL (7.4-11.4); MONOCYTES # (AUTO) 0.5 10^3/uL (0.0-1.0); MONOCYTES % (AUTO) 8.4 %; NEUTROPHILS # (AUTO) 3.8 10^3/uL (1.5-6.6); NEUTROPHILS % (AUTO) 69.2 %; PLT - PLATELET COUNT 249 10^3/uL (130-450); RED BLOOD COUNT 4.69 10^6/uL (4.70-6.10); RED CELL DISTRIBUTION WIDTH 13.7 % (12.0-15.0); WHITE BLOOD COUNT 5.5 x10^3/uL (4.8-10.8)
[2018-05-23 15:23] LABS: ALBUMIN 4.1 g/dL (3.2-5.5); ALBUMIN/GLOBULIN RATIO 1.6 (1.0-2.2); BILIRUBIN,TOTAL 0.5 mg/dL (0.2-1.0); CALCIUM 8.5 mg/dL (8.5-10.3); CREATININE 0.9 mg/dL (0.6-1.2); TOTAL PROTEIN 6.6 g/dL (6.7-8.2)
[2018-05-23 15:39] VITALS: BP 118/73
== END 2018-05-23 16:00 | disposition home or self-care (01) ==
LOC: EDUNIT# → ED 13:54
DX: E86.0 Dehydration (principal); G43.A0 Cyclical vomiting, in migraine, not intractable; I10 Essential (primary) hypertension; F17.200 Nicotine dependence, unspecified, uncomplicated
CPT/HCPCS: 36415; 80053; 83690; 85025; 96361; 96374; 99283; 99284

== ENCOUNTER 2018-07-31 08:55 | Outpatient (CLI) | payer MEDICAID ==
[2018-07-31 13:49] LABS: CHOL/HDL RATIO 2.5 (<5.0); CHOLESTEROL 155 mg/dL; HDL CHOLESTEROL 63 mg/dL; LDL CHOLESTEROL,CALCULATED 79 mg/dL; LDL/HDL RATIO 1.3 (<3.6); VLDL CHOLESTEROL 13 mg/dL
== END 2018-07-31 23:59 | disposition home or self-care (01) ==
LOC: LAB.N 08:55
PROVIDERS: ATTEND Internal Medicine Cardiovascular Disease
DX: Z00.00 Encounter for general adult medical examination without abnormal findings (principal); G43.A0 Cyclical vomiting, in migraine, not intractable
CPT/HCPCS: 36415; 80061; 82533; 83721

== ENCOUNTER 2018-08-11 03:41 | Outpatient (CLI) | payer MEDICAID | END 2018-08-11 03:42 | disposition home or self-care (01) | LOC: EMS 03:41 | PROVIDERS: ATTEND Surgery | DX: R10.9 Unspecified abdominal pain (principal); R11.2 Nausea with vomiting, unspecified; K21.9 Gastro-esophageal reflux disease without esophagitis; J45.909 Unspecified asthma, uncomplicated | CPT/HCPCS: A0425; A0427; A0999 ==

== ENCOUNTER 2018-08-11 04:09 | Emergency (ER) | payer MEDICAID ==
[2018-08-11] MEDS ORDERED: HALOPERIDOL 5 MG/ML VIAL IVP STA (04:27)
[2018-08-11] MEDS ORDERED: PROMETHAZINE INJ 25 MG in SODIUM CHLORIDE 0.9% 50 ML IV STA (04:27)
[2018-08-11] MEDS ORDERED: SODIUM CHLORIDE 0.9% 1,000 ML IV ONE (04:27)
--- NOTE | 2018-08-11 04:50 | ED Physician Documentation ---
History of Present Illness - Stated complaint Stated Complaint: ABD PAIN - Chief complaint Chief Complaint: Abd Pain - History obtained from History obtained from: Patient - History of Present Illness Timing: Last night Pain level max: 10 Pain level now: 5 Improved by: zofran and fentanyl with EMS Worsened by: nothing - Additonal information Additional information: diffuse abd pain and vomiting. Similar to past episodes. Ongoing for past 6 hrs. States no fevers or recent illnesses. Uses marijuana several times daily.No diarrhea or constipation Review of Systems Constitutional: denies: Fever, Chills Cardiac: denies: Chest pain / pressure Respiratory: denies: Cough GI: denies: Diarrhea, Hematemesis, Bloody / black stool : denies: Dysuria Skin: denies: Rash Musculoskeletal: denies: Neck pain, Back pain Neurologic: denies: Focal weakness, Numbness, Headache PD PAST MEDICAL HISTORY - Past Medical History Past Medical History: Yes Cardiovascular: Hypertension Respiratory: None Neuro: None Endocrine/Autoimmune: None GI: Pancreatitis : None HEENT: None Psych: Depression, Anxiety, Other Musculoskeletal: None Derm: None - Past Surgical History Past Surgical History: Yes Ortho: Other - Present Medications Home Medications: Ambulatory Orders Medication Instructions Recorded Confirmed Omeprazole 40 mg PO QPM 02/09/18 08/11/18 Amitriptyline [Elavil] 25 mg PO HS #45 tablet 05/20/18 08/11/18 Ondansetron Odt [Zofran] 4 mg TL Q6H PRN #10 tablet 08/11/18 Promethazine [Phenergan] 25 mg PO Q6H PRN #10 tab 08/11/18 - Allergies Allergies/Adverse Reactions: Allergies Allergy/AdvReac Type Severity Reaction Status Date / Time morphine Allergy Hives Verified 08/11/18 04:14 - Social History Does the pt smoke?: Yes Smoking Status: Current every day smoker Does the pt drink ETOH?: No Does the pt have substance abuse?: No - Immunizations Immunizations are current?: Yes - POLST Patient has POLST: No POLST Status: Full Code PD ED PE NORMAL - Vitals Vital signs reviewed: Yes - General General: Alert and oriented X 3, No acute distress - HEENT HEENT: PERRL - Neck Neck: Supple, no meningeal sign - Cardiac Cardiac: RRR, Strong equal pulses - Respiratory Respiratory: No respiratory distress, Clear bilaterally - Abdomen Abdomen: Soft, Non tender, Non distended - Derm Derm: Warm and dry, No rash - Extremities Extremities: No edema, No calf tenderness / cord - Neuro Neuro: Alert and oriented X 3 - Psych Psych: Normal mood, Normal affect Results - Vitals Vitals: Vital Signs - 24 hr 08/11/18 08/11/18 08/11/18 04:11 04:14 05:13 Temperature 37 C Heart Rate 62 71 51 L Respiratory 16 17 16 Rate Blood Pressure 137/99 H 125/86 H O2 Saturation 95 95 96 Oxygen O2 Source Room air - Labs Labs: Laboratory Tests 08/11/18 08/11/18 04:50 04:50 WBC 6.3 RBC 5.94 Hgb 16.1 Hct 50.6 MCV 85.2 MCH 27.2 MCHC 31.9 L RDW 14.6 Plt Count 302 MPV 7.4 Neut # (Auto) 3.8 Lymph # (Auto) 1.4 L [place] # (Auto) 0.8 Eos # (Auto) 0.2 Baso # (Auto) 0.1 Absolute Nucleated RBC 0.00 Nucleated RBC % 0.1 Sodium 138 Potassium 4.1 Chloride 105 Carbon Dioxide 25 Anion Gap 8.0 BUN 15 Creatinine 1.2 Estimated GFR (MDRD) 83 L Glucose 115 H Calcium 9.2 Total Bilirubin 0.6 AST 26 ALT 27 Alkaline Phosphatase 70 Total Protein 7.9 Albumin 4.5 Globulin 3.4 Albumin/Globulin Ratio 1.3 Lipase 131 H PD MEDICAL DECISION MAKING - ED course Complexity details: reviewed old records, reviewed results, re-evaluated patient, considered differential, d/w patient ED course: 37-year-old male with what appears to be cannabinoid-induced hyperemesis. Given Phenergan, IV fluids and haloperidol. Symptoms resolved and he request to go home at this time. Tolerating p.o. without difficulty. Patient is well- appearing, nontoxic. No significant lab abnormalities at this time. Patient counseled regarding signs and symptoms for which I believe and urgent re- evaluation would be necessary. Patient with good understanding of and agreement to plan and is comfortable going home at this time This document was made in part using voice recognition software. While efforts are made to proofread this document, sound alike and grammatical errors may occur. Departure - Departure Disposition: Home, Self Care Clinical Impression: Cannabinoid hyperemesis syndrome Condition: Good Instructions: ED Nausea Vomiting Follow-Up: Kristin Hansen ARNP [Primary Care Provider] - Within 1 week Prescriptions: Ondansetron Odt [Zofran] 4 mg TL Q6H PRN #10 tablet PRN Reason: Nausea / Vomiting Promethazine [Phenergan] 25 mg PO Q6H PRN #10 tab PRN Reason: Nausea / Vomiting Comments: Return if you worsen. Drink plenty of fluids at home. Follow up with your doctor for further care.
[2018-08-11 05:06] LABS: BASOPHILS # (AUTO) 0.1 10^3/uL (0.0-0.1); EOSINOPHILS # (AUTO) 0.2 10^3/uL (0.0-0.7); EOSINOPHILS % (AUTO) 2.9 %; HGB - HEMOGLOBIN 16.1 g/dL (14.0-18.0); LYMPHOCYTES # (AUTO) 1.4 10^3/uL (1.5-3.5); LYMPHOCYTES % (AUTO) 22.9 %; MEAN CORPUSCULAR HEMOGLOBIN 27.2 pg (27.0-31.0); MEAN CORPUSCULAR HGB CONC 31.9 g/dL (32.0-36.0); MEAN CORPUSCULAR VOLUME 85.2 fL (80.0-94.0); MEAN PLATELET VOLUME 7.4 fL (7.4-11.4); MONOCYTES # (AUTO) 0.8 10^3/uL (0.0-1.0); MONOCYTES % (AUTO) 12.3 %; NEUTROPHILS # (AUTO) 3.8 10^3/uL (1.5-6.6); NEUTROPHILS % (AUTO) 60.9 %; PLT - PLATELET COUNT 302 10^3/uL (130-450); RED BLOOD COUNT 5.94 10^6/uL (4.70-6.10); RED CELL DISTRIBUTION WIDTH 14.6 % (12.0-15.0); WHITE BLOOD COUNT 6.3 x10^3/uL (4.8-10.8)
[2018-08-11 05:17] LABS: ALBUMIN 4.5 g/dL (3.2-5.5); ALBUMIN/GLOBULIN RATIO 1.3 (1.0-2.2); BILIRUBIN,TOTAL 0.6 mg/dL (0.2-1.0); CALCIUM 9.2 mg/dL (8.5-10.3); CREATININE 1.2 mg/dL (0.6-1.2); TOTAL PROTEIN 7.9 g/dL (6.7-8.2)
[2018-08-11 05:43] VITALS: BP 130/88
== END 2018-08-11 06:00 | disposition home or self-care (01) ==
LOC: EDUNIT# → ED 04:09
DX: F12.988 Cannabis use, unspecified with other cannabis-induced disorder (principal); I10 Essential (primary) hypertension; F17.200 Nicotine dependence, unspecified, uncomplicated
CPT/HCPCS: 36415; 80053; 83690; 85025; 96365; 96375; 99283; J7040

== ENCOUNTER 2018-08-12 08:45 | Outpatient (CLI) | payer MEDICAID | END 2018-08-12 08:46 | disposition home or self-care (01) | LOC: EMS 08:45 | PROVIDERS: ATTEND Surgery | DX: R10.9 Unspecified abdominal pain (principal); I10 Essential (primary) hypertension; R11.2 Nausea with vomiting, unspecified; J45.909 Unspecified asthma, uncomplicated; K21.9 Gastro-esophageal reflux disease without esophagitis; Z87.19 Personal history of other diseases of the digestive system | CPT/HCPCS: A0425; A0427; A0999 ==

== ENCOUNTER 2018-08-12 09:07 | Emergency (ER) | payer MEDICAID ==
[2018-08-12] MEDS ORDERED: PROMETHAZINE INJ 25 MG in SODIUM CHLORIDE 0.9% 50 ML IV STA (09:30)
[2018-08-12] MEDS ORDERED: HALOPERIDOL 5 MG/ML VIAL IVP ONE (09:30)
[2018-08-12] MEDS ORDERED: SODIUM CHLORIDE 0.9% 1,000 ML IV ONE (09:31)
--- NOTE | 2018-08-12 09:33 | ED Physician Documentation ---
PD HPI ABD PAIN - Stated complaint Stated Complaint: ABD PX - Chief complaint Chief Complaint: Abd Pain - History obtained from History obtained from: Patient, EMS - History of Present Illness Timing - onset: How many days ago (3) Timing - duration: Days (3) Timing - details: Gradual onset, Still present Quality: Cramping, Sharp, Pain Location: Epigastric Improved by: Vomiting Worsened by: Eating, Position, Palpation Associated symptoms: Nausea, Vomiting, Loss of appetite Similar symptoms before: Diagnosis (pancreatitis and canabis hyperemesis) Recently seen: Emergency Dept - Additional information Additional information: 37-year-old male with a history of cannabis hyperemesis and pancreatitis has developed abdominal pain nausea and vomiting about 3 days ago. He was seen in the emerge department yesterday morning early and he was administered intravenous Phenergan and Haldol with improvement in symptoms he went home he was not able to eat much did bowel rest throughout the day and this morning has persistence of symptoms comes back to the emergency department concerned about dehydration and continued nausea and vomiting. Review of Systems Constitutional: denies: Fever Eyes: denies: Decreased vision Ears: denies: Ear pain Nose: denies: Rhinorrhea / runny nose, Congestion Throat: denies: Sore throat Cardiac: denies: Chest pain / pressure, Palpitations Respiratory: denies: Dyspnea, Cough GI: reports: Abdominal Pain, Nausea, Vomiting : denies: Dysuria, Frequency Musculoskeletal: denies: Neck pain, Back pain, Extremity pain Neurologic: denies: Generalized weakness, Focal weakness, Numbness PD PAST MEDICAL HISTORY - Past Medical History Past Medical History: Yes Cardiovascular: Hypertension Respiratory: None Neuro: None Endocrine/Autoimmune: None GI: Pancreatitis : None HEENT: None Psych: Depression, Anxiety, Other Musculoskeletal: None Derm: None - Past Surgical History Past Surgical History: Yes Ortho: Other - Present Medications Home Medications: Ambulatory Orders Medication Instructions Recorded Confirmed Omeprazole 40 mg PO QPM 02/09/18 08/12/18 Amitriptyline [Elavil] 25 mg PO HS #45 tablet 05/20/18 08/12/18 Ondansetron Odt [Zofran] 4 mg TL Q6H PRN #10 tablet 08/11/18 08/12/18 Promethazine [Phenergan] 25 mg PO Q6H PRN #10 tab 08/11/18 08/12/18 - Allergies Allergies/Adverse Reactions: Allergies Allergy/AdvReac Type Severity Reaction Status Date / Time morphine Allergy Hives Verified 08/11/18 04:14 - Social History Does the pt smoke?: Yes Smoking Status: Current every day smoker Does the pt drink ETOH?: No Does the pt have substance abuse?: No - Immunizations Immunizations are current?: Yes - POLST Patient has POLST: No POLST Status: Full Code PD ED PE NORMAL - Vitals Vital signs reviewed: Yes (normal ) - General General: Alert and oriented X 3, No acute distress, Well developed/nourished - HEENT HEENT: Atraumatic, PERRL, EOMI - Neck Neck: Supple, no meningeal sign, No bony TTP - Cardiac Cardiac: RRR, No murmur - Respiratory Respiratory: No respiratory distress, Clear bilaterally - Abdomen Abdomen: Soft, Other (mild epigastrict tenderness) - Back Back: No CVA TTP, No spinal TTP - Derm Derm: Normal color, Warm and dry, No rash - Extremities Extremities: No deformity, No edema - Neuro Neuro: Alert and oriented X 3, disciplinary hearing officer 2-12 intact, No motor deficit, No sensory deficit, Normal speech Eye Opening: Spontaneous Motor: Obeys Commands Verbal: Oriented GCS Score: 15 - Psych Psych: Normal mood, Normal affect Results - Vitals Vitals: Vital Signs - 24 hr 08/12/18 09:13 Temperature 36.6 C Heart Rate 59 L Respiratory 14 Rate Blood Pressure 124/78 O2 Saturation 98 Oxygen O2 Source Room air - Labs Labs: Laboratory Tests 08/12/18 08/12/18 08/12/18 10:03 10:03 10:03 WBC 6.0 RBC 5.47 Hgb 15.2 Hct 45.7 MCV 83.6 MCH 27.8 MCHC 33.2 RDW 14.7 Plt Count 272 MPV 7.1 L Neut # (Auto) 4.3 Lymph # (Auto) 0.8 L [place] # (Auto) 0.5 Eos # (Auto) 0.3 Baso # (Auto) 0.0 Absolute Nucleated RBC 0.01 Nucleated RBC % 0.1 Sodium 141 Potassium 3.6 Chloride 107 Carbon Dioxide 26 Anion Gap 8.0 BUN 20 Creatinine 1.2 Estimated GFR (MDRD) 83 L Glucose 113 H Calcium 8.7 Total Bilirubin 0.4 AST 22 ALT 24 Alkaline Phosphatase 65 Troponin I < 0.04 Total Protein 7.1 Albumin 4.1 Globulin 3.0 Albumin/Globulin Ratio 1.4 Lipase 48 Procedures - IVC sono (time) 09 Bedside IVC sono: IVC measures (cm) (1.18), IVC collapsed c insp (cm) (complete), Dehydration (mild at 1 liter deficit est.) PD MEDICAL DECISION MAKING - ED course Complexity details: reviewed old records, reviewed results, re-evaluated patient, considered differential, d/w patient ED course: 37-year-old male with a recurrence of his symptoms of cyclical vomiting and abdominal pain presents to the emergency department today third day of illness with mild dehydration estimated 1 L is administered intravenous saline and treated similar to what he had done yesterday morning with Phenergan intravenously as well as 2.5 mg of Haldol. Departure - Departure Disposition: 01 Home, Self Care Clinical Impression: Cyclical vomiting Qualifiers: Vomiting Intractability: non-intractable Nausea presence: with nausea Qualified Code(s): G43.A0 - Cyclical vomiting, not intractable Condition: Stable Instructions: ED Nausea Vomiting Follow-Up: Kristin Hansen ARNP [Primary Care Provider] -
[2018-08-12 10:09] LABS: BASOPHILS % (AUTO) 0.6 %; EOSINOPHILS # (AUTO) 0.3 10^3/uL (0.0-0.7); HGB - HEMOGLOBIN 15.2 g/dL (14.0-18.0); LYMPHOCYTES # (AUTO) 0.8 10^3/uL (1.5-3.5); LYMPHOCYTES % (AUTO) 14.1 %; MEAN CORPUSCULAR HEMOGLOBIN 27.8 pg (27.0-31.0); MEAN CORPUSCULAR HGB CONC 33.2 g/dL (32.0-36.0); MEAN CORPUSCULAR VOLUME 83.6 fL (80.0-94.0); MEAN PLATELET VOLUME 7.1 fL (7.4-11.4); MONOCYTES # (AUTO) 0.5 10^3/uL (0.0-1.0); MONOCYTES % (AUTO) 7.7 %; NEUTROPHILS # (AUTO) 4.3 10^3/uL (1.5-6.6); NEUTROPHILS % (AUTO) 72.6 %; PLT - PLATELET COUNT 272 10^3/uL (130-450); RED BLOOD COUNT 5.47 10^6/uL (4.70-6.10); RED CELL DISTRIBUTION WIDTH 14.7 % (12.0-15.0)
[2018-08-12 10:23] LABS: ALBUMIN 4.1 g/dL (3.2-5.5); ALBUMIN/GLOBULIN RATIO 1.4 (1.0-2.2); BILIRUBIN,TOTAL 0.4 mg/dL (0.2-1.0); CALCIUM 8.7 mg/dL (8.5-10.3); CREATININE 1.2 mg/dL (0.6-1.2); TOTAL PROTEIN 7.1 g/dL (6.7-8.2)
[2018-08-12 10:59] VITALS: BP 111/74
== END 2018-08-12 11:13 | disposition home or self-care (01) ==
LOC: EDUNIT# → ED 09:07
DX: G43.A0 Cyclical vomiting, in migraine, not intractable (principal); E86.0 Dehydration; I10 Essential (primary) hypertension; F17.200 Nicotine dependence, unspecified, uncomplicated
CPT/HCPCS: 36415; 80053; 83690; 84484; 85025; 99283

== ENCOUNTER 2018-08-12 15:58 | Outpatient (CLI) | payer MEDICAID | END 2018-08-12 15:59 | disposition home or self-care (01) | LOC: EMS 15:58 | PROVIDERS: ATTEND Surgery | DX: R10.12 Left upper quadrant pain (principal); R11.2 Nausea with vomiting, unspecified; K21.9 Gastro-esophageal reflux disease without esophagitis; J45.909 Unspecified asthma, uncomplicated | CPT/HCPCS: A0425; A0427; A0999 ==

== ENCOUNTER 2018-08-12 16:26 | Inpatient (IN) | payer MEDICAID ==
[2018-08-12] MEDS ORDERED: HYDROmorphone 1 MG/ML CARPUJECT IVP STA ×2 (16:51→17:50)
[2018-08-12] MEDS ORDERED: SODIUM CHLORIDE 0.9% 1,000 ML IV ONE (16:51)
[2018-08-12] MEDS ORDERED: HALOPERIDOL 5 MG/ML VIAL IVP ONE (16:51)
--- NOTE | 2018-08-12 17:03 | ED Physician Documentation ---
PD HPI ABD PAIN - Stated complaint Stated Complaint: ABD PAIN - Chief complaint Chief Complaint: Abd Pain - History obtained from History obtained from: Patient, Family (mom) - History of Present Illness Timing - onset: Yesterday (This is a 37-year-old gentleman with chronic recurrent abdominal pain status post multiple workups. Could be cyclic vomiting or cannabinoid hyperemesis. 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 He actually had a couple of months there where he was relatively pain-free. He does not think it is the marijuana, he took a break from marijuana for a while which was not helpful but right now he is smoking about twice a week. Pain recurred in the upper left quadrants with vomiting but no diarrhea. Mom reports coffee- ground emesis. He was here earlier in the day and treated with success but pain recurred when he got home.) Review of Systems Ten Systems: 10 systems reviewed and negative Constitutional: denies: Fever, Chills Cardiac: denies: Chest pain / pressure, Palpitations Respiratory: denies: Dyspnea, Cough GI: reports: Abdominal Pain, Nausea, Vomiting. denies: Constipation, Diarrhea : denies: Dysuria, Frequency PD PAST MEDICAL HISTORY - Past Medical History Cardiovascular: Hypertension Respiratory: None Neuro: None Endocrine/Autoimmune: None GI: Pancreatitis : None HEENT: None Psych: Depression, Anxiety, Other Musculoskeletal: None Derm: None - Past Surgical History Past Surgical History: Yes Ortho: Other - Present Medications Home Medications: Ambulatory Orders Medication Instructions Recorded Confirmed Omeprazole 40 mg PO QPM 02/09/18 08/12/18 Amitriptyline [Elavil] 25 mg PO HS #45 tablet 05/20/18 08/12/18 Ondansetron Odt [Zofran] 4 mg TL Q6H PRN #10 tablet 08/11/18 08/12/18 Promethazine [Phenergan] 25 mg PO Q6H PRN #10 tab 08/11/18 08/12/18 - Allergies Allergies/Adverse Reactions: Allergies Allergy/AdvReac Type Severity Reaction Status Date / Time morphine Allergy Hives Verified 08/11/18 04:14 - Social History Does the pt smoke?: Yes Smoking Status: Current every day smoker Does the pt drink ETOH?: No Does the pt have substance abuse?: No - Family History Family history: reports: Non contributory - Immunizations Immunizations are current?: Yes - POLST Patient has POLST: No POLST Status: Full Code PD ED PE NORMAL - Vitals Vital signs reviewed: Yes - General General: Alert and oriented X 3, No acute distress - HEENT HEENT: PERRL, EOMI - Neck Neck: Supple, no meningeal sign, No bony TTP - Cardiac Cardiac: RRR, No murmur - Respiratory Respiratory: No respiratory distress, Clear bilaterally - Abdomen Abdomen: Normal bowel sounds, Soft, Non tender - Back Back: No CVA TTP, No spinal TTP - Derm Derm: Normal color, Warm and dry - Extremities Extremities: No edema, No calf tenderness / cord - Neuro Neuro: Alert and oriented X 3, Normal speech Results - Vitals Vitals: Vital Signs - 24 hr 08/12/18 08/12/18 08/12/18 16:31 18:47 20:06 Temperature 36.9 C Heart Rate 97 68 66 Respiratory 20 17 Rate Blood Pressure 190/128 H 225/137 H 228/125 H O2 Saturation 96 96 96 Oxygen O2 Source Room air - Labs Labs: Laboratory Tests 08/12/18 17:05 Sodium 143 Potassium 3.7 Chloride 109 Carbon Dioxide 25 Anion Gap 9.0 BUN 21 H Creatinine 1.1 Estimated GFR (MDRD) 91 Glucose 142 H Calcium 9.3 Total Bilirubin 0.7 AST 25 ALT 28 Alkaline Phosphatase 76 Total Protein 8.2 Albumin 4.8 Globulin 3.4 Albumin/Globulin Ratio 1.4 Lipase 58 H PD MEDICAL DECISION MAKING - ED course ED course: This is a 37-year-old gentleman, his third visit in 2 days for intractable recurrent abdominal pain, the diagnosis could be cyclic vomiting, cannabinoid hyperemesis or Amauri-Bellamy. He has had extensive workup in the past without clear findings. Given his inability to improve in a timely fashion and not significant improvement with stepwise medications here I spoke with Dr. Haney for observation at 8:10 PM. Departure - Departure Disposition: ED Place in Observation Clinical Impression: Intractable nausea and vomiting, Abdominal pain Condition: Stable
[2018-08-12 17:27] LABS: ALBUMIN 4.8 g/dL (3.2-5.5); ALBUMIN/GLOBULIN RATIO 1.4 (1.0-2.2); BILIRUBIN,TOTAL 0.7 mg/dL (0.2-1.0); CALCIUM 9.3 mg/dL (8.5-10.3); CREATININE 1.1 mg/dL (0.6-1.2); TOTAL PROTEIN 8.2 g/dL (6.7-8.2)
[2018-08-12] MEDS ORDERED: PROMETHAZINE INJ 25 MG in SODIUM CHLORIDE 0.9% 50 ML IV STA (17:50)
[2018-08-12] MEDS ORDERED: KETOROLAC 30 MG/ML VIAL IVP STA (18:39)
[2018-08-12] MEDS ORDERED: METOCLOPRAMIDE 10 MG/2 ML VIAL IVP STA (18:39)
[2018-08-12] MEDS ORDERED: ACETAMINOPHEN 325 MG TABLET PO PRN (20:15)
[2018-08-12] MEDS ORDERED: ZOLPIDEM 5 MG TABLET PO PRN (20:15)
[2018-08-12] MEDS ORDERED: PROMETHAZINE 25 MG/1 ML VIAL IM PRN (20:15)
--- NOTE | 2018-08-12 20:33 | HISTORY & PHYSICAL EXAMINATION ---
Chief Complaint - Chief Complaint Chief Complaint: Cyclic vomiting and abdominal pain History of Present Illness - Admitted From Admitted From:: Emergency report - History Obtained From Records Reviewed: Emergency department records from 2 days to visits as well as yesterday's a History obtained from: Patient and Dr. Dempsey, ED physician Exam Limitations: None - History of Present Illness HPI Comment/Other: This patient is a 37-year-old male who has an unfortunate history of cyclic vomiting syndrome and is very well-known to this facility due to frequent hospital visits. In fact he was here yesterday, and once today after being discharged, he returned to the emergency room again with the same symptoms of intractable nausea and vomiting and abdominal pain and after multiple attempts with antiemetics including Phenergan, Compazine, Zofran, and Haldol, the patient is still unable to keep anything down and tolerate anything by mouth. In the most recent workup in the emergency room his labs are reassuring with no significant abnormalities on the metabolic panel ordered or on the CBC ordered on the previous visit today. 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 Hospitalist service was asked to admit patient For further treatment of the current episode of intractable nausea and vomiting. History - Past Medical History Cardiovascular: reports: Hypertension Respiratory: reports: None Neuro: reports: None Endocrine/Autoimmune: reports: None GI: reports: Pancreatitis : reports: None HEENT: reports: None Psych: reports: Depression, Anxiety, Other Musculoskeletal: reports: None Derm: reports: None MRSA Hx?: No - Past Surgical History Ortho: reports: Other - Family & Social History Family History: Mother: Alive and Well, Hypertension, Father: Alive and Well, Hypertension, Renal Disease/Failure, Other family: Mental Illness Family History Comment/Other: Patient's mother has obesity, hypertension, arthritis and history of aortic dissection with aneurysm at the age of 50. One brother had a bicuspid aortic valve and had an aneurysm in his 20s. Social History Notes: He is unmarried. He does have 6 children with several mothers. His youngest child is 1 year old and his oldest is 19. 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 He now works in [employer]. He was drinking up to a pack and a half of beer a day when he stopped drinking in 2016. He does use cannabis daily he states that he smokes about a gram a day. The patient does smoke cigarettes about half a pack a day and has been doing so since his teen years. He denies any use of cocaine, heroin, LSD, methamphetamines. He denies any IV drug abuse. He is currently living with his mother and father and 1 of his brothers. While he is independent with activities of daily living with regard to dressing himself and feeding himself he is usually too tired to do much else. He still cooks for the family in general. In any given time many of his siblings, nieces and nephews are around the house and he participates in cooking and cleaning in the kitchen. - Substance History Use: Uses substance without health or social issues: Tobacco, Cannabis - POLST Patient has POLST: No POLST Status: Full Code Meds/Allgy - Home Medications Home Medications: Ambulatory Orders Medication Instructions Recorded Confirmed Omeprazole 40 mg PO QPM 02/09/18 08/12/18 Amitriptyline [Elavil] 25 mg PO HS #45 tablet 05/20/18 08/12/18 Ondansetron Odt [Zofran] 4 mg TL Q6H PRN #10 tablet 08/11/18 08/12/18 Promethazine [Phenergan] 25 mg PO Q6H PRN #10 tab 08/11/18 08/12/18 - Allergies Allergies/Adverse Reactions: Allergies Allergy/AdvReac Type Severity Reaction Status Date / Time morphine Allergy Hives Verified 08/11/18 04:14 Review of Systems - Constitutional Constitutional: reports: Fatigue, Malaise, Weakness, Poor appetite, Diaphoresis. denies: Fever, Chills - Cardiovascular Cariovascular: denies: Irregular heart rate, Chest pain - Respiratory Respiratory: denies: SOB at rest, SOB with exertion - Gastrointestinal Gastrointestinal: reports: Abdominal pain, Nausea, Vomiting, Bile emesis, Coffee grounds emesis, Reflux/heartburn, Poor appetite. denies: Change in bowel habits, Black stools, Bloody stools, Jan blood emesis - Musculoskeletal Musculoskeletal: reports: Back pain - All Other Systems All Other Systems: reports: Reviewed and negative Prior Level of Functionality: Independent with all ADLs Exam - Vital Signs Reviewed Vital Signs: Yes Vital Signs: Vital Signs x48h Temp Pulse Resp BP Pulse Ox 08/12/18 20:06 66 228/125 H 96 08/12/18 18:47 68 17 225/137 H 96 08/12/18 16:31 36.9 C 97 20 190/128 H 96 Vital Signs - 24 hr 08/12/18 08/12/18 08/12/18 16:31 18:47 20:06 Temperature 36.9 C Heart Rate 97 68 66 Respiratory 20 17 Rate Blood Pressure 190/128 H 225/137 H 228/125 H O2 Saturation 96 96 96 Oxygen O2 Source Room air - Physical Exam General Appearance: positive: No acute distress, Lethargic Eyes Bilateral: positive: Normal inspection ENT: positive: ENT inspection nml Neck: positive: Nml inspection Respiratory: positive: Chest non-tender, No respiratory distress Cardiovascular: positive: Regular rate & rhythm, No murmur, No gallop, Irregularly irregular Peripheral Pulses: positive: 2+ Abdomen: positive: Non-tender, No organomegaly, Nml bowel sounds, No distention Skin: positive: Color nml, No rash, Warm Extremities: positive: Non-tender Neurologic/Psychiatric: positive: Oriented x3, CN's nml (2-12), Motor nml Sepsis Event Note (H) - Evaluation Current Stage of Sepsis: Ruled out Conclusion/Plan - Problem List (1) Intractable nausea and vomiting Conclusion/Plan: This is a recurrent problem for this patient and this current episode is typical for his past episodes. It has been postulated that he may have hyperemesis cannabinoid syndrome however he states that he has tried to avoid marijuana for extended periods of time and this does not seem to affect the frequency of his symptoms. In any case, he has an outpatient plan for further workup with oncology and at this point our plan will be to admit the patient and provide IV fluid hydration and anti-emetics until this episode resolves, at which point he will hopefully be able to get discharged to find a reasonable long-term plan to avoid further admissions. Qualifiers: Vomiting type: cyclical vomiting Qualified Code(s): G43.A1 - Cyclical vomiting, intractable - Lab Results Lab results reviewed: Yes Fish Bones: 08/12/18 17:05 Core Measures - Anticipated LOS I expect patient to be DC'd or transferred within 96 hours.: Yes - DVT/VTE - Prophylaxis VTE/DVT Device ordered at admit?: Yes
[2018-08-12] MEDS: PANTOPRAZOLE 40 MG VIAL IV SCH (20:54)
[2018-08-12] MEDS: LACTATED RINGERS 1,000 ML IV SCH (20:54)
[2018-08-12] MEDS: HYDROmorphone 0.5 MG/0.5 ML SYRINGE IVP PRN ×2 (20:54→23:44)
[2018-08-12] MEDS: AMITRIPTYLINE 25 MG TABLET PO SCH (20:56)
[2018-08-12] MEDS: ONDANSETRON 4 MG/2 ML VIAL IVP PRN (23:41)
[2018-08-13] MEDS: SODIUM CHLORIDE FLUSH 0.9% 10 ML SYRINGE IVP SCH ×3 (00:51→16:14)
[2018-08-13] MEDS: LACTATED RINGERS 1,000 ML IV SCH ×3 (05:00→20:38)
[2018-08-13] MEDS: ACETAMINOPHEN 1,000 MG/100 ML 100 ML IV PRN (05:05)
[2018-08-13] MEDS: oxyCODONE 5 MG TABLET PO PRN ×2 (06:52→11:57)
[2018-08-13] MEDS: POLYETHYLENE GLYCOL 3350 17 GM PACKET PO SCH (08:55)
[2018-08-13] MEDS: PANTOPRAZOLE 40 MG VIAL IV SCH ×2 (09:07→20:38)
[2018-08-13] MEDS: SODIUM CHLORIDE FLUSH 0.9% 10 ML SYRINGE IVP PRN ×5 (09:15→13:53)
[2018-08-13] MEDS: amLODIPine 5 MG TABLET PO SCH (09:17)
[2018-08-13] MEDS: ONDANSETRON 4 MG/2 ML VIAL IVP PRN (11:52)
[2018-08-13 11:58] LABS: ALBUMIN 3.7 g/dL (3.2-5.5); ALBUMIN/GLOBULIN RATIO 1.3 (1.0-2.2); BILIRUBIN,TOTAL 0.7 mg/dL (0.2-1.0); CALCIUM 8.7 mg/dL (8.5-10.3); CREATININE 1.1 mg/dL (0.6-1.2); TOTAL PROTEIN 6.5 g/dL (6.7-8.2)
[2018-08-13] MEDS: HYDROmorphone 0.5 MG/0.5 ML SYRINGE IVP PRN ×3 (12:25→20:35)
--- NOTE | 2018-08-13 13:18 | PROVIDER PROGRESS NOTE ---
Subjective - Prog Note Date Prog Note Date: 08/13/18 - Subjective Pt reports feeling: No change Subjective: pt reported at vp respiratory he felt better, N/V was controlled, pain was better and controlled. Pt asked to switch to regular or soft diet for lunch to see if pt can tolerate. Unfortunately after he ate about 75% of his lunch, he could not tolerate. He began nausea and vomiting again, and abdomin became pain. and his BP rise again. He denies chest pain, fever, chill, SOB Current Medications - Current Medications Current Medications: Active Medications Acetaminophen (Tylenol) 650 mg PO Q4HR PRN PRN Reason: Pain 1 to 4 Amitriptyline HCl (Elavil) 25 mg PO HS [facility] Last Admin: 08/12/18 20:56 Dose: Not Given Amlodipine Besylate (Norvasc) 10 mg PO DAILY [facility] Last Admin: 08/13/18 09:17 Dose: 10 mg Hydralazine HCl (Apresoline Inj) 10 mg IVP Q4HR PRN PRN Reason: For systolic > 180 Hydromorphone HCl (Dilaudid Inj Syringe) 1 mg IVP Q2H PRN PRN Reason: Pain 8 to 10 Last Admin: 08/13/18 12:25 Dose: 1 mg Lactated Ringer's (Lr) 1,000 mls @ 125 mls/hr IV .Q8H [facility] Last Admin: 08/13/18 05:00 Dose: 125 mls/hr Acetaminophen (Ofirmev) 100 mls @ 400 mls/hr IV Q6HR PRN PRN Reason: PAIN Last Infusion: 08/13/18 05:25 Dose: Infused Lorazepam (Ativan Inj (Vial)) 0.5 mg IVP Q2H PRN PRN Reason: Anxiety Ondansetron HCl (Zofran Inj) 4 mg IVP Q6HR PRN PRN Reason: Nausea / Vomiting Last Admin: 08/13/18 11:52 Dose: 4 mg Oxycodone HCl (Roxicodone) 5 mg PO Q4HR PRN PRN Reason: Pain 5 to 7 Last Admin: 08/13/18 11:57 Dose: 5 mg Pantoprazole Sodium (Protonix) 40 mg IV BID [facility] Last Admin: 08/13/18 09:07 Dose: 40 mg Polyethylene Glycol (Miralax) 17 gm PO DAILY [facility] Last Admin: 08/13/18 08:55 Dose: Not Given Prochlorperazine Edisylate (Compazine Inj) 10 mg IVP Q6HR PRN PRN Reason: Nausea / Vomiting Promethazine HCl (Phenergan Inj) 25 mg IM Q6HR PRN PRN Reason: Nausea / Vomiting Sodium Chloride (Normal Saline Flush 0.9%) 10 ml IVP PRN PRN PRN Reason: NEEDED PER PROVIDER ORDERS Last Admin: 08/13/18 11:48 Dose: 10 ml Sodium Chloride (Normal Saline Flush 0.9%) 10 ml IVP 0100,0900,1700 [facility] Last Admin: 08/13/18 09:15 Dose: 10 ml Zolpidem Tartrate (Ambien) 5 mg PO QPM PRN PRN Reason: Insomnia Omeprazole 40 mg PO QPM 02/09/18 Objective - Vital Signs/Intake & Output Reviewed Vital Signs: Yes Vital Signs: Vital Signs x48h Temp Pulse Resp BP Pulse Ox 08/13/18 12:52 37.0 C 69 16 194/116 H 97 08/13/18 08:30 36.7 C 78 18 122/70 97 Intake & Output: Intake & Output 08/10/18 08/11/18 08/12/18 08/13/18 23:59 23:59 23:59 23:59 Intake Total 5420.258 3608 Output Total 250 520 Balance 315.851 4600 - Objective General Appearance: positive: No acute distress, Alert. negative: Lethargic Eyes Bilateral: positive: Normal inspection, PERRL, No lid inflammation, Conjunctivae nml ENT: positive: ENT inspection nml, Pharynx nml, No signs of dehydration. negative: Purulent nasal drainage, Pharyngeal erythema, Oral lesions Neck: positive: Nml inspection, Thyroid nml, No JVD, Trachea midline. negative: Thyromegaly, Lymphadenopathy (R), Lymphadenopathy (L), Stiff neck, Swelling/bruising, Tracheal deviation Respiratory: positive: Chest non-tender, No respiratory distress, Breath sounds nml. negative: Wheezes, Rales, Rhonchi Cardiovascular: positive: Regular rate & rhythm, No murmur, No gallop. negative: Irregularly irregular, Extrasystoles, Tachycardia, Bradycardia, JVD present, Systolic murmur, Diastolic murmur Peripheral Pulses: 2+ Radial (R), 2+ Radial (L), 2+ Dorsalis pedis (R), 2+ Dorsalis pedis (L) Abdomen: positive: Non-tender, No organomegaly, Nml bowel sounds, No distention. negative: Tenderness, Guarding, Rebound Back: positive: Nml inspection. negative: CVA tenderness (R), CVA tenderness (L) Skin: positive: Color nml, No rash, Warm, Dry. negative: Cyanosis, Diaphoresis, Pallor Extremities: positive: Non-tender, Full ROM, Nml appearance. negative: Calf tenderness, Joint swelling, Rachell's sign/cords Neurologic/Psychiatric: positive: Oriented x3, Motor nml, Sensation nml, Mood/affect nml. negative: Weakness, Sensory loss, Facial droop, Slurred/abnml speech, Depressed mood/affect - Lab Results Fish Bones: 08/13/18 11:40 Other Labs: Lab Results x24hrs 08/13/18 08/12/18 Range/Units 11:40 17:05 Sodium 137 143 (135-145) mmol/L Potassium 3.5 3.7 (3.5-5.0) mmol/L Chloride 102 109 (101-111) mmol/L Carbon Dioxide 26 25 (21-32) mmol/L Anion Gap 9.0 9.0 (6-13) BUN 21 H 21 H (6-20) mg/dL Creatinine 1.1 1.1 (0.6-1.2) mg/dL Estimated GFR (MDRD) 91 91 (>89) Glucose 100 142 H (70-100) mg/dL Calcium 8.7 9.3 (8.5-10.3) mg/dL Total Bilirubin 0.7 0.7 (0.2-1.0) mg/dL AST 20 25 (10-42) IU/L ALT 21 28 (10-60) IU/L Alkaline Phosphatase 57 76 (42-121) IU/L Total Protein 6.5 L 8.2 (6.7-8.2) g/dL Albumin 3.7 4.8 (3.2-5.5) g/dL Globulin 2.8 3.4 (2.1-4.2) g/dL Albumin/Globulin Ratio 1.3 1.4 (1.0-2.2) Lipase 31 58 H (22-51) U/L ABX Reporting Has patient been on IV antibiotics over the past 48 hours?: No Sepsis Event Note (H) - Evaluation Current Stage of Sepsis: Ruled out Assessment/Plan - Problem List (1) Intractable nausea and vomiting Impression: 08/13 pt has hx of cannabionoid resume, pt may hav ehyperemesis cannabinoid syndr ome. pt had multiple admission with similar symptoms. In 2018 pt had multiple abdomen image study which reveals unremarkable. Pt can not tolerate the diet yet, and N/V and abdominal pain again Pt state he is waiting his diagnosis result from his GI doctor. continue anti-emetics PRN, IVF fluid, pain control, and clear diet (2) HTN it appear to be caused by his abdominal pain and distress. 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 pt is waiting the diagnosis from his GI doctor. continue Protonix IV continue pain control and IVF of NS advise pt followup his GI physician closely Qualifiers: Vomiting type: cyclical vomiting Qualified Code(s): G43.A1 - Cyclical vomi ting, intractable
[2018-08-13] MEDS: hydrALAZINE INJ 20 MG/ML VIAL IVP PRN (13:29)
[2018-08-13] MEDS: PROCHLORPERAZINE 10 MG/2 ML VIAL IVP PRN (13:53)
[2018-08-13] MEDS: LORazepam 2 MG/ML VIAL IVP PRN (13:59)
[2018-08-13 15:46] LABS: MUDS CUTOFF CONCENTRATIONS CUTOFF CONC BELOW:
[2018-08-13 15:58] LABS: AMPHETAMINE SCREEN,URINE NEGATIVE (NEGATIVE); BENZODIAZEPINES SCREEN, URINE NEGATIVE (NEGATIVE); COCAINE SCREEN URINE NEGATIVE (NEGATIVE); METHADONE SCREEN, URINE NEGATIVE (NEGATIVE); METHAMPHETAMINES SCREEN, URINE NEGATIVE (NEGATIVE); OPIATE SCREEN, URINE POSITIVE (NEGATIVE); OXYCODONE SCREEN, URINE POSITIVE (NEGATIVE); PROPOXYPHENE SCREEN, URINE NEGATIVE (NEGATIVE); TRICYCLIC ANTIDEPRESSANT,URINE NEGATIVE (NEGATIVE)
[2018-08-13] MEDS: AMITRIPTYLINE 25 MG TABLET PO SCH (20:35)
[2018-08-14] MEDS: oxyCODONE 5 MG TABLET PO PRN (00:50)
[2018-08-14] MEDS: SODIUM CHLORIDE FLUSH 0.9% 10 ML SYRINGE IVP SCH ×3 (02:00→15:43)
[2018-08-14] MEDS: LACTATED RINGERS 1,000 ML IV SCH ×3 (04:19→19:00)
[2018-08-14 05:27] LABS: BASOPHILS # (AUTO) 0.1 10^3/uL (0.0-0.1); BASOPHILS % (AUTO) 0.8 %; EOSINOPHILS # (AUTO) 0.3 10^3/uL (0.0-0.7); EOSINOPHILS % (AUTO) 3.6 %; HGB - HEMOGLOBIN 13.1 g/dL (14.0-18.0); LYMPHOCYTES # (AUTO) 3.2 10^3/uL (1.5-3.5); LYMPHOCYTES % (AUTO) 43.8 %; MEAN CORPUSCULAR HEMOGLOBIN 27.6 pg (27.0-31.0); MEAN CORPUSCULAR HGB CONC 32.4 g/dL (32.0-36.0); MEAN CORPUSCULAR VOLUME 85.3 fL (80.0-94.0); MEAN PLATELET VOLUME 7.6 fL (7.4-11.4); MONOCYTES # (AUTO) 0.7 10^3/uL (0.0-1.0); MONOCYTES % (AUTO) 9.1 %; NEUTROPHILS # (AUTO) 3.1 10^3/uL (1.5-6.6); NEUTROPHILS % (AUTO) 42.7 %; PLT - PLATELET COUNT 238 10^3/uL (130-450); RED BLOOD COUNT 4.74 10^6/uL (4.70-6.10); RED CELL DISTRIBUTION WIDTH 14.3 % (12.0-15.0); WHITE BLOOD COUNT 7.2 x10^3/uL (4.8-10.8)
[2018-08-14 05:39] LABS: ALBUMIN 3.4 g/dL (3.2-5.5); ALBUMIN/GLOBULIN RATIO 1.4 (1.0-2.2); BILIRUBIN,TOTAL 0.9 mg/dL (0.2-1.0); CALCIUM 8.8 mg/dL (8.5-10.3); CREATININE 1.1 mg/dL (0.6-1.2); MAGNESIUM 2.1 mg/dL (1.7-2.8); TOTAL PROTEIN 5.8 g/dL (6.7-8.2)
[2018-08-14] MEDS: PANTOPRAZOLE 40 MG VIAL IV SCH ×2 (08:21→21:40)
[2018-08-14] MEDS: POLYETHYLENE GLYCOL 3350 17 GM PACKET PO SCH (08:22)
[2018-08-14] MEDS: amLODIPine 5 MG TABLET PO SCH (08:23)
[2018-08-14] MEDS: HYDROmorphone 0.5 MG/0.5 ML SYRINGE IVP PRN ×2 (08:23→11:53)
[2018-08-14] MEDS: ONDANSETRON 4 MG/2 ML VIAL IVP PRN ×3 (08:37→19:55)
[2018-08-14] MEDS: PROCHLORPERAZINE 10 MG/2 ML VIAL IVP PRN (10:25)
[2018-08-14] MEDS: ACETAMINOPHEN 1,000 MG/100 ML 100 ML IV PRN (10:25)
[2018-08-14] MEDS: HYDROmorphone 1 MG/ML CARPUJECT IVP PRN ×4 (14:10→21:40)
--- NOTE | 2018-08-14 14:12 | PROVIDER PROGRESS NOTE ---
Subjective - Prog Note Date Prog Note Date: 08/14/18 - Subjective Pt reports feeling: No change Subjective: pt report he feel better in the morning, pain and N/V are controlled. he request advance diet. So change his diet from clear liquid diet to full liquid diet, but pt still can not tolerate full liquid diet, continue to have N/V and abdominal pain. Pt had multiple times with similar symptoms. We had CT and MRCP study for him at 2018, unremarkable. UDS reveals pt is still positive for cannabinoid even he state he did not take any more. pt's significant other and his mother state pt visited on May 2018. had a study of CT abdomen and pelvis with contrast for pt, they did not have significant findings. Pt's mother state pt stay hospital for 3-4 days on clear diet then he became better and can tolerate the regular diet. pt's mother bring his some information from Located within [facility] endocrinology [facility]. pt had the order of cortisol AM; Creatinine, urine 24 hour; metanephrines, frac, urine, 24 hour. pt only had cortisol AM study done. pt did not followup the study of Creatinine, urine 24 hour; metanephrines, frac, urine, 24 hour. Current Medications - Current Medications Current Medications: Active Medications Acetaminophen (Tylenol) 650 mg PO Q4HR PRN PRN Reason: Pain 1 to 4 Amitriptyline HCl (Elavil) 25 mg PO HS [facility] Last Admin: 08/13/18 20:35 Dose: Not Given Amlodipine Besylate (Norvasc) 10 mg PO DAILY [facility] Last Admin: 08/14/18 08:23 Dose: 10 mg Hydralazine HCl (Apresoline Inj) 10 mg IVP Q4HR PRN PRN Reason: For systolic > 180 Last Admin: 08/13/18 13:29 Dose: 10 mg Hydromorphone HCl (Dilaudid Inj Carp) 1 mg IVP Q2H PRN PRN Reason: Pain 8 to 10 Last Admin: 08/14/18 14:10 Dose: 1 mg Lactated Ringer's (Lr) 1,000 mls @ 125 mls/hr IV .Q8H [facility] Last Admin: 08/14/18 11:51 Dose: 125 mls/hr Acetaminophen (Ofirmev) 100 mls @ 400 mls/hr IV Q6HR PRN PRN Reason: PAIN Last Infusion: 08/14/18 10:53 Dose: Infused Lorazepam (Ativan Inj (Vial)) 0.5 mg IVP Q2H PRN PRN Reason: Anxiety Last Admin: 08/13/18 13:59 Dose: 0.5 mg Ondansetron HCl (Zofran Inj) 4 mg IVP Q6HR PRN PRN Reason: Nausea / Vomiting Last Admin: 08/14/18 14:10 Dose: 4 mg Oxycodone HCl (Roxicodone) 5 mg PO Q4HR PRN PRN Reason: Pain 5 to 7 Last Admin: 08/14/18 00:50 Dose: 5 mg Pantoprazole Sodium (Protonix) 40 mg IV BID [facility] Last Admin: 08/14/18 08:21 Dose: 40 mg Polyethylene Glycol (Miralax) 17 gm PO DAILY [facility] Last Admin: 08/14/18 08:22 Dose: 17 gm Prochlorperazine Edisylate (Compazine Inj) 10 mg IVP Q6HR PRN PRN Reason: Nausea / Vomiting Last Admin: 08/14/18 10:25 Dose: 10 mg Promethazine HCl (Phenergan Inj) 25 mg IM Q6HR PRN PRN Reason: Nausea / Vomiting Sodium Chloride (Normal Saline Flush 0.9%) 10 ml IVP PRN PRN PRN Reason: NEEDED PER PROVIDER ORDERS Last Admin: 08/13/18 13:53 Dose: 10 ml Sodium Chloride (Normal Saline Flush 0.9%) 10 ml IVP 0100,0900,1700 [facility] Last Admin: 08/14/18 10:18 Dose: 10 ml Zolpidem Tartrate (Ambien) 5 mg PO QPM PRN PRN Reason: Insomnia Omeprazole 40 mg PO QPM 02/09/18 Objective - Vital Signs/Intake & Output Reviewed Vital Signs: Yes Vital Signs: Vital Signs x48h Temp Pulse Resp BP Pulse Ox 08/14/18 12:40 37.0 C 60 18 178/96 H 96 08/14/18 08:28 36.8 C 53 L 16 142/83 H 96 Intake & Output: Intake & Output 08/11/18 08/12/18 08/13/18 08/14/18 23:59 23:59 23:59 23:59 Intake Total 0483.848 0446.75 2881.667 Output Total 250 520 520 Balance 188.957 8364.75 2361.667 - Objective General Appearance: positive: No acute distress, Alert. negative: Lethargic Eyes Bilateral: positive: Normal inspection, PERRL, No lid inflammation, Conjunctivae nml ENT: positive: ENT inspection nml, Pharynx nml, No signs of dehydration. negative: Purulent nasal drainage, Pharyngeal erythema, Oral lesions Neck: positive: Nml inspection, Thyroid nml, No JVD, Trachea midline. negative: Thyromegaly, Lymphadenopathy (R), Lymphadenopathy (L), Stiff neck, Swelling/bruising, Tracheal deviation Respiratory: positive: Chest non-tender, No respiratory distress, Breath sounds nml. negative: Wheezes, Rales, Rhonchi Cardiovascular: positive: Regular rate & rhythm, No murmur, No gallop. negative: Irregularly irregular, Extrasystoles, Tachycardia, Bradycardia, JVD present, Systolic murmur, Diastolic murmur Peripheral Pulses: 2+ Radial (R), 2+ Radial (L), 2+ Dorsalis pedis (R), 2+ Dorsalis pedis (L) Abdomen: positive: Non-tender, No organomegaly, Nml bowel sounds, No distention. negative: Tenderness, Guarding, Rebound Back: positive: Nml inspection. negative: CVA tenderness (R), CVA tenderness (L) Skin: positive: Color nml, No rash, Warm, Dry. negative: Cyanosis, Diaphoresis, Pallor Extremities: positive: Non-tender, Full ROM, Nml appearance. negative: Calf tenderness, Joint swelling, Rachell's sign/cords Neurologic/Psychiatric: positive: Oriented x3, Motor nml, Sensation nml, Mood/a ffect nml. negative: Weakness, Sensory loss, Facial droop, Slurred/abnml speech, Depressed mood/affect - Lab Results Fish Bones: 08/14/18 04:55 08/14/18 04:55 Other Labs: Lab Results x24hrs 08/14/18 08/14/18 08/13/18 Range/Units 04:55 04:55 15:30 WBC 7.2 (4.8-10.8) x10^3/uL RBC 4.74 (4.70-6.10) 10^6/uL Hgb 13.1 L (14.0-18.0) g/dL Hct 40.4 L (42.0-52.0) % MCV 85.3 (80.0-94.0) fL MCH 27.6 (27.0-31.0) pg MCHC 32.4 (32.0-36.0) g/dL RDW 14.3 (12.0-15.0) % Plt Count 238 (130-450) 10^3/uL MPV 7.6 (7.4-11.4) fL Neut # (Auto) 3.1 (1.5-6.6) 10^3/uL Lymph # (Auto) 3.2 (1.5-3.5) 10^3/uL [place] # (Auto) 0.7 (0.0-1.0) 10^3/uL Eos # (Auto) 0.3 (0.0-0.7) 10^3/uL Baso # (Auto) 0.1 (0.0-0.1) 10^3/uL Absolute Nucleated RBC 0.01 x10^3/uL Nucleated RBC % 0.1 /100WBC Sodium 140 (135-145) mmol/L Potassium 4.0 (3.5-5.0) mmol/L Chloride 105 (101-111) mmol/L Carbon Dioxide 29 (21-32) mmol/L Anion Gap 6.0 (6-13) BUN 16 (6-20) mg/dL Creatinine 1.1 (0.6-1.2) mg/dL Estimated GFR (MDRD) 91 (>89) Glucose 95 (70-100) mg/dL Calcium 8.8 (8.5-10.3) mg/dL Magnesium 2.1 (1.7-2.8) mg/dL Total Bilirubin 0.9 (0.2-1.0) mg/dL AST 20 (10-42) IU/L ALT 17 (10-60) IU/L Alkaline Phosphatase 50 (42-121) IU/L Total Protein 5.8 L (6.7-8.2) g/dL Albumin 3.4 (3.2-5.5) g/dL Globulin 2.4 (2.1-4.2) g/dL Albumin/Globulin Ratio 1.4 (1.0-2.2) Lipase 38 (22-51) U/L Urine Opiates Screen POSITIVE H (NEGATIVE) Ur Oxycodone Screen POSITIVE H (NEGATIVE) Urine Methadone Screen NEGATIVE (NEGATIVE) Ur Propoxyphene Screen NEGATIVE (NEGATIVE) Ur Barbiturates Screen NEGATIVE (NEGATIVE) Ur Tricyclics Screen NEGATIVE (NEGATIVE) Ur Phencyclidine Scrn NEGATIVE (NEGATIVE) Ur Amphetamine Screen NEGATIVE (NEGATIVE) U Methamphetamines Scrn NEGATIVE (NEGATIVE) U Benzodiazepines Scrn NEGATIVE (NEGATIVE) Urine Cocaine Screen NEGATIVE (NEGATIVE) U Cannabinoids Screen POSITIVE H (NEGATIVE) ABX Reporting Has patient been on IV antibiotics over the past 48 hours?: No Sepsis Event Note (H) - Evaluation Current Stage of Sepsis: Ruled out Assessment/Plan - Problem List (1) Intractable nausea and vomiting Impression: 08/14 pt still can not tolerate even full liquid diet. pt's UDS test reveals positive for cannabinoid. pt had multiple image studies which could not have significant findings. keep clear liquid diet continue IVF of NS continue anti-emesis PRN pain control advise pt followup [employer] to finish his studies It is pt's choice to continue to have cannabinoid but advise pt completely quit it to see if it is the cause of all these symptoms. 08/13 pt has hx of cannabionoid resume, pt may have hyperemesis cannabinoid syndrome. pt had multiple admission with similar symptoms. In 2018 pt had multiple abdomen image study which reveals unremarkable. Pt can not tolerate the diet yet, and N/V and abdominal pain again Pt state he is waiting his diagnosis result from his GI doctor. continue anti-emetics PRN, IVF fluid, pain control, and clear diet (2) HTN controlled continue Norvasc, and PRN Hydralazine it appear to be caused by his abdominal pain and distress. continue home meds Norvas, add hydralazine PRN continue vital monitor Qualifiers: Vomiting type: cyclical vomiting Qualified Code(s): G43.A1 - Cyclical vomiting, intractable
[2018-08-14] MEDS: hydrALAZINE INJ 20 MG/ML VIAL IVP PRN (16:05)
[2018-08-14] MEDS ORDERED: hydrALAZINE INJ 20 MG/ML VIAL IVP ONE (19:38)
[2018-08-14] MEDS: LORazepam 2 MG/ML VIAL IVP PRN (19:56)
[2018-08-14] MEDS: SODIUM CHLORIDE FLUSH 0.9% 10 ML SYRINGE IVP PRN (21:41)
[2018-08-14] MEDS: AMITRIPTYLINE 25 MG TABLET PO SCH (21:41)
[2018-08-15] MEDS: oxyCODONE 5 MG TABLET PO PRN ×2 (00:26→12:08)
[2018-08-15] MEDS: SODIUM CHLORIDE FLUSH 0.9% 10 ML SYRINGE IVP SCH ×2 (01:10→10:28)
[2018-08-15] MEDS: LACTATED RINGERS 1,000 ML IV SCH (03:50)
[2018-08-15 06:01] LABS: BASOPHILS # (AUTO) 0.1 10^3/uL (0.0-0.1); BASOPHILS % (AUTO) 0.9 %; EOSINOPHILS # (AUTO) 0.3 10^3/uL (0.0-0.7); EOSINOPHILS % (AUTO) 3.5 %; HGB - HEMOGLOBIN 13.9 g/dL (14.0-18.0); LYMPHOCYTES # (AUTO) 3.1 10^3/uL (1.5-3.5); MEAN CORPUSCULAR HEMOGLOBIN 27.3 pg (27.0-31.0); MEAN CORPUSCULAR HGB CONC 32.6 g/dL (32.0-36.0); MEAN CORPUSCULAR VOLUME 83.8 fL (80.0-94.0); MEAN PLATELET VOLUME 7.2 fL (7.4-11.4); MONOCYTES % (AUTO) 12.6 %; NEUTROPHILS # (AUTO) 3.5 10^3/uL (1.5-6.6); PLT - PLATELET COUNT 234 10^3/uL (130-450)
[2018-08-15 06:16] LABS: ALBUMIN 3.7 g/dL (3.2-5.5); ALBUMIN/GLOBULIN RATIO 1.5 (1.0-2.2); BILIRUBIN,TOTAL 1.1 mg/dL (0.2-1.0); CALCIUM 8.9 mg/dL (8.5-10.3); CREATININE 0.9 mg/dL (0.6-1.2); TOTAL PROTEIN 6.2 g/dL (6.7-8.2)
[2018-08-15] MEDS ORDERED: POTASSIUM CHLORIDE 20 MEQ TABLET PO ONE (09:26)
[2018-08-15] MEDS: POLYETHYLENE GLYCOL 3350 17 GM PACKET PO SCH (10:28)
[2018-08-15] MEDS: amLODIPine 5 MG TABLET PO SCH (10:28)
[2018-08-15] MEDS: PANTOPRAZOLE 40 MG VIAL IV SCH (10:28)
[2018-08-15 11:26] VITALS: BP 136/81
--- NOTE | 2018-08-15 11:38 | Discharge Plan ---
Discharge Plan Disposition: Home, Self Care Condition: Good Prescriptions: Ondansetron HCl [Zofran] 8 mg PO Q4H PRN #25 tablet PRN Reason: Nausea / Vomiting oxyCODONE [Roxicodone] 5 mg PO Q4-6H PRN #25 tablet PRN Reason: Abdominal Pain Promethazine Supp [Phenergan Supp] 25 mg [place] Q6H PRN #10 supp PRN Reason: Nausea / Vomiting Diet: Regular Activity Restrictions: Activity as Tolerated Shower Restrictions: No Driving Restrictions: No Instruction Topics: Abdominal Pain, Hypertension Control, Nausea Vomit Control Additional Instructions or Follow Up instructions: You were admitted for nausea and vomiting. You were given IV fluids, bowel rest and your diet was resumed. You were checked for pancreatitis each day of your stay and all lipase levels remained normal. You have had multiple ED visits for this complaint, imaging, and other out patient work up. I have given you medications for nausea, a few suppositories as requested and a short course of oxycodone to ensure that you will do well at home. Please see your PCP within one week. No Smoking: If you smoke, Please STOP! Call for help.
[2018-08-15] MEDS: ONDANSETRON 4 MG/2 ML VIAL IVP PRN (12:08)
[2018-08-15] MEDS ORDERED: LORazepam 0.5 MG TABLET PO PRN (13:44)
[2018-08-15] MEDS ORDERED: MAGNESIUM CITRATE 296 ML BOTTLE PO PRN (13:44)
--- NOTE | 2018-08-15 16:32 | DISCHARGE SUMMARY ---
Discharge Summary Admit Date: 08/12/18 Discharge Date: 08/15/18 Discharging Provider: SURESH Hairston Primary Care Provider: none Code Status: Attempt Resuscitation Condition at Discharge: Good Discharge Disposition: Home, Self Care - DIAGNOSES Admission Diagnoses: Intractable nausea and vomiting (R11.2) Discharge Diagnoses with Status of Each Condition: Intractable nausea and vomiting (R11.2) resolved. HTN (hypertension) (I10) chronic, stable. Hypokalemia (E87.6) resolved. Abdominal pain (R10.9) resolved. History of pancreatitis (Z87.19) chronic, stable. Dehydration (E86.0) resolved. Tobacco dependence (F17.200) chronic, stable. Marijuana abuse (F12.10) chronic, stable. Gastroparesis (K31.84) chronic, stable. Anxiety with depression (F41.8) chronic, stable. - HPI History of Present Illness: HPI per Dr. Haney: This patient is a 37-year-old male who has an unfortunate history of cyclic vomiting syndrome and is very well-known to this facility due to frequent hospital visits. In fact he was here yesterday, and once today after being discharged, he returned to the emergency room again with the same symptoms of intractable nausea and vomiting and abdominal pain and after multiple attempts with antiemetics including Phenergan, Compazine, Zofran, and Haldol, the patient is still unable to keep anything down and tolerate anything by mouth. In the most recent workup in the emergency room his labs are reassuring with no significant abnormalities on the metabolic panel ordered or on the CBC ordered on the previous visit today. 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 Hospitalist service was asked to admit patient For further treatment of the current episode of intractable nausea and vomiting. - HOSPITAL COURSE Hospital Course: The patient's electrolytes were replaced, he was given IV fluid hydration, and his symptoms resolved. He was encouraged to establish a PCP, and was discharged home. - ALLERGIES Allergies/Adverse Reactions: Allergies Allergy/AdvReac Type Severity Reaction Status Date / Time morphine Allergy Hives Verified 08/11/18 04:14 - MEDICATIONS Home Medications: Ambulatory Orders Medication Instructions Recorded Confirmed Omeprazole 40 mg PO QPM 02/09/18 08/12/18 Amitriptyline [Elavil] 25 mg PO HS #45 tablet 05/20/18 08/12/18 Ondansetron Odt [Zofran Odt] 4 mg TL Q6H PRN #10 tablet 08/11/18 08/12/18 Promethazine [Phenergan] 25 mg PO Q6H PRN #10 tab 08/11/18 08/12/18 Ondansetron HCl [Zofran] 8 mg PO Q4H PRN #25 tablet 08/15/18 Promethazine Supp [Phenergan Supp] 25 mg [place] Q6H PRN #10 supp 08/15/18 oxyCODONE [Roxicodone] 5 mg PO Q4-6H PRN #25 tablet 08/15/18 - PHYSICAL EXAM AT DISCHARGE General Appearance: positive: No acute distress, Alert Eyes Bilateral: positive: Normal inspection, PERRL ENT: positive: ENT inspection nml, Pharynx nml, No signs of dehydration Neck: positive: Thyroid nml, No JVD, Trachea midline Respiratory: positive: Chest non-tender, No respiratory distress, Breath sounds nml Cardiovascular: positive: Regular rate & rhythm, No gallop Peripheral Pulses: positive: 2+ Abdomen: positive: Non-tender, Nml bowel sounds Back: positive: Nml inspection Skin: positive: Color nml, No rash, Warm, Dry Extremities: positive: Non-tender, Full ROM, Nml appearance Neurologic/Psychiatric: positive: Oriented x3, CN's nml (2-12), Motor nml, Sensation nml, Depressed mood/affect Reflexes: Bicep (R): 4+, Bicep (L): 4+ - LABS Result Diagrams: 08/15/18 05:53 08/15/18 05:53 - SEPSIS Current Stage of Sepsis: Ruled out - FOLLOW UP Follow Up: Disposition: Home Prescriptions: Ondansetron HCl [Zofran] 8 mg PO Q4H PRN #25 tablet PRN Reason: Nausea / Vomiting oxyCODONE [Roxicodone] 5 mg PO Q4-6H PRN #25 tablet PRN Reason: Abdominal Pain Promethazine Supp [Phenergan Supp] 25 mg [place] Q6H PRN #10 supp PRN Reason: Nausea / Vomiting Additional Instructions or Follow Up instructions: You were admitted for nausea and vomiting. You were given IV fluids, bowel rest and your diet was resumed. You were checked for pancreatitis each day of your stay and all lipase levels remained normal. You have had multiple ED visits for this complaint, imaging, and other out patient work up. I have given you medications for nausea, a few suppositories as requested and a short course of oxycodone to ensure that you will do well at home. Please see your PCP within one week. - TIME SPENT Time Spent in Discharge (Minutes): 45
[2018-08-15] MEDS ORDERED: SODIUM CHLORIDE FLUSH 0.9% 10 ML SYRINGE ONE (18:38)
[2018-08-19 13:51] LABS: DOPAMINE <20 pg/mL; EPINEPHRINE 46 pg/mL; NOREPINEPHRINE 528 pg/mL
[2018-08-21 21:37] LABS: METANEPHRINE 132 mcg/24 h (36-190); NORMETANEPHRINE 369 mcg/24 h (35-482); TOTAL VOLUME 3050 mL
[2018-08-22 17:56] LABS: CALCULATED TOTAL (E+NE) URINE 59 (9-74); DOPAMINE URINE 49 (40-390); EPINEPHRINE URINE 3 (2-16); NOREPINEPHRINE URINE 56 (7-65)
== END 2018-08-15 15:01 | disposition home or self-care (01) | DRG 392 ==
LOC: EDUNIT# → EDBD → ED 16:26 → MS2 20:15 → OBSVTOIN 08-14 14:39
PROVIDERS: ADMIT Nurse Practitioner Gerontology; ATTEND Nurse Practitioner
DX: K31.84 Gastroparesis (principal); G89.29 Other chronic pain; R10.9 Unspecified abdominal pain; I10 Essential (primary) hypertension; F32.9 Major depressive disorder, single episode, unspecified; F41.9 Anxiety disorder, unspecified; Z88.6 Allergy status to analgesic agent; F17.210 Nicotine dependence, cigarettes, uncomplicated; E87.6 Hypokalemia; E86.0 Dehydration; F12.10 Cannabis abuse, uncomplicated
CPT/HCPCS: 36415; 80053; 80306; 82384; 83690; 83735; 83835; 84484; 85025; 96365; 96366; 96367; 96375; 96376; 99283; 99284

== ENCOUNTER 2018-11-11 21:05 | Outpatient (CLI) | payer MEDICAID | END 2018-11-11 21:06 | disposition critical access hospital (66) | LOC: EMS 21:05 | PROVIDERS: ATTEND Surgery | DX: R10.12 Left upper quadrant pain (principal); R11.2 Nausea with vomiting, unspecified; R19.7 Diarrhea, unspecified | CPT/HCPCS: A0425; A0429; A0999 ==

== ENCOUNTER 2018-11-11 21:20 | Emergency (ER) | payer MEDICAID ==
--- NOTE | 2018-11-11 21:27 | ED Physician Documentation ---
History of Present Illness - Stated complaint Stated Complaint: ABD PAIN - Chief complaint Chief Complaint: Abd Pain - History obtained from History obtained from: Patient - History of Present Illness Timing: Prior to arrival - Additonal information Additional information: Patient is a 37-year-old male with history of marijuana use, cyclical vomiting, and pancreatitis presenting with sudden onset of upper left abdominal discomfort with nausea, vomiting, and diarrhea several hours ago after eating pizza. Patient denies symptoms similar to his usual GERD. Patient denies urinary changes, fever, or other concerns. Patient's last marijuana intake was on 11/04/2018. Patient denies other drugs or alcohol recently. No improving or worsening factors to his symptoms noted. Review of Systems Constitutional: denies: Fever GI: reports: Abdominal Pain, Nausea, Vomiting, Diarrhea PD PAST MEDICAL HISTORY - Past Medical History Cardiovascular: Hypertension Respiratory: None Neuro: None Endocrine/Autoimmune: None GI: GERD, Pancreatitis : None HEENT: None Psych: Depression, Anxiety, Other Musculoskeletal: None Derm: None - Past Surgical History Past Surgical History: Yes Ortho: Other - Present Medications Home Medications: Ambulatory Orders Medication Instructions Recorded Confirmed Omeprazole 40 mg PO QPM 02/09/18 08/12/18 Amitriptyline [Elavil] 25 mg PO HS #45 tablet 05/20/18 08/12/18 Ondansetron Odt [Zofran Odt] 4 mg TL Q6H PRN #10 tablet 08/11/18 08/12/18 Promethazine [Phenergan] 25 mg PO Q6H PRN #10 tab 08/11/18 08/12/18 Ondansetron HCl [Zofran] 8 mg PO Q4H PRN #25 tablet 08/15/18 Promethazine Supp [Phenergan Supp] 25 mg [place] Q6H PRN #10 supp 08/15/18 oxyCODONE [Roxicodone] 5 mg PO Q4-6H PRN #25 tablet 08/15/18 - Allergies Allergies/Adverse Reactions: Allergies Allergy/AdvReac Type Severity Reaction Status Date / Time morphine Allergy Hives Verified 08/11/18 04:14 - Social History Does the pt smoke?: Yes Smoking Status: Current every day smoker Does the pt drink ETOH?: No Does the pt have substance abuse?: No - Immunizations Immunizations are current?: Yes - POLST Patient has POLST: No POLST Status: Full Code PD ED PE NORMAL - General General: Alert and oriented X 3, No acute distress, Well developed/nourished - HEENT HEENT: Moist mucous membranes, Pharynx benign - Cardiac Cardiac: RRR, No murmur - Respiratory Respiratory: No respiratory distress, Clear bilaterally - Abdomen Abdomen: Normal bowel sounds, Soft, Non tender, Non distended - Derm Derm: Normal color, Warm and dry, No rash - Extremities Extremities: No deformity, No tenderness to palpate - Neuro Neuro: Alert and oriented X 3, No motor deficit, No sensory deficit - Psych Psych: Normal mood, Normal affect Results - Vitals Vitals: Vital Signs - 24 hr 11/11/18 11/11/18 21:20 23:19 Temperature 37.4 C Heart Rate 81 73 Respiratory 16 17 Rate Blood Pressure 191/141 H 162/117 H O2 Saturation 97 99 Oxygen O2 Source Room air - EKG (time done) 2211 Rate: Rate (enter#) (Incorrect-documented on wrong placement, no EKG done) - Labs Labs: Laboratory Tests 11/11/18 11/11/18 11/11/18 21:30 21:30 22:50 WBC 7.5 RBC 5.22 Hgb 14.3 Hct 44.0 MCV 84.3 MCH 27.4 MCHC 32.6 RDW 14.5 Plt Count 282 MPV 7.4 Neut # (Auto) 4.2 Lymph # (Auto) 2.4 [place] # (Auto) 0.6 Eos # (Auto) 0.2 Baso # (Auto) 0.1 Absolute Nucleated RBC 0.00 Nucleated RBC % 0.0 Sodium 137 Potassium 3.8 Chloride 99 L Carbon Dioxide 25 Anion Gap 13.0 BUN 20 Creatinine 1.0 Estimated GFR (MDRD) 102 Glucose 94 Calcium 9.4 Total Bilirubin 0.5 AST 36 ALT 30 Alkaline Phosphatase 71 Total Protein 7.8 Albumin 4.6 Globulin 3.2 Albumin/Globulin Ratio 1.4 Lipase 47 Urine Color YELLOW Urine Clarity CLEAR Urine pH 6.5 Ur Specific Tad 1.020 Urine Protein TRACE Urine Glucose (UA) NEGATIVE Urine Ketones TRACE Urine Occult Blood NEGATIVE Urine Nitrite NEGATIVE Urine Bilirubin NEGATIVE Urine Urobilinogen 0.2 (NORMAL) Ur Leukocyte Esterase NEGATIVE Ur Microscopic Review NOT INDICATED Urine Culture Comments NOT INDICATED Urine Opiates Screen NEGATIVE Ur Oxycodone Screen NEGATIVE Urine Methadone Screen NEGATIVE Ur Propoxyphene Screen NEGATIVE Ur Barbiturates Screen NEGATIVE Ur Tricyclics Screen NEGATIVE Ur Phencyclidine Scrn NEGATIVE Ur Amphetamine Screen NEGATIVE U Methamphetamines Scrn NEGATIVE U Benzodiazepines Scrn NEGATIVE Urine Cocaine Screen NEGATIVE U Cannabinoids Screen POSITIVE H PD MEDICAL DECISION MAKING - ED course Complexity details: reviewed old records, reviewed results, re-evaluated patient, considered differential, d/w patient ED course: Feel that patient may be experiencing acute on chronic abdominal pain, GERD, pancreatitis, cyclical vomiting from marijuana use and have lower suspicion for other acute abdominal issues such as gallbladder disease, appendicitis, small bowel obstruction, diverticulitis, pyonephritis, kidney stones, UTI. Patient reports symptoms started immediately after eating food and feel that this could be a contributor, particularly from a pancreatitis or GERD standpoint. Patient also reports recent marijuana use, which could be contributing. Physical exam reveals a benign abdomen. No surgical abdomen present. At this time, feel appropriate to start with IV fluids, as well his medications of Zofran, GI cocktail and Ativan while obtaining blood and urine. Did discuss possibility of imaging, although given chronicity, benign exam, feel this is not an absolute need.Screening lab work and urinalysis returned unremarkable. Drug screen returned positive for marijuana. Patient did complain of nausea, although had no further vomiting or other symptoms while in the ED. Patient ambulating without issue. Patient did receive a second dose of Zofran, as well as Toradol given his persistent complaints. At this time, do not feel patient requires emergent imaging, particularly given chronicity of complaints of benign abdomen. Feel that patient is safe to discharge home and discussed supportive cares, return precautions, cessation of marijuana, and appropriate follow-up. Patient voiced understanding and is comfortable with discharge plan. Departure - Departure Disposition: 01 Home, Self Care Clinical Impression: Vomiting Qualifiers: Vomiting type: unspecified Vomiting Intractability: non-intractable Nausea presence: with nausea Qualified Code(s): R11.2 - Nausea with vomiting, unspecified Condition: Good Instructions: ED Abdominal Pain Unkn Cause, ED Nausea Vomiting Follow-Up: Kristin Hansen WELDING OPERATOR [Primary Care Provider] - Within 3 Days Comments: Recommend avoidance of alcohol and marijuana use. Recommend staying away from spicy, fatty, fried foods until you are feeling better. Advance your diet as t olerated and stay hydrated with Powerade/Gatorade. Please follow-up with your primary care physician in the next 2 to 3 days and return to ED sooner if experience worsening symptoms or other concerns.
[2018-11-11] MEDS ORDERED: LORazepam 2 MG/ML VIAL IVP STA (21:31)
[2018-11-11] MEDS ORDERED: ONDANSETRON 4 MG/2 ML VIAL IVP STA ×2 (21:31→23:00)
[2018-11-11] MEDS ORDERED: SODIUM CHLORIDE 0.9% 1,000 ML IV ONE (21:31)
[2018-11-11] MEDS ORDERED: MAG HYDROX/AL HYDROX/SIMETH 30 ML UDC PO STA (21:32)
[2018-11-11] MEDS ORDERED: LIDOCAINE VISCOUS 2% 15 ML UDC MM STA (21:32)
[2018-11-11 21:37] LABS: BASOPHILS # (AUTO) 0.1 10^3/uL (0.0-0.1); BASOPHILS % (AUTO) 1.6 %; EOSINOPHILS # (AUTO) 0.2 10^3/uL (0.0-0.7); HGB - HEMOGLOBIN 14.3 g/dL (14.0-18.0); LYMPHOCYTES # (AUTO) 2.4 10^3/uL (1.5-3.5); LYMPHOCYTES % (AUTO) 32.4 %; MEAN CORPUSCULAR HEMOGLOBIN 27.4 pg (27.0-31.0); MEAN CORPUSCULAR HGB CONC 32.6 g/dL (32.0-36.0); MEAN CORPUSCULAR VOLUME 84.3 fL (80.0-94.0); MEAN PLATELET VOLUME 7.4 fL (7.4-11.4); MONOCYTES # (AUTO) 0.6 10^3/uL (0.0-1.0); MONOCYTES % (AUTO) 7.5 %; NEUTROPHILS # (AUTO) 4.2 10^3/uL (1.5-6.6); NEUTROPHILS % (AUTO) 55.5 %; PLT - PLATELET COUNT 282 10^3/uL (130-450); RED BLOOD COUNT 5.22 10^6/uL (4.70-6.10); RED CELL DISTRIBUTION WIDTH 14.5 % (12.0-15.0); WHITE BLOOD COUNT 7.5 x10^3/uL (4.8-10.8)
[2018-11-11 21:54] LABS: ALBUMIN 4.6 g/dL (3.2-5.5); ALBUMIN/GLOBULIN RATIO 1.4 (1.0-2.2); BILIRUBIN,TOTAL 0.5 mg/dL (0.2-1.0); CALCIUM 9.4 mg/dL (8.5-10.3); TOTAL PROTEIN 7.8 g/dL (6.7-8.2)
[2018-11-11 22:57] LABS: BILIRUBIN,URINE NEGATIVE (NEGATIVE); GLUCOSE, URINE (UA) NEGATIVE (NEGATIVE); KETONES,URINE (UA) TRACE mg/dL (NEGATIVE); LEUKOCYTE ESTERASE, URINE NEGATIVE (NEGATIVE); MUDS CUTOFF CONCENTRATIONS CUTOFF CONC BELOW:; NITRITE,URINE NEGATIVE (NEGATIVE); OCCULT BLOOD,URINE NEGATIVE (NEGATIVE); PH,URINE 6.5 PH (5.0-7.5); PROTEIN,URINE TRACE mg/dL (NEGATIVE); UROBILINOGEN,URINE 0.2 (NORMAL) E.U./dL (NORMAL)
[2018-11-11 22:58] LABS: CLARITY,URINE CLEAR (CLEAR)
[2018-11-11] MEDS ORDERED: KETOROLAC 30 MG/ML VIAL IVP STA (23:00)
[2018-11-11 23:08] LABS: AMPHETAMINE SCREEN,URINE NEGATIVE (NEGATIVE); BENZODIAZEPINES SCREEN, URINE NEGATIVE (NEGATIVE); COCAINE SCREEN URINE NEGATIVE (NEGATIVE); METHADONE SCREEN, URINE NEGATIVE (NEGATIVE); METHAMPHETAMINES SCREEN, URINE NEGATIVE (NEGATIVE); OPIATE SCREEN, URINE NEGATIVE (NEGATIVE); OXYCODONE SCREEN, URINE NEGATIVE (NEGATIVE); PROPOXYPHENE SCREEN, URINE NEGATIVE (NEGATIVE); TRICYCLIC ANTIDEPRESSANT,URINE NEGATIVE (NEGATIVE)
[2018-11-11 23:49] VITALS: BP 180/120
== END 2018-11-11 23:58 | disposition home or self-care (01) ==
LOC: EDBD → EDUNIT# → ED 21:20
DX: R11.2 Nausea with vomiting, unspecified (principal); I10 Essential (primary) hypertension; F17.200 Nicotine dependence, unspecified, uncomplicated
CPT/HCPCS: 36415; 80053; 80306; 81003; 83690; 85025; 99283; 99284; A9270; J2060; 81001; 87086

== ENCOUNTER 2018-11-12 03:36 | Outpatient (CLI) | payer MEDICAID | END 2018-11-12 03:37 | disposition critical access hospital (66) | LOC: EMS 03:36 | PROVIDERS: ATTEND Surgery | DX: R10.9 Unspecified abdominal pain (principal); R11.2 Nausea with vomiting, unspecified | CPT/HCPCS: A0425; A0429; A0999 ==

== ENCOUNTER 2018-11-12 04:00 | Emergency (ER) | payer MEDICAID ==
--- NOTE | 2018-11-12 04:06 | ED Physician Documentation ---
History of Present Illness - Stated complaint Stated Complaint: ABD PAIN - Chief complaint Chief Complaint: Abd Pain - History obtained from History obtained from: Patient - Additonal information Additional information: Please refer to note and HPI from several hours ago when patient was last seen in the ED by this physician. During ED stay, patient received Zofran 8 mg, Ativan 1 mg, Toradol 30 mg, and GI cocktail. Work-up also included obtaining lab and urinalysis testing. Work-up returned unremarkable including no significant leukocytosis, electrolyte abnormalities, acute kidney injury, or o ther pathology. Urinalysis also unremarkable. Drug testing positive for marijuana. Patient reports that he has experienced continued nausea and vomiting since being discharged several hours ago. Patient also describes his discomfort as burning. Patient reports that he tried to take Prilosec without improvement. Patient denies new diarrhea, fever, or other changes from previously. No other improving or worsening factors noted. Review of Systems GI: reports: Abdominal Pain, Nausea, Vomiting PD PAST MEDICAL HISTORY - Past Medical History Cardiovascular: Hypertension Respiratory: None Neuro: None Endocrine/Autoimmune: None GI: GERD, Pancreatitis : None HEENT: None Psych: Depression, Anxiety, Other Musculoskeletal: None Derm: None - Past Surgical History Past Surgical History: Yes Ortho: Other - Present Medications Home Medications: Ambulatory Orders Medication Instructions Recorded Confirmed Omeprazole 40 mg PO QPM 02/09/18 08/12/18 Amitriptyline [Elavil] 25 mg PO HS #45 tablet 05/20/18 08/12/18 Ondansetron Odt [Zofran Odt] 4 mg TL Q6H PRN #10 tablet 08/11/18 08/12/18 Promethazine [Phenergan] 25 mg PO Q6H PRN #10 tab 08/11/18 08/12/18 Ondansetron HCl [Zofran] 8 mg PO Q4H PRN #25 tablet 08/15/18 Promethazine Supp [Phenergan Supp] 25 mg [place] Q6H PRN #10 supp 08/15/18 oxyCODONE [Roxicodone] 5 mg PO Q4-6H PRN #25 tablet 08/15/18 Ondansetron Odt [Zofran] 4 mg TL Q6H PRN #10 tablet 11/12/18 - Allergies Allergies/Adverse Reactions: Allergies Allergy/AdvReac Type Severity Reaction Status Date / Time morphine Allergy Hives Verified 08/11/18 04:14 - Social History Does the pt smoke?: Yes Smoking Status: Current every day smoker Does the pt drink ETOH?: No Does the pt have substance abuse?: No - Immunizations Immunizations are current?: Yes - POLST Patient has POLST: No POLST Status: Full Code PD ED PE NORMAL - General General: Alert and oriented X 3, No acute distress, Well developed/nourished - HEENT HEENT: Moist mucous membranes - Cardiac Cardiac: RRR, No murmur - Respiratory Respiratory: No respiratory distress, Clear bilaterally - Abdomen Abdomen: Normal bowel sounds, Soft, Non tender, Non distended - Derm Derm: Normal color, Warm and dry, No rash, Other - Extremities Extremities: No deformity, No tenderness to palpate, No edema - Neuro Neuro: Alert and oriented X 3, No motor deficit, No sensory deficit - Psych Psych: Normal mood, Normal affect Results - Vitals Vitals: Vital Signs - 24 hr 11/12/18 04:01 Temperature 36.3 C L Heart Rate 90 Respiratory 18 Rate Blood Pressure 192/126 H O2 Saturation 98 Oxygen O2 Source Room air PD MEDICAL DECISION MAKING - ED course Complexity details: reviewed old records, re-evaluated patient, considered differential, d/w patient ED course: Please refer to note and MDM from earlier this shift regarding the patient's prior presentation and work-up. Patient denies significant changes in symptoms that raise high suspicion for new pathology. Again, have low suspicion for gallbladder disease, appendicitis, small bowel obstruction, diverticulitis, AAA, but considered. Also have low suspicion for renal disease like pyelonephritis, nephrolithiasis, as well as UTI, but considered. Patient appears well- hydrated. Reviewed lab work and urinalysis again. No significant leukocytosis, acute kidney injury, electrolyte abnormality to indicate profound dehydration or significant electrolyte imbalance.Patient comfortable upon arrival and sleeping. Abdominal exam remains benign with no rebound or guarding. No surgical abdomen present. Again, I do not feel emergent imaging is required.Given recent evaluation, do not feel repeat blood work and urinalysis testing is required. Discussed IM Phenergan and also ordered oral famotidine. Discussed other antiemetic for home. Otherwise, feel that patient is safe for discharge following medication administration. Patient did arrive initially hypertensive, which is similar to previous visit. Patient has known hypertension and repeat measurements declined appropriately. Do not feel patient's hypertension is contributing to his symptoms today. Do not feel that patient is experiencing any emergent or urgent hypertensive crisis. Departure - Departure Disposition: 01 Home, Self Care Clinical Impression: Vomiting Qualifiers: Vomiting type: unspecified Vomiting Intractability: non-intractable Nausea presence: with nausea Qualified Code(s): R11.2 - Nausea with vomiting, unspecif ied Condition: Good Instructions: ED Diet Vomiting Diarrhea Follow-Up: Kristin Hansen ARNP [Primary Care Provider] - Within 3 Days Prescriptions: Ondansetron Odt [Zofran] 4 mg TL Q6H PRN #10 tablet PRN Reason: Nausea / Vomiting Comments: Please take Zofran as prescribed for nausea and vomiting control at home. Recommend clear liquid diet and advancing diet as tolerated. Also recommend continued use of home medications, including antacid medications. Please avoid marijuana and alcohol. Follow-up with your primary care physician in the next 2 to 3 days and return to ED sooner if experience worsening symptoms or other concerns.
[2018-11-12] MEDS ORDERED: PROMETHAZINE 25 MG/1 ML VIAL IM STA (04:29)
[2018-11-12] MEDS ORDERED: FAMOTIDINE 20 MG TABLET PO STA (04:30)
[2018-11-12] MEDS ORDERED: ONDANSETRON ODT 4 MG Prepack 2 TL PRN (04:55)
[2018-11-12 05:09] VITALS: BP 202/127
== END 2018-11-12 05:08 | disposition home or self-care (01) ==
LOC: EDUNIT# → ED 04:00
DX: R11.2 Nausea with vomiting, unspecified (principal); R10.9 Unspecified abdominal pain; K21.9 Gastro-esophageal reflux disease without esophagitis; I10 Essential (primary) hypertension; F17.200 Nicotine dependence, unspecified, uncomplicated
CPT/HCPCS: 99283

== ENCOUNTER 2018-11-12 17:49 | Outpatient (CLI) | payer MEDICAID | END 2018-11-12 17:50 | disposition critical access hospital (66) | LOC: EMS 17:49 | PROVIDERS: ATTEND Surgery | DX: R10.12 Left upper quadrant pain (principal); R11.2 Nausea with vomiting, unspecified | CPT/HCPCS: A0425; A0427; A0999 ==

== ENCOUNTER 2018-11-12 18:16 | Emergency (ER) | payer MEDICAID ==
[2018-11-12] MEDS ORDERED: SODIUM CHLORIDE 0.9% 1,000 ML IV ONE (18:25)
[2018-11-12] MEDS ORDERED: HALOPERIDOL 5 MG/ML VIAL IVP ONE (18:25)
[2018-11-12] MEDS ORDERED: oxyCODONE 5 MG TABLET PO STA (18:25)
[2018-11-12] MEDS ORDERED: KETOROLAC 30 MG/ML VIAL IVP STA (18:25)
[2018-11-12] MEDS ORDERED: MAG HYDROX/AL HYDROX/SIMETH 30 ML UDC PO STA (18:25)
[2018-11-12] MEDS ORDERED: LIDOCAINE VISCOUS 2% 15 ML UDC MM STA (18:25)
--- NOTE | 2018-11-12 18:27 | ED Physician Documentation ---
PD HPI NVD - Stated complaint Stated Complaint: ABD PAIN - Chief complaint Chief Complaint: Abd Pain - History obtained from History obtained from: Patient, EMS - History of Present Illness Timing - onset: Yesterday (37-year-old gentleman with chronic recurrent upper abdominal pain and vomiting presents by EMS for an exacerbation of same starting after eating what he thinks was bad food consisting of peanut pizza and fries yesterday afternoon. He was seen twice overnight and received incomplete relief with medications here. Returns for continued left upper abdominal pain which is nonradiating similar to prior episodes of same. Of note he has had complete work-ups for this including endoscopies, MRCP, CAT scans, GI referral without specific diagnosis. He says he does not smoke marijuana more than about once a week but he is never had a negative drug screen for same since he started having these problems and he had a positive drug screen last night.) Review of Systems Constitutional: reports: Reviewed and negative Cardiac: reports: Reviewed and negative Respiratory: reports: Reviewed and negative PD PAST MEDICAL HISTORY - Past Medical History Cardiovascular: Hypertension Respiratory: None Neuro: None Endocrine/Autoimmune: None GI: GERD, Pancreatitis : None HEENT: None Psych: Depression, Anxiety, Other Musculoskeletal: None Derm: None - Past Surgical History Past Surgical History: Yes Ortho: Other - Present Medications Home Medications: Ambulatory Orders Medication Instructions Recorded Confirmed Omeprazole 40 mg PO QPM 02/09/18 08/12/18 Amitriptyline [Elavil] 25 mg PO HS #45 tablet 05/20/18 08/12/18 Ondansetron Odt [Zofran Odt] 4 mg TL Q6H PRN #10 tablet 08/11/18 08/12/18 Promethazine [Phenergan] 25 mg PO Q6H PRN #10 tab 08/11/18 08/12/18 Ondansetron HCl [Zofran] 8 mg PO Q4H PRN #25 tablet 08/15/18 Promethazine Supp [Phenergan Supp] 25 mg [place] Q6H PRN #10 supp 08/15/18 oxyCODONE [Roxicodone] 5 mg PO Q4-6H PRN #25 tablet 08/15/18 Ondansetron Odt [Zofran] 4 mg TL Q6H PRN #10 tablet 11/12/18 - Allergies Allergies/Adverse Reactions: Allergies Allergy/AdvReac Type Severity Reaction Status Date / Time morphine Allergy Hives Verified 11/12/18 18:22 - Social History Does the pt smoke?: Yes Smoking Status: Current every day smoker Does the pt drink ETOH?: No Does the pt have substance abuse?: No - Immunizations Immunizations are current?: Yes - POLST Patient has POLST: No POLST Status: Full Code PD ED PE NORMAL - Vitals Vital signs reviewed: Yes - General General: Alert and oriented X 3, No acute distress - Cardiac Cardiac: RRR, No murmur - Respiratory Respiratory: No respiratory distress, Clear bilaterally - Abdomen Abdomen: Normal bowel sounds, Soft, Non tender - Neuro Neuro: Alert and oriented X 3, Normal speech - Psych Psych: Normal mood, Normal affect Results - Vitals Vitals: Vital Signs - 24 hr 11/12/18 11/12/18 18:18 18:48 Temperature 99.4 C H Heart Rate 73 54 L Respiratory 12 14 Rate Blood Pressure 140/86 H 135/87 H O2 Saturation 98 98 Oxygen O2 Source Room air - Labs Labs: Laboratory Tests 11/12/18 18:40 Sodium 137 Potassium 4.1 Chloride 101 Carbon Dioxide 25 Anion Gap 11.0 BUN 25 H Creatinine 1.1 Estimated GFR (MDRD) 91 Glucose 125 H Calcium 9.6 Total Bilirubin 0.8 AST 60 H ALT 33 Alkaline Phosphatase 66 Total Protein 8.2 Albumin 4.6 Globulin 3.6 Albumin/Globulin Ratio 1.3 Lipase 53 H PD MEDICAL DECISION MAKING - ED course ED course: This is a 37-year-old gentleman with an acute exacerbation of chronic recurrent abdominal pain. Cannabinoid hyperemesis is highly suspected. Treatment of the emergency department consisted of IV Haldol, saline, oral oxycodone and a GI cocktail and his symptoms were relieved and he requested discharge. Departure - Departure Disposition: 01 Home, Self Care Clinical Impression: Abdominal pain Qualifiers: Abdominal location: epigastric Qualified Code(s): R10.13 - Epigastric pain Condition: Good Record reviewed to determine appropriate education?: Yes Instructions: ED Abdominal Pain Unkn Cause Male Comments: Follow-up with your brass polisher and primary care physician for further evaluation and treatment.
[2018-11-12 18:57] LABS: ALBUMIN 4.6 g/dL (3.2-5.5); ALBUMIN/GLOBULIN RATIO 1.3 (1.0-2.2); BILIRUBIN,TOTAL 0.8 mg/dL (0.2-1.0); CALCIUM 9.6 mg/dL (8.5-10.3); CREATININE 1.1 mg/dL (0.6-1.2); TOTAL PROTEIN 8.2 g/dL (6.7-8.2)
[2018-11-12 19:59] VITALS: BP 120/73
== END 2018-11-12 19:59 | disposition home or self-care (01) ==
LOC: EDUNIT# → ED 18:16
DX: R10.13 Epigastric pain (principal); G89.29 Other chronic pain; R11.2 Nausea with vomiting, unspecified; K21.9 Gastro-esophageal reflux disease without esophagitis; I10 Essential (primary) hypertension; F17.200 Nicotine dependence, unspecified, uncomplicated
CPT/HCPCS: 36415; 80053; 83690; 96372; 96374; 99283; A9270

== ENCOUNTER 2019-04-05 09:38 | Emergency (ER) | payer MEDICAID ==
[2019-04-05 09:48] VITALS: BP 176/110
[2019-04-05] MEDS ORDERED: cefTRIAXone 1 GM VIAL IM STA (10:14)
[2019-04-05] MEDS ORDERED: CHERRY SYRUP 10 ML UDC PO ONE (10:14)
[2019-04-05] MEDS ORDERED: LIDOCAINE 1% 2 ML VIAL MC ONE (10:14)
[2019-04-05] MEDS ORDERED: DEXAMETHASONE 10 MG/ML VIAL PO STA (10:14)
--- NOTE | 2019-04-05 10:17 | ED Physician Documentation ---
History of Present Illness - Stated complaint Stated Complaint: FACIAL SWELLING - Chief complaint Chief Complaint: Trauma Hd/Nk - History obtained from History obtained from: Patient, Family - History of Present Illness Timing: How many days ago (8) - Additonal information Additional information: 38-year-old male with a history of pancreatitis has had a fall 8 days ago onto his face into some gravel and he abraded his right cheek like a rug burn.Since that time he has had some increased swelling and progressive redness and now has most of the right side of his face swollen including the periorbital tissues. He has not had fever. Review of Systems Constitutional: reports: Fatigue. denies: Fever Eyes: reports: Irritation. denies: Decreased vision, Photophobia Ears: denies: Ear pain Nose: denies: Rhinorrhea / runny nose, Congestion Throat: denies: Sore throat Respiratory: denies: Dyspnea, Cough GI: denies: Abdominal Pain, Nausea, Vomiting PD PAST MEDICAL HISTORY - Past Medical History Cardiovascular: Hypertension Respiratory: None Neuro: None Endocrine/Autoimmune: None GI: Pancreatitis : None HEENT: None Psych: Depression, Anxiety, Other Musculoskeletal: None Derm: None - Past Surgical History Past Surgical History: Yes Ortho: Other - Present Medications Home Medications: Ambulatory Orders Medication Instructions Recorded Confirmed Omeprazole 40 mg PO QPM 02/09/18 08/12/18 Amitriptyline [Elavil] 25 mg PO HS #45 tablet 05/20/18 08/12/18 Ondansetron Odt [Zofran Odt] 4 mg TL Q6H PRN #10 tablet 08/11/18 08/12/18 Promethazine [Phenergan] 25 mg PO Q6H PRN #10 tab 08/11/18 08/12/18 Ondansetron HCl [Zofran] 8 mg PO Q4H PRN #25 tablet 08/15/18 Promethazine Supp [Phenergan Supp] 25 mg AR Q6H PRN #10 supp 08/15/18 oxyCODONE [Roxicodone] 5 mg PO Q4-6H PRN #25 tablet 08/15/18 Ondansetron Odt [Zofran] 4 mg TL Q6H PRN #10 tablet 11/12/18 Amox/Clav 875/125 [Augmentin] 1 each PO Q12H #20 tablet 04/05/19 - Allergies Allergies/Adverse Reactions: Allergies Allergy/AdvReac Type Severity Reaction Status Date / Time morphine Allergy Hives Verified 04/05/19 09:44 - Social History Does the pt smoke?: Yes Smoking Status: Current every day smoker Does the pt drink ETOH?: No Does the pt have substance abuse?: No - Immunizations Immunizations are current?: Yes - POLST Patient has POLST: No POLST Status: Full Code PD ED PE NORMAL - Vitals Vital signs reviewed: Yes (hypertensive ) - General General: Alert and oriented X 3, No acute distress, Well developed/nourished - HEENT HEENT: PERRL, EOMI, Ears normal, Other (There is swelling to the right side of the face with erythema and tenderness as well as some superficial weeping from the right cheek. The right orbit itself is not involved the rachel-orbital tissues are swollen mildly. There is a healing laceration to the right upper lip and this specifically does not appear to be a source of infection for the face. The source appears to be the right cheek that looks like it was abraided and is now weeping and the area looks like a burn. ) - Neck Neck: Supple, no meningeal sign, No bony TTP - Respiratory Respiratory: No respiratory distress - Derm Derm: Normal color, Warm and dry - Extremities Extremities: No deformity, No edema - Neuro Neuro: Alert and oriented X 3, marketing manager 2-12 intact, No motor deficit, No sensory deficit, Normal speech Eye Opening: Spontaneous Motor: Obeys Commands Verbal: Oriented GCS Score: 15 - Psych Psych: Normal mood, Normal affect Results - Vitals Vitals: Vital Signs - 24 hr 04/05/19 09:44 Temperature 37.1 C Heart Rate 71 Respiratory 16 Rate Blood Pressure 176/110 H O2 Saturation 100 Oxygen O2 Source Room air PD MEDICAL DECISION MAKING - ED course Complexity details: considered differential, d/w patient, d/w family ED course: 38-year-old male with a fall and abrasion to his face now appears to have a facial cellulitis with some weeping. Weeping is cultured and the patient is administered dexamethasone 10 mg orally and Rocephin [address] will place him on some Augmentin. Departure - Departure Disposition: 01 Home, Self Care Clinical Impression: Facial cellulitis Instructions: ED Cellulitis Facial Follow-Up: Kristin Hansen ARNP [Primary Care Provider] - Prescriptions: Amox/Clav 875/125 [Augmentin] 1 each PO Q12H #20 tablet
== END 2019-04-05 10:35 | disposition home or self-care (01) ==
LOC: ED 09:38
DX: L03.211 Cellulitis of face (principal); S00.81XA Abrasion of other part of head, initial encounter; S01.511A Laceration without foreign body of lip, initial encounter; W18.30XA Fall on same level, unspecified, initial encounter; I10 Essential (primary) hypertension; F17.200 Nicotine dependence, unspecified, uncomplicated
CPT/HCPCS: 87070; 87205; 96372; 99283; A9270

== ENCOUNTER 2019-05-11 11:29 | Outpatient (CLI) | payer MEDICAID | END 2019-05-11 11:30 | disposition critical access hospital (66) | LOC: EMS 11:29 | PROVIDERS: ATTEND Surgery | DX: R10.9 Unspecified abdominal pain (principal); R11.2 Nausea with vomiting, unspecified | CPT/HCPCS: A0425; A0427; A0999 ==

== ENCOUNTER 2019-05-11 12:14 | Inpatient (IN) | payer MEDICAID ==
[2019-05-11 12:44] LABS: BASOPHILS # (AUTO) 0.1 10^3/uL (0.0-0.1); BASOPHILS % (AUTO) 0.8 %; EOSINOPHILS % (AUTO) 0.7 %; HGB - HEMOGLOBIN 16.1 g/dL (14.0-18.0); LYMPHOCYTES # (AUTO) 1.1 10^3/uL (1.5-3.5); LYMPHOCYTES % (AUTO) 18.2 %; MEAN CORPUSCULAR HEMOGLOBIN 27.7 pg (27.0-31.0); MEAN CORPUSCULAR HGB CONC 32.5 g/dL (32.0-36.0); MEAN CORPUSCULAR VOLUME 85.2 fL (80.0-94.0); MEAN PLATELET VOLUME 9.6 fL (7.4-11.4); MONOCYTES # (AUTO) 0.6 10^3/uL (0.0-1.0); MONOCYTES % (AUTO) 9.8 %; NEUTROPHILS # (AUTO) 4.2 10^3/uL (1.5-6.6); NEUTROPHILS % (AUTO) 70.3 %; PLT - PLATELET COUNT 260 10^3/uL (130-450); RED BLOOD COUNT 5.81 10^6/uL (4.70-6.10); RED CELL DISTRIBUTION WIDTH 15.1 % (12.0-15.0)
--- NOTE | 2019-05-11 12:49 | ED Physician Documentation ---
History of Present Illness - Stated complaint Stated Complaint: N/V - Chief complaint Chief Complaint: Abd Pain - Additonal information Additional information: This is a 38-year-old male with a history of depression, anxiety, pancreatitis, alcohol use who presents with left upper quadrant pain and vomiting that began this morning. Patient states he drank alcohol last weekend, denies any in the last 48 hours. He woke up this morning drink some coffee and began having some stomach pain that progressed to severe left upper quadrant abdominal pain. He has had multiple episodes of nonbloody and nonbilious vomiting. He states this feels identical to his past episode of pancreatitis. He denies any dysuria or fever. Review of Systems Constitutional: denies: Fever Nose: denies: Rhinorrhea / runny nose Throat: denies: Dental pain / toothache Cardiac: denies: Chest pain / pressure GI: reports: Abdominal Pain, Vomiting : denies: Dysuria Skin: denies: Rash Endocrine: reports: Reviewed and negative Immunocompromised: denies: Immunocompromised PD PAST MEDICAL HISTORY - Past Medical History Cardiovascular: Hypertension Respiratory: None Neuro: None Endocrine/Autoimmune: None GI: Pancreatitis : None HEENT: None Psych: Depression, Anxiety, Other Musculoskeletal: None Derm: None - Past Surgical History Past Surgical History: Yes Ortho: Other - Present Medications Home Medications: Ambulatory Orders Medication Instructions Recorded Confirmed Amlodipine Besylate [Norvasc] 10 mg PO BID 05/11/19 05/11/19 Venlafaxine [Effexor] 37.5 mg PO BID 05/11/19 05/11/19 - Allergies Allergies/Adverse Reactions: Allergies Allergy/AdvReac Type Severity Reaction Status Date / Time morphine Allergy Hives Verified 05/11/19 12:21 - Social History Does the pt smoke?: Yes Smoking Status: Current every day smoker Does the pt drink ETOH?: No Does the pt have substance abuse?: No - Immunizations Immunizations are current?: Yes - POLST Patient has POLST: No POLST Status: Full Code PD ED PE NORMAL - Vitals Vital signs reviewed: Yes - General General: Alert and oriented X 3, Other (Uncomfortable appearing) - HEENT HEENT: PERRL - Neck Neck: Supple, no meningeal sign - Cardiac Cardiac: RRR - Respiratory Respiratory: Clear bilaterally - Abdomen Abdomen: Other (Left upper quadrant tenderness to palpation, no right upper quadrant tenderness negative Walter sign, no right lower quadrant tenderness.) - Derm Derm: Warm and dry - Extremities Extremities: No deformity - Neuro Neuro: Alert and oriented X 3 - Psych Psych: Normal mood, Normal affect Results - Vitals Vitals: Vital Signs - 24 hr 05/11/19 05/11/19 05/11/19 12:16 14:09 16:51 Temperature 37.1 C 37.1 C 36.5 C Heart Rate 63 47 L 55 L Respiratory 18 12 14 Rate Blood Pressure 170/138 H 170/76 H O2 Saturation 97 99 97 Oxygen O2 Source Room air - Labs Labs: Laboratory Tests 05/11/19 05/11/19 05/11/19 12:37 12:37 16:46 WBC 6.0 RBC 5.81 Hgb 16.1 Hct 49.5 MCV 85.2 MCH 27.7 MCHC 32.5 RDW 15.1 H Plt Count 260 MPV 9.6 Neut # (Auto) 4.2 Lymph # (Auto) 1.1 L Baker # (Auto) 0.6 Eos # (Auto) 0.0 Baso # (Auto) 0.1 Absolute Nucleated RBC 0.00 Nucleated RBC % 0.0 Sodium 142 Potassium 4.4 Chloride 106 Carbon Dioxide 26 Anion Gap 10.0 BUN 15 Creatinine 1.1 Estimated GFR (MDRD) 91 Glucose 127 H Lactic Acid Calcium 9.8 Magnesium Total Bilirubin 0.5 AST 31 ALT 24 Alkaline Phosphatase 64 Total Protein 8.2 Albumin 5.0 Globulin 3.2 Albumin/Globulin Ratio 1.6 Lipase 123 H Urine Color YELLOW Urine Clarity CLEAR Urine pH 6.5 Ur Specific [place] 1.025 Urine Protein 30 H Urine Glucose (UA) NEGATIVE Urine Ketones TRACE Urine Occult Blood NEGATIVE Urine Nitrite NEGATIVE Urine Bilirubin NEGATIVE Urine Urobilinogen 0.2 (NORMAL) Ur Leukocyte Esterase NEGATIVE Urine RBC 0-5 Urine WBC 0-3 Ur Squamous Epith Cells RARE Squamous Urine Bacteria Rare Urine Mucus Few Strands Ur Microscopic Review INDICATED Urine Culture Comments NOT INDICATED Urine Opiates Screen Ur Oxycodone Screen Urine Methadone Screen Ur Propoxyphene Screen Ur Barbiturates Screen Ur Tricyclics Screen Ur Phencyclidine Scrn Ur Amphetamine Screen U Methamphetamines Scrn U Benzodiazepines Scrn Urine Cocaine Screen U Cannabinoids Screen 05/11/19 05/11/19 05/11/19 16:46 17:20 17:20 WBC RBC Hgb Hct MCV MCH MCHC RDW Plt Count MPV Neut # (Auto) Lymph # (Auto) Baker # (Auto) Eos # (Auto) Baso # (Auto) Absolute Nucleated RBC Nucleated RBC % Sodium Potassium Chloride Carbon Dioxide Anion Gap BUN Creatinine Estimated GFR (MDRD) Glucose Lactic Acid 1.9 Calcium Magnesium 2.1 Total Bilirubin AST ALT Alkaline Phosphatase Total Protein Albumin Globulin Albumin/Globulin Ratio Lipase Urine Color Urine Clarity Urine pH Ur Specific [place] Urine Protein Urine Glucose (UA) Urine Ketones Urine Occult Blood Urine Nitrite Urine Bilirubin Urine Urobilinogen Ur Leukocyte Esterase Urine RBC Urine WBC Ur Squamous Epith Cells Urine Bacteria Urine Mucus Ur Microscopic Review Urine Culture Comments Urine Opiates Screen NEGATIVE Ur Oxycodone Screen NEGATIVE Urine Methadone Screen NEGATIVE Ur Propoxyphene Screen NEGATIVE Ur Barbiturates Screen NEGATIVE Ur Tricyclics Screen NEGATIVE Ur Phencyclidine Scrn NEGATIVE Ur Amphetamine Screen NEGATIVE U Methamphetamines Scrn NEGATIVE U Benzodiazepines Scrn NEGATIVE Urine Cocaine Screen NEGATIVE U Cannabinoids Screen POSITIVE H PD MEDICAL DECISION MAKING - ED course Complexity details: considered differential (Pancreatitis, gastritis, biliary pathology, alcohol use, electrolyte abnormality) ED course: On arrival patient is vomiting and uncomfortable appearing. He has some tenderness in his left upper quadrant. IV access was secured, He was given Zofran in addition to the 4 mg of Zofran that he was given by EMS, followed by [facility]. When he had continued vomiting he was given fentanyl, and required hydromorphone subsequently due to pain. He was also given 2 L of crystalloid. On reexamination patient continues to be nauseated and uncomfortable, his labs are notable for elevated lipase, otherwise unremarkable. His presentation, left upper quadrant pain, and elevated lipase are concerning for pancreatitis, and he appears to require admission due to his intractable pain and vomiting. He did not have any LFT elevations or elevated bilirubin to suggest gallstone pancreatitis, and he does not have any right upper quadrant tenderness I discussed our work-up with the patient, who is in agreement with the plan. He is nontoxic-appearing, vital signs are stable, and I do not feel that he requires CT At this time as she is not responding appropriately to treatment or his exam worsens. I spoke with our hospitalist, who agreed to admit the patient for further evaluation and treatment. Departure - Departure Disposition: 66 [facility] DC/Xfer Clinical Impression: Pancreatitis Qualifiers: Chronicity: acute Pancreatitis type: unspecified pancreatitis type Acute pancreatitis complication: unspecified Qualified Code(s): K85.90 - Acute pancreatitis without necrosis or infection, unspecified Condition: Stable Discharge Date/Time: 05/11/19 17:44
[2019-05-11 12:55] LABS: ALBUMIN/GLOBULIN RATIO 1.6 (1.0-2.2); BILIRUBIN,TOTAL 0.5 mg/dL (0.2-1.0); CALCIUM 9.8 mg/dL (8.5-10.3); CREATININE 1.1 mg/dL (0.6-1.2); TOTAL PROTEIN 8.2 g/dL (6.7-8.2)
[2019-05-11] MEDS ORDERED: ONDANSETRON 4 MG/2 ML VIAL IVP STA (13:09)
[2019-05-11] MEDS ORDERED: fentaNYL 100 MCG/2 ML VIAL IVP STA (13:09)
[2019-05-11] MEDS ORDERED: SODIUM CHLORIDE 0.9% 1,000 ML IV ONE (13:10)
[2019-05-11] MEDS ORDERED: METOCLOPRAMIDE 10 MG/2 ML VIAL IVP STA (14:16)
[2019-05-11] MEDS ORDERED: METOCLOPRAMIDE 10 MG/2 ML VIAL ONE (14:29)
[2019-05-11] MEDS ORDERED: HYDROmorphone 2 MG/ML VIAL IVP STA (16:33)
[2019-05-11] MEDS ORDERED: LACTATED RINGERS 1,000 ML IV STA (16:37)
[2019-05-11] MEDS ORDERED: PROMETHAZINE 25 MG/1 ML VIAL IM PRN (17:00)
[2019-05-11] MEDS ORDERED: SODIUM CHLORIDE FLUSH 0.9% 10 ML SYRINGE IVP PRN (17:00)
[2019-05-11] MEDS ORDERED: PROCHLORPERAZINE 10 MG/2 ML VIAL IVP PRN (17:00)
[2019-05-11] MEDS ORDERED: ONDANSETRON 4 MG/2 ML VIAL IVP PRN (17:00)
[2019-05-11 17:03] LABS: BILIRUBIN,URINE NEGATIVE (NEGATIVE); GLUCOSE, URINE (UA) NEGATIVE (NEGATIVE); KETONES,URINE (UA) TRACE mg/dL (NEGATIVE); LEUKOCYTE ESTERASE, URINE NEGATIVE (NEGATIVE); NITRITE,URINE NEGATIVE (NEGATIVE); OCCULT BLOOD,URINE NEGATIVE (NEGATIVE); PH,URINE 6.5 PH (5.0-7.5); PROTEIN,URINE 30 mg/dL (NEGATIVE); UROBILINOGEN,URINE 0.2 (NORMAL) E.U./dL (NORMAL)
[2019-05-11] MEDS ORDERED: ACETAMINOPHEN 1,000 MG/100 ML 100 ML IV PRN (17:04)
[2019-05-11 17:07] LABS: CLARITY,URINE CLEAR (CLEAR)
[2019-05-11 17:39] LABS: RBC,URINE 0-5 /HPF (0-5)
[2019-05-11 17:40] LABS: BACTERIA,URINE Rare /HPF (None Seen); MUCUS,URINE Few Strands; SQUAMOUS EPITHELIAL CELL,UR RARE Squamous (<= Few)
[2019-05-11 18:30] LABS: MUDS CUTOFF CONCENTRATIONS CUTOFF CONC BELOW:
[2019-05-11] MEDS ORDERED: hydrALAZINE INJ 20 MG/ML VIAL IVP ONE (18:39)
[2019-05-11] MEDS: D5NS W/20 MEQ KCL 1,000 ML IV SCH (18:42)
[2019-05-11 18:44] LABS: AMPHETAMINE SCREEN,URINE NEGATIVE (NEGATIVE); BENZODIAZEPINES SCREEN, URINE NEGATIVE (NEGATIVE); COCAINE SCREEN URINE NEGATIVE (NEGATIVE); METHADONE SCREEN, URINE NEGATIVE (NEGATIVE); METHAMPHETAMINES SCREEN, URINE NEGATIVE (NEGATIVE); OPIATE SCREEN, URINE NEGATIVE (NEGATIVE); OXYCODONE SCREEN, URINE NEGATIVE (NEGATIVE); PROPOXYPHENE SCREEN, URINE NEGATIVE (NEGATIVE); TRICYCLIC ANTIDEPRESSANT,URINE NEGATIVE (NEGATIVE)
[2019-05-11] MEDS: HYDROmorphone 2 MG/ML VIAL IVP PRN ×2 (19:11→21:34)
[2019-05-11] MEDS ORDERED: CETIRIZINE 10 MG TABLET PO SCH (19:14)
[2019-05-11] MEDS: FAMOTIDINE 20 MG/2 ML VIAL IVP SCH (21:34)
--- NOTE | 2019-05-11 22:44 | HISTORY & PHYSICAL EXAMINATION ---
DATE OF SERVICE: 05/11/2019 Physician: Nena Solis MD HISTORY OF PRESENT ILLNESS: This is a 38-year-old black man with a history of hypertension, on amlodipine, depression on Venlafaxine and prior history of recurrent admissions for cyclical nausea and vomiting, abdominal pain, pancreatitis. In 2018, he was either admitted or in the ER approximately 20 times for these problems. He started to be seen by a specialist at [facility], as well as . There were times he was told he had gastroparesis and was on Reglan. He has not had problems here for approximately 10 months and then this morning awoke and started to have his typical right upper and left upper quadrant pain, along with severe nausea and vomiting and retching. He states he has not been able to keep any liquids down today, but then told his nurse he was not able to keep amlodipine down for three days. In the emergency room, he received several antiemetics with minimal relief, was started on lactated Ringer's and also got pain medications. He is still very uncomfortable, having dry heaves and is being admitted. Labs do show an elevation of his lipase. PAST MEDICAL HISTORY 1. Pancreatitis. 2. Prior binge drinking. 3. Depression. 4. Marijuana use. 5. Cyclical vomiting. 6. Chronic abdominal pain. ALLERGIES: MORPHINE. MEDICATIONS 1. Amlodipine 10 mg b.i.d. 2. Venlafaxine 37.5 mg b.i.d. SOCIAL HISTORY: Positive marijuana, history of alcohol binging and history of smoking. REVIEW OF SYSTEMS: There has been no fever. He denies any diarrhea. He has not had any sick contacts. A comprehensive review of systems was performed and the pertinent positives are listed, the rest are negative. PHYSICAL EXAMINATION GENERAL: Thin black male. He is in moderate to severe distress from his nausea. VITAL SIGNS: Blood pressure in the ER was 170/138 and is now 206/115, heart rate 45-50 in sinus rhythm, afebrile, room air saturation 97%. HEENT: Reveals dry oral mucosa. NECK: No JVD. CHEST: Clear. HEART: Normal heart sounds. ABDOMEN: Not distended. No guarding or rebound. Decreased bowel sounds. No tenderness. Negative Walter sign. No organomegaly. EXTREMITIES: No clubbing, cyanosis or edema. NEUROLOGIC: Grossly intact. LABORATORY DATA: Normal electrolytes. Normal BUN and creatinine. Lactic acid 1.9, magnesium 2.1. Normal liver tests. Lipase elevated at 123. Normal CBC. Urine had high protein, trace ketones. IMAGING: No imaging was done. IMPRESSION/DIAGNOSES 1. Acute pancreatitis (with abdominal pain. N/V and elevated Lipase) from binging alcohol, his last alcohol drink was approximately five days ago. 2. Cyclical nausea and vomiting. 3. Hypertension, uncontrolled. 4. History of depression. 5. Marijuana use, which may be adding to the latest exacerbation of his nausea and vomiting. PLAN: Admit the patient. Begin IV fluids. Begin antiemetics using Ativan, Phenergan and Compazine p.r.n., which can be staggered and alternated. Obtain abdomen imaging with CT, to confirm a pancreatic source of symptoms. Begin IV Hydralazine for management of his blood pressure. Use IV Tylenol for pain and start Pepcid IV for ulcer prophylaxis. Hold his Effexor and Amlodipine until he can tolerate oral intake. Follow his electrolytes, CBC, lipase. Obtain a MUDS screen to check for cannibis.. DEEP VENOUS THROMBOSIS PROPHYLAXIS: SCDs. CODE STATUS: FULL CODE. ATTESTATION: The patient is expected to be discharged or transferred to another facility within 96 hours: Yes. cc: Christiano Garcia DO TD: 05/11/2019 18:50 MTDD
[2019-05-12] MEDS ORDERED: diphenhydrAMINE 25 MG CAPSULE PO PRN (00:01)
[2019-05-12] MEDS: SODIUM CHLORIDE FLUSH 0.9% 10 ML SYRINGE IVP SCH ×3 (00:26→17:12)
[2019-05-12] MEDS: D5NS W/20 MEQ KCL 1,000 ML IV SCH ×2 (02:50→10:36)
[2019-05-12 05:33] LABS: CALCIUM 8.7 mg/dL (8.5-10.3); CREATININE 1.1 mg/dL (0.6-1.2)
[2019-05-12] MEDS: HYDROmorphone 2 MG/ML VIAL IVP PRN (09:10)
[2019-05-12] MEDS: FAMOTIDINE 20 MG/2 ML VIAL IVP SCH (09:11)
[2019-05-12] MEDS ORDERED: D5NS W/20 MEQ KCL 1,000 ML IV SCH (10:55)
[2019-05-12] MEDS ORDERED: amLODIPine 5 MG TABLET PO SCH (11:00)
[2019-05-12] MEDS ORDERED: VENLAFAXINE 37.5 MG TABLET PO SCH (11:00)
--- NOTE | 2019-05-12 13:08 | CT Report ---
Reason: abd pain/N/V, Hx of recurrent alcohol pancreatitis Procedure Date: 05/12/2019 Accession Number: [id number] / [id number] Procedure: CT - Abdomen/Pelvis WO CPT Code: FULL RESULT: EXAM: CT ABDOMEN AND PELVIS EXAM DATE: 05/12/2019 10:35 AM. CLINICAL HISTORY: Abd pain/N/V, Hx of recurrent alcohol pancreatitis. COMPARISONS: ABDOMEN W/WO 10/29/2017 8:31 AM. TECHNIQUE: Routine helical CT imaging was performed through the abdomen and pelvis. IV contrast: None. Enteric contrast: No. Reconstructions: Coronal and sagittal. In accordance with CT protocol optimization, one or more of the following dose reduction techniques were utilized for this exam: automated exposure control, adjustment of mA and/or KV based on patient size, or use of iterative reconstructive technique. FINDINGS: Lung Bases: Unremarkable. Liver: Normal. No masses. Gallbladder/Bile Ducts: Unremarkable. Spleen: Normal. Pancreas: Minimal residual peripancreatic fat stranding. No discrete fluid collections. No ductal dilation. Adrenal Glands: Normal. Kidneys: Normal. No masses or hydronephrosis. Peritoneal Cavity/Bowel: Unremarkable stomach. Normal caliber small bowel loops without signs of wall thickening or hyperemia. No enlarged intraperitoneal or retroperitoneal lymph nodes are seen. No intra-abdominal fluid collections. Appendix is normal best seen on coronal images. No pneumoperitoneum or ascites. Pelvic Organs: Unremarkable urinary bladder for degree of distention. Prostate and seminal vesicles are normal. No enlarged pelvic or inguinal lymph nodes. Vasculature: No aneurysms or other significant abnormality. Bones: No significant abnormality. Other: None. IMPRESSION: 1. Minimal residual peripancreatic fat stranding could reflect mild residual pancreatitis. No discrete fluid collections are ductal dilation. 2. No other acute abnormality seen in the abdomen or pelvis. Appendix is normal. Normal caliber bowel loops. RADIA
--- NOTE | 2019-05-12 16:21 | Discharge Plan ---
Discharge Plan Problem Reviewed?: Yes Disposition: Home, Self Care Condition: Stable Diet: Soft Activity Restrictions: Activity as Tolerated Shower Restrictions: No Driving Restrictions: No Health Concerns: You were admitted with a bout of pancreatitis and nausea and vomiting. Plan of Treatment: Avoid foods or drinks that set off your symptoms and avoid marijuana which can add to vomiting. Advance your diet as you can tolerate. Resume all your usual medications. See your PCP for any questions or new medications. Care Goals: Stabilization of symptoms. Assessment: The patient agrees. No Smoking: If you smoke, Please STOP! Call for help. Follow-up with: Kristin Hansen ARNP [Primary Care Provider] -
[2019-05-12] MEDS ORDERED: NICOTINE 14 MG PATCH TOP SCH (16:22)
[2019-05-12 17:47] VITALS: BP 135/80
--- NOTE | 2019-05-16 14:55 | DISCHARGE SUMMARY ---
Physician: Nena Solis MD DATE OF ADMISSION: 05/11/2019 DATE OF DISCHARGE: 05/12/2019 HISTORY OF PRESENT ILLNESS: This is a 38-year-old black man with a history of hypertension on amlodipine, depression on venlafaxine, and prior history of recurrent admissions for cyclical nausea and vomiting, recurrent abdominal pain and recurrent alcohol-induced pancreatitis. In 2018, he was either admitted here or in the emergency room approximately 20 times for vomiting and pancreatitis. He has been seen by a specialist at [facility], as well as . At one point, he was told he had gastroparesis and was on Reglan. This year, he has not had any visits for this complaint for over 10 months, and tells me that he improved by avoiding certain foods and liquids and being compliant. This morning, he awoke and started to have his typical right upper and left upper quadrant pain, along with severe nausea and vomiting and retching. He could keep no liquids down or medications. He did tell his nurse that this had actually started for three days, and he had no amlodipine intake for three days. In the emergency room, he received several antiemetics and had minimal relief, was started on IV fluids, also required pain medications. He was still very uncomfortable with dry heaves and was admitted for management of acute pancreatitis as noted by elevation of lipase, and for cyclical nausea and vomiting and dehydration. DISCHARGE DIAGNOSES 1. Acute pancreatitis. This is presumed to be again from binging alcohol and his last drink was approximately five days previously. He was kept n.p.o., IV hydration was continued, and he got antiemetics and pain medications. He did undergo CT imaging of the abdomen and pelvis, which showed residual peripancreatic fat stranding reflecting mild pancreatitis, no fluid collections or ductal dilatation, and no other abnormality. His lipase level of 123 decreased down to normal range of 34 by the following day. He did request to try liquids by the day after admission and was unexpectedly able to tolerate liquids, and then quickly advanced to a soft diet that same day and was discharged on 05/12/2019 to home in stable condition. 2. Cyclical nausea and vomiting. He required IV fluids and several types of antiemetics which were staggered and alternated, and he improved by the following day. 3. Hypertension, uncontrolled. At admission, his blood pressure was 170/138 and 206/115. He received IV Hydralazine for blood pressure control and then was restarted on his Amlodipine on the following day when he could take p.o. liquids without vomiting. 4. History of depression. His venlafaxine was restarted on his second day. 5. Marijuana use. He was advised that this could add to cyclical vomiting and told to stop. He described that he was using it minimally. ALLERGIES: MORPHINE. MEDICATIONS AT THE TIME OF DISCHARGE 1. Amlodipine 10 mg b.i.d. 2. Venlafaxine 37.5 mg b.i.d. LABORATORY AND IMAGING: Reviewed and summarized above. CONDITION AT DISCHARGE: Stable. PHYSICAL EXAMINATION VITAL SIGNS: Blood pressure 123/62, pulse 50 in sinus rhythm, afebrile, room air saturation 100%. HEENT: Unremarkable with moist oral mucosa. NECK: Without JVD. LUNGS: Clear. HEART: Normal heart sounds, no murmurs. ABDOMEN: Soft, nondistended. No organomegaly. Normal bowel sounds. Nontender. EXTREMITIES: No clubbing, cyanosis or edema. NEUROLOGIC: Grossly intact. CODE STATUS: FULL CODE. FOLLOWUP: The patient was advised to see his PCP in about a week for followup of this hospitalization. Time required to complete this entire discharge, chart review, dictation, discharge orders and discussion with patient: 30 minutes. cc: SURESH Alejandre TD: 05/16/2019 14:13 MTDD
== END 2019-05-12 17:50 | disposition home or self-care (01) | DRG 440 ==
LOC: EDUNIT# → ED 12:14 → MS2 17:42
PROVIDERS: ADMIT Internal Medicine; ATTEND Internal Medicine
DX: K85.90 Acute pancreatitis without necrosis or infection, unspecified (principal); I10 Essential (primary) hypertension; F32.9 Major depressive disorder, single episode, unspecified; E86.0 Dehydration; Z87.891 Personal history of nicotine dependence; Z72.89 Other problems related to lifestyle
CPT/HCPCS: 36415; 74176; 80048; 80053; 80306; 81001; 83605; 83690; 83735; 85025; 96361; 96374; 96375; 99284; 99285; A9270; J0131; J1170; J2765; J7120; 81003; 87086

== ENCOUNTER 2019-05-26 22:09 | Outpatient (CLI) | payer MEDICAID | END 2019-05-26 22:10 | disposition critical access hospital (66) | LOC: EMS 22:09 | PROVIDERS: ATTEND Surgery | DX: R45.1 Restlessness and agitation (principal); Z72.89 Other problems related to lifestyle | CPT/HCPCS: A0425; A0429; A0999 ==

== ENCOUNTER 2019-05-26 22:35 | Emergency (ER) | payer MEDICAID ==
[2019-05-26 22:43] VITALS: BP 134/89
--- NOTE | 2019-05-26 22:46 | ED Physician Documentation ---
History of Present Illness - Stated complaint Stated Complaint: ETOH/AGITATION - Chief complaint Chief Complaint: General - History obtained from History obtained from: Patient, EMS, Police - History of Present Illness Timing: Today - Additonal information Additional information: BIBA in four-point restraints. Patient's mother called 911 due to aggressive and agitated behavior exhibited by patient. Patient was reportedly unconscious when police first arrived but subsequently suddenly became agitated and violent with police, requiring several police officers to subdue patient. He was eventually able to be physically restrained, placed in 4-point restraints and BIBA. He is awake and alert on presentation; he readily admits to drinking vodka to excess tonight. Review of Systems Unable to obtain: Intoxicated PD PAST MEDICAL HISTORY - Past Medical History Cardiovascular: Hypertension Respiratory: None Neuro: None Endocrine/Autoimmune: None GI: Pancreatitis : None HEENT: None Psych: Depression, Anxiety, Other Musculoskeletal: None Derm: None - Past Surgical History Past Surgical History: Yes Ortho: Other - Present Medications Home Medications: Ambulatory Orders Medication Instructions Recorded Confirmed Amlodipine Besylate [Norvasc] 10 mg PO BID 05/11/19 05/11/19 Venlafaxine [Effexor] 37.5 mg PO BID 05/11/19 05/11/19 - Allergies Allergies/Adverse Reactions: Allergies Allergy/AdvReac Type Severity Reaction Status Date / Time morphine Allergy Hives Verified 05/11/19 12:21 - Social History Does the pt smoke?: Yes Smoking Status: Current every day smoker Does the pt drink ETOH?: No Does the pt have substance abuse?: No - Immunizations Immunizations are current?: Yes - POLST Patient has POLST: No POLST Status: Full Code PD ED PE NORMAL - Vitals Vital signs reviewed: Yes - General General: Alert and oriented X 3, No acute distress, Well developed/nourished, Other (slurred speech, labile affect (loud and angry at times, but then tearful and expressing remorse and regret)) - HEENT HEENT: Atraumatic, PERRL, EOMI - Neck Neck: No bony TTP - Cardiac Cardiac: RRR, No murmur - Respiratory Respiratory: No respiratory distress, Clear bilaterally - Abdomen Abdomen: Soft, Non tender - Back Back: No spinal TTP - Derm Derm: Normal color, Warm and dry - Extremities Extremities: No deformity, No tenderness to palpate, Normal ROM s pain PD ED PE EXPANDED - Psych Psych: Intoxicated / AOB Results - Vitals Vitals: Oxygen O2 Source Room air PD MEDICAL DECISION MAKING - ED course Complexity details: reviewed old records, re-evaluated patient, considered differential, d/w patient ED course: Patient admits to drinking vodka to excess tonight. He reported bilateral shoulder and upper back pain but was not in any apparent painful discomfort during ED stay, was nontender with palpation of these areas on exam, and exhibited normal ROM without apparent difficulty or painful distress. Shortly after his arrival, the restraints were untethered and subsequently removed, as he was cooperative with ED staff. Presentation is c/w the alcohol ingestion that he admits to; emergent testing not indicated at this time nor necessary for medical clearance for incarceration. Departure - Departure Disposition: 01 Home, Self Care Clinical Impression: Alcohol intoxication Qualifiers: Complication of substance-induced condition: uncomplicated Qualified Code(s): F10.920 - Alcohol use, unspecified with intoxication, uncomplicated Condition: Good Instructions: ED Alcohol Intoxication Discharge Date/Time: 05/26/19 23:54
== END 2019-05-26 23:54 | disposition home or self-care (01) ==
LOC: EDUNIT# → ED 22:35
DX: F10.920 Alcohol use, unspecified with intoxication, uncomplicated (principal); R45.1 Restlessness and agitation; Z78.1 Physical restraint status; I10 Essential (primary) hypertension; F17.200 Nicotine dependence, unspecified, uncomplicated
CPT/HCPCS: 99281; 99283

== ENCOUNTER 2019-10-05 08:41 | Outpatient (CLI) | payer MEDICAID | END 2019-10-05 08:42 | disposition critical access hospital (66) | LOC: EMS 08:41 | PROVIDERS: ATTEND Surgery | DX: R11.2 Nausea with vomiting, unspecified (principal); M79.10 Myalgia, unspecified site; R10.9 Unspecified abdominal pain | CPT/HCPCS: A0425; A0427; A0999 ==

== ENCOUNTER 2019-10-05 09:11 | Observation (INO) | payer MEDICAID ==
[2019-10-05] MEDS ORDERED: HALOPERIDOL 5 MG/ML VIAL IM STA (09:15)
[2019-10-05] MEDS ORDERED: SODIUM CHLORIDE 0.9% 1,000 ML IV ONE ×4 (09:15→19:36)
[2019-10-05] MEDS ORDERED: diphenhydrAMINE INJ 50 MG/ML VIAL IVP STA (09:16)
[2019-10-05] MEDS ORDERED: PANTOPRAZOLE 40 MG VIAL IVP STA (09:28)
--- NOTE | 2019-10-05 09:32 | ED Physician Documentation ---
History of Present Illness - Stated complaint Stated Complaint: N/V MUSCLE CRAMPS - Chief complaint Chief Complaint: Abd Pain - History obtained from History obtained from: Patient - History of Present Illness Timing: How many weeks ago (1) Pain level max: 5 Pain level now: 5 - Additonal information Additional information: 38-year-old male presents to the emergency department stating that he has had vomiting for the past week. This is a chronic recurrent condition for him. He states he feels dehydrated. Nothing makes it better or worse. He had been on a proton pump inhibitor, but has been off it for the past year. He does use marijuana daily. This is similar to his prior episodes. No fevers. No cough. States that his muscles are now cramping. Review of Systems Constitutional: denies: Fever, Chills Throat: denies: Sore throat Cardiac: denies: Chest pain / pressure Respiratory: denies: Cough GI: reports: Abdominal Pain, Nausea, Vomiting. denies: Diarrhea : denies: Dysuria Skin: denies: Rash Musculoskeletal: denies: Neck pain, Back pain Neurologic: denies: Headache PD PAST MEDICAL HISTORY - Past Medical History Past Medical History: Yes Cardiovascular: Hypertension Respiratory: None Neuro: None Endocrine/Autoimmune: None GI: Pancreatitis : None HEENT: None Psych: Depression, Anxiety, Other Musculoskeletal: None Derm: None - Past Surgical History Past Surgical History: Yes Ortho: Other - Present Medications Home Medications: Ambulatory Orders Medication Instructions Recorded Confirmed Amlodipine Besylate [Norvasc] 10 mg PO BID 05/11/19 05/11/19 Venlafaxine [Effexor] 37.5 mg PO BID 05/11/19 05/11/19 - Allergies Allergies/Adverse Reactions: Allergies Allergy/AdvReac Type Severity Reaction Status Date / Time morphine Allergy Hives Verified 10/05/19 09:25 - Social History Does the pt smoke?: Yes Smoking Status: Current every day smoker Does the pt drink ETOH?: No Does the pt have substance abuse?: No - Immunizations Immunizations are current?: Yes - POLST Patient has POLST: No POLST Status: Full Code PD ED PE NORMAL - Vitals Vital signs reviewed: Yes - General General: Alert and oriented X 3, No acute distress, Well developed/nourished - HEENT HEENT: Moist mucous membranes - Neck Neck: Supple, no meningeal sign - Cardiac Cardiac: RRR, Strong equal pulses - Respiratory Respiratory: No respiratory distress, Clear bilaterally - Abdomen Abdomen: Soft, Non distended, Other (Mild diffuse tenderness to palpation without peritoneal signs) - Derm Derm: Warm and dry, No rash - Extremities Extremities: No calf tenderness / cord - Neuro Neuro: Alert and oriented X 3 - Psych Psych: Normal mood, Normal affect Results - Vitals Vitals: Vital Signs - 24 hr 10/05/19 10/05/19 09:11 10:35 Temperature 35.9 C L Heart Rate 99 82 Respiratory 18 16 Rate Blood Pressure 134/102 H 135/98 H O2 Saturation 96 98 Oxygen O2 Source Room air - Labs Labs: Laboratory Tests 10/05/19 10/05/19 10/05/19 09:30 09:30 09:30 WBC 10.3 RBC 7.07 H Hgb 19.6 H Hct 57.8 H MCV 81.8 MCH 27.7 MCHC 33.9 RDW 15.8 H Plt Count 404 MPV 9.1 Neut # (Auto) 8.7 H Lymph # (Auto) 0.7 L [place] # (Auto) 0.8 Eos # (Auto) 0.0 Baso # (Auto) 0.1 Absolute Nucleated RBC 0.00 Nucleated RBC % 0.0 Manual Slide Review Indicated RBC Morph Micro Appear 2+ ANISOCYTOSIS Sodium 139 Potassium 3.8 Chloride 98 L Carbon Dioxide 22 Anion Gap 19.0 H BUN 23 H Creatinine 3.7 H Estimated GFR (MDRD) 22 L Glucose 146 H Calcium 11.5 H Phosphorus 4.2 Magnesium 2.7 Total Bilirubin 0.8 AST 36 ALT 34 Alkaline Phosphatase 70 Total Creatine Kinase 541 H Total Protein 10.6 H Albumin 6.3 H Globulin 4.3 H Albumin/Globulin Ratio 1.5 Lipase 42 Ethyl Alcohol 10/05/19 09:30 WBC RBC Hgb Hct MCV MCH MCHC RDW Plt Count MPV Neut # (Auto) Lymph # (Auto) Free[place] # (Auto) Eos # (Auto) Baso # (Auto) Absolute Nucleated RBC Nucleated RBC % Manual Slide Review RBC Morph Micro Appear Sodium Potassium Chloride Carbon Dioxide Anion Gap BUN Creatinine Estimated GFR (MDRD) Glucose Calcium Phosphorus Magnesium Total Bilirubin AST ALT Alkaline Phosphatase Total Creatine Kinase Total Protein Albumin Globulin Albumin/Globulin Ratio Lipase 43 Ethyl Alcohol < 5.0 PD MEDICAL DECISION MAKING - ED course Complexity details: reviewed results, re-evaluated patient, considered differential, d/w patient ED course: 38-year-old male with chronic abdominal pain and vomiting. Patient found to be significantly dehydrated and hemoconcentrated. Has significant acute renal failure. Baseline creatinine is around 1.0. He is at 3.7 today. Continues to. Given Haldol, Zofran, Benadryl, IV fluids, Dilaudid. We will place in observation for continued rehydration. Discussed the case with Dr. De Luna, hospitalist who accepts This document was made in part using voice recognition software. While efforts are made to proofread this document, sound alike and grammatical errors may occur. Departure - Departure Disposition: ED Place in Observation Clinical Impression: Dehydration Vomiting Qualifiers: Vomiting type: unspecified Vomiting Intractability: intractable Nausea presence: with nausea Qualified Code(s): R11.2 - Nausea with vomiting, unspecified Acute renal failure Qualifiers: Acute renal failure type: unspecified Qualified Code(s): N17.9 - Acute kidney failure, unspecified Condition: Stable
[2019-10-05 09:47] LABS: BASOPHILS # (AUTO) 0.1 10^3/uL (0.0-0.1); BASOPHILS % (AUTO) 0.6 %; EOSINOPHILS % (AUTO) 0.2 %; HGB - HEMOGLOBIN 19.6 g/dL (14.0-18.0); LYMPHOCYTES # (AUTO) 0.7 10^3/uL (1.5-3.5); LYMPHOCYTES % (AUTO) 6.3 %; MEAN CORPUSCULAR HEMOGLOBIN 27.7 pg (27.0-31.0); MEAN CORPUSCULAR HGB CONC 33.9 g/dL (32.0-36.0); MEAN CORPUSCULAR VOLUME 81.8 fL (80.0-94.0); MEAN PLATELET VOLUME 9.1 fL (7.4-11.4); MONOCYTES # (AUTO) 0.8 10^3/uL (0.0-1.0); MONOCYTES % (AUTO) 7.9 %; NEUTROPHILS # (AUTO) 8.7 10^3/uL (1.5-6.6); NEUTROPHILS % (AUTO) 84.7 %; PLT - PLATELET COUNT 404 10^3/uL (130-450); RED BLOOD COUNT 7.07 10^6/uL (4.70-6.10); RED CELL DISTRIBUTION WIDTH 15.8 % (12.0-15.0); WHITE BLOOD COUNT 10.3 x10^3/uL (4.8-10.8)
[2019-10-05 09:59] LABS: ALBUMIN 6.3 g/dL (3.2-5.5); ALBUMIN/GLOBULIN RATIO 1.5 (1.0-2.2); BILIRUBIN,TOTAL 0.8 mg/dL (0.2-1.0); CALCIUM 11.5 mg/dL (8.5-10.3); CREATININE 3.7 mg/dL (0.6-1.2); MAGNESIUM 2.7 mg/dL (1.7-2.8); PHOSPHORUS 4.2 mg/dL (2.5-4.6); TOTAL PROTEIN 10.6 g/dL (6.7-8.2)
[2019-10-05] MEDS ORDERED: ONDANSETRON 4 MG/2 ML VIAL IVP STA (10:04)
[2019-10-05] MEDS ORDERED: HYDROmorphone 1 MG/ML SYRINGE IVP STA (10:07)
[2019-10-05] MEDS ORDERED: PROMETHAZINE INJ 25 MG in SODIUM CHLORIDE 0.9% 50 ML IV STA (10:09)
[2019-10-05 10:11] LABS: RBC MORPHOLOGY (MULTIPLE) 2+ ANISOCYTOSIS (NORMAL)
[2019-10-05] MEDS ORDERED: ACETAMINOPHEN 325 MG TABLET PO PRN (10:28)
[2019-10-05] MEDS ORDERED: SODIUM CHLORIDE FLUSH 0.9% 10 ML SYRINGE IVP PRN (10:28)
[2019-10-05] MEDS ORDERED: ZOLPIDEM 5 MG TABLET PO PRN (10:28)
[2019-10-05] MEDS ORDERED: ONDANSETRON 4 MG/2 ML VIAL IVP PRN (10:28)
[2019-10-05] MEDS ORDERED: PROCHLORPERAZINE 10 MG/2 ML VIAL IVP PRN (10:28)
[2019-10-05 10:46] LABS: LIPASE 43 U/L (22-51)
--- NOTE | 2019-10-05 10:59 | HISTORY & PHYSICAL EXAMINATION ---
Chief Complaint - Chief Complaint Chief Complaint: vomiting History of Present Illness - Admitted From Admitted From:: ER - History of Present Illness HPI Comment/Other: Patient is a 36-year-old -Mexican gentleman with a PMH significant for chronic pancreatitis, HTN, current cigarette smoker, and alcohol abuse, current marijuana usage who complain of nausea, vomiting and abdominal pain. Pt has been multiple hospital visit in the past for his chronic pancreatitis and abdomen pain, and multiple CT of abdomen and MRCP test, and EGD and colonoscopy that appears grossly normal. Today pt report he had nausea and vomiting for two weeks. He denies cough, fever, chill, shortness of breath, chest pain. He report he has mild "but not much abdominal pain at this time." He report he still use Marijuana and tried to reduce the amount, still cigarette smoking but reduced to use alcohol. In Route lab test in ER pt is found to have 3.7 creatinine, usually his creatinine is around 1.1, hemoconcentrated. Clinically It appears pt is very dehydrated. Pt was treated by Dr. Claudio in ER, now pt appears comfortably. pt is afebrile, appears hemodynamically now. pt is admitted for acute kidney injury. History - Past Medical History Cardiovascular: reports: Hypertension Respiratory: reports: None Neuro: reports: None Endocrine/Autoimmune: reports: None GI: reports: Pancreatitis : reports: None HEENT: reports: None Psych: reports: Depression, Anxiety, Other Musculoskeletal: reports: None Derm: reports: None MRSA Hx?: No - Past Surgical History Ortho: reports: Other - Family & Social History Family History: Mother: Alive and Well, Hypertension, Father: Alive and Well, Hypertension, Renal Disease/Failure, Other family: Mental Illness Family History Comment/Other: Patient's mother has obesity, hypertension, arthritis and history of aortic dissection with aneurysm at the age of 50. One brother had a bicuspid aortic valve and had an aneurysm in his 20s. Social History Notes: He is unmarried. He does have 6 children with several mothers. His youngest child is 1 year old and his oldest is 19. 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 He now works in [employer]. He was drinking up to a pack and a half of beer a day when he stopped drinking in 2016. He does use cannabis daily he states that he smokes about a gram a day. The patient does smoke cigarettes about half a pack a day and has been doing so since his teen years. He denies any use of cocaine, heroin, LSD, methamphetamines. He denies any IV drug abuse. He is currently living with his mother and father and 1 of his brothers. While he is independent with activities of daily living with regard to dressing himself and feeding himself he is usually too tired to do much else. He still cooks for the family in general. In any given time many of his siblings, nieces and nephews are around the house and he participates in cooking and cleaning in the kitchen. - Substance History Use: Uses substance without health or social issues: Tobacco, Cannabis - POLST Patient has POLST: No POLST Status: Full Code Meds/Allgy - Home Medications Home Medications: Ambulatory Orders Medication Instructions Recorded Confirmed Amlodipine Besylate [Norvasc] 10 mg PO BID 05/11/19 05/11/19 Venlafaxine [Effexor] 37.5 mg PO BID 05/11/19 05/11/19 - Allergies Allergies/Adverse Reactions: Allergies Allergy/AdvReac Type Severity Reaction Status Date / Time morphine Allergy Hives Verified 10/05/19 09:25 Review of Systems - Constitutional Constitutional: denies: Fatigue, Fever, Chills, Malaise, Weakness, Poor jose francisco etite, Diaphoresis, Night sweats - Eyes Eyes: denies: Pain, Irritation, Amaurosis, Blurred vision, Spots in vision, Field loss, Vision loss, Dipolpia - Ears, Nose & Throat Ears, Nose & Throat: denies: Ear pain, Hearing loss, Hearing aids, Tinnitus, Vertigo, Nasal pain, Nasal discharge, Nosebleeds, Nasal obstruction, Nasal congestion, Postnasal drainage, Dentures, Sore throat, Hoarseness, Mouth lesions - Cardiovascular Cariovascular: denies: Irregular heart rate, Palpitations, Chest pain, Edema, Lightheadedness, Syncope, Exertional dyspnea, Decr. exercise tolerance - Respiratory Respiratory: denies: Cough, Sputum production, Wheezing, Snoring, Hemoptysis, Orthopnea, SOB at rest, SOB with exertion - Gastrointestinal Gastrointestinal: reports: Abdominal pain, Nausea, Vomiting. denies: Abdominal distention, Constipation, Diarrhea, Change in bowel habits, Rectal bleeding, Black stools, Bloody stools, Bile emesis, Jan blood emesis, Coffee grounds emesis, Reflux/heartburn, Bloating - Genitourinary Genitourinary: denies: Dysuria, Frequency, Urgency, Hematuria, Incontinence, Flank pain - Musculoskeletal Musculoskeletal: denies: Muscle pain, Back pain, Muscle aches, Stiffness, Limited range of motion, Muscle weakness, Gout, Joint pain - Integumentary Integumentary: denies: Rash, Pruritis, Lesions, Dryness, Lumps, Pigment changes - Neurological Neurological: denies: General weakness, Focal weakness, Headache, Dizziness, Numbness, Memory problems, Pre-existing deficit, Abnormal gait, Seizures, Incoordination, Slurred speech - Psychiatric Psychiatric: denies: Depression, Anxiety, Suicidal, Delusions, Hallucinations, Homicidal - Endocrine Endocrine: denies: Polyuria, Polydypsia, Polyphagia, Intolerance to cold - Hematologic/Lymphatic Hematologic/Lymphatic: denies: Anemia, Bruising, Petechiae, Blood clots, Lympha denopathy, Bleeding tendencies Exam - Vital Signs Reviewed Vital Signs: Yes Vital Signs: Vital Signs x48h Temp Pulse Resp BP Pulse Ox 10/05/19 10:35 82 16 135/98 H 98 10/05/19 09:11 35.9 C L 99 18 134/102 H 96 - Physical Exam General Appearance: positive: No acute distress, Alert. negative: Lethargic Eyes Bilateral: positive: Normal inspection, PERRL, No lid inflammation ENT: positive: ENT inspection nml, Pharynx nml, No signs of dehydration. negative: Purulent nasal drainage Neck: positive: Nml inspection, Thyroid nml, No JVD, Trachea midline. negative: Thyromegaly, Lymphadenopathy (R), Lymphadenopathy (L), Stiff neck, Tracheal dev iation Respiratory: positive: Chest non-tender, No respiratory distress, Breath sounds nml. negative: Wheezes Cardiovascular: positive: Regular rate & rhythm, No murmur, No gallop. negative: Irregularly irregular, Extrasystoles, Tachycardia, Bradycardia, JVD present, Systolic murmur, Diastolic murmur Peripheral Pulses: positive: 2+ Abdomen: positive: Non-tender, No organomegaly, Nml bowel sounds, No distention. negative: Tenderness, Guarding, Rebound Back: positive: Nml inspection. negative: CVA tenderness (R), CVA tenderness (L) Skin: positive: Color nml, No rash, Warm, Dry. negative: Cyanosis, Diaphoresis, Pallor Extremities: positive: Non-tender, Full ROM, Nml appearance. negative: Calf tenderness, Rachell's sign/cords Neurologic/Psychiatric: positive: Oriented x3, Motor nml, Sensation nml, Mood/affect nml. negative: Weakness, Sensory loss, Facial droop, Slurred/abnml speech, Depressed mood/affect Sepsis Event Note (H) - Evaluation Current Stage of Sepsis: Ruled out Conclusion/Plan - Problem List (1) Acute renal failure Conclusion/Plan: pt's creatinine is 3.7 today, he usually has 1.1. pt report he has two weeks of N/V, it appear severe dehydration. US of abdomen to check renal IVF of NS, ER already gave pt 1 liter of NS lab monitor kidney function Qualifiers: Acute renal failure type: unspecified Qualified Code(s): N17.9 - Acute kidney failure, unspecified (2) Nausea & vomiting Conclusion/Plan: pt report he had N/V for two weeks. pt recently had multiple hospital admission and multiple image studies, and EGD/colonoscopy study which appears grossly normal. It appears pt has acute virus gastritis. clear diet, advance diet as pt tolerate IVF of NS anti-emetics PRN (3) HTN (hypertension) Conclusion/Plan: pt has slight BP, will resume home BP meds Norvasc, continue BP monitor (4) Cigarette smoker Conclusion/Plan: pt want Nicotine Pitch. advise pt quit cigarette smoking. - Lab Results Fish Bones: 10/05/19 09:30 10/05/19 09:30 Core Measures - Anticipated LOS I expect patient to be DC'd or transferred within 96 hours.: Yes - DVT/VTE - Prophylaxis VTE/DVT Device ordered at admit?: Yes VTE/DVT Prophylaxis med ordered at admit?: Yes
[2019-10-05] MEDS: SODIUM CHLORIDE 0.9% 1,000 ML IV SCH ×2 (12:18→16:10)
[2019-10-05] MEDS: amLODIPine 5 MG TABLET PO SCH (13:15)
[2019-10-05] MEDS: NICOTINE 14 MG PATCH TOP SCH (14:27)
[2019-10-05] MEDS: SODIUM CHLORIDE FLUSH 0.9% 10 ML SYRINGE IVP SCH (16:10)
--- NOTE | 2019-10-05 16:24 | PHARMACY PROGRESS NOTE ---
- Best Possible Medication History Admit Date and Time: 10/05/19 1028 Processed by: Pharmacy Medication History completed: Yes Patient Interview: Completed (Per patient: patient is on no prescription mediations at home and has stopped taking prescription medication since last year (~ November 2018), didn't refill and says needs to make an appointment to see his PCP again. Following medication report was obtained from patient's PCP ([facility]): Amlodipine 10 mg daily, venlafaxine HCL 37.5 mg tab po bid, Propranolol HCL 10 mg (Take one-half tab by mouth every morning); per pt he recalls these were the medications he stopped taking ~November 2018) Secondary Source(s): Written medication list, Physician records As the person ultimately responsible for medication therapy, providers are able to order a medication from an existing home medication list in [facility] via the "Reconcile Routine" prior to Confirmation of that medication by phlebotomy support tech. Such practice is discouraged except when the physician, in their clinical avelina gment, deems that a medical need exists for a medication without regard to previous use.
[2019-10-05] MEDS ORDERED: SODIUM CHLORIDE 0.9% 1,000 ML IV SCH (18:30)
[2019-10-05 18:31] LABS: MUDS CUTOFF CONCENTRATIONS CUTOFF CONC BELOW:
[2019-10-05 18:36] LABS: GLUCOSE, URINE (UA) NEGATIVE (NEGATIVE); KETONES,URINE (UA) NEGATIVE (NEGATIVE); LEUKOCYTE ESTERASE, URINE NEGATIVE (NEGATIVE); NITRITE,URINE NEGATIVE (NEGATIVE); OCCULT BLOOD,URINE TRACE-INTA (NEGATIVE); PH,URINE 5.5 PH (5.0-7.5); PROTEIN,URINE 100 mg/dL (NEGATIVE); UROBILINOGEN,URINE 0.2 (NORMAL) E.U./dL (NORMAL)
[2019-10-05 18:39] LABS: BILIRUBIN,URINE NEGATIVE (NEGATIVE); CLARITY,URINE CLEAR (CLEAR); ICTOTEST,URINE NEGATIVE
[2019-10-05 18:46] LABS: AMPHETAMINE SCREEN,URINE POSITIVE (NEGATIVE); BENZODIAZEPINES SCREEN, URINE POSITIVE (NEGATIVE); COCAINE SCREEN URINE NEGATIVE (NEGATIVE); METHADONE SCREEN, URINE NEGATIVE (NEGATIVE); METHAMPHETAMINES SCREEN, URINE POSITIVE (NEGATIVE); OPIATE SCREEN, URINE POSITIVE (NEGATIVE); OXYCODONE SCREEN, URINE NEGATIVE (NEGATIVE); PROPOXYPHENE SCREEN, URINE NEGATIVE (NEGATIVE); TRICYCLIC ANTIDEPRESSANT,URINE NEGATIVE (NEGATIVE)
[2019-10-05 18:52] LABS: BACTERIA,URINE None Seen /HPF (None Seen); RBC,URINE 0-5 /HPF (0-5); SQUAMOUS EPITHELIAL CELL,UR RARE Squamous (<= Few)
--- NOTE | 2019-10-05 21:47 | Ultrasound Report ---
Reason: LAZARO Procedure Date: 10/05/2019 Accession Number: [id number] / [id number] Procedure: US - Retroperitoneal CPT Code: Final Report FULL RESULT: EXAM: RENAL ULTRASOUND EXAM DATE: 10/05/2019 07:30 PM. CLINICAL HISTORY: LAZARO. COMPARISON: None. TECHNIQUE: Real-time scanning was performed with static images obtained. FINDINGS: Right Kidney: 10.5 cm. Normal echotexture with no stones, contour-deforming masses, or hydronephrosis. Left Kidney: 11.5 cm. Normal echotexture with no stones, contour-deforming masses, or hydronephrosis. Bladder: Ureteral jets are not visualized. The latter is minimally distended measuring 14 mL. Other: None. IMPRESSION: No hydronephrosis. No significant sonographic abnormality of the kidneys demonstrated. RADIA
[2019-10-06] MEDS: SODIUM CHLORIDE 0.9% 1,000 ML IV SCH ×3 (00:24→13:57)
[2019-10-06] MEDS: SODIUM CHLORIDE FLUSH 0.9% 10 ML SYRINGE IVP SCH ×3 (00:26→16:40)
[2019-10-06] MEDS: HYDROmorphone 0.5 MG/0.5 ML SYRINGE IVP PRN ×2 (00:31→08:13)
[2019-10-06 05:35] LABS: BASOPHILS # (AUTO) 0.1 10^3/uL (0.0-0.1); BASOPHILS % (AUTO) 0.5 %; EOSINOPHILS # (AUTO) 0.1 10^3/uL (0.0-0.7); EOSINOPHILS % (AUTO) 1.2 %; HGB - HEMOGLOBIN 13.5 g/dL (14.0-18.0); LYMPHOCYTES # (AUTO) 3.5 10^3/uL (1.5-3.5); MEAN CORPUSCULAR HEMOGLOBIN 27.2 pg (27.0-31.0); MEAN CORPUSCULAR HGB CONC 31.8 g/dL (32.0-36.0); MEAN CORPUSCULAR VOLUME 85.3 fL (80.0-94.0); MEAN PLATELET VOLUME 9.2 fL (7.4-11.4); MONOCYTES # (AUTO) 0.9 10^3/uL (0.0-1.0); MONOCYTES % (AUTO) 8.3 %; NEUTROPHILS # (AUTO) 6.6 10^3/uL (1.5-6.6); NEUTROPHILS % (AUTO) 58.7 %; PLT - PLATELET COUNT 258 10^3/uL (130-450); RED BLOOD COUNT 4.97 10^6/uL (4.70-6.10); RED CELL DISTRIBUTION WIDTH 14.1 % (12.0-15.0); WHITE BLOOD COUNT 11.2 x10^3/uL (4.8-10.8)
[2019-10-06 05:58] LABS: CALCIUM 8.4 mg/dL (8.5-10.3); CREATININE 1.5 mg/dL (0.6-1.2)
[2019-10-06] MEDS ORDERED: LACTATED RINGERS 1,000 ML IV ONE (06:06)
[2019-10-06] MEDS ORDERED: PANTOPRAZOLE 40 MG VIAL IVP SCH (07:00)
[2019-10-06] MEDS: NICOTINE 14 MG PATCH TOP SCH (08:14)
[2019-10-06] MEDS ORDERED: polyethylene glycoL 3350 17 GM PACKET PO SCH (09:00)
[2019-10-06] MEDS: amLODIPine 5 MG TABLET PO SCH (11:48)
--- NOTE | 2019-10-06 14:02 | Discharge Plan ---
Discharge Plan Problem Reviewed?: Yes Disposition: Home, Self Care Condition: Good Prescriptions: Nicotine 14 mg Patch [Nicoderm] 1 patch TOP DAILY #7 patch Ondansetron HCl [Zofran] 8 mg PO Q4H PRN #30 tablet PRN Reason: Nausea / Vomiting oxyCODONE [Roxicodone] 5 mg PO Q4-6H #20 tablet Diet: Regular Activity Restrictions: Activity as Tolerated Shower Restrictions: No Driving Restrictions: No Instruction Topics: Rhabdomyolysis Health Concerns: Acute kidney injury Rhabdomyolysis Dehydration Tobacco dependence Drug use Plan of Treatment: Continue to drink plenty of fluids at home Rest when you are tired Make sure you are urinating well Get follow up blood work within 2-5 days Care Goals: Prevent ED visits or hospital stays Control symptoms Prevent a recurrence of this condition Assessment: You were admitted to the hospital for concerns of kidney failure likely caused by severe dehydration. Your kidney labs improved greatly, but then you began to show evidence of muscle damage which leaked into your blood stream. A re-check of labs shows that this lab is going in the right direction. You will need to drink plenty of fluids for the next few days and rest. You should make all attempts to avoid drug use as this may have triggered your symptoms leading to this hospital stay. Please do not work until Tuesday to ensure that you recover from this. No Smoking: If you smoke, Please STOP! Call for help. Follow-up with: Kristin Hansen ARNP [Primary Care Provider] -
[2019-10-06 16:22] LABS: CALCIUM 7.9 mg/dL (8.5-10.3); CREATININE 1.1 mg/dL (0.6-1.2)
--- NOTE | 2019-10-06 17:07 | DISCHARGE SUMMARY ---
Discharge Summary Admit Date: 10/05/19 Discharge Date: 10/06/19 Discharging Provider: SURESH Hairston Primary Care Provider: Kristin Hansen Code Status: Attempt Resuscitation Condition at Discharge: Good Discharge Disposition: 01 Home, Self Care - DIAGNOSES Discharge Diagnoses with Status of Each Condition: LAZARO (acute kidney injury)-Present on admission, resolved, back to baseline serum creatinine Rhabdomyolysis-Developed upon this discharge, expected to improve with PO fluids, stable Abdominal pain-ongoing, but improved likely due to myopathy from rhabdomyolysis, stable Nausea & vomiting-Present on admission, improved, tolerating light meals, stable Loss of appetite-Improved HTN (hypertension)-Chronic, no meds prescribed, needs to be followed outpatient Methamphetamine dependence-Present after a urine drug screen, patient admits to use stating he uses this due to his narcolepsy, ongoing Tobacco dependence-Chronic, encouraged to stop, ongoing History of alcoholism-Chronic, patient notes that he cut back, stable Marijuana dependence-Chronic, encouraged to stop, ongoing Narcolepsy-Chronic, will need follow up, stable - HPI History of Present Illness: Javi Mcbride is a 36-year-old -[place] gentleman with a past medical history of chronic pancreatitis, hypertension tobacco dependence, alcohol abuse, current marijuana dependence. He was brought in via EMS today for complaints of severe abdominal pain, nausea, & vomiting which first started about one week ago, but has progressed to the point he cannot tolerate food or liquids. He has had recurrent hospital admissions for his known chronic pancreatitis. He has undergone several work ups including; MRCP imaging, EGD and colonoscopies, all appear normal. On initial exam, the patient denied cough, fevers, chills, shortness of breath, sick contacts, travel, or chest pain. Labs showed an elevated creatinine of 3.7, with a usual baseline creatinine of 1.1. Clinically, the patient appeared dehydrated. The patient was admitted for acute kidney injury. - HOSPITAL COURSE Hospital Course: The patient was admitted to the hospital for concerns of kidney failure likely caused by severe dehydration, and this progressed to rhabdomyolysis. The LAZARO completely resolved after IV fluids. The patient was anxious to return home, so labs were re-checked showing a reduction in the prior CK level, so he was encouraged to continue to drink lots of fluids to ensure a complete recovery. He was encouraged to stop his drug use. A work note was provided, and he was remind ed to reach out to his PCP office for follow up labs. - ALLERGIES Allergies/Adverse Reactions: Allergies Allergy/AdvReac Type Severity Reaction Status Date / Time morphine Allergy Hives Verified 10/05/19 09:25 - MEDICATIONS Home Medications: Ambulatory Orders Medication Instructions Recorded Confirmed Acetaminophen [Tylenol Extra 500 mg PO DAILY PRN 10/05/19 10/05/19 Strength] Calcium Carbonate [Tums (Calcium 500 mg PO DAILY PRN 10/05/19 10/05/19 Carbonate 500mg)] raNITIdine HCl [Zantac] 150 mg PO DAILY PRN 10/05/19 10/05/19 Nicotine 14 mg Patch [Nicoderm] 1 patch TOP DAILY #7 patch 10/06/19 Ondansetron HCl [Zofran] 8 mg PO Q4H PRN #30 tablet 10/06/19 oxyCODONE [Roxicodone] 5 mg PO Q4-6H #20 tablet 10/06/19 - PHYSICAL EXAM AT DISCHARGE General Appearance: positive: No acute distress, Alert Eyes Bilateral: positive: Normal inspection, PERRL ENT: positive: ENT inspection nml, Pharynx nml, No signs of dehydration Neck: positive: Thyroid nml, No JVD, Trachea midline Respiratory: positive: Chest non-tender, No respiratory distress, Breath sounds nml Cardiovascular: positive: Regular rate & rhythm, No gallop, Systolic murmur Peripheral Pulses: positive: 2+ Abdomen: positive: Non-tender, Nml bowel sounds Back: positive: Nml inspection Skin: positive: Color nml, No rash, Warm Extremities: positive: Non-tender, Full ROM, Nml appearance, No pedal edema Neurologic/Psychiatric: positive: Oriented x3, CN's nml (2-12), Motor nml, Sensation nml, Depressed mood/affect (flat) Reflexes: Bicep (R): 3+, Bicep (L): 3+ - LABS Result Diagrams: 10/06/19 05:10 10/06/19 15:50 - SEPSIS Current Stage of Sepsis: Ruled out - FOLLOW UP Follow Up: Electrolyte panel and CK level in 2-5 days - TIME SPENT Time Spent in Discharge (Minutes): 55
[2019-10-06 18:41] VITALS: BP 117/85
[2019-10-07] MEDS ORDERED: amLODIPine 5 MG TABLET PO SCH (09:00)
== END 2019-10-06 18:00 | disposition home or self-care (01) ==
LOC: EDUNIT# → ED 09:11 → MS2 10:28
PROVIDERS: ADMIT Nurse Practitioner Gerontology; ATTEND Nurse Practitioner
DX: N17.9 Acute kidney failure, unspecified (principal); M62.82 Rhabdomyolysis; R11.2 Nausea with vomiting, unspecified; I10 Essential (primary) hypertension; F15.20 Other stimulant dependence, uncomplicated; F12.20 Cannabis dependence, uncomplicated; F17.210 Nicotine dependence, cigarettes, uncomplicated; F10.10 Alcohol abuse, uncomplicated; K86.1 Other chronic pancreatitis; G47.419 Narcolepsy without cataplexy
CPT/HCPCS: 36415; 51798; 76770; 80048; 80053; 80306; 80320; 81001; 82550; 83690; 83735; 84100; 84443; 84478; 84484; 85025; 93005; 96361; 96365; 96372; 96375; 96376; 99284; 99285; A9270; G0378; J1170; J1200; J7040; J7120; 81003; 87086

== ENCOUNTER 2019-11-06 20:08 | Outpatient (CLI) | payer MEDICAID | END 2019-11-06 23:59 | disposition critical access hospital (66) | LOC: EMS 20:08 | PROVIDERS: ATTEND Surgery | DX: R10.12 Left upper quadrant pain (principal); R11.2 Nausea with vomiting, unspecified | CPT/HCPCS: A0425; A0427; A0999 ==

== ENCOUNTER 2019-11-06 20:48 | Emergency (ER) | payer MEDICAID ==
[2019-11-06] MEDS ORDERED: HALOPERIDOL 5 MG/ML VIAL IVP ONE (21:02)
[2019-11-06] MEDS ORDERED: METOCLOPRAMIDE 10 MG/2 ML VIAL IVP STA (21:02)
[2019-11-06] MEDS ORDERED: diphenhydrAMINE INJ 50 MG/ML VIAL IVP STA (21:02)
[2019-11-06] MEDS ORDERED: SODIUM CHLORIDE 0.9% 1,000 ML IV ONE ×2 (21:03→22:49)
--- NOTE | 2019-11-06 21:04 | ED Physician Documentation ---
History of Present Illness - Stated complaint Stated Complaint: N/V - Chief complaint Chief Complaint: Abd Pain - Additonal information Additional information: This is a 38-year-old male with a history of Cannabinoid hyperemesis syndrome who presents with nausea and vomiting and some left lower quadrant abdominal pain. Patient has been smoking marijuana fairly regularly, he developed a bit of abdominal discomfort last night around 8PM, so he smoked more marijuana as he reports this will sometimes help with his symptoms, but today began having vomiting. His symptoms progress throughout the day, and he has not been able to hold down food. He tried eating pizza earlier and vomited it up. He has been vomiting continuously until he has been vomiting bile. No fever, no diarrhea. He denies any shortness of breath or chest pain. He states this feels similar to past episodes he has had. His abdominal discomfort is currently moderate in severity and localized over the left lower quadrant only. Taking a hot shower does make this better. Review of Systems Constitutional: denies: Fever Cardiac: denies: Chest pain / pressure Respiratory: denies: Dyspnea GI: reports: Abdominal Pain, Vomiting : denies: Dysuria Skin: denies: Rash Neurologic: denies: Generalized weakness Immunocompromised: denies: Immunocompromised PD PAST MEDICAL HISTORY - Past Medical History Past Medical History: Yes GI: Pancreatitis - Past Surgical History Past Surgical History: No - Present Medications Home Medications: Ambulatory Orders Medication Instructions Recorded Confirmed Ondansetron Odt [Zofran] 4 mg TL Q6H PRN #10 tablet 11/06/19 - Allergies Allergies/Adverse Reactions: Allergies Allergy/AdvReac Type Severity Reaction Status Date / Time No Known Drug Allergies Allergy Verified 11/06/19 20:55 - Social History Does the pt smoke?: No Smoking Status: Never smoker Does the pt drink ETOH?: No Does the pt have substance abuse?: No Substance Use and Type: Marijuana - Immunizations Immunizations: Other immun not current - POLST Patient has POLST: No PD ED PE NORMAL - Vitals Vital signs reviewed: Yes - General General: Alert and oriented X 3, No acute distress - HEENT HEENT: PERRL - Neck Neck: Supple, no meningeal sign - Cardiac Cardiac: RRR, No murmur - Respiratory Respiratory: Clear bilaterally - Abdomen Abdomen: Normal bowel sounds, Soft, Non distended, Other (Tender in the left lower quadrant, no guarding, remainder of abdomen is nontender.) - Derm Derm: Warm and dry - Extremities Extremities: No deformity - Neuro Neuro: Alert and oriented X 3 - Psych Psych: Normal mood, Normal affect Results - Vitals Vitals: Vital Signs - 24 hr 11/06/19 11/06/19 11/06/19 20:50 20:55 23:44 Temperature 37.2 C 37.2 C 37.0 C Heart Rate 73 73 56 L Respiratory 17 17 20 Rate Blood Pressure 152/101 H 152/101 H 128/79 O2 Saturation 97 97 98 Oxygen O2 Source Room air - Labs Labs: Laboratory Tests 11/06/19 11/06/19 11/06/19 21:20 21:20 23:15 WBC 6.5 RBC 6.02 Hgb 15.9 Hct 49.6 MCV 82.4 MCH 26.4 L MCHC 32.1 RDW 14.2 Plt Count 314 MPV 9.1 Neut # (Auto) 5.2 Lymph # (Auto) 0.7 L [place] # (Auto) 0.5 Eos # (Auto) 0.0 Baso # (Auto) 0.0 Absolute Nucleated RBC 0.00 Nucleated RBC % 0.0 Sodium 141 Potassium 3.5 Chloride 108 Carbon Dioxide 25 Anion Gap 8.0 BUN 20 Creatinine 1.1 Estimated GFR (MDRD) 91 Glucose 120 H Calcium 9.0 Total Bilirubin 0.6 AST 25 ALT 24 Alkaline Phosphatase 67 Total Protein 7.9 Albumin 4.9 Globulin 3.0 Albumin/Globulin Ratio 1.6 Lipase 44 Urine Color DARK YELLOW Urine Clarity CLEAR Urine pH 5.5 Ur Specific Star >=1.030 H Urine Protein 100 H Urine Glucose (UA) NEGATIVE Urine Ketones 15 H Urine Occult Blood NEGATIVE Urine Nitrite NEGATIVE Urine Bilirubin NEGATIVE Urine Urobilinogen 0.2 (NORMAL) Ur Leukocyte Esterase NEGATIVE Urine RBC 0-5 Urine WBC 0-3 Ur Squamous Epith Cells NONE SEEN Urine Bacteria Rare Urine Casts 6-10 Hyaline Casts Urine Mucus Marked Strands Ur Microscopic Review INDICATED Urine Culture Comments NOT INDICATED PD MEDICAL DECISION MAKING - ED course Complexity details: considered differential (Cannabinoid hyperemesis, pancreatitis, cholecystitis, colitis, gastroenteritis, medication side effect, electrolyte abnormality) ED course: On arrival patient is nontoxic-appearing, vital signs are unremarkable other than hypertension. IV was secured and labs were drawn patient was given crystalloid fluids, as well as Zofran. He was also given Haldol and Benadryl for his symptoms, which sound to be due to cannabinoid hyperemesis syndrome. He did require second dose of medications, after Toradol and Reglan he is feeling better, tolerating p.o., and his abdomen is benign. His CBC is unremarkable, CMP also unremarkable, lipase is normal. His urine showed a small number of ketones consistent with a starvation, no signs of infection. Given his benign abdomen, his improved symptoms, and his unremarkable vital signs, he appears stable for outpatient follow-up. I do not see signs of acute abdominal pathology today. I reviewed with him that he should avoid using marijuana. I also reviewed return precautions with him. Patient agrees with this plan and was discharged home in good condition. Departure - Departure Disposition: 01 Home, Self Care Clinical Impression: Cannabinoid hyperemesis syndrome Condition: Good Instructions: ED Nausea Vomiting Follow-Up: Your,PCP [Other] Prescriptions: Ondansetron Odt [Zofran] 4 mg TL Q6H PRN #10 tablet PRN Reason: Nausea / Vomiting Comments: As we discussed, I think that your nausea and vomiting is related to your marijuana use. Please stop using marijuana, I think this will improve your symptoms. You may use the Zofran as needed for nausea or vomiting. If you are developing worsening symptoms such as vomiting despite the Zofran, or increasing abdominal pain or fever, return to the emergency department Discharge Date/Time: 11/07/19 00:06
[2019-11-06 21:26] LABS: BASOPHILS % (AUTO) 0.5 %; EOSINOPHILS % (AUTO) 0.3 %; HGB - HEMOGLOBIN 15.9 g/dL (14.0-18.0); LYMPHOCYTES # (AUTO) 0.7 10^3/uL (1.5-3.5); LYMPHOCYTES % (AUTO) 11.2 %; MEAN CORPUSCULAR HEMOGLOBIN 26.4 pg (27.0-31.0); MEAN CORPUSCULAR HGB CONC 32.1 g/dL (32.0-36.0); MEAN CORPUSCULAR VOLUME 82.4 fL (80.0-94.0); MEAN PLATELET VOLUME 9.1 fL (7.4-11.4); MONOCYTES # (AUTO) 0.5 10^3/uL (0.0-1.0); NEUTROPHILS # (AUTO) 5.2 10^3/uL (1.5-6.6); NEUTROPHILS % (AUTO) 79.8 %; PLT - PLATELET COUNT 314 10^3/uL (130-450); RED BLOOD COUNT 6.02 10^6/uL (4.70-6.10); RED CELL DISTRIBUTION WIDTH 14.2 % (12.0-15.0); WHITE BLOOD COUNT 6.5 x10^3/uL (4.8-10.8)
[2019-11-06 21:40] LABS: ALBUMIN 4.9 g/dL (3.2-5.5); ALBUMIN/GLOBULIN RATIO 1.6 (1.0-2.2); BILIRUBIN,TOTAL 0.6 mg/dL (0.2-1.0); CREATININE 1.1 mg/dL (0.6-1.2); TOTAL PROTEIN 7.9 g/dL (6.7-8.2)
[2019-11-06] MEDS ORDERED: KETOROLAC 30 MG/ML VIAL IVP STA (22:48)
[2019-11-06 23:25] LABS: CLARITY,URINE CLEAR (CLEAR); GLUCOSE, URINE (UA) NEGATIVE (NEGATIVE); KETONES,URINE (UA) 15 mg/dL (NEGATIVE); LEUKOCYTE ESTERASE, URINE NEGATIVE (NEGATIVE); NITRITE,URINE NEGATIVE (NEGATIVE); OCCULT BLOOD,URINE NEGATIVE (NEGATIVE); PH,URINE 5.5 PH (5.0-7.5); PROTEIN,URINE 100 mg/dL (NEGATIVE); UROBILINOGEN,URINE 0.2 (NORMAL) E.U./dL (NORMAL)
[2019-11-06 23:28] LABS: BILIRUBIN,URINE NEGATIVE (NEGATIVE); ICTOTEST,URINE NEGATIVE
[2019-11-06 23:38] LABS: BACTERIA,URINE Rare /HPF (None Seen); CASTS, URINE 6-10 Hyaline Casts /LPF; MUCUS,URINE Marked Strands; RBC,URINE 0-5 /HPF (0-5); SQUAMOUS EPITHELIAL CELL,UR NONE SEEN (<= Few)
[2019-11-06 23:45] VITALS: BP 128/79
== END 2019-11-07 00:06 | disposition home or self-care (01) ==
LOC: ED 20:48 → MERGE 20:48 → ED 11-07 00:06
DX: R11.2 Nausea with vomiting, unspecified (principal); F12.988 Cannabis use, unspecified with other cannabis-induced disorder
CPT/HCPCS: 36415; 80053; 81001; 83690; 85025; 96361; 96374; 96375; 99284; 99285; J1200; J2765; 81003; 87086

== ENCOUNTER 2019-11-08 19:59 | Outpatient (CLI) | payer MEDICAID | END 2019-11-08 20:00 | disposition critical access hospital (66) | LOC: EMS 19:59 | PROVIDERS: ATTEND Surgery | DX: R10.9 Unspecified abdominal pain (principal) | CPT/HCPCS: A0425; A0427; A0999 ==

== ENCOUNTER 2019-11-08 20:25 | Emergency (ER) | payer MEDICAID ==
[2019-11-08] MEDS ORDERED: SODIUM CHLORIDE 0.9% 1,000 ML IV ONE (20:59)
[2019-11-08 21:20] LABS: BASOPHILS # (AUTO) 0.1 10^3/uL (0.0-0.1); BASOPHILS % (AUTO) 0.7 %; EOSINOPHILS # (AUTO) 0.1 10^3/uL (0.0-0.7); EOSINOPHILS % (AUTO) 0.8 %; HGB - HEMOGLOBIN 16.9 g/dL (14.0-18.0); LYMPHOCYTES # (AUTO) 1.8 10^3/uL (1.5-3.5); LYMPHOCYTES % (AUTO) 23.7 %; MEAN CORPUSCULAR HEMOGLOBIN 27.8 pg (27.0-31.0); MEAN CORPUSCULAR HGB CONC 33.6 g/dL (32.0-36.0); MEAN CORPUSCULAR VOLUME 82.6 fL (80.0-94.0); MEAN PLATELET VOLUME 9.3 fL (7.4-11.4); MONOCYTES # (AUTO) 0.8 10^3/uL (0.0-1.0); MONOCYTES % (AUTO) 10.9 %; NEUTROPHILS # (AUTO) 4.7 10^3/uL (1.5-6.6); NEUTROPHILS % (AUTO) 63.5 %; PLT - PLATELET COUNT 343 10^3/uL (130-450); RED BLOOD COUNT 6.09 10^6/uL (4.70-6.10); WHITE BLOOD COUNT 7.4 x10^3/uL (4.8-10.8)
[2019-11-08] MEDS ORDERED: SODIUM CHLORIDE 0.9% 1,000 ML IV STA ×2 (21:25→23:14)
--- NOTE | 2019-11-08 21:25 | ED Physician Documentation ---
PD HPI NVD - Stated complaint Stated Complaint: PANCREATITIS - Chief complaint Chief Complaint: Abd Pain - History obtained from History obtained from: Patient, EMS - History of Present Illness Timing - onset: Enter time (01:00) Timing - details: Abrupt onset Pain level max: 10 Pain level now: 10 Associated symptoms: Abdominal pain. No: Fever Improved by: Other (nothing) Worsened by: Other (nothing) Similar symptoms before: Diagnosis (suspected canabinoid hyperemesis) Recently seen: Emergency Dept (5+R 2 days ago for same) - Additonal information Additional information: BIBA. c/o diffuse abdominal pain, nausea, vomiting, unable to keep anything down (per patient). given 400cc NS and 4mg IV zofran en route by medics. patient well known to this ED for frequent ED visits for same symptoms. he had recent inpatient stay (last month) for LAZARO thought to be due to losses from vomiting and diarrhea. He says he has no prescription medications at home including no prescription pain medications nor antinauseants Review of Systems Constitutional: reports: Reviewed and negative Cardiac: reports: Reviewed and negative Respiratory: reports: Reviewed and negative GI: reports: Abdominal Pain, Nausea, Vomiting. denies: Diarrhea : denies: Dysuria, Frequency PD PAST MEDICAL HISTORY - Past Medical History Past Medical History: Yes Cardiovascular: Hypertension Respiratory: None Neuro: None Endocrine/Autoimmune: None GI: Pancreatitis : None HEENT: None Psych: Depression, Anxiety, Other Musculoskeletal: None Derm: None - Past Surgical History Past Surgical History: No Ortho: Other - Present Medications Home Medications: Ambulatory Orders Medication Instructions Recorded Confirmed Acetaminophen [Tylenol Extra 500 mg PO DAILY PRN 10/05/19 10/05/19 Strength] Calcium Carbonate [Tums (Calcium 500 mg PO DAILY PRN 10/05/19 10/05/19 Carbonate 500mg)] raNITIdine HCl [Zantac] 150 mg PO DAILY PRN 10/05/19 10/05/19 Nicotine 14 mg Patch [Nicoderm] 1 patch TOP DAILY #7 patch 10/06/19 Ondansetron HCl [Zofran] 8 mg PO Q4H PRN #30 tablet 10/06/19 oxyCODONE [Roxicodone] 5 mg PO Q4-6H #20 tablet 10/06/19 Ondansetron Odt [Zofran] 4 mg TL Q6H PRN #10 tablet 11/06/19 - Allergies Allergies/Adverse Reactions: Allergies Allergy/AdvReac Type Severity Reaction Status Date / Time morphine Allergy Hives Verified 11/09/19 19:07 - Social History Does the pt smoke?: No Smoking Status: Never smoker Does the pt drink ETOH?: No Does the pt have substance abuse?: No - Immunizations Immunizations are current?: Yes Immunizations: Other immun not current - POLST Patient has POLST: No POLST Status: Full Code PD ED PE NORMAL - Vitals Vital signs reviewed: Yes - General General: Alert and oriented X 3, Well developed/nourished, Other (appears uncomfortable, occasionally wretches loudly during H+P) - HEENT HEENT: PERRL, EOMI, Moist mucous membranes (difficult to assess accurately, due to vomiting at times during H+P) - Neck Neck: Supple, no meningeal sign - Cardiac Cardiac: No murmur - Respiratory Respiratory: No respiratory distress, Clear bilaterally - Abdomen Abdomen: Soft, Non distended, Other (diffuse tenderness with strong component of distractability) - Back Back: No CVA TTP - Derm Derm: Normal color, Warm and dry - Extremities Extremities: No edema - Neuro Neuro: Alert and oriented X 3 PD ED PE EXPANDED - Cardiac Cardiac: Tachy, Regular Rhythm Results - Vitals Vitals: Vital Signs - 24 hr 11/08/19 11/08/19 11/08/19 20:28 21:45 22:15 Temperature 35.7 C L Heart Rate 126 H 70 62 Respiratory 24 20 18 Rate Blood Pressure 128/88 H 193/120 H O2 Saturation 94 97 98 11/08/19 11/09/19 11/09/19 23:23 00:00 00:34 Temperature 36.7 C Heart Rate 64 59 L 55 L Respiratory 18 17 18 Rate Blood Pressure 191/122 H 207/118 H O2 Saturation 98 97 97 11/09/19 11/09/19 00:39 00:58 Temperature Heart Rate Respiratory 17 18 Rate Blood Pressure O2 Saturation Oxygen O2 Source Room air - Labs Labs: Laboratory Tests 11/08/19 11/08/19 21:11 21:11 WBC 7.4 RBC 6.09 Hgb 16.9 Hct 50.3 MCV 82.6 MCH 27.8 MCHC 33.6 RDW 14.0 Plt Count 343 MPV 9.3 Neut # (Auto) 4.7 Lymph # (Auto) 1.8 [place] # (Auto) 0.8 Eos # (Auto) 0.1 Baso # (Auto) 0.1 Absolute Nucleated RBC 0.00 Nucleated RBC % 0.0 Sodium 138 Potassium 3.3 L Chloride 103 Carbon Dioxide 24 Anion Gap 11.0 BUN 21 H Creatinine 1.5 H Estimated GFR (MDRD) 63 L Glucose 149 H Calcium 9.5 Total Bilirubin 0.7 AST 31 ALT 30 Alkaline Phosphatase 71 Total Protein 8.9 H Albumin 5.3 Globulin 3.6 Albumin/Globulin Ratio 1.5 Lipase 40 Ethyl Alcohol < 5.0 PD MEDICAL DECISION MAKING - ED course Complexity details: reviewed results, re-evaluated patient, considered differential, d/w patient ED course: improved in appearance after IV fluids, reglan, haldol, toradol, and benadryl. he had no further emesis. on reevaluation, he repeatedly asks for something stronger for the pain. he was given single dose of dilaudid with understanding that this was one-time dose only, along with more fluids and second dose of reglan, then discharged. Departure - Departure Disposition: 01 Home, Self Care Clinical Impression: Cyclical vomiting Condition: Good Instructions: ED Nausea Vomiting Discharge Date/Time: 11/09/19 00:59
[2019-11-08] MEDS ORDERED: METOCLOPRAMIDE 10 MG/2 ML VIAL IVP STA ×2 (21:26→23:14)
[2019-11-08] MEDS ORDERED: KETOROLAC 30 MG/ML VIAL IVP STA (21:26)
[2019-11-08] MEDS ORDERED: HALOPERIDOL 5 MG/ML VIAL IVP STA (21:26)
[2019-11-08] MEDS ORDERED: diphenhydrAMINE INJ 50 MG/ML VIAL IVP STA (21:27)
[2019-11-08 21:29] LABS: ALBUMIN 5.3 g/dL (3.2-5.5); ALBUMIN/GLOBULIN RATIO 1.5 (1.0-2.2); ALKALINE PHOSPHATASE 71 IU/L (42-121); ALT ALANINE AMINOTRANSFERASE 30 IU/L (10-60); AST ASPARTATE AMINOTRANSFERASE 31 IU/L (10-42); BILIRUBIN,TOTAL 0.7 mg/dL (0.2-1.0); BUN - BLOOD UREA NITROGEN 21 mg/dL (6-20); CALCIUM 9.5 mg/dL (8.5-10.3); CARBON DIOXIDE - CO2 24 mmol/L (21-32); CHLORIDE 103 mmol/L (101-111); CREATININE 1.5 mg/dL (0.6-1.2); GLUCOSE 149 mg/dL (70-100); LIPASE 40 U/L (22-51); SODIUM 138 mmol/L (135-145); TOTAL PROTEIN 8.9 g/dL (6.7-8.2)
[2019-11-08] MEDS ORDERED: HYDROmorphone 1 MG/ML CARPUJECT IVP STA (23:14)
[2019-11-09 00:35] VITALS: BP 207/118
== END 2019-11-09 00:59 | disposition home or self-care (01) ==
LOC: EDUNIT# → ED 20:25
DX: R11.15 Cyclical vomiting syndrome unrelated to migraine (principal); I10 Essential (primary) hypertension
CPT/HCPCS: 36415; 80053; 80320; 83690; 85025; 96361; 96374; 96375; 99284

== ENCOUNTER 2019-11-09 18:31 | Outpatient (CLI) | payer MEDICAID | END 2019-11-09 18:32 | disposition critical access hospital (66) | LOC: EMS 18:31 | PROVIDERS: ATTEND Surgery | DX: R10.12 Left upper quadrant pain (principal) | CPT/HCPCS: A0425; A0427; A0999 ==

== ENCOUNTER 2019-11-09 18:58 | Emergency (ER) | payer MEDICAID ==
[2019-11-09] MEDS ORDERED: SODIUM CHLORIDE 0.9% 1,000 ML IV ONE (19:08)
[2019-11-09 19:28] LABS: BASOPHILS # (AUTO) 0.1 10^3/uL (0.0-0.1); BASOPHILS % (AUTO) 0.5 %; EOSINOPHILS % (AUTO) 0.2 %; HGB - HEMOGLOBIN 15.8 g/dL (14.0-18.0); LYMPHOCYTES # (AUTO) 2.2 10^3/uL (1.5-3.5); LYMPHOCYTES % (AUTO) 19.7 %; MEAN CORPUSCULAR HEMOGLOBIN 27.8 pg (27.0-31.0); MEAN CORPUSCULAR HGB CONC 33.9 g/dL (32.0-36.0); MEAN CORPUSCULAR VOLUME 81.9 fL (80.0-94.0); MEAN PLATELET VOLUME 9.5 fL (7.4-11.4); MONOCYTES % (AUTO) 9.3 %; NEUTROPHILS # (AUTO) 7.7 10^3/uL (1.5-6.6); NEUTROPHILS % (AUTO) 69.8 %; PLT - PLATELET COUNT 318 10^3/uL (130-450); RED BLOOD COUNT 5.69 10^6/uL (4.70-6.10); RED CELL DISTRIBUTION WIDTH 13.8 % (12.0-15.0); WHITE BLOOD COUNT 11.1 x10^3/uL (4.8-10.8)
[2019-11-09] MEDS ORDERED: HALOPERIDOL 5 MG/ML VIAL IVP ONE (19:30)
[2019-11-09] MEDS ORDERED: KETOROLAC 30 MG/ML VIAL IVP STA (19:30)
--- NOTE | 2019-11-09 19:30 | ED Physician Documentation ---
PD HPI ABD PAIN - Stated complaint Stated Complaint: ABD PN - Chief complaint Chief Complaint: Abd Pain - History obtained from History obtained from: Patient, EMS - History of Present Illness Timing - onset: Today (38-year-old gentleman with chronic recurrent abdominal pain, no clear cause. Has had thorough work-ups without explanation. He is starting to come around to the realization that this may be due to marijuana. He developed upper and left-sided abdominal pain around noon today with nausea. No diarrhea or changes in bowel movements. He does admit that hot showers help significantly.) Review of Systems Ten Systems: 10 systems reviewed and negative Constitutional: denies: Fever, Chills GI: reports: Abdominal Pain, Nausea, Vomiting. denies: Diarrhea PD PAST MEDICAL HISTORY - Past Medical History Cardiovascular: Hypertension Respiratory: None Neuro: None Endocrine/Autoimmune: None GI: Pancreatitis : None HEENT: None Psych: Depression, Anxiety, Other Musculoskeletal: None Derm: None - Past Surgical History Past Surgical History: No Ortho: Other - Present Medications Home Medications: Ambulatory Orders Medication Instructions Recorded Confirmed Acetaminophen [Tylenol Extra 500 mg PO DAILY PRN 10/05/19 11/09/19 Strength] Calcium Carbonate [Tums (Calcium 500 mg PO DAILY PRN 10/05/19 11/09/19 Carbonate 500mg)] raNITIdine HCl [Zantac] 150 mg PO DAILY PRN 10/05/19 11/09/19 Nicotine 14 mg Patch [Nicoderm] 1 patch TOP DAILY #7 patch 10/06/19 11/09/19 oxyCODONE [Roxicodone] 5 mg PO Q4-6H #20 tablet 10/06/19 11/09/19 Ondansetron Odt [Zofran] 4 mg TL Q6H PRN #10 tablet 11/06/19 11/09/19 - Allergies Allergies/Adverse Reactions: Allergies Allergy/AdvReac Type Severity Reaction Status Date / Time morphine Allergy Hives Verified 11/09/19 19:07 - Social History Does the pt smoke?: No Smoking Status: Never smoker Does the pt drink ETOH?: No Does the pt have substance abuse?: No - Immunizations Immunizations are current?: Yes Immunizations: Other immun not current - POLST Patient has POLST: No POLST Status: Full Code PD ED PE NORMAL - Vitals Vital signs reviewed: Yes - General General: Alert and oriented X 3, Other (Appears uncomfortable) - Respiratory Respiratory: No respiratory distress, Clear bilaterally - Abdomen Abdomen: Normal bowel sounds, Soft, Non tender - Neuro Neuro: Alert and oriented X 3, Normal speech Results - Vitals Vitals: Vital Signs - 24 hr 11/09/19 11/09/19 11/09/19 19:03 19:08 19:59 Temperature 36.8 C Heart Rate 52 L 50 L 47 L Respiratory 18 17 14 Rate Blood Pressure 141/100 H 132/91 H 141/89 H O2 Saturation 96 97 97 11/09/19 20:38 Temperature 36.4 C L Heart Rate 47 L Respiratory 15 Rate Blood Pressure 121/72 O2 Saturation 97 Oxygen O2 Source Room air - Labs Labs: Laboratory Tests 11/09/19 11/09/19 19:15 19:48 WBC 11.1 H RBC 5.69 Hgb 15.8 Hct 46.6 MCV 81.9 MCH 27.8 MCHC 33.9 RDW 13.8 Plt Count 318 MPV 9.5 Neut # (Auto) 7.7 H Lymph # (Auto) 2.2 [place] # (Auto) 1.0 Eos # (Auto) 0.0 Baso # (Auto) 0.1 Absolute Nucleated RBC 0.00 Nucleated RBC % 0.0 Sodium 137 Potassium 3.1 L Chloride 103 Carbon Dioxide 24 Anion Gap 10.0 BUN 25 H Creatinine 1.1 Estimated GFR (MDRD) 91 Glucose 114 H Calcium 9.3 Total Bilirubin 1.1 H AST 34 ALT 28 Alkaline Phosphatase 57 Total Protein 7.4 Albumin 4.4 Globulin 3.0 Albumin/Globulin Ratio 1.5 Lipase 27 Ethyl Alcohol < 5.0 PD MEDICAL DECISION MAKING - ED course ED course: 38-year-old gentleman with chronic recurrent abdominal pain, suspect cannabinoid hyperemesis, counseled to quit using marijuana. Labs are relatively unremarkable. [place] much better after some Haldol and Toradol and kept down a p.o. challenge. Departure - Departure Disposition: 01 Home, Self Care Clinical Impression: Cannabinoid hyperemesis syndrome Condition: Good Record reviewed to determine appropriate education?: Yes Instructions: ED Nausea Vomiting Comments: As discussed, I truly believe that if you stop using marijuana, within a week you will feel like it completely new person. Return anytime for further evaluation and treatment.
[2019-11-09 20:06] LABS: ALBUMIN 4.4 g/dL (3.2-5.5); ALBUMIN/GLOBULIN RATIO 1.5 (1.0-2.2); ALKALINE PHOSPHATASE 57 IU/L (42-121); ALT ALANINE AMINOTRANSFERASE 28 IU/L (10-60); AST ASPARTATE AMINOTRANSFERASE 34 IU/L (10-42); BILIRUBIN,TOTAL 1.1 mg/dL (0.2-1.0); BUN - BLOOD UREA NITROGEN 25 mg/dL (6-20); CALCIUM 9.3 mg/dL (8.5-10.3); CARBON DIOXIDE - CO2 24 mmol/L (21-32); CHLORIDE 103 mmol/L (101-111); CREATININE 1.1 mg/dL (0.6-1.2); GLUCOSE 114 mg/dL (70-100); LIPASE 27 U/L (22-51); SODIUM 137 mmol/L (135-145); TOTAL PROTEIN 7.4 g/dL (6.7-8.2)
[2019-11-09] MEDS ORDERED: POTASSIUM CHLORIDE 20 MEQ TABLET PO STA (20:32)
[2019-11-09 20:39] VITALS: BP 121/72
[2019-11-09] MEDS ORDERED: oxyCODONE/ACET 5/325 Prepack 4 PO STA (20:45)
== END 2019-11-09 21:24 | disposition home or self-care (01) ==
LOC: EDUNIT# → ED 18:58
DX: R11.2 Nausea with vomiting, unspecified (principal); I10 Essential (primary) hypertension; R11.15 Cyclical vomiting syndrome unrelated to migraine
CPT/HCPCS: 36415; 80053; 80320; 83690; 85025; 96361; 96374; 96375; 99283; 99284; 99285; A9270; J1170; J1200; J2765

== ENCOUNTER 2019-11-10 12:04 | Emergency (ER) | payer MEDICAID ==
--- NOTE | 2019-11-10 13:22 | ED Physician Documentation ---
PD HPI ABD PAIN - Stated complaint Stated Complaint: ABD PX - Chief complaint Chief Complaint: Abd Pain - History obtained from History obtained from: Patient - History of Present Illness Timing - onset: How many days ago (4) Timing - duration: Days (4) Timing - details: Gradual onset, Still present Quality: Sharp, Pain Location: Epigastric Radiation: Upper back Improved by: Vomiting Worsened by: Position, Palpation Associated symptoms: Nausea, Vomiting, Loss of appetite. No: Diarrhea, Constipation Similar symptoms before: Diagnosis (canabis hyperemesis) Recently seen: Emergency Dept - Additional information Additional information: 38-year-old male well-known to the emergency department with cannabis hy peremesis with abdominal pain is his primary complaint is developed abdominal pain and vomiting again over the past 4 days has been seen in the emergency department 3 times since then most recently yesterday. Yesterday he had relief of his symptoms with Haldol and Toradol and overnight his symptoms have returned and he has come back to the emergency department for further treatment. He does state that he is no longer vomiting but has epigastric pain.He has a prior history of pancreatitis at one time and he has had a CAT scan as part of the work-up most recently in April of last year. Review of Systems Constitutional: denies: Fever, Chills Eyes: denies: Decreased vision Ears: denies: Ear pain Nose: denies: Rhinorrhea / runny nose, Congestion Throat: denies: Sore throat Cardiac: denies: Chest pain / pressure, Palpitations Respiratory: denies: Dyspnea, Cough GI: reports: Abdominal Pain, Nausea, Vomiting : denies: Dysuria, Frequency PD PAST MEDICAL HISTORY - Past Medical History Cardiovascular: Hypertension Respiratory: None Neuro: None Endocrine/Autoimmune: None GI: Pancreatitis : None HEENT: None Psych: Depression, Anxiety, Other Musculoskeletal: None Derm: None - Past Surgical History Past Surgical History: No Ortho: Other - Present Medications Home Medications: Ambulatory Orders Medication Instructions Recorded Confirmed Acetaminophen [Tylenol Extra 500 mg PO DAILY PRN 10/05/19 11/09/19 Strength] Calcium Carbonate [Tums (Calcium 500 mg PO DAILY PRN 10/05/19 11/09/19 Carbonate 500mg)] raNITIdine HCl [Zantac] 150 mg PO DAILY PRN 10/05/19 11/09/19 Nicotine 14 mg Patch [Nicoderm] 1 patch TOP DAILY #7 patch 10/06/19 11/09/19 oxyCODONE [Roxicodone] 5 mg PO Q4-6H #20 tablet 10/06/19 11/09/19 Ondansetron Odt [Zofran] 4 mg TL Q6H PRN #10 tablet 11/06/19 11/09/19 Oxycodone HCl/Acetaminophen 1 - 2 each PO Q6H PRN #8 tablet 11/10/19 [Percocet 5-325 mg Tablet] Promethazine [Phenergan] 25 mg PO Q6H PRN #10 tab 11/10/19 - Allergies Allergies/Adverse Reactions: Allergies Allergy/AdvReac Type Severity Reaction Status Date / Time morphine Allergy Hives Verified 11/09/19 19:07 - Social History Does the pt smoke?: No Smoking Status: Never smoker Does the pt drink ETOH?: No Does the pt have substance abuse?: No - Immunizations Immunizations are current?: Yes Immunizations: Other immun not current - POLST Patient has POLST: No POLST Status: Full Code PD ED PE NORMAL - Vitals Vital signs reviewed: Yes (hypertensive ) - General General: Alert and oriented X 3, Well developed/nourished, Other (Nail Setter tone and flattened affect consistent with pain) - HEENT HEENT: Atraumatic, PERRL, EOMI - Neck Neck: Supple, no meningeal sign, No bony TTP - Cardiac Cardiac: RRR, No murmur - Respiratory Respiratory: No respiratory distress, Clear bilaterally - Abdomen Abdomen: Normal bowel sounds, Non distended, No organomegaly, Other (minimal epigastric tenderness to a firm scaphoid abdomen. ) - Back Back: No CVA TTP, No spinal TTP - Derm Derm: Normal color, Warm and dry, No rash - Extremities Extremities: No deformity, No edema - Neuro Neuro: Alert and oriented X 3, beater tender 2-12 intact, No motor deficit, No sensory deficit, Normal speech Eye Opening: Spontaneous Motor: Obeys Commands Verbal: Oriented GCS Score: 15 - Psych Psych: Normal mood Results - Vitals Vitals: Vital Signs - 24 hr 11/10/19 11/10/19 12:09 14:27 Temperature 36.7 C Heart Rate 56 L 40 L Respiratory 18 12 Rate Blood Pressure 152/100 H 127/80 O2 Saturation 97 100 Oxygen O2 Source Room air - Labs Labs: Laboratory Tests 11/10/19 11/10/19 13:30 13:30 WBC 6.1 RBC 5.28 Hgb 14.8 Hct 43.9 MCV 83.1 MCH 28.0 MCHC 33.7 RDW 13.7 Plt Count 273 MPV 9.4 Neut # (Auto) 2.9 Lymph # (Auto) 2.4 [place] # (Auto) 0.6 Eos # (Auto) 0.1 Baso # (Auto) 0.1 Absolute Nucleated RBC 0.00 Nucleated RBC % 0.0 Sodium 134 L Potassium 3.3 L Chloride 97 L Carbon Dioxide 27 Anion Gap 10.0 BUN 30 H Creatinine 1.3 H Estimated GFR (MDRD) 75 L Glucose 106 H Calcium 9.6 Total Bilirubin 0.7 AST 41 ALT 30 Alkaline Phosphatase 57 Total Protein 7.3 Albumin 4.6 Globulin 2.7 Albumin/Globulin Ratio 1.7 Lipase 34 Ethyl Alcohol < 5.0 PD MEDICAL DECISION MAKING - ED course Complexity details: reviewed old records, reviewed results, re-evaluated patient, considered differential, d/w patient ED course: 38-year-old male with cannabis hyperemesis syndrome has returned for his third visit to the emergency department with persistent symptoms. He did feel that he would be able to get by with his medications last night and is here back in the ED. He feels again after treatment that he will be okay. He is treated here today with Haldol 5 mg intravenously and Toradol 30 mg IV. Departure - Departure Disposition: 01 Home, Self Care Clinical Impression: Cannabinoid hyperemesis syndrome Instructions: ED Nausea Vomiting Follow-Up: JEANCARLOS COPELAND MD [Primary Care Provider] - Prescriptions: Oxycodone HCl/Acetaminophen [Percocet 5-325 mg Tablet] 1 - 2 each PO Q6H PRN #8 tablet PRN Reason: pain Promethazine [Phenergan] 25 mg PO Q6H PRN #10 tab PRN Reason: Nausea / Vomiting
[2019-11-10] MEDS ORDERED: HALOPERIDOL 5 MG/ML VIAL IVP ONE (13:23)
[2019-11-10] MEDS ORDERED: SODIUM CHLORIDE 0.9% 1,000 ML IV ONE (13:23)
[2019-11-10] MEDS ORDERED: KETOROLAC 30 MG/ML VIAL IVP STA (13:24)
[2019-11-10 13:36] LABS: BASOPHILS # (AUTO) 0.1 10^3/uL (0.0-0.1); EOSINOPHILS # (AUTO) 0.1 10^3/uL (0.0-0.7); EOSINOPHILS % (AUTO) 2.3 %; HGB - HEMOGLOBIN 14.8 g/dL (14.0-18.0); LYMPHOCYTES # (AUTO) 2.4 10^3/uL (1.5-3.5); LYMPHOCYTES % (AUTO) 39.7 %; MEAN CORPUSCULAR HGB CONC 33.7 g/dL (32.0-36.0); MEAN CORPUSCULAR VOLUME 83.1 fL (80.0-94.0); MEAN PLATELET VOLUME 9.4 fL (7.4-11.4); MONOCYTES # (AUTO) 0.6 10^3/uL (0.0-1.0); MONOCYTES % (AUTO) 9.8 %; NEUTROPHILS # (AUTO) 2.9 10^3/uL (1.5-6.6); NEUTROPHILS % (AUTO) 46.9 %; PLT - PLATELET COUNT 273 10^3/uL (130-450); RED BLOOD COUNT 5.28 10^6/uL (4.70-6.10); RED CELL DISTRIBUTION WIDTH 13.7 % (12.0-15.0); WHITE BLOOD COUNT 6.1 x10^3/uL (4.8-10.8)
[2019-11-10 13:58] LABS: ALBUMIN 4.6 g/dL (3.2-5.5); ALBUMIN/GLOBULIN RATIO 1.7 (1.0-2.2); ALKALINE PHOSPHATASE 57 IU/L (42-121); ALT ALANINE AMINOTRANSFERASE 30 IU/L (10-60); AST ASPARTATE AMINOTRANSFERASE 41 IU/L (10-42); BILIRUBIN,TOTAL 0.7 mg/dL (0.2-1.0); BUN - BLOOD UREA NITROGEN 30 mg/dL (6-20); CALCIUM 9.6 mg/dL (8.5-10.3); CARBON DIOXIDE - CO2 27 mmol/L (21-32); CHLORIDE 97 mmol/L (101-111); CREATININE 1.3 mg/dL (0.6-1.2); GLUCOSE 106 mg/dL (70-100); LIPASE 34 U/L (22-51); SODIUM 134 mmol/L (135-145); TOTAL PROTEIN 7.3 g/dL (6.7-8.2)
[2019-11-10 14:27] VITALS: BP 127/80
== END 2019-11-10 15:22 | disposition home or self-care (01) ==
LOC: ED 12:04
DX: R11.2 Nausea with vomiting, unspecified (principal); R10.13 Epigastric pain
CPT/HCPCS: 36415; 80053; 80320; 83690; 85025; 96361; 96374; 99284

== ENCOUNTER 2019-11-11 19:10 | Outpatient (CLI) | payer MEDICAID | END 2019-11-11 19:11 | disposition critical access hospital (66) | LOC: EMS 19:10 | PROVIDERS: ATTEND Surgery | DX: R10.9 Unspecified abdominal pain (principal); R11.0 Nausea | CPT/HCPCS: A0425; A0427; A0999 ==

== ENCOUNTER 2019-11-11 19:39 | Emergency (ER) | payer MEDICAID ==
[2019-11-11] MEDS ORDERED: HALOPERIDOL 5 MG/ML VIAL IVP STA (20:01)
[2019-11-11] MEDS ORDERED: SODIUM CHLORIDE 0.9% 1,000 ML IV ONE (20:01)
[2019-11-11] MEDS ORDERED: diphenhydrAMINE INJ 50 MG/ML VIAL IVP STA (20:01)
--- NOTE | 2019-11-11 20:11 | ED Physician Documentation ---
History of Present Illness - Stated complaint Stated Complaint: ABD PN/ - Chief complaint Chief Complaint: Abd Pain - History obtained from History obtained from: Patient - History of Present Illness Timing: Chronic Pain level max: 9 Pain level now: 9 - Additonal information Additional information: 38-year-old male with Cannabinoid induced hyperemesis. Frequent flyer to the emergency department. Has been seen here several times for same. He states he last used marijuana last night. This is a chronic recurrent issue for him. No new complaints today. He was given fentanyl with EMS. Has had nausea but no pain. States his abdominal pain is worsening. He states that he has pancreatitis, but his lipase has been normal in the last 4 days. Denies any alcohol use. Worse with using marijuana. Nothing makes it better Review of Systems Ten Systems: 10 systems reviewed and negative Constitutional: denies: Fever, Chills Respiratory: denies: Cough GI: reports: Abdominal Pain, Nausea. denies: Vomiting, Diarrhea Skin: denies: Rash Musculoskeletal: denies: Neck pain, Back pain Neurologic: denies: Headache PD PAST MEDICAL HISTORY - Past Medical History Past Medical History: Yes Cardiovascular: Hypertension Respiratory: None Neuro: None Endocrine/Autoimmune: None GI: Pancreatitis : None HEENT: None Psych: Depression, Anxiety, Other Musculoskeletal: None Derm: None - Past Surgical History Past Surgical History: No Ortho: Other - Present Medications Home Medications: Ambulatory Orders Medication Instructions Recorded Confirmed Acetaminophen [Tylenol Extra 500 mg PO DAILY PRN 10/05/19 11/09/19 Strength] Calcium Carbonate [Tums (Calcium 500 mg PO DAILY PRN 10/05/19 11/09/19 Carbonate 500mg)] raNITIdine HCl [Zantac] 150 mg PO DAILY PRN 10/05/19 11/09/19 Nicotine 14 mg Patch [Nicoderm] 1 patch TOP DAILY #7 patch 10/06/19 11/09/19 oxyCODONE [Roxicodone] 5 mg PO Q4-6H #20 tablet 10/06/19 11/09/19 Ondansetron Odt [Zofran] 4 mg TL Q6H PRN #10 tablet 11/06/19 11/09/19 Oxycodone HCl/Acetaminophen 1 - 2 each PO Q6H PRN #8 tablet 11/10/19 [Percocet 5-325 mg Tablet] Promethazine [Phenergan] 25 mg PO Q6H PRN #10 tab 11/10/19 - Allergies Allergies/Adverse Reactions: Allergies Allergy/AdvReac Type Severity Reaction Status Date / Time morphine Allergy Hives Verified 11/09/19 19:07 - Social History Does the pt smoke?: No Smoking Status: Never smoker Does the pt drink ETOH?: No Does the pt have substance abuse?: No - Immunizations Immunizations are current?: Yes Immunizations: Other immun not current - POLST Patient has POLST: No POLST Status: Full Code PD ED PE NORMAL - Vitals Vital signs reviewed: Yes - General General: Alert and oriented X 3, No acute distress, Well developed/nourished - HEENT HEENT: PERRL, Moist mucous membranes - Neck Neck: Supple, no meningeal sign - Cardiac Cardiac: RRR, Strong equal pulses - Respiratory Respiratory: No respiratory distress, Clear bilaterally - Abdomen Abdomen: Soft, Other (Mild diffuse tenderness to palpation. No peritoneal signs) - Back Back: No CVA TTP, No spinal TTP - Derm Derm: Warm and dry - Extremities Extremities: No edema, No calf tenderness / cord - Neuro Neuro: Alert and oriented X 3 - Psych Psych: Normal mood, Normal affect Results - Vitals Vitals: Vital Signs - 24 hr 11/11/19 11/11/19 19:47 21:24 Temperature 37.3 C Heart Rate 61 47 L Respiratory 18 16 Rate Blood Pressure 134/91 H 106/59 L O2 Saturation 98 99 Oxygen O2 Source Room air - Labs Labs: Laboratory Tests 11/11/19 11/11/19 11/11/19 19:02 20:10 20:10 WBC 6.2 RBC 4.93 Hgb 13.8 L Hct 40.3 L MCV 81.7 MCH 28.0 MCHC 34.2 RDW 13.1 Plt Count 266 MPV 9.5 Neut # (Auto) 4.3 Lymph # (Auto) 1.2 L [place] # (Auto) 0.5 Eos # (Auto) 0.2 Baso # (Auto) 0.0 Absolute Nucleated RBC 0.00 Nucleated RBC % 0.0 Sodium 135 Potassium 3.0 L Chloride 98 L Carbon Dioxide 29 Anion Gap 8.0 BUN 25 H Creatinine 1.0 Estimated GFR (MDRD) 101 Glucose 108 H Calcium 9.3 Total Bilirubin 0.6 AST 32 ALT 29 Alkaline Phosphatase 53 Total Protein 6.9 Albumin 4.3 Globulin 2.6 Albumin/Globulin Ratio 1.7 Lipase 60 H Urine Color YELLOW Urine Clarity CLEAR Urine pH 6.5 Ur Specific [place] 1.015 Urine Protein NEGATIVE Urine Glucose (UA) NEGATIVE Urine Ketones NEGATIVE Urine Occult Blood NEGATIVE Urine Nitrite NEGATIVE Urine Bilirubin NEGATIVE Urine Urobilinogen 0.2 (NORMAL) Ur Leukocyte Esterase NEGATIVE Ur Microscopic Review NOT INDICATED Urine Culture Comments NOT INDICATED Urine Opiates Screen NEGATIVE Ur Oxycodone Screen POSITIVE H Urine Methadone Screen NEGATIVE Ur Propoxyphene Screen NEGATIVE Ur Barbiturates Screen NEGATIVE Ur Tricyclics Screen NEGATIVE Ur Phencyclidine Scrn NEGATIVE Ur Amphetamine Screen NEGATIVE U Methamphetamines Scrn NEGATIVE U Benzodiazepines Scrn NEGATIVE Urine Cocaine Screen NEGATIVE U Cannabinoids Screen POSITIVE H PD MEDICAL DECISION MAKING - ED course Complexity details: reviewed results, re-evaluated patient, considered differential, d/w patient ED course: Patient with cannabinoid induced hyperemesis. No significant lab abnormalities. Improved with Haldol and Benadryl. Given IV fluids. Informed him to stop using marijuana once again. Patient counseled regarding signs and symptoms for which I believe and urgent re-evaluation would be necessary. Patient with good understanding of and agreement to plan and is comfortable going home at this time This document was made in part using voice recognition software. While efforts are made to proofread this document, sound alike and grammatical errors may occur. Departure - Departure Disposition: 01 Home, Self Care Clinical Impression: Cannabinoid hyperemesis syndrome Abdominal pain Qualifiers: Abdominal location: unspecified location Qualified Code(s): R10.9 - Unspecified abdominal pain Condition: Good Instructions: ED Marijuana Abuse Follow-Up: your,doctor in 2 days [Other] Comments: Continue your current medications at home. You need to stop using marijuana. This is likely the cause of your chronic recurrent symptoms. You will need to be off of marijuana for at least 3 to 4 months.
[2019-11-11 20:19] LABS: BASOPHILS % (AUTO) 0.6 %; EOSINOPHILS # (AUTO) 0.2 10^3/uL (0.0-0.7); EOSINOPHILS % (AUTO) 2.7 %; HGB - HEMOGLOBIN 13.8 g/dL (14.0-18.0); LYMPHOCYTES # (AUTO) 1.2 10^3/uL (1.5-3.5); LYMPHOCYTES % (AUTO) 19.7 %; MEAN CORPUSCULAR HGB CONC 34.2 g/dL (32.0-36.0); MEAN CORPUSCULAR VOLUME 81.7 fL (80.0-94.0); MEAN PLATELET VOLUME 9.5 fL (7.4-11.4); MONOCYTES # (AUTO) 0.5 10^3/uL (0.0-1.0); MONOCYTES % (AUTO) 8.2 %; NEUTROPHILS # (AUTO) 4.3 10^3/uL (1.5-6.6); NEUTROPHILS % (AUTO) 68.5 %; PLT - PLATELET COUNT 266 10^3/uL (130-450); RED BLOOD COUNT 4.93 10^6/uL (4.70-6.10); RED CELL DISTRIBUTION WIDTH 13.1 % (12.0-15.0); WHITE BLOOD COUNT 6.2 x10^3/uL (4.8-10.8)
[2019-11-11 20:29] LABS: ALBUMIN 4.3 g/dL (3.2-5.5); ALBUMIN/GLOBULIN RATIO 1.7 (1.0-2.2); BILIRUBIN,TOTAL 0.6 mg/dL (0.2-1.0); CALCIUM 9.3 mg/dL (8.5-10.3); TOTAL PROTEIN 6.9 g/dL (6.7-8.2)
[2019-11-11 21:06] LABS: MUDS CUTOFF CONCENTRATIONS CUTOFF CONC BELOW:
[2019-11-11 21:11] LABS: BILIRUBIN,URINE NEGATIVE (NEGATIVE); GLUCOSE, URINE (UA) NEGATIVE (NEGATIVE); KETONES,URINE (UA) NEGATIVE (NEGATIVE); LEUKOCYTE ESTERASE, URINE NEGATIVE (NEGATIVE); NITRITE,URINE NEGATIVE (NEGATIVE); OCCULT BLOOD,URINE NEGATIVE (NEGATIVE); PH,URINE 6.5 PH (5.0-7.5); PROTEIN,URINE NEGATIVE (NEGATIVE); UROBILINOGEN,URINE 0.2 (NORMAL) E.U./dL (NORMAL)
[2019-11-11 21:20] LABS: CLARITY,URINE CLEAR (CLEAR)
[2019-11-11 21:23] LABS: AMPHETAMINE SCREEN,URINE NEGATIVE (NEGATIVE); BENZODIAZEPINES SCREEN, URINE NEGATIVE (NEGATIVE); COCAINE SCREEN URINE NEGATIVE (NEGATIVE); METHADONE SCREEN, URINE NEGATIVE (NEGATIVE); METHAMPHETAMINES SCREEN, URINE NEGATIVE (NEGATIVE); OPIATE SCREEN, URINE NEGATIVE (NEGATIVE); OXYCODONE SCREEN, URINE POSITIVE (NEGATIVE); PROPOXYPHENE SCREEN, URINE NEGATIVE (NEGATIVE); TRICYCLIC ANTIDEPRESSANT,URINE NEGATIVE (NEGATIVE)
[2019-11-11 21:25] VITALS: BP 106/59
== END 2019-11-11 21:31 | disposition home or self-care (01) ==
LOC: EDUNIT# → EDBD → ED 19:39
DX: R10.9 Unspecified abdominal pain (principal); R11.0 Nausea; I10 Essential (primary) hypertension
CPT/HCPCS: 36415; 80053; 80306; 81003; 83690; 85025; 96361; 96374; 96375; 99283; 99284; J1200; 81001; 87086

== ENCOUNTER 2019-11-13 10:23 | Outpatient (CLI) | payer MEDICAID | END 2019-11-13 10:24 | disposition critical access hospital (66) | LOC: EMS 10:23 | PROVIDERS: ATTEND Surgery | DX: R10.9 Unspecified abdominal pain (principal) | CPT/HCPCS: A0425; A0427; A0999 ==

== ENCOUNTER 2019-11-13 10:52 | Emergency (ER) | payer MEDICAID ==
--- NOTE | 2019-11-13 11:14 | ED Physician Documentation ---
PD HPI ABD PAIN - Stated complaint Stated Complaint: ABD PAIN - Chief complaint Chief Complaint: Abd Pain - History obtained from History obtained from: Patient (38 yo M w/ pmh of pancreatitis and cannabis hyperemesis presents with persistent nausea, vomiting, and a burning pain in the mid epigastric into left upper quadrant and left flank. He has been dealing with this for "15 years" but recently it has been worse. He has been here 5 times in the past week for similar sx, most recently 2 days ago when his labs were reassuring and sx improved with haldol and benadryl. He states he has not been able to eat for about 5 days. Last marijuana was 2 days ago. Denies etoh use, denies other drug use.) Review of Systems Constitutional: reports: Reviewed and negative Cardiac: reports: Reviewed and negative Respiratory: reports: Reviewed and negative GI: reports: Abdominal Pain, Nausea, Vomiting : reports: Reviewed and negative Musculoskeletal: reports: Reviewed and negative PD PAST MEDICAL HISTORY - Past Medical History Past Medical History: Yes Cardiovascular: Hypertension, Deep vein thrombosis Respiratory: Asthma Neuro: None Endocrine/Autoimmune: None GI: GERD, Pancreatitis : None HEENT: None Psych: Depression, Anxiety, Panic attacks, Other Musculoskeletal: None Derm: None - Past Surgical History Past Surgical History: No Ortho: Other - Present Medications Home Medications: Ambulatory Orders Medication Instructions Recorded Confirmed Acetaminophen [Tylenol Extra 500 mg PO DAILY PRN 10/05/19 11/09/19 Strength] Calcium Carbonate [Tums (Calcium 500 mg PO DAILY PRN 10/05/19 11/09/19 Carbonate 500mg)] raNITIdine HCl [Zantac] 150 mg PO DAILY PRN 10/05/19 11/09/19 Nicotine 14 mg Patch [Nicoderm] 1 patch TOP DAILY #7 patch 10/06/19 11/09/19 oxyCODONE [Roxicodone] 5 mg PO Q4-6H #20 tablet 10/06/19 11/09/19 Ondansetron Odt [Zofran] 4 mg TL Q6H PRN #10 tablet 11/06/19 11/09/19 Oxycodone HCl/Acetaminophen 1 - 2 each PO Q6H PRN #8 tablet 11/10/19 [Percocet 5-325 mg Tablet] Promethazine [Phenergan] 25 mg PO Q6H PRN #10 tab 04/25/20 Ondansetron Odt [Zofran] 4 mg TL Q6H PRN #10 tablet 11/13/19 - Allergies Allergies/Adverse Reactions: Allergies Allergy/AdvReac Type Severity Reaction Status Date / Time No Known Drug Allergies Allergy Verified 11/13/19 10:56 - Social History Does the pt smoke?: No Smoking Status: Current every day smoker Does the pt drink ETOH?: No Does the pt have substance abuse?: Yes Substance Use and Type: Marijuana - Immunizations Immunizations are current?: No Immunizations: Other immun not current - POLST Patient has POLST: No POLST Status: Full Code PD ED PE NORMAL - Vitals Vital signs reviewed: Yes - General General: Alert and oriented X 3, No acute distress, Well developed/nourished - HEENT HEENT: Atraumatic, Moist mucous membranes - Neck Neck: Supple, no meningeal sign, No JVD - Cardiac Cardiac: RRR, No murmur, No gallop, No rub - Respiratory Respiratory: No respiratory distress, Clear bilaterally - Abdomen Abdomen: Normal bowel sounds, Soft, Non distended. No: Non tender (tender w/o guarding mid epigastric to luq. ) - Back Back: No CVA TTP - Derm Derm: Normal color, Warm and dry, No rash - Extremities Extremities: No deformity, No edema, No calf tenderness / cord - Neuro Neuro: Alert and oriented X 3 Eye Opening: Spontaneous Motor: Obeys Commands Verbal: Oriented GCS Score: 15 - Psych Psych: Normal mood, Normal affect Results - Vitals Vitals: Vital Signs - 24 hr 11/13/19 11/13/19 10:56 12:04 Temperature 36.9 C 36.9 C Heart Rate 70 60 Respiratory 16 16 Rate Blood Pressure 138/103 H 153/93 H O2 Saturation 100 99 Oxygen O2 Source Room air - Labs Labs: Laboratory Tests 11/13/19 11/13/19 11:26 11:26 WBC 5.2 RBC 5.70 Hgb 15.8 Hct 46.4 MCV 81.4 MCH 27.7 MCHC 34.1 RDW 13.1 Plt Count 306 MPV 9.2 Neut # (Auto) 2.1 Lymph # (Auto) 2.2 [place] # (Auto) 0.6 Eos # (Auto) 0.1 Baso # (Auto) 0.1 Absolute Nucleated RBC 0.00 Nucleated RBC % 0.0 Sodium 134 L Potassium 3.3 L Chloride 94 L Carbon Dioxide 27 Anion Gap 13.0 BUN 25 H Creatinine 1.2 Estimated GFR (MDRD) 82 L Glucose 123 H Calcium 9.4 Total Bilirubin 0.9 AST 35 ALT 31 Alkaline Phosphatase 67 Total Protein 8.3 H Albumin 5.1 Globulin 3.2 Albumin/Globulin Ratio 1.6 Lipase 45 PD MEDICAL DECISION MAKING - ED course Complexity details: reviewed old records, reviewed results, re-evaluated patient, considered differential, d/w patient ED course: Pt presented with sx similar to his visit 2 days ago and earlier in the week. His labs were reassuring, mildly elevated BUN and mild hypokalemia were treated with IVF and potassium orally. His lipase was normal. His labs are not suggestive of abdominal infection, severe dehydration or starvation ketosis. He received benadryl and haldol here and had no more vomiting, but stated that he had persistent pain. He received 1mg of dilaudid w/ improvement. He was then able to tolerate a PO challenge and was feeling substantially better. He had no vomiting throughout the ER stay. He was not able to provide a urine sample but had no dysuria and had a normal UA 2 days ago. He was therefore discharged home with instructions to continue to avoid marijuana and to follow up w/ PCP within the next 1-2 weeks to discuss his chronic abdominal pain and to consider ref erral to a GI specialist. Return precautions discussed in detail. Departure - Departure Disposition: 01 Home, Self Care Clinical Impression: Cannabinoid hyperemesis syndrome, Cannabis abuse, Vomiting Condition: Good Record reviewed to determine appropriate education?: Yes Instructions: ED Diet Vomiting Diarrhea, ED Nausea Vomiting Prescriptions: Ondansetron Odt [Zofran] 4 mg TL Q6H PRN #10 tablet PRN Reason: Nausea / Vomiting Comments: Please continue to avoid cannabis/marijuana. Eat a light and easily digestible diet as discussed. Stay hydrated. If you have new or worsening symptoms, return to the ER. Please follow up with your primary provider in the next 1-2 weeks.
[2019-11-13] MEDS ORDERED: diphenhydrAMINE INJ 50 MG/ML VIAL IVP STA (11:22)
[2019-11-13] MEDS ORDERED: SODIUM CHLORIDE 0.9% 1,000 ML IV ONE (11:24)
[2019-11-13] MEDS ORDERED: HALOPERIDOL 5 MG/ML VIAL IVP ONE (11:24)
[2019-11-13 11:32] LABS: BASOPHILS # (AUTO) 0.1 10^3/uL (0.0-0.1); EOSINOPHILS # (AUTO) 0.1 10^3/uL (0.0-0.7); EOSINOPHILS % (AUTO) 2.7 %; HGB - HEMOGLOBIN 15.8 g/dL (14.0-18.0); LYMPHOCYTES # (AUTO) 2.2 10^3/uL (1.5-3.5); LYMPHOCYTES % (AUTO) 43.3 %; MEAN CORPUSCULAR HEMOGLOBIN 27.7 pg (27.0-31.0); MEAN CORPUSCULAR HGB CONC 34.1 g/dL (32.0-36.0); MEAN CORPUSCULAR VOLUME 81.4 fL (80.0-94.0); MEAN PLATELET VOLUME 9.2 fL (7.4-11.4); MONOCYTES # (AUTO) 0.6 10^3/uL (0.0-1.0); MONOCYTES % (AUTO) 11.4 %; NEUTROPHILS # (AUTO) 2.1 10^3/uL (1.5-6.6); NEUTROPHILS % (AUTO) 41.4 %; PLT - PLATELET COUNT 306 10^3/uL (130-450); RED CELL DISTRIBUTION WIDTH 13.1 % (12.0-15.0); WHITE BLOOD COUNT 5.2 x10^3/uL (4.8-10.8)
[2019-11-13 11:44] LABS: ALBUMIN 5.1 g/dL (3.2-5.5); ALBUMIN/GLOBULIN RATIO 1.6 (1.0-2.2); BILIRUBIN,TOTAL 0.9 mg/dL (0.2-1.0); CALCIUM 9.4 mg/dL (8.5-10.3); CREATININE 1.2 mg/dL (0.6-1.2); TOTAL PROTEIN 8.3 g/dL (6.7-8.2)
[2019-11-13] MEDS ORDERED: HYDROmorphone 1 MG/ML CARPUJECT IVP STA (12:31)
[2019-11-13] MEDS ORDERED: POTASSIUM CHLORIDE 20 MEQ/15 ML UDC PO STA (12:32)
[2019-11-13 13:28] VITALS: BP 124/91
== END 2019-11-13 13:27 | disposition home or self-care (01) ==
LOC: EDUNIT# → ED 10:52
DX: F12.188 Cannabis abuse with other cannabis-induced disorder (principal); R11.2 Nausea with vomiting, unspecified; I10 Essential (primary) hypertension; F17.200 Nicotine dependence, unspecified, uncomplicated
CPT/HCPCS: 36415; 80053; 83690; 85025; 96361; 96374; 99283; 99284; A9270; J1170; J1200

== ENCOUNTER 2019-11-14 16:20 | Outpatient (CLI) | payer MEDICAID | END 2019-11-14 23:59 | disposition critical access hospital (66) | LOC: EMS 16:20 | PROVIDERS: ATTEND Surgery | DX: R11.10 Vomiting, unspecified (principal); R10.10 Upper abdominal pain, unspecified | CPT/HCPCS: A0425; A0429 ==

== ENCOUNTER 2019-11-14 17:05 | Emergency (ER) | payer MEDICAID ==
[2019-11-14] MEDS ORDERED: SODIUM CHLORIDE 0.9% 1,000 ML IV ONE (17:21)
[2019-11-14] MEDS ORDERED: KETOROLAC 30 MG/ML VIAL IVP STA (17:23)
--- NOTE | 2019-11-14 17:37 | ED Physician Documentation ---
PD HPI ABD PAIN - Stated complaint Stated Complaint: N/V - Chief complaint Chief Complaint: Abd Pain - History obtained from History obtained from: Patient (38 yo M w/ hx/o cannabis hyperemesis and pancreatitis presents with recurrent abdominal pain and n/v. The abdominal pain is located mid epigastric and left upper quadranat which is similar to his typical pain. I saw him for same symptoms yesterday at which time he had a reassuring workup and felt better after IVF, haldol and pain control. He states he was fine all night and today until the afternoon when he went to the store to buy water at which time he started vomiting again. He adamantly denies marijuana use, states last use was 3 days ago. No recent etoh, last use "[facility] [place] Denies fever/chills, cough or URI sx, diarrhea, dysuria or other urinary sx. He did not take any medication at home for this despite being prescribed antiemetics. Pt asks "can't I just stay overnight until this gets under control?") Review of Systems Eyes: reports: Reviewed and negative Ears: reports: Reviewed and negative Nose: reports: Reviewed and negative Throat: reports: Reviewed and negative Cardiac: reports: Reviewed and negative Respiratory: reports: Reviewed and negative GI: reports: Abdominal Pain, Nausea, Vomiting. denies: Abdominal Swelling, Constipation, Diarrhea, Hematemesis, Bloody / black stool : reports: Reviewed and negative Skin: reports: Reviewed and negative Neurologic: reports: Reviewed and negative Psychiatric: reports: Reviewed and negative Endocrine: reports: Reviewed and negative PD PAST MEDICAL HISTORY - Past Medical History Past Medical History: Yes Cardiovascular: Hypertension, Deep vein thrombosis Respiratory: Asthma Neuro: None Endocrine/Autoimmune: None GI: GERD, Pancreatitis : None HEENT: None Psych: Depression, Anxiety, Panic attacks, Other Musculoskeletal: None Derm: None - Past Surgical History Past Surgical History: No Ortho: Other - Present Medications Home Medications: Ambulatory Orders Medication Instructions Recorded Confirmed Acetaminophen [Tylenol Extra 500 mg PO DAILY PRN 10/05/19 11/14/19 Strength] Calcium Carbonate [Tums (Calcium 500 mg PO DAILY PRN 10/05/19 11/14/19 Carbonate 500mg)] Nicotine 14 mg Patch [Nicoderm] 1 patch TOP DAILY #7 patch 10/06/19 11/14/19 Ondansetron Odt [Zofran] 4 mg TL Q6H PRN #10 tablet 11/13/19 11/14/19 Dicyclomine [Bentyl] 10 mg PO QID #20 capsule 11/14/19 LORazepam [Ativan] 0.5 mg PO BID PRN 5 Days #10 tablet 11/14/19 Promethazine [Phenergan] 25 mg PO Q6H PRN #10 tab 11/14/19 - Allergies Allergies/Adverse Reactions: Allergies Allergy/AdvReac Type Severity Reaction Status Date / Time No Known Drug Allergies Allergy Verified 11/14/19 17:09 - Social History Does the pt smoke?: No Smoking Status: Current every day smoker Does the pt drink ETOH?: No Does the pt have substance abuse?: Yes Substance Use and Type: Marijuana - Immunizations Immunizations are current?: No Immunizations: Other immun not current - POLST Patient has POLST: No POLST Status: Full Code PD ED PE NORMAL - Vitals Vital signs reviewed: Yes - General General: Alert and oriented X 3, No acute distress, Well developed/nourished - HEENT HEENT: Moist mucous membranes - Neck Neck: Supple, no meningeal sign, No adenopathy, No JVD - Cardiac Cardiac: RRR, No murmur, No gallop - Respiratory Respiratory: No respiratory distress, Clear bilaterally - Abdomen Abdomen: Normal bowel sounds, Non tender, Non distended - Back Back: No CVA TTP, No spinal TTP - Derm Derm: Normal color, Warm and dry, No rash - Extremities Extremities: No deformity, No tenderness to palpate, Normal ROM s pain, No edema, No calf tenderness / cord - Neuro Neuro: Alert and oriented X 3 Eye Opening: Spontaneous Motor: Obeys Commands Verbal: Oriented GCS Score: 15 - Psych Psych: Normal mood, Normal affect Results - Vitals Vitals: Vital Signs - 24 hr 11/14/19 11/14/19 11/14/19 17:09 17:16 20:49 Temperature 37.8 C H Heart Rate 99 105 H 86 Respiratory 22 20 18 Rate Blood Pressure 137/116 H 174/140 H 156/97 H O2 Saturation 97 97 98 Oxygen O2 Source Room air - Labs Labs: Laboratory Tests 11/14/19 11/14/19 17:33 17:33 WBC 4.9 RBC 5.68 Hgb 15.7 Hct 46.1 MCV 81.2 MCH 27.6 MCHC 34.1 RDW 12.8 Plt Count 311 MPV 9.4 Neut # (Auto) 2.6 Lymph # (Auto) 1.6 [place] # (Auto) 0.5 Eos # (Auto) 0.2 Baso # (Auto) 0.1 Absolute Nucleated RBC 0.00 Nucleated RBC % 0.0 Sodium 135 Potassium 3.0 L Chloride 95 L Carbon Dioxide 30 Anion Gap 10.0 BUN 21 H Creatinine 1.1 Estimated GFR (MDRD) 91 Glucose 127 H Calcium 9.7 Total Bilirubin 1.0 AST 89 H ALT 40 Alkaline Phosphatase 67 Total Protein 8.6 H Albumin 5.4 Globulin 3.2 Albumin/Globulin Ratio 1.7 Lipase 104 H PD MEDICAL DECISION MAKING - ED course Complexity details: reviewed old records, reviewed results, re-evaluated patient, considered differential, d/w patient ED course: Javi presents for the 7th time in 8 days for n/v and abdominal pain. The differential includes acute/chronic pancreatitis, cannabis hyperemesis, gastroparesis, and cyclic vomiting. He has a mild increase in his lipase though he periodically has this. LFTs essentially normal. No leukocytosis. UA not repeated as it was done yesterday and he has no dysuria or other symptoms of a UTI. He has a hx/o cannabis hyperemesis and this is likely still contributing. He had a reassuring workup yesterday and labs today again are fairly reassuring. He received IVF in the ER as well as potassium replacement. He received haldol and toradol and has no further emesis in the ED but continued to complain of abdominal pain though was noted to be sleeping each time I re-evaluated him. After much discussion, he was given 4mg of morphine. Given failure of outpatient zofran, we will try phenergan and bentyl as well as low dose temporary lorazepam for intractable vomiting. Patient cautioned at length about potential side effects. He was instructed at length to abstain from marijuana and alcohol. He was instructed to follow up with his PCP and GI specialist within the next week for this chronic/recurrent problem. Departure - Departure Disposition: 01 Home, Self Care Clinical Impression: Cannabinoid hyperemesis syndrome Pancreatitis Qualifiers: Pancreatitis type: unspecified pancreatitis type Acute pancreatitis complication: unspecified Condition: Good Instructions: Pancreatitis Chronic Dc Prescriptions: Dicyclomine [Bentyl] 10 mg PO QID #20 capsule LORazepam [Ativan] 0.5 mg PO BID PRN 5 Days #10 tablet PRN Reason: Nausea / Vomiting Promethazine [Phenergan] 25 mg PO Q6H PRN #10 tab PRN Reason: Nausea / Vomiting Comments: You presented tonight for intractable nausea and vomiting. This is likely due to your marijuana use and chronic pancreatitis. I have prescribed you medication to help with the nausea and abdominal cramping. I have prescribed an medication called Lorazepam which is often used for anxiety but also can be helpful with intractable vomiting. This medication can cause you to be sleepy and can cause respiratory suppression. If taken with alcohol or other drugs it can cause you to stop breathing. It is important not to take this medication inappropriately or with alcohol or other drugs. This medication is given short-term and is not meant for long-term use. It is extremely important you to continue to abstain from alcohol and marijuana. I recommend a clear liquid diet until your symptoms improve, and sip on small amounts of fluids frequently. It is also very important that you follow up with your primary doctor and GI specialist for this problem. You have been in the ER 7 times in the past 8 days. It is appropriate to return to the ER if your pain is significantly worse than normal or you develop a fever or you are persistently unable to tolerate oral fluids despite taking the medication prescribed, otherwise these problems can be managed at home with the care noted above. Discharge Date/Time: 11/14/19 20:53
[2019-11-14 17:41] LABS: BASOPHILS # (AUTO) 0.1 10^3/uL (0.0-0.1); BASOPHILS % (AUTO) 1.2 %; EOSINOPHILS # (AUTO) 0.2 10^3/uL (0.0-0.7); EOSINOPHILS % (AUTO) 3.5 %; HGB - HEMOGLOBIN 15.7 g/dL (14.0-18.0); LYMPHOCYTES # (AUTO) 1.6 10^3/uL (1.5-3.5); LYMPHOCYTES % (AUTO) 33.3 %; MEAN CORPUSCULAR HEMOGLOBIN 27.6 pg (27.0-31.0); MEAN CORPUSCULAR HGB CONC 34.1 g/dL (32.0-36.0); MEAN CORPUSCULAR VOLUME 81.2 fL (80.0-94.0); MEAN PLATELET VOLUME 9.4 fL (7.4-11.4); MONOCYTES # (AUTO) 0.5 10^3/uL (0.0-1.0); MONOCYTES % (AUTO) 9.4 %; NEUTROPHILS # (AUTO) 2.6 10^3/uL (1.5-6.6); NEUTROPHILS % (AUTO) 52.4 %; PLT - PLATELET COUNT 311 10^3/uL (130-450); RED BLOOD COUNT 5.68 10^6/uL (4.70-6.10); RED CELL DISTRIBUTION WIDTH 12.8 % (12.0-15.0); WHITE BLOOD COUNT 4.9 x10^3/uL (4.8-10.8)
[2019-11-14] MEDS ORDERED: HALOPERIDOL 5 MG/ML VIAL IVP ONE (17:41)
[2019-11-14 17:55] LABS: ALBUMIN 5.4 g/dL (3.2-5.5); ALBUMIN/GLOBULIN RATIO 1.7 (1.0-2.2); CALCIUM 9.7 mg/dL (8.5-10.3); CREATININE 1.1 mg/dL (0.6-1.2); TOTAL PROTEIN 8.6 g/dL (6.7-8.2)
[2019-11-14] MEDS ORDERED: NS W/20 MEQ KCL 1,000 ML IV STA (18:16)
[2019-11-14] MEDS ORDERED: POTASSIUM CHLORIDE 20 MEQ/15 ML UDC PO STA (18:20)
[2019-11-14] MEDS ORDERED: HALOPERIDOL 5 MG/ML VIAL IM STA (19:38)
[2019-11-14] MEDS ORDERED: MORPHINE 2 MG/ML CARPUJECT IVP STA (20:16)
[2019-11-14 20:51] VITALS: BP 156/97
== END 2019-11-14 20:53 | disposition home or self-care (01) ==
LOC: EDUNIT# → ED 17:05
DX: K85.90 Acute pancreatitis without necrosis or infection, unspecified (principal); I10 Essential (primary) hypertension; F17.200 Nicotine dependence, unspecified, uncomplicated
CPT/HCPCS: 36415; 80053; 83690; 85025; 96361; 96365; 96366; 96375; 96376; 99284; A9270

== ENCOUNTER 2019-11-18 00:16 | Outpatient (CLI) | payer MEDICAID | END 2019-11-18 00:17 | disposition critical access hospital (66) | LOC: EMS 00:16 | PROVIDERS: ATTEND Surgery | DX: R10.9 Unspecified abdominal pain (principal); R11.10 Vomiting, unspecified | CPT/HCPCS: A0425; A0429 ==

== ENCOUNTER 2019-11-18 00:43 | Emergency (ER) | payer MEDICAID ==
[2019-11-18] MEDS ORDERED: SODIUM CHLORIDE 0.9% 1,000 ML IV ONE ×3 (01:10→06:21)
[2019-11-18] MEDS ORDERED: HALOPERIDOL 5 MG/ML VIAL IVP ONE (01:10)
--- NOTE | 2019-11-18 01:19 | ED Physician Documentation ---
PD HPI NVD - Stated complaint Stated Complaint: ABD PAIN, N/V - Chief complaint Chief Complaint: Abd Pain - History obtained from History obtained from: Patient, EMS - History of Present Illness Timing - onset: Today Timing - duration: Hours Timing - details: Gradual onset, Still present Associated symptoms: Abdominal pain Contributing factors: Other (hx/o pancreatitis and cannabis hyperemesis) Improved by: Vomiting Worsened by: Position, Palpation Similar symptoms before: Diagnosis Recently seen: Emergency Dept (Pancreatitis and cannabis hyperemesis.) - Additonal information Additional information: 38-year-old male with a history of pancreatitis and cannabis hyperemesis has his eighth visit to the emergency department in the past 12 days. He has mostly had luck with the use of Haldol and Toradol for control of his pain.Of note the patient has had luck when he has been in the hospital for more than 1 day and this usually results in a longer interval between his next visit. Review of Systems Constitutional: denies: Fever, Chills, Myalgias Eyes: denies: Decreased vision Ears: denies: Ear pain Nose: denies: Congestion, Reviewed and negative Throat: denies: Sore throat Cardiac: denies: Chest pain / pressure, Palpitations Respiratory: denies: Dyspnea, Cough GI: reports: Abdominal Pain, Nausea, Vomiting : denies: Dysuria, Frequency Skin: denies: Rash Musculoskeletal: denies: Neck pain, Back pain, Extremity pain Neurologic: denies: Generalized weakness, Focal weakness, Numbness, Difficulty speaking PD PAST MEDICAL HISTORY - Past Medical History Cardiovascular: Hypertension, Deep vein thrombosis Respiratory: Asthma Neuro: None Endocrine/Autoimmune: None GI: GERD, Pancreatitis : None HEENT: None Psych: Depression, Anxiety, Panic attacks, Other Musculoskeletal: None Derm: None - Past Surgical History Past Surgical History: No Ortho: Other - Present Medications Home Medications: Ambulatory Orders Medication Instructions Recorded Confirmed Dicyclomine [Bentyl] 10 mg PO QID #20 capsule 11/14/19 LORazepam [Ativan] 0.5 mg PO BID PRN 5 Days #10 tablet 11/14/19 Promethazine [Phenergan] 25 mg PO Q6H PRN #10 tab 11/14/19 haloperidoL [Haldol] 2 mg PO Q8HR PRN #10 tablet 11/18/19 - Allergies Allergies/Adverse Reactions: Allergies Allergy/AdvReac Type Severity Reaction Status Date / Time No Known Drug Allergies Allergy Verified 11/14/19 17:09 - Social History Does the pt smoke?: No Smoking Status: Current every day smoker Does the pt drink ETOH?: No Does the pt have substance abuse?: Yes - Immunizations Immunizations are current?: No Immunizations: Other immun not current - POLST Patient has POLST: No POLST Status: Full Code PD ED PE NORMAL - Vitals Vital signs reviewed: Yes (hypertensive ) - General General: Alert and oriented X 3, Well developed/nourished, Other (still operator brandy tone and flat affect) - HEENT HEENT: Atraumatic, PERRL, EOMI - Neck Neck: Supple, no meningeal sign, No bony TTP - Cardiac Cardiac: RRR, No murmur - Respiratory Respiratory: No respiratory distress, Clear bilaterally - Abdomen Abdomen: Normal bowel sounds, Soft, Non distended, No organomegaly, Other (epigastric and LUQ pain to palpation) - Back Back: No CVA TTP, No spinal TTP - Derm Derm: Normal color, Warm and dry, No rash - Extremities Extremities: No deformity, No edema, No calf tenderness / cord - Neuro Neuro: Alert and oriented X 3, 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54 Hgb 15.4 Hct 44.7 MCV 80.7 MCH 27.8 MCHC 34.5 RDW 12.8 Plt Count 318 MPV 9.1 Neut # (Auto) 3.4 Lymph # (Auto) 1.8 [place] # (Auto) 0.8 Eos # (Auto) 0.1 Baso # (Auto) 0.1 Absolute Nucleated RBC 0.00 Nucleated RBC % 0.0 Sodium 132 L Potassium 2.7 L Chloride 92 L Carbon Dioxide 25 Anion Gap 15.0 H BUN 31 H Creatinine 1.3 H Estimated GFR (MDRD) 75 L Glucose 111 H Calcium 9.5 Total Bilirubin 0.9 AST 66 H ALT 45 Alkaline Phosphatase 61 Total Creatine Kinase CK-MB (CK-2) 8.2 H Total Protein 8.2 Albumin 5.1 Globulin 3.1 Albumin/Globulin Ratio 1.6 Lipase 47 Ethyl Alcohol < 5.0 11/18/19 01:25 WBC RBC Hgb Hct MCV MCH MCHC RDW Plt Count MPV Neut # (Auto) Lymph # (Auto) [place] # (Auto) Eos # (Auto) Baso # (Auto) Absolute Nucleated RBC Nucleated RBC % Sodium Potassium Chloride Carbon Dioxide Anion Gap BUN Creatinine Estimated GFR (MDRD) Glucose Calcium Total Bilirubin AST ALT Alkaline Phosphatase Total Creatine Kinase 1758 H* CK-MB (CK-2) Total Protein Albumin Globulin Albumin/Globulin Ratio Lipase Ethyl Alcohol PD MEDICAL DECISION MAKING - ED course Complexity details: reviewed old records, reviewed results, re-evaluated patient, considered differential, d/w patient ED course: 38-year-old male with a history of cannabis hyperemesis indicates he last used 2 to 3 days ago and is having issues again with abdominal pain nausea and vomiting. He is treated in the emergency department with intravenous saline Haldol 5 mg intravenously and Toradol 30 mg intravenously. With these 2 medications his symptoms are mostly controlled. He is hypokalemic and administered both oral and intravenous potassium as well as saline. He does have evidence of acute kidney injury although he has recovered from this level multiple times. I did discuss with the patient potential for admission as this is his eighth visit in 12 days however he improved and was discharged to home. We will try a prescription for him today of Haldol 2 mg every 8 as needed for vomiting. I have again encouraged the patient to discontinue the use of cannabis entirely. He nods his head in agreement. Departure - Departure Disposition: 01 Home, Self Care Clinical Impression: Cyclical vomiting, Hypokalemia, Cannabinoid hyperemesis syndrome, Dehydration, Acute kidney injury Condition: Stable Instructions: ED Dehydration, ED Nausea Vomiting Follow-Up: CLARA LOGAN MD [Provider Admit Priv/Credential] - Prescriptions: haloperidoL [Haldol] 2 mg PO Q8HR PRN #10 tablet PRN Reason: vomiting
[2019-11-18] MEDS ORDERED: KETOROLAC 30 MG/ML VIAL IVP STA (01:20)
[2019-11-18 01:31] LABS: BASOPHILS # (AUTO) 0.1 10^3/uL (0.0-0.1); BASOPHILS % (AUTO) 1.1 %; EOSINOPHILS # (AUTO) 0.1 10^3/uL (0.0-0.7); EOSINOPHILS % (AUTO) 1.8 %; HGB - HEMOGLOBIN 15.4 g/dL (14.0-18.0); LYMPHOCYTES # (AUTO) 1.8 10^3/uL (1.5-3.5); LYMPHOCYTES % (AUTO) 28.1 %; MEAN CORPUSCULAR HEMOGLOBIN 27.8 pg (27.0-31.0); MEAN CORPUSCULAR HGB CONC 34.5 g/dL (32.0-36.0); MEAN CORPUSCULAR VOLUME 80.7 fL (80.0-94.0); MEAN PLATELET VOLUME 9.1 fL (7.4-11.4); MONOCYTES # (AUTO) 0.8 10^3/uL (0.0-1.0); MONOCYTES % (AUTO) 13.5 %; NEUTROPHILS # (AUTO) 3.4 10^3/uL (1.5-6.6); NEUTROPHILS % (AUTO) 55.3 %; PLT - PLATELET COUNT 318 10^3/uL (130-450); RED BLOOD COUNT 5.54 10^6/uL (4.70-6.10); RED CELL DISTRIBUTION WIDTH 12.8 % (12.0-15.0); WHITE BLOOD COUNT 6.2 x10^3/uL (4.8-10.8)
[2019-11-18 01:44] LABS: ALBUMIN 5.1 g/dL (3.2-5.5); ALBUMIN/GLOBULIN RATIO 1.6 (1.0-2.2); ALKALINE PHOSPHATASE 61 IU/L (42-121); ALT ALANINE AMINOTRANSFERASE 45 IU/L (10-60); AST ASPARTATE AMINOTRANSFERASE 66 IU/L (10-42); BILIRUBIN,TOTAL 0.9 mg/dL (0.2-1.0); BUN - BLOOD UREA NITROGEN 31 mg/dL (6-20); CALCIUM 9.5 mg/dL (8.5-10.3); CARBON DIOXIDE - CO2 25 mmol/L (21-32); CHLORIDE 92 mmol/L (101-111); CREATININE 1.3 mg/dL (0.6-1.2); GLUCOSE 111 mg/dL (70-100); LIPASE 47 U/L (22-51); SODIUM 132 mmol/L (135-145); TOTAL PROTEIN 8.2 g/dL (6.7-8.2)
[2019-11-18] MEDS ORDERED: POTASSIUM CHLORIDE 20 MEQ TABLET PO STA (02:46)
[2019-11-18] MEDS: POTASSIUM CHLOR 10 MEQ/100 ML 10 MEQ/100 ML BAG IV SCH ×3 (02:58→05:21)
[2019-11-18 07:22] VITALS: BP 104/79
[2019-11-18 07:25] LABS: MUDS CUTOFF CONCENTRATIONS CUTOFF CONC BELOW:
[2019-11-18 07:27] LABS: GLUCOSE, URINE (UA) NEGATIVE (NEGATIVE); KETONES,URINE (UA) NEGATIVE (NEGATIVE); LEUKOCYTE ESTERASE, URINE NEGATIVE (NEGATIVE); NITRITE,URINE NEGATIVE (NEGATIVE); OCCULT BLOOD,URINE NEGATIVE (NEGATIVE); PH,URINE 5.5 PH (5.0-7.5); PROTEIN,URINE 30 mg/dL (NEGATIVE); UROBILINOGEN,URINE 0.2 (NORMAL) E.U./dL (NORMAL)
[2019-11-18 07:32] LABS: BILIRUBIN,URINE NEGATIVE (NEGATIVE); CLARITY,URINE CLEAR (CLEAR); ICTOTEST,URINE NEGATIVE
[2019-11-18 07:47] LABS: AMORPHOUS SEDIMENT,UR Few /LPF; BACTERIA,URINE Moderate /HPF (None Seen); MUCUS,URINE Marked Strands; RBC,URINE 0-5 /HPF (0-5); SQUAMOUS EPITHELIAL CELL,UR FEW Squamous (<= Few)
[2019-11-18 07:48] LABS: AMPHETAMINE SCREEN,URINE NEGATIVE (NEGATIVE); BENZODIAZEPINES SCREEN, URINE POSITIVE (NEGATIVE); COCAINE SCREEN URINE NEGATIVE (NEGATIVE); METHADONE SCREEN, URINE NEGATIVE (NEGATIVE); METHAMPHETAMINES SCREEN, URINE NEGATIVE (NEGATIVE); OPIATE SCREEN, URINE NEGATIVE (NEGATIVE); OXYCODONE SCREEN, URINE NEGATIVE (NEGATIVE); PROPOXYPHENE SCREEN, URINE NEGATIVE (NEGATIVE); TRICYCLIC ANTIDEPRESSANT,URINE NEGATIVE (NEGATIVE)
== END 2019-11-18 07:22 | disposition home or self-care (01) ==
LOC: EDUNIT# → ED 00:43
DX: R11.15 Cyclical vomiting syndrome unrelated to migraine (principal); E86.0 Dehydration; E87.6 Hypokalemia; N17.9 Acute kidney failure, unspecified; I10 Essential (primary) hypertension; F17.200 Nicotine dependence, unspecified, uncomplicated
CPT/HCPCS: 36415; 80053; 80306; 80320; 81001; 82550; 82553; 83690; 85025; 87086; 96361; 96365; 96366; 96375; 99284; A9270; 81003

== ENCOUNTER 2019-12-20 16:24 | Outpatient (CLI) | payer MEDICAID | END 2019-12-20 16:25 | disposition critical access hospital (66) | LOC: EMS 16:24 | PROVIDERS: ATTEND Surgery | DX: R10.9 Unspecified abdominal pain (principal); R11.2 Nausea with vomiting, unspecified | CPT/HCPCS: A0425; A0427 ==

== ENCOUNTER 2019-12-20 16:56 | Emergency (ER) | payer MEDICAID ==
--- NOTE | 2019-12-20 17:18 | ED Physician Documentation ---
History of Present Illness - Stated complaint Stated Complaint: AB PX - Chief complaint Chief Complaint: Abd Pain - History obtained from History obtained from: Patient - History of Present Illness Timing: Prior to arrival, Other (3 days) Pain level max: 9 Pain level now: 9 Quality: sharp Radiates to: does not - Treatment prior to arrival Treatment prior to arrival: fentanyl enroute - Additonal information Additional information: 39-year-old male presents to the emergency department through the EMS system for chief complaint of 3 to 4 days of upper abdominal pain and vomiting. Patient reports that prior to when the vomiting began he did drink 3 beers. Patient admits to a history of pancreatitis. Patient denies any fevers melena or hematochezia. He has no cough chest pain or shortness of breath. Patient also has a history of cannabis hyperemesis syndrome.He reports that he has been smoking pot the last 2 to 3 days to try and stop vomiting. Review of Systems Constitutional: denies: Fever, Chills, Myalgias Cardiac: denies: Chest pain / pressure, Palpitations Respiratory: denies: Dyspnea, Cough GI: reports: Abdominal Pain, Nausea, Vomiting : denies: Dysuria, Frequency PD PAST MEDICAL HISTORY - Past Medical History Cardiovascular: Hypertension, Deep vein thrombosis Respiratory: Asthma Neuro: None Endocrine/Autoimmune: None GI: GERD, Pancreatitis : None HEENT: None Psych: Depression, Anxiety, Panic attacks, Other Musculoskeletal: None Derm: None - Past Surgical History Past Surgical History: No Ortho: Other - Present Medications Home Medications: Ambulatory Orders Medication Instructions Recorded Confirmed Dicyclomine [Bentyl] 10 mg PO QID #20 capsule 11/14/19 LORazepam [Ativan] 0.5 mg PO BID PRN 5 Days #10 tablet 11/14/19 Promethazine [Phenergan] 25 mg PO Q6H PRN #10 tab 11/14/19 haloperidoL [Haldol] 2 mg PO Q8HR PRN #10 tablet 11/18/19 - Allergies Allergies/Adverse Reactions: Allergies Allergy/AdvReac Type Severity Reaction Status Date / Time No Known Drug Allergies Allergy Verified 12/20/19 17:08 - Social History Does the pt smoke?: No Smoking Status: Current every day smoker Does the pt drink ETOH?: No Does the pt have substance abuse?: Yes - Immunizations Immunizations are current?: No Immunizations: Other immun not current - POLST Patient has POLST: No POLST Status: Full Code PD ED PE NORMAL - General General: Alert and oriented X 3, No acute distress, Well developed/nourished - HEENT HEENT: Atraumatic - Neck Neck: Supple, no meningeal sign, No adenopathy - Cardiac Cardiac: RRR, No murmur - Respiratory Respiratory: No respiratory distress - Abdomen Abdomen: Normal bowel sounds, Soft, Other (mildly tender in the upper abdomen; no rebound or guarding. negating [place]) Results - Vitals Vitals: Vital Signs - 24 hr 12/20/19 12/20/19 16:57 17:17 Temperature 37.4 C Heart Rate 88 90 Respiratory 20 14 Rate Blood Pressure 137/98 H 138/105 H O2 Saturation 97 94 Oxygen O2 Source Room air - Labs Labs: Laboratory Tests 12/20/19 12/20/19 17:34 17:34 WBC 5.2 RBC 6.07 Hgb 16.9 Hct 50.4 MCV 83.0 MCH 27.8 MCHC 33.5 RDW 16.3 H Plt Count 304 MPV 8.8 Neut # (Auto) 2.9 Lymph # (Auto) 1.5 [place] # (Auto) 0.6 Eos # (Auto) 0.1 Baso # (Auto) 0.0 Absolute Nucleated RBC 0.00 Nucleated RBC % 0.0 Sodium 137 Potassium 3.5 Chloride 96 L Carbon Dioxide 27 Anion Gap 14.0 H BUN 19 Creatinine 1.4 H Estimated GFR (MDRD) 68 L Glucose 120 H Calcium 10.3 Total Bilirubin 1.2 H AST 22 ALT 24 Alkaline Phosphatase 82 Total Protein 9.3 H Albumin 5.2 Globulin 4.1 Albumin/Globulin Ratio 1.3 Lipase 34 PD MEDICAL DECISION MAKING - ED course Complexity details: reviewed results, re-evaluated patient, d/w patient ED course: 39-year-old male presents to the emergency department with 3 days of nausea and vomiting. He does have a history of pancreatitis as well as hyperemesis syndrome. Patient has been drinking in the previous 3 days as well as smoking pot in order to try and stop vomiting. - labs reviewed adn without significant abnormality. no e/o pancreatitis - pt received 1 liter IVF and 2.5 mg haldol. Shortly after pt was reevaluated and was markedly improved and tolerating po. His vital signs are stable and he wishes toe be dc home. he appears stable to be dc Departure - Departure Disposition: 01 Home, Self Care Clinical Impression: Vomiting alone Condition: Stable Instructions: ED Nausea Vomiting Follow-Up: CLARA LOGAN MD [Primary Care Provider] - Within 1 week Comments: Javi I am glad that you feel better. It is important to abstain from alcohol with your history of pancreatitis. Often times smoking pot to excess can cause uncontrolled vomiting as well. Abstain if you are able. Return to the emergency department for suddenly severe belly pain uncontrolled vomiting or fevers.
[2019-12-20] MEDS ORDERED: SODIUM CHLORIDE 0.9% 1,000 ML IV STA (17:20)
[2019-12-20] MEDS ORDERED: FAMOTIDINE 20 MG/2 ML SYRINGE IVP STA (17:20)
[2019-12-20] MEDS ORDERED: HYDROmorphone 1 MG/ML CARPUJECT IVP STA (17:20)
[2019-12-20 17:43] LABS: BASOPHILS % (AUTO) 0.8 %; EOSINOPHILS # (AUTO) 0.1 10^3/uL (0.0-0.7); EOSINOPHILS % (AUTO) 1.9 %; HGB - HEMOGLOBIN 16.9 g/dL (14.0-18.0); LYMPHOCYTES # (AUTO) 1.5 10^3/uL (1.5-3.5); MEAN CORPUSCULAR HEMOGLOBIN 27.8 pg (27.0-31.0); MEAN CORPUSCULAR HGB CONC 33.5 g/dL (32.0-36.0); MEAN PLATELET VOLUME 8.8 fL (7.4-11.4); MONOCYTES # (AUTO) 0.6 10^3/uL (0.0-1.0); MONOCYTES % (AUTO) 11.4 %; NEUTROPHILS # (AUTO) 2.9 10^3/uL (1.5-6.6); NEUTROPHILS % (AUTO) 56.5 %; PLT - PLATELET COUNT 304 10^3/uL (130-450); RED BLOOD COUNT 6.07 10^6/uL (4.70-6.10); RED CELL DISTRIBUTION WIDTH 16.3 % (12.0-15.0); WHITE BLOOD COUNT 5.2 x10^3/uL (4.8-10.8)
[2019-12-20 18:03] LABS: ALBUMIN 5.2 g/dL (3.2-5.5); ALBUMIN/GLOBULIN RATIO 1.3 (1.0-2.2); BILIRUBIN,TOTAL 1.2 mg/dL (0.2-1.0); CALCIUM 10.3 mg/dL (8.5-10.3); CREATININE 1.4 mg/dL (0.6-1.2); TOTAL PROTEIN 9.3 g/dL (6.7-8.2)
[2019-12-20] MEDS ORDERED: HALOPERIDOL 5 MG/ML VIAL IVP ONE (18:22)
[2019-12-20 19:20] VITALS: BP 143/95
== END 2019-12-20 19:20 | disposition home or self-care (01) ==
LOC: EDUNIT# → ED 16:56
DX: R11.2 Nausea with vomiting, unspecified (principal); R10.10 Upper abdominal pain, unspecified; Z87.19 Personal history of other diseases of the digestive system; I10 Essential (primary) hypertension
CPT/HCPCS: 36415; 80053; 83690; 85025; 96361; 96374; 96375; 99283; 99284; J1170

== ENCOUNTER 2019-12-22 17:27 | Outpatient (CLI) | payer MEDICAID | END 2019-12-22 23:59 | disposition critical access hospital (66) | LOC: EMS 17:27 | PROVIDERS: ATTEND Surgery | DX: R10.12 Left upper quadrant pain (principal); R11.2 Nausea with vomiting, unspecified | CPT/HCPCS: A0425; A0427 ==

== ENCOUNTER 2019-12-22 17:59 | Emergency (ER) | payer MEDICAID ==
[2019-12-22] MEDS ORDERED: SODIUM CHLORIDE 0.9% 1,000 ML IV STA (18:03)
[2019-12-22] MEDS ORDERED: HALOPERIDOL 5 MG/ML VIAL IVP ONE (18:03)
--- NOTE | 2019-12-22 18:09 | ED Physician Documentation ---
PD HPI ABD PAIN - Stated complaint Stated Complaint: ABD PX - Chief complaint Chief Complaint: Abd Pain - History obtained from History obtained from: Patient - History of Present Illness Timing - onset: Other (39-year-old gentleman with chronic recurrent abdominal pain, some alcoholic gastritis component versus cannabinoid hyperemesis. Previous work-ups have been negative. He has been in pain now for 6 days and admits to alcohol use a few days ago and ongoing marijuana use despite knowing that that is the cause of his pain. He is been vomiting 2. Pain is in the upper abdomen, sharp and burning similar to prior exacerbations.) Review of Systems Ten Systems: 10 systems reviewed and negative Constitutional: denies: Fever, Chills Cardiac: denies: Chest pain / pressure, Palpitations Respiratory: denies: Dyspnea, Cough PD PAST MEDICAL HISTORY - Past Medical History Cardiovascular: Hypertension, Deep vein thrombosis Respiratory: Asthma Neuro: None Endocrine/Autoimmune: None GI: GERD, Pancreatitis : None HEENT: None Psych: Depression, Anxiety, Panic attacks, Other Musculoskeletal: None Derm: None - Past Surgical History Past Surgical History: No Ortho: Other - Present Medications Home Medications: Ambulatory Orders Medication Instructions Recorded Confirmed Dicyclomine [Bentyl] 10 mg PO QID #20 capsule 11/14/19 LORazepam [Ativan] 0.5 mg PO BID PRN 5 Days #10 tablet 11/14/19 Promethazine [Phenergan] 25 mg PO Q6H PRN #10 tab 11/14/19 haloperidoL [Haldol] 2 mg PO Q8HR PRN #10 tablet 11/18/19 Promethazine [Phenergan] 25 mg PO Q6H PRN #10 tab 12/22/19 - Allergies Allergies/Adverse Reactions: Allergies Allergy/AdvReac Type Severity Reaction Status Date / Time No Known Drug Allergies Allergy Verified 12/22/19 18:02 - Social History Does the pt smoke?: No Smoking Status: Current every day smoker Does the pt drink ETOH?: No Does the pt have substance abuse?: Yes - Immunizations Immunizations are current?: No Immunizations: Other immun not current - POLST Patient has POLST: No POLST Status: Full Code PD ED PE NORMAL - Vitals Vital signs reviewed: Yes - General General: Alert and oriented X 3, No acute distress - Abdomen Abdomen: Normal bowel sounds, Soft, Non tender - Neuro Neuro: Alert and oriented X 3, Normal speech Results - Vitals Vitals: Vital Signs - 24 hr 12/22/19 12/22/19 12/22/19 18:02 18:08 19:34 Temperature 37.7 C H 37.7 C H Heart Rate 80 80 50 L Respiratory 16 16 17 Rate Blood Pressure 150/100 H 150/100 H 119/70 O2 Saturation 97 97 97 12/22/19 20:30 Temperature 36.8 C Heart Rate 50 L Respiratory 16 Rate Blood Pressure 115/73 O2 Saturation 98 Oxygen O2 Source Room air - Labs Labs: Laboratory Tests 12/22/19 18:10 Sodium 139 Potassium 3.6 Chloride 98 L Carbon Dioxide 30 Anion Gap 11.0 BUN 20 Creatinine 1.3 H Estimated GFR (MDRD) 74 L Glucose 111 H Calcium 9.5 Total Bilirubin 0.8 AST 29 ALT 25 Alkaline Phosphatase 72 Total Protein 8.1 Albumin 4.4 Globulin 3.7 Albumin/Globulin Ratio 1.2 Lipase 78 H Ethyl Alcohol < 5.0 PD MEDICAL DECISION MAKING - ED course ED course: 39-year-old gentleman with recurrent abdominal pain, most consistent with cannabinoid hyperemesis. Electrolytes and renal function are good. He was administered Haldol and IV fluids with improvement and passed an oral challenge. He understands the need to stop marijuana and alcohol. Departure - Departure Disposition: 01 Home, Self Care Clinical Impression: Cannabinoid hyperemesis syndrome Condition: Good Instructions: ED Nausea Vomiting Prescriptions: Promethazine [Phenergan] 25 mg PO Q6H PRN #10 tab PRN Reason: Nausea / Vomiting Comments: As you already know it is imperative to stop using drugs and alcohol for you to have a pain-free and happy life. Return anytime if worsening. Follow-up with your doctor, next available appointment. Discharge Date/Time: 12/22/19 20:30
[2019-12-22 18:30] LABS: ALBUMIN 4.4 g/dL (3.2-5.5); ALBUMIN/GLOBULIN RATIO 1.2 (1.0-2.2); ALKALINE PHOSPHATASE 72 IU/L (42-121); ALT ALANINE AMINOTRANSFERASE 25 IU/L (10-60); AST ASPARTATE AMINOTRANSFERASE 29 IU/L (10-42); BILIRUBIN,TOTAL 0.8 mg/dL (0.2-1.0); BUN - BLOOD UREA NITROGEN 20 mg/dL (6-20); CALCIUM 9.5 mg/dL (8.5-10.3); CARBON DIOXIDE - CO2 30 mmol/L (21-32); CHLORIDE 98 mmol/L (101-111); CREATININE 1.3 mg/dL (0.6-1.2); GLUCOSE 111 mg/dL (70-100); LIPASE 78 U/L (22-51); SODIUM 139 mmol/L (135-145); TOTAL PROTEIN 8.1 g/dL (6.7-8.2)
[2019-12-22 20:40] VITALS: BP 115/73
== END 2019-12-22 20:30 | disposition home or self-care (01) ==
LOC: EDUNIT# → ED 17:59
DX: R11.10 Vomiting, unspecified (principal); F12.988 Cannabis use, unspecified with other cannabis-induced disorder; I10 Essential (primary) hypertension
CPT/HCPCS: 36415; 80053; 80320; 83690; 96361; 96374; 99283

== ENCOUNTER 2019-12-24 11:27 | Outpatient (CLI) | payer MEDICAID | END 2019-12-24 11:28 | disposition critical access hospital (66) | LOC: EMS 11:27 | PROVIDERS: ATTEND Surgery | DX: R10.9 Unspecified abdominal pain (principal) | CPT/HCPCS: A0425; A0429 ==

== ENCOUNTER 2019-12-24 12:00 | Emergency (ER) | payer MEDICAID ==
--- NOTE | 2019-12-24 12:01 | ED Physician Documentation ---
PD HPI ABD PAIN - Stated complaint Stated Complaint: ABD PX - History obtained from History obtained from: Patient, EMS - History of Present Illness Timing - onset: Today Timing - duration: Hours Timing - details: Abrupt onset, Still present Quality: Cramping, Aching, Pain Location: RUQ, Epigastric Radiation: Chest, Upper back Improved by: No: Vomiting Worsened by: Eating Associated symptoms: Nausea, Vomiting. No: Fever, Hematemesis, Diarrhea Similar symptoms before: Diagnosis (hyperemesis episodes - not diabetic. Presumed cannibis related. though likely still drinks alcohol with gastritis/pancreatitis related to that in the past, with mildly elevated lipase levels often on lab testing. Last imaging here was Apr 2019 with pancreatitis. Last admission was September 2019 for intractable nausea and vomiting, also rhabdo perhaps from meth use per discharge summary (UTox positive for that at that time, but neg more recent visits, but is consistently positive for cannibis).) Review of Systems Constitutional: denies: Fever, Chills Nose: denies: Rhinorrhea / runny nose, Congestion Throat: denies: Sore throat Cardiac: denies: Chest pain / pressure Respiratory: denies: Cough GI: reports: Abdominal Pain, Nausea, Vomiting. denies: Diarrhea, Hematemesis : denies: Dysuria, Frequency PD PAST MEDICAL HISTORY - Past Medical History Past Medical History: Yes Cardiovascular: None Respiratory: None Neuro: None Endocrine/Autoimmune: None GI: GERD, Ulcers, Pancreatitis - Present Medications Home Medications: Ambulatory Orders Medication Instructions Recorded Confirmed Dicyclomine [Bentyl] 10 mg PO QID #20 capsule 11/14/19 LORazepam [Ativan] 0.5 mg PO BID PRN 5 Days #10 tablet 11/14/19 Promethazine [Phenergan] 25 mg PO Q6H PRN #10 tab 11/14/19 haloperidoL [Haldol] 2 mg PO Q8HR PRN #10 tablet 11/18/19 Promethazine [Phenergan] 25 mg PO Q6H PRN #10 tab 12/22/19 Promethazine Supp [Phenergan Supp] 25 mg [place] Q6H PRN #10 supp 12/24/19 - Allergies Allergies/Adverse Reactions: Allergies Allergy/AdvReac Type Severity Reaction Status Date / Time morphine Allergy Unknown Verified 12/24/19 12:07 PD ED PE NORMAL - Vitals Vital signs reviewed: Yes - General General: Alert and oriented X 3, Well developed/nourished, Other (appears in pain, grimacing.) - Neck Neck: Supple, no meningeal sign, No adenopathy - Cardiac Cardiac: RRR, No murmur - Respiratory Respiratory: Clear bilaterally - Abdomen Abdomen: Soft, Non distended, No organomegaly, Other (tender upper abd with guarding. Has pain with approaching my hand to his abd (anticipatory). The emesis in the bag he is holding shows gastric fluid and bile, without any blood/coffee ground material. ). No: Normal bowel sounds (decreased) - Male Male : Deferred - Rectal Rectal: Deferred - Back Back: No CVA TTP - Derm Derm: Normal color, Warm and dry Results - Vitals Vitals: Vital Signs - 24 hr 12/24/19 12/24/19 12/24/19 12:07 12:08 14:38 Temperature 37.5 C 36.9 C Heart Rate 68 97 73 Respiratory 16 16 20 Rate Blood Pressure 190/114 H 190/135 H 168/118 H O2 Saturation 98 100 98 Oxygen O2 Source Room air - Labs Labs: Laboratory Tests 12/24/19 12/24/19 12:45 12:45 WBC 8.3 RBC 5.64 Hgb 15.9 Hct 47.3 MCV 83.9 MCH 28.2 MCHC 33.6 RDW 14.9 Plt Count 316 MPV 9.0 Neut # (Auto) 5.6 Lymph # (Auto) 1.9 [place] # (Auto) 0.7 Eos # (Auto) 0.1 Baso # (Auto) 0.0 Absolute Nucleated RBC 0.00 Nucleated RBC % 0.0 Sodium 136 Potassium 3.0 L Chloride 92 L Carbon Dioxide 31 Anion Gap 13.0 BUN 18 Creatinine 1.3 H Estimated GFR (MDRD) 74 L Glucose 119 H Calcium 9.5 Total Bilirubin 0.8 AST 29 ALT 27 Alkaline Phosphatase 72 Total Protein 8.8 H Albumin 5.0 Globulin 3.8 Albumin/Globulin Ratio 1.3 Lipase 139 H PD MEDICAL DECISION MAKING - ED course Complexity details: re-evaluated patient (improved to point of sleepy with several meds targeted mostly at cannibis hyperemesis. He rouses to tactile and still says his abd hurts. I discuss with him that we as a group are not giving narcotics to him as is not the recommended treatments for cannibis hyperemesis mainly and due to his addictive personality. ), considered differential, d/w patient Departure - Departure Disposition: 01 Home, Self Care Clinical Impression: Upper abdominal pain Nausea and vomiting Qualifiers: Vomiting type: unspecified Vomiting Intractability: non-intractable Qualified Code(s): R11.2 - Nausea with vomiting, unspecified Condition: Stable Record reviewed to determine appropriate education?: Yes Instructions: ED Nausea Vomiting Follow-Up: CLARA LOGAN MD [Primary Care Provider] - Prescriptions: Promethazine Supp [Phenergan Supp] 25 mg [place] Q6H PRN #10 supp PRN Reason: Nausea / Vomiting Comments: Continue your current prescriptions. Increase the oral Haldol to 2 tablets per dose. Add promethazine suppository if needed for nausea and vomiting periodically. Follow-up with your primary care if not improved in the next day or 2. Return as needed. Discharge Date/Time: 12/24/19 16:45
[2019-12-24] MEDS ORDERED: SODIUM CHLORIDE 0.9% 1,000 ML IV STA (12:25)
[2019-12-24] MEDS ORDERED: diphenhydrAMINE INJ 50 MG/ML VIAL IVP STA (12:25)
[2019-12-24] MEDS ORDERED: HALOPERIDOL 5 MG/ML VIAL IVP ONE ×2 (12:25→14:02)
[2019-12-24] MEDS ORDERED: KETOROLAC 15 MG/ML VIAL IVP STA (12:25)
[2019-12-24 12:57] LABS: BASOPHILS % (AUTO) 0.5 %; EOSINOPHILS # (AUTO) 0.1 10^3/uL (0.0-0.7); EOSINOPHILS % (AUTO) 1.2 %; HGB - HEMOGLOBIN 15.9 g/dL (14.0-18.0); LYMPHOCYTES # (AUTO) 1.9 10^3/uL (1.5-3.5); LYMPHOCYTES % (AUTO) 22.5 %; MEAN CORPUSCULAR HEMOGLOBIN 28.2 pg (27.0-31.0); MEAN CORPUSCULAR HGB CONC 33.6 g/dL (32.0-36.0); MEAN CORPUSCULAR VOLUME 83.9 fL (80.0-94.0); MONOCYTES # (AUTO) 0.7 10^3/uL (0.0-1.0); MONOCYTES % (AUTO) 8.5 %; NEUTROPHILS # (AUTO) 5.6 10^3/uL (1.5-6.6); NEUTROPHILS % (AUTO) 66.9 %; PLT - PLATELET COUNT 316 10^3/uL (130-450); RED BLOOD COUNT 5.64 10^6/uL (4.70-6.10); RED CELL DISTRIBUTION WIDTH 14.9 % (12.0-15.0); WHITE BLOOD COUNT 8.3 x10^3/uL (4.8-10.8)
[2019-12-24 13:10] LABS: ALBUMIN/GLOBULIN RATIO 1.3 (1.0-2.2); BILIRUBIN,TOTAL 0.8 mg/dL (0.2-1.0); CALCIUM 9.5 mg/dL (8.5-10.3); CREATININE 1.3 mg/dL (0.6-1.2); TOTAL PROTEIN 8.8 g/dL (6.7-8.2)
[2019-12-24] MEDS ORDERED: LORazepam 2 MG/ML VIAL IVP STA (14:03)
[2019-12-24] MEDS ORDERED: PROMETHAZINE INJ 12.5 MG in SODIUM CHLORIDE 0.9% 50 ML IV STA (14:03)
[2019-12-24 14:39] VITALS: BP 168/118
[2019-12-24] MEDS ORDERED: DEXAMETHASONE 10 MG/ML VIAL IVP STA (16:07)
[2019-12-24] MEDS ORDERED: ONDANSETRON 4 MG/2 ML VIAL IVP STA (16:07)
[2019-12-24] MEDS ORDERED: ACETAMINOPHEN 325 MG TABLET PO STA (16:08)
== END 2019-12-24 16:45 | disposition home or self-care (01) ==
LOC: EDUNIT# → ED 12:00
DX: R10.11 Right upper quadrant pain (principal); R10.13 Epigastric pain; R11.2 Nausea with vomiting, unspecified; R07.9 Chest pain, unspecified; M54.6 Pain in thoracic spine
CPT/HCPCS: 36415; 80053; 83690; 85025; 96361; 96365; 96375; 99284; 99285; A9270; J1200; J2060; J7040

== ENCOUNTER 2019-12-25 08:19 | Outpatient (CLI) | payer MEDICAID | END 2019-12-25 08:20 | disposition EMS.NT | LOC: EMS 08:19 | PROVIDERS: ATTEND Surgery | DX: R10.9 Unspecified abdominal pain (principal); R11.10 Vomiting, unspecified ==

== ENCOUNTER 2019-12-25 11:24 | Emergency (ER) | payer MEDICAID ==
--- NOTE | 2019-12-25 12:06 | ED Physician Documentation ---
History of Present Illness - Stated complaint Stated Complaint: VOMITING - Chief complaint Chief Complaint: Abd Pain - History obtained from History obtained from: Patient, Family - History of Present Illness Timing: Prior to arrival, Chronic - Additonal information Additional information: 39-year-old gentleman presents to the emergency department with chief complaint of uncontrolled vomiting and left-sided abdominal pain. Patient was seen here for similar yesterday and again earlier last week.Patient does have a history of a cyclic vomiting syndrome often associated with alcohol use or cannabis use. He does report a history of pancreatitis. Labs yesterday indicated that he may have been mildly dry with a creatinine of 1.3 and lipase of 139. this is more elevated thant eh rpevious labs when I saw him last week Patient denies any fevers any diarrhea bloody stools or hematemesis. No cough or congestion. Denies dysuria, hematuria, or CVA pain. He has no pertinent past surgical history. In conversation with patient's mom she reports that he has been referred to a accounting instructor but with the COVID-19 pandemic the referral has not been pr ocessed. Patient's PCP is Dr. Logan. Review of Systems Constitutional: denies: Fever, Chills Cardiac: denies: Chest pain / pressure, Palpitations Respiratory: denies: Dyspnea, Cough GI: reports: Abdominal Pain, Nausea, Vomiting. denies: Constipation, Diarrhea, Hematemesis, Bloody / black stool : denies: Dysuria, Hematuria Skin: denies: Rash, Lesions Musculoskeletal: denies: Neck pain, Back pain Neurologic: denies: Generalized weakness, Focal weakness, Numbness Endocrine: denies: Polydypsia, Polyuria PD PAST MEDICAL HISTORY - Past Medical History Past Medical History: Yes Cardiovascular: None Respiratory: None Neuro: None Endocrine/Autoimmune: None GI: GERD, Ulcers, Pancreatitis : None HEENT: None Psych: Depression, Anxiety, Panic attacks, Other Musculoskeletal: None Derm: None - Past Surgical History Past Surgical History: No Ortho: Other - Present Medications Home Medications: Ambulatory Orders Medication Instructions Recorded Confirmed Dicyclomine [Bentyl] 10 mg PO QID #20 capsule 11/14/19 LORazepam [Ativan] 0.5 mg PO BID PRN 5 Days #10 tablet 11/14/19 Promethazine [Phenergan] 25 mg PO Q6H PRN #10 tab 11/14/19 haloperidoL [Haldol] 2 mg PO Q8HR PRN #10 tablet 11/18/19 Promethazine [Phenergan] 25 mg PO Q6H PRN #10 tab 12/22/19 Promethazine Supp [Phenergan Supp] 25 mg [place] Q6H PRN #10 supp 12/24/19 - Allergies Allergies/Adverse Reactions: Allergies Allergy/AdvReac Type Severity Reaction Status Date / Time morphine Allergy Unknown Verified 12/25/19 11:31 - Social History Does the pt smoke?: No Smoking Status: Never smoker Does the pt drink ETOH?: No Does the pt have substance abuse?: Yes - Immunizations Immunizations are current?: No Immunizations: Other immun not current - POLST Patient has POLST: No POLST Status: Full Code PD ED PE EXPANDED - General General: Alert, No acute distress, Well developed/nourished, Anxious - HEENT HEENT: PERRL - Neck Neck: No: Adenopathy - Cardiac Cardiac: Regular Rate, Radial strong equal - Respiratory Respiratory: Clear to ausultation sherrell - Abdomen Abdomen: Normal Bowel sounds, Other (generally tender uppe rabdomen and left side without guarding or rebound. negative murphys and mcburneys ) - Back Back: Normal exam. No: CVA TTP right, CVA TTP left - Derm Derm: Normal color, Warm and dry, Pale - Neuro Neuro: Alert and Oriented X 3, Confused, PERRL. No: Weakness, Abnormal sensation Results - Vitals Vitals: Vital Signs - 24 hr 12/25/19 12/25/19 12/25/19 11:31 11:33 13:33 Temperature 37.3 C Heart Rate 88 64 72 Respiratory 16 16 14 Rate Blood Pressure 195/122 H 170/111 H 138/86 H O2 Saturation 100 98 99 Oxygen O2 Source Room air - Labs Labs: Laboratory Tests 12/25/19 12:30 Sodium 137 Potassium 2.6 L Chloride 89 L Carbon Dioxide 33 H Anion Gap 15.0 H BUN 28 H Creatinine 1.4 H Estimated GFR (MDRD) 68 L Glucose 132 H Calcium 9.8 Total Bilirubin 0.8 AST 23 ALT 26 Alkaline Phosphatase 70 Total Protein 8.9 H Albumin 5.5 Globulin 3.4 Albumin/Globulin Ratio 1.6 Lipase 56 H PD MEDICAL DECISION MAKING - ED course Complexity details: reviewed results, re-evaluated patient, considered differential, d/w patient, d/w family ED course: 39-year-old gentleman presents to the emergency department with chief complaint of uncontrolled vomiting. He has a history of cyclic vomiting often associated with alcohol or cannabis use as well as a history of pancreatitis. - Lipase today was 56 and reduced from yesterday's lab values. Patient admits to recent cannabis use. Patient was given 3 mg of Haldol as well as Zofran in the emergency department. Since the administration of those medications he has rested comfortably and his abdominal pain has abated. He is now able to sip apple juice. And he feels ready to go home. - Other labs revealed a hypokalemia with a serum potassium of 2.6. This likely reflects multiple days of vomiting. Patient's potassium was repleted in the emergency department with 20 M EQ of KCl. - I spoke at length with patient and his mom regarding Javi's frequent visits to the emergency department for cyclic vomiting. Per mom patient has a pending gastroenterology consult which is pending and she will follow-up tomorrow to make the appointment.Patient has adequate supply of antiemetic at home.Patient was cautioned to avoid any cannabis or alcohol use. Departure - Departure Disposition: 01 Home, Self Care Clinical Impression: Vomiting Qualifiers: Vomiting type: unspecified Vomiting Intractability: non-intractable Nausea presence: without nausea Qualified Code(s): R11.11 - Vomiting without nausea Condition: Stable Record reviewed to determine appropriate education?: Yes Instructions: ED Nausea Vomiting Follow-Up: CLARA LOGAN MD [Primary Care Provider] - Within 1 week Comments: Javi I think it is important that you follow-up with Dr. Logan as well as continue to make the scheduled visit with the accounting instructor to discuss your recurrent episodes of vomiting. Drink lots of clear liquids for the next 24 hours and slowly advance your diet as able. If you develop fevers bloody vomit or bloody stools return immediately to the emergency department please abstain from the use of alcohol or cannabis if you are able.
[2019-12-25] MEDS ORDERED: SODIUM CHLORIDE 0.9% 1,000 ML IV STA (12:12)
[2019-12-25] MEDS ORDERED: HALOPERIDOL 5 MG/ML VIAL IVP ONE (12:12)
[2019-12-25] MEDS ORDERED: ONDANSETRON 4 MG/2 ML VIAL IVP STA (12:17)
[2019-12-25 13:01] LABS: ALBUMIN 5.5 g/dL (3.2-5.5); ALBUMIN/GLOBULIN RATIO 1.6 (1.0-2.2); BILIRUBIN,TOTAL 0.8 mg/dL (0.2-1.0); CALCIUM 9.8 mg/dL (8.5-10.3); CREATININE 1.4 mg/dL (0.6-1.2); TOTAL PROTEIN 8.9 g/dL (6.7-8.2)
[2019-12-25] MEDS ORDERED: POTASSIUM CHLOR 10 MEQ/100 ML 10 MEQ/100 ML BAG IV STA ×2 (13:14)
[2019-12-25 15:59] VITALS: BP 118/76
== END 2019-12-25 15:58 | disposition home or self-care (01) ==
LOC: ED 11:24
DX: R11.2 Nausea with vomiting, unspecified (principal); E87.6 Hypokalemia; R10.9 Unspecified abdominal pain; Z87.19 Personal history of other diseases of the digestive system
CPT/HCPCS: 80053; 83690; 96361; 96365; 96375; 99284

== ENCOUNTER 2019-12-26 13:18 | Outpatient (CLI) | payer MEDICAID | END 2019-12-26 13:19 | disposition critical access hospital (66) | LOC: EMS 13:18 | PROVIDERS: ATTEND Surgery | DX: R10.9 Unspecified abdominal pain (principal) | CPT/HCPCS: A0425; A0429 ==

== ENCOUNTER 2019-12-26 13:39 | Emergency (ER) | payer MEDICAID ==
[2019-12-26] MEDS ORDERED: HALOPERIDOL 5 MG/ML VIAL IM STA (13:55)
--- NOTE | 2019-12-26 14:00 | ED Physician Documentation ---
PD HPI NVD - Stated complaint Stated Complaint: ABD PAIN - Chief complaint Chief Complaint: Abd Pain - History obtained from History obtained from: Patient, EMS - History of Present Illness Timing - onset: Last night Timing - duration: Hours Timing - details: Gradual onset, Still present, Waxing and waning Associated symptoms: Abdominal pain Contributing factors: Other (continued canabis use. Last use was 2 days ago.) Improved by: Meds Similar symptoms before: Diagnosis (canabis hyperemesis and pancreatitis) Recently seen: Emergency Dept Review of Systems Constitutional: denies: Fever Eyes: denies: Decreased vision Ears: denies: Ear pain Nose: denies: Rhinorrhea / runny nose, Congestion Throat: denies: Sore throat Cardiac: denies: Chest pain / pressure, Palpitations Respiratory: denies: Dyspnea, Cough GI: reports: Abdominal Pain, Nausea, Vomiting : denies: Dysuria, Frequency Skin: denies: Rash Musculoskeletal: denies: Neck pain, Back pain, Extremity pain Neurologic: denies: Generalized weakness, Focal weakness, Numbness PD PAST MEDICAL HISTORY - Past Medical History Cardiovascular: None Respiratory: None Neuro: None Endocrine/Autoimmune: None GI: GERD, Ulcers, Pancreatitis : None HEENT: None Psych: Depression, Anxiety, Panic attacks, Other Musculoskeletal: None Derm: None - Past Surgical History Past Surgical History: No Ortho: Other - Present Medications Home Medications: Ambulatory Orders Medication Instructions Recorded Confirmed Dicyclomine [Bentyl] 10 mg PO QID #20 capsule 11/14/19 LORazepam [Ativan] 0.5 mg PO BID PRN 5 Days #10 tablet 11/14/19 Promethazine [Phenergan] 25 mg PO Q6H PRN #10 tab 11/14/19 haloperidoL [Haldol] 2 mg PO Q8HR PRN #10 tablet 11/18/19 Promethazine [Phenergan] 25 mg PO Q6H PRN #10 tab 12/22/19 Promethazine Supp [Phenergan Supp] 25 mg [place] Q6H PRN #10 supp 12/24/19 Promethazine Supp [Phenergan Supp] 25 mg [place] Q6HR PRN #14 supp 12/26/19 - Allergies Allergies/Adverse Reactions: Allergies Allergy/AdvReac Type Severity Reaction Status Date / Time morphine Allergy Unknown Verified 12/26/19 13:44 - Social History Does the pt smoke?: No Smoking Status: Never smoker Does the pt drink ETOH?: No Does the pt have substance abuse?: Yes - Immunizations Immunizations are current?: No Immunizations: Other immun not current - POLST Patient has POLST: No POLST Status: Full Code PD ED PE NORMAL - Vitals Vital signs reviewed: Yes (hypertensive) - General General: Alert and oriented X 3, Well developed/nourished, Other (Patient had the affect of pain with superintendent sales tone and flattened affect.) - HEENT HEENT: Atraumatic, PERRL, EOMI - Neck Neck: Supple, no meningeal sign, No bony TTP - Cardiac Cardiac: RRR, No murmur - Respiratory Respiratory: No respiratory distress, Clear bilaterally - Abdomen Abdomen: Soft, Other (mild epigastric tenderness without garding or rebound) - Back Back: No CVA TTP, No spinal TTP - Derm Derm: Normal color, Warm and dry, No rash - Extremities Extremities: No deformity, No edema - Neuro Neuro: Alert and oriented X 3, shot peen operator 2-12 intact, No motor deficit, No sensory deficit, Normal speech Eye Opening: Spontaneous Motor: Obeys Commands Verbal: Oriented GCS Score: 15 - Psych Psych: Normal mood, Normal affect Results - Vitals Vitals: Vital Signs - 24 hr 12/26/19 12/26/19 13:44 13:47 Temperature 37 C Heart Rate 68 70 Respiratory 16 16 Rate Blood Pressure 116/83 H 122/65 O2 Saturation 98 99 Oxygen O2 Source Room air PD MEDICAL DECISION MAKING - ED course Complexity details: reviewed old records, reviewed results, re-evaluated patient, considered differential, d/w patient ED course: 39-year-old male with a history of cannabis hyperemesis and pancreatitis is on the fifth day of his hyperemesis. He has not had cannabis for 2 days. He had some relief yesterday with some Haldol when this wore off his symptoms return. He does not think he has luck with oral Haldol. Here in the emergency department he is administered Haldol 5 mg IM and Toradol 60 mg IM. Departure - Departure Disposition: 01 Home, Self Care Clinical Impression: Cannabinoid hyperemesis syndrome Nausea & vomiting Qualifiers: Vomiting type: unspecified Vomiting Intractability: non-intractable Qualified Code(s): R11.2 - Nausea with vomiting, unspecified Condition: Stable Instructions: ED Nausea Vomiting Follow-Up: CLARA LOGAN MD [Primary Care Provider] - Prescriptions: Promethazine Supp [Phenergan Supp] 25 mg [place] Q6HR PRN #14 supp PRN Reason: Nausea / Vomiting
[2019-12-26] MEDS ORDERED: KETOROLAC 60 MG/2 ML VIAL IM STA (14:01)
[2019-12-26 15:48] VITALS: BP 116/83
== END 2019-12-26 15:47 | disposition home or self-care (01) ==
LOC: EDUNIT# → ED 13:39
DX: R11.2 Nausea with vomiting, unspecified (principal); F12.988 Cannabis use, unspecified with other cannabis-induced disorder; Z87.19 Personal history of other diseases of the digestive system
CPT/HCPCS: 96372; 99283; 99284

== ENCOUNTER 2020-02-11 14:06 | Outpatient (CLI) | payer MEDICAID | END 2020-02-11 14:07 | disposition critical access hospital (66) | LOC: EMS 14:06 | PROVIDERS: ATTEND Surgery | DX: R10.10 Upper abdominal pain, unspecified (principal); R11.0 Nausea | CPT/HCPCS: A0425; A0429 ==

== ENCOUNTER 2020-02-11 14:37 | Inpatient (IN) | payer MEDICAID ==
[2020-02-11] MEDS ORDERED: HALOPERIDOL 5 MG/ML VIAL IVP ONE ×2 (14:43→18:08)
[2020-02-11] MEDS ORDERED: KETOROLAC 30 MG/ML VIAL IVP STA (14:43)
[2020-02-11] MEDS ORDERED: SODIUM CHLORIDE 0.9% 1,000 ML IV STA (14:43)
--- NOTE | 2020-02-11 14:44 | ED Physician Documentation ---
PD HPI ABD PAIN - Stated complaint Stated Complaint: ABD PX - History obtained from History obtained from: Patient - Additional information Additional information: 39-year-old gentleman with chronic recurrent abdominal pain due to cannabinoid hyperemesis presents with 3-day exacerbation of same with upper abdominal pain and vomiting. The pain is severe. Similar to prior episodes. Nothing makes it better or worse. Review of Systems Ten Systems: 10 systems reviewed and negative Constitutional: reports: Reviewed and negative Ears: reports: Reviewed and negative Throat: reports: Reviewed and negative Cardiac: denies: Chest pain / pressure, Palpitations, Pedal edema, Calf pain Respiratory: reports: Reviewed and negative PD PAST MEDICAL HISTORY - Past Medical History Cardiovascular: None Respiratory: None Neuro: None Endocrine/Autoimmune: None GI: GERD, Ulcers, Pancreatitis : None HEENT: None Psych: Depression, Anxiety, Panic attacks, Other Musculoskeletal: None Derm: None - Past Surgical History Past Surgical History: No Ortho: Other - Present Medications Home Medications: Ambulatory Orders Medication Instructions Recorded Confirmed LORazepam [Ativan] 0.5 mg PO BID PRN 5 Days #10 tablet 11/14/19 02/11/20 haloperidoL [Haldol] 2 mg PO Q8HR PRN #10 tablet 11/18/19 02/11/20 Promethazine Supp [Phenergan Supp] 25 mg [place] Q6H PRN #10 supp 12/24/19 02/11/20 oxyCODONE [Roxicodone] 5 mg PO Q6HR PRN #10 tablet 12/29/19 02/11/20 Dicyclomine [Bentyl] 10 mg PO QID PRN 02/11/20 02/11/20 Ondansetron [Ondansetron Odt] 8 mg TL Q6H PRN 02/11/20 02/11/20 - Allergies Allergies/Adverse Reactions: Allergies Allergy/AdvReac Type Severity Reaction Status Date / Time morphine Allergy Unknown Verified 01/01/20 07:30 - Social History Does the pt smoke?: No Smoking Status: Never smoker Does the pt drink ETOH?: No Does the pt have substance abuse?: Yes - Family History Family history: reports: Non contributory - Immunizations Immunizations are current?: No Immunizations: Other immun not current - POLST Patient has POLST: No POLST Status: Full Code PD ED PE NORMAL - Vitals Vital signs reviewed: Yes - General General: Alert and oriented X 3, Other (Appears uncomfortable) - HEENT HEENT: PERRL, EOMI - Neck Neck: Supple, no meningeal sign, No bony TTP - Cardiac Cardiac: RRR, No murmur - Respiratory Respiratory: No respiratory distress, Clear bilaterally - Abdomen Abdomen: Soft, Non tender - Back Back: No CVA TTP, No spinal TTP - Derm Derm: Normal color, Warm and dry, No rash - Extremities Extremities: No edema, No calf tenderness / cord - Neuro Neuro: Alert and oriented X 3, Normal speech - Psych Psych: Normal mood, Normal affect Results - Vitals Vitals: Vital Signs - 24 hr 02/11/20 02/11/20 14:35 15:34 Temperature 36 C L Heart Rate 114 H 80 Respiratory 22 18 Rate Blood Pressure 178/131 H 211/143 H O2 Saturation 99 98 Oxygen O2 Source Room air - Labs Labs: Laboratory Tests 02/11/20 02/11/20 14:40 14:40 WBC 6.4 RBC 6.93 H Hgb 20.1 H Hct 58.8 H MCV 84.8 MCH 29.0 MCHC 34.2 RDW 16.5 H Plt Count 343 MPV 9.4 Neut # (Auto) 3.7 Lymph # (Auto) 1.8 [place] # (Auto) 0.8 Eos # (Auto) 0.0 Baso # (Auto) 0.0 Absolute Nucleated RBC 0.00 Nucleated RBC % 0.0 Sodium 135 Potassium 3.0 L Chloride 89 L Carbon Dioxide 26 Anion Gap 20.0 H BUN 33 H Creatinine 2.9 H Estimated GFR (MDRD) 30 L Glucose 171 H Calcium 10.9 H Total Bilirubin 1.4 H AST 26 ALT 25 Alkaline Phosphatase 91 Total Protein 10.2 H Albumin 6.3 H Globulin 3.9 Albumin/Globulin Ratio 1.6 Lipase 47 PD MEDICAL DECISION MAKING - ED course ED course: 39-year-old gentleman with chronic recurrent issues related to cannabinoid hyperemesis presents with an exacerbation of same. Found to have acute renal failure. His baseline creatinine is usually about 1.1. He was given IV fluids and meds for his symptoms. Spoke with Dr. Levine for observation for continued IV fluid therapy and serial labs at 3:30 PM. Departure - Departure Disposition: ED Place in Observation Clinical Impression: Cannabinoid hyperemesis syndrome, Acute kidney injury Condition: Fair Discharge Date/Time: 02/11/20 16:33
[2020-02-11 15:05] LABS: ALBUMIN 6.3 g/dL (3.2-5.5); BILIRUBIN,TOTAL 1.4 mg/dL (0.2-1.0); CALCIUM 10.9 mg/dL (8.5-10.3); CREATININE 2.9 mg/dL (0.6-1.2); TOTAL PROTEIN 10.2 g/dL (6.7-8.2)
[2020-02-11 15:06] LABS: ALBUMIN/GLOBULIN RATIO 1.6 (1.0-2.2)
[2020-02-11] MEDS ORDERED: LACTATED RINGERS 1,000 ML IV STA (15:13)
[2020-02-11] MEDS ORDERED: LIDOCAINE VISCOUS 2% 15 ML UDC MM STA (15:18)
[2020-02-11] MEDS ORDERED: ACETAMINOPHEN 1,000 MG/100 ML 100 ML IV ONE (15:18)
[2020-02-11] MEDS ORDERED: METOCLOPRAMIDE 10 MG/2 ML VIAL IVP STA (15:18)
[2020-02-11] MEDS ORDERED: MAG HYDROX/AL HYDROX/SIMETH 30 ML UDC PO STA (15:18)
[2020-02-11 15:19] LABS: BASOPHILS % (AUTO) 0.5 %; EOSINOPHILS % (AUTO) 0.6 %; HGB - HEMOGLOBIN 20.1 g/dL (14.0-18.0); LYMPHOCYTES # (AUTO) 1.8 10^3/uL (1.5-3.5); LYMPHOCYTES % (AUTO) 27.6 %; MEAN CORPUSCULAR HGB CONC 34.2 g/dL (32.0-36.0); MEAN CORPUSCULAR VOLUME 84.8 fL (80.0-94.0); MEAN PLATELET VOLUME 9.4 fL (7.4-11.4); MONOCYTES # (AUTO) 0.8 10^3/uL (0.0-1.0); MONOCYTES % (AUTO) 12.4 %; NEUTROPHILS # (AUTO) 3.7 10^3/uL (1.5-6.6); NEUTROPHILS % (AUTO) 58.6 %; PLT - PLATELET COUNT 343 10^3/uL (130-450); RED BLOOD COUNT 6.93 10^6/uL (4.70-6.10); RED CELL DISTRIBUTION WIDTH 16.5 % (12.0-15.0); WHITE BLOOD COUNT 6.4 x10^3/uL (4.8-10.8)
[2020-02-11] MEDS ORDERED: ACETAMINOPHEN 325 MG TABLET PO PRN (15:38)
[2020-02-11] MEDS ORDERED: ONDANSETRON ODT 4 MG TABLET TL PRN (15:38)
--- NOTE | 2020-02-11 16:16 | PHARMACY PROGRESS NOTE ---
- Best Possible Medication History Admit Date and Time: 02/11/20 1538 Processed by: Pharmacy Medication History completed: Yes Secondary Source(s): Pharmacy records, Insurance records, Previous admit records As the person ultimately responsible for medication therapy, providers are able to order a medication from an existing home medication list in [facility] via the "Reconcile Routine" prior to Confirmation of that medication by sales support coordinator. Such practice is discouraged except when the physician, in their clinical judgment, deems that a medical need exists for a medication without regard to previous use.
[2020-02-11] MEDS: hydrALAZINE INJ 20 MG/ML VIAL IVP PRN (16:56)
[2020-02-11] MEDS: SODIUM CHLORIDE FLUSH 0.9% 10 ML SYRINGE IVP SCH (16:57)
[2020-02-11] MEDS: PANTOPRAZOLE 40 MG VIAL IVP SCH (17:05)
[2020-02-11] MEDS: SODIUM CHLORIDE FLUSH 0.9% 10 ML SYRINGE IVP PRN ×4 (17:05→20:38)
[2020-02-11] MEDS: SODIUM CHLORIDE 0.9% 1,000 ML IV SCH ×2 (17:05→21:59)
--- NOTE | 2020-02-11 17:53 | HISTORY & PHYSICAL EXAMINATION ---
Chief Complaint - Chief Complaint Chief Complaint: nausea and vomitting w abd pain History of Present Illness - Admitted From Admitted From:: HOme/ER - History Obtained From Records Reviewed: [facility] History obtained from: patient and Dr. Morton Exam Limitations: pain - History of Present Illness HPI Comment/Other: The patient is an unfortunate black male who has had intermittent left upper quadrant pain since 2007. At that time he was drinking close to 12 beers a day and was diagnosed as having alcoholic pancreatitis. He had no further episodes of abdominal pain or pancreatitis until 2014. Starting in 2014 into 2016 he had minimal disease activity. However, starting in March 2017 he has had multiple admissions for nausea, vomiting, and abdominal pain. He has been seen by metals sales representative at [facility]. He does not remember the name of that metals sales representative but in review of the records that was Dr. Miller. That was in 2019. Over the course of time from 2016 onward, he has had retroperitoneal ultrasounds to rule out urinary obstruction. Multiple CTs of the abdomen that occasionally show some faint stranding around the mesentery of his that is around his pancreas. MRCP has been negative for ductal dilatation. EGD has been negative for the cause of his epigastric pain.He has been seen by general surgery. They reviewed the chart and felt that he may have pancreatitis of unknown etiology. EGD, colonoscopy, MRCP, CTs of the abdomen were all reviewed by the surgeon in 2017. He also recommended follow-up with gastroenterology. He does smoke cannabis. He does endorse the fact that when he smokes, and he is at home with this pain, getting in the shower will help that pain quite a bit. But he is adamant that he does not have cyclical vomiting. He states "there only 6 cases of this nationwide". He is unhappy that we are "treating him for this" when he feels that that is not his diagnosis. With his episodes of abdominal pain, nausea and vomiting, he has had intermittent acute kidney injury from dehydration. The highest his creatinine is gotten was in September 2019 when he was 3.7. He was seen in December of this year for the same problem and creatinine was 2.1 and came down to 1.4. At discharge is 1.1. He now presents to our emergency room with 3 days of the same upper abdominal pain that he always has but getting worse. The vomiting is uncontrollable. Pain is severe. It is in the epigastric region. It is nonradiating. No change in position makes it better.Food does not make it better. Having a bowel movement does not make it better. Again, getting in the shower does help.There is no blood in his stool, no blood in his emesis. He denies fever, chills.There is no change in the color of his urine. There is no change in the color of his stool. There is no diarrhea. In the emergency room he was evaluated by Dr. Lee. Afebrile, slightly tachycardic at 114, blood pressure 174/131. Repeat blood pressure was 211/143. He was 99% on room air. Dr. Morton did not repeat CTs of the abdomen, chest x- ray since many of these have been done before. White cell count was normal at 6.4. Hemoglobin is newly elevated at 20.1. In December he was 16.8. He is hypokalemic with a potassium of 3.0. Anion gap is high at 20. BUN 33, creatinine 2.9. Glucose 171. Calcium newly elevated at 10.9, total bili 1.4. The rest of his liver enzymes are normal. Total protein 10.2. Albumin 6.3. In the past toxicology screens have been positive for cannabis on a regular basis. Alcohol levels of 0. No other substances noted on tox screen other than occasional oxycodone. He is now admitted for recurrent episode of abdominal pain with nausea and vomiting, and acute kidney injury from dehydration. In the emergency room he is received Haldol, Toradol, lactated Ringer's, GI cocktail, Reglan, and acetaminophen. History - Past Medical History Cardiovascular: reports: Hypertension Respiratory: reports: None Neuro: reports: None Endocrine/Autoimmune: reports: None GI: reports: GERD, Ulcers, Pancreatitis : reports: None HEENT: reports: None Psych: reports: Depression, Anxiety, Panic attacks, Other Musculoskeletal: reports: None Derm: reports: None MRSA Hx?: No - Past Surgical History Ortho: reports: Other - Family & Social History Family History: Mother: Alive and Well, Hypertension, Father: Alive and Well, Hypertension, Renal Disease/Failure, Other family: Mental Illness Family History Comment/Other: Patient's mother has obesity, hypertension, arthritis and history of aortic dissection with aneurysm at the age of 50. One brother had a bicuspid aortic valve and had an aneurysm in his 20s. Living arrangement: At home Living Situation: With family Social History Notes: He is unmarried. He does have 6 children with several mothers. His youngest child is 3 year old and his oldest is 21. 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 He now works in [employer]. He was drinking up to a pack and a half of beer a day when he stopped drinking in 2015. He drinks a beer once every 2 weeks. He does use cannabis daily he states that he smokes about a gram a day. The patient does smoke cigarettes about half a pack a day and has been doing so since his teen years. He denies any use of cocaine, heroin, LSD, methamphetamines. He denies any IV drug abuse. He is still living with his mother and father and 1 of his brothers. While he is independent with activities of daily living with regard to dressing himself and feeding himself he is usually too tired to do much else. He still cooks for the family in general. In any given time many of his siblings, nieces and nephews are around the house and he participates in cooking and cleaning in the kitchen. - Substance History Use: Uses substance without health or social issues: Cannabis, Tobacco - POLST Patient has POLST: No POLST Status: Full Code Meds/Allgy - Home Medications Home Medications: Ambulatory Orders Medication Instructions Recorded Confirmed LORazepam [Ativan] 0.5 mg PO BID PRN 5 Days #10 tablet 11/14/19 02/11/20 haloperidoL [Haldol] 2 mg PO Q8HR PRN #10 tablet 11/18/19 02/11/20 Promethazine Supp [Phenergan Supp] [address] Q6H PRN #10 supp 12/24/19 02/11/20 oxyCODONE [Roxicodone] 5 mg PO Q6HR PRN #10 tablet 12/29/19 02/11/20 Dicyclomine [Bentyl] 10 mg PO QID PRN 02/11/20 02/11/20 Ondansetron [Ondansetron Odt] 8 mg TL Q6H PRN 02/11/20 02/11/20 - Allergies Allergies/Adverse Reactions: Allergies Allergy/AdvReac Type Severity Reaction Status Date / Time morphine Allergy Unknown Verified 01/01/20 07:30 Review of Systems - Constitutional Constitutional: reports: Fatigue, Poor appetite. denies: Fever, Chills, Malaise, Weakness, Diaphoresis, Night sweats - Eyes Eyes: denies: Pain, Irritation, Amaurosis, Blurred vision, Dipolpia - Ears, Nose & Throat Ears, Nose & Throat: denies: Hearing loss, Hearing aids, Tinnitus, Vertigo - Cardiovascular Cariovascular: denies: Irregular heart rate, Palpitations, Chest pain, Edema - Respiratory Respiratory: denies: Cough, Sputum production, Wheezing, Snoring - Gastrointestinal Gastrointestinal: reports: Abdominal pain, Abdominal distention, Nausea, Vomiting, Reflux/heartburn. denies: Coffee grounds emesis, Poor appetite - Genitourinary Genitourinary: denies: Dysuria, Frequency, Urgency, Hematuria - Musculoskeletal Musculoskeletal: reports: Back pain, Joint pain - Integumentary Integumentary: denies: Rash, Pruritis, Lesions, Dryness - Neurological Neurological: reports: Headache. denies: General weakness, Focal weakness, Dizziness - Psychiatric Psychiatric: denies: Depression, Anxiety, Suicidal - Endocrine Endocrine: denies: Polyuria, Polydypsia, Polyphagia - Hematologic/Lymphatic Hematologic/Lymphatic: denies: Anemia, Bruising Prior Level of Functionality: He lives with his mom and dad. Independent with activities of daily living. He helps out around the house with cooking and light chores. Exam - Vital Signs Reviewed Vital Signs: Yes Vital Signs: Vital Signs x48h Temp Pulse Pulse Pulse Resp BP BP 02/11/20 17:30 91 190/111 H 02/11/20 17:15 101 H 215/105 H 02/11/20 17:05 73 196/113 H 02/11/20 17:00 75 199/123 H 02/11/20 16:56 213/129 H 02/11/20 16:54 63 213/129 H 02/11/20 16:40 37.1 C 71 20 02/11/20 16:32 98 18 208/136 H 02/11/20 15:34 80 18 211/143 H 02/11/20 14:35 36 C L 114 H 22 178/131 H BP Pulse Ox 02/11/20 17:30 02/11/20 17:15 02/11/20 17:05 02/11/20 17:00 02/11/20 16:56 02/11/20 16:54 02/11/20 16:40 215/126 H 97 02/11/20 16:32 98 02/11/20 15:34 98 02/11/20 14:35 99 - Physical Exam General Appearance: positive: Moderate distress, Anxious, Other (Cachectic black male who has is hands to his face, saying that this is very stressful and he needs to be able to get "control of this".) Eyes Bilateral: positive: PERRL ENT: positive: Dry mucous membranes Neck: positive: No JVD. negative: Stiff neck Respiratory: positive: Chest non-tender. negative: Wheezes, Rales, Rhonchi Cardiovascular: positive: Regular rate & rhythm. negative: Gallop/S4, Friction rub Peripheral Pulses: positive: 1+ Abdomen: positive: No organomegaly, Nml bowel sounds, Tenderness (There is diffuse. Firm musculature, no distention). negative: Guarding, Rebound Skin: positive: Warm, Dry. negative: Diaphoresis Extremities: positive: Non-tender, No pedal edema Neurologic/Psychiatric: positive: Oriented x3, CN's nml (2-12), Motor nml Conclusion/Plan - Problem List (1) Acute kidney injury Conclusion/Plan: This is the main reason we have admitted him. He has been unresponsive to treatment in the emergency room, but the sharp rise in BUN and creatinine with an anion gap indicate how dehydrated he is from his nausea and vomiting. Indirect indicators are also the elevated hemoglobin of 20.1, elevated total protein and albumin. He has hypokalemia with this. Plan: Aggressive IV hydration Avoid nephrotoxic agent. Unfortunately he prefers that we use opioids opioids and we are trying to avoid that him. We have given him Toradol in the ER, here. Will limit it to 5 doses total Potassium IV replacment (2) Cannabinoid hyperemesis syndrome Conclusion/Plan: He is very firm in stating that this is not a problem. But he did explain to me that the only pain relief he gets at home was to get in a hot shower. We have asked him to please stop using cannabis several times over the years. He states that he is never been told that by anyone. I did carefully explained to him that the last time he was here I did tell him that. In reading his chart, the possibility of gastritis, ulcers, pancreatitis or chronic pancreatitis has been thought of. But his amylase and lipase is been normal. Other than faint fat stranding on CT that comes and goes, no objective findings seen so far. MRCP has been negative. There are nerve blocks for chronic pain from chronic pancreatitis. That is an option. Dietary management with Pancrease is also possibility. But again, there needs to be careful, thought out work-up, and treatment program for him to follow through on. I have shared all of this with him. Plan: Hopefully, as an outpatient, he will be able to refrain from cannabis use. At least for several months to see if we are correct in our postulated diagnosis. Strongly encouraged to follow thru with his GI doctor he met last year. I have given him articles on canibus hyperemesis in the past as well as found GI specialists in [place] to send him to. He has not been able to make those followups. (3) HTN (hypertension) Conclusion/Plan: He is not on any blood pressure medicines in the outpatient setting. He says that his regular doctor has not told him he has a problem that he needs medicines.In the past he has been evaluated for adrenal masses and CTs have been negative. Metanephrines were measured and normal. Plan: Hydralazine as needed Lopressor as needed Qualifiers: Hypertension type: unspecified Qualified Code(s): I10 - Essential (primary) hypertension (4) Chronic pain syndrome Conclusion/Plan: He does feel that he has chronic pain syndrome. It waxes and wanes. Is centered around his abdominal complaints. He comes to the hospital when he cannot take it anymore. But he is never establish himself with a primary care provider to address this issue, nor has he been referred to chronic pain clinic. He says that the only opiates he use are those prescribed by our physicians during his hospitalizations. His last prescription was for for oxycodone prescribed from his December 2019 admission. Plan: We will try and use Toradol Focus on antiemetics 1 dose of Ativan Avoid opiates Encourage outpatient follow-up with the pain clinic after he establish himself with a primary care provider - Lab Results Lab results reviewed: Yes Fish Bones: 02/11/20 14:40 02/11/20 14:40 Core Measures - Anticipated LOS I expect patient to be DC'd or transferred within 96 hours.: Yes - DVT/VTE - Prophylaxis VTE/DVT Device ordered at admit?: Yes
[2020-02-11] MEDS: PROMETHAZINE 25 MG/1 ML VIAL IM PRN (17:59)
[2020-02-11] MEDS ORDERED: LORazepam 2 MG/ML VIAL IVP PRN (18:07)
[2020-02-11] MEDS: KETOROLAC 15 MG/ML VIAL IVP PRN (18:14)
[2020-02-11] MEDS: POTASSIUM CHLOR 10 MEQ/100 ML 10 MEQ/100 ML BAG IV SCH ×4 (18:51→21:58)
[2020-02-11] MEDS: ONDANSETRON 4 MG/2 ML VIAL IVP PRN (20:34)
[2020-02-11] MEDS: METOPROLOL 5 MG/5 ML VIAL IVP PRN (20:38)
[2020-02-11] MEDS: ACETAMINOPHEN 1,000 MG/100 ML 100 ML IV PRN (20:55)
[2020-02-12] MEDS: KETOROLAC 15 MG/ML VIAL IVP PRN ×2 (01:18→08:09)
[2020-02-12] MEDS: SODIUM CHLORIDE FLUSH 0.9% 10 ML SYRINGE IVP SCH ×4 (01:21→23:29)
[2020-02-12] MEDS: PROMETHAZINE 25 MG/1 ML VIAL IM PRN ×2 (01:24→10:43)
[2020-02-12] MEDS: METOPROLOL 5 MG/5 ML VIAL IVP PRN ×2 (01:31→09:43)
[2020-02-12] MEDS: ONDANSETRON 4 MG/2 ML VIAL IVP PRN (02:45)
[2020-02-12 05:14] LABS: BASOPHILS % (AUTO) 0.1 %; EOSINOPHILS % (AUTO) 0.1 %; HGB - HEMOGLOBIN 15.8 g/dL (14.0-18.0); LYMPHOCYTES # (AUTO) 0.5 10^3/uL (1.5-3.5); LYMPHOCYTES % (AUTO) 5.6 %; MEAN CORPUSCULAR HEMOGLOBIN 28.2 pg (27.0-31.0); MEAN CORPUSCULAR HGB CONC 33.2 g/dL (32.0-36.0); MEAN PLATELET VOLUME 9.5 fL (7.4-11.4); MONOCYTES # (AUTO) 0.3 10^3/uL (0.0-1.0); MONOCYTES % (AUTO) 3.9 %; NEUTROPHILS # (AUTO) 7.9 10^3/uL (1.5-6.6); PLT - PLATELET COUNT 282 10^3/uL (130-450); RED CELL DISTRIBUTION WIDTH 14.7 % (12.0-15.0); WHITE BLOOD COUNT 8.8 x10^3/uL (4.8-10.8)
[2020-02-12 05:22] LABS: CALCIUM 9.4 mg/dL (8.5-10.3); CREATININE 1.4 mg/dL (0.6-1.2)
[2020-02-12] MEDS: PANTOPRAZOLE 40 MG VIAL IVP SCH (06:54)
[2020-02-12] MEDS: SODIUM CHLORIDE FLUSH 0.9% 10 ML SYRINGE IVP PRN (06:54)
[2020-02-12] MEDS: hydrALAZINE INJ 20 MG/ML VIAL IVP PRN (08:07)
[2020-02-12] MEDS: polyethylene glycoL 3350 17 GM PACKET PO SCH (08:11)
[2020-02-12] MEDS: SODIUM CHLORIDE 0.9% 1,000 ML IV SCH ×3 (08:12→21:18)
[2020-02-12] MEDS ORDERED: cloNIDine 0.1 MG TABLET PO PRN (08:36)
--- NOTE | 2020-02-12 10:34 | PROVIDER PROGRESS NOTE ---
Subjective - Prog Note Date Prog Note Date: 02/12/20 - Subjective Pt reports feeling: Improved Subjective: Patient report he feel better and has no nausea or vomiting, and abdominal pain is good control, he hopes to have some to eat. Current Medications - Current Medications Current Medications: Active Medications Acetaminophen (Tylenol) 650 mg PO Q4HR PRN PRN Reason: Pain 1 to 4 Clonidine HCl (Catapres) 0.1 mg PO BID PRN PRN Reason: Hypertensive Emergency Hydralazine HCl (Apresoline Inj) 10 mg IVP TID PRN PRN Reason: Hypertensive Emergency Last Admin: 02/12/20 08:07 Dose: 10 mg Documented by: Acetaminophen (Ofirmev) 100 mls @ 400 mls/hr IV Q6HR PRN PRN Reason: PAIN Last Infusion: 02/11/20 21:10 Dose: Infused Documented by: Sodium Chloride (Normal Saline 0.9%) 1,000 mls @ 150 mls/hr IV .Q6H40M [facility] Last Admin: 02/12/20 08:12 Dose: 150 mls/hr Documented by: Ketorolac Tromethamine (Toradol Inj (15mg)) 15 mg IVP Q6HR PRN PRN Reason: PAIN Stop: 02/16/20 17:51 Last Admin: 02/12/20 08:09 Dose: 15 mg Documented by: Lorazepam (Ativan Inj (Vial)) 0.5 mg IVP Q2H PRN PRN Reason: Anxiety Metoprolol Tartrate (Lopressor Inj) 5 mg IVP Q6H PRN PRN Reason: Hypertensive Emergency Last Admin: 02/12/20 09:43 Dose: 5 mg Documented by: Ondansetron HCl (Zofran Odt) 4 mg TL Q6HR PRN PRN Reason: Nausea / Vomiting Last Admin: 02/12/20 08:10 Dose: 4 mg Documented by: Ondansetron HCl (Zofran Inj) 4 mg IVP Q6HR PRN PRN Reason: Nausea / Vomiting Last Admin: 02/12/20 02:45 Dose: 4 mg Documented by: Pantoprazole Sodium (Protonix) 40 mg IVP QDAC [facility] Last Admin: 02/12/20 06:54 Dose: 40 mg Documented by: Polyethylene Glycol (Miralax) 17 gm PO DAILY [facility] Last Admin: 02/12/20 08:11 Dose: Not Given Documented by: Promethazine HCl (Phenergan Inj) 25 mg IM Q6HR PRN PRN Reason: Nausea / Vomiting Last Admin: 02/12/20 01:24 Dose: 25 mg Documented by: Sodium Chloride (Normal Saline Flush 0.9%) 10 ml IVP PRN PRN PRN Reason: NEEDED PER PROVIDER ORDERS Last Admin: 02/12/20 06:54 Dose: 10 ml Documented by: Sodium Chloride (Normal Saline Flush 0.9%) 10 ml IVP 0100,0900,1700 [facility] Last Admin: 02/12/20 08:14 Dose: 10 ml Documented by: Dicyclomine [Bentyl] 10 mg PO QID PRN 02/11/20 Ondansetron [Ondansetron Odt] 8 mg TL Q6H PRN 02/11/20 Objective - Vital Signs/Intake & Output Vital Signs: Vital Signs x48h Temp Pulse Pulse Resp BP BP BP 02/12/20 10:13 120/74 02/12/20 09:43 148/110 H 02/12/20 09:41 148/110 H 02/12/20 08:07 187/114 H 02/12/20 07:27 37.2 C 67 15 204/109 H 02/12/20 04:50 37.4 C 51 L 16 115/59 L 02/12/20 02:29 54 L 16 115/59 L Pulse Ox 02/12/20 10:13 02/12/20 09:43 02/12/20 09:41 02/12/20 08:07 02/12/20 07:27 95 02/12/20 04:50 96 02/12/20 02:29 Intake & Output: Intake & Output 02/09/20 02/10/20 02/11/20 02/12/20 23:59 23:59 23:59 23:59 Intake Total 3073.333 880 Output Total 150 425 Balance 2923.333 455 - Objective General Appearance: positive: No acute distress, Alert. negative: Lethargic Eyes Bilateral: positive: Normal inspection, PERRL, No lid inflammation ENT: positive: ENT inspection nml, Pharynx nml, No signs of dehydration. negative: Purulent nasal drainage Neck: positive: Nml inspection, Thyroid nml, Trachea midline. negative: Thyromegaly, Stiff neck, Tracheal deviation Respiratory: positive: Chest non-tender, No respiratory distress, Breath sounds nml. negative: Wheezes, Rales, Rhonchi Cardiovascular: positive: Regular rate & rhythm, No murmur, No gallop. negative: Tachycardia, Bradycardia, Systolic murmur, Diastolic murmur Peripheral Pulses: 2+ Radial (R), 2+ Radial (L), 2+ Dorsalis pedis (R), 2+ Dorsalis pedis (L) Abdomen: positive: Non-tender, No organomegaly, Nml bowel sounds, No distention. negative: Tenderness, Guarding, Rebound Back: positive: Nml inspection Skin: positive: Color nml, No rash, Warm, Dry. negative: Cyanosis, Diaphoresis, Pallor Extremities: positive: Non-tender, Full ROM, Nml appearance. negative: Calf tenderness, Rachell's sign/cords Neurologic/Psychiatric: positive: Oriented x3, Motor nml, Sensation nml. negative: Weakness, Sensory loss, Facial droop, Slurred/abnml speech, Depressed mood/affect - Lab Results Fish Bones: 02/12/20 04:45 02/12/20 04:45 Other Labs: Lab Results x24hrs 02/12/20 02/12/20 02/11/20 Range/Units 04:45 04:45 14:40 WBC 8.8 6.4 (4.8-10.8) x10^3/uL RBC 5.60 6.93 H (4.70-6.10) 10^6/uL Hgb 15.8 20.1 H (14.0-18.0) g/dL Hct 47.6 58.8 H (42.0-52.0) % MCV 85.0 84.8 (80.0-94.0) fL MCH 28.2 29.0 (27.0-31.0) pg MCHC 33.2 34.2 (32.0-36.0) g/dL RDW 14.7 16.5 H (12.0-15.0) % Plt Count 282 343 (130-450) 10^3/uL MPV 9.5 9.4 (7.4-11.4) fL Neut # (Auto) 7.9 H 3.7 (1.5-6.6) 10^3/uL Lymph # (Auto) 0.5 L 1.8 (1.5-3.5) 10^3/uL [place] # (Auto) 0.3 0.8 (0.0-1.0) 10^3/uL Eos # (Auto) 0.0 0.0 (0.0-0.7) 10^3/uL Baso # (Auto) 0.0 0.0 (0.0-0.1) 10^3/uL Absolute Nucleated RBC 0.00 0.00 x10^3/uL Nucleated RBC % 0.0 0.0 /100WBC Sodium 140 (135-145) mmol/L Potassium 3.5 (3.5-5.0) mmol/L Chloride 102 (101-111) mmol/L Carbon Dioxide 26 (21-32) mmol/L Anion Gap 12.0 (6-13) BUN 33 H (6-20) mg/dL Creatinine 1.4 H (0.6-1.2) mg/dL Estimated GFR (MDRD) 68 L (>89) Glucose 125 H (70-100) mg/dL Calcium 9.4 (8.5-10.3) mg/dL Total Bilirubin (0.2-1.0) mg/dL AST (10-42) IU/L ALT (10-60) IU/L Alkaline Phosphatase (42-121) IU/L Total Protein (6.7-8.2) g/dL Albumin (3.2-5.5) g/dL Globulin (2.1-4.2) g/dL Albumin/Globulin Ratio (1.0-2.2) Lipase (22-51) U/L 02/11/20 Range/Units 14:40 WBC (4.8-10.8) x10^3/uL RBC (4.70-6.10) 10^6/uL Hgb (14.0-18.0) g/dL Hct (42.0-52.0) % MCV (80.0-94.0) fL MCH (27.0-31.0) pg MCHC (32.0-36.0) g/dL RDW (12.0-15.0) % Plt Count (130-450) 10^3/uL MPV (7.4-11.4) fL Neut # (Auto) (1.5-6.6) 10^3/uL Lymph # (Auto) (1.5-3.5) 10^3/uL [place] # (Auto) (0.0-1.0) 10^3/uL Eos # (Auto) (0.0-0.7) 10^3/uL Baso # (Auto) (0.0-0.1) 10^3/uL Absolute Nucleated RBC x10^3/uL Nucleated RBC % /100WBC Sodium 135 (135-145) mmol/L Potassium 3.0 L (3.5-5.0) mmol/L Chloride 89 L (101-111) mmol/L Carbon Dioxide 26 (21-32) mmol/L Anion Gap 20.0 H (6-13) BUN 33 H (6-20) mg/dL Creatinine 2.9 H (0.6-1.2) mg/dL Estimated GFR (MDRD) 30 L (>89) Glucose 171 H (70-100) mg/dL Calcium 10.9 H (8.5-10.3) mg/dL Total Bilirubin 1.4 H (0.2-1.0) mg/dL AST 26 (10-42) IU/L ALT 25 (10-60) IU/L Alkaline Phosphatase 91 (42-121) IU/L Total Protein 10.2 H (6.7-8.2) g/dL Albumin 6.3 H (3.2-5.5) g/dL Globulin 3.9 (2.1-4.2) g/dL Albumin/Globulin Ratio 1.6 (1.0-2.2) Lipase 47 (22-51) U/L ABX Reporting Has patient been on IV antibiotics over the past 48 hours?: No Assessment/Plan - Problem List (1) Acute kidney injury Impression: Improved, his creatinine is 1.4 on today, he had 2.9 on yesterday, anion gap Is down to the normal. continue aggressive intravenous hydration, continue avoid nephrotoxicity agent. Advised the patient keep the hydration special in summer. (2) Cannabinoid hyperemesis syndrome Conclusion/Plan: Patient has a history of cannabis Hyperemesis syndrome before. Patient denies he took cannabis recently. Today patient report he feel better, he denies nausea or vomiting, abdominal pain on today. We will continue hydration with intravenous, we will start with liquid diet for patient. (3) HTN (hypertension) Patient has history called white-coat hypertension. He has no home blood pressure medicine. his BP increased significantly even mild pain or walk, then SBP drop to normal by its own soon. Hydralazine as needed Lopressor as needed (4) Chronic pain syndrome Conclusion/Plan: Patient has a history of chronic pain, and waxes and wanes. he reported before the pain Is located at centered around his abdominal. Patient had extensive work-up with his GI and primary care, No significant finding was shown. continue try and use Tylenol, [place], avoid opiates. Encourage outpatient follow-up with the pain clinic after he establish himself with a primary care provider
[2020-02-12] MEDS: ACETAMINOPHEN 1,000 MG/100 ML 100 ML IV PRN (10:54)
[2020-02-12] MEDS ORDERED: haloperidoL 1 MG TABLET PO PRN (10:55)
[2020-02-12] MEDS ORDERED: LORazepam 0.5 MG TABLET PO PRN (10:55)
[2020-02-12] MEDS ORDERED: DICYCLOMINE 10 MG CAPSULE PO PRN (10:55)
[2020-02-12] MEDS ORDERED: LORazepam 2 MG/ML VIAL IVP PRN (10:58)
[2020-02-12 19:05] LABS: MUDS CUTOFF CONCENTRATIONS CUTOFF CONC BELOW:
[2020-02-12 19:30] LABS: AMPHETAMINE SCREEN,URINE NEGATIVE (NEGATIVE); BENZODIAZEPINES SCREEN, URINE NEGATIVE (NEGATIVE); COCAINE SCREEN URINE NEGATIVE (NEGATIVE); METHADONE SCREEN, URINE NEGATIVE (NEGATIVE); METHAMPHETAMINES SCREEN, URINE NEGATIVE (NEGATIVE); OPIATE SCREEN, URINE NEGATIVE (NEGATIVE); OXYCODONE SCREEN, URINE NEGATIVE (NEGATIVE); PROPOXYPHENE SCREEN, URINE NEGATIVE (NEGATIVE); TRICYCLIC ANTIDEPRESSANT,URINE NEGATIVE (NEGATIVE)
[2020-02-13] MEDS: SODIUM CHLORIDE 0.9% 1,000 ML IV SCH (03:52)
[2020-02-13] MEDS: PANTOPRAZOLE 40 MG VIAL IVP SCH (05:50)
[2020-02-13 05:51] LABS: BASOPHILS # (AUTO) 0.1 10^3/uL (0.0-0.1); BASOPHILS % (AUTO) 0.6 %; EOSINOPHILS # (AUTO) 0.1 10^3/uL (0.0-0.7); EOSINOPHILS % (AUTO) 1.2 %; HGB - HEMOGLOBIN 12.9 g/dL (14.0-18.0); LYMPHOCYTES # (AUTO) 2.6 10^3/uL (1.5-3.5); LYMPHOCYTES % (AUTO) 31.2 %; MEAN CORPUSCULAR HEMOGLOBIN 28.5 pg (27.0-31.0); MEAN CORPUSCULAR HGB CONC 32.1 g/dL (32.0-36.0); MEAN CORPUSCULAR VOLUME 88.9 fL (80.0-94.0); MEAN PLATELET VOLUME 9.9 fL (7.4-11.4); MONOCYTES % (AUTO) 11.6 %; NEUTROPHILS # (AUTO) 4.6 10^3/uL (1.5-6.6); NEUTROPHILS % (AUTO) 55.2 %; PLT - PLATELET COUNT 214 10^3/uL (130-450); RED BLOOD COUNT 4.52 10^6/uL (4.70-6.10); RED CELL DISTRIBUTION WIDTH 15.1 % (12.0-15.0); WHITE BLOOD COUNT 8.3 x10^3/uL (4.8-10.8)
[2020-02-13] MEDS: SODIUM CHLORIDE FLUSH 0.9% 10 ML SYRINGE IVP SCH (05:51)
[2020-02-13] MEDS: SODIUM CHLORIDE FLUSH 0.9% 10 ML SYRINGE IVP PRN (05:51)
[2020-02-13 05:57] LABS: CALCIUM 8.2 mg/dL (8.5-10.3)
[2020-02-13] MEDS: KETOROLAC 15 MG/ML VIAL IVP PRN ×2 (08:05→14:26)
[2020-02-13] MEDS: polyethylene glycoL 3350 17 GM PACKET PO SCH (08:06)
[2020-02-13] MEDS ORDERED: SODIUM CHLORIDE 0.9% 1,000 ML IV SCH ×2 (08:12→14:47)
[2020-02-13] MEDS: hydrALAZINE INJ 20 MG/ML VIAL IVP PRN (09:48)
[2020-02-13] MEDS: oxyCODONE 5 MG TABLET PO PRN ×2 (09:54→17:42)
[2020-02-13] MEDS: PROMETHAZINE 25 MG/1 ML VIAL IM PRN (11:08)
--- NOTE | 2020-02-13 15:37 | PROVIDER PROGRESS NOTE ---
Objective - Vital Signs/Intake & Output Vital Signs: Vital Signs x48h Temp Pulse Resp BP BP BP Pulse Ox 02/13/20 11:52 37.4 C 78 16 156/69 H 02/13/20 11:11 186/94 H 02/13/20 10:45 87 199/120 H 02/13/20 10:30 75 193/112 H 02/13/20 10:18 184/94 H 02/13/20 10:16 90 184/94 H 02/13/20 10:15 82 180/97 H 02/13/20 10:10 72 189/91 H 02/13/20 10:05 70 175/101 H 02/13/20 09:58 73 175/90 H 02/13/20 09:48 207/113 H 02/13/20 09:40 77 216/121 H 02/13/20 09:35 70 206/115 H 02/13/20 08:17 37.1 C 58 L 16 207/113 H 99 Intake & Output: Intake & Output 02/10/20 02/11/20 02/12/20 02/13/20 23:59 23:59 23:59 23:59 Intake Total 3073.333 3520 3065 Output Total 150 1095 350 Balance 2923.333 2425 2715 - Lab Results Fish Bones: 02/13/20 05:25 02/13/20 05:25 Other Labs: Lab Results x24hrs 02/13/20 02/13/20 02/12/20 Range/Units 05:25 05:25 18:50 WBC 8.3 (4.8-10.8) x10^3/uL RBC 4.52 L (4.70-6.10) 10^6/uL Hgb 12.9 L (14.0-18.0) g/dL Hct 40.2 L (42.0-52.0) % MCV 88.9 (80.0-94.0) fL MCH 28.5 (27.0-31.0) pg MCHC 32.1 (32.0-36.0) g/dL RDW 15.1 H (12.0-15.0) % Plt Count 214 (130-450) 10^3/uL MPV 9.9 (7.4-11.4) fL Neut # (Auto) 4.6 (1.5-6.6) 10^3/uL Lymph # (Auto) 2.6 (1.5-3.5) 10^3/uL [place] # (Auto) 1.0 (0.0-1.0) 10^3/uL Eos # (Auto) 0.1 (0.0-0.7) 10^3/uL Baso # (Auto) 0.1 (0.0-0.1) 10^3/uL Absolute Nucleated RBC 0.00 x10^3/uL Nucleated RBC % 0.0 /100WBC Sodium 136 (135-145) mmol/L Potassium 3.5 (3.5-5.0) mmol/L Chloride 102 (101-111) mmol/L Carbon Dioxide 27 (21-32) mmol/L Anion Gap 7.0 (6-13) BUN 29 H (6-20) mg/dL Creatinine 1.0 (0.6-1.2) mg/dL Estimated GFR (MDRD) 101 (>89) Glucose 88 (70-100) mg/dL Calcium 8.2 L (8.5-10.3) mg/dL Urine Opiates Screen NEGATIVE (NEGATIVE) Ur Oxycodone Screen NEGATIVE (NEGATIVE) Urine Methadone Screen NEGATIVE (NEGATIVE) Ur Propoxyphene Screen NEGATIVE (NEGATIVE) Ur Barbiturates Screen NEGATIVE (NEGATIVE) Ur Tricyclics Screen NEGATIVE (NEGATIVE) Ur Phencyclidine Scrn NEGATIVE (NEGATIVE) Ur Amphetamine Screen NEGATIVE (NEGATIVE) U Methamphetamines Scrn NEGATIVE (NEGATIVE) U Benzodiazepines Scrn NEGATIVE (NEGATIVE) Urine Cocaine Screen NEGATIVE (NEGATIVE) U Cannabinoids Screen POSITIVE H (NEGATIVE) Assessment/Plan - Problem List (1) Nausea & vomiting Impression: 02/12 pt complain N/V and abdominal pain again. will resume pt's home pain meds, resume bowel rest with clear diet, continue IVF. it is likely caused by Cannabinoid hyperemesis syndrome. pt's UDS reveals positive for cannabinoid, although pt denied. educate pt it is likely the cause, advise pt quit cannabinoid. pt did agree and state he will never smoke it again. Patient has a history of cannabis Hyperemesis syndrome before. Patient denies he took cannabis recently. Today patient report he feel better, he denies nausea or vomiting, abdominal pain on today. We will continue hydration with intravenous, we will start with liquid diet for patient. Patient had multiple imaging studies and consult with GI before, all came back unremarkable. (2) Acute kidney injury Impression: 02/12 resolved, Patient creatinine is 1.01 today,Educated patient keep hydration in the home After discharge. Improved, his creatinine is 1.4 on today, he had 2.9 on yesterday, anion gap Is down to the normal. continue aggressive intravenous hydration, continue avoid nephrotoxicity agent. Advised the patient keep the hydration special in summer. (3) HTN (hypertension) 02/12 When patient has symptoms of nausea, vomiting or abdominal pain, His blood pressure increases significantly, this happened in the before admission. We will resume home pain medication, continue hydralazine, clonidine PRN. Patient has history called white-coat hypertension. He has no home blood pressure medicine. his BP increased significantly even mild pain or walk, then SBP drop to normal by its own soon. Hydralazine as needed Lopressor as needed (4) Chronic pain syndrome Conclusion/Plan: 729, we will resume patient home pain medication, Advised patient follow-up with pain clinic as out-patient Patient has a history of chronic pain, and waxes and wanes. he reported before the pain Is located at centered around his abdominal. Patient had extensive work-up with his GI and primary care, No significant finding was shown. continue try and use Tylenol, [place], avoid opiates. Encourage outpatient follow-up with the pain clinic after he establish himself with a primary care provider
--- NOTE | 2020-02-13 17:05 | Discharge Plan ---
Discharge Plan Problem Reviewed?: Yes Disposition: Home, Self Care Condition: Stable Diet: Regular Activity Restrictions: Activity as Tolerated Shower Restrictions: No (fall precaution) Instruction Topics: Dehydration Health Concerns: LAZARO, cannabis Hyperemesis syndrome Plan of Treatment: you present acute kidney injury at the admission, advise you keep hydration at home. Now you report you has no nausea or vomiting and your abdominal pain is controlled and you tolerated your diet. you request to be d/c on today. you present cannabis Hyperemesis symptoms for multiple admission, advise you quit cannabis. Care Goals: stabilization and improvement of your medical conditions. Assessment: discussed with care plan with you , you understood and agreed. Additional Instructions or Follow Up instructions: you may followup with your PCP in one to two weeks. Should your symptoms return or worsen, you may present ER or call 911 for help. No Smoking: If you smoke, Please STOP! Call for help.
--- NOTE | 2020-02-13 17:13 | DISCHARGE SUMMARY ---
Discharge Summary Admit Date: 02/11/20 Discharge Date: 02/13/20 Discharging Provider: Kane Reyez Primary Care Provider: Jagjit Ramires Condition at Discharge: Stable Discharge Disposition: 01 Home, Self Care Discharge Facility Name: home - DIAGNOSES Discharge Diagnoses with Status of Each Condition: (1) Acute kidney injury resolved. his creatinine as his baseline 1.0 now. advise pt keep hydration at home. (2) Cannabinoid hyperemesis syndrome pt's nausea or vomiting were resolved. his abdominal pain was under controlled. pt had regular diet. pt strongly request to be d/c to home today. although pt denied he took cannabinoid but his UDS is positive for cannabinoid. discussed and educated pt about cannabinoid hyperemesis syndrome, advise quit cannabinoid usage. pt agreed. (3) HTN (hypertension) Patient has a history called white-coat hypertension. He has no home blood pressure medicine. his BP increased significantly even mild pain or walk, then SBP drop to normal by its own soon. (4) Chronic pain syndrome resume home Pain management regimen and follow-up with his PCP when I try to finish the discharge summary, I found pt had BP at 179/99, and temperature at 37.6 degree. nurse never told me pt had this vital sign before pt left hospital. when I put discharge order, pt's BP is 115/54, and 37.5 degree temperature which was considered normal arrange. I report this condition to today nurse stock control supervisor. I call Javi Mcbride on today 3:30 pm at [phone] to ask how he is doing. he is at his home and turkey picker my phone. he denies fever, chill, cough, chest pain, headache. he still report some nausea but he can manage it now. I advise he quit cannabinoid, he agree, and advise he may come to ER if his symptoms worsen, he agree. - HPI History of Present Illness: refer from Dr. Long's HPI on 02/11/2020 The patient is an unfortunate black male who has had intermittent left upper quadrant pain since 2007. At that time he was drinking close to 12 beers a day and was diagnosed as having alcoholic pancreatitis. He had no further episodes of abdominal pain or pancreatitis until 2014. Starting in 2014 into 2016 he had minimal disease activity. However, starting in March 2017 he has had multiple admissions for nausea, vomiting, and abdominal pain. He has been seen by director telehealth at [facility]. He does not remember the name of that director telehealth but in review of the records that was Dr. Miller. That was in 2019. Over the course of time from 2017 onward, he has had retroperitoneal ultrasounds to rule out urinary obstruction. Multiple CTs of the abdomen that occasionally show some faint stranding around the mesentery of his that is around his pancreas. MRCP has been negative for ductal dilatation. EGD has been negative for the cause of his epigastric pain.He has been seen by general surgery. They reviewed the chart and felt that he may have pancreatitis of unknown etiology. EGD, colonoscopy, MRCP, CTs of the abdomen were all rev iewed by the surgeon in 2017. He also recommended follow-up with gastroenterology. He does smoke cannabis. He does endorse the fact that when he smokes, and he is at home with this pain, getting in the shower will help that pain quite a bit. But he is adamant that he does not have cyclical vomiting. He states "there only 6 cases of this nationwide". He is unhappy that we are "treating him for this" when he feels that that is not his diagnosis. With his episodes of abdominal pain, nausea and vomiting, he has had intermittent acute kidney injury from dehydration. The highest his creatinine is gotten was in September 2019 when he was 3.7. He was seen in December of this year for the same problem and creatinine was 2.1 and came down to 1.4. At discharge is 1.1. He now presents to our emergency room with 3 days of the same upper abdominal pain that he always has but getting worse. The vomiting is uncontrollable. Pain is severe. It is in the epigastric region. It is nonradiating. No change in position makes it better.Food does not make it better. Having a bowel movement does not make it better. Again, getting in the shower does help.There is no blood in his stool, no blood in his emesis. He denies fever, chills.There is no change in the color of his urine. There is no change in the color of his stool. There is no diarrhea. In the emergency room he was evaluated by Dr. Lee. Afebrile, slightly tachycardic at 114, blood pressure 174/131. Repeat blood pressure was 211/143. He was 99% on room air. Dr. Morton did not repeat CTs of the abdomen, chest x- ray since many of these have been done before. White cell count was normal at 6.4. Hemoglobin is newly elevated at 20.1. In December he was 16.8. He is hypokalemic with a potassium of 3.0. Anion gap is high at 20. BUN 33, creatinine 2.9. Glucose 171. Calcium newly elevated at 10.9, total bili 1.4. The rest of his liver enzymes are normal. Total protein 10.2. Albumin 6.3. In the past toxicology screens have been positive for cannabis on a regular basis. Alcohol levels of 0. No other substances noted on tox screen other than occasional oxycodone. He is now admitted for recurrent episode of abdominal pain with nausea and vomiting, and acute kidney injury from dehydration. In the emergency room he is received Haldol, Toradol, lactated Ringer's, GI cocktail, Reglan, and acetaminophen. - HOSPITAL COURSE Hospital Course: Patient was admitted for nausea, vomiting and Intermittent abdominal pain. Patient was also found to have acute kidney injury. Patient was treated with intravenous IV fluids, bowel rest, laboratory monitoring and vital signs monitor . After treatment, He is creatinine become 1.0 as his base line. Patient reported his nausea, vomiting and abdominal pain were controlled and he was strongly requesting discharge to home. Patient was advised to keep hydration in the home, quit marijuana, And resume his home medication regiment. - ALLERGIES Allergies/Adverse Reactions: Allergies Allergy/AdvReac Type Severity Reaction Status Date / Time morphine Allergy Unknown Verified 01/01/20 07:30 - MEDICATIONS Home Medications: Ambulatory Orders Medication Instructions Recorded Confirmed LORazepam [Ativan] 0.5 mg PO BID PRN 5 Days #10 tablet 11/14/19 02/11/20 haloperidoL [Haldol] 2 mg PO Q8HR PRN #10 tablet 11/18/19 02/11/20 Promethazine Supp [Phenergan Supp] 25 mg [place] Q6H PRN #10 supp 12/24/19 02/11/20 oxyCODONE [Roxicodone] 5 mg PO Q6HR PRN #10 tablet 12/29/19 02/11/20 Dicyclomine [Bentyl] 10 mg PO QID PRN 02/11/20 02/11/20 Ondansetron [Ondansetron Odt] 8 mg TL Q6H PRN 02/11/20 02/11/20 - PHYSICAL EXAM AT DISCHARGE General Appearance: positive: No acute distress, Alert. negative: Lethargic Eyes Bilateral: positive: Normal inspection, PERRL, No lid inflammation ENT: positive: ENT inspection nml, Pharynx nml, No signs of dehydration. negative: Purulent nasal drainage Neck: positive: Nml inspection, Thyroid nml, No JVD, Trachea midline. negative: Thyromegaly, Stiff neck, Tracheal deviation Respiratory: positive: Chest non-tender, No respiratory distress, Breath sounds nml. negative: Wheezes, Rales, Rhonchi Cardiovascular: positive: Regular rate & rhythm, No murmur, No gallop. negative: Tachycardia, Bradycardia, Systolic murmur, Diastolic murmur Peripheral Pulses: positive: 2+ Abdomen: positive: Non-tender, No organomegaly, Nml bowel sounds, No distention. negative: Tenderness, Guarding, Rebound Back: positive: Nml inspection. negative: CVA tenderness (R), CVA tenderness (L) Skin: positive: Color nml, No rash, Warm, Dry. negative: Cyanosis, Diaphoresis, Pallor Extremities: positive: Non-tender, Full ROM, Nml appearance. negative: Calf tenderness, Rachell's sign/cords Neurologic/Psychiatric: positive: Oriented x3, Motor nml, Sensation nml, Mood/affect nml. negative: Weakness, Sensory loss, Facial droop, Slurred/abnml speech - LABS Result Diagrams: 02/13/20 05:25 02/13/20 05:25 - FOLLOW UP Follow Up: you present acute kidney injury at the admission, advise you keep hydration at home. Now you report you has no nausea or vomiting and your abdominal pain is controlled and you tolerated your diet. you request to be d/c on today. you present cannabis Hyperemesis symptoms for multiple admission, advise you quit cannabis. you may followup with your PCP in one to two weeks. Should your symptoms return or worsen, you may present ER or call 911 for help. - TIME SPENT Time Spent in Discharge (Minutes): 30
[2020-02-13 18:42] VITALS: BP 179/99
[2020-02-14] MEDS ORDERED: PANTOPRAZOLE 40 MG TABLET PO SCH (07:00)
== END 2020-02-13 18:50 | disposition home or self-care (01) | DRG 684 ==
LOC: EDUNIT# → ED 14:37 → MS2 15:38 → OBSVTOIN 02-13 14:44
PROVIDERS: ADMIT Specialist; ATTEND Nurse Practitioner Gerontology
DX: N17.9 Acute kidney failure, unspecified (principal); R11.2 Nausea with vomiting, unspecified; F12.99 Cannabis use, unspecified with unspecified cannabis-induced disorder; E86.0 Dehydration; G89.4 Chronic pain syndrome; I10 Essential (primary) hypertension; E87.6 Hypokalemia; R10.13 Epigastric pain; F12.90 Cannabis use, unspecified, uncomplicated
CPT/HCPCS: 36415; 80048; 80053; 80306; 83690; 85025; 96361; 96365; 96366; 96367; 96372; 96375; 96376; 99285; A9270; G0378; J0131; J2765; J7120; Q0162

== ENCOUNTER 2020-03-26 23:06 | Outpatient (CLI) | payer MEDICAID | END 2020-03-26 23:07 | disposition critical access hospital (66) | LOC: EMS 23:06 | PROVIDERS: ATTEND Surgery | DX: R10.9 Unspecified abdominal pain (principal); R11.2 Nausea with vomiting, unspecified | CPT/HCPCS: A0425; A0429 ==

== ENCOUNTER 2020-03-26 23:39 | Emergency (ER) | payer MEDICAID ==
--- NOTE | 2020-03-26 23:43 | ED Physician Documentation ---
History of Present Illness - Stated complaint Stated Complaint: VOMITING, ABD CRAMPING - History obtained from History obtained from: Patient - Additonal information Additional information: 39-year-old male with a history of hyperemesis cannabinoid syndrome and chronic abdominal pain presents tonight with what he describes as his usual symptoms of nausea vomiting and chronic abdominal pain denies fevers or any new symptoms. Review of Systems Constitutional: reports: Reviewed and negative Eyes: reports: Reviewed and negative Ears: reports: Reviewed and negative Nose: reports: Reviewed and negative Throat: reports: Reviewed and negative Cardiac: reports: Reviewed and negative Respiratory: reports: Reviewed and negative GI: reports: Nausea, Vomiting : reports: Reviewed and negative Skin: reports: Reviewed and negative Musculoskeletal: reports: Reviewed and negative Neurologic: reports: Reviewed and negative Psychiatric: reports: Reviewed and negative Endocrine: reports: Reviewed and negative Immunocompromised: reports: Reviewed and negative PD PAST MEDICAL HISTORY - Past Medical History Cardiovascular: Hypertension Respiratory: None Neuro: None Endocrine/Autoimmune: None GI: GERD, Ulcers, Pancreatitis : None HEENT: None Psych: Depression, Anxiety, Panic attacks, Other Musculoskeletal: None Derm: None - Past Surgical History Past Surgical History: No Ortho: Other - Present Medications Home Medications: Ambulatory Orders Medication Instructions Recorded Confirmed LORazepam [Ativan] 0.5 mg PO BID PRN 5 Days #10 tablet 11/14/19 02/11/20 haloperidoL [Haldol] 2 mg PO Q8HR PRN #10 tablet 11/18/19 02/11/20 Promethazine Supp [Phenergan Supp] 25 mg [place] Q6H PRN #10 supp 12/24/19 02/11/20 oxyCODONE [Roxicodone] 5 mg PO Q6HR PRN #10 tablet 12/29/19 02/11/20 Dicyclomine [Bentyl] 10 mg PO QID PRN 02/11/20 02/11/20 Ondansetron [Ondansetron Odt] 8 mg TL Q6H PRN 02/11/20 02/11/20 - Allergies Allergies/Adverse Reactions: Allergies Allergy/AdvReac Type Severity Reaction Status Date / Time morphine Allergy Unknown Verified 03/26/20 23:48 - Social History Does the pt smoke?: No Smoking Status: Never smoker Does the pt drink ETOH?: No Does the pt have substance abuse?: Yes - Immunizations Immunizations are current?: No Immunizations: Other immun not current - POLST Patient has POLST: No POLST Status: Full Code PD ED PE NORMAL - Vitals Vital signs reviewed: Yes - General General: Alert and oriented X 3, No acute distress, Well developed/nourished - HEENT HEENT: PERRL - Neck Neck: Supple, no meningeal sign - Cardiac Cardiac: RRR, No murmur, Strong equal pulses - Respiratory Respiratory: Clear bilaterally - Abdomen Abdomen: Normal bowel sounds, Soft, Non tender, Non distended, No organomegaly - Derm Derm: Warm and dry - Extremities Extremities: No deformity - Neuro Neuro: Alert and oriented X 3, workshop manager 2-12 intact, No motor deficit, No sensory deficit, Normal speech - Psych Psych: Normal mood, Normal affect Results - Vitals Vitals: Vital Signs - 24 hr 03/26/20 03/27/20 03/27/20 23:44 00:35 01:07 Temperature 37.3 C Heart Rate 88 61 Respiratory 16 19 16 Rate Blood Pressure 152/127 H 156/135 H O2 Saturation 96 96 96 03/27/20 02:00 Temperature Heart Rate Respiratory 16 Rate Blood Pressure 135/97 H O2 Saturation 96 Oxygen O2 Source Room air PD MEDICAL DECISION MAKING - ED course Complexity details: d/w patient ED course: 39-year-old male with chronic abdominal pain with hyperemesis Syndrome. Presents today with unremarkable vital signs exam shows him to have a soft abdomen he was treated with intramuscular Haldol and observed for approximately 2 and half hours his symptoms have resolved completely he is tolerated p.o. challenge and like to be discharged home. Departure - Departure Disposition: 01 Home, Self Care Clinical Impression: Cannabinoid hyperemesis syndrome Condition: Stable Instructions: Abdominal Pain, ED Nausea Vomiting Follow-Up: CLARA LOGAN MD [Primary Care Provider] - 03/27/20 Comments: follow up with your primary care provider today. Discharge Date/Time: 03/27/20 02:01
[2020-03-26] MEDS ORDERED: HALOPERIDOL 5 MG/ML VIAL IM STA (23:45)
[2020-03-27 02:01] VITALS: BP 135/97
== END 2020-03-27 02:01 | disposition home or self-care (01) ==
LOC: ED 23:39
DX: F12.988 Cannabis use, unspecified with other cannabis-induced disorder (principal); R11.10 Vomiting, unspecified
CPT/HCPCS: 96372; 99283; 99284

== ENCOUNTER 2020-03-28 14:37 | Inpatient (IN) | payer MEDICAID ==
[2020-03-28] MEDS ORDERED: FOLIC ACID INJ 1 MG, THIAMINE INJ 100 MG, MAGNESIUM SULFATE 2 GM, MULTIVITAMIN 10 ML in... IV STA ×5 (15:10)
--- NOTE | 2020-03-28 15:17 | ED Physician Documentation ---
PD HPI NVD - Stated complaint Stated Complaint: ABD PX/BACK PX - Chief complaint Chief Complaint: Abd Pain - History obtained from History obtained from: Patient - History of Present Illness Timing - onset: How many days ago (4) Timing - duration: Days (4) Timing - details: Gradual onset, Still present Associated symptoms: Abdominal pain, Dizzy Contributing factors: Other (cannabis hyperemesis) Improved by: Vomiting Worsened by: Eating Similar symptoms before: Diagnosis (canabis hyperemesis, pancreatitis, PUD) Recently seen: Emergency Dept - Additonal information Additional information: 39-year-old male well-known to this emergency department with a history of cannabis hyperemesis has developed symptoms again about 4 days ago. He was seen in the emerge department 2 days ago given a shot of Haldol IM and had resolution of symptoms and was sent home. He states that he has not been able to keep anything down this course of fluids or food for the past 4 days. He comes in today with complaints of general abdominal pain and back pain. Review of Systems Constitutional: denies: Fever Eyes: denies: Decreased vision Ears: denies: Ear pain Nose: denies: Congestion Throat: denies: Sore throat Cardiac: denies: Chest pain / pressure, Palpitations Respiratory: denies: Dyspnea, Cough GI: reports: Abdominal Pain, Nausea, Vomiting : denies: Dysuria, Frequency Skin: denies: Rash Musculoskeletal: reports: Back pain. denies: Neck pain, Extremity pain Neurologic: reports: Generalized weakness. denies: Focal weakness, Numbness PD PAST MEDICAL HISTORY - Past Medical History Cardiovascular: Hypertension Respiratory: None Neuro: None Endocrine/Autoimmune: None GI: GERD, Ulcers, Pancreatitis : None HEENT: None Psych: Depression, Anxiety, Panic attacks, Other Musculoskeletal: None Derm: None - Past Surgical History Past Surgical History: No Ortho: Other - Present Medications Home Medications: Ambulatory Orders Medication Instructions Recorded Confirmed LORazepam [Ativan] 0.5 mg PO BID PRN 5 Days #10 tablet 11/14/19 02/11/20 haloperidoL [Haldol] 2 mg PO Q8HR PRN #10 tablet 11/18/19 02/11/20 Promethazine Supp [Phenergan Supp] 25 mg [place] Q6H PRN #10 supp 12/24/19 02/11/20 oxyCODONE [Roxicodone] 5 mg PO Q6HR PRN #10 tablet 12/29/19 02/11/20 Dicyclomine [Bentyl] 10 mg PO QID PRN 02/11/20 02/11/20 Ondansetron [Ondansetron Odt] 8 mg TL Q6H PRN 02/11/20 02/11/20 - Allergies Allergies/Adverse Reactions: Allergies Allergy/AdvReac Type Severity Reaction Status Date / Time morphine Allergy Unknown Verified 03/26/20 23:48 - Social History Does the pt smoke?: Yes Smoking Status: Current every day smoker Does the pt drink ETOH?: Yes Does the pt have substance abuse?: Yes Substance Use and Type: Marijuana - Immunizations Immunizations are current?: Yes Immunizations: Other immun not current - POLST Patient has POLST: No POLST Status: Full Code PD ED PE NORMAL - Vitals Vital signs reviewed: Yes (Hypertensive marked) - General General: Alert and oriented X 3, Well developed/nourished, Other (Appears to be in pain with stock parts fabricator tone and flattened affect) - HEENT HEENT: Atraumatic, PERRL, EOMI - Neck Neck: Supple, no meningeal sign, No bony TTP - Cardiac Cardiac: RRR, No murmur - Respiratory Respiratory: No respiratory distress, Clear bilaterally - Abdomen Abdomen: Soft, Other (scaffoid with general tenderness without garding or rebound tenderness. ) - Back Back: No CVA TTP, No spinal TTP - Derm Derm: Normal color, Warm and dry, No rash - Extremities Extremities: No deformity, No edema - Neuro Neuro: Alert and oriented X 3, offbearer 2-12 intact, No motor deficit, No sensory deficit, Normal speech Eye Opening: Spontaneous Motor: Obeys Commands Verbal: Oriented GCS Score: 15 - Psych Psych: Other (mood is defeated affect is flat) Results - Vitals Vitals: Vital Signs - 24 hr 03/28/20 03/28/20 14:45 15:03 Temperature 36.6 C Heart Rate 97 88 Respiratory 14 18 Rate Blood Pressure 211/145 H 157/113 H O2 Saturation 95 94 Oxygen O2 Source Room air - Labs Labs: Laboratory Tests 03/28/20 03/28/20 03/28/20 15:15 15:15 15:15 WBC 16.9 H RBC 6.70 H Hgb 19.5 H Hct 55.1 H MCV 82.2 MCH 29.1 MCHC 35.4 RDW 14.6 Plt Count 352 MPV 9.5 Neut # (Auto) 14.5 H Lymph # (Auto) 0.9 L [place] # (Auto) 1.3 H Eos # (Auto) 0.0 Baso # (Auto) 0.1 Absolute Nucleated RBC 0.00 Nucleated RBC % 0.0 Sodium 128 L Potassium 3.6 Chloride 85 L Carbon Dioxide 25 Anion Gap 18.0 H BUN 64 H Creatinine 3.9 H Estimated GFR (MDRD) 21 L Glucose 134 H Lactic Acid 1.8 Calcium 10.4 H Total Bilirubin 1.3 H AST 45 H ALT 30 Alkaline Phosphatase 78 Total Protein 9.2 H Albumin 5.7 H Globulin 3.5 Albumin/Globulin Ratio 1.6 Lipase 61 H Procedures - IVC sono (time) 1510 Bedside IVC sono: IVC measures (cm) (0.65), IVC collapsed c insp (cm) (complete), Profound dehydration (est 3 liter deficit) PD MEDICAL DECISION MAKING - ED course Complexity details: reviewed results, re-evaluated patient, considered differential, d/w patient, d/w family ED course: 39-year-old male with a history of cannabis hyperemesis syndrome was given Haldol 2 days ago he was not able to hold down water with this and he has become profoundly dehydrated. I suspect most of his symptoms now are related to dehydration and IV fluids were begun he is given a banana bag wide open and his electrolytes and blood counts were checked.He does demonstrate acute kidney injury related to his dehydration he has had this previously this is as bad as he is ever had it.I have recommended hospitalization to the patient and he readily accepts. Dr. Solis is consulted in the case and graciously agrees to care for the patient in the hospital. Departure - Departure Disposition: 66 [facility] DC/Xfer Clinical Impression: Acute kidney injury, Dehydration, Cannabis hyperemesis syndrome concurrent with and due to cannabis abuse
[2020-03-28 15:23] LABS: BASOPHILS # (AUTO) 0.1 10^3/uL (0.0-0.1); BASOPHILS % (AUTO) 0.4 %; EOSINOPHILS % (AUTO) 0.1 %; HGB - HEMOGLOBIN 19.5 g/dL (14.0-18.0); LYMPHOCYTES # (AUTO) 0.9 10^3/uL (1.5-3.5); LYMPHOCYTES % (AUTO) 5.3 %; MEAN CORPUSCULAR HEMOGLOBIN 29.1 pg (27.0-31.0); MEAN CORPUSCULAR HGB CONC 35.4 g/dL (32.0-36.0); MEAN CORPUSCULAR VOLUME 82.2 fL (80.0-94.0); MEAN PLATELET VOLUME 9.5 fL (7.4-11.4); MONOCYTES # (AUTO) 1.3 10^3/uL (0.0-1.0); MONOCYTES % (AUTO) 7.5 %; NEUTROPHILS # (AUTO) 14.5 10^3/uL (1.5-6.6); PLT - PLATELET COUNT 352 10^3/uL (130-450); RED CELL DISTRIBUTION WIDTH 14.6 % (12.0-15.0); WHITE BLOOD COUNT 16.9 x10^3/uL (4.8-10.8)
[2020-03-28 15:36] LABS: ALBUMIN 5.7 g/dL (3.2-5.5); ALBUMIN/GLOBULIN RATIO 1.6 (1.0-2.2); BILIRUBIN,TOTAL 1.3 mg/dL (0.2-1.0); CALCIUM 10.4 mg/dL (8.5-10.3); CREATININE 3.9 mg/dL (0.6-1.2); TOTAL PROTEIN 9.2 g/dL (6.7-8.2)
[2020-03-28] MEDS ORDERED: HYDROmorphone 1 MG/ML CARPUJECT IVP STA (15:48)
[2020-03-28] MEDS ORDERED: ONDANSETRON 4 MG/2 ML VIAL IVP STA (15:48)
[2020-03-28] MEDS ORDERED: DEXTROSE 5%-0.9% NACL 1,000 ML IV SCH (17:00)
[2020-03-28] MEDS ORDERED: METOCLOPRAMIDE 10 MG/2 ML VIAL IVP PRN (17:11)
[2020-03-28] MEDS: SODIUM CHLORIDE FLUSH 0.9% 10 ML SYRINGE IVP SCH (17:38)
[2020-03-28] MEDS: SODIUM CHLORIDE FLUSH 0.9% 10 ML SYRINGE IVP PRN (17:45)
[2020-03-28] MEDS: PANTOPRAZOLE 40 MG VIAL IVP SCH (17:45)
[2020-03-28 18:45] LABS: MUDS CUTOFF CONCENTRATIONS CUTOFF CONC BELOW:
[2020-03-28 18:51] LABS: BILIRUBIN,URINE NEGATIVE (NEGATIVE); GLUCOSE, URINE (UA) NEGATIVE (NEGATIVE); KETONES,URINE (UA) NEGATIVE (NEGATIVE); LEUKOCYTE ESTERASE, URINE NEGATIVE (NEGATIVE); NITRITE,URINE NEGATIVE (NEGATIVE); OCCULT BLOOD,URINE TRACE-INTA (NEGATIVE); PH,URINE 5.5 PH (5.0-7.5); PROTEIN,URINE TRACE mg/dL (NEGATIVE); UROBILINOGEN,URINE 0.2 (NORMAL) E.U./dL (NORMAL)
[2020-03-28 18:53] LABS: CLARITY,URINE SL. CLOUDY (CLEAR)
--- NOTE | 2020-03-28 18:55 | HISTORY & PHYSICAL EXAMINATION ---
DATE OF SERVICE: 03/28/2020 Physician: Nena Solis MD HISTORY OF PRESENT ILLNESS: This is a 39-year-old black man who has a history of chronic intermittent left upper quadrant or diffuse abdominal pain since 2007. He had a diagnosis of alcoholic pancreatitis when he had alcohol abuse, drinking close to 12 beers a day. He had a relatively stable course from 2014- 2016; then started having recurrent and frequent admissions multiple times a year: 03/2017, 04/2017, 05/2017, 10/2017, twice in 11/2017, twice in 01/2018, 07/2018, 04/2019, 09/2019, 12/2019. 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 He does not know the diagnosis that was given to him by the weigher alloy. He presents to the emergency room frequently with cyclical nausea and vomiting, intractable often following marijuana use. With the vomiting, he gets left upper quadrant abdominal pain. He requires admissions for IV fluids for dehydration and LAZARO. There have been again increases and amylase consistent with pancreatitis in the recent past. He has had numerous CTs of the abdomen, a few times. They showed pancreatic fat stranding. MRCP has been negative for ductal dilatation. He has had EGD and colonoscopy. He recently had a retroperitoneal ultrasound to evaluate the kidneys associated with nausea and vomiting, but this was negative. He has been seen by general surgery here for consultations in our hospital. We have recommended that he be seen by Gastroenterology, but this is too far for him to travel. He was last here in 12/2019 with nausea and vomiting, abdominal pain, LAZARO with a creatinine of 2.1 that required IV hydration, replacement of potassium and treating his symptoms with antiemetics and pain medication. The patient was here approximately 3 days ago for similar nausea and vomiting and received a dose of Haldol, which has helped subside his symptoms and he was discharged from the ER. He does state that he could not take in food or water, however, over those 3 days and presents today with complaints of weakness. In the ER now, his labs are showing a creatinine of 3.9, which is the highest he has ever had at this hospital, and has rhabdomyolysis with a CK of 880. He is in pain and has poorly controlled blood pressure. The patient does have a history of hypertension, but presumably related to the amount of pain he has, since he takes no meds for HTN. The patient is being admitted for management of recurrent incessant nausea and vomiting, abdominal pain, dehydration, rhabdomyolysis and acute kidney injury. PAST MEDICAL HISTORY: Chronic abdominal pain, alcoholic pancreatitis in the past, cyclical nausea and vomiting, many associated with marijuana use, Hx of prior dehydration and LAZARO on previous admissions. ALLERGIES: MORPHINE WITH AN UNKNOWN SIDE EFFECT. MEDICATIONS 1. Bentyl, unknown dose p.r.n. 2. Lorazepam 0.5 mg, unknown frequency. 3. Zofran sublingual p.r.n. 4. Oxycodone 5 mg, unknown frequency. 5. Phenergan, unknown dose p.r.n. FAMILY HISTORY: Mother has hypertension, father has hypertension and renal disease and other family members have mental illness. There is also history of obesity, hypertension, arthritis and aortic dissection at the age of 50 in his mother. One brother had a bicuspid aortic valve and aneurysm. SOCIAL HISTORY: The patient is unmarried. He does have six children with several mother's. 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 He currently works in [employer]. He lives with his mother. SOCIAL HISTORY: He intermittently has heavy alcohol use. He does use cannabis and smokes cigarettes. He denies IV drug use and denies cocaine, heroin, LSD, or meth. REVIEW OF SYSTEMS: There has been no fever, diarrhea. A comprehensive review of systems was performed and the pertinent positives are listed, the rest are negative. PHYSICAL EXAM: GENERAL: Black male who appears older than his stated age, in mild distress from pain. VITAL SIGNS: Blood pressure 181/120, heart rate 70 in sinus rhythm, room air saturation 95%. HEENT: Reveals dry oral mucosa. NECK: Without JVD. LUNGS: Clear. HEART: Normal heart sounds. ABDOMEN: Scaphoid, tender to light touch. No guarding or rebound. Decreased bowel sounds. No organomegaly. EXTREMITIES: No clubbing, cyanosis or edema. NEUROLOGIC: Grossly intact. LABORATORY DATA Sodium 128, potassium 3.6, BUN 64, creatinine 3.9 (his normal creatinine is 1.1). Lactic acid currently 1.8. Calcium 10.4 with albumin of 5.7 that is normal. Bilirubin 1.3, AST 45, ALT 30. CK 881. Lipase 61. White blood count 60.9, hemoglobin 19.5, platelet count normal at 352. No INR was done. No chest x-ray was done. No EKG was done. IMPRESSION/DIAGNOSES 1. Acute kidney injury. 2. Dehydration. 3. Intractable nausea and vomiting. 4. Abdominal pain. 5. Hypocalcemia. 6. Hyponatremia. 7. Marijuana use. 8. Hypertension, poorly controlled. 9. Rhabdomyolysis. 10. Elevated Lipase level. PLAN: Admit the patient to inpatient status. Begin IV hydration with Y3Xylran saline and follow BMP and magnesium daily. Correct calcium with replacement and follow this daily. Give antiemetics, and pain medications. We will try Haldol again if this does give him relief from the nausea. Treat hypertension with p.r.n. iv hydralazine. Give bowel rest with just ice chips and sips of water until he can tolerate a diet to be advanced. Consider either general surgery consult or imaging of the abdomen and pelvis with CT if clinically indicated. Follow serum CK daily. Recheck lipase in a day; this could be a phase reactant or another episode of pancreatitis. When he is medically stable, will request Social Work consult regarding his use of marijuana which is causing many of his symptoms and hospitalizations DEEP VENOUS THROMBOSIS PROPHYLAXIS: Pharmacotherapy. CODE STATUS: FULL CODE. ATTESTATION: The patient is expected to be discharged or transferred to another facility within 96 hours: Yes. cc: Mark Edmond MD TD: 03/28/2020 18:33 MTDD
[2020-03-28 19:05] LABS: AMPHETAMINE SCREEN,URINE NEGATIVE (NEGATIVE); BENZODIAZEPINES SCREEN, URINE NEGATIVE (NEGATIVE); COCAINE SCREEN URINE NEGATIVE (NEGATIVE); METHADONE SCREEN, URINE NEGATIVE (NEGATIVE); METHAMPHETAMINES SCREEN, URINE NEGATIVE (NEGATIVE); OPIATE SCREEN, URINE POSITIVE (NEGATIVE); OXYCODONE SCREEN, URINE NEGATIVE (NEGATIVE); PROPOXYPHENE SCREEN, URINE NEGATIVE (NEGATIVE); TRICYCLIC ANTIDEPRESSANT,URINE NEGATIVE (NEGATIVE)
[2020-03-28 19:16] LABS: BACTERIA,URINE Rare /HPF (None Seen); CASTS, URINE 26-50 Hyaline Casts /LPF; RBC,URINE 0-5 /HPF (0-5); SQUAMOUS EPITHELIAL CELL,UR RARE Squamous (<= Few)
[2020-03-28] MEDS: DEXTROSE 5%-0.9% NACL 1,000 ML IV SCH (22:19)
[2020-03-28] MEDS: HEPARIN 5,000 UNIT/ML VIAL SUBQ SCH (22:21)
[2020-03-29] MEDS: DEXTROSE 5%-0.9% NACL 1,000 ML IV SCH ×4 (00:23→17:57)
[2020-03-29] MEDS: SODIUM CHLORIDE FLUSH 0.9% 10 ML SYRINGE IVP SCH ×5 (00:23→06:23)
[2020-03-29] MEDS: ONDANSETRON 4 MG/2 ML VIAL IVP PRN ×4 (00:37→20:46)
[2020-03-29] MEDS: HYDROmorphone 0.5 MG/0.5 ML SYRINGE IVP PRN ×6 (00:41→20:46)
[2020-03-29 05:25] LABS: CALCIUM 8.9 mg/dL (8.5-10.3); CREATININE 1.7 mg/dL (0.6-1.2)
[2020-03-29 05:28] LABS: BASOPHILS % (AUTO) 0.5 %; EOSINOPHILS % (AUTO) 0.4 %; HGB - HEMOGLOBIN 17.3 g/dL (14.0-18.0); LYMPHOCYTES % (AUTO) 13.5 %; MEAN CORPUSCULAR HEMOGLOBIN 29.1 pg (27.0-31.0); MEAN CORPUSCULAR HGB CONC 34.7 g/dL (32.0-36.0); MEAN CORPUSCULAR VOLUME 83.8 fL (80.0-94.0); MEAN PLATELET VOLUME 9.6 fL (7.4-11.4); MONOCYTES % (AUTO) 12.2 %; NEUTROPHILS % (AUTO) 72.9 %; PLT - PLATELET COUNT 296 10^3/uL (130-450); RED BLOOD COUNT 5.94 10^6/uL (4.70-6.10); RED CELL DISTRIBUTION WIDTH 13.8 % (12.0-15.0); WHITE BLOOD COUNT 12.6 x10^3/uL (4.8-10.8)
[2020-03-29 05:37] LABS: ABNORMAL LYMPHS % (MANUAL) 0 %; BAND NEUTROPHILS % (MANUAL) 0 %
[2020-03-29 05:51] LABS: LYMPHOCYTES # (MANUAL) 2.4 10^3/uL (1.5-3.5); LYMPHOCYTES % (MANUAL) 19 %; MONOCYTES # (MANUAL) 1.3 10^3/uL (0.0-1.0); RBC MORPHOLOGY (MULTIPLE) NORMAL APPEARANCE (NORMAL)
[2020-03-29 05:52] LABS: DIFFERENTIAL COMMENT MANUAL DIFFERENTIAL; PLATELET ESTIMATE, MANUAL NORMAL (130-450,000) (NORMAL); PLATELET MORPHOLOGY NORMAL APPEARANCE (NORMAL)
[2020-03-29] MEDS: PANTOPRAZOLE 40 MG VIAL IVP SCH (06:22)
[2020-03-29] MEDS: SODIUM CHLORIDE FLUSH 0.9% 10 ML SYRINGE IVP PRN ×5 (06:23→20:46)
[2020-03-29] MEDS: PROCHLORPERAZINE 10 MG/2 ML VIAL IVP PRN (08:01)
[2020-03-29 08:59] LABS: ALBUMIN 4.4 g/dL (3.2-5.5); BILIRUBIN,DIRECT 0.2 mg/dL (0.1-0.5); BILIRUBIN,TOTAL 1.3 mg/dL (0.2-1.0); TOTAL PROTEIN 7.3 g/dL (6.7-8.2)
[2020-03-29] MEDS: HEPARIN 5,000 UNIT/ML VIAL SUBQ SCH ×2 (09:05→20:41)
--- NOTE | 2020-03-29 10:13 | PROVIDER PROGRESS NOTE ---
Assessment/Plan - Problem List (1) Acute kidney injury Assessment/Plan: Creatinine has improved from 3.9 down to 1.7 with IV hydration. Avoid nephrotoxins. Continue IV hydration. Follow BMP daily (2) Dehydration Assessment/Plan: He was hemoconcentrated, hemoglobin was 19 at admission. Continue with IV hydration. Patient cannot take p.o. liquids yet due to his abdominal pain and nausea. Since this has happened frequently in the past, we know that it usually takes 3 days for his nausea to improve and a diet to begin. (3) Nausea & vomiting Qualifiers: Vomiting type: unspecified Vomiting Intractability: non-intractable Qualified Code(s): R11.2 - Nausea with vomiting, unspecified Assessment/Plan: Continue with PRN antiemetics and bowel rest with just chips and sips (4) Intractable abdominal pain Assessment/Plan: Thus far, this presentation is similar to the past ones. No general surgery c onsult or CT of the abdomen is ordered yet. The elevated lipase was a phase reactant, it is normal today. The bilirubin remains minimally elevated at 1.3 yesterday and today with a slightly higher AST than ALT. The patient did have alcohol abuse in the past. Continue to monitor the LFTs. Continue with pain meds as needed. Continue with bowel rest and IV hydration. (5) Rhabdomyolysis Assessment/Plan: CK increased from 880 yesterday to 911 today. This is probably from washout since he was started on IV hydration at a high rate just last evening. Follow his creatinine daily in case the muscle breakdown affects his kidney function. Continue with IV hydration. Monitor CK daily (6) Cannabis abuse Assessment/Plan: He has been told multiple times that he probably has cannabis hyperemesis syndrome and advised to stop using cannabis. His MOD screen shows the presence of cannabis now. Once he is medically stable, will request Social Work consult to address aggressively the poor decision-making of cannabis use in this patient (7) Hyponatremia Assessment/Plan: This is hypovolemic hyponatremia. Continue with fluids containing NS. Follow BMP daily (8) Hypokalemia Assessment/Plan: Replace via IV riders and in his IV fluids. Follow BMP daily - Current Meds Current Meds: Current Medications Generic Name Dose Route Start Last Admin Trade Name Freq PRN Reason Stop Dose Admin Heparin Sodium (Porcine) 5,000 unit 03/28/20 21:00 03/29/20 09:05 SUBQ 5,000 unit BID SCOTT Administration Hydromorphone HCl 0.5 mg 03/28/20 16:25 03/29/20 08:01 Dilaudid Inj Syringe IVP 0.5 mg Q2H PRN Administration Pain 8 to 10 Dextrose/Sodium Chloride 1,000 mls @ 175 mls/hr 03/28/20 18:58 03/29/20 06:21 D5ns IV 175 mls/hr .[id number] SCOTT Administration Ondansetron HCl 4 mg 03/28/20 16:25 03/29/20 05:00 Zofran Inj IVP 4 mg Q6HR PRN Administration Nausea / Vomiting Pantoprazole Sodium 40 mg 03/28/20 17:00 03/29/20 06:22 Protonix IVP 40 mg QDAC SCOTT Administration Prochlorperazine Edisylate 10 mg 03/28/20 16:25 03/29/20 08:01 Compazine Inj IVP 10 mg Q6HR PRN Administration Nausea / Vomiting Sodium Chloride 10 ml 03/28/20 16:25 03/29/20 08:02 Normal Saline Flush 0.9% IVP 30 ml PRN PRN Administration NEEDED PER PROVIDER ORDERS Sodium Chloride 10 ml 03/28/20 17:00 03/29/20 06:23 Normal Saline Flush 0.9% IVP 10 ml 0100,0900,1700 SCOTT Administration - Lab Result Fish Bone Diagrams: 03/29/20 05:05 03/29/20 05:05 - Additional Planning My Orders: My Active Orders 03/28/20 16:25 HYDROmorphone INJ SYRINGE [Dilaudid Inj Syringe] 0.5 mg IVP Q2H PRN Ondansetron Inj [Zofran Inj] 4 mg IVP Q6HR PRN Prochlorperazine Inj [Compazine Inj] 10 mg IVP Q6HR PRN Sodium Chloride Flush 0.9% [Normal Saline Flush 0.9%] 10 ml IVP PRN PRN 03/28/20 16:26 Activity Orders [RC] Q2HR IO [RC] IOSHIFT Initiate Bowel Care Protocol [RC] .protocol Initiate Personal Care Protoco [RC] .protocol Oxygen Therapy [RC] Routine Vital Signs [RC] 0800,1600,0000 Code Status [OTHERS] Routine Condition of Patient [OTHERS] Routine DVT Prophylaxis [OTHERS] Routine 03/28/20 16:27 NPO except Meds [DIET] 03/28/20 16:28 Daily Weight [RC] 0600 IV Insert [RC] .ONCE 03/28/20 16:29 Initiate Line Care Protocol [RC] QSHIFT 03/28/20 17:00 Pantoprazole [Protonix] 40 mg IVP QDAC Sodium Chloride Flush 0.9% [Normal Saline Flush 0.9%] 10 ml IVP 0100,0900,1700 03/28/20 17:11 Metoclopramide Inj [Reglan Inj] 5 mg IVP Q6HR PRN 03/28/20 18:58 Dextrose 5%-0.9% NaCl [D5ns] 1,000 ml IV 175 mls/hr 03/28/20 21:00 Heparin 5,000 unit SUBQ BID 03/30/20 05:00 BMP - BASIC METABOLIC PANEL [CHEM] DAILYLAB CBC - COMP BLD CT W/AUTO DIFF [HEME] DAILYLAB CK- CREATINE KINASE [CHEM] DAILYLAB 03/31/20 05:00 BMP - BASIC METABOLIC PANEL [CHEM] DAILYLAB CBC - COMP BLD CT W/AUTO DIFF [HEME] DAILYLAB CK- CREATINE KINASE [CHEM] DAILYLAB 04/01/20 05:00 CK- CREATINE KINASE [CHEM] DAILYLAB Subjective - Subjective Patient Reports: Other (Sleeping after narcotics given for pain) Objective Vital Signs: Vital Signs - 24 hr 03/28/20 03/28/20 03/28/20 14:45 15:03 16:59 Temperature 36.6 C 36.4 C L Heart Rate 97 88 63 Heart Rate [ Brachial] Respiratory 14 18 19 Rate Blood Pressure 211/145 H 157/113 H 163/114 H Blood Pressure [Left Brachial artery] Blood Pressure [Right Brachial artery] O2 Saturation 95 94 97 03/28/20 03/28/20 03/28/20 17:48 18:33 20:10 Temperature 36.7 C 36.7 C Heart Rate 55 L Heart Rate [ 71 Brachial] Respiratory 18 18 Rate Blood Pressure Blood Pressure 181/120 H 173/105 H [Left Brachial artery] Blood Pressure 184/118 H [Right Brachial artery] O2 Saturation 95 98 03/29/20 03/29/20 00:00 08:00 Temperature 36.8 C 37.0 C Heart Rate Heart Rate [ 52 L 48 L Brachial] Respiratory 16 Rate Blood Pressure Blood Pressure [Left Brachial artery] Blood Pressure 138/81 H 124/79 [Right Brachial artery] O2 Saturation 96 99 Oxygen O2 Source Room air I&O (Last 24 Hrs): Intake and Output Totals x24h 03/27/20 03/28/20 03/29/20 23:59 23:59 23:59 Intake Total 9322.249 3563 Output Total 300 900 Balance 1318.117 100 General: Other (sleeping) HEENT: Other (eyes and mouth are closed, pt sleeping) Neck: Supple Neuro: Other (sedated) Cardiovascular: Regular rate Respiratory: No respiratory distress Abdomen: Soft Extremities: No edema - Results Results: Laboratory Results WBC 12.6 x10^3/uL (4.8-10.8) H 03/29/20 05:05 RBC 5.94 10^6/uL (4.70-6.10) 03/29/20 05:05 Hgb 17.3 g/dL (14.0-18.0) 03/29/20 05:05 Hct 49.8 % (42.0-52.0) 03/29/20 05:05 MCV 83.8 fL (80.0-94.0) 03/29/20 05:05 MCH 29.1 pg (27.0-31.0) 03/29/20 05:05 MCHC 34.7 g/dL (32.0-36.0) 03/29/20 05:05 RDW 13.8 % (12.0-15.0) 03/29/20 05:05 Plt Count 296 10^3/uL (130-450) 03/29/20 05:05 MPV 9.6 fL (7.4-11.4) 03/29/20 05:05 Neut # (Auto) Not Reportable 03/29/20 05:05 Lymph # (Auto) Not Reportable 03/29/20 05:05 [place] # (Auto) Not Reportable 03/29/20 05:05 Eos # (Auto) Not Reportable 03/29/20 05:05 Baso # (Auto) Not Reportable 03/29/20 05:05 Absolute Nucleated RBC Not Reportable 03/29/20 05:05 Total Counted 100 03/29/20 05:05 Band Neuts % (Manual) 0 % (0-10) 03/29/20 05:05 Abnorm Lymph % (Manual) 0 % 03/29/20 05:05 Nucleated RBC % Not Reportable 03/29/20 05:05 Neutrophils # (Manual) 8.9 10^3/uL (1.5-6.6) H 03/29/20 05:05 Lymphocytes # (Manual) 2.4 10^3/uL (1.5-3.5) 03/29/20 05:05 Monocytes # (Manual) 1.3 10^3/uL (0.0-1.0) H 03/29/20 05:05 Eosinophils # (Manual) 0.0 10^3/uL (0-0.7) 03/29/20 05:05 Basophils # (Manual) 0.0 10^3/uL (0-0.1) 03/29/20 05:05 Differential Comment MANUAL DIFFERENTIAL 03/29/20 05:05 WBC Morphology NORMAL APPEARANCE (NORMAL) 03/29/20 05:05 Platelet Estimate NORMAL (130-450,000) (NORMAL) 03/29/20 05:05 Platelet Morphology NORMAL APPEARANCE (NORMAL) 03/29/20 05:05 RBC Morph Micro Appear NORMAL APPEARANCE (NORMAL) 03/29/20 05:05 Sodium 133 mmol/L (135-145) L 03/29/20 05:05 Potassium 3.4 mmol/L (3.5-5.0) L 03/29/20 05:05 Chloride 97 mmol/L (101-111) L 03/29/20 05:05 Carbon Dioxide 27 mmol/L (21-32) 03/29/20 05:05 Anion Gap 9.0 (6-13) 03/29/20 05:05 BUN 44 mg/dL (6-20) H 03/29/20 05:05 Creatinine 1.7 mg/dL (0.6-1.2) H 03/29/20 05:05 Estimated GFR (MDRD) 55 (>89) L 03/29/20 05:05 Glucose 111 mg/dL (70-100) H 03/29/20 05:05 Lactic Acid 1.8 mmol/L (0.5-2.2) 03/28/20 15:15 Calcium 8.9 mg/dL (8.5-10.3) 03/29/20 05:05 Total Bilirubin 1.3 mg/dL (0.2-1.0) H 03/29/20 05:05 Direct Bilirubin 0.2 mg/dL (0.1-0.5) 03/29/20 05:05 AST 46 IU/L (10-42) H 03/29/20 05:05 ALT 26 IU/L (10-60) 03/29/20 05:05 Alkaline Phosphatase 59 IU/L (42-121) 03/29/20 05:05 Total Creatine Kinase 911 IU/L (22-269) H 03/29/20 05:05 CK-MB (CK-2) 14.7 ng/mL (0.6-6.3) H 03/28/20 15:11 Total Protein 7.3 g/dL (6.7-8.2) 03/29/20 05:05 Albumin 4.4 g/dL (3.2-5.5) 03/29/20 05:05 Globulin 2.9 g/dL (2.1-4.2) 03/29/20 05:05 Albumin/Globulin Ratio 1.6 (1.0-2.2) 03/28/20 15:15 Lipase 50 U/L (22-51) 03/29/20 05:05 Urine Color LT. YELLOW 03/28/20 18:30 Urine Clarity SL. CLOUDY (CLEAR) 03/28/20 18:30 Urine pH 5.5 PH (5.0-7.5) 03/28/20 18:30 Ur Specific [place] >=1.030 (1.002-1.030) H 03/28/20 18:30 Urine Protein TRACE mg/dL (NEGATIVE) 03/28/20 18:30 Urine Glucose (UA) NEGATIVE mg/dL (NEGATIVE) 03/28/20 18:30 Urine Ketones NEGATIVE mg/dL (NEGATIVE) 03/28/20 18:30 Urine Occult Blood TRACE-INTA (NEGATIVE) 03/28/20 18:30 Urine Nitrite NEGATIVE (NEGATIVE) 03/28/20 18:30 Urine Bilirubin NEGATIVE (NEGATIVE) 03/28/20 18:30 Urine Urobilinogen 0.2 (NORMAL) E.U./dL (NORMAL) 03/28/20 18:30 Ur Leukocyte Esterase NEGATIVE (NEGATIVE) 03/28/20 18:30 Urine RBC 0-5 /HPF (0-5) 03/28/20 18:30 Urine WBC 0-3 /HPF (0-3) 03/28/20 18:30 Ur Squamous Epith Cells RARE Squamous (<= Few) 03/28/20 18:30 Urine Bacteria Rare /HPF (None Seen) 03/28/20 18:30 Urine Casts 26-50 Hyaline Casts /LPF 03/28/20 18:30 Ur Microscopic Review INDICATED 03/28/20 18:30 Urine Culture Comments NOT INDICATED 03/28/20 18:30 Urine Opiates Screen POSITIVE (NEGATIVE) H 03/28/20 18:30 Ur Oxycodone Screen NEGATIVE (NEGATIVE) 03/28/20 18:30 Urine Methadone Screen NEGATIVE (NEGATIVE) 03/28/20 18:30 Ur Propoxyphene Screen NEGATIVE (NEGATIVE) 03/28/20 18:30 Ur Barbiturates Screen NEGATIVE (NEGATIVE) 03/28/20 18:30 Ur Tricyclics Screen NEGATIVE (NEGATIVE) 03/28/20 18:30 Ur Phencyclidine Scrn NEGATIVE (NEGATIVE) 03/28/20 18:30 Ur Amphetamine Screen NEGATIVE (NEGATIVE) 03/28/20 18:30 U Methamphetamines Scrn NEGATIVE (NEGATIVE) 03/28/20 18:30 U Benzodiazepines Scrn NEGATIVE (NEGATIVE) 03/28/20 18:30 Urine Cocaine Screen NEGATIVE (NEGATIVE) 03/28/20 18:30 U Cannabinoids Screen POSITIVE (NEGATIVE) H 03/28/20 18:30 - Procedures Procedures: Procedures EXCISION OF ESOPHAGUS, ENDO, DIAGN (04/29/17) EXCISION OF STOMACH, ENDO, DIAGN (04/29/17) INSPECTION OF LOWER INTESTINAL TRACT, ENDO (04/29/17)
--- NOTE | 2020-03-29 11:56 | HISTORY & PHYSICAL EXAMINATION ---
DATE OF SERVICE: 03/28/2020 Physician: Nena Solis MD CORRECTION: 5. Leukocytosis (NOT Hypocalcemia) TD: 03/29/2020 10:29 MTDD
--- NOTE | 2020-03-29 16:49 | PHARMACY PROGRESS NOTE ---
- Best Possible Medication History Admit Date and Time: 03/28/20 1625 Processed by: Pharmacy Medication History completed: Yes Patient Interview: Completed Secondary Source(s): Physician records, Pharmacy records As the person ultimately responsible for medication therapy, providers are able to order a medication from an existing home medication list in [facility] via the "Reconcile Routine" prior to Confirmation of that medication by senior technical support analyst. Such practice is discouraged except when the physician, in their clinical judgment, deems that a medical need exists for a medication without regard to previous use.
[2020-03-30] MEDS: DEXTROSE 5%-0.9% NACL 1,000 ML IV SCH ×5 (00:21→21:40)
[2020-03-30] MEDS: HYDROmorphone 0.5 MG/0.5 ML SYRINGE IVP PRN ×4 (00:22→19:21)
[2020-03-30] MEDS: SODIUM CHLORIDE FLUSH 0.9% 10 ML SYRINGE IVP PRN ×4 (00:31→18:11)
[2020-03-30 05:55] LABS: BASOPHILS % (AUTO) 0.6 %; EOSINOPHILS # (AUTO) 0.1 10^3/uL (0.0-0.7); EOSINOPHILS % (AUTO) 1.7 %; HGB - HEMOGLOBIN 13.1 g/dL (14.0-18.0); LYMPHOCYTES # (AUTO) 2.4 10^3/uL (1.5-3.5); LYMPHOCYTES % (AUTO) 45.7 %; MEAN CORPUSCULAR HEMOGLOBIN 28.4 pg (27.0-31.0); MEAN CORPUSCULAR HGB CONC 32.1 g/dL (32.0-36.0); MEAN CORPUSCULAR VOLUME 88.3 fL (80.0-94.0); MEAN PLATELET VOLUME 9.8 fL (7.4-11.4); MONOCYTES # (AUTO) 0.8 10^3/uL (0.0-1.0); MONOCYTES % (AUTO) 15.9 %; NEUTROPHILS # (AUTO) 1.9 10^3/uL (1.5-6.6); NEUTROPHILS % (AUTO) 36.1 %; PLT - PLATELET COUNT 211 10^3/uL (130-450); RED BLOOD COUNT 4.62 10^6/uL (4.70-6.10); WHITE BLOOD COUNT 5.2 x10^3/uL (4.8-10.8)
[2020-03-30] MEDS: ONDANSETRON 4 MG/2 ML VIAL IVP PRN ×2 (05:59→17:12)
[2020-03-30 06:05] LABS: CALCIUM 8.3 mg/dL (8.5-10.3); CREATININE 0.9 mg/dL (0.6-1.2)
[2020-03-30] MEDS: PANTOPRAZOLE 40 MG VIAL IVP SCH (06:09)
--- NOTE | 2020-03-30 08:50 | PROVIDER PROGRESS NOTE ---
Assessment/Plan - Problem List (1) Rhabdomyolysis Assessment/Plan: Admission CK was 800, increased to 900 yesterday, now down to 666. There was no LAZARO related to the rhabdo. Continue with IV hydration at a good rate to flush out the myoglobin. Follow serum CK daily (2) Dehydration Assessment/Plan: Improving, he still has prerenal azotemia by BUN/creatinine ratio of 20/0.9 today. Continue with IV fluids until he is able to hydrate orally, clear liquids to start today. (3) Nausea & vomiting Qualifiers: Vomiting type: unspecified Vomiting Intractability: non-intractable Qualified Code(s): R11.2 - Nausea with vomiting, unspecified Assessment/Plan: More controlled symptoms. We will start clear liquid diet today, then will advance as tolerated Continue with IV hydration since, historically, his p.o. intake is very slow to recover back to good fluid volume intake and adequate nutrition Will resume his home meds such as Bentyl as needed. (4) Intractable abdominal pain Assessment/Plan: Decreased pain noted. 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 We will try to substitute management of anxiety with pharmacologic therapy so that he does not have to use marijuana which gives him cyclical vomiting, using scheduled Librium. Will also resume his home Ativan 0.5 mg twice daily prn dose (6) Alcohol use Assessment/Plan: He had alcohol binging in the past, has had alcoholic pancreatitis. The social media editor learned that he uses occasional beers, has come to work hung over occasionally therefore he has decreased his beer intake. We will order oral Thiamine daily. Will order CIWA protocol. Will oral daily Librium, increase the dose if needed, this will also help with managing his anxiety as well, so he does not have to use cannabis (7) Hyponatremia Assessment/Plan: Solved after IV hydration with saline (8) Hypokalemia Assessment/Plan: Resolved with replacement. (9) Acute kidney injury Assessment/Plan: Resolved after several days of IV hydration at a very high rate. - Current Meds Current Meds: Current Medications Generic Name Dose Route Start Last Admin Trade Name Freq PRN Reason Stop Dose Admin Heparin Sodium (Porcine) 5,000 unit 03/28/20 21:00 03/29/20 20:41 SUBQ 5,000 unit BID SCOTT Administration Hydromorphone HCl 0.5 mg 03/28/20 16:25 03/30/20 05:59 Dilaudid Inj Syringe IVP 0.5 mg Q2H PRN Administration Pain 8 to 10 Dextrose/Sodium Chloride 1,000 mls @ 175 mls/hr 03/28/20 18:58 03/30/20 06:05 D5ns IV 175 mls/hr .[id number] SCOTT Administration Metoclopramide HCl 5 mg 03/28/20 17:11 03/30/20 00:31 Reglan Inj IVP 5 mg Q6HR PRN Administration Nausea / Vomiting Ondansetron HCl 4 mg 03/28/20 16:25 03/30/20 05:59 Zofran Inj IVP 4 mg Q6HR PRN Administration Nausea / Vomiting Pantoprazole Sodium 40 mg 03/28/20 17:00 03/30/20 06:09 Protonix IVP 40 mg QDAC SCOTT Administration Prochlorperazine Edisylate 10 mg 03/28/20 16:25 03/29/20 08:01 Compazine Inj IVP 10 mg Q6HR PRN Administration Nausea / Vomiting Sodium Chloride 10 ml 03/28/20 16:25 03/30/20 06:10 Normal Saline Flush 0.9% IVP 10 ml PRN PRN Administration NEEDED PER PROVIDER ORDERS Sodium Chloride 10 ml 03/28/20 17:00 03/29/20 06:23 Normal Saline Flush 0.9% IVP 10 ml 0100,0900,1700 SCOTT Administration - Lab Result Fish Bone Diagrams: 03/30/20 05:45 03/30/20 05:45 - Additional Planning My Orders: My Active Orders 03/30/20 08:46 CIWA - AR Score Card [RC] Routine Routine Neuro Check [RC] Routine Routine 03/30/20 09:00 Thiamine [Vitamin B-1] 100 mg PO DAILY polyethylene glycoL 3350 [Miralax] 17 gm PO DAILY 03/30/20 Lunch Clear Liquid Diet [DIET] 03/30/20 12:00 chlordiazePOXIDE [Librium] 12.5 mg PO DAILY 03/31/20 05:00 BMP - BASIC METABOLIC PANEL [CHEM] DAILYLAB CBC - COMP BLD CT W/AUTO DIFF [HEME] DAILYLAB CK- CREATINE KINASE [CHEM] DAILYLAB 04/01/20 05:00 CK- CREATINE KINASE [CHEM] DAILYLAB Subjective - Subjective Patient Reports: Feeling Better Objective Vital Signs: Vital Signs - 24 hr 03/29/20 03/29/20 03/30/20 16:40 23:55 08:00 Temperature 36.7 C 36.9 C 37.0 C Heart Rate [ 55 L 50 L 35 L Brachial] Respiratory 17 16 Rate Blood Pressure 110/62 [Left Brachial artery] Blood Pressure 115/63 126/83 H [Right Brachial artery] O2 Saturation 99 97 97 Oxygen O2 Source Room air I&O (Last 24 Hrs): Intake and Output Totals x24h 03/28/20 03/29/20 03/30/20 23:59 23:59 23:59 Intake Total 8878.283 1041.083 2000 Output Total 300 1350 200 Balance 7988.345 3182.083 1800 General: Alert HEENT: Mucous membr. moist/pink Neck: Supple Neuro: Non Focal Cardiovascular: Regular rate Respiratory: No respiratory distress Abdomen: Soft Extremities: No edema - Results Results: Laboratory Results WBC 5.2 x10^3/uL (4.8-10.8) 03/30/20 05:45 RBC 4.62 10^6/uL (4.70-6.10) L 03/30/20 05:45 Hgb 13.1 g/dL (14.0-18.0) L 03/30/20 05:45 Hct 40.8 % (42.0-52.0) L 03/30/20 05:45 MCV 88.3 fL (80.0-94.0) 03/30/20 05:45 MCH 28.4 pg (27.0-31.0) 03/30/20 05:45 MCHC 32.1 g/dL (32.0-36.0) 03/30/20 05:45 RDW 14.0 % (12.0-15.0) 03/30/20 05:45 Plt Count 211 10^3/uL (130-450) 03/30/20 05:45 MPV 9.8 fL (7.4-11.4) 03/30/20 05:45 Neut # (Auto) 1.9 10^3/uL (1.5-6.6) 03/30/20 05:45 Lymph # (Auto) 2.4 10^3/uL (1.5-3.5) 03/30/20 05:45 [place] # (Auto) 0.8 10^3/uL (0.0-1.0) 03/30/20 05:45 Eos # (Auto) 0.1 10^3/uL (0.0-0.7) 03/30/20 05:45 Baso # (Auto) 0.0 10^3/uL (0.0-0.1) 03/30/20 05:45 Absolute Nucleated RBC 0.00 x10^3/uL 03/30/20 05:45 Total Counted 100 03/29/20 05:05 Band Neuts % (Manual) 0 % (0-10) 03/29/20 05:05 Abnorm Lymph % (Manual) 0 % 03/29/20 05:05 Nucleated RBC % 0.0 /100WBC 03/30/20 05:45 Neutrophils # (Manual) 8.9 10^3/uL (1.5-6.6) H 03/29/20 05:05 Lymphocytes # (Manual) 2.4 10^3/uL (1.5-3.5) 03/29/20 05:05 Monocytes # (Manual) 1.3 10^3/uL (0.0-1.0) H 03/29/20 05:05 Eosinophils # (Manual) 0.0 10^3/uL (0-0.7) 03/29/20 05:05 Basophils # (Manual) 0.0 10^3/uL (0-0.1) 03/29/20 05:05 Differential Comment MANUAL DIFFERENTIAL 03/29/20 05:05 WBC Morphology NORMAL APPEARANCE (NORMAL) 03/29/20 05:05 Platelet Estimate NORMAL (130-450,000) (NORMAL) 03/29/20 05:05 Platelet Morphology NORMAL APPEARANCE (NORMAL) 03/29/20 05:05 RBC Morph Micro Appear NORMAL APPEARANCE (NORMAL) 03/29/20 05:05 Sodium 136 mmol/L (135-145) 03/30/20 05:45 Potassium 3.6 mmol/L (3.5-5.0) 03/30/20 05:45 Chloride 106 mmol/L (101-111) 03/30/20 05:45 Carbon Dioxide 27 mmol/L (21-32) 03/30/20 05:45 Anion Gap 3.0 (6-13) L 03/30/20 05:45 BUN 20 mg/dL (6-20) 03/30/20 05:45 Creatinine 0.9 mg/dL (0.6-1.2) 03/30/20 05:45 Estimated GFR (MDRD) 114 (>89) 03/30/20 05:45 Glucose 114 mg/dL (70-100) H 03/30/20 05:45 Lactic Acid 1.8 mmol/L (0.5-2.2) 03/28/20 15:15 Calcium 8.3 mg/dL (8.5-10.3) L 03/30/20 05:45 Total Bilirubin 1.3 mg/dL (0.2-1.0) H 03/29/20 05:05 Direct Bilirubin 0.2 mg/dL (0.1-0.5) 03/29/20 05:05 AST 46 IU/L (10-42) H 03/29/20 05:05 ALT 26 IU/L (10-60) 03/29/20 05:05 Alkaline Phosphatase 59 IU/L (42-121) 03/29/20 05:05 Total Creatine Kinase 666 IU/L (22-269) H 03/30/20 05:45 CK-MB (CK-2) 14.7 ng/mL (0.6-6.3) H 03/28/20 15:11 Total Protein 7.3 g/dL (6.7-8.2) 03/29/20 05:05 Albumin 4.4 g/dL (3.2-5.5) 03/29/20 05:05 Globulin 2.9 g/dL (2.1-4.2) 03/29/20 05:05 Albumin/Globulin Ratio 1.6 (1.0-2.2) 03/28/20 15:15 Lipase 50 U/L (22-51) 03/29/20 05:05 Urine Color LT. YELLOW 03/28/20 18:30 Urine Clarity SL. CLOUDY (CLEAR) 03/28/20 18:30 Urine pH 5.5 PH (5.0-7.5) 03/28/20 18:30 Ur Specific [place] >=1.030 (1.002-1.030) H 03/28/20 18:30 Urine Protein TRACE mg/dL (NEGATIVE) 03/28/20 18:30 Urine Glucose (UA) NEGATIVE mg/dL (NEGATIVE) 03/28/20 18:30 Urine Ketones NEGATIVE mg/dL (NEGATIVE) 03/28/20 18:30 Urine Occult Blood TRACE-INTA (NEGATIVE) 03/28/20 18:30 Urine Nitrite NEGATIVE (NEGATIVE) 03/28/20 18:30 Urine Bilirubin NEGATIVE (NEGATIVE) 03/28/20 18:30 Urine Urobilinogen 0.2 (NORMAL) E.U./dL (NORMAL) 03/28/20 18:30 Ur Leukocyte Esterase NEGATIVE (NEGATIVE) 03/28/20 18:30 Urine RBC 0-5 /HPF (0-5) 03/28/20 18:30 Urine WBC 0-3 /HPF (0-3) 03/28/20 18:30 Ur Squamous Epith Cells RARE Squamous (<= Few) 03/28/20 18:30 Urine Bacteria Rare /HPF (None Seen) 03/28/20 18:30 Urine Casts 26-50 Hyaline Casts /LPF 03/28/20 18:30 Ur Microscopic Review INDICATED 03/28/20 18:30 Urine Culture Comments NOT INDICATED 03/28/20 18:30 Urine Opiates Screen POSITIVE (NEGATIVE) H 03/28/20 18:30 Ur Oxycodone Screen NEGATIVE (NEGATIVE) 03/28/20 18:30 Urine Methadone Screen NEGATIVE (NEGATIVE) 03/28/20 18:30 Ur Propoxyphene Screen NEGATIVE (NEGATIVE) 03/28/20 18:30 Ur Barbiturates Screen NEGATIVE (NEGATIVE) 03/28/20 18:30 Ur Tricyclics Screen NEGATIVE (NEGATIVE) 03/28/20 18:30 Ur Phencyclidine Scrn NEGATIVE (NEGATIVE) 03/28/20 18:30 Ur Amphetamine Screen NEGATIVE (NEGATIVE) 03/28/20 18:30 U Methamphetamines Scrn NEGATIVE (NEGATIVE) 03/28/20 18:30 U Benzodiazepines Scrn NEGATIVE (NEGATIVE) 03/28/20 18:30 Urine Cocaine Screen NEGATIVE (NEGATIVE) 03/28/20 18:30 U Cannabinoids Screen POSITIVE (NEGATIVE) H 03/28/20 18:30 - Procedures Procedures: Procedures EXCISION OF ESOPHAGUS, ENDO, DIAGN (04/29/17) EXCISION OF STOMACH, ENDO, DIAGN (04/29/17) INSPECTION OF LOWER INTESTINAL TRACT, ENDO (04/29/17)
[2020-03-30] MEDS ORDERED: LORazepam 0.5 MG TABLET PO PRN (08:53)
[2020-03-30] MEDS ORDERED: PROMETHAZINE 25 MG TABLET PO PRN (08:53)
[2020-03-30] MEDS ORDERED: DICYCLOMINE 10 MG CAPSULE PO PRN (08:53)
[2020-03-30] MEDS: polyethylene glycoL 3350 17 GM PACKET PO SCH (10:12)
[2020-03-30] MEDS: chlordiazePOXIDE 5 MG CAPSULE PO SCH (10:12)
[2020-03-30] MEDS: THIAMINE 100 MG TABLET PO SCH (10:12)
[2020-03-30] MEDS: HEPARIN 5,000 UNIT/ML VIAL SUBQ SCH ×2 (10:12→21:33)
[2020-03-30] MEDS: oxyCODONE 5 MG TABLET PO PRN ×2 (10:12→21:39)
[2020-03-30] MEDS: SODIUM CHLORIDE FLUSH 0.9% 10 ML SYRINGE IVP SCH (16:16)
[2020-03-30] MEDS: PROCHLORPERAZINE 10 MG/2 ML VIAL IVP PRN (18:11)
[2020-03-31] MEDS: ONDANSETRON 4 MG/2 ML VIAL IVP PRN ×3 (01:31→17:28)
[2020-03-31] MEDS: HYDROmorphone 0.5 MG/0.5 ML SYRINGE IVP PRN ×3 (01:31→08:46)
[2020-03-31] MEDS: SODIUM CHLORIDE FLUSH 0.9% 10 ML SYRINGE IVP SCH ×3 (02:00→17:31)
[2020-03-31] MEDS: DEXTROSE 5%-0.9% NACL 1,000 ML IV SCH ×4 (03:31→22:26)
[2020-03-31] MEDS: PROCHLORPERAZINE 10 MG/2 ML VIAL IVP PRN (03:41)
[2020-03-31] MEDS: SODIUM CHLORIDE FLUSH 0.9% 10 ML SYRINGE IVP PRN ×3 (03:42→17:27)
[2020-03-31 05:34] LABS: BASOPHILS % (AUTO) 0.4 %; EOSINOPHILS % (AUTO) 0.2 %; HGB - HEMOGLOBIN 14.9 g/dL (14.0-18.0); LYMPHOCYTES % (AUTO) 19.8 %; MEAN CORPUSCULAR HEMOGLOBIN 29.1 pg (27.0-31.0); MEAN CORPUSCULAR HGB CONC 33.9 g/dL (32.0-36.0); MEAN CORPUSCULAR VOLUME 85.9 fL (80.0-94.0); MEAN PLATELET VOLUME 10.2 fL (7.4-11.4); MONOCYTES # (AUTO) 0.7 10^3/uL (0.0-1.0); MONOCYTES % (AUTO) 15.2 %; NEUTROPHILS # (AUTO) 3.1 10^3/uL (1.5-6.6); NEUTROPHILS % (AUTO) 64.2 %; PLT - PLATELET COUNT 234 10^3/uL (130-450); RED BLOOD COUNT 5.12 10^6/uL (4.70-6.10); RED CELL DISTRIBUTION WIDTH 12.9 % (12.0-15.0); WHITE BLOOD COUNT 4.8 x10^3/uL (4.8-10.8)
[2020-03-31 05:52] LABS: CALCIUM 8.7 mg/dL (8.5-10.3); CREATININE 0.7 mg/dL (0.6-1.2)
[2020-03-31] MEDS: PANTOPRAZOLE 40 MG VIAL IVP SCH (07:03)
[2020-03-31] MEDS: THIAMINE 100 MG TABLET PO SCH (08:41)
[2020-03-31] MEDS: chlordiazePOXIDE 5 MG CAPSULE PO SCH (08:42)
[2020-03-31] MEDS: HEPARIN 5,000 UNIT/ML VIAL SUBQ SCH ×2 (08:48→22:23)
[2020-03-31] MEDS: polyethylene glycoL 3350 17 GM PACKET PO SCH (10:22)
[2020-03-31] MEDS: POTASSIUM CHLOR 10 MEQ/100 ML 10 MEQ/100 ML BAG IV SCH ×4 (12:32→21:09)
[2020-03-31] MEDS: oxyCODONE 5 MG TABLET PO PRN (17:27)
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
[2020-04-01] MEDS: SODIUM CHLORIDE FLUSH 0.9% 10 ML SYRINGE IVP SCH ×2 (02:18→09:56)
[2020-04-01] MEDS: oxyCODONE 5 MG TABLET PO PRN (04:15)
[2020-04-01] MEDS: DEXTROSE 5%-0.9% NACL 1,000 ML IV SCH ×2 (04:19→10:24)
[2020-04-01 06:08] LABS: CALCIUM 8.4 mg/dL (8.5-10.3); CREATININE 0.8 mg/dL (0.6-1.2)
[2020-04-01] MEDS: ONDANSETRON 4 MG/2 ML VIAL IVP PRN (06:19)
[2020-04-01] MEDS: PANTOPRAZOLE 40 MG VIAL IVP SCH (06:19)
[2020-04-01] MEDS: HYDROmorphone 0.5 MG/0.5 ML SYRINGE IVP PRN ×3 (06:20→12:17)
[2020-04-01] MEDS: SODIUM CHLORIDE FLUSH 0.9% 10 ML SYRINGE IVP PRN ×3 (06:21→12:17)
[2020-04-01] MEDS: HEPARIN 5,000 UNIT/ML VIAL SUBQ SCH (08:10)
[2020-04-01] MEDS: polyethylene glycoL 3350 17 GM PACKET PO SCH (08:12)
[2020-04-01] MEDS: chlordiazePOXIDE 5 MG CAPSULE PO SCH (08:13)
[2020-04-01] MEDS: THIAMINE 100 MG TABLET PO SCH (08:13)
[2020-04-01] MEDS ORDERED: POTASSIUM CHLORIDE 20 MEQ TABLET PO ONE (08:26)
[2020-04-01 08:44] VITALS: BP 126/79
[2020-04-01] MEDS: POTASSIUM CHLORIDE 20 MEQ TABLET PO SCH ×2 (09:55→10:24)
--- NOTE | 2020-04-01 10:43 | Discharge Plan ---
Discharge Plan Problem Reviewed?: Yes Disposition: Home, Self Care Condition: Stable Prescriptions: oxyCODONE [Roxicodone] 10 mg PO Q6HR PRN #15 tab PRN Reason: Pain Ondansetron [Ondansetron Odt] 8 mg TL Q6H PRN #15 PRN Reason: Nausea / Vomiting Diet: Regular Activity Restrictions: Activity as Tolerated Shower Restrictions: No (fall precaution) Instruction Topics: Oxycodone tablets or capsules, Ondansetron tablets, Addiction Marijuana Signs, Abuse Marijuana, Dehydration, Nausea Vomit Control Health Concerns: cannabinoid hyperemesis, dehydration Plan of Treatment: you present cannabinoid hyperemesis, advise you quit cannabinoid, pain and nausea/vomiting meds are prescribed to help you. Keep hydration at home all the time. Care Goals: stabilization and improvement/resolve of your medical conditions Assessment: discussed the care plan with you, you understood and agreed. Additional Instructions or Follow Up instructions: you may followup with your PCP in 1-2 weeks. Should your symptoms return or worsen, you may present ER or call 911 for help. No Smoking: If you smoke, Please STOP! Call for help. Follow-up with: CLARA LOGAN MD [Primary Care Provider] -
--- NOTE | 2020-04-01 10:54 | DISCHARGE SUMMARY ---
Discharge Summary Admit Date: 03/29/20 Discharge Date: 04/01/20 Discharging Provider: Kane corcoran Primary Care Provider: Mark Oliver Condition at Discharge: Stable Discharge Disposition: 01 Home, Self Care Discharge Facility Name: home - DIAGNOSES Discharge Diagnoses with Status of Each Condition: (1) Acute kidney injury resolved. creatinine is 0.8, advise pt keep hydration at home (2) Dehydration resolved. advise pt keep hydration at home (3) Rhabdomyolysis Resolved/stable. Patient had a history of slightly elevated CK. Patient had a normal creatinine and renal function. Advised the patient keep hydration (4) Nausea & vomiting Resolved,Patient tolerated diet without nausea or vomiting (5) Intractable abdominal pain Resolved. (6) Cannabis abuse Advised patient quit cannabis use Which could have caused his frequent hospital visit with nausea, vomiting and abdominal pain per recently research study. (7) Alcohol use Patient denies alcohol abuse. (8) Hyponatremia resolved (9) Hypokalemia K is 3.4, replaced (10) sinus bradycardia stable, Patient has chronic and hx of sinus bradycardia. pt denies dizziness, shortness of breath, chest pain. Patient is hemodynamic stable. - HPI History of Present Illness: Patient is a 39-year-old -[place] gentleman with a PMH significant for nausea, vomiting and abdominal pain, HTN, current cigarette smoker, and alcohol abuse, current marijuana usage who complain of nausea, vomiting and abdominal pain. Pt has been multiple hospital visit in the past for his nausea, vomiting and abdomen pain, and multiple CT of abdomen and MRCP test, and EGD and colonoscopy, and GI specialty visit that appears grossly normal. Today pt report he had nausea and vomiting for two weeks. He denies cough, fever, chill, shortness of breath, chest pain. In Route lab test in ER pt is found to have 3.9 creatinine, usually his creatinine is around 1.1, hemoconcentrated. pt is admitted for intractable nausea, vomiting, abdominal pain, and LAZARO. - HOSPITAL COURSE Hospital Course: Patient was admitted for nausea, vomiting in intractable abdominal pain. Patient had multiple visits with similar problem in hospital. Patient still take marijuana. in the last admission, I discussed with the patient and hopeful he quit the marijuana, and at the time he said he will quit and he was convinced by the research studies. Unfortunately patient still take marijuana, still present similar problem with nausea, vomiting and intractable abdominal pain.Patient state he take marijuana for his chronic pain, he hope to have some pain medication with Zofran for control her nausea, vomiting as needed, and for his chronic pain, then hopefully quit marijuana.So patient is prescribed pain medi cation and Zofran as needed. Patient had bowel rest, antiemesis as needed, intravenous IV fluids, then patient's symptoms resolved and kidney function return at his baseline. - ALLERGIES Allergies/Adverse Reactions: Allergies Allergy/AdvReac Type Severity Reaction Status Date / Time morphine Allergy Unknown Verified 03/26/20 23:48 - MEDICATIONS Home Medications: Ambulatory Orders Medication Instructions Recorded Confirmed Dicyclomine [Bentyl] 10 mg PO QID PRN 02/11/20 03/29/20 LORazepam [Ativan] 0.5 mg PO BID PRN 03/28/20 03/29/20 Promethazine [Phenergan] 25 mg PO Q6H PRN 03/28/20 03/29/20 Ondansetron [Ondansetron Odt] 8 mg TL Q6H PRN #15 04/01/20 oxyCODONE [Roxicodone] 10 mg PO Q6HR PRN #15 tab 04/01/20 - PHYSICAL EXAM AT DISCHARGE General Appearance: positive: No acute distress, Alert. negative: Lethargic Eyes Bilateral: positive: Normal inspection, PERRL, No lid inflammation ENT: positive: ENT inspection nml, No signs of dehydration. negative: Purulent nasal drainage Neck: positive: Nml inspection, Thyroid nml, Trachea midline. negative: Thyromegaly, Stiff neck, Tracheal deviation Respiratory: positive: Chest non-tender, No respiratory distress. negative: Wheezes, Rales, Rhonchi Cardiovascular: positive: Regular rate & rhythm, No murmur. negative: Irregularly irregular, Tachycardia Peripheral Pulses: positive: 2+ Abdomen: positive: Non-tender, No organomegaly, Nml bowel sounds, No distention. negative: Tenderness, Guarding, Rebound Back: positive: Nml inspection. negative: CVA tenderness (R), CVA tenderness (L) Skin: positive: Color nml, No rash, Warm, Dry. negative: Cyanosis, Diaphoresis, Pallor Extremities: positive: Non-tender, Full ROM, Nml appearance. negative: Calf tenderness, Rachell's sign/cords Neurologic/Psychiatric: positive: Oriented x3, Motor nml, Sensation nml, Mood/affect nml. negative: Weakness, Sensory loss, Facial droop, Slurred/abnml speech, Depressed mood/affect - LABS Result Diagrams: 03/31/20 04:59 04/01/20 05:33 - FOLLOW UP Follow Up: you present cannabinoid hyperemesis, advise you quit cannabinoid, pain and nausea/vomiting meds are prescribed to help you. Keep hydration at home all the time. you may followup with your PCP in 1-2 weeks. Should your symptoms return or worsen, you may present ER or call 911 for help. - TIME SPENT Time Spent in Discharge (Minutes): 30
[2020-04-01] MEDS: PROCHLORPERAZINE 10 MG/2 ML VIAL IVP PRN (12:17)
== END 2020-04-01 13:20 | disposition home or self-care (01) | DRG 683 ==
LOC: ED 14:37 → MS2 16:25
PROVIDERS: ADMIT Internal Medicine; ATTEND Nurse Practitioner Gerontology
DX: N17.9 Acute kidney failure, unspecified (principal); M62.82 Rhabdomyolysis; E87.1 Hypo-osmolality and hyponatremia; E86.0 Dehydration; R11.2 Nausea with vomiting, unspecified; R10.9 Unspecified abdominal pain; F12.10 Cannabis abuse, uncomplicated; F41.9 Anxiety disorder, unspecified; E87.6 Hypokalemia; R00.1 Bradycardia, unspecified; I10 Essential (primary) hypertension; F17.210 Nicotine dependence, cigarettes, uncomplicated; F10.10 Alcohol abuse, uncomplicated; Z79.891 Long term (current) use of opiate analgesic; Z79.899 Other long term (current) drug therapy
CPT/HCPCS: 36415; 80048; 80053; 80076; 80306; 81001; 82550; 82553; 83605; 83690; 83735; 85025; 96365; 96366; 96375; 99284; 99285; A9270; J1170; J2765; J3411; Q0169; 81003; 87086

== ENCOUNTER 2020-05-30 09:41 | Outpatient (CLI) | payer MEDICAID | END 2020-05-30 09:42 | disposition critical access hospital (66) | LOC: EMS 09:41 | PROVIDERS: ATTEND Surgery | DX: R10.9 Unspecified abdominal pain (principal) | CPT/HCPCS: A0425; A0427; A0999 ==

== ENCOUNTER 2020-05-30 10:18 | Emergency (ER) | payer MEDICAID ==
--- NOTE | 2020-05-30 11:17 | ED Physician Documentation ---
PD HPI ABD PAIN - Stated complaint Stated Complaint: LUQ - Chief complaint Chief Complaint: Abd Pain - History obtained from History obtained from: Patient, EMS - History of Present Illness Timing - onset: Yesterday Timing - duration: Days (2) Timing - details: Gradual onset, Still present Quality: Cramping, Aching, Pain Location: RUQ, Epigastric Radiation: Upper back Improved by: Vomiting. No: Eating Worsened by: Eating, Palpation. No: Moving, Breathing Associated symptoms: Nausea, Vomiting. No: Fever, Diarrhea, Constipation, Dysuria, Chest pain Similar symptoms before: Diagnosis (previously pancreatitis, gastritis, but most recent has been cannibis related hyperemesis.) Recently seen: Emergency Dept Review of Systems Constitutional: denies: Fever, Chills, Myalgias Nose: denies: Rhinorrhea / runny nose, Congestion Throat: denies: Sore throat Respiratory: denies: Cough GI: reports: Abdominal Pain, Nausea, Vomiting. denies: Abdominal Swelling, Constipation, Diarrhea, Hematemesis, Bloody / black stool : denies: Dysuria Skin: denies: Rash PD PAST MEDICAL HISTORY - Past Medical History Cardiovascular: Hypertension Respiratory: None Neuro: None Endocrine/Autoimmune: None GI: GERD, Ulcers, Pancreatitis : None HEENT: None Psych: Depression, Anxiety, Panic attacks, Other Musculoskeletal: None Derm: None Other Past Medical History: states has not been taking antihypertensive meds for 2 years. - Past Surgical History Past Surgical History: No Ortho: Other - Present Medications Home Medications: Ambulatory Orders Medication Instructions Recorded Confirmed Dicyclomine [Bentyl] 10 mg PO QID PRN 02/11/20 03/29/20 LORazepam [Ativan] 0.5 mg PO BID PRN 03/28/20 03/29/20 Promethazine [Phenergan] 25 mg PO Q6H PRN 03/28/20 03/29/20 Ondansetron [Ondansetron Odt] 8 mg TL Q6H PRN #15 04/01/20 oxyCODONE [Roxicodone] 10 mg PO Q6HR PRN #15 tab 04/01/20 Dicyclomine [Bentyl] 10 mg PO QID PRN #20 capsule 05/30/20 Famotidine [Pepcid] 20 mg PO DAILY #20 tablet 05/30/20 Promethazine [Phenergan] 25 mg PO Q6H PRN #30 tab 05/30/20 haloperidoL [Haldol] 1 mg PO BID #20 tablet 05/31/20 - Allergies Allergies/Adverse Reactions: Allergies Allergy/AdvReac Type Severity Reaction Status Date / Time morphine Allergy Unknown Verified 05/31/20 09:32 - Social History Does the pt smoke?: Yes Smoking Status: Current every day smoker Does the pt drink ETOH?: Yes Does the pt have substance abuse?: Yes - Immunizations Immunizations are current?: Yes Immunizations: Other immun not current - POLST Patient has POLST: No POLST Status: Full Code PD ED PE NORMAL - Vitals Vital signs reviewed: Yes - General General: Alert and oriented X 3, Well developed/nourished, Other (appears in discomfort and grimacing, dry heaving. ) - HEENT HEENT: Pharynx benign. No: Moist mucous membranes - Neck Neck: Supple, no meningeal sign, No adenopathy - Cardiac Cardiac: RRR, No murmur, No rub - Respiratory Respiratory: Clear bilaterally - Abdomen Abdomen: Soft, Non distended, Other (tender in upper abd with local guarding and some percussion tender but no rebound. ) - Back Back: No CVA TTP - Derm Derm: Normal color, Warm and dry - Extremities Extremities: No edema, No calf tenderness / cord - Neuro Neuro: Alert and oriented X 3, No motor deficit, Normal speech Results - Vitals Vitals: Oxygen O2 Source Room air - Labs Labs: Laboratory Tests 05/30/20 05/30/20 12:19 12:19 WBC 6.1 RBC 6.18 H Hgb 17.6 Hct 52.4 H MCV 84.8 MCH 28.5 MCHC 33.6 RDW 15.2 H Plt Count 287 MPV 9.0 Neut # (Auto) 4.1 Lymph # (Auto) 1.3 L [place] # (Auto) 0.6 Eos # (Auto) 0.1 Baso # (Auto) 0.1 Absolute Nucleated RBC 0.00 Nucleated RBC % 0.0 Sodium 138 Potassium 4.0 Chloride 103 Carbon Dioxide 25 Anion Gap 10.0 BUN 18 Creatinine 1.1 Estimated GFR (MDRD) 90 Glucose 112 H Calcium 9.3 Magnesium 2.1 Total Bilirubin 0.8 AST 20 ALT 24 Alkaline Phosphatase 64 Total Protein 7.8 Albumin 4.6 Globulin 3.2 Albumin/Globulin Ratio 1.4 Lipase 25 PD MEDICAL DECISION MAKING - ED course Complexity details: reviewed old records, re-evaluated patient (improved with IV fluids and meds (no narcotics). ), considered differential, d/w patient Departure - Departure Disposition: 01 Home, Self Care Clinical Impression: Upper abdominal pain Nausea and vomiting Qualifiers: Vomiting type: unspecified Vomiting Intractability: non-intractable Qualified Code(s): R11.2 - Nausea with vomiting, unspecified Condition: Stable Record reviewed to determine appropriate education?: Yes Prescriptions: Dicyclomine [Bentyl] 10 mg PO QID PRN #20 capsule PRN Reason: Abdominal Pain Famotidine [Pepcid] 20 mg PO DAILY #20 tablet Promethazine [Phenergan] 25 mg PO Q6H PRN #30 tab PRN Reason: Nausea / Vomiting Comments: Begin fluids. [place] food. Promethazine as needed for nausea. Dicyclomine if needed for cramps. Also take famotidine daily for the next 2 to 3 weeks. Avoid cannabis. Stay well-hydrated. Return as needed. Discharge Date/Time: 05/30/20 13:55
[2020-05-30] MEDS ORDERED: HALOPERIDOL 5 MG/ML VIAL IVP ONE (11:46)
[2020-05-30] MEDS ORDERED: SODIUM CHLORIDE 0.9% 1,000 ML IV STA (11:46)
[2020-05-30] MEDS ORDERED: KETOROLAC 15 MG/ML VIAL IVP STA (11:48)
[2020-05-30] MEDS ORDERED: FAMOTIDINE 20 MG/2 ML SYRINGE IVP STA (11:48)
[2020-05-30] MEDS ORDERED: diphenhydrAMINE INJ 50 MG/ML VIAL IVP STA (12:18)
[2020-05-30 12:25] LABS: BASOPHILS # (AUTO) 0.1 10^3/uL (0.0-0.1); BASOPHILS % (AUTO) 0.8 %; EOSINOPHILS # (AUTO) 0.1 10^3/uL (0.0-0.7); EOSINOPHILS % (AUTO) 1.3 %; HGB - HEMOGLOBIN 17.6 g/dL (14.0-18.0); LYMPHOCYTES # (AUTO) 1.3 10^3/uL (1.5-3.5); LYMPHOCYTES % (AUTO) 20.6 %; MEAN CORPUSCULAR HEMOGLOBIN 28.5 pg (27.0-31.0); MEAN CORPUSCULAR HGB CONC 33.6 g/dL (32.0-36.0); MEAN CORPUSCULAR VOLUME 84.8 fL (80.0-94.0); MONOCYTES # (AUTO) 0.6 10^3/uL (0.0-1.0); MONOCYTES % (AUTO) 9.4 %; NEUTROPHILS # (AUTO) 4.1 10^3/uL (1.5-6.6); NEUTROPHILS % (AUTO) 67.4 %; PLT - PLATELET COUNT 287 10^3/uL (130-450); RED BLOOD COUNT 6.18 10^6/uL (4.70-6.10); RED CELL DISTRIBUTION WIDTH 15.2 % (12.0-15.0); WHITE BLOOD COUNT 6.1 x10^3/uL (4.8-10.8)
[2020-05-30 12:34] LABS: ALBUMIN 4.6 g/dL (3.2-5.5); ALBUMIN/GLOBULIN RATIO 1.4 (1.0-2.2); BILIRUBIN,TOTAL 0.8 mg/dL (0.2-1.0); CALCIUM 9.3 mg/dL (8.5-10.3); CREATININE 1.1 mg/dL (0.6-1.2); MAGNESIUM 2.1 mg/dL (1.7-2.8); TOTAL PROTEIN 7.8 g/dL (6.7-8.2)
[2020-05-30 13:44] VITALS: BP 127/85
== END 2020-05-30 13:55 | disposition home or self-care (01) ==
LOC: EDUNIT# → ED 10:18
DX: R10.11 Right upper quadrant pain (principal); R10.13 Epigastric pain; R11.2 Nausea with vomiting, unspecified; M54.6 Pain in thoracic spine; I10 Essential (primary) hypertension; Z87.11 Personal history of peptic ulcer disease; Z87.19 Personal history of other diseases of the digestive system; F17.200 Nicotine dependence, unspecified, uncomplicated
CPT/HCPCS: 36415; 80053; 83690; 83735; 85025; 96374; 96375; 99284; J1200

== ENCOUNTER 2020-05-31 08:50 | Outpatient (CLI) | payer MEDICAID | END 2020-05-31 08:51 | disposition critical access hospital (66) | LOC: EMS 08:50 | PROVIDERS: ATTEND Surgery | DX: R10.12 Left upper quadrant pain (principal); R11.2 Nausea with vomiting, unspecified | CPT/HCPCS: A0425; A0427; A0999 ==

== ENCOUNTER 2020-05-31 09:24 | Emergency (ER) | payer MEDICAID ==
[2020-05-31] MEDS ORDERED: SODIUM CHLORIDE 0.9% 1,000 ML IV STA ×2 (09:26→11:29)
[2020-05-31] MEDS ORDERED: HALOPERIDOL 5 MG/ML VIAL IVP ONE (09:27)
[2020-05-31] MEDS ORDERED: diphenhydrAMINE INJ 50 MG/ML VIAL IVP STA (09:27)
[2020-05-31] MEDS ORDERED: FAMOTIDINE 20 MG/2 ML SYRINGE IVP STA (09:28)
[2020-05-31] MEDS ORDERED: KETOROLAC 15 MG/ML VIAL IVP STA (09:29)
--- NOTE | 2020-05-31 09:29 | ED Physician Documentation ---
PD HPI ABD PAIN - Stated complaint Stated Complaint: ABD PAIN - History obtained from History obtained from: Patient - History of Present Illness Timing - onset: Today (onset again few hours ago of upper abd pain, nausea and repetitive vomiting.) Timing - duration: Hours Timing - details: Abrupt onset, Still present Quality: Cramping, Aching, Pain Location: RUQ, Epigastric Radiation: Upper back Improved by: No: Eating, Vomiting Worsened by: Eating, Position. No: Breathing Associated symptoms: Nausea, Vomiting. No: Fever, Hematemesis, Diarrhea, Constipation Similar symptoms before: Diagnosis (prior pancreatitis and gastritis, but not recent problems. Mainly presumed cannibis hyperemesis.) Recently seen: Emergency Dept (yesterday and couple days prior for similar. History of frequent ER visits for similar.) Review of Systems Constitutional: denies: Fever, Chills Nose: denies: Rhinorrhea / runny nose, Congestion Throat: denies: Sore throat Respiratory: denies: Cough GI: reports: Abdominal Pain, Nausea, Vomiting. denies: Abdominal Swelling, Constipation, Diarrhea, Hematemesis : denies: Dysuria, Frequency Neurologic: reports: Generalized weakness. denies: Near syncope PD PAST MEDICAL HISTORY - Past Medical History Cardiovascular: Hypertension Respiratory: None Neuro: None Endocrine/Autoimmune: None GI: GERD, Ulcers, Pancreatitis : None HEENT: None Psych: Depression, Anxiety, Panic attacks, Other Musculoskeletal: None Derm: None - Past Surgical History Past Surgical History: No Ortho: Other - Present Medications Home Medications: Ambulatory Orders Medication Instructions Recorded Confirmed Dicyclomine [Bentyl] 10 mg PO QID PRN 02/11/20 03/29/20 LORazepam [Ativan] 0.5 mg PO BID PRN 03/28/20 03/29/20 Promethazine [Phenergan] 25 mg PO Q6H PRN 03/28/20 03/29/20 Ondansetron [Ondansetron Odt] 8 mg TL Q6H PRN #15 04/01/20 oxyCODONE [Roxicodone] 10 mg PO Q6HR PRN #15 tab 04/01/20 Dicyclomine [Bentyl] 10 mg PO QID PRN #20 capsule 05/30/20 Famotidine [Pepcid] 20 mg PO DAILY #20 tablet 05/30/20 Promethazine [Phenergan] 25 mg PO Q6H PRN #30 tab 05/30/20 haloperidoL [Haldol] 1 mg PO BID #20 tablet 05/31/20 - Allergies Allergies/Adverse Reactions: Allergies Allergy/AdvReac Type Severity Reaction Status Date / Time morphine Allergy Unknown Verified 05/31/20 09:32 - Social History Does the pt smoke?: Yes Smoking Status: Current every day smoker Does the pt drink ETOH?: Yes Does the pt have substance abuse?: Yes - Immunizations Immunizations are current?: Yes Immunizations: Other immun not current - POLST Patient has POLST: No POLST Status: Full Code PD ED PE NORMAL - Vitals Vital signs reviewed: Yes - General General: Alert and oriented X 3, Well developed/nourished, Other (appears in distress, anxious and in pain. ) - HEENT HEENT: PERRL (nonicteric), Pharynx benign - Neck Neck: Supple, no meningeal sign, No adenopathy - Cardiac Cardiac: RRR, No murmur - Respiratory Respiratory: Clear bilaterally - Abdomen Abdomen: Soft, Non distended, No organomegaly, Other (tender upper abd with local guarding but no rebound. ). No: Normal bowel sounds (decreased) - Male Male : Deferred - Rectal Rectal: Deferred - Back Back: No CVA TTP - Derm Derm: Normal color Results - Vitals Vitals: Vital Signs - 24 hr 05/31/20 05/31/20 09:29 12:14 Temperature 37.3 C 36.7 C Heart Rate 91 74 Respiratory 18 22 Rate Blood Pressure 155/110 H 238/131 H O2 Saturation 97 99 Oxygen O2 Source Room air - Labs Labs: Laboratory Tests 05/31/20 09:35 Sodium 136 Potassium 3.9 Chloride 99 L Carbon Dioxide 23 Anion Gap 14.0 H BUN 22 H Creatinine 1.4 H Estimated GFR (MDRD) 68 L Glucose 133 H Calcium 10.1 Total Bilirubin 1.2 H AST 25 ALT 29 Alkaline Phosphatase 66 Total Protein 9.0 H Albumin 5.2 Globulin 3.8 Albumin/Globulin Ratio 1.4 Ethyl Alcohol < 5.0 PD MEDICAL DECISION MAKING - ED course Complexity details: reviewed old records, reviewed results, re-evaluated patient (sleeping and seems comfortable after IV fluids/haldol and benadryl/toradol. ), considered differential Departure - Departure Disposition: 01 Home, Self Care Clinical Impression: Cyclical vomiting Condition: Stable Record reviewed to determine appropriate education?: Yes Instructions: ED Nausea Vomiting Prescriptions: haloperidoL [Haldol] 1 mg PO BID #20 tablet Comments: The haloperidol does seem to work well for your nausea here in the ER so let us try taking it orally at a very low dose twice daily for 7 to 10 days. To that add the promethazine previously prescribed every 6 hours as needed. Stop using cannabis. Stay well-hydrated. Continue your famotidine daily as well. Recheck if more consistently improved over the next week or 2. Return as needed. Discharge Date/Time: 05/31/20 13:05
[2020-05-31 09:54] LABS: ALBUMIN 5.2 g/dL (3.2-5.5); ALBUMIN/GLOBULIN RATIO 1.4 (1.0-2.2); ALKALINE PHOSPHATASE 66 IU/L (42-121); ALT ALANINE AMINOTRANSFERASE 29 IU/L (10-60); AST ASPARTATE AMINOTRANSFERASE 25 IU/L (10-42); BILIRUBIN,TOTAL 1.2 mg/dL (0.2-1.0); BUN - BLOOD UREA NITROGEN 22 mg/dL (6-20); CALCIUM 10.1 mg/dL (8.5-10.3); CARBON DIOXIDE - CO2 23 mmol/L (21-32); CHLORIDE 99 mmol/L (101-111); CREATININE 1.4 mg/dL (0.6-1.2); GLUCOSE 133 mg/dL (70-100); SODIUM 136 mmol/L (135-145)
[2020-05-31 12:15] VITALS: BP 238/131
== END 2020-05-31 13:05 | disposition home or self-care (01) ==
LOC: EDUNIT# → ED 09:24
DX: R11.15 Cyclical vomiting syndrome unrelated to migraine (principal); R10.11 Right upper quadrant pain; I10 Essential (primary) hypertension; F17.200 Nicotine dependence, unspecified, uncomplicated
CPT/HCPCS: 36415; 80053; 80320; 96361; 96374; 96375; 99283; 99284; J1200

== ENCOUNTER 2020-07-23 11:18 | Outpatient (CLI) | payer MEDICAID | END 2020-07-23 11:19 | disposition critical access hospital (66) | LOC: EMS 11:18 | PROVIDERS: ATTEND Surgery | DX: R52 Pain, unspecified (principal); R11.2 Nausea with vomiting, unspecified | CPT/HCPCS: A0425; A0429 ==

== ENCOUNTER 2020-07-23 11:51 | Emergency (ER) | payer MEDICAID ==
[2020-07-23] MEDS ORDERED: SODIUM CHLORIDE 0.9% 1,000 ML IV STA (11:55)
[2020-07-23] MEDS ORDERED: HALOPERIDOL 5 MG/ML VIAL IVP ONE ×2 (11:55→16:33)
[2020-07-23 12:33] LABS: BASOPHILS # (AUTO) 0.1 10^3/uL (0.0-0.1); BASOPHILS % (AUTO) 0.8 %; EOSINOPHILS # (AUTO) 0.1 10^3/uL (0.0-0.7); EOSINOPHILS % (AUTO) 0.8 %; HGB - HEMOGLOBIN 18.6 g/dL (14.0-18.0); LYMPHOCYTES # (AUTO) 1.8 10^3/uL (1.5-3.5); LYMPHOCYTES % (AUTO) 29.7 %; MEAN CORPUSCULAR HEMOGLOBIN 27.8 pg (27.0-31.0); MEAN CORPUSCULAR HGB CONC 33.2 g/dL (32.0-36.0); MEAN CORPUSCULAR VOLUME 83.6 fL (80.0-94.0); MEAN PLATELET VOLUME 9.7 fL (7.4-11.4); MONOCYTES # (AUTO) 0.7 10^3/uL (0.0-1.0); MONOCYTES % (AUTO) 11.5 %; NEUTROPHILS # (AUTO) 3.4 10^3/uL (1.5-6.6); NEUTROPHILS % (AUTO) 56.9 %; PLT - PLATELET COUNT 361 10^3/uL (130-450); RED CELL DISTRIBUTION WIDTH 14.3 % (12.0-15.0); WHITE BLOOD COUNT 5.9 x10^3/uL (4.8-10.8)
[2020-07-23 12:54] LABS: ALBUMIN 6.1 g/dL (3.2-5.5); ALBUMIN/GLOBULIN RATIO 1.6 (1.0-2.2); BILIRUBIN,TOTAL 0.9 mg/dL (0.2-1.0); CALCIUM 11.4 mg/dL (8.5-10.3); CREATININE 1.8 mg/dL (0.6-1.2); POTASSIUM 3.6 mmol/L (3.5-5.0)
[2020-07-23] MEDS ORDERED: PROMETHAZINE INJ 25 MG in SODIUM CHLORIDE 0.9% 50 ML IV STA ×2 (12:58→21:36)
[2020-07-23] MEDS ORDERED: FAMOTIDINE 20 MG/2 ML VIAL IVP STA ×2 (12:58→18:58)
[2020-07-23] MEDS ORDERED: KETOROLAC 30 MG/ML VIAL IVP STA (12:58)
--- NOTE | 2020-07-23 13:00 | ED Physician Documentation ---
PD HPI ABD PAIN - Stated complaint Stated Complaint: LUQ PX - Chief complaint Chief Complaint: Abd Pain - History obtained from History obtained from: Patient - Additional information Additional information: 39-year-old gentleman has a long history of chronic recurrent abdominal pain, most likely cannabinoid hyperemesis. Radiating to the back with vomiting similar to prior episodes. He is trying to quit marijuana, last use he says was on New Year's. This is consistent with prior episodes of multiple recurrent issues with abdominal pain and vomiting with many many ER visits for same. Previous work-ups have been negative, other than some borderline lipases. Review of Systems Ten Systems: 10 systems reviewed and negative Constitutional: reports: Sweats. denies: Fever, Chills Cardiac: denies: Chest pain / pressure, Palpitations Respiratory: denies: Dyspnea, Cough PD PAST MEDICAL HISTORY - Past Medical History Cardiovascular: Hypertension Respiratory: None Neuro: None Endocrine/Autoimmune: None GI: GERD, Ulcers, Pancreatitis : None HEENT: None Psych: Depression, Anxiety, Panic attacks, Other Musculoskeletal: None Derm: None - Past Surgical History Past Surgical History: No Ortho: Other - Present Medications Home Medications: Ambulatory Orders Medication Instructions Recorded Confirmed Ondansetron Odt [Zofran] 4 mg TL Q6H PRN #10 tablet 07/23/20 - Allergies Allergies/Adverse Reactions: Allergies Allergy/AdvReac Type Severity Reaction Status Date / Time ketorolac [From Toradol] AdvReac Anxiety Verified 07/23/20 13:19 - Social History Does the pt smoke?: Yes Smoking Status: Current every day smoker Does the pt drink ETOH?: Yes Does the pt have substance abuse?: Yes - Immunizations Immunizations are current?: Yes Immunizations: Other immun not current - POLST Patient has POLST: No POLST Status: Full Code PD ED PE NORMAL - Vitals Vital signs reviewed: Yes - General General: Alert and oriented X 3, Other (uncomfortable) - HEENT HEENT: PERRL, EOMI - Neck Neck: Supple, no meningeal sign, No bony TTP - Cardiac Cardiac: RRR, No murmur - Respiratory Respiratory: No respiratory distress, Clear bilaterally - Abdomen Abdomen: Normal bowel sounds, Soft, Non tender - Back Back: No CVA TTP, No spinal TTP - Derm Derm: Normal color, Warm and dry - Extremities Extremities: No edema, No calf tenderness / cord - Neuro Neuro: Alert and oriented X 3, Normal speech - Psych Psych: Normal mood, Normal affect Results - Vitals Vitals: Vital Signs - 24 hr 07/23/20 07/23/20 07/23/20 11:55 12:12 14:16 Temperature 37.1 C 37.0 C Heart Rate 112 H 121 H 78 Respiratory 18 17 16 Rate Blood Pressure 186/126 H 201/139 H O2 Saturation 100 96 98 07/23/20 07/23/20 07/23/20 15:17 17:13 18:35 Temperature 37.0 C Heart Rate 71 68 71 Respiratory 16 18 16 Rate Blood Pressure 203/139 H 204/121 H 205/132 H O2 Saturation 98 100 98 07/23/20 07/23/20 07/23/20 20:03 20:52 22:47 Temperature Heart Rate 50 L 50 L 75 Respiratory 18 20 20 Rate Blood Pressure 119/78 138/91 H 120/80 O2 Saturation 98 100 100 07/23/20 07/23/20 22:55 23:29 Temperature 36.7 C 36.9 C Heart Rate 56 L 78 Respiratory 18 14 Rate Blood Pressure 127/78 126/91 H O2 Saturation 96 97 Oxygen O2 Source Room air - Labs Labs: Laboratory Tests 07/23/20 07/23/20 12:10 12:10 WBC 5.9 RBC 6.70 H Hgb 18.6 H Hct 56.0 H MCV 83.6 MCH 27.8 MCHC 33.2 RDW 14.3 Plt Count 361 MPV 9.7 Neut # (Auto) 3.4 Lymph # (Auto) 1.8 [place] # (Auto) 0.7 Eos # (Auto) 0.1 Baso # (Auto) 0.1 Absolute Nucleated RBC 0.00 Nucleated RBC % 0.0 Sodium 138 Potassium 3.6 Chloride 96 L Carbon Dioxide 24 Anion Gap 18.0 H BUN 19 Creatinine 1.8 H Estimated GFR (MDRD) 51 L Glucose 200 H Calcium 11.4 H Total Bilirubin 0.9 AST 50 H ALT 41 Alkaline Phosphatase 91 Total Protein 10.0 H Albumin 6.1 H Globulin 3.9 Albumin/Globulin Ratio 1.6 Lipase 30 PD MEDICAL DECISION MAKING - ED course ED course: 39-year-old gentleman with chronic recurrent abdominal pain, most likely cannabinoid hyperemesis. He is not tender. Initially administered 2.5 mg of haloperidol, recheck at 1 PM claiming no relief and this was followed by IV Phenergan, Pepcid, and Toradol. This is a well-known 39-year-old gentleman with chronic recurrent abdominal p ain, presumed cannabinoid hyperemesis. Benign examination, no elevated white count. Creatinine slightly elevated but within the range she has been in in the past at times. He was treated stepwise with medications here, initially Haldol without much relief, this was followed by Toradol, Phenergan and a GI cocktail noting that he refused the Toradol saying that it makes him anxious. Later received some Haldol again and oral oxycodone which she kept down just fine. At 6 PM noting that he had already had 3 doses of antiemetics he was offered admission which he declined feeling like he would eventually be able to go home. He was given a second liter of crystalloid and Reglan 10 mg IV. Departure - Departure Disposition: 01 Home, Self Care Clinical Impression: Cannabinoid hyperemesis syndrome, Nausea & vomiting, Upper abdominal pain Condition: Stable Record reviewed to determine appropriate education?: Yes Instructions: ED Nausea Vomiting Prescriptions: Ondansetron Odt [Zofran] 4 mg TL Q6H PRN #10 tablet PRN Reason: Nausea / Vomiting Comments: Continue abstaining from marijuana, hopefully will be much better soon. Return if worsening or if new symptoms develop. Follow-up with your primary care physician, next available appointment. Discharge Date/Time: 07/23/20 23:31
[2020-07-23] MEDS ORDERED: LIDOCAINE VISCOUS 2% 15 ML UDC MM STA (13:24)
[2020-07-23] MEDS ORDERED: MAG HYDROX/AL HYDROX/SIMETH 30 ML UDC PO STA (13:24)
[2020-07-23] MEDS ORDERED: oxyCODONE 5 MG TABLET PO STA (16:33)
[2020-07-23] MEDS ORDERED: LACTATED RINGERS 1,000 ML IV STA (18:03)
[2020-07-23] MEDS ORDERED: METOCLOPRAMIDE 10 MG/2 ML VIAL IVP STA (18:03)
[2020-07-23] MEDS ORDERED: ONDANSETRON 4 MG/2 ML VIAL IVP STA (19:07)
[2020-07-23] MEDS ORDERED: diphenhydrAMINE INJ 50 MG/ML VIAL IVP STA (19:07)
[2020-07-23] MEDS ORDERED: ACETAMINOPHEN 325 MG TABLET PO STA (19:08)
[2020-07-23] MEDS ORDERED: PROMETHAZINE 25 MG/1 ML VIAL ONE ×2 (19:29→21:59)
[2020-07-23] MEDS ORDERED: HYDROmorphone 1 MG/ML CARPUJECT IVP STA (21:48)
[2020-07-23 23:30] VITALS: BP 126/91
== END 2020-07-23 23:31 | disposition home or self-care (01) ==
LOC: EDUNIT# → ED 11:51
DX: R11.2 Nausea with vomiting, unspecified (principal); F12.988 Cannabis use, unspecified with other cannabis-induced disorder; R10.12 Left upper quadrant pain; G89.29 Other chronic pain; I10 Essential (primary) hypertension; F17.200 Nicotine dependence, unspecified, uncomplicated
CPT/HCPCS: 36415; 80053; 83690; 85025; 96365; 96375; 96376; 99284; 99285; A9270; J1170; J1200; J2765; J7040; J7120

== ENCOUNTER 2020-09-08 09:33 | Outpatient (CLI) | payer MEDICAID | END 2020-09-08 09:34 | disposition critical access hospital (66) | LOC: EMS 09:33 | PROVIDERS: ATTEND Emergency Medicine | DX: R10.12 Left upper quadrant pain (principal); R63.0 Anorexia | CPT/HCPCS: A0425; A0429 ==

== ENCOUNTER 2020-09-08 10:01 | Emergency (ER) | payer MEDICAID ==
--- NOTE | 2020-09-08 10:05 | ED Physician Documentation ---
PD HPI NVD - Stated complaint Stated Complaint: ABD PX/ NAUSEA - History obtained from History obtained from: Patient, EMS - History of Present Illness Timing - onset: Today Timing - duration: Hours Timing - details: Abrupt onset, Still present Associated symptoms: Abdominal pain. No: Fever, Chest pain, Hematemesis, Melena, Dizzy Contributing factors: No: Sick contact, Bad food, Recent antibiotics Improved by: No: Vomiting Worsened by: Eating, Palpation. No: Breathing Similar symptoms before: Diagnosis (mostly assumed cannibis hyperemesis. In past has had some elevated Lipase, but not recently. some element of presumed gastritis.) Review of Systems Constitutional: denies: Fever, Chills Nose: denies: Rhinorrhea / runny nose, Congestion Throat: denies: Sore throat Respiratory: denies: Cough GI: reports: Abdominal Pain, Nausea, Vomiting. denies: Constipation, Diarrhea Skin: denies: Rash Neurologic: reports: Generalized weakness. denies: Focal weakness, Numbness Psychiatric: reports: Anxiety PD PAST MEDICAL HISTORY - Past Medical History Cardiovascular: Hypertension Respiratory: None Neuro: None Endocrine/Autoimmune: None GI: GERD, Ulcers, Pancreatitis : None HEENT: None Psych: Depression, Anxiety, Panic attacks, Other Musculoskeletal: None Derm: None - Past Surgical History Past Surgical History: No Ortho: Other - Present Medications Home Medications: Ambulatory Orders Medication Instructions Recorded Confirmed Ondansetron Odt [Zofran] 4 mg TL Q6H PRN #10 tablet 07/23/20 Famotidine [Pepcid] 20 mg PO DAILY #20 tab 09/08/20 Prochlorperazine Supp [Compazine 25 mg IN Q8H PRN #10 supp 09/08/20 Supp] Promethazine [Phenergan] 25 mg PO Q6H PRN #25 tab 09/08/20 - Allergies Allergies/Adverse Reactions: Allergies Allergy/AdvReac Type Severity Reaction Status Date / Time ketorolac [From Toradol] AdvReac Anxiety Verified 09/08/20 10:39 - Social History Does the pt smoke?: Yes Smoking Status: Current every day smoker Does the pt drink ETOH?: Yes Does the pt have substance abuse?: Yes - Immunizations Immunizations are current?: Yes Immunizations: Other immun not current - POLST Patient has POLST: No POLST Status: Full Code PD ED PE NORMAL - Vitals Vital signs reviewed: Yes (BP elevated, as common with his presentations. ) - General General: Alert and oriented X 3, Well developed/nourished, Other (appears in considerable abd pain, with marked facial grimace. Forcing emesis. ) - HEENT HEENT: Pharynx benign - Neck Neck: Supple, no meningeal sign, No adenopathy - Cardiac Cardiac: RRR (mild tachycardia), No murmur - Respiratory Respiratory: Clear bilaterally - Abdomen Abdomen: Normal bowel sounds, Soft, Non distended, No organomegaly, Other (tender epigastric with guarding. ) Results - Vitals Vitals: Vital Signs - 24 hr 09/08/20 09/08/20 09/08/20 10:11 10:14 10:55 Temperature 36.0 C L Heart Rate 107 H 85 83 Respiratory 20 16 23 Rate Blood Pressure 195/162 H 221/180 H O2 Saturation 98 99 97 09/08/20 09/08/20 09/08/20 11:00 11:54 12:00 Temperature Heart Rate 83 83 84 Respiratory 23 28 H 26 H Rate Blood Pressure 218/145 H 199/142 H 208/137 H O2 Saturation 95 92 92 09/08/20 09/08/20 09/08/20 12:30 13:07 13:28 Temperature 37.3 C Heart Rate 72 71 108 H Respiratory 24 22 26 H Rate Blood Pressure 223/131 H 212/130 H 212/130 H O2 Saturation 94 96 94 09/08/20 09/08/20 09/08/20 13:31 14:01 14:31 Temperature Heart Rate 82 83 88 Respiratory 28 H 28 H 27 H Rate Blood Pressure 198/131 H 207/129 H 207/131 H O2 Saturation 94 91 L 92 09/08/20 15:19 Temperature 37.1 C Heart Rate 76 Respiratory 24 Rate Blood Pressure 202/131 H O2 Saturation 97 Oxygen O2 Source Room air - Labs Labs: Laboratory Tests 09/08/20 10:15 Sodium 136 Potassium 3.4 L Chloride 93 L Carbon Dioxide 25 Anion Gap 18.0 H BUN 24 H Creatinine 2.2 H Estimated GFR (MDRD) 41 L Glucose 164 H Calcium 10.8 H Magnesium 2.8 Total Bilirubin 1.1 H AST 37 ALT 40 Alkaline Phosphatase 99 Total Protein 10.1 H Albumin 6.0 H Globulin 4.1 Albumin/Globulin Ratio 1.5 Lipase 30 PD MEDICAL DECISION MAKING - ED course Complexity details: re-evaluated patient (he is eventually sedated from antiemetics and is then feeling improved enough to go. ), considered differential (well known to ER with similar visits. Similar to prior visits, it did take several doses of meds to get nausea improved. Pain improved without pain meds per se. ), d/w patient Departure - Departure Disposition: 01 Home, Self Care Clinical Impression: Cyclical vomiting, Hyperemesis, Acute upper abdominal pain Condition: Stable Instructions: ED Nausea Vomiting Prescriptions: Prochlorperazine Supp [Compazine Supp] 25 mg IN Q8H PRN #10 supp PRN Reason: Nausea / Vomiting Famotidine [Pepcid] 20 mg PO DAILY #20 tab Promethazine [Phenergan] 25 mg PO Q6H PRN #25 tab PRN Reason: Nausea / Vomiting Comments: Small frequent fluids at home and stay well-hydrated. Phenergan orally or Compazine suppository as needed for nausea and vomiting at home. Famotidine daily for the next few weeks. Discharge Date/Time: 09/08/20 15:21
[2020-09-08] MEDS ORDERED: SODIUM CHLORIDE 0.9% 1,000 ML IV STA (10:10)
[2020-09-08] MEDS ORDERED: DROPERIDOL 5 MG/2 ML VIAL IVP STA ×2 (10:10→12:59)
[2020-09-08] MEDS ORDERED: diphenhydrAMINE INJ 50 MG/ML VIAL IVP STA (10:10)
[2020-09-08] MEDS ORDERED: FAMOTIDINE 20 MG/2 ML VIAL IVP STA (10:11)
[2020-09-08] MEDS ORDERED: ACETAMINOPHEN 1,000 MG/100 ML 100 ML IV ONE (10:11)
[2020-09-08 10:30] LABS: ALBUMIN/GLOBULIN RATIO 1.5 (1.0-2.2); BILIRUBIN,TOTAL 1.1 mg/dL (0.2-1.0); CALCIUM 10.8 mg/dL (8.5-10.3); CREATININE 2.2 mg/dL (0.6-1.2); MAGNESIUM 2.8 mg/dL (1.7-2.8); TOTAL PROTEIN 10.1 g/dL (6.7-8.2)
[2020-09-08] MEDS ORDERED: LACTATED RINGERS 1,000 ML IV STA (10:50)
[2020-09-08] MEDS ORDERED: PROCHLORPERAZINE 10 MG/2 ML VIAL IVP STA (11:42)
[2020-09-08] MEDS ORDERED: diphenhydrAMINE ELIXIR 25 MG/10 ML UDC PO STA (12:59)
[2020-09-08] MEDS ORDERED: METOCLOPRAMIDE 10 MG/2 ML VIAL IVP STA (13:33)
[2020-09-08 15:20] VITALS: BP 202/131
== END 2020-09-08 15:21 | disposition home or self-care (01) ==
LOC: EDUNIT# → ED 10:01
DX: R11.15 Cyclical vomiting syndrome unrelated to migraine (principal); R10.13 Epigastric pain; I10 Essential (primary) hypertension; Z87.11 Personal history of peptic ulcer disease; Z87.19 Personal history of other diseases of the digestive system; F17.200 Nicotine dependence, unspecified, uncomplicated
CPT/HCPCS: 36415; 80053; 83690; 83735; 96365; 96375; 96376; 99284; A9270; J0131; J1200; J2765; J7120

== ENCOUNTER 2020-09-11 16:54 | Outpatient (CLI) | payer MEDICAID | END 2020-09-11 16:55 | disposition critical access hospital (66) | LOC: EMS 16:54 | PROVIDERS: ATTEND Registered Nurse | DX: R10.12 Left upper quadrant pain (principal); M54.89 Other dorsalgia; R11.0 Nausea | CPT/HCPCS: A0425; A0427; A0999 ==

== ENCOUNTER 2020-09-11 17:23 | Observation (INO) | payer MEDICAID ==
[2020-09-11] MEDS ORDERED: ONDANSETRON 4 MG/2 ML VIAL IVP STA ×2 (17:45→20:10)
[2020-09-11] MEDS ORDERED: SODIUM CHLORIDE 0.9% 1,000 ML IV STA ×4 (17:45→19:10)
[2020-09-11] MEDS ORDERED: HALOPERIDOL 5 MG/ML VIAL IVP ONE (17:46)
[2020-09-11 18:07] LABS: BASOPHILS # (AUTO) 0.1 10^3/uL (0.0-0.1); BASOPHILS % (AUTO) 0.8 %; EOSINOPHILS # (AUTO) 0.1 10^3/uL (0.0-0.7); EOSINOPHILS % (AUTO) 1.6 %; HCT - HEMATOCRIT 55.6 % (42.0-52.0); HGB - HEMOGLOBIN 18.9 g/dL (14.0-18.0); LYMPHOCYTES # (AUTO) 1.3 10^3/uL (1.5-3.5); LYMPHOCYTES % (AUTO) 20.8 %; MEAN CORPUSCULAR HEMOGLOBIN 28.1 pg (27.0-31.0); MEAN CORPUSCULAR VOLUME 82.7 fL (80.0-94.0); MEAN PLATELET VOLUME 8.8 fL (7.4-11.4); MONOCYTES % (AUTO) 16.1 %; NEUTROPHILS # (AUTO) 3.7 10^3/uL (1.5-6.6); NEUTROPHILS % (AUTO) 60.5 %; PLT - PLATELET COUNT 322 10^3/uL (130-450); RED BLOOD COUNT 6.72 10^6/uL (4.70-6.10); RED CELL DISTRIBUTION WIDTH 15.4 % (12.0-15.0); WHITE BLOOD COUNT 6.2 x10^3/uL (4.8-10.8)
--- NOTE | 2020-09-11 18:08 | ED Physician Documentation ---
History of Present Illness - Stated complaint Stated Complaint: LUQ PX - Chief complaint Chief Complaint: Abd Pain - Additonal information Additional information: 39-year-old gentleman presents to the emergency department with uncontrolled ab dominal pain and vomiting. Seen 3 days ago for similar. He does have multiple ER visits for recurrent abdominal pain that is thought to be most likely due to cannabinoid hyperemesis. However patient denies any cannabis use for over 3 weeks. In fact he was seen here in this emergency department 3 days ago for abdominal pain and vomiting. multiple doses of antiemetic were presecibed to acheive symptom control in the ED and he was dc with a rx for compazine, pepcid and phenergan. At the time of last ED visit he did have mild LAZARO with Cr. of 2.2 Despite taking these antiemetics at home he continues to vomit and states that he really has not kept anything down for 72 hours. He reports not making any urine for 24 hours. Denies hemataemesis. No fevers. Denies hematochezia or melena. He appears somewhat lethargic on presentation. Mucous membranes very dry. Review of Systems Constitutional: reports: Reviewed and negative Eyes: reports: Reviewed and negative Ears: reports: Reviewed and negative Nose: reports: Reviewed and negative Throat: reports: Reviewed and negative Cardiac: reports: Reviewed and negative Respiratory: reports: Reviewed and negative GI: reports: Abdominal Pain, Nausea, Vomiting. denies: Constipation, Bloody / black stool : reports: Other (no urinary output for 24 hours). denies: Dysuria, Frequency, Hesitancy Skin: reports: Reviewed and negative Musculoskeletal: reports: Reviewed and negative Neurologic: reports: Reviewed and negative PD PAST MEDICAL HISTORY - Past Medical History Past Medical History: Yes Cardiovascular: Hypertension Respiratory: None Neuro: None Endocrine/Autoimmune: None GI: GERD, Ulcers, Pancreatitis : None HEENT: None Psych: Depression, Anxiety, Panic attacks, Other Musculoskeletal: None Derm: None - Past Surgical History Past Surgical History: No Ortho: Other - Present Medications Home Medications: Ambulatory Orders Medication Instructions Recorded Confirmed Famotidine [Pepcid] 20 mg PO DAILY #20 tab 09/08/20 09/11/20 Prochlorperazine Supp [Compazine 25 mg OK Q8H PRN #10 supp 09/08/20 09/11/20 Supp] Promethazine [Phenergan] 25 mg PO Q6H PRN #25 tab 09/08/20 09/11/20 - Allergies Allergies/Adverse Reactions: Allergies Allergy/AdvReac Type Severity Reaction Status Date / Time ketorolac [From Toradol] AdvReac Anxiety Verified 09/11/20 17:34 - Social History Does the pt smoke?: Yes Smoking Status: Current every day smoker Does the pt drink ETOH?: Yes Does the pt have substance abuse?: Yes - Immunizations Immunizations are current?: Yes Immunizations: Other immun not current - POLST Patient has POLST: No POLST Status: Full Code PD ED PE EXPANDED - General General: Alert, In Pain, Other (thin appearance) - Neck Neck: Supple w/out meningeal sx. No: Adenopathy - Cardiac Cardiac: Regular Rate, Regular Rhythm, Radial strong equal, Pedal strong equal, Cap refill < 2 sec. No: Murmur Present - Respiratory Respiratory: Clear to ausultation sherrell. No: Distress, Labored - Abdomen Abdomen: Normal Bowel sounds, Tender to palpation (Epigastric and left upper quadrant abdominal tenderness without guarding or rebound.) - Back Back: Normal ROM - Neuro Neuro: Alert and Oriented X 3, CNII-XII intact - GCS Eye Opening: Spontaneous Motor: Obeys Commands Verbal: Oriented Total: 15 Results - Vitals Vitals: Vital Signs - 24 hr 09/11/20 09/11/20 09/11/20 17:28 18:30 19:37 Temperature 36.9 C 36.9 C Heart Rate 88 52 L 73 Respiratory 16 19 18 Rate Blood Pressure 153/108 H 140/106 H 211/131 H O2 Saturation 97 97 99 09/11/20 09/11/20 20:41 21:03 Temperature 36.9 C 36.9 C Heart Rate 72 68 Respiratory 18 16 Rate Blood Pressure 206/126 H 136/83 H O2 Saturation 98 99 Oxygen O2 Source Room air - Labs Labs: Laboratory Tests 09/11/20 09/11/20 09/11/20 18:03 18:03 18:03 WBC 6.2 RBC 6.72 H Hgb 18.9 H Hct 55.6 H MCV 82.7 MCH 28.1 MCHC 34.0 RDW 15.4 H Plt Count 322 MPV 8.8 Neut # (Auto) 3.7 Lymph # (Auto) 1.3 L [place] # (Auto) 1.0 Eos # (Auto) 0.1 Baso # (Auto) 0.1 Absolute Nucleated RBC 0.00 Nucleated RBC % 0.0 Sodium 132 L Potassium 3.0 L Chloride 88 L Carbon Dioxide 27 Anion Gap 17.0 H BUN 38 H Creatinine 1.9 H Estimated GFR (MDRD) 48 L Glucose 134 H Lactic Acid Calcium 9.6 Total Bilirubin 1.7 H AST 24 ALT 28 Alkaline Phosphatase 71 Total Creatine Kinase 263 Total Protein 8.9 H Albumin 5.2 Globulin 3.7 Albumin/Globulin Ratio 1.4 Lipase 40 09/11/20 09/11/20 09/11/20 18:13 20:24 20:24 WBC 6.9 RBC 6.08 Hgb 17.2 Hct 50.7 MCV 83.4 MCH 28.3 MCHC 33.9 RDW 14.5 Plt Count 294 MPV 9.1 Neut # (Auto) Lymph # (Auto) [place] # (Auto) Eos # (Auto) Baso # (Auto) Absolute Nucleated RBC Nucleated RBC % Sodium 133 L Potassium 3.2 L Chloride 95 L Carbon Dioxide 26 Anion Gap 12.0 BUN 33 H Creatinine 1.6 H Estimated GFR (MDRD) 59 L Glucose 124 H Lactic Acid 1.5 Calcium 8.5 Total Bilirubin AST ALT Alkaline Phosphatase Total Creatine Kinase Total Protein Albumin Globulin Albumin/Globulin Ratio Lipase PD MEDICAL DECISION MAKING - ED course Complexity details: reviewed results, re-evaluated patient, considered differential, d/w patient ED course: 39-year-old male who is well-known to this emergency department returns with uncontrolled nausea and vomiting. Historically it has been presumed that he has hyperemesis cannabis however patient reports to this provider that he has not used any cannabis for nearly 3 weeks. He was seen in this ER 3 days ago for similar concern. Patient states that despite taking his antiemetics and acid reduction pills he continues to vomit. He has had no fevers but is excessively dehydrated and has not made any urine for 24 hours. On presentation he appears markedly dehydrated. He is a very concentrated hemoglobin as well is an elevated BUN and creatinine. We initially started with 2 L of crystalloid without relief of the anuria therefore we did proceed with an additional 2 L of crystalloid. His nausea did improve initially with Zofran and haldol but then returned after trial sips of clear liquids. Therefore additional Zofran as well as Phenergan were prescribed. Pt did again attempt sips of water and 7-up, but then stopped as he became nauseated again. We did repeat his hemoglobin and BMP following the 4 L of IV fluids which showed a mild improvement in LAZARO. However he had become hypertensive (for a brief period of time) and was still unable to void for us. An ED bladder scan did show about 250 ml of urine. At this time the patient will be brought into the emergency department for continued management of his nausea and dehydration. I have spoken with Dr. Coronado who has agreed to see and evalaute patient. Departure - Departure Disposition: ED Place in Observation Clinical Impression: Dehydration, Acute kidney injury, Nausea
[2020-09-11 18:21] LABS: ALBUMIN 5.2 g/dL (3.2-5.5); ALBUMIN/GLOBULIN RATIO 1.4 (1.0-2.2); BILIRUBIN,TOTAL 1.7 mg/dL (0.2-1.0); CALCIUM 9.6 mg/dL (8.5-10.3); CREATININE 1.9 mg/dL (0.6-1.2); TOTAL PROTEIN 8.9 g/dL (6.7-8.2)
[2020-09-11] MEDS ORDERED: POTASSIUM CHLOR 10 MEQ/100 ML 10 MEQ/100 ML BAG IV STA ×3 (18:24)
[2020-09-11] MEDS ORDERED: HYDROmorphone 1 MG/ML CARPUJECT IVP STA ×2 (20:10→20:48)
[2020-09-11] MEDS ORDERED: PROMETHAZINE INJ 25 MG in SODIUM CHLORIDE 0.9% 50 ML IV STA (20:23)
[2020-09-11 20:28] LABS: HCT - HEMATOCRIT 50.7 % (42.0-52.0); HGB - HEMOGLOBIN 17.2 g/dL (14.0-18.0); MEAN CORPUSCULAR HEMOGLOBIN 28.3 pg (27.0-31.0); MEAN CORPUSCULAR HGB CONC 33.9 g/dL (32.0-36.0); MEAN CORPUSCULAR VOLUME 83.4 fL (80.0-94.0); MEAN PLATELET VOLUME 9.1 fL (7.4-11.4); RED BLOOD COUNT 6.08 10^6/uL (4.70-6.10); RED CELL DISTRIBUTION WIDTH 14.5 % (12.0-15.0); WHITE BLOOD COUNT 6.9 x10^3/uL (4.8-10.8)
[2020-09-11] MEDS ORDERED: PROMETHAZINE 25 MG/1 ML VIAL ONE (20:40)
[2020-09-11 20:42] LABS: CALCIUM 8.5 mg/dL (8.5-10.3); POTASSIUM 3.2 mmol/L (3.5-5.0)
[2020-09-11 20:50] LABS: CREATININE 1.6 mg/dL (0.6-1.2)
[2020-09-11] MEDS ORDERED: SODIUM CHLORIDE FLUSH 0.9% 10 ML SYRINGE IVP PRN (21:24)
[2020-09-11] MEDS ORDERED: ONDANSETRON 4 MG/2 ML VIAL IVP PRN (21:24)
--- NOTE | 2020-09-11 21:34 | HISTORY & PHYSICAL EXAMINATION ---
Chief Complaint - Chief Complaint Chief Complaint: Intractable nausea and vomiting History of Present Illness - Admitted From Admitted From:: [facility] ED - History Obtained From Records Reviewed: yes History obtained from: patient - History of Present Illness HPI Comment/Other: Patient is a 39-year-old male who is well-known to the hospitalist service and who presented today with complaint of intractable nausea vomiting, and abdominal pain. This symptoms have been worked up extensively in the past with no significant findings. He uses marijuana and it is believed his nausea and vomiting was related to this. During his presentation he states that he has not used marijuana in about 3 weeks. He was seen in the ED 3 days ago, treated and then discharged with advised to return if his symptoms worsen. He returned today with worsening symptoms. He last vomited around 5 PM today. He last urinated yesterday. His last bowel movement was about 2 to 3 days ago. He denies chest pain, dyspnea, fever or chills. He reports abdominal pain, nausea and vomiting. In the ED work-up included a BMP which showed a creatinine of 1.9. He was given a total of 4 L of fluid in the ED. Over 4 to 5 hours in the ED he was unable to produce any urine. Letter further treatment. History - Past Medical History Cardiovascular: reports: Hypertension Respiratory: reports: None Neuro: reports: None Endocrine/Autoimmune: reports: None GI: reports: GERD, Ulcers, Pancreatitis : reports: None HEENT: reports: None Psych: reports: Depression, Anxiety, Panic attacks, Other Musculoskeletal: reports: None Derm: reports: None MRSA Hx?: No - Past Surgical History Ortho: reports: Other - Family & Social History Family History: Mother: Alive and Well, Hypertension, Father: Alive and Well, Hypertension, Renal Disease/Failure, Other family: Mental Illness Family History Comment/Other: Patient's mother has obesity, hypertension, arthri tis and history of aortic dissection with aneurysm at the age of 50. One brother had a bicuspid aortic valve and had an aneurysm in his 20s. Social History Notes: He is unmarried. He does have 6 children with several mothers. His youngest child is 3 year old and his oldest is 21. 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 He now works in [employer]. He was drinking up to a pack and a half of beer a day when he stopped drinking in 2016. He drinks a beer once every 2 weeks. He does use cannabis daily he states that he smokes about a gram a day. The patient does smoke cigarettes about half a pack a day and has been doing so since his teen years. He denies any use of cocaine, heroin, LSD, methamphetamines. He denies any IV drug abuse. He is still living with his mother and father and 1 of his brothers. While he is independent with activities of daily living with regard to dressing himself and feeding himself he is usually too tired to do much else. He still cooks for the family in general. In any given time many of his siblings, nieces and nephews are around the house and he participates in cooking and cleaning in the kitchen. - Substance History Use: Uses substance without health or social issues: Cannabis, Tobacco - POLST Patient has POLST: No POLST Status: Full Code Meds/Allgy - Home Medications Home Medications: Ambulatory Orders Medication Instructions Recorded Confirmed Famotidine [Pepcid] 20 mg PO DAILY #20 tab 09/08/20 09/11/20 Prochlorperazine Supp [Compazine 25 mg OK Q8H PRN #10 supp 09/08/20 09/11/20 Supp] Promethazine [Phenergan] 25 mg PO Q6H PRN #25 tab 09/08/20 09/11/20 - Allergies Allergies/Adverse Reactions: Allergies Allergy/AdvReac Type Severity Reaction Status Date / Time ketorolac [From Toradol] AdvReac Anxiety Verified 09/11/20 17:34 Review of Systems - Constitutional Constitutional: reports: Poor appetite. denies: Fatigue, Fever, Chills - Eyes Eyes: denies: Pain - Ears, Nose & Throat Ears, Nose & Throat: denies: Ear pain, Sore throat - Cardiovascular Cariovascular: denies: Irregular heart rate, Palpitations, Chest pain, Edema, Lightheadedness, Syncope, Exertional dyspnea - Respiratory Respiratory: denies: Sputum production, Wheezing, SOB at rest, SOB with exertion - Gastrointestinal Gastrointestinal: reports: Abdominal pain, Nausea, Vomiting, Poor appetite. denies: Abdominal distention, Constipation, Diarrhea, Coffee grounds emesis, Reflux/heartburn - Genitourinary Genitourinary: denies: Dysuria, Frequency, Urgency, Hematuria, Incontinence, Flank pain, Nocturia - Musculoskeletal Musculoskeletal: denies: Muscle pain, Back pain, Muscle aches, Limited range of motion, Muscle weakness - Integumentary Integumentary: denies: Rash, Pruritis, Lesions - Neurological Neurological: denies: General weakness, Focal weakness, Headache, Dizziness - Psychiatric Psychiatric: denies: Depression, Anxiety - Endocrine Endocrine: denies: Polyuria, Polydypsia - Hematologic/Lymphatic Hematologic/Lymphatic: denies: Anemia, Bruising, Petechiae Prior Level of Functionality: Patient is independent of activities of daily living Exam - Vital Signs Vital Signs: Vital Signs x48h Temp Pulse Resp BP Pulse Ox 09/11/20 21:03 36.9 C 68 16 136/83 H 99 09/11/20 20:41 36.9 C 72 18 206/126 H 98 09/11/20 19:37 36.9 C 73 18 211/131 H 99 09/11/20 18:30 52 L 19 140/106 H 97 09/11/20 17:28 36.9 C 88 16 153/108 H 97 - Physical Exam General Appearance: positive: Alert, Mild distress, Moderate distress Eyes Bilateral: positive: PERRL, EOMI ENT: positive: Dry mucous membranes Neck: positive: No JVD, Trachea midline Respiratory: positive: Chest non-tender, No respiratory distress, Breath sounds nml. negative: Wheezes, Rales, Rhonchi Cardiovascular: positive: Regular rate & rhythm, No murmur Abdomen: positive: Non-tender, No organomegaly, Nml bowel sounds, No distention. negative: Guarding, Rebound Back: positive: Nml inspection Skin: positive: Color nml, No rash, Warm, Dry Extremities: positive: Non-tender, Full ROM, Nml appearance, No pedal edema Neurologic/Psychiatric: positive: Oriented x3, CN's nml (2-12), Mood/affect nml Conclusion/Plan - Problem List (1) Acute kidney injury Conclusion/Plan: Likely related to dehydration related to nausea and vomiting. Patient was given 4 L of IV fluids in the ED. We will continue IV hydration with normal saline +20 mEq of potassium at 125 mils per hour. Creatinine improved from 1.9-1.6. Anticipating further improvement. (2) Dehydration Conclusion/Plan: Secondary to nausea and vomiting. Actively hydrating patient. (3) Hypokalemia Conclusion/Plan: Potassium was 3.0. Patient was given 20 mEq of potassium in the ED. 40 mEq of potassium ordered IV to be given over 4 hours. We will recheck morning labs (4) Nausea & vomiting Conclusion/Plan: On chronic. It has been thought to be related to his use of marijuana in the past. Zofran and Phenergan ordered as needed. Qualifiers: Vomiting type: unspecified Vomiting Intractability: non-intractable Qualified Code(s): R11.2 - Nausea with vomiting, unspecified - Lab Results Fish Bones: 09/11/20 20:24 09/11/20 20:24 Core Measures - Anticipated LOS I expect patient to be DC'd or transferred within 96 hours.: Yes - DVT/VTE - Prophylaxis VTE/DVT Device ordered at admit?: Yes VTE/DVT Prophylaxis med ordered at admit?: No
[2020-09-11 22:40] LABS: GLUCOSE, URINE (UA) NEGATIVE (NEGATIVE); KETONES,URINE (UA) NEGATIVE (NEGATIVE); LEUKOCYTE ESTERASE, URINE NEGATIVE (NEGATIVE); NITRITE,URINE NEGATIVE (NEGATIVE); OCCULT BLOOD,URINE NEGATIVE (NEGATIVE); PROTEIN,URINE 30 mg/dL (NEGATIVE); UROBILINOGEN,URINE 0.2 (NORMAL) E.U./dL (NORMAL)
[2020-09-11 22:41] LABS: CLARITY,URINE CLEAR (CLEAR)
[2020-09-11 22:44] LABS: BILIRUBIN,URINE NEGATIVE (NEGATIVE); ICTOTEST,URINE NEGATIVE
[2020-09-11 22:47] LABS: BACTERIA,URINE None Seen /HPF (None Seen); CASTS, URINE 3-5 Hyaline Casts /LPF; RBC,URINE 0-5 /HPF (0-5); SQUAMOUS EPITHELIAL CELL,UR FEW Squamous (<= Few); WBC,URINE 0-3 /HPF (0-3)
[2020-09-11] MEDS: NS W/20 MEQ KCL 1,000 ML IV SCH (22:54)
[2020-09-11] MEDS: POTASSIUM CHLOR 10 MEQ/100 ML 10 MEQ/100 ML BAG IV SCH (22:55)
[2020-09-11 23:25] LABS: B. PARAPERTUSSIS- RESP PCR PAN NOT DETECTED; B. PERTUSSIS- RESP PCR PANEL NOT DETECTED; C. PNEUMONIAE- RESP PCR PANEL NOT DETECTED; CORONAVIRUS 229E-RESP PCR NOT DETECTED; CORONAVIRUS HKU1-RESP PCR NOT DETECTED; CORONAVIRUS NL63-RESP PCR NOT DETECTED; CORONAVIRUS OC43-RESP PCR NOT DETECTED; HUMAN METAPNEUMOVIRUS NOT DETECTED; INFLUENZA A- RESP PCR PANEL NOT DETECTED; INFLUENZA B - RESP PCR PANEL NOT DETECTED; M. PNEUMONIAE- RESP PCR PANEL NOT DETECTED; PARAINFLUENZA VIRUS 1 NOT DETECTED; PARAINFLUENZA VIRUS 2 NOT DETECTED; PARAINFLUENZA VIRUS 3 NOT DETECTED; PARAINFLUENZA VIRUS 4 NOT DETECTED; RHINOVIRUS/ENTEROVIRUS NOT DETECTED; RSV- RESP PCR PANEL NOT DETECTED; SARS-CoV-2 -RESP PCR PANEL NOT DETECTED
[2020-09-12] MEDS: SODIUM CHLORIDE FLUSH 0.9% 10 ML SYRINGE IVP SCH ×3 (01:06→17:31)
[2020-09-12] MEDS: POTASSIUM CHLOR 10 MEQ/100 ML 10 MEQ/100 ML BAG IV SCH ×3 (01:06→03:43)
[2020-09-12 05:15] LABS: BASOPHILS % (AUTO) 0.5 %; EOSINOPHILS # (AUTO) 0.2 10^3/uL (0.0-0.7); EOSINOPHILS % (AUTO) 2.4 %; HCT - HEMATOCRIT 44.8 % (42.0-52.0); HGB - HEMOGLOBIN 14.8 g/dL (14.0-18.0); LYMPHOCYTES # (AUTO) 2.6 10^3/uL (1.5-3.5); LYMPHOCYTES % (AUTO) 34.5 %; MEAN CORPUSCULAR HEMOGLOBIN 28.3 pg (27.0-31.0); MEAN CORPUSCULAR VOLUME 85.7 fL (80.0-94.0); MEAN PLATELET VOLUME 9.4 fL (7.4-11.4); MONOCYTES % (AUTO) 13.2 %; NEUTROPHILS # (AUTO) 3.7 10^3/uL (1.5-6.6); NEUTROPHILS % (AUTO) 49.1 %; PLT - PLATELET COUNT 279 10^3/uL (130-450); RED BLOOD COUNT 5.23 10^6/uL (4.70-6.10); RED CELL DISTRIBUTION WIDTH 14.5 % (12.0-15.0); WHITE BLOOD COUNT 7.6 x10^3/uL (4.8-10.8)
[2020-09-12 05:23] LABS: CALCIUM 8.3 mg/dL (8.5-10.3); CREATININE 1.3 mg/dL (0.6-1.2); POTASSIUM 3.7 mmol/L (3.5-5.0)
[2020-09-12] MEDS: NS W/20 MEQ KCL 1,000 ML IV SCH ×3 (06:46→22:20)
[2020-09-12] MEDS: HYDROmorphone 1 MG/ML CARPUJECT IVP PRN ×3 (09:16→17:53)
[2020-09-12] MEDS: NICOTINE 7 MG PATCH TOP SCH (09:20)
[2020-09-12] MEDS: PROMETHAZINE 25 MG/1 ML VIAL IM PRN ×2 (11:52→17:59)
[2020-09-12] MEDS: ONDANSETRON ODT 4 MG TABLET TL SCH (16:21)
--- NOTE | 2020-09-12 18:32 | PHARMACY PROGRESS NOTE ---
- Best Possible Medication History Admit Date and Time: 09/11/202123 Processed by: Nursing Medication History completed: Yes As the person ultimately responsible for medication therapy, providers are able to order a medication from an existing home medication list in [facility] via the "Reconcile Routine" prior to Confirmation of that medication by ict support and test engineers. Such practice is discouraged except when the physician, in their clinical judgment, deems that a medical need exists for a medication without regard to previous use.
--- NOTE | 2020-09-12 18:58 | PROVIDER PROGRESS NOTE ---
Assessment/Plan - Problem List (1) Acute kidney injury Assessment/Plan: Improving. Patient's creatinine today is 1.3. We will continue IV hydration. Anticipating further improvement/resolution by tomorrow. Anticipating discharge home tomorrow. (2) Dehydration Assessment/Plan: Improving. Continue IV hydration (3) Hypokalemia Assessment/Plan: Resolved. Patient's potassium today was 3.7. (4) Nausea & vomiting Qualifiers: Vomiting type: unspecified Vomiting Intractability: non-intractable Qualified Code(s): R11.2 - Nausea with vomiting, unspecified Assessment/Plan: Continue Zofran and Phenergan. Zofran ODT was also ordered to be administered before meals. - Current Meds Current Meds: Current Medications Generic Name Dose Route Start Last Admin Trade Name Freq PRN Reason Stop Dose Admin Hydromorphone HCl 1 mg 09/11/20 21:45 09/12/20 17:53 Hydromorphone 1 Mg/Ml Carpuject IVP 1 mg Q3H PRN Administration PAIN Potassium Chloride/Sodium Chloride 1,000 mls @ 125 mls/hr 09/11/20 22:00 09/12/20 14:52 Normal Saline 0.9% W/20 Meq Kcl IV 125 mls/hr .Q8H SCOTT Administration Nicotine 1 patch 09/12/20 09:00 09/12/20 09:20 Nicotine 7 Mg Patch TOP 1 patch DAILY SCOTT Administration Ondansetron HCl 4 mg 09/11/20 21:24 09/12/20 09:16 Ondansetron 4 Mg/2 Ml Vial IVP 4 mg Q6HR PRN Administration Nausea / Vomiting Ondansetron HCl 4 mg 09/12/20 16:00 09/12/20 16:21 Ondansetron Odt 4 Mg Tablet TL 4 mg AC SCOTT Administration Promethazine HCl 25 mg 09/11/20 21:24 09/12/20 17:59 Promethazine 25 Mg/1 Ml Vial IM 25 mg Q6HR PRN Administration Nausea / Vomiting Sodium Chloride 10 ml 09/12/20 01:00 09/12/20 17:31 Sodium Chloride Flush 0.9% 10 Ml Syringe IVP Not Given 0100,0900,1700 SCOTT - Lab Result Fish Bone Diagrams: 09/12/20 04:10 09/12/20 04:10 - Additional Planning My Orders: My Active Orders 09/11/20 21:24 Activity Orders [RC] Q2HR IO [RC] IOSHIFT Initiate Bowel Care Protocol [RC] .protocol Initiate Flu Vaccine Screening [RC] ONCE Initiate Line Care Protocol [RC] QSHIFT Initiate Personal Care Protoco [RC] .protocol Initiate Pneumonia Vaccine Scr [RC] ONCE Vital Signs [RC] Q4H Ondansetron Inj [Zofran Inj] 4 mg IVP Q6HR PRN Promethazine Inj [Phenergan Inj] 25 mg IM Q6HR PRN Sodium Chloride Flush 0.9% [Normal Saline Flush 0.9%] 10 ml IVP PRN PRN Code Status [OTHERS] Routine Condition of Patient [OTHERS] Routine DVT Prophylaxis [OTHERS] Routine 09/11/20 21:45 HYDROmorphone 1MG CARP [Dilaudid Inj Carp] 1 mg IVP Q3H PRN 09/11/20 22:00 Ns W/20 Meq KCl [Normal Saline 0.9% W/20 Meq KCl] 1,000 ml IV 125 mls/hr 09/12/20 01:00 Sodium Chloride Flush 0.9% [Normal Saline Flush 0.9%] 10 ml IVP 0100,0900,1700 09/12/20 01:20 Telemetry- [RC] Q4HR 09/12/20 09:00 Nicotine 7 mg Patch [Nicoderm] 1 patch TOP DAILY 09/13/20 05:00 BMP - BASIC METABOLIC PANEL [CHEM] DAILYLAB CBC - COMP BLD CT W/AUTO DIFF [HEME] DAILYLAB 09/14/20 05:00 BMP - BASIC METABOLIC PANEL [CHEM] DAILYLAB CBC - COMP BLD CT W/AUTO DIFF [HEME] DAILYLAB 09/15/20 05:00 BMP - BASIC METABOLIC PANEL [CHEM] DAILYLAB 09/16/20 05:00 BMP - BASIC METABOLIC PANEL [CHEM] DAILYLAB Subjective - Subjective Patient Reports: Other (Patient awake, alert and resting in bed. Planes of abdominal pain especially with eating. He denied vomiting or dry heaving but states that he is still feeling nauseous.) Objective Vital Signs: Vital Signs - 24 hr 09/11/20 09/11/20 09/11/20 19:37 20:41 21:03 Temperature 36.9 C 36.9 C 36.9 C Heart Rate 73 72 68 Heart Rate [ Brachial] Respiratory 18 18 16 Rate Blood Pressure 211/131 H 206/126 H 136/83 H Blood Pressure [Right Brachial artery] O2 Saturation 99 98 99 09/11/20 09/11/20 09/12/20 21:41 22:29 00:00 Temperature 36.9 C 36.6 C 36.6 C Heart Rate 60 Heart Rate [ 55 L 43 L Brachial] Respiratory 16 16 16 Rate Blood Pressure 126/79 Blood Pressure 126/80 107/67 [Right Brachial artery] O2 Saturation 98 97 97 09/12/20 09/12/20 09/12/20 03:47 08:45 12:30 Temperature 36.6 C 37.1 C 36.3 C L Heart Rate Heart Rate [ 72 48 L 49 L Brachial] Respiratory 16 16 16 Rate Blood Pressure Blood Pressure 115/72 121/74 119/73 [Right Brachial artery] O2 Saturation 97 98 99 09/12/20 16:00 Temperature 36.4 C L Heart Rate Heart Rate [ 48 L Brachial] Respiratory 18 Rate Blood Pressure Blood Pressure 127/73 [Right Brachial artery] O2 Saturation 97 Oxygen O2 Source Room air I&O (Last 24 Hrs): Intake and Output Totals x24h 09/10/20 09/11/20 09/12/20 23:59 23:59 23:59 Intake Total 4251 3973.333 Output Total 400 Balance 4251 3573.333 General: Alert, Oriented x3, Cooperative, Mild distress HEENT: PERRLA, EOMI Neck: Supple, No JVD Neuro: Alert, Oriented Times 3 Cardiovascular: Regular rate, Normal S1, Normal S2, No murmurs Respiratory: Chest non-tender, No respiratory distress, Breath sounds nml Abdomen: Normal bowel sounds, Soft, No tenderness Extremities: No clubbing, No cyanosis, No edema Skin: No rashes - Results Results: Laboratory Results WBC 7.6 x10^3/uL (4.8-10.8) 09/12/20 04:10 RBC 5.23 10^6/uL (4.70-6.10) 09/12/20 04:10 Hgb 14.8 g/dL (14.0-18.0) 09/12/20 04:10 Hct 44.8 % (42.0-52.0) 09/12/20 04:10 MCV 85.7 fL (80.0-94.0) 09/12/20 04:10 MCH 28.3 pg (27.0-31.0) 09/12/20 04:10 MCHC 33.0 g/dL (32.0-36.0) 09/12/20 04:10 RDW 14.5 % (12.0-15.0) 09/12/20 04:10 Plt Count 279 10^3/uL (130-450) 09/12/20 04:10 MPV 9.4 fL (7.4-11.4) 09/12/20 04:10 Neut # (Auto) 3.7 10^3/uL (1.5-6.6) 09/12/20 04:10 Lymph # (Auto) 2.6 10^3/uL (1.5-3.5) 09/12/20 04:10 [place] # (Auto) 1.0 10^3/uL (0.0-1.0) 09/12/20 04:10 Eos # (Auto) 0.2 10^3/uL (0.0-0.7) 09/12/20 04:10 Baso # (Auto) 0.0 10^3/uL (0.0-0.1) 09/12/20 04:10 Absolute Nucleated RBC 0.00 x10^3/uL 09/12/20 04:10 Nucleated RBC % 0.0 /100WBC 09/12/20 04:10 Sodium 132 mmol/L (135-145) L 09/12/20 04:10 Potassium 3.7 mmol/L (3.5-5.0) 09/12/20 04:10 Chloride 100 mmol/L (101-111) L 09/12/20 04:10 Carbon Dioxide 25 mmol/L (21-32) 09/12/20 04:10 Anion Gap 7.0 (6-13) 09/12/20 04:10 BUN 25 mg/dL (6-20) H 09/12/20 04:10 Creatinine 1.3 mg/dL (0.6-1.2) H 09/12/20 04:10 Estimated GFR (MDRD) 74 (>89) L 09/12/20 04:10 Glucose 100 mg/dL (70-100) 09/12/20 04:10 Lactic Acid 1.5 mmol/L (0.5-2.2) 09/11/20 18:13 Calcium 8.3 mg/dL (8.5-10.3) L 09/12/20 04:10 Magnesium 2.4 mg/dL (1.7-2.8) 09/11/20 20:24 Total Bilirubin 1.7 mg/dL (0.2-1.0) H 09/11/20 18:03 AST 24 IU/L (10-42) 09/11/20 18:03 ALT 28 IU/L (10-60) 09/11/20 18:03 Alkaline Phosphatase 71 IU/L (42-121) 09/11/20 18:03 Total Creatine Kinase 263 IU/L (22-269) 09/11/20 18:03 Total Protein 8.9 g/dL (6.7-8.2) H 09/11/20 18:03 Albumin 5.2 g/dL (3.2-5.5) 09/11/20 18:03 Globulin 3.7 g/dL (2.1-4.2) 09/11/20 18:03 Albumin/Globulin Ratio 1.4 (1.0-2.2) 09/11/20 18:03 Lipase 40 U/L (22-51) 09/11/20 18:03 Urine Color YELLOW 09/11/20 22:20 Urine Clarity CLEAR (CLEAR) 09/11/20 22:20 Urine pH 6.0 PH (5.0-7.5) 09/11/20 22:20 Ur Specific [place] >=1.030 (1.002-1.030) H 09/11/20 22:20 Urine Protein 30 mg/dL (NEGATIVE) H 09/11/20 22:20 Urine Glucose (UA) NEGATIVE mg/dL (NEGATIVE) 09/11/20 22:20 Urine Ketones NEGATIVE mg/dL (NEGATIVE) 09/11/20 22:20 Urine Occult Blood NEGATIVE (NEGATIVE) 09/11/20 22:20 Urine Nitrite NEGATIVE (NEGATIVE) 09/11/20 22:20 Urine Bilirubin NEGATIVE (NEGATIVE) 09/11/20 22:20 Urine Urobilinogen 0.2 (NORMAL) E.U./dL (NORMAL) 09/11/20 22:20 Ur Leukocyte Esterase NEGATIVE (NEGATIVE) 09/11/20 22:20 Urine RBC 0-5 /HPF (0-5) 09/11/20 22:20 Urine WBC 0-3 /HPF (0-3) 09/11/20 22:20 Ur Squamous Epith Cells FEW Squamous (<= Few) 09/11/20 22:20 Urine Bacteria None Seen /HPF (None Seen) 09/11/20 22:20 Urine Casts 3-5 Hyaline Casts /LPF 09/11/20 22:20 Ur Microscopic Review INDICATED 09/11/20 22:20 Urine Culture Comments NOT INDICATED 09/11/20 22:20 Nasal Adenovirus (PCR) NOT DETECTED 09/11/20 21:42 Nasal B. parapertussis DNA (PCR) NOT DETECTED 09/11/20 21:42 Nasal Coronavir 229E PCR NOT DETECTED 09/11/20 21:42 Nasal Coronavir HKU1 PCR NOT DETECTED 09/11/20 21:42 Nasal Coronavir NL63 PCR NOT DETECTED 09/11/20 21:42 Nasal Coronavir OC43 PCR NOT DETECTED 09/11/20 21:42 Nasal Enterovir/Rhinovir PCR NOT DETECTED 09/11/20 21:42 Nasal Influenza B PCR NOT DETECTED 09/11/20 21:42 Nasal Influenza A PCR NOT DETECTED 09/11/20 21:42 Nasal Parainfluen 1 PCR NOT DETECTED 09/11/20 21:42 Nasal Parainfluen 2 PCR NOT DETECTED 09/11/20 21:42 Nasal Parainfluen 3 PCR NOT DETECTED 09/11/20 21:42 Nasal Parainfluen 4 PCR NOT DETECTED 09/11/20 21:42 Nasal RSV (PCR) NOT DETECTED 09/11/20 21:42 Nasal B.pertussis DNA PCR NOT DETECTED 09/11/20 21:42 Nasal C.pneumoniae (PCR) NOT DETECTED 09/11/20 21:42 Seun Human Metapneumo PCR NOT DETECTED 09/11/20 21:42 Nasal M.pneumoniae (PCR) NOT DETECTED 09/11/20 21:42 Nasal SARS-CoV-2 (PCR) NOT DETECTED 09/11/20 21:42 - Procedures Procedures: Procedures EXCISION OF ESOPHAGUS, ENDO, DIAGN (04/29/17) EXCISION OF STOMACH, ENDO, DIAGN (04/29/17) INSPECTION OF LOWER INTESTINAL TRACT, ENDO (10/13/17) ABX Reporting Has patient been on IV antibiotics over the past 48 hours?: No
[2020-09-12] MEDS ORDERED: HYDROmorphone 1 MG/ML CARPUJECT IVP PRN (19:32)
[2020-09-13 05:10] LABS: BASOPHILS % (AUTO) 0.8 %; EOSINOPHILS # (AUTO) 0.3 10^3/uL (0.0-0.7); EOSINOPHILS % (AUTO) 5.6 %; HCT - HEMATOCRIT 40.8 % (42.0-52.0); HGB - HEMOGLOBIN 13.2 g/dL (14.0-18.0); LYMPHOCYTES # (AUTO) 2.7 10^3/uL (1.5-3.5); LYMPHOCYTES % (AUTO) 51.4 %; MEAN CORPUSCULAR HEMOGLOBIN 28.4 pg (27.0-31.0); MEAN CORPUSCULAR HGB CONC 32.4 g/dL (32.0-36.0); MEAN CORPUSCULAR VOLUME 87.7 fL (80.0-94.0); MEAN PLATELET VOLUME 9.2 fL (7.4-11.4); MONOCYTES # (AUTO) 0.6 10^3/uL (0.0-1.0); MONOCYTES % (AUTO) 10.5 %; NEUTROPHILS # (AUTO) 1.7 10^3/uL (1.5-6.6); NEUTROPHILS % (AUTO) 31.7 %; PLT - PLATELET COUNT 233 10^3/uL (130-450); RED BLOOD COUNT 4.65 10^6/uL (4.70-6.10); RED CELL DISTRIBUTION WIDTH 14.7 % (12.0-15.0); WHITE BLOOD COUNT 5.3 x10^3/uL (4.8-10.8)
[2020-09-13 05:23] LABS: CALCIUM 8.5 mg/dL (8.5-10.3); CREATININE 0.9 mg/dL (0.6-1.2); POTASSIUM 4.2 mmol/L (3.5-5.0)
[2020-09-13] MEDS: NS W/20 MEQ KCL 1,000 ML IV SCH (06:30)
[2020-09-13] MEDS: SODIUM CHLORIDE FLUSH 0.9% 10 ML SYRINGE IVP SCH ×2 (06:30→08:13)
[2020-09-13] MEDS: ONDANSETRON ODT 4 MG TABLET TL SCH (06:30)
--- NOTE | 2020-09-13 07:09 | DISCHARGE SUMMARY ---
Discharge Summary Admit Date: 09/11/20 Discharge Date: 09/13/20 Discharging Provider: Loi Coronado Primary Care Provider: Mark Edmond Code Status: Attempt Resuscitation Condition at Discharge: Stable Discharge Disposition: 01 Home, Self Care - DIAGNOSES Admission Diagnoses: Acute kidney injury Dehydration Hypokalemia Nausea and vomiting Discharge Diagnoses with Status of Each Condition: Acute kidney injury: Resolved Dehydration: Resolved Hypokalemia: Resolved Nausea and vomiting: Improved/Resolved Bradycardia: Asymptomatic - HPI History of Present Illness: Patient is a 39-year-old male who is well-known to the hospitalist service and who presented today with complaint of intractable nausea vomiting, and abdominal pain. This symptoms have been worked up extensively in the past with no significant findings. He uses marijuana and it is believed his nausea and vomiting was related to this. During his presentation he states that he has not used marijuana in about 3 weeks. He was seen in the ED 3 days ago, treated and then discharged with advised to return if his symptoms worsen. He returned today with worsening symptoms. He last vomited around 5 PM today. He last urinated yesterday. His last bowel movement was about 2 to 3 days ago. He denies chest pain, dyspnea, fever or chills. He reports abdominal pain, nausea and vomiting. In the ED work-up included a BMP which showed a creatinine of 1.9. He was given a total of 4 L of fluid in the ED. Over 4 to 5 hours in the ED he was unable to produce any urine. Letter further treatment. Patient was maintained on IV hydration with normal saline +20 mEq of potassium chloride at 125 mils per hour. He also received supplemental potassium chloride IV during his hospital stay. His creatinine improved steadily from 1.9 to0.9 by time of discharge. GFR improved from 48 to 114 His potassium improved from 3.0-4.2. The patient's nausea was treated with Zofran and Phenergan. Zofran ODT was added on the second day to be given before meals. The patient's abdominal pain was also addressed with Dilaudid 1 mg IV every 3 hours. The frequency of the Dilaudid was increased to 1 mg every 2 hours on the second day. Overnight of the second day the patient did not complain of nausea or experience any abdominal pain. Throughout his hospital stay he has been in sinus bradycardia with a heart rate mostly around 40s with an occasional dip into the 30s when he is asleep. The patient has been asymptomatic. He reports this has happened before. As a result no further work-up was done for the bradycardia. Given that his symptoms have resolved he is being discharged home. He was advised to follow-up with his primary care physician as needed. - ALLERGIES Allergies/Adverse Reactions: Allergies Allergy/AdvReac Type Severity Reaction Status Date / Time ketorolac [From Toradol] AdvReac Anxiety Verified 09/11/20 17:34 - MEDICATIONS Home Medications: Ambulatory Orders Medication Instructions Recorded Confirmed Famotidine [Pepcid] 20 mg PO DAILY #20 tab 09/08/20 09/11/20 Prochlorperazine Supp [Compazine 25 mg MT Q8H PRN #10 supp 09/08/20 09/11/20 Supp] Promethazine [Phenergan] 25 mg PO Q6H PRN #25 tab 09/08/20 09/11/20 - PHYSICAL EXAM AT DISCHARGE General Appearance: positive: No acute distress, Alert Eyes Bilateral: positive: PERRL, EOMI ENT: positive: No signs of dehydration Neck: positive: No JVD, Trachea midline Respiratory: positive: Chest non-tender, No respiratory distress, Breath sounds nml. negative: Wheezes, Rales Cardiovascular: positive: Bradycardia (sinus) Abdomen: positive: Non-tender, No organomegaly, Nml bowel sounds, No distention. negative: Guarding, Rebound Back: positive: Nml inspection Skin: positive: Color nml, No rash, Warm, Dry Extremities: positive: Non-tender, Full ROM, Nml appearance, No pedal edema Neurologic/Psychiatric: positive: Oriented x3, Mood/affect nml - LABS Result Diagrams: 09/13/20 04:32 09/13/20 04:32 - FOLLOW UP Follow Up: With PCP: Dr Mark Edmond as needed - TIME SPENT Time Spent in Discharge (Minutes): 25
--- NOTE | 2020-09-13 07:14 | Discharge Plan ---
Discharge Plan Problem Reviewed?: Yes Disposition: 01 Home, Self Care Condition: Stable Diet: Regular Activity Restrictions: Activity as Tolerated Shower Restrictions: No Driving Restrictions: No Health Concerns: You were admitted with intractable nausea and vomiting which has been going on for several days. As a result of the nausea and vomiting you were dehydrated a nd also had acute kidney injury. Furthermore your potassium level was low. Throughout the 2-day stay in the hospital you received IV fluids and potassium replacement. Your renal function improved significantly and the acute kidney injury resolved. Your potassium level is back in the normal range. You will be discharged home with your regular home medications. Throughout your hospital stay you have also been in sinus bradycardia. This is a slow heart rate. Your heart rate has been in the 40s. However you have been asymptomatic. You also mentioned this has been the case in the past. As a result no further work-up or intervention was done. If you become symptomatic specifically start experiencing dizziness with advised you to present back to the ED for reevaluation. You expressed understanding of the above and are in agreement. Plan of Treatment: You were admitted with intractable nausea and vomiting which has been going on for several days. As a result of the nausea and vomiting you were dehydrated and also had acute kidney injury. Furthermore your potassium level was low. Throughout the 2-day stay in the hospital you received IV fluids and potassium replacement. Your renal function improved significantly and the acute kidney injury resolved. Your potassium level is back in the normal range. You will be discharged home with your regular home medications. Throughout your hospital stay you have also been in sinus bradycardia. This is a slow heart rate. Your heart rate has been in the 40s. However you have been asymptomatic. You also mentioned this has been the case in the past. As a result no further work-up or intervention was done. If you become symptomatic specifically start experiencing dizziness with advised you to present back to the ED for reevaluation. You expressed understanding of the above and are in agreement. Care Goals: You were admitted with intractable nausea and vomiting which has been going on for several days. As a result of the nausea and vomiting you were dehydrated and also had acute kidney injury. Furthermore your potassium level was low. Throughout the 2-day stay in the hospital you received IV fluids and potassium replacement. Your renal function improved significantly and the acute kidney injury resolved. Your potassium level is back in the normal range. You will be discharged home with your regular home medications. Throughout your hospital stay you have also been in sinus bradycardia. This is a slow heart rate. Your heart rate has been in the 40s. However you have been asymptomatic. You also mentioned this has been the case in the past. As a result no further work-up or intervention was done. If you become symptomatic specifically start experiencing dizziness with advised you to present back to the ED for reevaluation. You expressed understanding of the above and are in agreement. Assessment: You were admitted with intractable nausea and vomiting which has been going on for several days. As a result of the nausea and vomiting you were dehydrated and also had acute kidney injury. Furthermore your potassium level was low. Throughout the 2-day stay in the hospital you received IV fluids and potassium replacement. Your renal function improved significantly and the acute kidney injury resolved. Your potassium level is back in the normal range. You will be discharged home with your regular home medications. Throughout your hospital stay you have also been in sinus bradycardia. This is a slow heart rate. Your heart rate has been in the 40s. However you have been asymptomatic. You also mentioned this has been the case in the past. As a result no further work-up or intervention was done. If you become symptomatic specifically start experiencing dizziness with advised you to present back to the ED for reevaluation. You expressed understanding of the above and are in agreement. Additional Instructions or Follow Up instructions: Follow-up with your primary care physician Dr. Kev Edmond as needed. No Smoking: If you smoke, Please STOP! Call for help.
[2020-09-13 08:06] VITALS: BP 142/90
[2020-09-13] MEDS: NICOTINE 7 MG PATCH TOP SCH (08:13)
== END 2020-09-13 09:00 | disposition home or self-care (01) ==
LOC: EDUNIT# → ED 17:23 → MS3 21:24
PROVIDERS: ADMIT Internal Medicine; ATTEND Internal Medicine
DX: R11.2 Nausea with vomiting, unspecified (principal); N17.9 Acute kidney failure, unspecified; E86.0 Dehydration; E87.6 Hypokalemia; R00.1 Bradycardia, unspecified; F17.210 Nicotine dependence, cigarettes, uncomplicated; Z20.822 Contact with and (suspected) exposure to COVID-19; R10.9 Unspecified abdominal pain
CPT/HCPCS: 0202U; 36415; 51798; 80048; 80053; 81001; 82550; 83605; 83690; 83735; 85025; 85027; 96365; 96366; 96367; 96372; 96375; 96376; 99284; 99285; A9270; G0378; J1170; J7040; Q0162; 81003; 87086

== ENCOUNTER 2020-10-20 | Outpatient (CLI) | payer MEDICAID | END 2020-10-20 22:34 | disposition critical access hospital (66) | CPT/HCPCS: A0425; A0427 ==

== ENCOUNTER 2020-10-20 23:01 | Emergency (ER) | payer MEDICAID ==
--- NOTE | 2020-10-20 23:57 | ED Physician Documentation ---
PD HPI ABD PAIN - Stated complaint Stated Complaint: ABD PX - Chief complaint Chief Complaint: Abd Pain - History obtained from History obtained from: Patient, EMS - History of Present Illness Timing - onset: How many days ago (8) Timing - duration: Days Timing - details: Still present, Constant, Waxing and waning Pain level now: 8 Quality: Pain, Other (burning) Improved by: Other (nothing) Worsened by: Other (palpation) Associated symptoms: Nausea, Vomiting. No: Fever, Melena, Hematochezia - Additional information Additional information: Patient was brought in by ambulance for abdominal pain, nausea, and vomiting. He has had the symptoms for the past eight days. Patient has a long history of frequent visits to this emergency department for the symptoms. His current visit is his 24th [facility] ED visit in the past 12 months. Review of Systems Constitutional: reports: Reviewed and negative Cardiac: reports: Reviewed and negative Respiratory: reports: Reviewed and negative GI: reports: Abdominal Pain, Nausea, Vomiting. denies: Constipation, Diarrhea, Hematemesis, Bloody / black stool : denies: Dysuria Musculoskeletal: reports: Reviewed and negative PD PAST MEDICAL HISTORY - Past Medical History Cardiovascular: Hypertension Respiratory: None Neuro: None Endocrine/Autoimmune: None GI: GERD, Ulcers, Pancreatitis : None HEENT: None Psych: Depression, Anxiety, Panic attacks, Other Musculoskeletal: None Derm: None - Past Surgical History Past Surgical History: No Ortho: Other - Present Medications Home Medications: Ambulatory Orders Medication Instructions Recorded Confirmed Famotidine [Acid-Pep] 20 mg PO DAILY 10/21/20 10/21/20 Ondansetron Odt [Zofran Odt] 4 mg TL Q6H PRN 10/21/20 10/21/20 Prochlorperazine Supp [Compazine 25 mg NE Q6HR PRN 10/21/20 10/21/20 Supp] Promethazine [Phenergan] 25 mg PO Q6H PRN 10/21/20 10/21/20 - Allergies Allergies/Adverse Reactions: Allergies Allergy/AdvReac Type Severity Reaction Status Date / Time ketorolac [From Toradol] AdvReac Anxiety Verified 09/11/20 17:34 - Social History Does the pt smoke?: Yes Smoking Status: Current every day smoker Does the pt drink ETOH?: Yes Does the pt have substance abuse?: Yes - Immunizations Immunizations are current?: Yes Immunizations: Other immun not current - POLST Patient has POLST: No POLST Status: Full Code PD ED PE NORMAL - Vitals Vital signs reviewed: Yes - General General: Alert and oriented X 3, No acute distress, Well developed/nourished - HEENT HEENT: Moist mucous membranes - Neck Neck: Supple, no meningeal sign - Cardiac Cardiac: RRR, No murmur - Respiratory Respiratory: No respiratory distress, Clear bilaterally - Abdomen Abdomen: Soft, Non distended, Other (periumbilical and epigastric tenderness with strong distractable component) - Derm Derm: Normal color, Warm and dry Results - Vitals Vitals: Vital Signs - 24 hr 10/20/20 10/21/20 10/21/20 23:02 01:31 04:23 Temperature 37 C 36.7 C 36.8 C Heart Rate 102 H 50 L 60 Respiratory 14 20 10 L Rate Blood Pressure 148/110 H 116/85 H 208/137 H O2 Saturation 95 97 100 Oxygen O2 Source Room air - Labs Labs: Laboratory Tests 10/21/20 10/21/20 10/21/20 00:13 00:13 02:45 WBC 5.1 RBC 6.53 H Hgb 18.3 H Hct 54.8 H MCV 83.9 MCH 28.0 MCHC 33.4 RDW 14.6 Plt Count 263 MPV 9.3 Neut # (Auto) 3.2 Lymph # (Auto) 1.2 L [place] # (Auto) 0.6 Eos # (Auto) 0.1 Baso # (Auto) 0.1 Absolute Nucleated RBC 0.00 Nucleated RBC % 0.0 Sodium 134 L 138 Potassium 3.2 L 3.6 Chloride 94 L 101 Carbon Dioxide 23 27 Anion Gap 17.0 H 10.0 BUN 35 H 30 H Creatinine 1.6 H 1.4 H Estimated GFR (MDRD) 59 L 68 L Glucose 129 H 110 H Calcium 9.8 8.7 Total Bilirubin 1.5 H AST 21 ALT 27 Alkaline Phosphatase 75 Total Protein 8.8 H Albumin 5.3 Globulin 3.5 Albumin/Globulin Ratio 1.5 Lipase 41 PD MEDICAL DECISION MAKING - ED course Complexity details: reviewed old records, reviewed results, re-evaluated patient, considered differential, d/w patient ED course: patient reported significant improvement after IV fluids, droperidol, and ofirmev. also given IV pepcid. I reviewed the test results with him and he was comfortable with d/c home. I recommended he pursue follow up with his primary care provider for recheck of his labs; specifically, elevated bun/creatinine although recheck tonight after 3 liters IV fluid (NS, LR) demonstrated improvement. as preparations were being made for discharge, he again c/o pain and nausea; given repeat dose of droperidol (half of initial dose) and IV benadryl and subsequently discharged Departure - Departure Disposition: 01 Home, Self Care Clinical Impression: Abdominal pain Qualifiers: Abdominal location: upper abdomen, unspecified Qualified Code(s): R10.10 - Upper abdominal pain, unspecified Vomiting Qualifiers: Vomiting type: unspecified Vomiting Intractability: non-intractable Nausea presence: with nausea Qualified Code(s): R11.2 - Nausea with vomiting, unspecified Condition: Good Instructions: ED Abdominal Pain Unkn Cause, ED Nausea Vomiting Comments: Follow up with your primary care provider. Your kidney tests were abnormal but improving after the IV fluids; you might need retesting of your kidney function tests in the outpatient setting at the discretion of your primary care provider. Discharge Date/Time: 10/21/20 05:07
[2020-10-21] MEDS ORDERED: DROPERIDOL 5 MG/2 ML VIAL IVP STA ×2 (00:03→04:32)
[2020-10-21] MEDS ORDERED: SODIUM CHLORIDE 0.9% 1,000 ML IV STA ×3 (00:03→01:13)
[2020-10-21 00:19] LABS: BASOPHILS # (AUTO) 0.1 10^3/uL (0.0-0.1); EOSINOPHILS # (AUTO) 0.1 10^3/uL (0.0-0.7); EOSINOPHILS % (AUTO) 1.2 %; HCT - HEMATOCRIT 54.8 % (42.0-52.0); HGB - HEMOGLOBIN 18.3 g/dL (14.0-18.0); LYMPHOCYTES # (AUTO) 1.2 10^3/uL (1.5-3.5); LYMPHOCYTES % (AUTO) 23.7 %; MEAN CORPUSCULAR HGB CONC 33.4 g/dL (32.0-36.0); MEAN CORPUSCULAR VOLUME 83.9 fL (80.0-94.0); MEAN PLATELET VOLUME 9.3 fL (7.4-11.4); MONOCYTES # (AUTO) 0.6 10^3/uL (0.0-1.0); MONOCYTES % (AUTO) 11.2 %; NEUTROPHILS # (AUTO) 3.2 10^3/uL (1.5-6.6); NEUTROPHILS % (AUTO) 62.7 %; PLT - PLATELET COUNT 263 10^3/uL (130-450); RED BLOOD COUNT 6.53 10^6/uL (4.70-6.10); RED CELL DISTRIBUTION WIDTH 14.6 % (12.0-15.0); WHITE BLOOD COUNT 5.1 x10^3/uL (4.8-10.8)
[2020-10-21] MEDS ORDERED: ACETAMINOPHEN 1,000 MG/100 ML 100 ML IV STA (00:23)
[2020-10-21] MEDS ORDERED: FAMOTIDINE 20 MG/2 ML VIAL IVP STA (00:24)
[2020-10-21 00:40] LABS: ALBUMIN 5.3 g/dL (3.2-5.5); ALBUMIN/GLOBULIN RATIO 1.5 (1.0-2.2); BILIRUBIN,TOTAL 1.5 mg/dL (0.2-1.0); CALCIUM 9.8 mg/dL (8.5-10.3); CREATININE 1.6 mg/dL (0.6-1.2); POTASSIUM 3.2 mmol/L (3.5-5.0); TOTAL PROTEIN 8.8 g/dL (6.7-8.2)
[2020-10-21] MEDS ORDERED: LACTATED RINGERS 1,000 ML IV ONE (01:20)
[2020-10-21 02:57] LABS: CALCIUM 8.7 mg/dL (8.5-10.3); CREATININE 1.4 mg/dL (0.6-1.2); POTASSIUM 3.6 mmol/L (3.5-5.0)
[2020-10-21 04:25] VITALS: BP 208/137
[2020-10-21] MEDS ORDERED: diphenhydrAMINE INJ 50 MG/ML VIAL IVP STA (04:33)
== END 2020-10-21 05:07 | disposition home or self-care (01) ==
LOC: EDUNIT# → ED 23:01
DX: R10.33 Periumbilical pain (principal); R10.13 Epigastric pain; R11.2 Nausea with vomiting, unspecified; K21.9 Gastro-esophageal reflux disease without esophagitis; Z87.11 Personal history of peptic ulcer disease; I10 Essential (primary) hypertension; F17.200 Nicotine dependence, unspecified, uncomplicated
CPT/HCPCS: 36415; 80048; 80053; 83690; 85025; 96361; 96374; 96375; 96376; 99284

== ENCOUNTER 2020-10-21 | Outpatient (CLI) | payer MEDICAID | END 2020-10-21 13:34 | disposition critical access hospital (66) | DX: R10.12 Left upper quadrant pain (principal) | CPT/HCPCS: A0425; A0429 ==

== ENCOUNTER 2020-10-21 14:04 | Emergency (ER) | payer MEDICAID ==
[2020-10-21] MEDS ORDERED: DROPERIDOL 5 MG/2 ML VIAL IVP STA (14:53)
[2020-10-21] MEDS ORDERED: SODIUM CHLORIDE 0.9% 1,000 ML IV STA (14:54)
[2020-10-21] MEDS ORDERED: diphenhydrAMINE INJ 50 MG/ML VIAL IVP STA (14:55)
--- NOTE | 2020-10-21 15:00 | ED Physician Documentation ---
History of Present Illness - Stated complaint Stated Complaint: abd pain - Chief complaint Chief Complaint: Abd Pain - History obtained from History obtained from: Patient - Additonal information Additional information: Patient comes emergency department chief complaint of upper abdominal pain, nausea And vomiting for the last several days. The patient was just seen in our emergency department this morning for the same complaints. He states that he was still feeling nauseated when he was discharged and continued to vomit throughout the morning. Patient states that he has rectal Compazine and oral dissolving Zofran and also another pill for nausea currently he states that none of these have been able to get his nausea under control. Patient denies any new or unusual symptoms at this time. He denies fevers or chills. No diarrhea. No other complaints at this time. Review of Systems Ten Systems: 10 systems reviewed and negative Constitutional: reports: Reviewed and negative Eyes: reports: Reviewed and negative Ears: reports: Reviewed and negative Nose: reports: Reviewed and negative Throat: reports: Reviewed and negative Cardiac: reports: Reviewed and negative Respiratory: reports: Reviewed and negative GI: reports: Abdominal Pain, Nausea, Vomiting : reports: Reviewed and negative Skin: reports: Reviewed and negative Musculoskeletal: reports: Reviewed and negative Neurologic: reports: Reviewed and negative Psychiatric: reports: Reviewed and negative Endocrine: reports: Reviewed and negative Immunocompromised: reports: Reviewed and negative PD PAST MEDICAL HISTORY - Past Medical History Past Medical History: Yes Cardiovascular: Hypertension Respiratory: None Neuro: None Endocrine/Autoimmune: None GI: GERD, Ulcers, Pancreatitis : None HEENT: None Psych: Depression, Anxiety, Panic attacks, Other Musculoskeletal: None Derm: None - Past Surgical History Past Surgical History: No Ortho: Other - Present Medications Home Medications: Ambulatory Orders Medication Instructions Recorded Confirmed Famotidine [Acid-Pep] 20 mg PO DAILY 10/21/20 10/21/20 Ondansetron Odt [Zofran Odt] 4 mg TL Q6H PRN 10/21/20 10/21/20 Prochlorperazine Supp [Compazine 25 mg [place] Q6HR PRN 10/21/20 10/21/20 Supp] Promethazine [Phenergan] 25 mg PO Q6H PRN 10/21/20 10/21/20 - Allergies Allergies/Adverse Reactions: Allergies Allergy/AdvReac Type Severity Reaction Status Date / Time ketorolac [From Toradol] AdvReac Anxiety Verified 09/11/20 17:34 - Social History Does the pt smoke?: Yes Smoking Status: Current every day smoker Does the pt drink ETOH?: Yes Does the pt have substance abuse?: Yes Substance Use and Type: Marijuana - Immunizations Immunizations are current?: Yes Immunizations: Other immun not current - POLST Patient has POLST: No POLST Status: Full Code PD ED PE NORMAL - Vitals Vital signs reviewed: Yes - General General: Alert and oriented X 3, No acute distress - HEENT HEENT: Atraumatic, PERRL, EOMI, Moist mucous membranes - Neck Neck: Supple, no meningeal sign - Cardiac Cardiac: RRR, No murmur, Strong equal pulses - Respiratory Respiratory: No respiratory distress, Clear bilaterally - Abdomen Abdomen: Soft, Non distended, Other (Moderate tenderness, left upper quadrant, no rebound or guarding.) - Derm Derm: Normal color, Warm and dry, No rash - Extremities Extremities: No deformity, No edema, No calf tenderness / cord - Neuro Neuro: Alert and oriented X 3 - Psych Psych: Normal mood, Normal affect Results - Vitals Vitals: Vital Signs - 24 hr 10/21/20 10/21/20 10/21/20 14:11 14:23 15:45 Temperature 37.4 C Heart Rate 73 68 76 Respiratory 20 18 18 Rate Blood Pressure 148/107 H 161/103 H 224/137 H O2 Saturation 97 96 98 10/21/20 16:56 Temperature 36.9 C Heart Rate 86 Respiratory 18 Rate Blood Pressure 210/123 H O2 Saturation 97 Oxygen O2 Source Room air PD MEDICAL DECISION MAKING - ED course Complexity details: re-evaluated patient, considered differential, d/w patient ED course: The patient was treated symptomatically with IV fluids, droperidol, and Benadryl. The patient had no further vomiting in the emergency department. He did request medication for pain, but I have declined to give him opioids. The patient has declined Toradol in the past, and I have once again advised this patient to speak with his primary care physician about getting on a chronic pain plan, as this does seem to be a recurring problem for the patient. The patient is stable for discharge home. He has medications for his nausea which he may take. He is advised regarding clear liquid diet. He has been given the usual indications for return. Departure - Departure Disposition: 01 Home, Self Care Clinical Impression: Cyclical vomiting Condition: Stable Instructions: ED Nausea Vomiting Comments: You have been treated with multiple medications in the emergency department with no vomiting since. You have been hydrated up again, as well. Your labs from Today look very good. It is very important that you follow-up with your primary doctor to discuss a plan for your chronic nausea and pain. Please take your home medications, as needed.
[2020-10-21 16:57] VITALS: BP 210/123
== END 2020-10-21 17:11 | disposition home or self-care (01) ==
LOC: EDUNIT# → ED 14:04
DX: R11.15 Cyclical vomiting syndrome unrelated to migraine (principal); R10.33 Periumbilical pain; R10.13 Epigastric pain; K21.9 Gastro-esophageal reflux disease without esophagitis; Z87.11 Personal history of peptic ulcer disease; I10 Essential (primary) hypertension; F17.200 Nicotine dependence, unspecified, uncomplicated
CPT/HCPCS: 36415; 80048; 80053; 83690; 85025; 96361; 96374; 96375; 96376; 99283; 99284; J1200; J7120

== ENCOUNTER 2020-10-22 | Outpatient (CLI) | payer MEDICAID | END 2020-10-22 09:30 | disposition critical access hospital (66) | DX: R10.9 Unspecified abdominal pain (principal) | CPT/HCPCS: A0425; A0429; A0999 ==

== ENCOUNTER 2020-10-26 11:09 | Outpatient (CLI) | payer MEDICAID | END 2020-10-26 11:10 | disposition critical access hospital (66) | LOC: EMS 11:09 | DX: R10.10 Upper abdominal pain, unspecified (principal); R11.2 Nausea with vomiting, unspecified | CPT/HCPCS: A0425; A0427 ==

== ENCOUNTER 2020-10-26 11:39 | Emergency (ER) | payer MEDICAID ==
[2020-10-26] MEDS ORDERED: diphenhydrAMINE INJ 50 MG/ML VIAL IVP STA (11:47)
[2020-10-26] MEDS ORDERED: SODIUM CHLORIDE 0.9% 1,000 ML IV STA (11:47)
[2020-10-26] MEDS ORDERED: DROPERIDOL 5 MG/2 ML VIAL IVP STA (11:47)
--- NOTE | 2020-10-26 11:56 | ED Physician Documentation ---
PD HPI NVD - Stated complaint Stated Complaint: ABD PX - Chief complaint Chief Complaint: Abd Pain - History obtained from History obtained from: Patient - Additonal information Additional information: She is brought to the emergency department by EMS for chief complaint of upper abdominal pain, nausea, and vomiting that started yesterday evening. Patient has been seen multiple times in the last week in our emergency department for the same symptoms and has a longstanding history of the same, as well. He was finally admitted to the hospital on October 22, after presenting to the emergency department 3 days in a row. He was just discharged after day after being treated in-house with IV fluids, IV antiemetics, and oral oxycodone. CT scan was performed while he was admitted and showed a possible colitis, so he was started on Cipro and Flagyl. The patient states he was able to tolerate p.o.'s in the hospital but when he went home and tried to eat he began experiencing abdominal pain, followed by nausea and vomiting. He states he does not really know why he was able to eat okay in the hospital but not at home. He feels that he is anxious at home but he is not sure why. Medics report that they gave the patient 6 mg of morphine in route, as well as Zofran IV. The patient states he still having 6 out of 10 upper abdominal pain and has some nausea. The patient had a drug screen on admission that was positive for both cannabinoids and cocaine. He has stopped drinking regularly approximately 5 years ago, but does have some beer every couple of weeks here and there. Patient states his symptoms feel fairly similar to what he has had before with his chronic abdominal pain and cyclic vomiting. No new symptoms. Review of Systems Ten Systems: 10 systems reviewed and negative Constitutional: reports: Reviewed and negative Eyes: reports: Reviewed and negative Ears: reports: Reviewed and negative Nose: reports: Reviewed and negative Throat: reports: Reviewed and negative Cardiac: reports: Reviewed and negative Respiratory: reports: Reviewed and negative GI: reports: Abdominal Pain, Nausea, Vomiting : reports: Reviewed and negative Skin: reports: Reviewed and negative Musculoskeletal: reports: Reviewed and negative Neurologic: reports: Reviewed and negative Psychiatric: reports: Reviewed and negative Endocrine: reports: Reviewed and negative Immunocompromised: reports: Reviewed and negative PD PAST MEDICAL HISTORY - Past Medical History Cardiovascular: Hypertension Respiratory: None Neuro: None Endocrine/Autoimmune: None GI: GERD, Ulcers, Pancreatitis : None HEENT: None Psych: Depression, Anxiety, Panic attacks, Other Musculoskeletal: None Derm: None - Past Surgical History Past Surgical History: No General: Colonoscopy, EGD Ortho: Other - Present Medications Home Medications: Ambulatory Orders Medication Instructions Recorded Confirmed Famotidine [Acid-Pep] 20 mg PO DAILY PRN 10/21/20 10/26/20 Ondansetron Odt [Zofran Odt] 4 mg TL Q6H PRN 10/21/20 10/26/20 Promethazine [Phenergan] 25 mg PO Q6H PRN 10/21/20 10/26/20 metroNIDAZOLE [Flagyl] 500 mg PO BID 7 Days #14 tablet 10/25/20 10/26/20 - Allergies Allergies/Adverse Reactions: Allergies Allergy/AdvReac Type Severity Reaction Status Date / Time ketorolac [From Toradol] AdvReac Anxiety Verified 10/26/20 11:56 - Social History Does the pt smoke?: Yes Smoking Status: Current every day smoker Does the pt drink ETOH?: Yes Does the pt have substance abuse?: Yes - Immunizations Immunizations are current?: Yes Immunizations: Other immun not current - POLST Patient has POLST: No POLST Status: Full Code PD ED PE NORMAL - Vitals Vital signs reviewed: Yes - General General: Alert and oriented X 3, Other (Patient is tearful and sweating, looks uncomfortable and emotionally distraught.) - HEENT HEENT: Atraumatic, PERRL - Neck Neck: Supple, no meningeal sign - Cardiac Cardiac: RRR, No murmur, Strong equal pulses - Respiratory Respiratory: No respiratory distress, Clear bilaterally - Abdomen Abdomen: Soft, Non distended, Other (Diffuse mild tenderness, moderate in epigastrium, no rebound or guarding.) - Derm Derm: Normal color, No rash, Other (Facial diaphoresis, otherwise dry) - Extremities Extremities: No deformity, No edema, No calf tenderness / cord - Neuro Neuro: Alert and oriented X 3, candy maker helper 2-12 intact, Normal speech, Other (otherwise grossly normal) - Psych Psych: Normal mood, Normal affect Results - Vitals Vitals: Oxygen O2 Source Room air PD MEDICAL DECISION MAKING - ED course Complexity details: reviewed results, re-evaluated patient, considered differential, d/w patient ED course: Patient was treated symptomatically with IV fluids, droperidol, and Benadryl. I reviewed his records from admission, as well as his last emergency department visit since I saw him last. The pt had been eating well in the hospital, but as soon as he got home, began having nausea, pain, and vomiting. He had been positive for cocaine and MJ on drug screen on admission. The pt had no further vomiting in the ED, and stated his nausea was better. He had already received IV morphine en-route, and stated he wanted more pain medication here. I have reminded the pt that due to the exceeding frequency of his visits for this chronic problem, as well as his continuation of substance abuse, he will not be treated with narcotics/opiates in the ED for exacerbations. I have d/w the pt once again that he needs to follow up with his doctor to develop a pain plan for at home. We have discussed the usual indications for return. Departure - Departure Disposition: 01 Home, Self Care Clinical Impression: Vomiting Qualifiers: Vomiting type: bilious vomiting Nausea presence: with nausea Qualified Code(s): R11.14 - Bilious vomiting Abdominal pain Qualifiers: Abdominal location: generalized Qualified Code(s): R10.84 - Generalized abdominal pain Condition: Stable Instructions: ED Nausea Vomiting Comments: Please continue your home medications. Javi, as you know, we cannot treat your chronic pain with narcotics in the emergency department. Medics have already given you IV morphine in route. You need to talk to your primary doctor about a pain plan to manage the ongoing and recurrent abdominal pain that you have. As mentioned many times before, it is very important that you leave off the use of drugs, even marijuana. As far as eating, it is best if you give your stomach a break for the next 8 to 12 hours let things calm down. Try taking only small sips of clear liquids and then began trying small amounts of a bland diet again. Please call as soon as you get home to make a follow-up appointment with your primary doctor. Discharge Date/Time: 10/26/20 13:26
[2020-10-26 13:16] VITALS: BP 228/127
== END 2020-10-26 13:26 | disposition home or self-care (01) ==
LOC: EDUNIT# → ED 11:39
DX: R10.84 Generalized abdominal pain (principal); R11.14 Bilious vomiting; I10 Essential (primary) hypertension; F17.200 Nicotine dependence, unspecified, uncomplicated
CPT/HCPCS: 96361; 96374; 96375; 99283; 99284; J1200

== ENCOUNTER 2020-12-12 19:53 | Outpatient (CLI) | payer MEDICAID | END 2020-12-12 19:54 | disposition critical access hospital (66) | LOC: EMS 19:53 | DX: R10.9 Unspecified abdominal pain (principal); R11.2 Nausea with vomiting, unspecified | CPT/HCPCS: A0425; A0427 ==

== ENCOUNTER 2020-12-12 20:24 | Emergency (ER) | payer MEDICAID ==
[2020-12-12] MEDS ORDERED: HALOPERIDOL 5 MG/ML VIAL IVP ONE (20:28)
--- NOTE | 2020-12-12 20:30 | ED Physician Documentation ---
PD HPI ABD PAIN - Stated complaint Stated Complaint: ABD PAIN - History obtained from History obtained from: Patient, EMS - Additional information Additional information: 40-year-old gentleman with history of recurrent abdominal pain, likely cannabinoid hyperemesis. He gets monthly issues where he has epigastric and left upper quadrant pain. He has had thorough work-up for this without pertinent positive findings although he has had pancreatitis in the past but that was related to alcohol use. He has not used alcohol in years. He has burning sharp left upper quadrant pain associate with vomiting for the last 4 days. Last use of marijuana was about that time. On the way here he had some fentanyl and Zofran with improvement but not resolution of his symptoms. He has had this in the past which is led to acute kidney injury at times. Peak creatinine we have ever seen on him was 3.9 in March 2020. Review of Systems Ten Systems: 10 systems reviewed and negative Constitutional: denies: Fever, Chills Respiratory: denies: Dyspnea, Cough GI: reports: Abdominal Pain, Nausea, Vomiting. denies: Diarrhea PD PAST MEDICAL HISTORY - Past Medical History Cardiovascular: Hypertension Respiratory: None Neuro: None Endocrine/Autoimmune: None GI: GERD, Ulcers, Pancreatitis : None HEENT: None Psych: Depression, Anxiety, Panic attacks, Other Musculoskeletal: None Derm: None - Past Surgical History Past Surgical History: No General: Colonoscopy, EGD Ortho: Other - Present Medications Home Medications: Ambulatory Orders Medication Instructions Recorded Confirmed Famotidine [Acid-Pep] 20 mg PO DAILY PRN 10/21/20 12/12/20 Metoclopramide [Reglan] 10 mg PO Q6H PRN #10 tablet 12/12/20 - Allergies Allergies/Adverse Reactions: Allergies Allergy/AdvReac Type Severity Reaction Status Date / Time ketorolac [From Toradol] AdvReac Anxiety Verified 12/12/20 20:27 - Social History Does the pt smoke?: Yes Smoking Status: Current every day smoker Does the pt drink ETOH?: Yes Does the pt have substance abuse?: Yes - Immunizations Immunizations are current?: Yes Immunizations: Other immun not current - POLST Patient has POLST: No POLST Status: Full Code PD ED PE NORMAL - Vitals Vital signs reviewed: Yes - General General: Alert and oriented X 3, No acute distress - HEENT HEENT: PERRL, EOMI - Neck Neck: Supple, no meningeal sign, No bony TTP - Cardiac Cardiac: RRR, No murmur - Respiratory Respiratory: No respiratory distress, Clear bilaterally - Abdomen Abdomen: Normal bowel sounds, Soft, Non tender - Back Back: No CVA TTP, No spinal TTP - Derm Derm: Normal color, Warm and dry - Extremities Extremities: No edema, No calf tenderness / cord - Neuro Neuro: Alert and oriented X 3, Normal speech Results - Vitals Vitals: Vital Signs - 24 hr 12/12/20 12/12/20 12/12/20 20:28 20:30 20:46 Temperature 36.7 C 36.7 C Heart Rate 68 68 68 Respiratory 16 16 16 Rate Blood Pressure 152/103 H 152/102 H 145/99 H O2 Saturation 98 98 99 12/12/20 21:18 Temperature Heart Rate 60 Respiratory 16 Rate Blood Pressure 120/72 O2 Saturation 97 Oxygen O2 Source Room air - Labs Labs: Laboratory Tests 12/12/20 20:38 Sodium 138 Potassium 3.4 L Chloride 104 Carbon Dioxide 25 Anion Gap 9.0 BUN 17 Creatinine 1.1 Estimated GFR (MDRD) 90 Glucose 109 H Calcium 9.2 Total Bilirubin 0.6 AST 22 ALT 26 Alkaline Phosphatase 73 Total Protein 7.5 Albumin 4.6 Globulin 2.9 Albumin/Globulin Ratio 1.6 Lipase 81 H PD MEDICAL DECISION MAKING - ED course ED course: 40-year-old gentleman presented to have exacerbation of chronic abdominal pain. He was already feeling somewhat better with some meds given in route and after the administration of IV Haldol here he remained asymptomatic and passed an oral challenge. Departure - Departure Disposition: 01 Home, Self Care Clinical Impression: Abdominal pain Qualifiers: Abdominal location: epigastric Qualified Code(s): R10.13 - Epigastric pain Vomiting Qualifiers: Vomiting type: unspecified Vomiting Intractability: non-intractable Nausea presence: with nausea Qualified Code(s): R11.2 - Nausea with vomiting, unspecified Instructions: ED Nausea Vomiting Prescriptions: Metoclopramide [Reglan] 10 mg PO Q6H PRN #10 tablet PRN Reason: nausea or headache Comments: Continue to abstain from marijuana. Return if you worsen.
[2020-12-12 20:57] LABS: ALBUMIN 4.6 g/dL (3.2-5.5); ALBUMIN/GLOBULIN RATIO 1.6 (1.0-2.2); BILIRUBIN,TOTAL 0.6 mg/dL (0.2-1.0); CALCIUM 9.2 mg/dL (8.5-10.3); CREATININE 1.1 mg/dL (0.6-1.2); POTASSIUM 3.4 mmol/L (3.5-5.0); TOTAL PROTEIN 7.5 g/dL (6.7-8.2)
[2020-12-12 22:53] VITALS: BP 118/71
== END 2020-12-12 22:52 | disposition home or self-care (01) ==
LOC: EDUNIT# → ED 20:24
DX: R10.13 Epigastric pain (principal); R10.12 Left upper quadrant pain; R11.2 Nausea with vomiting, unspecified; Z87.19 Personal history of other diseases of the digestive system; I10 Essential (primary) hypertension; F17.200 Nicotine dependence, unspecified, uncomplicated
CPT/HCPCS: 36415; 80053; 83690; 96374; 99284

== ENCOUNTER 2020-12-13 15:44 | Outpatient (CLI) | payer MEDICAID | END 2020-12-13 15:45 | disposition critical access hospital (66) | LOC: EMS 15:44 | DX: R10.9 Unspecified abdominal pain (principal); R11.2 Nausea with vomiting, unspecified | CPT/HCPCS: A0425; A0427; A0999 ==

== ENCOUNTER 2020-12-13 16:18 | Emergency (ER) | payer MEDICAID ==
--- NOTE | 2020-12-13 16:21 | ED Physician Documentation ---
History of Present Illness - Stated complaint Stated Complaint: ABD PX - History obtained from History obtained from: Patient, EMS - History of Present Illness Timing: Chronic Pain level max: 8 Pain level now: 8 - Additonal information Additional information: 40-year-old male, well-known to the for recurrent abdominal pain and vomiting. This is thought likely to be secondary to cannabinoid induced hyperemesis. Usually resolves with haloperidol or droperidol. Seen here yesterday for same. [place] better after haloperidol, symptoms returned today. States last used marijuana 2 days ago. Patient averages about 20 ER visits per year for the same condition. No fevers. No chills. Received Zofran and fentanyl with EMS. Review of Systems Ten Systems: 10 systems reviewed and negative Constitutional: denies: Fever, Chills Respiratory: denies: Cough, Hemoptysis, Wheezing GI: reports: Abdominal Pain (Crampy, diffuse), Vomiting. denies: Diarrhea, Hematemesis, Bloody / black stool : denies: Dysuria, Frequency, Hesitancy Skin: denies: Rash Musculoskeletal: denies: Neck pain, Back pain Neurologic: denies: Headache PD PAST MEDICAL HISTORY - Past Medical History Cardiovascular: Hypertension Respiratory: None Neuro: None Endocrine/Autoimmune: None GI: GERD, Ulcers, Pancreatitis : None HEENT: None Psych: Depression, Anxiety, Panic attacks, Other Musculoskeletal: None Derm: None - Past Surgical History Past Surgical History: No General: Colonoscopy, EGD Ortho: Other - Present Medications Home Medications: Ambulatory Orders Medication Instructions Recorded Confirmed Ondansetron Odt [Zofran Odt] 1 tab PO DAILY 12/14/20 12/14/20 Promethazine [Phenergan] 1 tab PO DAILY 12/14/20 12/14/20 - Allergies Allergies/Adverse Reactions: Allergies Allergy/AdvReac Type Severity Reaction Status Date / Time haloperidol [From Haldol] Allergy Severe Anxiety Verified 12/14/20 13:08 ketorolac [From Toradol] AdvReac Anxiety Verified 12/13/20 16:26 - Social History Does the pt smoke?: Yes Smoking Status: Current every day smoker Does the pt drink ETOH?: Yes Does the pt have substance abuse?: Yes - Immunizations Immunizations are current?: Yes Immunizations: Other immun not current - POLST Patient has POLST: No POLST Status: Full Code PD ED PE NORMAL - Vitals Vital signs reviewed: Yes - General General: Alert and oriented X 3, No acute distress - HEENT HEENT: Moist mucous membranes - Neck Neck: Supple, no meningeal sign - Cardiac Cardiac: RRR, Strong equal pulses - Respiratory Respiratory: No respiratory distress, Clear bilaterally - Abdomen Abdomen: Soft, Non tender, Non distended - Back Back: No spinal TTP - Derm Derm: Warm and dry - Extremities Extremities: No edema - Neuro Neuro: Alert and oriented X 3 - Psych Psych: Normal mood, Normal affect Results - Vitals Vitals: Oxygen O2 Source Room air - Labs Labs: Laboratory Tests 12/13/20 12/13/20 16:43 16:43 WBC 8.3 RBC 5.70 Hgb 16.2 Hct 48.0 MCV 84.2 MCH 28.4 MCHC 33.8 RDW 14.6 Plt Count 329 MPV 9.2 Neut # (Auto) 7.3 H Lymph # (Auto) 0.5 L Reynolds # (Auto) 0.4 Eos # (Auto) 0.0 Baso # (Auto) 0.0 Absolute Nucleated RBC 0.00 Nucleated RBC % 0.0 Sodium 138 Potassium 3.8 Chloride 99 L Carbon Dioxide 27 Anion Gap 12.0 BUN 23 H Creatinine 1.0 Estimated GFR (MDRD) 100 Glucose 131 H Calcium 9.9 Total Bilirubin 0.8 AST 25 ALT 31 Alkaline Phosphatase 76 Total Protein 8.6 H Albumin 5.1 Globulin 3.5 Albumin/Globulin Ratio 1.5 Lipase 40 PD MEDICAL DECISION MAKING - ED course Complexity details: reviewed results, re-evaluated patient, considered diff erential, d/w patient ED course: Patient given droperidol and IV fluids. Feels much better and is tolerating p.o. without difficulty. He would like to try going home at this time. Patient counseled regarding signs and symptoms for which I believe and urgent re- evaluation would be necessary. Patient with good understanding of and agreement to plan and is comfortable going home at this time This document was made in part using voice recognition software. While efforts are made to proofread this document, sound alike and grammatical errors may occur. Departure - Departure Disposition: 01 Home, Self Care Clinical Impression: Cannabis hyperemesis syndrome concurrent with and due to cannabis abuse Condition: Good Instructions: ED Nausea Vomiting Follow-Up: CLARA LOGAN MD [Primary Care Provider] - Within 1 week Comments: You need to quit using marijuana. Follow up with your doctor for further care. Discharge Date/Time: 12/13/20 18:36
[2020-12-13] MEDS ORDERED: DROPERIDOL 5 MG/2 ML VIAL IVP STA (16:32)
[2020-12-13] MEDS ORDERED: SODIUM CHLORIDE 0.9% 1,000 ML IV STA (16:32)
[2020-12-13 16:48] LABS: BASOPHILS % (AUTO) 0.2 %; HGB - HEMOGLOBIN 16.2 g/dL (14.0-18.0); LYMPHOCYTES # (AUTO) 0.5 10^3/uL (1.5-3.5); LYMPHOCYTES % (AUTO) 6.4 %; MEAN CORPUSCULAR HEMOGLOBIN 28.4 pg (27.0-31.0); MEAN CORPUSCULAR HGB CONC 33.8 g/dL (32.0-36.0); MEAN CORPUSCULAR VOLUME 84.2 fL (80.0-94.0); MEAN PLATELET VOLUME 9.2 fL (7.4-11.4); MONOCYTES # (AUTO) 0.4 10^3/uL (0.0-1.0); MONOCYTES % (AUTO) 5.3 %; NEUTROPHILS # (AUTO) 7.3 10^3/uL (1.5-6.6); NEUTROPHILS % (AUTO) 87.7 %; PLT - PLATELET COUNT 329 10^3/uL (130-450); RED CELL DISTRIBUTION WIDTH 14.6 % (12.0-15.0); WHITE BLOOD COUNT 8.3 x10^3/uL (4.8-10.8)
[2020-12-13 17:09] LABS: ALBUMIN 5.1 g/dL (3.2-5.5); ALBUMIN/GLOBULIN RATIO 1.5 (1.0-2.2); BILIRUBIN,TOTAL 0.8 mg/dL (0.2-1.0); CALCIUM 9.9 mg/dL (8.5-10.3); POTASSIUM 3.8 mmol/L (3.5-5.0); TOTAL PROTEIN 8.6 g/dL (6.7-8.2)
[2020-12-13 18:37] VITALS: BP 127/83
== END 2020-12-13 18:36 | disposition home or self-care (01) ==
LOC: EDUNIT# → ED 16:18
DX: R11.2 Nausea with vomiting, unspecified (principal); F12.188 Cannabis abuse with other cannabis-induced disorder; R10.84 Generalized abdominal pain; I10 Essential (primary) hypertension; F17.200 Nicotine dependence, unspecified, uncomplicated
CPT/HCPCS: 36415; 80053; 83690; 85025; 96361; 96374; 99284

== ENCOUNTER 2020-12-14 12:26 | Outpatient (CLI) | payer MEDICAID | END 2020-12-14 12:27 | disposition critical access hospital (66) | LOC: EMS 12:26 | DX: R10.12 Left upper quadrant pain (principal); R11.2 Nausea with vomiting, unspecified; R19.7 Diarrhea, unspecified | CPT/HCPCS: A0425; A0427; A0999 ==

== ENCOUNTER 2020-12-14 12:58 | Observation (INO) | payer MEDICAID ==
[2020-12-14] MEDS ORDERED: DROPERIDOL 5 MG/2 ML VIAL IVP STA ×2 (13:11→15:52)
[2020-12-14] MEDS ORDERED: SODIUM CHLORIDE 0.9% 1,000 ML IV STA (13:11)
--- NOTE | 2020-12-14 13:29 | ED Physician Documentation ---
History of Present Illness - Stated complaint Stated Complaint: ABD PX/N&V - Chief complaint Chief Complaint: Abd Pain - History obtained from History obtained from: Patient, EMS - History of Present Illness Pain level max: 5 Pain level now: 5 - Additonal information Additional information: 40-year-old male brought in by EMS for abdominal pain and vomiting. This is a chronic ongoing issue for the patient. He states that he took his Reglan this morning without relief. Has a history of cannabinoid induced hyperemesis. He has been seen here several times in the past few days for same. Usually feels better after dose of medications, tolerates p.o. and then goes home. No fevers. No chills. No hematemesis. No diarrhea. No constipation. Currently has mild, crampy abdominal pain. Review of Systems Ten Systems: 10 systems reviewed and negative Constitutional: denies: Fever, Chills Cardiac: denies: Chest pain / pressure Respiratory: denies: Dyspnea, Cough GI: reports: Nausea, Vomiting. denies: Diarrhea Skin: denies: Rash Musculoskeletal: denies: Neck pain, Back pain Neurologic: denies: Headache PD PAST MEDICAL HISTORY - Past Medical History Cardiovascular: Hypertension Respiratory: None Neuro: None Endocrine/Autoimmune: None GI: GERD, Ulcers, Pancreatitis : None HEENT: None Psych: Depression, Anxiety, Panic attacks, Other Musculoskeletal: None Derm: None - Past Surgical History Past Surgical History: No General: Colonoscopy, EGD Ortho: Other - Present Medications Home Medications: Ambulatory Orders Medication Instructions Recorded Confirmed Ondansetron Odt [Zofran Odt] 1 tab PO DAILY 12/14/20 12/14/20 Promethazine [Phenergan] 1 tab PO DAILY 12/14/20 12/14/20 - Allergies Allergies/Adverse Reactions: Allergies Allergy/AdvReac Type Severity Reaction Status Date / Time haloperidol [From Haldol] Allergy Severe Anxiety Verified 12/14/20 13:08 ketorolac [From Toradol] AdvReac Anxiety Verified 12/13/20 16:26 - Social History Does the pt smoke?: Yes Smoking Status: Current every day smoker Does the pt drink ETOH?: Yes Does the pt have substance abuse?: Yes - Immunizations Immunizations are current?: Yes Immunizations: Other immun not current - POLST Patient has POLST: No POLST Status: Full Code PD ED PE NORMAL - Vitals Vital signs reviewed: Yes - General General: Alert and oriented X 3, No acute distress, Well developed/nourished - HEENT HEENT: Moist mucous membranes - Neck Neck: Supple, no meningeal sign - Cardiac Cardiac: RRR, Strong equal pulses - Respiratory Respiratory: No respiratory distress, Clear bilaterally - Abdomen Abdomen: Soft, Non tender, Non distended - Back Back: No spinal TTP - Derm Derm: Warm and dry - Extremities Extremities: No edema, No calf tenderness / cord - Neuro Neuro: Alert and oriented X 3 - Psych Psych: Normal mood, Normal affect Results - Vitals Vitals: Vital Signs - 24 hr 12/14/20 12/14/20 12/14/20 12:59 14:00 16:00 Temperature 37.1 C 36.9 C Heart Rate 70 51 L 74 Respiratory 166 H 16 16 Rate Blood Pressure 134/98 H 110/70 226/114 H O2 Saturation 94 98 99 12/14/20 12/14/20 12/14/20 18:00 18:43 20:00 Temperature 36.8 C 36.9 C Heart Rate 68 69 Respiratory 16 16 Rate Blood Pressure 219/140 H 127/78 211/124 H O2 Saturation 96 96 Oxygen O2 Source Room air - Labs Labs: Laboratory Tests 12/14/20 12/14/20 12/14/20 13:30 13:30 14:06 WBC 8.8 RBC 5.18 Hgb 14.8 Hct 43.9 MCV 84.7 MCH 28.6 MCHC 33.7 RDW 14.6 Plt Count 290 MPV 9.2 Neut # (Auto) 7.2 H Lymph # (Auto) 0.9 L Perkins # (Auto) 0.6 Eos # (Auto) 0.0 Baso # (Auto) 0.0 Absolute Nucleated RBC 0.00 Nucleated RBC % 0.0 Sodium 139 Potassium 3.5 Chloride 101 Carbon Dioxide 28 Anion Gap 10.0 BUN 21 H Creatinine 1.1 Estimated GFR (MDRD) 90 Glucose 116 H Calcium 9.3 Total Bilirubin 0.8 AST 22 ALT 27 Alkaline Phosphatase 61 Total Protein 7.5 Albumin 4.5 Globulin 3.0 Albumin/Globulin Ratio 1.5 Lipase 39 Urine Color YELLOW Urine Clarity CLEAR Urine pH 6.0 Ur Specific [place] 1.025 Urine Protein 30 H Urine Glucose (UA) NEGATIVE Urine Ketones NEGATIVE Urine Occult Blood NEGATIVE Urine Nitrite NEGATIVE Urine Bilirubin NEGATIVE Urine Urobilinogen 0.2 (NORMAL) Ur Leukocyte Esterase NEGATIVE Urine RBC None Seen Urine WBC 0-3 Ur Squamous Epith Cells NONE SEEN Urine Bacteria None Seen Urine Mucus Few Strands Ur Microscopic Review INDICATED Urine Culture Comments NOT INDICATED Nasal Adenovirus (PCR) Nasal B. parapertussis DNA (PCR) Nasal Coronavir 229E PCR Nasal Coronavir HKU1 PCR Nasal Coronavir NL63 PCR Nasal Coronavir OC43 PCR Nasal Enterovir/Rhinovir PCR Nasal Influenza B PCR Nasal Influenza A PCR Nasal Parainfluen 1 PCR Nasal Parainfluen 2 PCR Nasal Parainfluen 3 PCR Nasal Parainfluen 4 PCR Nasal RSV (PCR) Nasal B.pertussis DNA PCR Nasal C.pneumoniae (PCR) Seun Human Metapneumo PCR Nasal M.pneumoniae (PCR) Nasal SARS-CoV-2 (PCR) 12/14/20 19:27 WBC RBC Hgb Hct MCV MCH MCHC RDW Plt Count MPV Neut # (Auto) Lymph # (Auto) Perkins # (Auto) Eos # (Auto) Baso # (Auto) Absolute Nucleated RBC Nucleated RBC % Sodium Potassium Chloride Carbon Dioxide Anion Gap BUN Creatinine Estimated GFR (MDRD) Glucose Calcium Total Bilirubin AST ALT Alkaline Phosphatase Total Protein Albumin Globulin Albumin/Globulin Ratio Lipase Urine Color Urine Clarity Urine pH Ur Specific [place] Urine Protein Urine Glucose (UA) Urine Ketones Urine Occult Blood Urine Nitrite Urine Bilirubin Urine Urobilinogen Ur Leukocyte Esterase Urine RBC Urine WBC Ur Squamous Epith Cells Urine Bacteria Urine Mucus Ur Microscopic Review Urine Culture Comments Nasal Adenovirus (PCR) NOT DETECTED Nasal B. parapertussis DNA (PCR) NOT DETECTED Nasal Coronavir 229E PCR NOT DETECTED Nasal Coronavir HKU1 PCR NOT DETECTED Nasal Coronavir NL63 PCR NOT DETECTED Nasal Coronavir OC43 PCR NOT DETECTED Nasal Enterovir/Rhinovir PCR NOT DETECTED Nasal Influenza B PCR NOT DETECTED Nasal Influenza A PCR NOT DETECTED Nasal Parainfluen 1 PCR NOT DETECTED Nasal Parainfluen 2 PCR NOT DETECTED Nasal Parainfluen 3 PCR NOT DETECTED Nasal Parainfluen 4 PCR NOT DETECTED Nasal RSV (PCR) NOT DETECTED Nasal B.pertussis DNA PCR NOT DETECTED Nasal C.pneumoniae (PCR) NOT DETECTED Seun Human Metapneumo PCR NOT DETECTED Nasal M.pneumoniae (PCR) NOT DETECTED Nasal SARS-CoV-2 (PCR) NOT DETECTED PD MEDICAL DECISION MAKING - ED course Complexity details: reviewed old records, reviewed results, re-evaluated patient, considered differential, d/w patient, d/w spa consultant ED course: Patient given multiple doses of antiemetics, nausea and pain medications here. Still unable to tolerate p.o. Given apple juice he is continuing to vomit. Therefore we will place him in observation. Discussed the case with Dr. Barry, hospitalist who accepts This document was made in part using voice recognition software. While efforts are made to proofread this document, sound alike and grammatical errors may occur. Departure - Departure Disposition: ED Place in Observation Clinical Impression: Cannabis hyperemesis syndrome concurrent with and due to cannabis abuse Abdominal pain Qualifiers: Abdominal location: unspecified location Qualified Code(s): R10.9 - Unspecified abdominal pain Condition: Good Discharge Date/Time: 12/14/20 20:47
[2020-12-14 13:39] LABS: BASOPHILS % (AUTO) 0.3 %; EOSINOPHILS % (AUTO) 0.1 %; HCT - HEMATOCRIT 43.9 % (42.0-52.0); HGB - HEMOGLOBIN 14.8 g/dL (14.0-18.0); LYMPHOCYTES # (AUTO) 0.9 10^3/uL (1.5-3.5); LYMPHOCYTES % (AUTO) 10.6 %; MEAN CORPUSCULAR HEMOGLOBIN 28.6 pg (27.0-31.0); MEAN CORPUSCULAR HGB CONC 33.7 g/dL (32.0-36.0); MEAN CORPUSCULAR VOLUME 84.7 fL (80.0-94.0); MEAN PLATELET VOLUME 9.2 fL (7.4-11.4); MONOCYTES # (AUTO) 0.6 10^3/uL (0.0-1.0); MONOCYTES % (AUTO) 7.2 %; NEUTROPHILS # (AUTO) 7.2 10^3/uL (1.5-6.6); NEUTROPHILS % (AUTO) 81.6 %; PLT - PLATELET COUNT 290 10^3/uL (130-450); RED BLOOD COUNT 5.18 10^6/uL (4.70-6.10); RED CELL DISTRIBUTION WIDTH 14.6 % (12.0-15.0); WHITE BLOOD COUNT 8.8 x10^3/uL (4.8-10.8)
[2020-12-14 13:53] LABS: ALBUMIN 4.5 g/dL (3.2-5.5); ALBUMIN/GLOBULIN RATIO 1.5 (1.0-2.2); BILIRUBIN,TOTAL 0.8 mg/dL (0.2-1.0); CALCIUM 9.3 mg/dL (8.5-10.3); CREATININE 1.1 mg/dL (0.6-1.2); POTASSIUM 3.5 mmol/L (3.5-5.0); TOTAL PROTEIN 7.5 g/dL (6.7-8.2)
[2020-12-14 14:16] LABS: BILIRUBIN,URINE NEGATIVE (NEGATIVE); GLUCOSE, URINE (UA) NEGATIVE (NEGATIVE); KETONES,URINE (UA) NEGATIVE (NEGATIVE); LEUKOCYTE ESTERASE, URINE NEGATIVE (NEGATIVE); NITRITE,URINE NEGATIVE (NEGATIVE); OCCULT BLOOD,URINE NEGATIVE (NEGATIVE); PROTEIN,URINE 30 mg/dL (NEGATIVE); UROBILINOGEN,URINE 0.2 (NORMAL) E.U./dL (NORMAL)
[2020-12-14 14:17] LABS: CLARITY,URINE CLEAR (CLEAR)
[2020-12-14 14:34] LABS: BACTERIA,URINE None Seen /HPF (None Seen); MUCUS,URINE Few Strands; RBC,URINE None Seen /HPF (0-5); SQUAMOUS EPITHELIAL CELL,UR NONE SEEN (<= Few); WBC,URINE 0-3 /HPF (0-3)
[2020-12-14] MEDS ORDERED: ONDANSETRON 4 MG/2 ML VIAL IVP STA ×2 (15:22→19:08)
[2020-12-14] MEDS ORDERED: PANTOPRAZOLE 40 MG VIAL IVP STA (15:23)
[2020-12-14] MEDS ORDERED: ACETAMINOPHEN 1,000 MG/100 ML 100 ML IV ONE (16:55)
[2020-12-14] MEDS ORDERED: MORPHINE 2 MG/ML CARPUJECT IVP STA (19:08)
--- NOTE | 2020-12-14 20:07 | HISTORY & PHYSICAL EXAMINATION ---
Chief Complaint - Chief Complaint Chief Complaint: Nausea and vomiting. History of Present Illness - Admitted From Admitted From:: Home - History Obtained From Records Reviewed: Yes History obtained from: Patient, ER Physician, EMR - History of Present Illness HPI Comment/Other: This is a 40-year-old male with a past medical history significant for chronic left upper abdominal pain as well as nausea and vomiting who presents today complaining of nausea and vomiting that began 1 week ago. He states it has progressed on a daily basis and he has had 2 ER visits prior to today. He felt better each time prior to discharge but once he went home, he has been unable to keep anything down despite trying the antiemetics that he was prescribed. He s tates at times he has been able to keep down a little of water but this has not been consistent. He reports feeling hungry but just cannot keep anything down whatsoever. He denies any hematemesis. He does report diarrhea over the past week as well. He was prescribed antibiotics last month for possible viral infection. He states he is having 1-2 bowel movements a day right now. He also reports associated left upper abdominal pain which is about a 6 out of 10. This is chronic for him but at times he says it does resolve completely. He does drink alcohol but reports is only on the weekends. His last drink was on Tuesday when he consumed about a sixpack of beer. He also reports marijuana use but states his last use was this past Tuesday as well. He denies any other drug use. He no longer sees gastroenterology. He has had an extensive work-up in the past including multiple MRIs, CTs without clear etiology of his intractable nausea and vomiting. In the emergency department, he received multiple doses of IV Zofran droperidol but despite this, he failed a p.o. challenge and so medicine was asked to place him in observation for intractable nausea and vomiting. History - Past Medical History Cardiovascular: reports: Hypertension Respiratory: reports: None Neuro: reports: None Endocrine/Autoimmune: reports: None GI: reports: GERD, Ulcers, Pancreatitis : reports: None HEENT: reports: None Psych: reports: Depression, Anxiety, Panic attacks Musculoskeletal: reports: None Derm: reports: None MRSA Hx?: No - Past Surgical History General: reports: Colonoscopy, EGD Ortho: reports: Other (Femur repair.) - Family & Social History Family History: Mother: Alive and Well, Hypertension, Father: Alive and Well, Hypertension, Renal Disease/Failure Family History Comment/Other: He denies any significant family history but review of prior records reveal that his mother and father both have hypertension. His mother also has a history of aortic dissection with aneurysm in her 50s. He also has of brother with a history of bicuspid aortic valve who also had an aneurysm in his 20s. His father also has renal disease. Living arrangement: At home Living Situation: With family Social History Notes: He lives at home with his parents. He currently works in [employer]. He smokes a pack a day and has been doing so for about 20 years. He reports history of marijuana use and prior records reveals his daily use but he states he last use about 1 week ago. He denies a history of heroin, cocaine, methamphetamine use. - Substance History Use: Uses substance without health or social issues: Cannabis, Tobacco - POLST Patient has POLST: No POLST Status: Full Code Meds/Allgy - Home Medications Home Medications: Ambulatory Orders Medication Instructions Recorded Confirmed Ondansetron Odt [Zofran Odt] 1 tab PO DAILY 12/14/20 12/14/20 Promethazine [Phenergan] 1 tab PO DAILY 12/14/20 12/14/20 - Allergies Allergies/Adverse Reactions: Allergies Allergy/AdvReac Type Severity Reaction Status Date / Time haloperidol [From Haldol] Allergy Severe Anxiety Verified 12/14/20 13:08 ketorolac [From Toradol] AdvReac Anxiety Verified 12/13/20 16:26 Review of Systems - Constitutional Constitutional: reports: Fatigue, Poor appetite, Weight loss. denies: Fever, Chills - Ears, Nose & Throat Ears, Nose & Throat: denies: Nasal discharge, Nasal congestion, Sore throat - Cardiovascular Cariovascular: denies: Chest pain, Edema, Lightheadedness, Exertional dyspnea, Decr. exercise tolerance - Respiratory Respiratory: denies: Cough, SOB at rest, SOB with exertion - Gastrointestinal Gastrointestinal: reports: Abdominal pain, Diarrhea, Change in bowel habits, Nausea, Vomiting, Poor appetite. denies: Bile emesis, Jan blood emesis - Genitourinary Genitourinary: denies: Dysuria, Frequency, Urgency, Hematuria - Neurological Neurological: denies: General weakness - Hematologic/Lymphatic Hematologic/Lymphatic: denies: Bleeding tendencies - All Other Systems All Other Systems: reports: Reviewed and negative Prior Level of Functionality: He is independent with his ADL's. Exam - Vital Signs Reviewed Vital Signs: Yes Vital Signs: Vital Signs x48h Temp Pulse Resp BP Pulse Ox 12/14/20 18:43 127/78 12/14/20 18:00 36.8 C 68 16 219/140 H 96 12/14/20 16:00 36.9 C 74 16 226/114 H 99 12/14/20 14:00 51 L 16 110/70 98 12/14/20 12:59 37.1 C 70 166 H 134/98 H 94 - Physical Exam General Appearance: positive: No acute distress, Other (He appears fatigued but is alert.) Eyes Bilateral: positive: Normal inspection, Conjunctivae nml ENT: positive: ENT inspection nml, No signs of dehydration Neck: positive: Nml inspection Respiratory: positive: No respiratory distress. negative: Wheezes, Rales Cardiovascular: positive: Regular rate & rhythm, No murmur. negative: Tachycardia, Systolic murmur Abdomen: positive: Nml bowel sounds, No distention, Tenderness (He does have mild tenderness in the left upper quadrant.). negative: Non-tender, Guarding, Rebound Skin: positive: Warm, Dry Extremities: positive: No pedal edema Neurologic/Psychiatric: positive: Motor nml. negative: Disoriented to person, Disoriented to place Conclusion/Plan - Problem List (1) Cannabis hyperemesis syndrome concurrent with and due to cannabis abuse Conclusion/Plan: Unfortunately, this has been a chronic problem for this patient for many years now and he has had multiple ER visits and multiple admissions for such problem. He has failed treatment in the emergency department and we are asked to place him in observation. I suspect this may related to his marijuana use. We have ordered a urine toxicology screen as in the past, this is also been positive for cocaine. We will place him on Zofran and Compazine as needed. IV fluids with lactated Ringer's. GI cocktail as needed. Clear liquid diet as tolerated. He was encouraged to follow-up with gastroenterology on an outpatient basis (2) Hypertensive urgency Conclusion/Plan: His blood pressure is currently elevated in the 200s systolic. Review of prior records reveals this tends to happen when he has episodes of intractable nausea and vomiting. His blood pressure initially today was in the 130s systolics. Given his nausea and vomiting, we will start him on enalapril every 6 hours. Will consider changing to oral and hypertensive if he remains hypertensive throughout this stay. - Lab Results Lab results reviewed: Yes Miguel Bones: 12/14/20 13:30 12/14/20 13:30 Core Measures - Anticipated LOS I expect patient to be DC'd or transferred within 96 hours.: Yes - Issues Hospital Issues and Management Plan: 40-year-old male presents with intractable nausea and vomiting that has not resolved despite IV antiemetics in the emergency department. We have placed him in observation for ongoing treatment of his nausea and vomiting with antiemetics and IV fluids. - DVT/VTE - Prophylaxis VTE/DVT Device ordered at admit?: Yes VTE/DVT Prophylaxis med ordered at admit?: Yes
[2020-12-14] MEDS: PROCHLORPERAZINE 10 MG/2 ML VIAL IVP PRN (21:03)
[2020-12-14] MEDS: LACTATED RINGERS 1,000 ML IV SCH (21:03)
[2020-12-14] MEDS ORDERED: GI COCKTAIL 120 ML BOTTLE PO PRN (21:10)
[2020-12-14 21:17] LABS: CORONAVIRUS 229E-RESP PCR NOT DETECTED; CORONAVIRUS HKU1-RESP PCR NOT DETECTED; CORONAVIRUS NL63-RESP PCR NOT DETECTED; CORONAVIRUS OC43-RESP PCR NOT DETECTED; HUMAN METAPNEUMOVIRUS NOT DETECTED; INFLUENZA A- RESP PCR PANEL NOT DETECTED; INFLUENZA B - RESP PCR PANEL NOT DETECTED; PARAINFLUENZA VIRUS 1 NOT DETECTED; PARAINFLUENZA VIRUS 2 NOT DETECTED; RHINOVIRUS/ENTEROVIRUS NOT DETECTED; SARS-CoV-2 -RESP PCR PANEL NOT DETECTED
[2020-12-14 21:18] LABS: B. PARAPERTUSSIS- RESP PCR PAN NOT DETECTED; B. PERTUSSIS- RESP PCR PANEL NOT DETECTED; C. PNEUMONIAE- RESP PCR PANEL NOT DETECTED; M. PNEUMONIAE- RESP PCR PANEL NOT DETECTED; PARAINFLUENZA VIRUS 3 NOT DETECTED; PARAINFLUENZA VIRUS 4 NOT DETECTED; RSV- RESP PCR PANEL NOT DETECTED
[2020-12-15] MEDS ORDERED: ENALAPRILAT 1.25 MG/ML VIAL IVP SCH
[2020-12-15] MEDS: SODIUM CHLORIDE FLUSH 0.9% 10 ML SYRINGE IVP SCH ×3 (02:04→15:49)
[2020-12-15 05:28] LABS: BASOPHILS # (AUTO) 0.1 10^3/uL (0.0-0.1); BASOPHILS % (AUTO) 0.9 %; EOSINOPHILS # (AUTO) 0.1 10^3/uL (0.0-0.7); EOSINOPHILS % (AUTO) 1.6 %; HCT - HEMATOCRIT 43.3 % (42.0-52.0); HGB - HEMOGLOBIN 14.2 g/dL (14.0-18.0); LYMPHOCYTES # (AUTO) 3.2 10^3/uL (1.5-3.5); LYMPHOCYTES % (AUTO) 39.2 %; MEAN CORPUSCULAR HEMOGLOBIN 28.2 pg (27.0-31.0); MEAN CORPUSCULAR HGB CONC 32.8 g/dL (32.0-36.0); MEAN CORPUSCULAR VOLUME 85.9 fL (80.0-94.0); MEAN PLATELET VOLUME 9.1 fL (7.4-11.4); MONOCYTES # (AUTO) 0.8 10^3/uL (0.0-1.0); MONOCYTES % (AUTO) 10.4 %; NEUTROPHILS # (AUTO) 3.9 10^3/uL (1.5-6.6); NEUTROPHILS % (AUTO) 47.7 %; PLT - PLATELET COUNT 274 10^3/uL (130-450); RED BLOOD COUNT 5.04 10^6/uL (4.70-6.10); RED CELL DISTRIBUTION WIDTH 14.8 % (12.0-15.0); WHITE BLOOD COUNT 8.1 x10^3/uL (4.8-10.8)
[2020-12-15 05:39] LABS: CALCIUM 9.3 mg/dL (8.5-10.3); POTASSIUM 3.7 mmol/L (3.5-5.0)
[2020-12-15] MEDS: LACTATED RINGERS 1,000 ML IV SCH (07:32)
[2020-12-15] MEDS: ENOXAPARIN 40 MG/0.4 ML SYRINGE SUBQ SCH (08:03)
[2020-12-15] MEDS: polyethylene glycoL 3350 17 GM PACKET PO SCH (08:03)
[2020-12-15] MEDS: DOCUSATE SODIUM 250 MG CAPSULE PO SCH (08:03)
[2020-12-15] MEDS: ACETAMINOPHEN 325 MG TABLET PO PRN ×2 (08:04→12:16)
[2020-12-15 11:40] LABS: MUDS CUTOFF CONCENTRATIONS CUTOFF CONC BELOW:
[2020-12-15 11:51] LABS: AMPHETAMINE SCREEN,URINE NEGATIVE (NEGATIVE); BARBITURATE SCREEN,UR NEGATIVE (NEGATIVE); BENZODIAZEPINES SCREEN, URINE NEGATIVE (NEGATIVE); COCAINE SCREEN URINE NEGATIVE (NEGATIVE); METHADONE SCREEN, URINE NEGATIVE (NEGATIVE); METHAMPHETAMINES SCREEN, URINE NEGATIVE (NEGATIVE); OPIATE SCREEN, URINE POSITIVE (NEGATIVE); OXYCODONE SCREEN, URINE NEGATIVE (NEGATIVE); PROPOXYPHENE SCREEN, URINE NEGATIVE (NEGATIVE); THC CANNABINOID SCREEN, URINE POSITIVE (NEGATIVE); TRICYCLIC ANTIDEPRESSANT,URINE NEGATIVE (NEGATIVE)
--- NOTE | 2020-12-15 12:14 | PROVIDER PROGRESS NOTE ---
Progress Note December 15, 2020 12:08 PM He tolerated clear liquids this morning and is asking me if I could advance his diet to a full liquid diet by lunchtime. He is not had any more emesis. Has mild abdominal cramping with the food but nothing severe that he can handle he tells me. He denies fever, chills. Denies any bloody diarrhea. Denies chest pain, cough, shortness of breath. Since being on MedSurg he has received Tylenol, Colace, Lovenox, lactated Ringer's. After 2 bags, Compazine. Temperature is 37.1. Heart rate is 48. He is consistently bradycardic in the 40s to 50s. Blood pressure 132/77. Respirations 18 and unlabored. 99% on room air. Last night with the p.m. shift of nurses his systolic was 211-220. No symptoms. Since then his blood pressures come back down. He is a 5 foot 8 inch black male who weighs 69 kg. Slender, alert, watching TV. Comfortable. States that he does not need anything from us right now other than to advance his diet. Neck is supple. Lungs are clear to auscultation and percussion. PMI normally placed with a regular rate and rhythm. Abdomen is firm, mild achiness with palpation but no rebound or guarding. No masses. Nauseated. Extremities are thin, no edema. December 15 toxicology screen positive for opiates and cannabinoids Sodium 139, potassium 3.7. BUN 20, creatinine 1. White cell count 8.1, hemoglobin 14.2, hematocrit 43.3, platelets 274 Assessment/plan Cannabis hyperemesis syndrome concurrent with and due to cannabis use. Ongoing and persistent in spite of advice to the contrary hypertensive urgency associated with nausea and vomiting He is already improving. Has not received much medications from us except a couple of antiemetic drugs. We will continue to hydrate. Given his antiemetics. I will advance his diet to full liquids this afternoon. See if he tolerates that and advance that to regular diet tonight. Enalapril IV every 6 hours is working well for his blood pressure. Since he is tolerating oral, changed to p.o.
[2020-12-15] MEDS: MORPHINE 2 MG/ML CARPUJECT IVP PRN ×3 (12:16→21:10)
[2020-12-15] MEDS: ONDANSETRON 4 MG/2 ML VIAL IVP PRN ×2 (12:48→21:15)
--- NOTE | 2020-12-15 13:52 | PHARMACY PROGRESS NOTE ---
- Best Possible Medication History Admit Date and Time: 12/14/202004 Processed by: Nursing Medication History completed: Yes Patient Interview: Completed Secondary Source(s): Pharmacy records, Insurance records, Previous admit records As the person ultimately responsible for medication therapy, providers are able to order a medication from an existing home medication list in [facility] via the "Reconcile Routine" prior to Confirmation of that medication by director of sales support. Such practice is discouraged except when the physician, in their clinical judgment, deems that a medical need exists for a medication without regard to previous use.
[2020-12-15] MEDS: PROCHLORPERAZINE 10 MG/2 ML VIAL IVP PRN (14:28)
[2020-12-15] MEDS: ENALAPRIL 5 MG TABLET PO SCH (14:50)
[2020-12-15] MEDS ORDERED: hydrALAZINE INJ 20 MG/ML VIAL IVP PRN (17:09)
[2020-12-15] MEDS: SODIUM CHLORIDE FLUSH 0.9% 10 ML SYRINGE IVP PRN (21:11)
[2020-12-16] MEDS: SODIUM CHLORIDE FLUSH 0.9% 10 ML SYRINGE IVP SCH ×3 (00:40→17:04)
[2020-12-16] MEDS: MORPHINE 2 MG/ML CARPUJECT IVP PRN ×3 (02:12→17:04)
[2020-12-16] MEDS: SODIUM CHLORIDE FLUSH 0.9% 10 ML SYRINGE IVP PRN (02:12)
[2020-12-16] MEDS: PROCHLORPERAZINE 10 MG/2 ML VIAL IVP PRN (02:12)
[2020-12-16 05:08] LABS: BASOPHILS # (AUTO) 0.1 10^3/uL (0.0-0.1); BASOPHILS % (AUTO) 1.1 %; EOSINOPHILS # (AUTO) 0.3 10^3/uL (0.0-0.7); EOSINOPHILS % (AUTO) 4.2 %; HCT - HEMATOCRIT 43.7 % (42.0-52.0); HGB - HEMOGLOBIN 14.5 g/dL (14.0-18.0); LYMPHOCYTES # (AUTO) 2.3 10^3/uL (1.5-3.5); LYMPHOCYTES % (AUTO) 35.2 %; MEAN CORPUSCULAR HEMOGLOBIN 28.1 pg (27.0-31.0); MEAN CORPUSCULAR HGB CONC 33.2 g/dL (32.0-36.0); MEAN CORPUSCULAR VOLUME 84.7 fL (80.0-94.0); MEAN PLATELET VOLUME 9.3 fL (7.4-11.4); MONOCYTES # (AUTO) 0.7 10^3/uL (0.0-1.0); MONOCYTES % (AUTO) 10.5 %; NEUTROPHILS # (AUTO) 3.2 10^3/uL (1.5-6.6); NEUTROPHILS % (AUTO) 48.8 %; PLT - PLATELET COUNT 261 10^3/uL (130-450); RED BLOOD COUNT 5.16 10^6/uL (4.70-6.10); RED CELL DISTRIBUTION WIDTH 13.9 % (12.0-15.0); WHITE BLOOD COUNT 6.6 x10^3/uL (4.8-10.8)
[2020-12-16 05:23] LABS: CALCIUM 9.3 mg/dL (8.5-10.3); POTASSIUM 3.4 mmol/L (3.5-5.0)
[2020-12-16] MEDS ORDERED: POTASSIUM CHLORIDE 20 MEQ TABLET PO ONE (07:00)
[2020-12-16] MEDS: polyethylene glycoL 3350 17 GM PACKET PO SCH (08:39)
[2020-12-16] MEDS: ENOXAPARIN 40 MG/0.4 ML SYRINGE SUBQ SCH (08:39)
[2020-12-16] MEDS: DOCUSATE SODIUM 250 MG CAPSULE PO SCH (08:39)
[2020-12-16] MEDS: PANTOPRAZOLE 40 MG TABLET PO SCH (08:39)
[2020-12-16] MEDS: ENALAPRIL 5 MG TABLET PO SCH (08:39)
[2020-12-16] MEDS: ACETAMINOPHEN 325 MG TABLET PO PRN (08:39)
[2020-12-16] MEDS: ONDANSETRON 4 MG/2 ML VIAL IVP PRN (08:40)
--- NOTE | 2020-12-16 10:18 | PROVIDER PROGRESS NOTE ---
Assessment/Plan - Problem List (1) Cannabis hyperemesis syndrome concurrent with and due to cannabis abuse Assessment/Plan: 12/16 pt still complain of nausea and vomiting with upper quadrant abdomen discomfort. Patient had multiple admission with same complaints. Unfortunately, Patient still smoke marijuana. Since patient still has symptoms, we will keep you patient for clear liquid diet and advance diet as the patient tolerated, add protonic and GI cocktail as needed. Antiemesis as needed, pain control, pt is encouraged to follow-up with tea and spice supervisor on outpatient basis (2) Hypertensive urgency Conclusion/Plan: 12/16 Since the patient has a history of variation quickly with his blood pressure, Review of prior records reveals this tends to happen when he has episodes of intractable nausea and vomiting. Patient has no other complaints, patient denies headache, Chest pain. We will continue intravenous hydralazine as needed, and vasotec. - Current Meds Current Meds: Current Medications Generic Name Dose Route Start Last Admin Trade Name Freq PRN Reason Stop Dose Admin Acetaminophen 650 mg 12/14/20 20:12/16/20 08:39 Acetaminophen 325 Mg Tablet PO 650 mg Q4HR PRN Administration Pain 1 to 4 Docusate Sodium 250 - 500 mg 12/15/20 09:00 12/16/20 08:39 Docusate Sodium 250 Mg Capsule PO Not Given DAILY [facility] Enalapril Maleate 5 mg 12/15/20 13:00 12/16/20 08:39 Enalapril 5 Mg Tablet PO 5 mg DAILY [facility] Administration Enoxaparin Sodium 40 mg 12/15/20 09:00 12/16/20 08:39 Enoxaparin 40 Mg/0.4 Ml Syringe SUBQ 40 mg DAILY [facility] Administration Morphine Sulfate 2 mg 12/14/20 20:12/16/20 08:40 Morphine 2 Mg/Ml Carpuject IVP 2 mg Q2HR PRN Administration Pain 8 to 10 Ondansetron HCl 4 mg 12/14/20 20:12/16/20 08:40 Ondansetron 4 Mg/2 Ml Vial IVP 4 mg Q6HR PRN Administration Nausea / Vomiting Pantoprazole Sodium 40 mg 12/16/20 09:00 12/16/20 08:39 Pantoprazole 40 Mg Tablet PO 40 mg QDAC [facility] Administration Polyethylene Glycol 17 gm 12/15/20 09:00 12/16/20 08:39 Polyethylene Glycol 3350 17 Gm Packet PO Not Given DAILY [facility] Prochlorperazine Edisylate 10 mg 12/14/20 20:05 12/16/20 02:12 Prochlorperazine 10 Mg/2 Ml Vial IVP 10 mg Q6HR PRN Administration Nausea / Vomiting Sodium Chloride 10 ml 12/14/20 20:05 12/16/20 02:12 Sodium Chloride Flush 0.9% 10 Ml Syringe IVP 10 ml PRN PRN Administration NEEDED PER PROVIDER ORDERS Sodium Chloride 10 ml 12/15/20 01:00 12/16/20 08:39 Sodium Chloride Flush 0.9% 10 Ml Syringe IVP 10 ml 0100,0900,1700 [facility]OTT Administration - Lab Result Fish Bone Diagrams: 12/16/20 05:02 12/16/20 05:02 - Additional Planning My Orders: My Active Orders 12/16/20 09:00 Pantoprazole [Protonix] 40 mg PO QDAC 12/16/20 Lunch Clear Liquid Diet [DIET] Subjective - Subjective Patient Reports: Nausea Nursing Reports: Nausea, Vomitting Objective Vital Signs: Vital Signs - 24 hr 12/15/20 12/15/20 12/15/20 13:00 15:46 16:40 Temperature 36.6 C 37.6 C Heart Rate [ 53 L 57 L Brachial] Respiratory 20 18 Rate Blood Pressure 140/87 H [Left Brachial artery] Blood Pressure 245/127 H 191/100 H [Right Brachial artery] O2 Saturation 98 98 12/15/20 12/15/20 12/15/20 17:45 17:49 21:00 Temperature 37.1 C Heart Rate [ 57 L 54 L 47 L Brachial] Respiratory 18 Rate Blood Pressure [Left Brachial artery] Blood Pressure 126/67 129/70 136/80 H [Right Brachial artery] O2 Saturation 98 12/16/20 12/16/20 12/16/20 00:41 05:00 08:00 Temperature 37.2 C 37.1 C 36.6 C Heart Rate [ 50 L 48 L 54 L Brachial] Respiratory 19 18 18 Rate Blood Pressure [Left Brachial artery] Blood Pressure 126/70 146/77 H 177/109 H [Right Brachial artery] O2 Saturation 97 97 100 Oxygen O2 Source Room air I&O (Last 24 Hrs): Intake and Output Totals x24h 0512/15/20 12/16/20 23:59 23:59 23:59 Intake Total 1100 3750.000 790 Output Total 210 100 Balance 1100 3540.000 690 General: Alert, Oriented x3, Cooperative, No acute distress HEENT: Atraumatic Neck: Supple Lymphatic: no adenopathy Neuro: Alert, Non Focal, Oriented Times 3 Cardiovascular: Regular rate, Normal S1, Normal S2 Respiratory: Chest non-tender, No respiratory distress, Breath sounds nml Abdomen: Normal bowel sounds, Soft, No tenderness Extremities: Normal pulses - Results Results: Laboratory Results WBC 6.6 x10^3/uL (4.8-10.8) 12/16/20 05:02 RBC 5.16 10^6/uL (4.70-6.10) 12/16/20 05:02 Hgb 14.5 g/dL (14.0-18.0) 12/16/20 05:02 Hct 43.7 % (42.0-52.0) 12/16/20 05:02 MCV 84.7 fL (80.0-94.0) 12/16/20 05:02 MCH 28.1 pg (27.0-31.0) 12/16/20 05:02 MCHC 33.2 g/dL (32.0-36.0) 12/16/20 05:02 RDW 13.9 % (12.0-15.0) 12/16/20 05:02 Plt Count 261 10^3/uL (130-450) 12/16/20 05:02 MPV 9.3 fL (7.4-11.4) 12/16/20 05:02 Neut # (Auto) 3.2 10^3/uL (1.5-6.6) 12/16/20 05:02 Lymph # (Auto) 2.3 10^3/uL (1.5-3.5) 12/16/20 05:02 [place] # (Auto) 0.7 10^3/uL (0.0-1.0) 12/16/20 05:02 Eos # (Auto) 0.3 10^3/uL (0.0-0.7) 12/16/20 05:02 Baso # (Auto) 0.1 10^3/uL (0.0-0.1) 12/16/20 05:02 Absolute Nucleated RBC 0.00 x10^3/uL 12/16/20 05:02 Nucleated RBC % 0.0 /100WBC 12/16/20 05:02 Sodium 137 mmol/L (135-145) 12/16/20 05:02 Potassium 3.4 mmol/L (3.5-5.0) L 12/16/20 05:02 Chloride 100 mmol/L (101-111) L 12/16/20 05:02 Carbon Dioxide 27 mmol/L (21-32) 12/16/20 05:02 Anion Gap 10.0 (6-13) 12/16/20 05:02 BUN 18 mg/dL (6-20) 12/16/20 05:02 Creatinine 1.0 mg/dL (0.6-1.2) 12/16/20 05:02 Estimated GFR (MDRD) 100 (>89) 12/16/20 05:02 Glucose 101 mg/dL (70-100) H 12/16/20 05:02 Calcium 9.3 mg/dL (8.5-10.3) 12/16/20 05:02 Total Bilirubin 0.8 mg/dL (0.2-1.0) 12/14/20 13:30 AST 22 IU/L (10-42) 12/14/20 13:30 ALT 27 IU/L (10-60) 12/14/20 13:30 Alkaline Phosphatase 61 IU/L (42-121) 12/14/20 13:30 Total Protein 7.5 g/dL (6.7-8.2) 12/14/20 13:30 Albumin 4.5 g/dL (3.2-5.5) 12/14/20 13:30 Globulin 3.0 g/dL (2.1-4.2) 12/14/20 13:30 Albumin/Globulin Ratio 1.5 (1.0-2.2) 12/14/20 13:30 Lipase 39 U/L (22-51) 12/14/20 13:30 Urine Color YELLOW 12/14/20 14:06 Urine Clarity CLEAR (CLEAR) 12/14/20 14:06 Urine pH 6.0 PH (5.0-7.5) 12/14/20 14:06 Ur Specific [place] 1.025 (1.002-1.030) 12/14/20 14:06 Urine Protein 30 mg/dL (NEGATIVE) H 12/14/20 14:06 Urine Glucose (UA) NEGATIVE mg/dL (NEGATIVE) 12/14/20 14:06 Urine Ketones NEGATIVE mg/dL (NEGATIVE) 12/14/20 14:06 Urine Occult Blood NEGATIVE (NEGATIVE) 12/14/20 14:06 Urine Nitrite NEGATIVE (NEGATIVE) 12/14/20 14:06 Urine Bilirubin NEGATIVE (NEGATIVE) 12/14/20 14:06 Urine Urobilinogen 0.2 (NORMAL) E.U./dL (NORMAL) 12/14/20 14:06 Ur Leukocyte Esterase NEGATIVE (NEGATIVE) 12/14/20 14:06 Urine RBC None Seen /HPF (0-5) 12/14/20 14:06 Urine WBC 0-3 /HPF (0-3) 12/14/20 14:06 Ur Squamous Epith Cells NONE SEEN (<= Few) 12/14/20 14:06 Urine Bacteria None Seen /HPF (None Seen) 12/14/20 14:06 Urine Mucus Few Strands 12/14/20 14:06 Ur Microscopic Review INDICATED 12/14/20 14:06 Urine Culture Comments NOT INDICATED 12/14/20 14:06 Nasal Adenovirus (PCR) NOT DETECTED 12/14/20 19:27 Nasal B. parapertussis DNA (PCR) NOT DETECTED 12/14/20 19:27 Nasal Coronavir 229E PCR NOT DETECTED 12/14/20 19:27 Nasal Coronavir HKU1 PCR NOT DETECTED 12/14/20 19:27 Nasal Coronavir NL63 PCR NOT DETECTED 12/14/20 19:27 Nasal Coronavir OC43 PCR NOT DETECTED 12/14/20 19:27 Nasal Enterovir/Rhinovir PCR NOT DETECTED 12/14/20 19:27 Nasal Influenza B PCR NOT DETECTED 12/14/20 19:27 Nasal Influenza A PCR NOT DETECTED 12/14/20 19:27 Nasal Parainfluen 1 PCR NOT DETECTED 12/14/20 19:27 Nasal Parainfluen 2 PCR NOT DETECTED 12/14/20 19:27 Nasal Parainfluen 3 PCR NOT DETECTED 12/14/20 19:27 Nasal Parainfluen 4 PCR NOT DETECTED 12/14/20 19:27 Nasal RSV (PCR) NOT DETECTED 12/14/20 19:27 Nasal B.pertussis DNA PCR NOT DETECTED 12/14/20 19:27 Nasal C.pneumoniae (PCR) NOT DETECTED 12/14/20 19:27 Seun Human Metapneumo PCR NOT DETECTED 12/14/20 19:27 Nasal M.pneumoniae (PCR) NOT DETECTED 12/14/20 19:27 Nasal SARS-CoV-2 (PCR) NOT DETECTED 12/14/20 19:27 Urine Opiates Screen POSITIVE (NEGATIVE) H 12/15/20 11:30 Ur Oxycodone Screen NEGATIVE (NEGATIVE) 12/15/20 11:30 Urine Methadone Screen NEGATIVE (NEGATIVE) 12/15/20 11:30 Ur Propoxyphene Screen NEGATIVE (NEGATIVE) 12/15/20 11:30 Ur Barbiturates Screen NEGATIVE (NEGATIVE) 12/15/20 11:30 Ur Tricyclics Screen NEGATIVE (NEGATIVE) 12/15/20 11:30 Ur Phencyclidine Scrn NEGATIVE (NEGATIVE) 12/15/20 11:30 Ur Amphetamine Screen NEGATIVE (NEGATIVE) 12/15/20 11:30 U Methamphetamines Scrn NEGATIVE (NEGATIVE) 12/15/20 11:30 U Benzodiazepines Scrn NEGATIVE (NEGATIVE) 12/15/20 11:30 Urine Cocaine Screen NEGATIVE (NEGATIVE) 12/15/20 11:30 U Cannabinoids Screen POSITIVE (NEGATIVE) H 12/15/20 11:30 - Procedures Procedures: Procedures EXCISION OF ESOPHAGUS, ENDO, DIAGN (04/29/17) EXCISION OF STOMACH, ENDO, DIAGN (04/29/17) INSPECTION OF LOWER INTESTINAL TRACT, ENDO (04/29/17) ABX Reporting Has patient been on IV antibiotics over the past 48 hours?: No Current Medications - Current Medications Current Medications: Active Medications Acetaminophen (Acetaminophen 325 Mg Tablet) 650 mg PO Q4HR PRN PRN Reason: Pain 1 to 4 Last Admin: 12/16/20 08:39 Dose: 650 mg Documented by: Docusate Sodium (Docusate Sodium 250 Mg Capsule) 250 - 500 mg PO DAILY [facility] Last Admin: 12/16/20 08:39 Dose: Not Given Documented by: Enalapril Maleate (Enalapril 5 Mg Tablet) 5 mg PO DAILY [facility] Last Admin: 12/16/20 08:39 Dose: 5 mg Documented by: Enoxaparin Sodium (Enoxaparin 40 Mg/0.4 Ml Syringe) 40 mg SUBQ DAILY [facility] Last Admin: 12/16/20 08:39 Dose: 40 mg Documented by: Hydralazine HCl (Hydralazine Inj 20 Mg/Ml Vial) 10 mg IVP TID PRN PRN Reason: Hypertensive Emergency Morphine Sulfate (Morphine 2 Mg/Ml Carpuject) 2 mg IVP Q2HR PRN PRN Reason: Pain 8 to 10 Last Admin: 12/16/20 08:40 Dose: 2 mg Documented by: Multi-Ingredient Mouthwash/Gargle (Gi Cocktail 120 Ml Bottle) 30 ml PO Q4H PRN PRN Reason: Abdominal Pain Ondansetron HCl (Ondansetron 4 Mg/2 Ml Vial) 4 mg IVP Q6HR PRN PRN Reason: Nausea / Vomiting Last Admin: 12/16/20 08:40 Dose: 4 mg Documented by: Pantoprazole Sodium (Pantoprazole 40 Mg Tablet) 40 mg PO QDAC [facility] Last Admin: 12/16/20 08:39 Dose: 40 mg Documented by: Polyethylene Glycol (Polyethylene Glycol 3350 17 Gm Packet) 17 gm PO DAILY [facility] Last Admin: 12/16/20 08:39 Dose: Not Given Documented by: Prochlorperazine Edisylate (Prochlorperazine 10 Mg/2 Ml Vial) 10 mg IVP Q6HR PRN PRN Reason: Nausea / Vomiting Last Admin: 12/16/20 02:12 Dose: 10 mg Documented by: Sodium Chloride (Sodium Chloride Flush 0.9% 10 Ml Syringe) 10 ml IVP PRN PRN PRN Reason: NEEDED PER PROVIDER ORDERS Last Admin: 12/16/20 02:12 Dose: 10 ml Documented by: Sodium Chloride (Sodium Chloride Flush 0.9% 10 Ml Syringe) 10 ml IVP 0100,0900,1700 [facility] Last Admin: 12/16/20 08:39 Dose: 10 ml Documented by: Ondansetron Odt [Zofran Odt] 1 tab PO DAILY 12/14/20 Promethazine [Phenergan] 1 tab PO DAILY 12/14/20
[2020-12-17] MEDS: MORPHINE 2 MG/ML CARPUJECT IVP PRN ×2 (00:33→02:57)
[2020-12-17] MEDS: SODIUM CHLORIDE FLUSH 0.9% 10 ML SYRINGE IVP SCH ×2 (00:33→08:31)
[2020-12-17] MEDS: ONDANSETRON 4 MG/2 ML VIAL IVP PRN (00:33)
[2020-12-17] MEDS: SODIUM CHLORIDE FLUSH 0.9% 10 ML SYRINGE IVP PRN ×3 (00:41→03:14)
[2020-12-17] MEDS: PROCHLORPERAZINE 10 MG/2 ML VIAL IVP PRN (02:57)
[2020-12-17 04:30] LABS: BASOPHILS # (AUTO) 0.1 10^3/uL (0.0-0.1); BASOPHILS % (AUTO) 1.3 %; EOSINOPHILS # (AUTO) 0.5 10^3/uL (0.0-0.7); EOSINOPHILS % (AUTO) 8.5 %; HCT - HEMATOCRIT 42.8 % (42.0-52.0); HGB - HEMOGLOBIN 14.6 g/dL (14.0-18.0); LYMPHOCYTES # (AUTO) 2.4 10^3/uL (1.5-3.5); LYMPHOCYTES % (AUTO) 44.5 %; MEAN CORPUSCULAR HGB CONC 34.1 g/dL (32.0-36.0); MEAN CORPUSCULAR VOLUME 84.9 fL (80.0-94.0); MEAN PLATELET VOLUME 9.2 fL (7.4-11.4); MONOCYTES # (AUTO) 0.6 10^3/uL (0.0-1.0); MONOCYTES % (AUTO) 10.9 %; NEUTROPHILS # (AUTO) 1.8 10^3/uL (1.5-6.6); NEUTROPHILS % (AUTO) 34.6 %; PLT - PLATELET COUNT 238 10^3/uL (130-450); RED BLOOD COUNT 5.04 10^6/uL (4.70-6.10); RED CELL DISTRIBUTION WIDTH 13.6 % (12.0-15.0); WHITE BLOOD COUNT 5.3 x10^3/uL (4.8-10.8)
[2020-12-17 04:38] LABS: CREATININE 1.1 mg/dL (0.6-1.2); POTASSIUM 3.4 mmol/L (3.5-5.0)
[2020-12-17] MEDS: PANTOPRAZOLE 40 MG TABLET PO SCH (06:40)
[2020-12-17] MEDS: ACETAMINOPHEN 325 MG TABLET PO PRN (08:08)
[2020-12-17] MEDS ORDERED: METOCLOPRAMIDE 10 MG/2 ML VIAL IVP PRN (08:08)
[2020-12-17] MEDS: ENALAPRIL 5 MG TABLET PO SCH (08:08)
[2020-12-17] MEDS: ENOXAPARIN 40 MG/0.4 ML SYRINGE SUBQ SCH (08:09)
[2020-12-17] MEDS: DOCUSATE SODIUM 250 MG CAPSULE PO SCH (08:09)
[2020-12-17] MEDS: polyethylene glycoL 3350 17 GM PACKET PO SCH (08:09)
[2020-12-17 13:08] VITALS: BP 113/60
--- NOTE | 2020-12-17 13:47 | DISCHARGE SUMMARY ---
Discharge Summary Admit Date: 12/14/20 Discharge Date: 12/17/20 Discharging Provider: Loi Mixtu Code Status: Attempt Resuscitation Condition at Discharge: Good Discharge Disposition: 01 Home, Self Care - DIAGNOSES Admission Diagnoses: Cannabis hyperemesis syndrome concurrent with and due to cannabis abuse Hypertensive urgency Discharge Diagnoses with Status of Each Condition: Cannabis hyperemesis syndrome concurrent with and due to cannabis abuse: Chronic. Nausea and vomiting improved/resolved. Patient able to tolerate p.o. intake. Hypertensive urgency: Resolved. Currently normotensive. - HPI History of Present Illness: This is a 40-year-old male with a past medical history significant for chronic left upper abdominal pain as well as nausea and vomiting who presents today complaining of nausea and vomiting that began 1 week ago. He states it has progressed on a daily basis and he has had 2 ER visits prior to today. He felt better each time prior to discharge but once he went home, he has been unable to keep anything down despite trying the antiemetics that he was prescribed. He states at times he has been able to keep down a little of water but this has not been consistent. He reports feeling hungry but just cannot keep anything down whatsoever. He denies any hematemesis. He does report diarrhea over the past week as well. He was prescribed antibiotics last month for possible viral infection. He states he is having 1-2 bowel movements a day right now. He also reports associated left upper abdominal pain which is about a 6 out of 10. This is chronic for him but at times he says it does resolve completely. He does drink alcohol but reports is only on the weekends. His last drink was on Tuesday when he consumed about a sixpack of beer. He also reports marijuana use but states his last use was this past Tuesday as well. He denies any other drug use. He no longer sees gastroenterology. He has had an extensive work-up in the past including multiple MRIs, CTs without clear etiology of his intractable nausea and vomiting. In the emergency department, he received multiple doses of IV Zofran droperidol but despite this, he failed a p.o. challenge and so medicine was asked to place him in observation for intractable nausea and vomiting. - HOSPITAL COURSE Hospital Course: Patient was admitted to the hospital initially made n.p.o. IV hydration started. He was treated with Zofran, Compazine and Reglan. His symptoms improved over the course of 2 to 3 days. His diet was advanced accordingly. He tolerated a diet and was discharged home. - ALLERGIES Allergies/Adverse Reactions: Allergies Allergy/AdvReac Type Severity Reaction Status Date / Time haloperidol [From Haldol] Allergy Severe Anxiety Verified 12/14/20 13:08 ketorolac [From Toradol] AdvReac Anxiety Verified 12/13/20 16:26 - MEDICATIONS Home Medications: Ambulatory Orders Medication Instructions Recorded Confirmed Ondansetron Odt [Zofran Odt] 1 tab PO DAILY 12/14/20 12/14/20 Promethazine [Phenergan] 1 tab PO DAILY 12/14/20 12/14/20 - PHYSICAL EXAM AT DISCHARGE General Appearance: positive: No acute distress, Alert Eyes Bilateral: positive: PERRL, EOMI ENT: positive: No signs of dehydration Neck: positive: No JVD, Trachea midline Respiratory: positive: Chest non-tender, No respiratory distress, Breath sounds nml. negative: Wheezes, Rales, Rhonchi Cardiovascular: positive: No murmur, Bradycardia (chronic, asymptomatic) Abdomen: positive: Non-tender, No organomegaly, No distention. negative: Guarding, Rebound Back: positive: Nml inspection Skin: positive: Color nml, No rash, Warm, Dry Extremities: positive: Non-tender, Full ROM, Nml appearance, No pedal edema Neurologic/Psychiatric: positive: Oriented x3, Mood/affect nml - LABS Result Diagrams: 12/17/20 04:25 12/17/20 04:25 - TIME SPENT Time Spent in Discharge (Minutes): 20
--- NOTE | 2020-12-17 13:52 | Discharge Plan ---
Discharge Plan Problem Reviewed?: Yes Disposition: Home, Self Care Condition: Good Diet: Regular Activity Restrictions: Activity as Tolerated Shower Restrictions: No Health Concerns: You were admitted with nausea and vomiting. You were started on IV hydration and treated with Zofran and Compazine. Your diet was advanced from n.p.o. to clear liquids and then full liquid diet which she tolerated well. Consequently you are being discharged home. You had been advised about the contributing effects of your continued cannabis use on your recurrent nausea and vomiting Plan of Treatment: You were admitted with nausea and vomiting. You were started on IV hydration and treated with Zofran and Compazine. Your diet was advanced from n.p.o. to clear liquids and then full liquid diet which she tolerated well. Consequently you are being discharged home. You had been advised about the contributing effects of your continued cannabis use on your recurrent nausea and vomiting Care Goals: You were admitted with nausea and vomiting. You were started on IV hydration and treated with Zofran and Compazine. Your diet was advanced from n.p.o. to clear liquids and then full liquid diet which she tolerated well. Consequently you are being discharged home. You had been advised about the contributing effects of your continued cannabis use on your recurrent nausea and vomiting Assessment: You were admitted with nausea and vomiting. You were started on IV hydration and treated with Zofran and Compazine. Your diet was advanced from n.p.o. to clear liquids and then full liquid diet which she tolerated well. Consequently you are being discharged home. You had been advised about the contributing effects of your continued cannabis use on your recurrent nausea and vomiting No Smoking: If you smoke, Please STOP! Call for help.
[2020-12-18] MEDS ORDERED: MULTIVITAMIN W/MINERALS TABLET PO SCH (08:00)
== END 2020-12-17 14:25 | disposition home or self-care (01) ==
LOC: EDUNIT# → ED 12:58 → MS2 20:05
PROVIDERS: ADMIT Internal Medicine; ATTEND Internal Medicine
DX: R11.2 Nausea with vomiting, unspecified (principal); F12.10 Cannabis abuse, uncomplicated; I16.0 Hypertensive urgency; F17.210 Nicotine dependence, cigarettes, uncomplicated; I10 Essential (primary) hypertension; Z20.822 Contact with and (suspected) exposure to COVID-19
CPT/HCPCS: 0202U; 36415; 80048; 80053; 80306; 81001; 83690; 85025; 96365; 96372; 96375; 96376; 99285; A9270; G0378; J0131; J1650; J2765; J7120; 81003; 87086

== ENCOUNTER 2021-02-05 07:32 | Outpatient (CLI) | payer MEDICAID | END 2021-02-05 07:33 | disposition critical access hospital (66) | LOC: EMS 07:32 | DX: R10.9 Unspecified abdominal pain (principal); R11.2 Nausea with vomiting, unspecified | CPT/HCPCS: A0425; A0429 ==

== ENCOUNTER 2021-02-05 08:08 | Observation (INO) | payer MEDICAID ==
[2021-02-05] MEDS ORDERED: MORPHINE 2 MG/ML CARPUJECT IVP STA ×2 (08:25→10:14)
[2021-02-05] MEDS ORDERED: DROPERIDOL 5 MG/2 ML VIAL IVP STA ×2 (08:25→10:14)
--- NOTE | 2021-02-05 08:26 | ED Physician Documentation ---
PD HPI NVD - Stated complaint Stated Complaint: ABD PX - History obtained from History obtained from: Patient, EMS - Additonal information Additional information: 40-year-old gentleman with cannabinoid hyperemesis syndrome presents by marysol maloney with 4 days of left upper quadrant pain and vomiting. He has muscle cramping which she feels is consistent with dehydration. Denies fevers or chills. All the symptoms are consistent with prior episodes of cannabinoid hyperemesis. Review of Systems Ten Systems: 10 systems reviewed and negative Constitutional: reports: Fatigue, Sweats. denies: Fever, Chills Cardiac: denies: Chest pain / pressure, Palpitations Respiratory: denies: Dyspnea, Cough PD PAST MEDICAL HISTORY - Past Medical History Cardiovascular: Hypertension Respiratory: None Neuro: None Endocrine/Autoimmune: None GI: GERD, Ulcers, Pancreatitis : None HEENT: None Psych: Depression, Anxiety, Panic attacks, Other Musculoskeletal: None Derm: None - Past Surgical History Past Surgical History: No General: Colonoscopy, EGD Ortho: Other - Present Medications Home Medications: Ambulatory Orders Medication Instructions Recorded Confirmed No Known Home Medications 02/05/21 02/05/21 - Allergies Allergies/Adverse Reactions: Allergies Allergy/AdvReac Type Severity Reaction Status Date / Time haloperidol [From Haldol] Allergy Severe Anxiety Verified 12/14/20 13:08 ketorolac [From Toradol] AdvReac Anxiety Verified 12/13/20 16:26 - Social History Does the pt smoke?: Yes Smoking Status: Current every day smoker Does the pt drink ETOH?: Yes Does the pt have substance abuse?: Yes - Immunizations Immunizations are current?: Yes Immunizations: Other immun not current - POLST Patient has POLST: No POLST Status: Full Code PD ED PE NORMAL - Vitals Vital signs reviewed: Yes - General General: Alert and oriented X 3, No acute distress - HEENT HEENT: PERRL, EOMI - Neck Neck: Supple, no meningeal sign, No bony TTP - Cardiac Cardiac: RRR, No murmur - Respiratory Respiratory: No respiratory distress, Clear bilaterally - Abdomen Abdomen: Normal bowel sounds, Soft, Non tender - Back Back: No CVA TTP, No spinal TTP - Derm Derm: Normal color, Warm and dry - Extremities Extremities: No edema, No calf tenderness / cord - Neuro Neuro: Alert and oriented X 3, Normal speech Results - Vitals Vitals: Vital Signs - 24 hr 02/05/21 02/05/21 02/05/21 08:13 08:30 09:45 Temperature 97.3 C H Heart Rate 94 117 H 90 Respiratory 18 16 16 Rate Blood Pressure 189/140 H 85/39 L 203/138 H O2 Saturation 94 98 95 02/05/21 02/05/21 10:00 10:30 Temperature Heart Rate 85 84 Respiratory 16 16 Rate Blood Pressure 207/141 H 206/141 H O2 Saturation 96 96 Oxygen O2 Source Room air - Labs Labs: Laboratory Tests 02/05/21 02/05/21 08:25 08:25 WBC 6.8 RBC 6.69 H Hgb 19.3 H Hct 57.0 H MCV 85.2 MCH 28.8 MCHC 33.9 RDW 15.5 H Plt Count 317 MPV 9.8 Neut # (Auto) 4.8 Lymph # (Auto) 1.3 L [place] # (Auto) 0.8 Eos # (Auto) 0.0 Baso # (Auto) 0.0 Absolute Nucleated RBC 0.00 Nucleated RBC % 0.0 Sodium 133 L Potassium 3.5 Chloride 87 L Carbon Dioxide 29 Anion Gap 17.0 H BUN 45 H Creatinine 2.8 H Estimated GFR (MDRD) 31 L Glucose 177 H Calcium 10.1 Total Bilirubin 1.4 H AST 43 H ALT 33 Alkaline Phosphatase 102 Total Protein 9.8 H Albumin 5.6 H Globulin 4.2 Albumin/Globulin Ratio 1.3 Lipase 52 H PD MEDICAL DECISION MAKING - ED course ED course: 40-year-old gentleman with cannabinoid hyperemesis presents with an exacerbation of same. Found to be significantly dehydrated with acute kidney injury with BUN of 45 and creatinine of 2.8. His baseline creatinine is usually about 1.1. Treated stepwise with medications here but given his acute renal failure will be placed in observation for continued IV fluid therapy and spoke with Dr. Levine for same at approximately 10:25 AM. Departure - Departure Disposition: ED Place in Observation Clinical Impression: Cannabis hyperemesis syndrome concurrent with and due to cannabis abuse ARF (acute renal failure) Qualifiers: Acute renal failure type: unspecified Qualified Code(s): N17.9 - Acute kidney failure, unspecified Condition: Serious Discharge Date/Time: 02/05/21 11:40
[2021-02-05 08:45] LABS: BASOPHILS % (AUTO) 0.6 %; EOSINOPHILS % (AUTO) 0.3 %; HGB - HEMOGLOBIN 19.3 g/dL (14.0-18.0); LYMPHOCYTES # (AUTO) 1.3 10^3/uL (1.5-3.5); LYMPHOCYTES % (AUTO) 18.3 %; MEAN CORPUSCULAR HEMOGLOBIN 28.8 pg (27.0-31.0); MEAN CORPUSCULAR HGB CONC 33.9 g/dL (32.0-36.0); MEAN CORPUSCULAR VOLUME 85.2 fL (80.0-94.0); MEAN PLATELET VOLUME 9.8 fL (7.4-11.4); MONOCYTES # (AUTO) 0.8 10^3/uL (0.0-1.0); NEUTROPHILS # (AUTO) 4.8 10^3/uL (1.5-6.6); NEUTROPHILS % (AUTO) 69.7 %; PLT - PLATELET COUNT 317 10^3/uL (130-450); RED BLOOD COUNT 6.69 10^6/uL (4.70-6.10); RED CELL DISTRIBUTION WIDTH 15.5 % (12.0-15.0); WHITE BLOOD COUNT 6.8 x10^3/uL (4.8-10.8)
[2021-02-05] MEDS ORDERED: SODIUM CHLORIDE 0.9% 1,000 ML IV STA ×2 (08:58)
[2021-02-05 10:11] LABS: ALBUMIN 5.6 g/dL (3.2-5.5); ALBUMIN/GLOBULIN RATIO 1.3 (1.0-2.2); BILIRUBIN,TOTAL 1.4 mg/dL (0.2-1.0); CREATININE 2.8 mg/dL (0.6-1.2)
[2021-02-05 10:21] LABS: CALCIUM 10.1 mg/dL (8.5-10.3); POTASSIUM 3.5 mmol/L (3.5-5.0); TOTAL PROTEIN 9.8 g/dL (6.7-8.2)
[2021-02-05] MEDS ORDERED: oxyCODONE 5 MG TABLET PO PRN (10:38)
--- NOTE | 2021-02-05 10:46 | HISTORY & PHYSICAL EXAMINATION ---
Chief Complaint - Chief Complaint Chief Complaint: N/V/A History of Present Illness - Admitted From Admitted From:: medical floor - History Obtained From Records Reviewed: [facility] History obtained from: Pt Exam Limitations: no - History of Present Illness HPI Comment/Other: This is a 40-year-old -Congolese gentleman who has had intermittent left upper quadrant abdominal pain since approximately 2007. pt was diagnosed with pancreatitis from alcohol in previous. He has not drank since 2016. Then his lipase was significantly trended down. Pt continue smoking Marijuana. Patient had multiple admissions of nausea, vomiting and abdominal pain. All of these admissions have been for intractable nausea and vomiting with left upper quadrant abdominal pain. pt had multiple CT scans of the abdomen and ultrasound of the abdomen, pt had EGD, colonoscopy and MRCP done either at this hospital or [facility] or other hospital as well. None of these studies have delineated why this gentleman has intractable nausea and vomiting with left upper quadrant abdominal pain, nor has it delineated any anatomical abnormalities, except pt continue smoke Marijuana. At this time pt presented in the ER nausea, vomiting, left upper quadrant abdominal pain as he usually complain, since early this morning. pt States he has been abdominal pain with nausea and vomiting for 4 days then he reduced to drink of water. Routine laboratory tests do show patient had creatinine 2.8, BUN 45, anion gap 17. Patient denies chest pain, fever, chill, shortness of breath. Medical team was called for admission for patient's intractable nausea, vomiting, abdominal pain. Discussed the care goal with the patient, patient hopes to have full code History - Past Medical History Cardiovascular: reports: Hypertension Respiratory: reports: None Neuro: reports: None Endocrine/Autoimmune: reports: None GI: reports: GERD, Ulcers, Pancreatitis : reports: None HEENT: reports: None Psych: reports: Depression, Anxiety, Panic attacks, Other Musculoskeletal: reports: None Derm: reports: None MRSA Hx?: No - Past Surgical History General: reports: Colonoscopy, EGD Ortho: reports: Other - Family & Social History Family History: Mother: Alive and Well, Hypertension, Father: Alive and Well, Hypertension, Renal Disease/Failure, Other family: Mental Illness Family History Comment/Other: He denies any significant family history but review of prior records reveal that his mother and father both have hy pertension. His mother also has a history of aortic dissection with aneurysm in her 50s. He also has of brother with a history of bicuspid aortic valve who also had an aneurysm in his 20s. His father also has renal disease. Living Situation: With family Social History Notes: He lives at home with his parents. He currently works in [employer]. He smokes a pack a day and has been doing so for about 20 years. He reports history of marijuana use and prior records reveals his daily use but he states he last use about 1 week ago. He denies a history of heroin, cocaine, methamphetamine use. - Substance History Use: Uses substance without health or social issues: Cannabis, Tobacco - POLST Patient has POLST: No POLST Status: Full Code Meds/Allgy - Home Medications Home Medications: Ambulatory Orders Medication Instructions Recorded Confirmed No Known Home Medications 02/05/21 02/05/21 - Allergies Allergies/Adverse Reactions: Allergies Allergy/AdvReac Type Severity Reaction Status Date / Time haloperidol [From Haldol] Allergy Severe Anxiety Verified 12/14/20 13:08 ketorolac [From Toradol] AdvReac Anxiety Verified 12/13/20 16:26 Review of Systems - Constitutional Constitutional: denies: Fever, Chills - Eyes Eyes: denies: Pain, Field loss, Vision loss - Ears, Nose & Throat Ears, Nose & Throat: denies: Ear pain, Nosebleeds, Bleeding gums - Cardiovascular Cariovascular: denies: Irregular heart rate, Chest pain, Syncope, Exertional dyspnea, Decr. exercise tolerance - Respiratory Respiratory: denies: Cough, Sputum production, Wheezing, SOB at rest, SOB with exertion - Gastrointestinal Gastrointestinal: reports: Abdominal pain, Nausea, Vomiting. denies: Diarrhea, Rectal bleeding - Genitourinary Genitourinary: denies: Dysuria, Urgency - Musculoskeletal Musculoskeletal: denies: Muscle pain - Integumentary Integumentary: denies: Rash - Neurological Neurological: denies: Focal weakness, Numbness, Abnormal gait, Seizures, Incoordination, Slurred speech - Psychiatric Psychiatric: denies: Depression, Suicidal - Endocrine Endocrine: denies: Polyuria - Hematologic/Lymphatic Hematologic/Lymphatic: denies: Anemia Exam - Vital Signs Vital Signs: Vital Signs x48h Temp Pulse Resp BP Pulse Ox 02/05/21 09:45 90 16 203/138 H 95 02/05/21 08:30 117 H 16 85/39 L 98 02/05/21 08:13 97.3 C H 94 18 189/140 H 94 - Physical Exam General Appearance: positive: Alert, Mild distress. negative: Lethargic Eyes Bilateral: positive: Normal inspection, PERRL, No lid inflammation ENT: positive: ENT inspection nml, No signs of dehydration. negative: Purulent nasal drainage Neck: positive: Nml inspection, Trachea midline. negative: Thyromegaly, Tracheal deviation Respiratory: positive: Chest non-tender, No respiratory distress. negative: Wheezes Cardiovascular: positive: Regular rate & rhythm, No murmur. negative: Tachycardia, Bradycardia, Systolic murmur, Diastolic murmur Peripheral Pulses: positive: 2+ Abdomen: positive: Non-tender, Nml bowel sounds, No distention Back: positive: Nml inspection Skin: positive: Color nml, Warm, Dry. negative: Cyanosis Extremities: positive: Non-tender, Full ROM, Nml appearance. negative: Calf tenderness Neurologic/Psychiatric: positive: Oriented x3, Motor nml, Sensation nml. negative: Weakness, Sensory loss, Facial droop, Slurred/abnml speech Conclusion/Plan - Problem List (1) Intractable nausea and vomiting Conclusion/Plan: Patient was admitted many times for intractable nausea and vomiting. Patient has hx of smoke marijuana. It is more likely cannabinoid hyperemesis syndrome. We are waiting for urine drug screening. We will have antiemesis as needed, intravenous IV fluids, bowel rest with clear diet, Advance diet as tolerated (2) Intractable abdominal pain Conclusion/Plan: Patient had multiple time admission for intractable abdominal pain. Patient had EGD, colonoscopy, ultrasound of her abdomen, multiple time of CT of the abdomen, MRCP, Which all show Unexplained for patient intractable abdominal pain. We will give patient bowel rest with clear liquid diet, pain control, intravenous IV fluids, protonic and GI cockit as needed. (3) LAZARO Conclusion/Plan: creatinine is 2.8 and BUN 45, pt report he reduced to drink of water. it is likely hypovolumia and dehydration to cause the damage. IVF, and lab monitor (4) HTN (hypertension) Conclusion/Plan: Patient had elevated blood pressure in the ER and in the medical floor, we will give patient hydralazine as needed, Vital signs monitor - Lab Results Fish Bones: 02/05/21 08:25 02/05/21 08:25 Core Measures - Anticipated LOS I expect patient to be DC'd or transferred within 96 hours.: Yes - DVT/VTE - Prophylaxis VTE/DVT Device ordered at admit?: Yes VTE/DVT Prophylaxis med ordered at admit?: Yes
[2021-02-05] MEDS ORDERED: SODIUM CHLORIDE 0.9% 1,000 ML IV SCH (11:00)
[2021-02-05] MEDS: ONDANSETRON 4 MG/2 ML VIAL IVP PRN ×2 (11:59→17:57)
[2021-02-05] MEDS: SODIUM CHLORIDE FLUSH 0.9% 10 ML SYRINGE IVP PRN (11:59)
[2021-02-05] MEDS ORDERED: MORPHINE 2 MG/ML CARPUJECT IVP PRN (12:07)
[2021-02-05] MEDS ORDERED: hydrALAZINE INJ 20 MG/ML VIAL IVP PRN (12:30)
[2021-02-05] MEDS: SODIUM CHLORIDE 0.9% 1,000 ML IV SCH ×2 (12:42→18:32)
[2021-02-05] MEDS ORDERED: GI COCKTAIL 120 ML BOTTLE PO PRN (12:42)
[2021-02-05 13:16] LABS: B. PARAPERTUSSIS- RESP PCR PAN NOT DETECTED; B. PERTUSSIS- RESP PCR PANEL NOT DETECTED; C. PNEUMONIAE- RESP PCR PANEL NOT DETECTED; CORONAVIRUS 229E-RESP PCR NOT DETECTED; CORONAVIRUS HKU1-RESP PCR NOT DETECTED; CORONAVIRUS NL63-RESP PCR NOT DETECTED; CORONAVIRUS OC43-RESP PCR NOT DETECTED; HUMAN METAPNEUMOVIRUS NOT DETECTED; INFLUENZA A- RESP PCR PANEL NOT DETECTED; INFLUENZA B - RESP PCR PANEL NOT DETECTED; M. PNEUMONIAE- RESP PCR PANEL NOT DETECTED; PARAINFLUENZA VIRUS 1 NOT DETECTED; PARAINFLUENZA VIRUS 2 NOT DETECTED; PARAINFLUENZA VIRUS 3 NOT DETECTED; PARAINFLUENZA VIRUS 4 NOT DETECTED; RHINOVIRUS/ENTEROVIRUS NOT DETECTED; RSV- RESP PCR PANEL NOT DETECTED; SARS-CoV-2 -RESP PCR PANEL NOT DETECTED
[2021-02-05] MEDS: PANTOPRAZOLE 40 MG TABLET PO SCH (13:56)
[2021-02-05] MEDS: ACETAMINOPHEN 325 MG TABLET PO PRN (13:56)
[2021-02-05] MEDS: PROCHLORPERAZINE 10 MG/2 ML VIAL IVP PRN ×2 (13:56→21:43)
[2021-02-05] MEDS: hydrALAZINE INJ 20 MG/ML VIAL IVP PRN (13:57)
[2021-02-05] MEDS: MORPHINE 2 MG/ML CARPUJECT IVP PRN ×2 (17:22→21:43)
[2021-02-05] MEDS: SODIUM CHLORIDE FLUSH 0.9% 10 ML SYRINGE IVP SCH (17:37)
[2021-02-05 20:17] LABS: ALBUMIN/GLOBULIN RATIO 1.4 (1.0-2.2); BILIRUBIN,TOTAL 1.3 mg/dL (0.2-1.0); CALCIUM 9.1 mg/dL (8.5-10.3); CREATININE 1.8 mg/dL (0.6-1.2); TOTAL PROTEIN 8.5 g/dL (6.7-8.2)
[2021-02-05 20:45] LABS: MUDS CUTOFF CONCENTRATIONS CUTOFF CONC BELOW:
[2021-02-05 20:57] LABS: COCAINE SCREEN URINE NEGATIVE (NEGATIVE); THC CANNABINOID SCREEN, URINE POSITIVE (NEGATIVE)
[2021-02-05 20:58] LABS: AMPHETAMINE SCREEN,URINE NEGATIVE (NEGATIVE); BARBITURATE SCREEN,UR NEGATIVE (NEGATIVE); BENZODIAZEPINES SCREEN, URINE NEGATIVE (NEGATIVE); METHADONE SCREEN, URINE NEGATIVE (NEGATIVE); METHAMPHETAMINES SCREEN, URINE NEGATIVE (NEGATIVE); OPIATE SCREEN, URINE POSITIVE (NEGATIVE); OXYCODONE SCREEN, URINE NEGATIVE (NEGATIVE); PROPOXYPHENE SCREEN, URINE NEGATIVE (NEGATIVE); TRICYCLIC ANTIDEPRESSANT,URINE NEGATIVE (NEGATIVE)
[2021-02-05] MEDS: HEPARIN 5,000 UNIT/ML VIAL SUBQ SCH (21:18)
[2021-02-06] MEDS: SODIUM CHLORIDE 0.9% 1,000 ML IV SCH ×4 (00:01→11:49)
[2021-02-06] MEDS: SODIUM CHLORIDE FLUSH 0.9% 10 ML SYRINGE IVP SCH ×2 (00:02→08:25)
[2021-02-06] MEDS: PANTOPRAZOLE 40 MG TABLET PO SCH (06:05)
[2021-02-06] MEDS: MORPHINE 2 MG/ML CARPUJECT IVP PRN (06:19)
[2021-02-06] MEDS: ONDANSETRON 4 MG/2 ML VIAL IVP PRN (06:19)
[2021-02-06] MEDS: SODIUM CHLORIDE FLUSH 0.9% 10 ML SYRINGE IVP PRN (06:30)
[2021-02-06 06:33] LABS: BASOPHILS % (AUTO) 0.2 %; EOSINOPHILS % (AUTO) 0.2 %; HCT - HEMATOCRIT 45.5 % (42.0-52.0); HGB - HEMOGLOBIN 14.8 g/dL (14.0-18.0); LYMPHOCYTES % (AUTO) 15.9 %; MEAN CORPUSCULAR HEMOGLOBIN 28.5 pg (27.0-31.0); MEAN CORPUSCULAR HGB CONC 32.5 g/dL (32.0-36.0); MEAN CORPUSCULAR VOLUME 87.7 fL (80.0-94.0); MEAN PLATELET VOLUME 9.9 fL (7.4-11.4); NEUTROPHILS % (AUTO) 70.2 %; PLT - PLATELET COUNT 252 10^3/uL (130-450); RED BLOOD COUNT 5.19 10^6/uL (4.70-6.10); RED CELL DISTRIBUTION WIDTH 14.6 % (12.0-15.0); WHITE BLOOD COUNT 12.2 x10^3/uL (4.8-10.8)
[2021-02-06 06:35] LABS: ABNORMAL LYMPHS % (MANUAL) 0 %; BAND NEUTROPHILS % (MANUAL) 0 %
[2021-02-06 06:47] LABS: ALBUMIN 3.8 g/dL (3.2-5.5); ALBUMIN/GLOBULIN RATIO 1.5 (1.0-2.2); BILIRUBIN,TOTAL 1.3 mg/dL (0.2-1.0); CALCIUM 8.7 mg/dL (8.5-10.3); CREATININE 1.2 mg/dL (0.6-1.2); POTASSIUM 3.2 mmol/L (3.5-5.0); TOTAL PROTEIN 6.4 g/dL (6.7-8.2)
[2021-02-06 07:32] LABS: BASOPHILS # (MANUAL) 0.1 10^3/uL (0-0.1); BASOPHILS % (MANUAL) 1 %; LYMPHOCYTES # (MANUAL) 1.5 10^3/uL (1.5-3.5); LYMPHOCYTES % (MANUAL) 12 %; NEUTROPHILS # (MANUAL) 8.7 10^3/uL (1.5-6.6)
[2021-02-06 07:33] LABS: DIFFERENTIAL COMMENT MANUAL DIFFERENTIAL; PLATELET ESTIMATE, MANUAL NORMAL (130-450,000) (NORMAL); PLATELET MORPHOLOGY NORMAL APPEARANCE (NORMAL); RBC MORPHOLOGY (MULTIPLE) NORMAL APPEARANCE (NORMAL); WBC MORPHOLOGY (MULTIPLE) NORMAL APPEARANCE (NORMAL)
[2021-02-06] MEDS ORDERED: POTASSIUM CHLORIDE 20 MEQ TABLET PO ONE (08:00)
[2021-02-06] MEDS: HEPARIN 5,000 UNIT/ML VIAL SUBQ SCH (08:22)
[2021-02-06] MEDS: PROCHLORPERAZINE 10 MG/2 ML VIAL IVP PRN (08:44)
[2021-02-06] MEDS: hydrALAZINE INJ 20 MG/ML VIAL IVP PRN (09:11)
[2021-02-06] MEDS ORDERED: MORPHINE 2 MG/ML CARPUJECT IVP PRN (12:00)
[2021-02-06 12:34] LABS: BILIRUBIN,URINE NEGATIVE (NEGATIVE); GLUCOSE, URINE (UA) NEGATIVE (NEGATIVE); KETONES,URINE (UA) NEGATIVE (NEGATIVE); LEUKOCYTE ESTERASE, URINE NEGATIVE (NEGATIVE); NITRITE,URINE NEGATIVE (NEGATIVE); OCCULT BLOOD,URINE NEGATIVE (NEGATIVE); PROTEIN,URINE TRACE mg/dL (NEGATIVE); UROBILINOGEN,URINE 0.2 (NORMAL) E.U./dL (NORMAL)
[2021-02-06 12:35] LABS: CLARITY,URINE CLEAR (CLEAR)
[2021-02-06 13:33] LABS: BACTERIA,URINE None Seen /HPF (None Seen); RBC,URINE None Seen /HPF (0-5); SQUAMOUS EPITHELIAL CELL,UR NONE SEEN (<= Few); WBC,URINE 0-3 /HPF (0-3)
--- NOTE | 2021-02-06 14:17 | Discharge Plan ---
Discharge Plan Problem Reviewed?: Yes Disposition: Home, Self Care Condition: Stable Diet: Regular Activity Restrictions: Activity as Tolerated Shower Restrictions: No (fall precaution) Instruction Topics: Nausea Vomit Control, Addiction Marijuana Signs, Abuse Marijuana, Dehydration Health Concerns: dehydration, cannabinoid hyperemesis syndrome Plan of Treatment: You are found to have severe dehydration at the admission. you agree to drink fluid and keep hydration at home. you are found to have cannabinoid hyperemesis syndrome, you agree to reduce and finally quit smoking of Marijuana. Care Goals: Stabilization and improvement/Resolved of your medical condition Assessment: Discussed the care plan with you, you understood. Additional Instructions or Follow Up instructions: You may follow-up with your PCP in 1 to 2 weeks. Should your symptoms return or worsen, you may present to ER or call 911 for help No Smoking: If you smoke, Please STOP! Call for help.
--- NOTE | 2021-02-06 14:24 | DISCHARGE SUMMARY ---
Discharge Summary Admit Date: 02/05/21 Discharge Date: 02/06/21 Discharging Provider: Kane Reyez Primary Care Provider: Arnie Oliver Condition at Discharge: Stable Discharge Disposition: 01 Home, Self Care Discharge Facility Name: home - DIAGNOSES Discharge Diagnoses with Status of Each Condition: (1) Intractable nausea and vomiting resolved. pt tolerated diet without nausea or vomiting. It is more likely caused by cannabinoid hyperemesis syndrome. urine scan still show pt is positive for cannabinoid. discussed with pt to see if pt can quit cannabinoid, likely it will not happen. (2) Intractable abdominal pain resolved. pt tolerated diet without nausea or vomiting. It is more likely caused by cannabinoid hyperemesis syndrome. (3) LAZARO creatinine return to pt's baseline. strongly encourage pt keep hydration at home. pt verbally state he will. (4) HTN (hypertension) pt has no blood medication at home. pt's blood pressure has hx of altering very quick at even very little distress from normal arrange to significantly high, then his blood pressure return to normal arrange again. pt is asymptomatic for his variation of blood pressure. he denies headache, chest pain. pt was given 200-150 cc/h IVF for his LAZARO which can cause his BP higher than normal arrange. pt understood his history of this condition. He would like to followup with his PCP to manage, no further intervention in the hospital. - HPI History of Present Illness: This is a 40-year-old -N[place]alese gentleman who has had intermittent left upper quadrant abdominal pain since approximately 2007. pt was diagnosed with pancreatitis from alcohol in previous. He has not drank since 2016. Then his lipase was significantly trended down. Pt continue smoking Marijuana. Patient had multiple admissions of nausea, vomiting and abdominal pain. All of these admissions have been for intractable nausea and vomiting with left upper q uadrant abdominal pain. pt had multiple CT scans of the abdomen and ultrasound of the abdomen, pt had EGD, colonoscopy and MRCP done either at this hospital or [facility] or other hospital as well. None of these studies have delineated why this gentleman has intractable nausea and vomiting with left upper quadrant abdominal pain, nor has it delineated any anatomical abnormalities, except pt c maxx smoke Marijuana. At this time pt presented in the ER nausea, vomiting, left upper quadrant abdominal pain as he usually complain, since early this morning. pt States he has been abdominal pain with nausea and vomiting for 4 days then he reduced to drink of water. Routine laboratory tests do show patient had creatinine 2.8, BUN 45, anion gap 17. Patient denies chest pain, fever, chill, shortness of breath. Medical team was called for admission for patient's intractable nausea, vomiting, abdominal pain. Discussed the care goal with the patient, patient hopes to have full code - ALLERGIES Allergies/Adverse Reactions: Allergies Allergy/AdvReac Type Severity Reaction Status Date / Time haloperidol [From Haldol] Allergy Severe Anxiety Verified 12/14/20 13:08 ketorolac [From Toradol] AdvReac Anxiety Verified 12/13/20 16:26 - MEDICATIONS Home Medications: Ambulatory Orders Medication Instructions Recorded Confirmed No Known Home Medications 02/05/21 02/05/21 - PHYSICAL EXAM AT DISCHARGE General Appearance: positive: No acute distress, Alert. negative: Lethargic Eyes Bilateral: positive: Normal inspection, PERRL, No lid inflammation ENT: positive: ENT inspection nml, No signs of dehydration. negative: Purulent nasal drainage Neck: positive: Nml inspection, Trachea midline. negative: Thyromegaly, Tracheal deviation Respiratory: positive: Chest non-tender, No respiratory distress. negative: Wheezes, Rales Cardiovascular: positive: Regular rate & rhythm, No murmur. negative: Tachycardia, Bradycardia, Systolic murmur, Diastolic murmur Peripheral Pulses: positive: 2+ Abdomen: positive: Non-tender, No organomegaly, Nml bowel sounds, No distention. negative: Tenderness, Guarding Back: positive: Nml inspection Skin: positive: Color nml, Warm, Dry. negative: Cyanosis Extremities: positive: Non-tender, Full ROM, Nml appearance. negative: Calf tenderness Neurologic/Psychiatric: positive: Oriented x3, Motor nml, Sensation nml, Mood/affect nml. negative: Weakness, Sensory loss, Facial droop, Slurred/abnml speech - LABS Result Diagrams: 02/06/21 05:41 02/06/21 05:41 - FOLLOW UP Follow Up: You are found to have severe dehydration at the admission. you agree to drink fluid and keep hydration at home. you are found to have cannabinoid hyperemesis syndrome, you agree to reduce and finally quit smoking of Marijuana. You may follow-up with your PCP in 1 to 2 weeks. Should your symptoms return or worsen, you may present to ER or call 911 for help - TIME SPENT Time Spent in Discharge (Minutes): 30
[2021-02-06] MEDS: ACETAMINOPHEN 325 MG TABLET PO PRN (16:02)
[2021-02-06 16:10] VITALS: BP 185/111
== END 2021-02-06 17:03 | disposition home or self-care (01) ==
LOC: EDUNIT# → ED 08:08 → MS3 10:38
PROVIDERS: ADMIT Nurse Practitioner Gerontology; ATTEND Nurse Practitioner Gerontology
DX: R11.2 Nausea with vomiting, unspecified (principal); N17.9 Acute kidney failure, unspecified; E86.0 Dehydration; R10.812 Left upper quadrant abdominal tenderness; I10 Essential (primary) hypertension; F32.9 Major depressive disorder, single episode, unspecified; F41.9 Anxiety disorder, unspecified; F41.0 Panic disorder [episodic paroxysmal anxiety]; F17.210 Nicotine dependence, cigarettes, uncomplicated; Z20.822 Contact with and (suspected) exposure to COVID-19; Z87.19 Personal history of other diseases of the digestive system; Z72.89 Other problems related to lifestyle; Z82.49 Family history of ischemic heart disease and other diseases of the circulatory system; Z81.8 Family history of other mental and behavioral disorders
CPT/HCPCS: 0202U; 36415; 80053; 80306; 81001; 83690; 85025; 96361; 96372; 96374; 96375; 96376; 99285; A9270; G0378; 87086

== ENCOUNTER 2021-03-27 10:22 | Emergency (ER) | payer MEDICAID ==
[2021-03-27 10:50] VITALS: BP 151/101
== END 2021-03-27 12:35 | disposition left against medical advice (07) ==
LOC: ED 10:22
DX: Z53.21 Procedure and treatment not carried out due to patient leaving prior to being seen by health care provider (principal)
CPT/HCPCS: 80053; 83690; 85025

== ENCOUNTER 2021-04-01 14:57 | Outpatient (CLI) | payer MEDICAID | END 2021-04-01 14:58 | disposition short-term general hospital (02) | LOC: EMS 14:57 | DX: R10.9 Unspecified abdominal pain (principal) | CPT/HCPCS: A0425; A0429 ==

== ENCOUNTER 2021-04-10 13:10 | Outpatient (CLI) | payer MEDICAID | END 2021-04-10 13:11 | disposition critical access hospital (66) | LOC: EMS 13:10 | DX: R10.9 Unspecified abdominal pain (principal) | CPT/HCPCS: A0425; A0429; A0999 ==

== ENCOUNTER 2021-04-10 13:29 | Emergency (ER) | payer MEDICAID ==
[2021-04-10] MEDS ORDERED: diphenhydrAMINE INJ 50 MG/ML VIAL IVP STA (13:33)
[2021-04-10] MEDS ORDERED: SODIUM CHLORIDE 0.9% 1,000 ML IV STA ×3 (13:33→15:14)
[2021-04-10] MEDS ORDERED: PROMETHAZINE INJ 12.5 MG in SODIUM CHLORIDE 0.9% 50 ML IV STA (13:36)
--- NOTE | 2021-04-10 13:58 | ED Physician Documentation ---
PD HPI ABD PAIN - Stated complaint Stated Complaint: SIDE PX - Chief complaint Chief Complaint: Abd Pain - History obtained from History obtained from: Patient - Additional information Additional information: This is a 40-year-old male with past medical history of cannabis hyperemesis syndrome who presents with left lower abdominal pain as well as vomiting. He states his symptoms have been present essentially every day for the last 4 months but he felt somewhat worse today so came into the ER. He has been admitted or seen here numerous times for similar symptoms and states he has had the same sx on and off for 20 years. He has been seen in the past by GI according to him and he had a endoscopy which he reports to me was normal. He states that "no one has found anything" And adamantly denies that this is related to cannabis use. He has not had a fever or chills, no cough or URI sx, no diarrhea or constipation, no urinary sx. He states he has lost weight and can't keep anything down. He continues to smoke marijuana and adamantly insists that his marijuana use is unrelated to his sx. He admits to occasional cocaine use because "you guys don't do anything to help me so I have to find my own ways to get relief" But denies any cocaine use in the Recent past. Review of Systems Constitutional: reports: Weight Loss. denies: Fever, Chills Eyes: reports: Reviewed and negative Ears: reports: Reviewed and negative Nose: reports: Reviewed and negative Throat: reports: Reviewed and negative Cardiac: reports: Reviewed and negative Respiratory: reports: Reviewed and negative GI: reports: Abdominal Pain, Nausea, Vomiting. denies: Abdominal Swelling, Constipation, Diarrhea, Hematemesis, Bloody / black stool : reports: Reviewed and negative Skin: reports: Reviewed and negative Musculoskeletal: reports: Reviewed and negative Neurologic: reports: Reviewed and negative Psychiatric: reports: Reviewed and negative Endocrine: reports: Weight loss Immunocompromised: reports: Reviewed and negative PD PAST MEDICAL HISTORY - Past Medical History Cardiovascular: Hypertension Respiratory: None Neuro: None Endocrine/Autoimmune: None GI: GERD, Ulcers, Pancreatitis : None HEENT: None Psych: Depression, Anxiety, Panic attacks, Other Musculoskeletal: None Derm: None - Past Surgical History Past Surgical History: No General: Colonoscopy, EGD Ortho: Other - Present Medications Home Medications: Ambulatory Orders Medication Instructions Recorded Confirmed Ondansetron Odt [Zofran] 4 mg TL Q6H PRN #10 tablet 04/10/21 Potassium Citrate [Potassium 10 meq PO BIDWM #10 04/10/21 Citrate ER] Promethazine [Phenergan] 25 mg PO Q6H PRN #10 tablet 04/10/21 - Allergies Allergies/Adverse Reactions: Allergies Allergy/AdvReac Type Severity Reaction Status Date / Time haloperidol [From Haldol] Allergy Severe Anxiety Verified 04/10/21 13:39 ketorolac [From Toradol] AdvReac Anxiety Verified 04/10/21 13:39 - Social History Does the pt smoke?: Yes Smoking Status: Current every day smoker Does the pt drink ETOH?: Yes Does the pt have substance abuse?: Yes - Immunizations Immunizations are current?: Yes Immunizations: Other immun not current - POLST Patient has POLST: No POLST Status: Full Code Results - Vitals Vitals: Vital Signs - 24 hr 04/10/21 04/10/21 04/10/21 13:35 14:17 16:07 Temperature 37.0 C Heart Rate 82 57 L 48 L Respiratory 16 20 18 Rate Blood Pressure 139/104 H 155/97 H 131/99 H O2 Saturation 96 100 97 04/10/21 18:11 Temperature Heart Rate 105 H Respiratory 20 Rate Blood Pressure 159/120 H O2 Saturation 100 Oxygen O2 Source Room air - Labs Labs: Laboratory Tests 04/10/21 04/10/21 04/10/21 14:02 14:02 16:01 WBC 5.5 RBC 6.62 H Hgb 18.5 H Hct 54.3 H MCV 82.0 MCH 27.9 MCHC 34.1 RDW 12.6 Plt Count 272 MPV 9.9 Neut # (Auto) 2.9 Lymph # (Auto) 1.9 [place] # (Auto) 0.6 Eos # (Auto) 0.1 Baso # (Auto) 0.0 Absolute Nucleated RBC 0.00 Nucleated RBC % 0.0 Sodium 139 141 Potassium 3.5 3.0 L Chloride 91 L 97 L Carbon Dioxide 29 31 Anion Gap 19.0 H 13.0 BUN 25 H 24 H Creatinine 1.6 H 1.3 H Estimated GFR (MDRD) 58 L 74 L Glucose 126 H 105 H Calcium 10.6 H 9.5 Total Bilirubin 0.8 AST 32 ALT 33 Alkaline Phosphatase 73 Total Protein 9.1 H Albumin 5.8 H Globulin 3.3 Albumin/Globulin Ratio 1.8 Lipase 45 PD MEDICAL DECISION MAKING - ED course Complexity details: reviewed old records, reviewed results, re-evaluated patient, considered differential, d/w patient ED course: This is a 40-year-old male who has a history of cannabis hyperemesis who presented with symptoms consistent with his cannabis hyperemesis exacerbations. The patient did have an elevated anion gap as well as LAZARO with A creatinine of 1.6, his other labs were relatively stable aside from potassium 3.0 on repeat BMP. He was given 40 mg of potassium orally. He was rehydrated with a total of 2 L of fluid, repeat kidney function improved though remained decreased from baseline. Patient is tolerating small amount of p.o., he did have one episode of dry heaving but no large-volume emesis. He refused to provide a urine sample. He strongly desired to go home though I did offer him potential admission initially for LAZARO. The patient declined and I do think he is stable to try outpatient treatment at this time given improved renal function w/ hydration. He was strongly strongly urged to stop using marijuana and to stay well-hydrated with small sips of fluid frequently to avoid decreased renal function. I have provided him with prescriptions for Zofran, promethazine and 5 days of low-dose potassium to help supplement. I reviewed supportive measures as well as return precautions. I encouraged the patient to follow-up with PCP in 1 to 2 weeks for repeat lab testing And possible GI referral. Departure - Departure Disposition: 01 Home, Self Care Clinical Impression: Cyclical vomiting syndrome, Cannabis hyperemesis syndrome concurrent with and due to cannabis abuse, Acute kidney injury, Hypokalemia due to excessive gastrointestinal loss of potassium Condition: Good Instructions: Diet Clear Liquid Dc Prescriptions: Promethazine [Phenergan] 25 mg PO Q6H PRN #10 tablet PRN Reason: Nausea / Vomiting Potassium Citrate [Potassium Citrate ER] 10 meq PO BIDWM #10 Ondansetron Odt [Zofran] 4 mg TL Q6H PRN #10 tablet PRN Reason: Nausea / Vomiting Comments: You presented with abdominal cramping and vomiting similar to prior episodes of cannabis hyperemesis syndrome. As we have discussed in the past it is really important for you to try to stop Using marijuana Because that is likely contributing to your symptoms. You have become dehydrated with acute kidney injury due to poor p.o. intake. This improved with IV hydration and you are now tolerating Some Oral fluids so I feel it is reasonable to try to discharge you home but it is important for you to continue Oral hydration. You can take nausea pills as needed to help with your symptoms. I would like you to be seen in the next 1 to 2 weeks to recheck your labs. If you feel like you are getting worse, you are not able to tolerate oral fluids or keep things down, then you should return to the ER for hydration. Discharge Date/Time: 04/10/21 18:37
[2021-04-10 14:08] LABS: BASOPHILS % (AUTO) 0.7 %; EOSINOPHILS # (AUTO) 0.1 10^3/uL (0.0-0.7); EOSINOPHILS % (AUTO) 1.1 %; HCT - HEMATOCRIT 54.3 % (42.0-52.0); HGB - HEMOGLOBIN 18.5 g/dL (14.0-18.0); LYMPHOCYTES # (AUTO) 1.9 10^3/uL (1.5-3.5); MEAN CORPUSCULAR HEMOGLOBIN 27.9 pg (27.0-31.0); MEAN CORPUSCULAR HGB CONC 34.1 g/dL (32.0-36.0); MEAN PLATELET VOLUME 9.9 fL (7.4-11.4); MONOCYTES # (AUTO) 0.6 10^3/uL (0.0-1.0); MONOCYTES % (AUTO) 10.5 %; NEUTROPHILS # (AUTO) 2.9 10^3/uL (1.5-6.6); NEUTROPHILS % (AUTO) 53.5 %; PLT - PLATELET COUNT 272 10^3/uL (130-450); RED BLOOD COUNT 6.62 10^6/uL (4.70-6.10); RED CELL DISTRIBUTION WIDTH 12.6 % (12.0-15.0); WHITE BLOOD COUNT 5.5 x10^3/uL (4.8-10.8)
[2021-04-10 14:22] LABS: ALBUMIN 5.8 g/dL (3.2-5.5); ALBUMIN/GLOBULIN RATIO 1.8 (1.0-2.2); BILIRUBIN,TOTAL 0.8 mg/dL (0.2-1.0); CALCIUM 10.6 mg/dL (8.5-10.3); CREATININE 1.6 mg/dL (0.6-1.2); POTASSIUM 3.5 mmol/L (3.5-5.0); TOTAL PROTEIN 9.1 g/dL (6.7-8.2)
[2021-04-10 16:18] LABS: CALCIUM 9.5 mg/dL (8.5-10.3); CREATININE 1.3 mg/dL (0.6-1.2)
[2021-04-10] MEDS ORDERED: POTASSIUM CHLORIDE 20 MEQ TABLET PO STA (16:41)
[2021-04-10] MEDS ORDERED: PROMETHAZINE INJ 25 MG in SODIUM CHLORIDE 0.9% 50 ML IV STA (17:25)
[2021-04-10] MEDS ORDERED: PROCHLORPERAZINE 10 MG/2 ML VIAL IVP STA (17:26)
[2021-04-10 18:11] VITALS: BP 159/120
== END 2021-04-10 18:37 | disposition home or self-care (01) ==
LOC: EDUNIT# → ED 13:29
DX: R11.15 Cyclical vomiting syndrome unrelated to migraine (principal); R11.2 Nausea with vomiting, unspecified; F12.188 Cannabis abuse with other cannabis-induced disorder; E86.0 Dehydration; N17.9 Acute kidney failure, unspecified; E87.6 Hypokalemia; I10 Essential (primary) hypertension; F17.200 Nicotine dependence, unspecified, uncomplicated
CPT/HCPCS: 36415; 80048; 80053; 83690; 85025; 96361; 96365; 96375; 99284; A9270; J1200; J7040

== ENCOUNTER 2021-10-03 01:35 | Outpatient (CLI) | payer MEDICAID | END 2021-10-03 01:36 | disposition critical access hospital (66) | LOC: EMS 01:35 | DX: R10.12 Left upper quadrant pain (principal); R10.32 Left lower quadrant pain; R11.2 Nausea with vomiting, unspecified | CPT/HCPCS: A0425; A0427; A0999 ==

== ENCOUNTER 2021-10-03 02:03 | Emergency (ER) | payer MEDICAID ==
[2021-10-03 02:37] LABS: BASOPHILS % (AUTO) 0.7 %; EOSINOPHILS # (AUTO) 0.1 10^3/uL (0.0-0.7); EOSINOPHILS % (AUTO) 1.8 %; HCT - HEMATOCRIT 42.5 % (42.0-52.0); HGB - HEMOGLOBIN 14.2 g/dL (14.0-18.0); LYMPHOCYTES % (AUTO) 17.1 %; MEAN CORPUSCULAR HGB CONC 33.4 g/dL (32.0-36.0); MEAN CORPUSCULAR VOLUME 83.8 fL (80.0-94.0); MEAN PLATELET VOLUME 9.3 fL (7.4-11.4); MONOCYTES # (AUTO) 0.5 10^3/uL (0.0-1.0); MONOCYTES % (AUTO) 7.6 %; NEUTROPHILS # (AUTO) 4.3 10^3/uL (1.5-6.6); NEUTROPHILS % (AUTO) 72.5 %; PLT - PLATELET COUNT 270 10^3/uL (130-450); RED BLOOD COUNT 5.07 10^6/uL (4.70-6.10); RED CELL DISTRIBUTION WIDTH 14.4 % (12.0-15.0)
[2021-10-03 02:47] LABS: ALBUMIN 4.5 g/dL (3.2-5.5); ALBUMIN/GLOBULIN RATIO 1.5 (1.0-2.2); BILIRUBIN,TOTAL 0.4 mg/dL (0.2-1.0); POTASSIUM 3.6 mmol/L (3.5-5.0); TOTAL PROTEIN 7.5 g/dL (6.7-8.2)
--- NOTE | 2021-10-03 04:57 | ED Physician Documentation ---
PD HPI ABD PAIN - Stated complaint Stated Complaint: ABD PAIN, N/V - Chief complaint Chief Complaint: Abd Pain - History obtained from History obtained from: Patient - History of Present Illness Timing - onset: Enter time (10:00), Yesterday Timing - details: Abrupt onset Pain level now: 5 Quality: Pain Location: All over / everywhere Improved by: Other (nothing) Worsened by: Other (no ameliorating factors) Associated symptoms: Nausea, Vomiting. No: Fever, Diarrhea - Additional information Additional information: BIBA for abdominal pain, nausea and vomiting. Symptoms began 10 AM yesterday. He has long h/o [facility] ED visits for similar c/o (over 80 [facility] ED visits over past 5 years). He says he has neither pain medication nor antinausea medication at home. Review of Systems Constitutional: reports: Reviewed and negative Cardiac: reports: Reviewed and negative Respiratory: reports: Reviewed and negative GI: reports: Abdominal Pain, Nausea, Vomiting. denies: Diarrhea : denies: Dysuria, Frequency PD PAST MEDICAL HISTORY - Past Medical History Past Medical History: Yes Cardiovascular: Hypertension Respiratory: None Neuro: None Endocrine/Autoimmune: None GI: GERD, Ulcers, Pancreatitis : None HEENT: None Psych: Depression, Anxiety, Panic attacks, Other Musculoskeletal: None Derm: None - Past Surgical History Past Surgical History: Yes General: Colonoscopy, EGD Ortho: Other - Present Medications Home Medications: Ambulatory Orders Medication Instructions Recorded Confirmed Ondansetron Odt [Zofran] 4 mg TL Q6H PRN #14 tablet 10/03/21 lisinopriL [Lisinopril] 20 mg PO DAILY #30 tablet 10/03/21 - Allergies Allergies/Adverse Reactions: Allergies Allergy/AdvReac Type Severity Reaction Status Date / Time haloperidol [From Haldol] Allergy Severe Anxiety Verified 10/04/21 19:22 ketorolac [From Toradol] AdvReac Anxiety Verified 10/04/21 19:22 - Social History Does the pt smoke?: Yes Smoking Status: Current every day smoker Does the pt drink ETOH?: Yes Does the pt have substance abuse?: Yes - Immunizations Immunizations are current?: Yes Immunizations: Other immun not current - POLST Patient has POLST: No POLST Status: Full Code PD ED PE NORMAL - Vitals Vital signs reviewed: Yes - General General: Alert and oriented X 3, No acute distress, Well developed/nourished - HEENT HEENT: Moist mucous membranes - Neck Neck: Supple, no meningeal sign - Cardiac Cardiac: RRR, No murmur - Respiratory Respiratory: No respiratory distress, Clear bilaterally - Abdomen Abdomen: Normal bowel sounds, Soft, Non tender, Non distended - Derm Derm: Normal color, Warm and dry Results - Vitals Vitals: Oxygen O2 Source Room air - Labs Labs: Laboratory Tests 10/03/21 10/03/21 02:30 02:30 WBC 6.0 RBC 5.07 Hgb 14.2 Hct 42.5 MCV 83.8 MCH 28.0 MCHC 33.4 RDW 14.4 Plt Count 270 MPV 9.3 Neut # (Auto) 4.3 Lymph # (Auto) 1.0 L [place] # (Auto) 0.5 Eos # (Auto) 0.1 Baso # (Auto) 0.0 Absolute Nucleated RBC 0.00 Nucleated RBC % 0.0 Sodium 137 Potassium 3.6 Chloride 100 L Carbon Dioxide 27 Anion Gap 10.0 BUN 16 Creatinine 1.0 Estimated GFR (MDRD) 100 Glucose 152 H Calcium 9.0 Total Bilirubin 0.4 AST 42 ALT 42 Alkaline Phosphatase 84 Total Protein 7.5 Albumin 4.5 Globulin 3.0 Albumin/Globulin Ratio 1.5 Lipase 49 PD MEDICAL DECISION MAKING - ED course Complexity details: reviewed old records, reviewed results, re-evaluated patient, considered differential, d/w patient ED course: normal blood tests (serum glucose in 150s), including normal LFTs and normal lipase. He is asleep when I first enter room, awakens to voice. He is given IV fluids, IV droperidol, and IV ofirmev. On reevaluation, patient is again asleep, awakens to voice. He says he feels no improvement after these medications and IV fluids. He is given a second liter IV NS and 4 mg IV zofran. Also given 10mg PO lisinopril for persistently high blood pressures despite initial blood pressures (early in stay) being normal or mildly elevated. I note on previous visits a similar pattern (frequently high blood pressures but sometimes normal without specific intervention; this is noted, for example, on his last discharge summary from [facility]). He is discharged after this second round of fluids and anti-nausea medication, and prescriptions for anti-nauseant and lisinopril electronically submitted to his pharmacy of choice. Departure - Departure Disposition: 01 Home, Self Care Clinical Impression: Vomiting Qualifiers: Vomiting type: unspecified Nausea presence: with nausea Qualified Code(s): R11.2 - Nausea with vomiting, unspecified Hypertension Qualifiers: Hypertension type: unspecified Qualified Code(s): I10 - Essential (primary) hypertension Condition: Good Instructions: ED Hypertension New Begin Tx, ED Nausea Vomiting Follow-Up: Pooja Sparrow ARNP [Physician No Access] - Prescriptions: lisinopriL [Lisinopril] 20 mg PO DAILY #30 tablet Ondansetron Odt [Zofran] 4 mg TL Q6H PRN #14 tablet PRN Reason: Nausea / Vomiting Comments: Your blood tests were normal today (except for a mildly elevated blood sugar). Follow up with your primary care provider for reevaluation. As we discussed, your blood pressure readings were significantly elevated today. I also note that you have had high blood pressure readings on many previous visits to this ER. Untreated, high blood pressure is a risk factor for many medical problems such as stroke, heart attack, and damage to the kidneys. These problems result if the blood pressure is not controlled over time, but risk can be significantly reduced if the blood pressure is controlled. I have electronically submitted prescriptions for a blood pressure medication (lisinopril) as well as ondansetron (anti-nausea medication) to the [facility] pharmacy in [place]. Again, it is extremely important that you follow up with your primary care provider for long-term regulation of your blood pressure Discharge Date/Time: 10/03/21 10:09
[2021-10-03] MEDS ORDERED: ACETAMINOPHEN 1,000 MG/100 ML 100 ML IV STA (05:15)
[2021-10-03] MEDS ORDERED: DROPERIDOL 5 MG/2 ML VIAL IVP STA (05:15)
[2021-10-03] MEDS ORDERED: SODIUM CHLORIDE 0.9% 1,000 ML IV STA ×2 (05:16→07:51)
[2021-10-03] MEDS ORDERED: ONDANSETRON 4 MG/2 ML VIAL IVP STA (07:51)
[2021-10-03] MEDS ORDERED: lisinopriL 5 MG TABLET PO STA (07:51)
[2021-10-03] MEDS ORDERED: cloNIDine 0.1 MG TABLET PO STA (09:06)
[2021-10-03 10:09] VITALS: BP 207/119
== END 2021-10-03 10:09 | disposition home or self-care (01) ==
LOC: EDUNIT# → ED 02:03
DX: R10.9 Unspecified abdominal pain (principal); R11.2 Nausea with vomiting, unspecified; R03.0 Elevated blood-pressure reading, without diagnosis of hypertension; F17.200 Nicotine dependence, unspecified, uncomplicated
CPT/HCPCS: 36415; 80053; 83690; 85025; 96365; 96375; 99282; 99284; A9270; J0131

== ENCOUNTER 2021-10-04 18:47 | Outpatient (CLI) | payer MEDICAID | END 2021-10-04 18:48 | disposition critical access hospital (66) | LOC: EMS 18:47 | DX: R10.12 Left upper quadrant pain (principal); R10.32 Left lower quadrant pain; R11.2 Nausea with vomiting, unspecified | CPT/HCPCS: A0425; A0427; A0999 ==

== ENCOUNTER 2021-10-04 19:13 | Emergency (ER) | payer MEDICAID ==
[2021-10-04] MEDS ORDERED: HYDROmorphone 1 MG/ML CARPUJECT IVP STA (19:27)
[2021-10-04] MEDS ORDERED: DROPERIDOL 5 MG/2 ML VIAL IVP STA (19:27)
[2021-10-04] MEDS ORDERED: SODIUM CHLORIDE 0.9% 1,000 ML IV STA (19:27)
--- NOTE | 2021-10-04 19:30 | ED Physician Documentation ---
PD HPI NVD - Stated complaint Stated Complaint: ABD PAIN, N/V - Chief complaint Chief Complaint: Abd Pain - History obtained from History obtained from: Patient, EMS - History of Present Illness Timing - onset: Yesterday Timing - duration: Days (2) Timing - details: Abrupt onset, Still present Associated symptoms: Abdominal pain Contributing factors: Alcohol use, Other (cannabis use) Improved by: Vomiting Similar symptoms before: Diagnosis (Cannabis hyperemesis) Recently seen: Emergency Dept - Additonal information Additional information: 40-year-old male with a history of cannabis hyperemesis has been working hard last several days and felt like he was getting dehydrated states that he had some alcohol and then had just a little bit of marijuana and he developed his typical symptoms of abdominal pain and hyperemesis. He was seen in the emerge department yesterday in the early a.m. and treated with Inapsine. He returns today with recurrence of symptoms similar to what he had previously.He indicates that he felt that he was doing quite well has not been here to our emergency department in over 6 months and he states that he did consume some alcohol but only a small amount of marijuana and his symptoms recurred. Review of Systems Constitutional: denies: Fever Nose: denies: Congestion Throat: denies: Sore throat Cardiac: denies: Chest pain / pressure, Palpitations Respiratory: denies: Dyspnea, Cough GI: reports: Abdominal Pain, Nausea, Vomiting : denies: Dysuria, Frequency Skin: denies: Rash Musculoskeletal: denies: Neck pain, Back pain, Extremity pain Neurologic: denies: Generalized weakness, Focal weakness, Numbness PD PAST MEDICAL HISTORY - Past Medical History Cardiovascular: Hypertension Respiratory: None Neuro: None Endocrine/Autoimmune: None GI: GERD, Ulcers, Pancreatitis : None HEENT: None Psych: Depression, Anxiety, Panic attacks, Other Musculoskeletal: None Derm: None - Past Surgical History Past Surgical History: Yes General: Colonoscopy, EGD Ortho: Other - Present Medications Home Medications: Ambulatory Orders Medication Instructions Recorded Confirmed Ondansetron Odt [Zofran] 4 mg TL Q6H PRN #14 tablet 10/03/21 lisinopriL [Lisinopril] 20 mg PO DAILY #30 tablet 10/03/21 - Allergies Allergies/Adverse Reactions: Allergies Allergy/AdvReac Type Severity Reaction Status Date / Time haloperidol [From Haldol] Allergy Severe Anxiety Verified 10/04/21 19:22 ketorolac [From Toradol] AdvReac Anxiety Verified 10/04/21 19:22 - Social History Does the pt smoke?: Yes Smoking Status: Current every day smoker Does the pt drink ETOH?: Yes Does the pt have substance abuse?: Yes - Immunizations Immunizations are current?: Yes Immunizations: Other immun not current - POLST Patient has POLST: No POLST Status: Full Code PD ED PE NORMAL - Vitals Vital signs reviewed: Yes (hypertensive ) - General General: Alert and oriented X 3, Well developed/nourished - HEENT HEENT: Atraumatic, PERRL, EOMI - Neck Neck: Supple, no meningeal sign, No bony TTP - Cardiac Cardiac: RRR, No murmur - Respiratory Respiratory: No respiratory distress, Clear bilaterally - Abdomen Abdomen: Normal bowel sounds, Non distended, No organomegaly, Other (mild general tenderness not localized and not peritoneal. Firm muscular abdomen.) - Back Back: No CVA TTP, No spinal TTP - Derm Derm: Normal color, Warm and dry, No rash - Extremities Extremities: No deformity, No edema - Neuro Neuro: Alert and oriented X 3, drug safety coordinator 2-12 intact, No motor deficit, No sensory deficit, Normal speech Eye Opening: Spontaneous Motor: Obeys Commands Verbal: Oriented GCS Score: 15 - Psych Psych: Other (mood is withdrawn and the affect is flat) Results - Vitals Vitals: Vital Signs - 24 hr 10/04/21 19:18 Temperature 36.4 C L Heart Rate 86 Respiratory 19 Rate Blood Pressure 184/140 H O2 Saturation 98 Oxygen O2 Source Room air PD MEDICAL DECISION MAKING - ED course Complexity details: reviewed old records, reviewed results, re-evaluated trace jacobs, considered differential, d/w patient ED course: 40-year-old male with cannabis use disorder and cannabis hyperemesis has slipped again and has consumed cannabis he is now on his second day of symptoms with nausea and vomiting abdominal pain he did have rescue in the emergency department yesterday in the library supervisor and he is back here again this evening. This has been typical for his episodes previously. Here in the emerge department the patient is administered Intravenous saline and 2 half milligrams of Inapsine. The patient has improvement in his symptoms and is willing to attempt treatment at home. He has not had luck previously with any of the antiemetics helping. Departure - Departure Disposition: 01 Home, Self Care Clinical Impression: Cannabis hyperemesis syndrome concurrent with and due to cannabis abuse Condition: Stable Instructions: ED Marijuana Abuse, ED Nausea Vomiting Follow-Up: [facility] [Provider Group]
[2021-10-04 20:58] VITALS: BP 129/69
== END 2021-10-04 20:59 | disposition home or self-care (01) ==
LOC: EDBD → EDUNIT# → ED 19:13
DX: R11.2 Nausea with vomiting, unspecified (principal); F12.120 Cannabis abuse with intoxication, uncomplicated; F17.200 Nicotine dependence, unspecified, uncomplicated; I10 Essential (primary) hypertension
CPT/HCPCS: 96374; 99282

== ENCOUNTER 2021-10-05 17:11 | Outpatient (CLI) | payer MEDICAID | END 2021-10-05 17:12 | disposition critical access hospital (66) | LOC: EMS 17:11 | DX: R10.9 Unspecified abdominal pain (principal); R11.2 Nausea with vomiting, unspecified; R10.817 Generalized abdominal tenderness | CPT/HCPCS: A0425; A0427; A0999 ==

== ENCOUNTER 2021-10-05 17:43 | Emergency (ER) | payer MEDICAID ==
[2021-10-05] MEDS ORDERED: DROPERIDOL 5 MG/2 ML VIAL IVP STA (18:08)
[2021-10-05] MEDS ORDERED: SODIUM CHLORIDE 0.9% 1,000 ML IV STA (18:08)
--- NOTE | 2021-10-05 18:10 | ED Physician Documentation ---
History of Present Illness - Stated complaint Stated Complaint: ABD PX - Chief complaint Chief Complaint: Abd Pain - Additonal information Additional information: 40-year-old male returns to the emergency department for uncontrolled nausea and vomiting. Third visit in 2 days. 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 He had abstained from cannabis for nearly 6 months until he had a very small amount a few days ago and thus begins his cycle of uncontrolled vomiting. Seen here yesterday evening given IV fluids as well as Inapsine which controlled his symptoms in the emergency department but upon return home he has had uncontrolled vomiting with anything he eats or drinks despite taking Compazine and Zofran. No fevers. No diarrhea. No bloody output. Review of Systems Constitutional: denies: Fever, Chills Nose: reports: Reviewed and negative Throat: reports: Reviewed and negative Cardiac: reports: Reviewed and negative Respiratory: reports: Reviewed and negative GI: reports: Nausea, Vomiting. denies: Abdominal Pain : reports: Reviewed and negative Skin: reports: Reviewed and negative Musculoskeletal: reports: Reviewed and negative PD PAST MEDICAL HISTORY - Past Medical History Cardiovascular: Hypertension Respiratory: None Neuro: None Endocrine/Autoimmune: None GI: GERD, Ulcers, Pancreatitis : None HEENT: None Psych: Depression, Anxiety, Panic attacks, Other Musculoskeletal: None Derm: None - Past Surgical History Past Surgical History: Yes General: Colonoscopy, EGD Ortho: Other - Present Medications Home Medications: Ambulatory Orders Medication Instructions Recorded Confirmed Ondansetron Odt [Zofran] 4 mg TL Q6H PRN #14 tablet 10/03/21 lisinopriL [Lisinopril] 20 mg PO DAILY #30 tablet 10/03/21 - Allergies Allergies/Adverse Reactions: Allergies Allergy/AdvReac Type Severity Reaction Status Date / Time haloperidol [From Haldol] Allergy Severe Anxiety Verified 10/05/21 17:53 ketorolac [From Toradol] AdvReac Anxiety Verified 10/05/21 17:53 - Social History Does the pt smoke?: Yes Smoking Status: Current every day smoker Does the pt drink ETOH?: Yes Does the pt have substance abuse?: Yes - Immunizations Immunizations are current?: Yes Immunizations: Other immun not current - POLST Patient has POLST: No POLST Status: Full Code PD ED PE NORMAL - General General: Alert and oriented X 3, No acute distress - HEENT HEENT: PERRL - Cardiac Cardiac: RRR - Respiratory Respiratory: No respiratory distress, Clear bilaterally - Abdomen Abdomen: Soft. No: Non tender (Mild tenderness of the epigastrium without guarding or rebound) - Back Back: No CVA TTP, No spinal TTP - Derm Derm: Normal color, Warm and dry, No rash - Extremities Extremities: No deformity, No tenderness to palpate - Neuro Neuro: Alert and oriented X 3, national secretary 2-12 intact Eye Opening: Spontaneous Motor: Obeys Commands Verbal: Oriented GCS Score: 15 - Psych Psych: Other (Depressed affect) Results - Vitals Vitals: Vital Signs - 24 hr 10/05/21 10/05/21 17:44 17:52 Temperature 37.2 C 98.8 C H Heart Rate 78 78 Respiratory 18 18 Rate Blood Pressure 158/91 H O2 Saturation 97 98 Oxygen O2 Source Room air - Labs Labs: Laboratory Tests 10/05/21 18:23 Sodium 135 Potassium 3.2 L Chloride 96 L Carbon Dioxide 26 Anion Gap 13.0 BUN 32 H Creatinine 1.2 Estimated GFR (MDRD) 81 L Glucose 114 H Calcium 9.2 PD MEDICAL DECISION MAKING - ED course Complexity details: reviewed results, re-evaluated patient, d/w patient ED course: 40-year-old male well-known to the emergency department presents with uncontrolled nausea and vomiting. Seen multiple times recently for similar. He does have a history of cannabis induced cyclic vomiting. Seen last night received droperidol IV fluids and was discharged home. However he reports today vomiting uncontrollably. Here in the emergency department he is administered again IV fluids as well as 2.5 mg of Inapsine. He is noted to be hypokalemic with a K of 3.2. He is orally repleted with 40 of potassium. Following the Inapsine and IV fluids he is tolerating clear liquids. Patient does have some antiemetics waiting for him at the pharmacy which she has not filled and he is encouraged to do so. He remains hemodynamically stable with a benign abdominal exam thus advanced imaging was deferred. Emergent return precautions discussed Departure - Departure Disposition: Home, Self Care Clinical Impression: Cyclic vomiting syndrome Condition: Stable Record reviewed to determine appropriate education?: Yes Comments: Javi mario are seen today again for uncontrolled nausea and vomiting. We have given you droperidol here in the ER which has given you good control of symptoms. You do have some antiemetic medication available for you at the pharmacy which I encourage you to fill. You do seem to enter cycles of vomiting after any minor cannabis intake. I do recommend that you abstain from cannabis use in the future. If despite taking the antiemetics at home you continue to vomit please return immediately to the ER
[2021-10-05 18:36] LABS: CALCIUM 9.2 mg/dL (8.5-10.3); CREATININE 1.2 mg/dL (0.6-1.2); POTASSIUM 3.2 mmol/L (3.5-5.0)
[2021-10-05] MEDS ORDERED: POTASSIUM CHLORIDE 20 MEQ TABLET PO STA (19:16)
[2021-10-05 19:38] VITALS: BP 133/85
== END 2021-10-05 19:46 | disposition home or self-care (01) ==
LOC: EDUNIT# → ED 17:43
DX: R11.15 Cyclical vomiting syndrome unrelated to migraine (principal); I10 Essential (primary) hypertension; F17.200 Nicotine dependence, unspecified, uncomplicated
CPT/HCPCS: 36415; 80048; 96361; 96374; 99284; A9270

== ENCOUNTER 2021-10-07 12:36 | Outpatient (CLI) | payer MEDICAID | END 2021-10-07 23:59 | disposition critical access hospital (66) | LOC: EMS 12:36 | DX: R10.9 Unspecified abdominal pain (principal); R11.0 Nausea | CPT/HCPCS: A0425; A0429; A0999 ==

== ENCOUNTER 2021-10-07 13:05 | Emergency (ER) | payer MEDICAID ==
--- NOTE | 2021-10-07 13:07 | ED Physician Documentation ---
PD HPI ABD PAIN - Stated complaint Stated Complaint: BACK/ABD PX - History obtained from History obtained from: Patient - History of Present Illness Timing - onset: How many weeks ago (1) Timing - duration: Weeks (1) Timing - details: Gradual onset, Still present, Waxing and waning (He has had considerable improvement in symptoms with IV fluids and medications in the ER several times this week but states not completely resolved and symptoms back soon after returning home.) Quality: Aching, Pain Location: RUQ, Epigastric Radiation: No: Chest, Lower back Improved by: Eating. No: Vomiting, Meds (He has ODT ondansetron at home but currently no other antiemetics. No current suppository versions.) Worsened by: No: Eating Associated symptoms: Nausea, Vomiting. No: Fever, Hematemesis, Diarrhea, Constipation, Melena, Dysuria Similar symptoms before: Diagnosis (Previous history of pancreatitis years ago but most commonly now seems cannabis hyperemesis.) Recently seen: Emergency Dept Review of Systems Constitutional: denies: Fever, Chills Nose: denies: Rhinorrhea / runny nose, Congestion Throat: denies: Sore throat Respiratory: denies: Cough GI: reports: Abdominal Pain, Nausea, Vomiting. denies: Abdominal Swelling, Hematemesis, Bloody / black stool : denies: Dysuria Neurologic: reports: Generalized weakness. denies: Near syncope, Altered mental status PD PAST MEDICAL HISTORY - Past Medical History Cardiovascular: Hypertension Respiratory: None Neuro: None Endocrine/Autoimmune: None GI: GERD, Ulcers, Pancreatitis : None HEENT: None Psych: Depression, Anxiety, Panic attacks, Other Musculoskeletal: None Derm: None - Past Surgical History Past Surgical History: Yes General: Colonoscopy, EGD Ortho: Other - Present Medications Home Medications: Ambulatory Orders Medication Instructions Recorded Confirmed Ondansetron Odt [Zofran] 4 mg TL Q6H PRN #14 tablet 10/03/21 lisinopriL [Lisinopril] 20 mg PO DAILY #30 tablet 10/03/21 Famotidine [Pepcid] 20 mg PO BID #20 tablet 10/07/21 Prochlorperazine Supp [Compazine 25 mg AK Q8H PRN #15 supp 10/07/21 Supp] Promethazine [Phenergan] 25 mg PO Q6H PRN #10 tab 10/07/21 - Allergies Allergies/Adverse Reactions: Allergies Allergy/AdvReac Type Severity Reaction Status Date / Time haloperidol [From Haldol] Allergy Severe Anxiety Verified 10/05/21 17:53 ketorolac [From Toradol] AdvReac Anxiety Verified 10/05/21 17:53 - Social History Does the pt smoke?: Yes Smoking Status: Current every day smoker Does the pt drink ETOH?: Yes Does the pt have substance abuse?: Yes - Immunizations Immunizations are current?: Yes Immunizations: Other immun not current - POLST Patient has POLST: No POLST Status: Full Code PD ED PE NORMAL - Vitals Vital signs reviewed: Yes - General General: Alert and oriented X 3, Well developed/nourished, Other (appears uncomfortable due to abd pain, and nausea. Dry heaving in ER. ) - Neck Neck: Supple, no meningeal sign, No adenopathy - Cardiac Cardiac: RRR, No murmur - Respiratory Respiratory: Clear bilaterally - Abdomen Abdomen: Soft, Non distended, No organomegaly, Other (tender with guarding epigastric area with some guarding. No percussion tenderness. ). No: Normal bowel sounds (decreased) - Male Male : Deferred - Rectal Rectal: Deferred - Back Back: No CVA TTP - Derm Derm: Normal color, Warm and dry - Neuro Neuro: Alert and oriented X 3, No motor deficit, Normal speech Results - Vitals Vitals: Vital Signs - 24 hr 10/07/21 10/07/21 10/07/21 13:09 13:15 14:15 Temperature 36.6 C Heart Rate 67 70 72 Respiratory 18 18 20 Rate Blood Pressure 134/115 H 134/115 H 120/70 O2 Saturation 99 98 100 10/07/21 10/07/21 15:45 16:35 Temperature 36.7 C Heart Rate 50 L 50 L Respiratory 16 16 Rate Blood Pressure 129/89 H 126/90 H O2 Saturation 100 99 Oxygen O2 Source Room air - Labs Labs: Laboratory Tests 10/07/21 10/07/21 13:32 13:32 WBC 6.1 RBC 5.58 Hgb 15.9 Hct 46.3 MCV 83.0 MCH 28.5 MCHC 34.3 RDW 13.9 Plt Count 335 MPV 9.2 Neut # (Auto) 3.3 Lymph # (Auto) 1.8 [place] # (Auto) 0.9 Eos # (Auto) 0.1 Baso # (Auto) 0.0 Absolute Nucleated RBC 0.00 Nucleated RBC % 0.0 Sodium 129 L Potassium 3.3 L Chloride 89 L Carbon Dioxide 27 Anion Gap 13.0 BUN 31 H Creatinine 1.3 H Estimated GFR (MDRD) 74 L Glucose 116 H Calcium 9.8 Magnesium 2.6 Total Bilirubin 1.1 H AST 25 ALT 30 Alkaline Phosphatase 92 Total Protein 8.3 H Albumin 4.9 Globulin 3.4 Albumin/Globulin Ratio 1.4 Lipase 48 PD MEDICAL DECISION MAKING - ED course Complexity details: reviewed old records, re-evaluated patient (improved with IV fluids and meds. Feeling able to take PO fluids, and able to discharge.), considered differential (frequent similar episodes related to likely cannibis hyperemesis. Prefious history of pancreatitis but long ago. Visits often in clusters of several days in a row over a week or so, then often none for months. ), d/w patient Departure - Departure Disposition: 01 Home, Self Care Clinical Impression: Upper abdominal pain Nausea and vomiting Qualifiers: Vomiting type: unspecified Qualified Code(s): R11.2 - Nausea with vomiting, unspecified Condition: Stable Record reviewed to determine appropriate education?: Yes Prescriptions: Prochlorperazine Supp [Compazine Supp] 25 mg [place] Q8H PRN #15 supp PRN Reason: Nausea / Vomiting Famotidine [Pepcid] 20 mg PO BID #20 tablet Promethazine [Phenergan] 25 mg PO Q6H PRN #10 tab PRN Reason: Nausea / Vomiting Comments: Small frequent fluids. Famotidine twice daily for the next week to 2 weeks to reduce stomach acids. Use promethazine every 6 hours as needed for nausea or prochlorperazine suppositories every 6-8 hours if needed for nausea and vomiting if unable to keep medications down. Discharge Date/Time: 10/07/21 16:36
[2021-10-07] MEDS ORDERED: SODIUM CHLORIDE 0.9% 1,000 ML IV STA ×2 (13:21→13:24)
[2021-10-07] MEDS ORDERED: FAMOTIDINE 20 MG/2 ML VIAL IVP STA (13:23)
[2021-10-07] MEDS ORDERED: diphenhydrAMINE INJ 50 MG/ML VIAL IVP STA (13:23)
[2021-10-07] MEDS ORDERED: DROPERIDOL 5 MG/2 ML VIAL IVP STA (13:23)
[2021-10-07 13:36] LABS: BASOPHILS % (AUTO) 0.7 %; EOSINOPHILS # (AUTO) 0.1 10^3/uL (0.0-0.7); EOSINOPHILS % (AUTO) 1.1 %; HCT - HEMATOCRIT 46.3 % (42.0-52.0); HGB - HEMOGLOBIN 15.9 g/dL (14.0-18.0); LYMPHOCYTES # (AUTO) 1.8 10^3/uL (1.5-3.5); MEAN CORPUSCULAR HEMOGLOBIN 28.5 pg (27.0-31.0); MEAN CORPUSCULAR HGB CONC 34.3 g/dL (32.0-36.0); MEAN PLATELET VOLUME 9.2 fL (7.4-11.4); MONOCYTES # (AUTO) 0.9 10^3/uL (0.0-1.0); MONOCYTES % (AUTO) 13.9 %; NEUTROPHILS # (AUTO) 3.3 10^3/uL (1.5-6.6); NEUTROPHILS % (AUTO) 54.1 %; PLT - PLATELET COUNT 335 10^3/uL (130-450); RED BLOOD COUNT 5.58 10^6/uL (4.70-6.10); RED CELL DISTRIBUTION WIDTH 13.9 % (12.0-15.0); WHITE BLOOD COUNT 6.1 x10^3/uL (4.8-10.8)
[2021-10-07 13:49] LABS: ALBUMIN 4.9 g/dL (3.2-5.5); ALBUMIN/GLOBULIN RATIO 1.4 (1.0-2.2); BILIRUBIN,TOTAL 1.1 mg/dL (0.2-1.0); CALCIUM 9.8 mg/dL (8.5-10.3); CREATININE 1.3 mg/dL (0.6-1.2); MAGNESIUM 2.6 mg/dL (1.7-2.8); POTASSIUM 3.3 mmol/L (3.5-5.0); TOTAL PROTEIN 8.3 g/dL (6.7-8.2)
[2021-10-07 16:36] VITALS: BP 126/90
== END 2021-10-07 16:36 | disposition home or self-care (01) ==
LOC: EDUNIT# → ED 13:05
DX: R10.10 Upper abdominal pain, unspecified (principal); R11.2 Nausea with vomiting, unspecified; F17.200 Nicotine dependence, unspecified, uncomplicated
CPT/HCPCS: 36415; 80053; 83690; 83735; 85025; 96374; 99284; J1200

== ENCOUNTER 2021-10-09 20:43 | Outpatient (CLI) | payer MEDICAID | END 2021-10-09 20:44 | disposition critical access hospital (66) | LOC: EMS 20:43 | DX: R10.84 Generalized abdominal pain (principal); R11.0 Nausea; R03.0 Elevated blood-pressure reading, without diagnosis of hypertension; R00.0 Tachycardia, unspecified | CPT/HCPCS: A0425; A0427; A0999 ==

== ENCOUNTER 2021-10-09 21:10 | Emergency (ER) | payer MEDICAID ==
[2021-10-09 21:56] LABS: BASOPHILS % (AUTO) 0.9 %; EOSINOPHILS # (AUTO) 0.1 10^3/uL (0.0-0.7); HCT - HEMATOCRIT 48.4 % (42.0-52.0); HGB - HEMOGLOBIN 16.6 g/dL (14.0-18.0); LYMPHOCYTES # (AUTO) 1.2 10^3/uL (1.5-3.5); LYMPHOCYTES % (AUTO) 26.3 %; MEAN CORPUSCULAR HEMOGLOBIN 28.4 pg (27.0-31.0); MEAN CORPUSCULAR HGB CONC 34.3 g/dL (32.0-36.0); MEAN CORPUSCULAR VOLUME 82.9 fL (80.0-94.0); MEAN PLATELET VOLUME 9.4 fL (7.4-11.4); MONOCYTES # (AUTO) 0.7 10^3/uL (0.0-1.0); MONOCYTES % (AUTO) 15.2 %; NEUTROPHILS # (AUTO) 2.4 10^3/uL (1.5-6.6); NEUTROPHILS % (AUTO) 55.4 %; PLT - PLATELET COUNT 359 10^3/uL (130-450); RED BLOOD COUNT 5.84 10^6/uL (4.70-6.10); RED CELL DISTRIBUTION WIDTH 13.6 % (12.0-15.0); WHITE BLOOD COUNT 4.4 x10^3/uL (4.8-10.8)
[2021-10-09 22:11] LABS: ALBUMIN 5.2 g/dL (3.2-5.5); ALBUMIN/GLOBULIN RATIO 1.5 (1.0-2.2); CALCIUM 9.5 mg/dL (8.5-10.3); CREATININE 1.5 mg/dL (0.6-1.2); POTASSIUM 3.1 mmol/L (3.5-5.0); TOTAL PROTEIN 8.6 g/dL (6.7-8.2)
[2021-10-09] MEDS: DROPERIDOL 5 MG/2 ML VIAL IVP STA (22:12)
[2021-10-09] MEDS: SODIUM CHLORIDE 0.9% 1,000 ML IV STA (22:12)
[2021-10-09] MEDS: POTASSIUM CHLORIDE 20 MEQ TABLET PO STA (23:45)
--- NOTE | 2021-10-10 00:03 | ED Physician Documentation ---
PD HPI ABD PAIN - Stated complaint Stated Complaint: ABD PX - Chief complaint Chief Complaint: Abd Pain - Additional information Additional information: Patient with a history of pancreatitis and cannabis abuse presenting for evaluation of upper abdominal pain with vomiting. His symptoms have been ongoing for the past week. He has had several recent ED visits for similar presentations. He is able to tolerate some liquids but not solid food. He did try oral antiemetics at home without improvement. He did not try suppository antiemetics that were prescribed.The pain is sharp. Nothing makes it better or worse. He denies diarrhea. It feels similar to previous Visits. He last smoked cannabis approximately 1 week ago.He denies fever, chest pain, difficulty breathing, back pain. Review of Systems Constitutional: denies: Fever Nose: denies: Congestion Cardiac: denies: Chest pain / pressure Respiratory: denies: Dyspnea, Cough GI: reports: Abdominal Pain, Nausea, Vomiting : denies: Dysuria Skin: denies: Rash Musculoskeletal: denies: Back pain Neurologic: denies: Headache PD PAST MEDICAL HISTORY - Past Medical History Cardiovascular: Hypertension Respiratory: None Neuro: None Endocrine/Autoimmune: None GI: GERD, Ulcers, Pancreatitis : None HEENT: None Psych: Depression, Anxiety, Panic attacks, Other Musculoskeletal: None Derm: None - Past Surgical History Past Surgical History: Yes General: Colonoscopy, EGD Ortho: Other - Present Medications Home Medications: Ambulatory Orders Medication Instructions Recorded Confirmed Ondansetron Odt [Zofran] 4 mg TL Q6H PRN #14 tablet 10/03/21 10/09/21 lisinopriL [Lisinopril] 20 mg PO DAILY #30 tablet 10/03/21 10/09/21 Famotidine [Pepcid] 20 mg PO BID #20 tablet 10/07/21 10/09/21 Prochlorperazine Supp [Compazine 25 mg MS Q8H PRN #15 supp 10/07/21 10/09/21 Supp] Promethazine [Phenergan] 25 mg PO Q6H PRN #10 tab 10/07/21 10/09/21 - Allergies Allergies/Adverse Reactions: Allergies Allergy/AdvReac Type Severity Reaction Status Date / Time haloperidol [From Haldol] Allergy Severe Anxiety Verified 10/05/21 17:53 ketorolac [From Toradol] AdvReac Anxiety Verified 10/05/21 17:53 - Social History Does the pt smoke?: Yes Smoking Status: Current every day smoker Does the pt drink ETOH?: Yes Does the pt have substance abuse?: Yes - Immunizations Immunizations are current?: Yes Immunizations: Other immun not current - POLST Patient has POLST: No POLST Status: Full Code PD ED PE NORMAL - General General: Alert and oriented X 3, No acute distress, Well developed/nourished - HEENT HEENT: Atraumatic, Moist mucous membranes - Neck Neck: Supple, no meningeal sign - Cardiac Cardiac: RRR, Strong equal pulses - Respiratory Respiratory: No respiratory distress, Clear bilaterally - Abdomen Abdomen: Normal bowel sounds, Soft, Non distended, Other (Mild upper abdominal tenderness to palpation, no rebound ) - Back Back: No CVA TTP - Derm Derm: Normal color, No rash - Extremities Extremities: No edema - Neuro Neuro: No motor deficit, Normal speech - Psych Psych: Normal mood, Normal affect Results - Vitals Vitals: Vital Signs - 24 hr 10/09/21 10/09/21 10/10/21 21:18 23:22 00:51 Temperature 37.2 C Heart Rate 80 55 L Respiratory 22 12 18 Rate Blood Pressure 138/105 H 123/81 H 118/72 O2 Saturation 97 99 Oxygen O2 Source Room air - EKG (time done) 2201 Rate: Rate (enter#) (60) Rhythm: NSR Climax: Normal Intervals: Other (QTC 445) Ischemia: No: ST elevation c/w ischemia - Labs Labs: Laboratory Tests 10/09/21 10/09/21 21:51 21:51 WBC 4.4 L RBC 5.84 Hgb 16.6 Hct 48.4 MCV 82.9 MCH 28.4 MCHC 34.3 RDW 13.6 Plt Count 359 MPV 9.4 Neut # (Auto) 2.4 Lymph # (Auto) 1.2 L [place] # (Auto) 0.7 Eos # (Auto) 0.1 Baso # (Auto) 0.0 Absolute Nucleated RBC 0.00 Nucleated RBC % 0.0 Sodium 136 Potassium 3.1 L Chloride 89 L Carbon Dioxide 30 Anion Gap 17.0 H BUN 28 H Creatinine 1.5 H Estimated GFR (MDRD) 63 L Glucose 111 H Calcium 9.5 Magnesium 3.0 H Total Bilirubin 1.0 AST 31 ALT 33 Alkaline Phosphatase 88 Total Protein 8.6 H Albumin 5.2 Globulin 3.4 Albumin/Globulin Ratio 1.5 Lipase 58 H PD MEDICAL DECISION MAKING - ED course ED course: Patient with upper abdominal pain and vomiting. He has had numerous previous ED visits with similar presentations. Vital signs are reassuring. Mild tenderness on initial exam which is improved after droperidol and IV fluids. He is able to tolerate p.o. Potassium was repleted orally. Do not think he needs abdominal imaging at this time. He was counseled on cannabis cessation as this is the likely trigger for this Episode.He already has multiple prescriptions including some which she has not tried. Encouraged him to continue with hydration and antiemetics as needed. Departure - Departure Disposition: 01 Home, Self Care Clinical Impression: Upper abdominal pain, Hypokalemia Nausea & vomiting Qualifiers: Vomiting type: unspecified Qualified Code(s): R11.2 - Nausea with vomiting, unspecified Condition: Stable Instructions: ED Potassium Deficiency, ED Nausea Vomiting Comments: You were evaluated for Abdominal pain as well as nausea and vomiting. Your potassium was slightly low and you were given a potassium pill. Please continue to hydrate with small amounts of fluid through the weekend to prevent dehydration.Also received many prescriptions in recent visits to help you with your symptoms. 1 of these prescriptions is for suppositories which can be used if you are not able to hold down pills. This could help you with your vomiting to prevent dehydration. Please follow-up with your primary care physician. Your symptoms could be related to cannabis use and I highly encourage you to stop all cannabis use in the future. Discharge Date/Time: 10/10/21 00:53
[2021-10-10 00:53] VITALS: BP 118/72
== END 2021-10-10 00:53 | disposition home or self-care (01) ==
LOC: EDUNIT# → ED 21:10
DX: R10.10 Upper abdominal pain, unspecified (principal); R11.2 Nausea with vomiting, unspecified; E87.6 Hypokalemia; I10 Essential (primary) hypertension; F17.200 Nicotine dependence, unspecified, uncomplicated
CPT/HCPCS: 36415; 80053; 83690; 83735; 85025; 93005; 96361; 96374; 99284; A9270

== ENCOUNTER 2021-12-08 08:33 | Emergency (ER) | payer MEDICAID ==
[2021-12-08 08:58] VITALS: BP 146/89
--- NOTE | 2021-12-08 10:18 | ED Physician Documentation ---
PD HPI MALE - Stated complaint Stated Complaint: BODY RASH/MALE - Chief complaint Chief Complaint: Allergic Rx - History obtained from History obtained from: Patient - History of Present Illness Timing - onset: How many days ago (22) Timing - duration: Days (2) Timing - details: Gradual onset, Still present Associated symptoms: Hematuria, Discharge, Testiclar pain, Scrotal swelling. No: Dysuria, Urinary frequency PD HPI MALE CONTRIB FACTORS: Not sexually active Similar symptoms before: Has not had sx before Recently seen: Not recently seen - Additional information Additional information: 41-year-old Javi Jarvis is a frequent patient to our emergency department usually for cannabis hyperemesis. Today he is in here for a rash on his face since and is swelling to the left testicle. He has had this rash on his face previously and was prescribed an antibiotic and this resolved. Review of Systems Constitutional: denies: Fever Ears: denies: Ear pain Nose: denies: Congestion Throat: denies: Sore throat Cardiac: denies: Chest pain / pressure Respiratory: denies: Dyspnea, Cough GI: denies: Abdominal Pain, Nausea, Vomiting, Constipation, Diarrhea : reports: Hematuria, Discharge, Testicular pain. denies: Dysuria, Frequency Skin: denies: Rash Musculoskeletal: denies: Neck pain, Back pain, Extremity pain PD PAST MEDICAL HISTORY - Past Medical History Cardiovascular: Hypertension Respiratory: None Neuro: None Endocrine/Autoimmune: None GI: GERD, Ulcers, Pancreatitis : None HEENT: None Psych: Depression, Anxiety, Panic attacks, Other Musculoskeletal: None Derm: None - Past Surgical History Past Surgical History: Yes General: Colonoscopy, EGD Ortho: Other - Present Medications Home Medications: Ambulatory Orders Medication Instructions Recorded Confirmed Doxycycline Hyclate 100 mg PO BID #20 cap 12/08/21 - Allergies Allergies/Adverse Reactions: Allergies Allergy/AdvReac Type Severity Reaction Status Date / Time haloperidol [From Haldol] Allergy Severe Anxiety Verified 12/08/21 08:54 ketorolac [From Toradol] AdvReac Anxiety Verified 12/08/21 08:54 - Social History Does the pt smoke?: Yes Smoking Status: Current every day smoker Does the pt drink ETOH?: Yes Does the pt have substance abuse?: Yes - Immunizations Immunizations are current?: Yes Immunizations: Other immun not current - POLST Patient has POLST: No POLST Status: Full Code PD ED PE NORMAL - Vitals Vital signs reviewed: Yes (hypertensive mild ) - General General: Alert and oriented X 3, No acute distress, Well developed/nourished - HEENT HEENT: Atraumatic, PERRL, EOMI, Other (There is skin breakdown with erythema consistent with superficial irritation or infection mostly to the left chin and around both nipples. ) - Respiratory Respiratory: No respiratory distress - Male Male : Other (The left axis goal is swollen and tender as is the epididymis. 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 Findings suggestive of left- sided epididymitis. Moderate size reactive left hydrocele and left scrotal skin thickening. No evidence of testicular torsion. Preliminary results given by the senior clinical research associate to the ordering provider.), EMP read indepedently, See rad report PD MEDICAL DECISION MAKING - ED course Complexity details: reviewed results, re-evaluated patient, considered differential, d/w patient ED course: 41-year-old male with left testicular swelling and tenderness has Epididymitis and he is treated with doxycycline. He does have some rash to his face and around his nipples that he is concerned is an infection similar to what is had previously. He is placed on doxycycline. Departure - Departure Disposition: 01 Home, Self Care Clinical Impression: Acute epididymitis, Skin irritation Condition: Stable Instructions: ED Dermatitis Non Specific Rash, ED Epididymitis Follow-Up: Nicola Mojica MD [Provider Admit Priv/Credential] - Prescriptions: Doxycycline Hyclate 100 mg PO BID #20 cap Comments: Javi, today it looks like you have acute epididymitis which is an infection in the epididymis causing swelling to the testicle antibiotic is the treatment as well as anti-inflammatory. I have given you the name of a physician for follow-up. Our expectation is reduced swelling and reduced symptoms over the next 2 to 3 days. Your medication has been E scribed to [facility] Hardin in [place] Discharge Date/Time: 12/08/21 12:25
--- NOTE | 2021-12-08 12:27 | Ultrasound Report ---
PROCEDURE: Testicle w/Doppler Limited INDICATIONS: left testicle swelling/pain TECHNIQUE: Real-time scanning was performed of the scrotum and testicles, with image documentation. Color and p ulse Doppler interrogation was performed of both testicles. COMPARISON: None. FINDINGS: Right: Testicle is normal in size at 4.1 x 2.0 x 2.9 cm, and homogenous in echotexture. Epididymis is normal in overall size and morphology. No hydrocele or varicoceles. Overlying scrotal skin is no rmal in thickness. Left: Testicle is normal in size at 3.6 x 1.8 x 2.7 cm, and homogeneous in echotexture. Epididymis is slightly enlarged, heterogeneous, and demonstrates increased vascularity. Moderate-sized hydrocele . Left scrotal wall is mildly thickened. Doppler: Color and pulse Doppler demonstrate normal and symmetric arterial flow in both testicles. IMPRESSION: 1. Findings suggestive of left-sided epididymitis. 2. Moderate-sized reactive left hydrocele and left scrotal skin thickening. 3. No evidence of testicular torsion. 4. Preliminary results given by the floriculture professor to the ordering provider. Reviewed by: Layne Arellano MD on 12/08/2021 12:25 PM PDT Approved by: Layne Arellano MD on 12/08/2021 12:25 PM PDT Station ID: [id number]
== END 2021-12-08 12:25 | disposition home or self-care (01) ==
LOC: ED 08:33
DX: N45.1 Epididymitis (principal); F17.200 Nicotine dependence, unspecified, uncomplicated; I10 Essential (primary) hypertension
CPT/HCPCS: 87491; 87591; 93976; 99282; 99284

== ENCOUNTER 2022-04-20 22:48 | Emergency (ER) | payer MEDICAID ==
[2022-04-20] MEDS ORDERED: oxyCODONE 5 MG TABLET PO STA (23:30)
[2022-04-20] MEDS ORDERED: IBUPROFEN 600 MG TABLET PO STA (23:30)
[2022-04-20] MEDS ORDERED: CLINDAMYCIN 900 MG/50 ML 50 ML IV ONE (23:59)
[2022-04-21 00:02] LABS: BASOPHILS # (AUTO) 0.1 10^3/uL (0.0-0.1); BASOPHILS % (AUTO) 0.8 %; EOSINOPHILS # (AUTO) 0.3 10^3/uL (0.0-0.7); EOSINOPHILS % (AUTO) 4.8 %; HCT - HEMATOCRIT 41.1 % (42.0-52.0); HGB - HEMOGLOBIN 13.4 g/dL (14.0-18.0); MEAN CORPUSCULAR HEMOGLOBIN 28.2 pg (27.0-31.0); MEAN CORPUSCULAR HGB CONC 32.6 g/dL (32.0-36.0); MEAN CORPUSCULAR VOLUME 86.3 fL (80.0-94.0); MEAN PLATELET VOLUME 8.9 fL (7.4-11.4); MONOCYTES # (AUTO) 0.8 10^3/uL (0.0-1.0); MONOCYTES % (AUTO) 11.7 %; NEUTROPHILS # (AUTO) 3.5 10^3/uL (1.5-6.6); NEUTROPHILS % (AUTO) 52.5 %; PLT - PLATELET COUNT 326 10^3/uL (130-450); RED BLOOD COUNT 4.76 10^6/uL (4.70-6.10); WHITE BLOOD COUNT 6.6 x10^3/uL (4.8-10.8)
[2022-04-21 00:09] LABS: CALCIUM 9.2 mg/dL (8.5-10.3); POTASSIUM 3.5 mmol/L (3.5-5.0)
[2022-04-21 00:53] VITALS: BP 154/108
--- NOTE | 2022-04-21 00:58 | XRAY Report ---
PROCEDURE: Tib/Fib LT INDICATIONS: wound site pain. cut to bone 1 wk ago with saw TECHNIQUE: 2 views of the tibia and fibula were acquired. COMPARISON: None. FINDINGS: Bones: There is a small bony cortical defect within the anterior margin of the distal tibial shaft. N o suspicious bony lesions. Soft tissues: No suspicious soft tissue calcifications or masses. IMPRESSION: 1. Small cortical defect within the anterior aspect of the distal tibial shaft likely correlate with patient's history of penetrating injury. Reviewed by: Demetrius Guerrero MD on 04/21/2022 12:56 AM PDT Approved by: Demetrius Guerrero MD on 04/21/2022 12:56 AM PDT Station ID: [id number]
--- NOTE | 2022-04-21 01:15 | ED Physician Documentation ---
History of Present Illness - Stated complaint Stated Complaint: L LEG INJ - Chief complaint Chief Complaint: Ext Problem - History obtained from History obtained from: Patient, Family (mother) - Additonal information Additional information: 41-year-old man with recent history of laceration down to the bone of the tibia of the left leg from a saw a week ago presents with wound swelling and pain for the past several days. Patient was seen at [facility] after initial injury, underwent laceration repair and has been on antibiotics (cephalexin 500 mg 4 times daily for the past 4 days) but is experiencing significant swelling and pain. denies fever or crepitus. tdap utd. Review of Systems Constitutional: denies: Fever Skin: reports: Laceration (s) Musculoskeletal: reports: Extremity pain PD PAST MEDICAL HISTORY - Past Medical History Cardiovascular: Hypertension Respiratory: None Neuro: None Endocrine/Autoimmune: None GI: GERD, Ulcers, Pancreatitis : None HEENT: None Psych: Depression, Anxiety, Panic attacks, Other Musculoskeletal: None Derm: None - Past Surgical History Past Surgical History: Yes General: Colonoscopy, EGD Ortho: Other - Present Medications Home Medications: Ambulatory Orders Medication Instructions Recorded Confirmed clindamycin HCL [Clindamycin HCl] 300 mg PO QID 7 Days #28 cap 04/21/22 - Allergies Allergies/Adverse Reactions: Allergies Allergy/AdvReac Type Severity Reaction Status Date / Time haloperidol [From Haldol] Allergy Severe Anxiety Verified 12/08/21 08:54 ketorolac [From Toradol] AdvReac Anxiety Verified 12/08/21 08:54 - Social History Does the pt smoke?: Yes Smoking Status: Current every day smoker Does the pt drink ETOH?: Yes Does the pt have substance abuse?: Yes - Immunizations Immunizations are current?: Yes Immunizations: Other immun not current - POLST Patient has POLST: No POLST Status: Full Code PD ED PE NORMAL - Vitals Vital signs reviewed: Yes - General General: Alert and oriented X 3, No acute distress, Well developed/nourished - HEENT HEENT: Atraumatic, PERRL, EOMI - Derm Derm: Other (erythema and swelling to wound site (horizontal laceration of left anterior leg with sutures in place. mild purulence to wound. erythema around wound site. ttp) Results - Vitals Vitals: Vital Signs - 24 hr 04/20/22 04/21/22 23:01 00:52 Temperature 36.9 C Heart Rate 68 63 Respiratory 17 17 Rate Blood Pressure 159/99 H 154/108 H O2 Saturation 100 100 Oxygen O2 Source Room air - Labs Labs: Microbiology 04/20/22 23:34 Wound Culture - Preliminary Left Lower Extremity Laboratory Tests 04/20/22 04/20/22 04/20/22 23:50 23:50 23:50 WBC 6.6 RBC 4.76 Hgb 13.4 L Hct 41.1 L MCV 86.3 MCH 28.2 MCHC 32.6 RDW 15.0 Plt Count 326 MPV 8.9 Neut # (Auto) 3.5 Lymph # (Auto) 2.0 [place] # (Auto) 0.8 Eos # (Auto) 0.3 Baso # (Auto) 0.1 Absolute Nucleated RBC 0.00 Nucleated RBC % 0.0 ESR Sodium 135 Potassium 3.5 Chloride 99 L Carbon Dioxide 29 Anion Gap 7.0 BUN 15 Creatinine 1.0 Estimated GFR (MDRD) 100 Glucose 99 Lactic Acid 0.9 Calcium 9.2 C-React Prot High Sens 04/20/22 04/20/22 23:50 23:50 WBC RBC Hgb Hct MCV MCH MCHC RDW Plt Count MPV Neut # (Auto) Lymph # (Auto) [place] # (Auto) Eos # (Auto) Baso # (Auto) Absolute Nucleated RBC Nucleated RBC % ESR 8 Sodium Potassium Chloride Carbon Dioxide Anion Gap BUN Creatinine Estimated GFR (MDRD) Glucose Lactic Acid Calcium C-React Prot High Sens 1.0 PD MEDICAL DECISION MAKING - ED course ED course: 41-year-old man presents with left lower extremity injury concerning for infection despite 4 days of cephalexin antibiotics. no crepitus, no gas on xrays. IV clindamycin provided here in the emergency department and Oral clindamycin will be provided to his pharmacy. He will follow-up for wound check in 24 to 48 hours. Strict return precautions discussed. A line was drawn on the skin at the area of erythema and he understands that if it extends beyond the area he needs to return immediately for reevaluation.Plan to follow-up with orthopedics Departure - Departure Disposition: 01 Home, Self Care Clinical Impression: Wound infection, posttraumatic Condition: Stable Instructions: ED Wound Care Follow-Up: Mathew Pinzon MD [Provider Admit Priv/Credential] - Prescriptions: clindamycin HCL [Clindamycin HCl] 300 mg PO QID 7 Days #28 cap Comments: You were seen in the emergency department for wound infection. Please monitor very carefully and if the redness spreads beyond the line that I chantale then return immediately. You need to follow-up with a physician in 24 hours for wound check. Make sure you fill your antibiotics right away and start the new prescription immediately. Set appointment to follow-up with orthopedics this week.
== END 2022-04-21 01:44 | disposition home or self-care (01) ==
LOC: ED 22:48
DX: S81.812A Laceration without foreign body, left lower leg, initial encounter (principal); W27.0XXA Contact with workbench tool, initial encounter; I10 Essential (primary) hypertension; F17.200 Nicotine dependence, unspecified, uncomplicated
CPT/HCPCS: 36415; 73590; 80048; 83605; 85025; 85651; 86141; 87040; 87070; 87077; 87205; 96365; 99283; 99284; A9270

== ENCOUNTER 2022-05-15 21:23 | Emergency (ER) | payer MEDICAID ==
[2022-05-15] MEDS ORDERED: SODIUM CHLORIDE 0.9% 1,000 ML IV STA (21:48)
[2022-05-15] MEDS ORDERED: DROPERIDOL 5 MG/2 ML VIAL IVP STA (21:49)
[2022-05-15 22:16] LABS: BASOPHILS # (AUTO) 0.1 10^3/uL (0.0-0.1); BASOPHILS % (AUTO) 0.5 %; EOSINOPHILS # (AUTO) 0.3 10^3/uL (0.0-0.7); EOSINOPHILS % (AUTO) 3.5 %; HCT - HEMATOCRIT 45.8 % (42.0-52.0); LYMPHOCYTES # (AUTO) 1.9 10^3/uL (1.5-3.5); LYMPHOCYTES % (AUTO) 20.2 %; MEAN CORPUSCULAR HEMOGLOBIN 27.6 pg (27.0-31.0); MEAN CORPUSCULAR HGB CONC 32.8 g/dL (32.0-36.0); MEAN CORPUSCULAR VOLUME 84.2 fL (80.0-94.0); MEAN PLATELET VOLUME 9.7 fL (7.4-11.4); MONOCYTES # (AUTO) 1.1 10^3/uL (0.0-1.0); MONOCYTES % (AUTO) 11.3 %; NEUTROPHILS # (AUTO) 5.9 10^3/uL (1.5-6.6); NEUTROPHILS % (AUTO) 64.1 %; PLT - PLATELET COUNT 317 10^3/uL (130-450); RED BLOOD COUNT 5.44 10^6/uL (4.70-6.10); RED CELL DISTRIBUTION WIDTH 12.8 % (12.0-15.0); WHITE BLOOD COUNT 9.3 x10^3/uL (4.8-10.8)
[2022-05-15 22:29] LABS: ALBUMIN 4.3 g/dL (3.2-5.5); ALBUMIN/GLOBULIN RATIO 1.3 (1.0-2.2); ALKALINE PHOSPHATASE 114 IU/L (42-121); ALT ALANINE AMINOTRANSFERASE 46 IU/L (10-60); AST ASPARTATE AMINOTRANSFERASE 51 IU/L (10-42); BILIRUBIN,TOTAL < 0.2 mg/dL (0.2-1.0); BUN - BLOOD UREA NITROGEN 17 mg/dL (6-20); CALCIUM 9.4 mg/dL (8.5-10.3); CARBON DIOXIDE - CO2 31 mmol/L (21-32); CHLORIDE 86 mmol/L (101-111); CREATININE 1.2 mg/dL (0.6-1.2); GFR - MDRD 81 (>89); GLUCOSE 97 mg/dL (70-100); LIPASE 76 U/L (22-51); POTASSIUM 3.2 mmol/L (3.5-5.0); SODIUM 130 mmol/L (135-145); TOTAL PROTEIN 7.7 g/dL (6.7-8.2)
[2022-05-15] MEDS ORDERED: CETIRIZINE 10 MG TABLET PO STA (22:49)
[2022-05-15] MEDS ORDERED: POTASSIUM CHLORIDE 20 MEQ TABLET PO STA (22:49)
[2022-05-15] MEDS ORDERED: cephALEXin 250 MG CAPSULE PO STA (22:49)
--- NOTE | 2022-05-15 23:06 | ED Physician Documentation ---
PD HPI LOWER EXT INJURY - Stated complaint Stated Complaint: L LEG INJ - Chief complaint Chief Complaint: Wound - History obtained from History obtained from: Patient - Additional information Additional information: Patient is a 41-year-old male presenting for evaluation of 3 different complaints.Patient has a wound to his left leg that occurred 1 month ago. It was sutured at [facility] and he was started on Keflex. He was seen in our emergency department on April 25 for concerns of a worsening infection and started on clindamycin. He did follow-up with Dr. Pinzon who stopped the antibiotic As he stated the wound appeared to be healing fine without signs of infection and that its appearance was indicative of routine wound healing. Patient reports noticing abnormal drainage from one aspect of the wound over the last few days that is yellow in color. He reports having continued pain to the site. Patient also additionally reports having a body rash that Has been present since A few days after stopping the antibiotic Which is primarily to the face, back and extremities. He reports the rash is getting better. He reports the rash was so bad on his face at one point that his eyelids were swollen and he could hardly open his eyes. The rash has been improving. He denies currently being on any medications. He denies any new creams, lotions, detergents or other known exposures.The rash has been itchy. He also reports having nausea and vomiting for the last week.He has had previous ED visits for similar complaints and no longer has any medications at home. He Reports g eneralized abdominal discomfort. He denies diarrhea or constipation. He denies chest pain, fever, difficulty breathing, cough or congestion. Review of Systems Constitutional: denies: Fever Nose: denies: Congestion Throat: denies: Sore throat Cardiac: denies: Chest pain / pressure Respiratory: denies: Dyspnea GI: reports: Abdominal Pain, Nausea, Vomiting. denies: Diarrhea : denies: Dysuria Skin: reports: Rash, Laceration (s) Musculoskeletal: reports: Extremity pain Neurologic: denies: Headache PD PAST MEDICAL HISTORY - Past Medical History Cardiovascular: Hypertension Respiratory: None Neuro: None Endocrine/Autoimmune: None GI: GERD, Ulcers, Pancreatitis : None HEENT: None Psych: Depression, Anxiety, Panic attacks, Other Musculoskeletal: None Derm: None - Past Surgical History Past Surgical History: Yes General: Colonoscopy, EGD Ortho: Other - Present Medications Home Medications: Ambulatory Orders Medication Instructions Recorded Confirmed Cetirizine [ZyrTEC] 10 mg PO DAILY #7 tablet 05/15/22 Ondansetron Odt [Zofran] 4 mg TL Q6H PRN #10 tablet 05/15/22 cephALEXin [Keflex] 500 mg PO Q6H #28 cap 05/15/22 - Allergies Allergies/Adverse Reactions: Allergies Allergy/AdvReac Type Severity Reaction Status Date / Time haloperidol [From Haldol] Allergy Severe Anxiety Verified 05/15/22 21:36 ketorolac [From Toradol] AdvReac Anxiety Verified 05/15/22 21:36 - Social History Does the pt smoke?: Yes Smoking Status: Current every day smoker Does the pt drink ETOH?: Yes Does the pt have substance abuse?: Yes - Immunizations Immunizations are current?: Yes Immunizations: Other immun not current - POLST Patient has POLST: No POLST Status: Full Code PD ED PE NORMAL - General General: Alert and oriented X 3, No acute distress, Well developed/nourished - HEENT HEENT: Atraumatic, Other (dry, red, scaly rash to face including involvement of eyelids, no eyelid swelling; no oral lesions) - Neck Neck: Supple, no meningeal sign - Cardiac Cardiac: RRR, Strong equal pulses - Respiratory Respiratory: No respiratory distress, Clear bilaterally - Abdomen Abdomen: Soft, Non tender, Non distended - Derm Derm: Warm and dry - Extremities Extremities: Other (Healing laceration to Left lower extremity, thickened red skin To wound, small area of supeficial dehiscence to medial wound edge with no fluctuance/purulence; no crepitus; no streaking; no visible drainage) - Neuro Neuro: No motor deficit, No sensory deficit Results - Vitals Vitals: Vital Signs - 24 hr 05/15/22 05/15/22 21:26 23:36 Temperature 37 C Heart Rate 65 57 L Respiratory 16 18 Rate Blood Pressure 149/102 H 137/83 H O2 Saturation 100 100 Oxygen O2 Source Room air - Labs Labs: Laboratory Tests 05/15/22 05/15/22 22:06 22:06 WBC 9.3 RBC 5.44 Hgb 15.0 Hct 45.8 MCV 84.2 MCH 27.6 MCHC 32.8 RDW 12.8 Plt Count 317 MPV 9.7 Neut # (Auto) 5.9 Lymph # (Auto) 1.9 Jack # (Auto) 1.1 H Eos # (Auto) 0.3 Baso # (Auto) 0.1 Absolute Nucleated RBC 0.00 Nucleated RBC % 0.0 Sodium 130 L Potassium 3.2 L Chloride 86 L Carbon Dioxide 31 Anion Gap 13.0 BUN 17 Creatinine 1.2 Estimated GFR (MDRD) 81 L Glucose 97 Calcium 9.4 Total Bilirubin < 0.2 L AST 51 H ALT 46 Alkaline Phosphatase 114 Total Protein 7.7 Albumin 4.3 Globulin 3.4 Albumin/Globulin Ratio 1.3 Lipase 76 H PD MEDICAL DECISION MAKING - ED course Complexity details: reviewed results, re-evaluated patient, d/w patient, d/w family ED course: Patient with 3 separate complaints. Evaluated for facial rash which I feel is an allergic process. It does appear to be improving. Patient denies a history of eczema.Does not appear infectious. No mucosal involvement.Also has wound to his left leg that has been healing over the course of the last month.There is a small area of dehiscence to the wound with reported drainage. I did not see any drainage and there is no fluctuance to suggest abscess.However as there is an opening in the wound and patient reports increased pain and abnormal drainage I have started him on an antibiotic for this. I encouraged close follow-up with PCP. Patient also reporting a nausea and vomiting which he has had previous ED visits with similar complaints for. Overall his abdominal exam is benign. Labs are reviewed. He is feeling better with IV fluids and antiemetics and tolerating p.o. He is counseled on concerning symptoms to return for. Family member at the bedside also present for conversations. Departure - Departure Disposition: 01 Home, Self Care Clinical Impression: Dermatitis, Wound infection Nausea & vomiting Qualifiers: Vomiting type: unspecified Qualified Code(s): R11.2 - Nausea with vomiting, unspecified Condition: Stable Instructions: ED Allergic Reaction General Other, ED Nausea Vomiting, ED Wound Check Laceration FU Infec Prescriptions: cephALEXin [Keflex] 500 mg PO Q6H #28 cap Ondansetron Odt [Zofran] 4 mg TL Q6H PRN #10 tablet PRN Reason: Nausea / Vomiting Cetirizine [ZyrTEC] 10 mg PO DAILY #7 tablet Comments: It is unclear what is causing the rash on your face but it does appear to be improving. I do not think the rash on your face is a sign of infection but looks to be more of an allergic process. I have started you on cetirizine which is an antihistamine but less sedating than benadryl. We have also evaluated your leg wound which may be getting infected as there is a small opening and abnormal drainage. I have started you on antibiotic for this. Please have close follow-up with your primary care doctor. You are also evaluated for nausea and vomiting. Your potassium was slightly low which we did replace. Please continue to make sure you stay hydrated. I would recommend starting with a clear liquid diet and advancing as tolerated. I have sent prescriptions for an antibiotic for Your leg infection, antihistamines for your facial rash and nausea medications to [facility]. Discharge Date/Time: 05/15/22 23:36
[2022-05-15 23:37] VITALS: BP 137/83
== END 2022-05-15 23:36 | disposition home or self-care (01) ==
LOC: ED 21:23
DX: L30.9 Dermatitis, unspecified (principal); S81.802A Unspecified open wound, left lower leg, initial encounter; L08.9 Local infection of the skin and subcutaneous tissue, unspecified; B96.89 Other specified bacterial agents as the cause of diseases classified elsewhere; X58.XXXA Exposure to other specified factors, initial encounter; R11.2 Nausea with vomiting, unspecified; F17.200 Nicotine dependence, unspecified, uncomplicated; E87.6 Hypokalemia
CPT/HCPCS: 36415; 80053; 83690; 85025; 96361; 96374; 99284; A9270

== ENCOUNTER 2022-07-03 14:56 | Outpatient (CLI) | payer MEDICAID | END 2022-07-03 14:57 | disposition critical access hospital (66) | LOC: EMS 14:56 | DX: R10.13 Epigastric pain (principal); R10.816 Epigastric abdominal tenderness; R11.2 Nausea with vomiting, unspecified; R19.7 Diarrhea, unspecified | CPT/HCPCS: A0425; A0427; A0999 ==

== ENCOUNTER 2022-07-03 15:24 | Emergency (ER) | payer MEDICAID ==
[2022-07-03] MEDS ORDERED: DROPERIDOL 5 MG/2 ML VIAL IVP STA (15:32)
[2022-07-03] MEDS ORDERED: SODIUM CHLORIDE 0.9% 1,000 ML IV STA ×3 (15:32→18:09)
--- NOTE | 2022-07-03 15:33 | ED Physician Documentation ---
PD HPI ABD PAIN - Stated complaint Stated Complaint: ABD PAIN - Chief complaint Chief Complaint: Abd Pain - History obtained from History obtained from: Patient, EMS - Additional information Additional information: 41-year-old gentleman with cannabinoid hyperemesis syndrome presents with his usual upper abdominal pain with vomiting. He typically though it has lasted quite some time, he has been in pain he says for 14 days, has not sought medical care in that time. Denies hematemesis. Review of Systems Ten Systems: 10 systems reviewed and negative Constitutional: denies: Fever, Chills Cardiac: reports: Reviewed and negative Respiratory: reports: Reviewed and negative PD PAST MEDICAL HISTORY - Past Medical History Cardiovascular: Hypertension Respiratory: None Neuro: None Endocrine/Autoimmune: None GI: GERD, Ulcers, Pancreatitis : None HEENT: None Psych: Depression, Anxiety, Panic attacks, Other Musculoskeletal: None Derm: None - Past Surgical History Past Surgical History: Yes General: Colonoscopy, EGD Ortho: Other - Present Medications Home Medications: Ambulatory Orders Medication Instructions Recorded Confirmed Cetirizine [ZyrTEC] 10 mg PO DAILY #7 tablet 05/15/22 Ondansetron Odt [Zofran] 4 mg TL Q6H PRN #10 tablet 05/15/22 cephALEXin [Keflex] 500 mg PO Q6H #28 cap 05/15/22 - Allergies Allergies/Adverse Reactions: Allergies Allergy/AdvReac Type Severity Reaction Status Date / Time haloperidol [From Haldol] Allergy Severe Anxiety Verified 07/03/22 15:28 ketorolac [From Toradol] AdvReac Anxiety Verified 07/03/22 15:28 - Social History Does the pt smoke?: Yes Smoking Status: Current every day smoker Does the pt drink ETOH?: Yes Does the pt have substance abuse?: Yes - Immunizations Immunizations are current?: Yes Immunizations: Other immun not current - POLST Patient has POLST: No POLST Status: Full Code PD ED PE NORMAL - Vitals Vital signs reviewed: Yes - General General: Alert and oriented X 3, Other (He appears uncomfortable) - Cardiac Cardiac: RRR, No murmur - Respiratory Respiratory: No respiratory distress, Clear bilaterally - Abdomen Abdomen: Normal bowel sounds, Soft, Non tender - Derm Derm: Normal color, Warm and dry - Extremities Extremities: No edema, No calf tenderness / cord - Neuro Neuro: Alert and oriented X 3, Normal speech Results - Vitals Vitals: Vital Signs - 24 hr 07/03/22 07/03/22 07/03/22 15:28 15:31 17:31 Temperature 37.5 C 37.5 C 37.3 C Heart Rate 66 66 62 Respiratory 16 16 16 Rate Blood Pressure 150/90 H 150/90 H 150/90 H O2 Saturation 100 100 100 07/03/22 19:00 Temperature Heart Rate 59 L Respiratory 15 Rate Blood Pressure 147/94 H O2 Saturation 100 Oxygen O2 Source Room air - Labs Labs: Laboratory Tests 07/03/22 07/03/22 07/03/22 15:39 15:39 17:50 WBC 6.3 RBC 6.06 Hgb 16.7 Hct 50.3 MCV 83.0 MCH 27.6 MCHC 33.2 RDW 12.8 Plt Count 387 MPV 9.5 Neut # (Auto) 4.0 Lymph # (Auto) 1.5 Swift # (Auto) 0.7 Eos # (Auto) 0.0 Baso # (Auto) 0.1 Absolute Nucleated RBC 0.00 Nucleated RBC % 0.0 Sodium 132 L 132 L Potassium 2.8 L 2.9 L Chloride 78 L* 90 L Carbon Dioxide 37 H 32 Anion Gap 17.0 H 10.0 BUN 43 H 36 H Creatinine 1.9 H 1.4 H Estimated GFR (MDRD) 48 L 68 L Glucose 114 H 112 H Calcium 10.1 8.5 Magnesium 2.9 H 2.4 Total Bilirubin 0.9 AST 33 ALT 37 Alkaline Phosphatase 90 Total Protein 8.6 H Albumin 4.7 Globulin 3.9 Albumin/Globulin Ratio 1.2 PD Medical Decision Making - ED course ED course: 41-year-old gentleman presents with an exacerbation of cannabinoid hyperemesis syndrome with benign belly. Lab work here notes that he has moderate LAZARO with a creatinine of 1.9, his baseline creatinine is right around 1. He has had significant LAZARO with his exacerbations of this in the past. He was hydrated with 2 L of normal saline also noting that he has significant hypochloremia at 78 and given a K rider For hypokalemia. Subsequently repeat blood work showed slightly improved potassium and significantly improved LAZARO and hypochloremia. Prior to discharge she was also given oral potassium and 1/3 L of saline and feeling much better. He tolerated p.o. here without difficulty. Departure - Departure Disposition: 01 Home, Self Care Clinical Impression: Cannabis hyperemesis syndrome concurrent with and due to cannabis abuse, LAZARO (acute kidney injury), Hypochloremia Condition: Good Instructions: ED Nausea Vomiting Comments: You did get quite dehydrated this time, we rechecked your labs though and they were much improved. Please return if worsening or if not keeping down foods and water. As discussed previously, it is imperative that you quit using cannabis/THC. Discharge Date/Time: 07/03/22 19:00
[2022-07-03 16:01] LABS: ALBUMIN 4.7 g/dL (3.2-5.5); ALBUMIN/GLOBULIN RATIO 1.2 (1.0-2.2); BILIRUBIN,TOTAL 0.9 mg/dL (0.2-1.0); CALCIUM 10.1 mg/dL (8.5-10.3); CREATININE 1.9 mg/dL (0.6-1.2); MAGNESIUM 2.9 mg/dL (1.7-2.8); POTASSIUM 2.8 mmol/L (3.5-5.0); TOTAL PROTEIN 8.6 g/dL (6.7-8.2)
[2022-07-03] MEDS ORDERED: POTASSIUM CHLOR 10 MEQ/100 ML 10 MEQ/100 ML BAG IV STA (16:05)
[2022-07-03 16:09] LABS: BASOPHILS # (AUTO) 0.1 10^3/uL (0.0-0.1); BASOPHILS % (AUTO) 0.8 %; EOSINOPHILS % (AUTO) 0.6 %; HCT - HEMATOCRIT 50.3 % (42.0-52.0); HGB - HEMOGLOBIN 16.7 g/dL (14.0-18.0); LYMPHOCYTES # (AUTO) 1.5 10^3/uL (1.5-3.5); LYMPHOCYTES % (AUTO) 24.1 %; MEAN CORPUSCULAR HEMOGLOBIN 27.6 pg (27.0-31.0); MEAN CORPUSCULAR HGB CONC 33.2 g/dL (32.0-36.0); MEAN PLATELET VOLUME 9.5 fL (7.4-11.4); MONOCYTES # (AUTO) 0.7 10^3/uL (0.0-1.0); MONOCYTES % (AUTO) 10.7 %; NEUTROPHILS % (AUTO) 63.6 %; PLT - PLATELET COUNT 387 10^3/uL (130-450); RED BLOOD COUNT 6.06 10^6/uL (4.70-6.10); RED CELL DISTRIBUTION WIDTH 12.8 % (12.0-15.0); WHITE BLOOD COUNT 6.3 x10^3/uL (4.8-10.8)
[2022-07-03 18:05] LABS: CALCIUM 8.5 mg/dL (8.5-10.3); CREATININE 1.4 mg/dL (0.6-1.2); MAGNESIUM 2.4 mg/dL (1.7-2.8); POTASSIUM 2.9 mmol/L (3.5-5.0)
[2022-07-03] MEDS ORDERED: POTASSIUM CHLORIDE 20 MEQ TABLET PO STA (18:09)
[2022-07-03 19:00] VITALS: BP 147/94
== END 2022-07-03 19:00 | disposition home or self-care (01) ==
LOC: EDUNIT# → ED 15:24
DX: R11.11 Vomiting without nausea (principal); F12.10 Cannabis abuse, uncomplicated; E86.0 Dehydration; N17.9 Acute kidney failure, unspecified; E87.8 Other disorders of electrolyte and fluid balance, not elsewhere classified; E87.6 Hypokalemia; F17.200 Nicotine dependence, unspecified, uncomplicated
CPT/HCPCS: 36415; 80048; 80053; 83735; 85025; 96361; 96365; 96375; 99283; 99284; A9270

== ENCOUNTER 2022-11-15 07:30 | Outpatient (CLI) | payer MEDICAID | END 2022-11-15 23:59 | disposition left against medical advice (07) | LOC: EMS 07:30 | DX: K92.0 Hematemesis (principal); R10.84 Generalized abdominal pain ==

== ENCOUNTER 2023-02-01 06:03 | Outpatient (CLI) | payer MEDICAID | END 2023-02-01 06:05 | disposition critical access hospital (66) | LOC: EMS 06:03 | DX: R10.11 Right upper quadrant pain (principal); R10.12 Left upper quadrant pain; R11.2 Nausea with vomiting, unspecified; R10.811 Right upper quadrant abdominal tenderness; R10.812 Left upper quadrant abdominal tenderness | CPT/HCPCS: A0425; A0427; A0999 ==